=== PATIENT | male | born 1980 | race Caucasian/White ===

== ENCOUNTER 2016-12-28 09:36 | Emergency (ER) | payer MEDICAID ==
[2016-12-28 10:12] VITALS: O2SAT 98
[2016-12-28] MEDS ORDERED: Sodium Chloride 0.9% 1,000 ML IV STA (12:20)
[2016-12-28 12:23] LABS: BASO % 0.3 % (0.0-2.0); EOS % 0.1 % (0.0-4.0); HEMATOCRIT 36.6 % (35.0-51.0); LYMPH # 0.3 K/uL (1.0-4.3); LYMPH % 13.8 % (20.0-40.0); MEAN CELL VOLUME 86.7 fl (80.0-94.0); MEAN CORPUSCULAR HEMOGLOBIN 28.7 pg (27.0-31.0); MEAN CORPUSCULAR HGB CONC 33.1 g/dL (33.0-37.0); MEAN PLATELET VOLUME 8.6 fl (7.2-11.7); MONO # 0.6 K/uL (0.0-0.8); MONO % 27.8 % (0.0-10.0); NEUT # 1.3 K/uL (1.8-7.0); NRBC % 0.1 % (0.0-0.0); PLATELET COUNT 104 K/uL (130-400); RED CELL DISTRIBUTION WIDTH 16.1 % (11.5-14.5); WHITE BLOOD COUNT 2.2 K/uL (4.8-10.8)
[2016-12-28 12:28] LABS: ALB/GLOB RATIO 0.9 (1.0-2.1); ALKALINE PHOSPHATASE 113 U/L (38-126); ALT/SGPT 30 U/L (21-72); AST/SGOT 36 U/L (17-59); BILIRUBIN,TOTAL 0.5 mg/dl (0.2-1.3); BLOOD UREA NITROGEN 11 mg/dl (9-20); CALCIUM 8.7 mg/dL (8.4-10.2); CARBON DIOXIDE 27 mmol/L (22-30); CHLORIDE 104 mmol/L (98-107); GFR AFRICAN-AMERICAN > 60; GLUCOSE,RANDOM 108 mg/dL (75-110); LIPASE 71 U/L (23-300); POTASSIUM 3.7 MMOL/L (3.6-5.0); SODIUM 140 mmol/l (132-148); TOTAL PROTEIN 7.8 G/DL (6.3-8.2)
--- NOTE | 2016-12-28 13:19 | ED PDOC ---
HPI: Abdomen Time Seen by Provider: 12/28/16 10:58 Chief Complaint (Nursing): GI Problem Chief Complaint (Provider): sent form clinic Associated Symptoms: denies: Fever, Chills, Nausea, Vomiting, Diarrhea, Loss Of Appetite, Back Pain, Chest Pain, Constipation, Urinary Symptoms Additional Complaint(s): 36yo M in ER for eval of CRUZ and diarrhea x 2-3days without vomiting body aches and mild abd discomfort. state he had chicken 2d ago and noted continuous diarrhea since. Past Medical History Reviewed: Historical Data, Nursing Documentation, Vital Signs Vital Signs: Last Vital Signs Temp 99.0 F 12/28/16 11:03 Pulse 86 12/28/16 11:03 Resp 18 12/28/16 11:03 BP 113/66 12/28/16 11:03 Pulse Ox 98 12/28/16 13:20 - Medical History PMH: HIV (vl undetectable) - Family History Family History: States: Unknown Family Hx - Home Medications Home Medications: Ambulatory Orders Medication Instructions Recorded Dicyclomine [Bentyl] 20 mg PO Q6H PRN #20 tab 10/16/14 Ondansetron [Zofran Odt] 4 mg PO Q4H PRN #10 odt 10/16/14 Permethrin 5% [Permethrin 5% Cream] 60 gm EXT DAILY #1 tube 01/06/15 Triamcinolone 0.1% [Triamcinolone 0.1 cre TP BID #1 tube 01/22/15 0.1% Cream] Ondansetron ODT [Zofran ODT] 4 mg PO Q8 PRN #12 odt 10/19/15 - Allergies Allergies/Adverse Reactions: Allergies Allergy/AdvReac Type Severity Reaction Status Date / Time No Known Allergies Allergy Verified 12/28/16 11:03 Review of Systems ROS Statement: Except As Marked, All Systems Reviewed And Found Negative Constitutional: Negative for: Fever, Chills Gastrointestinal: Positive for: Nausea, Abdominal Pain, Diarrhea. Negative for : Vomiting Genitourinary Male: Negative for: Dysuria Skin: Negative for: Rash Neurological: Negative for: Weakness Physical Exam - Reviewed Nursing Documentation Reviewed: Yes Vital Signs Reviewed: Yes - Physical Exam Appears: Positive for: Well, Non-toxic, No Acute Distress Head Exam: Positive for: ATRAUMATIC, NORMAL INSPECTION, NORMOCEPHALIC Skin: Positive for: Normal Color, Warm, DRY Eye Exam: Positive for: EOMI, Normal appearance, PERRL Cardiovascular/Chest: Positive for: Regular Rate, Rhythm Respiratory: Positive for: CNT, Normal Breath Sounds Gastrointestinal/Abdominal: Positive for: Normal Exam, Bowel Sounds, Soft. Negative for: Tenderness Extremity: Positive for: Normal ROM Neurologic/Psych: Positive for: Alert, Oriented - Laboratory Results Result Diagrams: 12/28/16 12:08 12/28/16 12:08 - ECG O2 Sat by Pulse Oximetry: 98 - Progress ED Course And Treament: Orders Category Date Time Status COMP METABOLIC PANEL Stat Chem 12/28/16 12:08 Completed LIPASE Stat Chem 12/28/16 12:08 Completed CBC (WITH DIFFERENTIAL) Stat JANINA 12/28/16 12:08 Results Acetaminophen [Tylenol 325mg tab] Med 12/28/16 12:20 Discontinued 650 mg PO STAT STA Famotidine [Pepcid] Med 12/28/16 11:49 Discontinued 20 mg .ROUTE .STK-MED ONE Famotidine [Pepcid] Med 12/28/16 11:15 Discontinued 20 mg PO STAT STA Ondansetron [Zofran Inj] Med 12/28/16 11:49 Discontinued 4 mg .ROUTE .STK-MED ONE Ondansetron [Zofran Inj] Med 12/28/16 11:15 Discontinued 4 mg IVP STAT STA Sodium Chloride 0.9% 1,000 ml Med 12/28/16 12:20 Active IV 1,000 mls/hr IV Insertion (Saline Lock) ONCE NURSING 12/28/16 11:16 Active Medical Decision Making Medical Decision Making: impression: viral GI-pt feels much improved in ER and will be d/c with advised to use supportive care and f.u with pmd. Disposition - Clinical Impression Clinical Impression: Viral gastroenteritis - Patient ED Disposition Is Patient to be Admitted: No Counseled Patient/Family Regarding: Studies Performed, Diagnosis, Need For Followup - Disposition Disposition: Routine/Home Disposition Time: 13:45 Condition: STABLE Instructions: Gastroenteritis (ED)
[2016-12-28 13:54] VITALS: BP 123/69; PULSE 70; RESP 16; TEMP 98
[2016-12-28 13:55] LABS: METAMYELOCYTE 2 % (0-0); NEUTROPHIL 59 % (42-75); TOTAL CELLS COUNTED 100
== END 2016-12-28 13:54 | disposition home or self-care (01) ==
LOC: H.ER 09:36
DX: A08.4 Viral intestinal infection, unspecified (principal); B20 Human immunodeficiency virus [HIV] disease
CPT/HCPCS: 80053; 83690; 85025; 96374; 99284; J2405; J7040

== ENCOUNTER 2017-01-11 21:08 | Emergency (ER) | payer MEDICAID ==
[2017-01-11 21:22] VITALS: BP 122/72; PULSE 113; RESP 16; O2SAT 99
--- NOTE | 2017-01-11 21:47 | ED PDOC ---
HPI: General Adult Time Seen by Provider: 01/11/17 21:32 Chief Complaint (Nursing): Flu-like Symptoms Chief Complaint (Provider): Flu-like Symptoms History Per: Patient History/Exam Limitations: no limitations Onset/Duration Of Symptoms: Days (x1) Additional Complaint(s): 36yo M HIV positive in ER with one day of fever body aches frontal CRUZ x 1d. denies fever sore throat ear pain chest pain rash. Past Medical History Reviewed: Historical Data, Nursing Documentation, Vital Signs Vital Signs: Last Vital Signs Temp 101.3 F H 01/11/17 21:20 Pulse 113 H 01/11/17 21:20 Resp 16 01/11/17 21:20 BP 122/72 01/11/17 21:20 Pulse Ox 99 01/11/17 23:28 - Medical History PMH: HIV (vl undetectable) - Family History Family History: States: Unknown Family Hx - Home Medications Home Medications: Ambulatory Orders Medication Instructions Recorded Dicyclomine [Bentyl] 20 mg PO Q6H PRN #20 tab 10/16/14 Ondansetron [Zofran Odt] 4 mg PO Q4H PRN #10 odt 10/16/14 Permethrin 5% [Permethrin 5% Cream] 60 gm EXT DAILY #1 tube 01/06/15 Triamcinolone 0.1% [Triamcinolone 0.1 cre TP BID #1 tube 01/22/15 0.1% Cream] Ondansetron ODT [Zofran ODT] 4 mg PO Q8 PRN #12 odt 10/19/15 Oseltamivir Phosphate [Tamiflu] 75 mg PO BID #10 capsule 01/11/17 - Allergies Allergies/Adverse Reactions: Allergies Allergy/AdvReac Type Severity Reaction Status Date / Time No Known Allergies Allergy Verified 12/28/16 11:03 Review of Systems ROS Statement: Except As Marked, All Systems Reviewed And Found Negative Constitutional: Positive for: Fever, Chills ENT: Negative for: Ear Pain Respiratory: Positive for: Cough. Negative for: Sputum Gastrointestinal: Positive for: Nausea. Negative for: Diarrhea Musculoskeletal: Positive for: Other (Body Aches) Neurological: Positive for: Headache (frontal) Physical Exam - Reviewed Nursing Documentation Reviewed: Yes Vital Signs Reviewed: Yes - Physical Exam Appears: Positive for: Well, Non-toxic, No Acute Distress Head Exam: Positive for: ATRAUMATIC, NORMAL INSPECTION, NORMOCEPHALIC Skin: Positive for: Normal Color, Warm, DRY Eye Exam: Positive for: EOMI, Normal appearance, PERRL ENT: Positive for: Normal ENT Inspection Neck: Positive for: Normal, Painless ROM, Supple Cardiovascular/Chest: Positive for: Regular Rate, Rhythm. Negative for: Murmur Respiratory: Positive for: Normal Breath Sounds. Negative for: Respiratory Distress Neurologic/Psych: Positive for: Alert, Oriented, Gait (stable, no slurred speeech). Negative for: Motor/Sensory Deficits, Facial Droop - Laboratory Results Result Diagrams: 01/11/17 23:07 01/11/17 23:07 - ECG O2 Sat by Pulse Oximetry: 99 (RA) Pulse Ox Interpretation: Normal - Progress ED Course And Treament: pt was tested for the flu-test is negative pt was given Motrin-however CRUZ still present given Reglan, Tylenol and Benadryl with NS fluids. chest xray and labs re-eval VS. Orders Category Date Time Status CMP [COMP METABOLIC PANEL] Stat Chem 01/11/17 22:42 Uncollected CHEST TWO VIEWS (PA/LAT) [RAD] Stat Exams 01/11/17 21:42 Taken CBC (WITH DIFFERENTIAL) Stat JANINA 01/11/17 22:42 Uncollected Acetaminophen [Tylenol 325mg tab] Med 01/11/17 22:53 Discontinued 650 mg .ROUTE .STK-MED ONE Acetaminophen [Tylenol 325mg tab] Med 01/11/17 22:47 Stat 650 mg PO STAT STA DiphenhydrAMINE [Benadryl] Med 01/11/17 22:47 Stat 25 mg IVP STAT STA DiphenhydrAMINE [Benadryl] Med 01/11/17 22:53 Discontinued 50 mg .ROUTE .STK-MED ONE Ibuprofen [Motrin Tab] Med 01/11/17 22:06 Discontinued 600 mg .ROUTE .STK-MED ONE Ibuprofen [Motrin Tab] Med 01/11/17 21:59 Discontinued 600 mg PO STAT STA Metoclopramide [Reglan] Med 01/11/17 22:53 Discontinued 10 mg .ROUTE .STK-MED ONE Metoclopramide [Reglan] Med 01/11/17 22:47 Once 10 mg IVP ONCE ONE Sodium Chloride 0.9% 1,000 ml Med 01/11/17 21:59 Active IV 1,000 mls/hr INFLUENZA A B Stat Serology 01/11/17 22:07 Completed Medical Decision Making Medical Decision Making: Time: 21:40 Initial Impression: Viral illness- VS improved in ER pt feels much better, CRUZ has completely resolved and now afebrile. pt d/c with f.u with pmd for continued care. Plan: --X-Ray chest 2 views (due to patient's HIV status) --Influenza A B --Reevaluation labs: 01/11/17 01/11/17 01/11/17 23:07 23:07 22:07 WBC 3.9 L D RBC 4.14 L Hgb 12.2 Hct 36.2 MCV 87.4 MCH 29.4 MCHC 33.7 RDW 16.4 H Plt Count 124 L D MPV 8.1 Neut % (Auto) 66.7 Lymph % (Auto) 11.7 L Ida % (Auto) 21.1 H Eos % (Auto) 0.1 Baso % (Auto) 0.4 Neut # 2.6 Lymph # 0.5 L Ida # 0.8 Eos # 0.0 Baso # 0.0 Neutrophils % (Manual) Pending Lymphocytes % (Manual) Pending Monocytes % (Manual) Pending Platelet Estimate Pending Sodium 134 Potassium 3.3 L Chloride 103 Carbon Dioxide 25 Anion Gap 9 L BUN 14 Creatinine 0.8 Est GFR ( Amer) > 60 Est GFR (Non-Af Amer) > 60 Random Glucose 108 Calcium 8.0 L Total Bilirubin 0.7 AST 26 ALT 26 Alkaline Phosphatase 105 Total Protein 7.3 Albumin 3.4 L Globulin 3.8 Albumin/Globulin Ratio 0.9 L Influenza Typ A,B (EIA) Negative for flu a/b Scribe Attestation: Documented by Mynor George, acting as a scribe for Savita Dye PA-C Provider Scribe Attestation: All medical record entries made by the Scribe were at my direction and personally dictated by me. I have reviewed the chart and agree that the record accurately reflects my personal performance of the history, physical exam, medical decision making, and the department course for this patient. I have also personally directed, reviewed, and agree with the discharge instructions and disposition. Disposition - Clinical Impression Clinical Impression: Influenza-like symptoms - Patient ED Disposition Is Patient to be Admitted: No Counseled Patient/Family Regarding: Studies Performed, Diagnosis, Need For Followup, Rx Given - Disposition Disposition: Routine/Home Disposition Time: 23:34 Condition: STABLE Prescriptions: Oseltamivir Phosphate [Tamiflu] 75 mg PO BID #10 capsule Instructions: Influenza (ED) Forms: [facility] (Swedish)
[2017-01-11] MEDS ORDERED: Sodium Chloride 0.9% 1,000 ML IV STA (21:59)
[2017-01-11] MEDS ORDERED: DiphenhydrAMINE 50 mg/ml Inj IVP STA (22:47)
[2017-01-11] MEDS ORDERED: DiphenhydrAMINE 50 mg/ml Inj ONE (22:53)
[2017-01-11 23:17] LABS: BASO % 0.4 % (0.0-2.0); EOS % 0.1 % (0.0-4.0); HEMATOCRIT 36.2 % (35.0-51.0); LYMPH # 0.5 K/uL (1.0-4.3); LYMPH % 11.7 % (20.0-40.0); MEAN CELL VOLUME 87.4 fl (80.0-94.0); MEAN CORPUSCULAR HEMOGLOBIN 29.4 pg (27.0-31.0); MEAN CORPUSCULAR HGB CONC 33.7 g/dL (33.0-37.0); MEAN PLATELET VOLUME 8.1 fl (7.2-11.7); MONO # 0.8 K/uL (0.0-0.8); MONO % 21.1 % (0.0-10.0); NEUT # 2.6 K/uL (1.8-7.0); NEUT % 66.7 % (50.0-75.0); NRBC % 0.3 % (0.0-0.0); PLATELET COUNT 124 K/uL (130-400); RED CELL DISTRIBUTION WIDTH 16.4 % (11.5-14.5); WHITE BLOOD COUNT 3.9 K/uL (4.8-10.8)
[2017-01-11 23:24] LABS: ALB/GLOB RATIO 0.9 (1.0-2.1); ALKALINE PHOSPHATASE 105 U/L (38-126); ALT/SGPT 26 U/L (21-72); AST/SGOT 26 U/L (17-59); BILIRUBIN,TOTAL 0.7 mg/dl (0.2-1.3); BLOOD UREA NITROGEN 14 mg/dl (9-20); CARBON DIOXIDE 25 mmol/L (22-30); CHLORIDE 103 mmol/L (98-107); GFR AFRICAN-AMERICAN > 60; GLUCOSE,RANDOM 108 mg/dL (75-110); SODIUM 134 mmol/l (132-148); TOTAL PROTEIN 7.3 G/DL (6.3-8.2)
[2017-01-11 23:31] LABS: POTASSIUM 3.3 MMOL/L (3.6-5.0)
[2017-01-11] MEDS ORDERED: Potassium Chloride 10 mEq ER Tab PO ONE (23:35)
[2017-01-11 23:36] VITALS: TEMP 99.4
[2017-01-11] MEDS ORDERED: Potassium Chloride 20 mEq ER Tab PO ONE (23:39)
[2017-01-12 04:34] LABS: NEUTROPHIL 75 % (42-75); STOMATOCYTES SLIGHT; TOTAL CELLS COUNTED 100
--- NOTE | 2017-01-12 05:52 | RAD ---
HISTORY: cough COMPARISON: No prior. TECHNIQUE: Chest PA and lateral FINDINGS: LUNGS: No active pulmonary disease. PLEURA: No significant pleural effusion identified. No pneumothorax apparent. CARDIOVASCULAR: Normal. OSSEOUS STRUCTURES: No significant abnormalities. VISUALIZED UPPER ABDOMEN: Normal. OTHER FINDINGS: None. IMPRESSION: No active disease.
== END 2017-01-12 00:08 | disposition home or self-care (01) ==
LOC: H.ER 21:08
DX: R50.9 Fever, unspecified (principal); R05 Cough; R11.0 Nausea; Z21 Asymptomatic human immunodeficiency virus [HIV] infection status
CPT/HCPCS: 71020; 80053; 85025; 87804; 96361; 96374; 96375; 99282; J1200; J2765; J7040

== ENCOUNTER 2017-01-15 09:43 | Emergency (ER) | payer MEDICAID ==
[2017-01-15 09:50] VITALS: BMI 23.6
[2017-01-15 09:51] VITALS: BP 111/64; PULSE 101; RESP 20; TEMP 99.6; O2SAT 97
[2017-01-15] MEDS ORDERED: Sodium Chloride 0.9% 1,000 ML IV STA ×2 (11:13→11:56)
[2017-01-15] MEDS ORDERED: DiphenhydrAMINE 50 mg/ml Inj IVP STA (11:14)
[2017-01-15] MEDS ORDERED: DiphenhydrAMINE 50 mg/ml Inj ONE (11:41)
--- NOTE | 2017-01-15 11:47 | ED PDOC ---
HPI: Abdomen Time Seen by Provider: 01/15/17 10:53 Chief Complaint (Nursing): Abdominal Pain Chief Complaint (Provider): Vomiting and Diarrhea History Per: Patient Onset/Duration Of Symptoms: Days (14 days), Intermittent Episodes Current Symptoms Are (Timing): Still Present Additional Complaint(s): 36 y/o male with a past medical history of HIV, presents to the ED complaining of intermittent episodes of vomiting and diarrhea, with an onset of 14 days ago. Patient reports of eating a full meal yesterday, but then suffering from 10 episodes of vomiting and diarrhea. Of note, the patient stopped taking his antiretrovirals and comes in with a cd4 count of 34. Patient also reports of having a headache, nausea, and diarrhea, but denies any fever, neck stiffness, or vomiting. Against Medical Advice - AMA Patient Left Against Medical Advice: The patient declines admission to the hospital and wishes to leave the Emergency Department. This action is against my medical advice. This decision was made with informed refusal. The patient was told that admission to the hospital is necessary. Explanation of the reasons why were discussed. The risks of leaving were explained to the patient and include, but are not limited to, worsening of known or currently unknown conditions, permanent disability and from undiagnosed or untreated conditions. The patient has the capacity to make this informed decision and understands my explanation of the current medical problem and risks of leaving. The patient voluntarily accepts these risks and signed an AMA form documenting our conversation. The patient was given the opportunity to ask questions and reconsider. The patient was encouraged to return to the Emergency Department at any time for further care. [id number] Patient has elected to leave [facility]. Past Medical History Reviewed: Historical Data, Nursing Documentation, Vital Signs Vital Signs: Last Vital Signs Temp 99.6 F 01/15/17 09:50 Pulse 101 H 01/15/17 09:50 Resp 20 01/15/17 09:50 BP 111/64 01/15/17 09:50 Pulse Ox 97 01/16/17 15:50 - Medical History PMH: HIV (vl undetectable) - Surgical History Surgical History: No Surg Hx - Family History Family History: States: Unknown Family Hx - Social History Current smoker - smoking cessation education provided: No Ex-Smoker (has not smoked in the last 12 months): No Alcohol: None Drugs: Denies - Home Medications Home Medications: Ambulatory Orders Medication Instructions Recorded Dicyclomine [Bentyl] 20 mg PO Q6H PRN #20 tab 10/16/14 Ondansetron [Zofran Odt] 4 mg PO Q4H PRN #10 odt 10/16/14 Permethrin 5% [Permethrin 5% Cream] 60 gm EXT DAILY #1 tube 01/06/15 Triamcinolone 0.1% [Triamcinolone 0.1 cre TP BID #1 tube 01/22/15 0.1% Cream] Ondansetron ODT [Zofran ODT] 4 mg PO Q8 PRN #12 odt 10/19/15 Oseltamivir Phosphate [Tamiflu] 75 mg PO BID #10 capsule 01/11/17 - Allergies Allergies/Adverse Reactions: Allergies Allergy/AdvReac Type Severity Reaction Status Date / Time No Known Allergies Allergy Verified 12/28/16 11:03 Review of Systems ROS Statement: Except As Marked, All Systems Reviewed And Found Negative Constitutional: Negative for: Fever Gastrointestinal: Positive for: Nausea, Diarrhea. Negative for: Vomiting Physical Exam - Reviewed Nursing Documentation Reviewed: Yes Vital Signs Reviewed: Yes - Physical Exam Appears: Positive for: Non-toxic, No Acute Distress Head Exam: Positive for: ATRAUMATIC, NORMOCEPHALIC Skin: Positive for: Normal Color, Warm Eye Exam: Positive for: Normal appearance, EOMI, PERRL ENT: Positive for: Normal ENT Inspection Neck: Positive for: Normal, Painless ROM, Supple Cardiovascular/Chest: Positive for: Regular Rate, Rhythm. Negative for: Murmur Respiratory: Positive for: Normal Breath Sounds. Negative for: Respiratory Distress Gastrointestinal/Abdominal: Positive for: Normal Exam, Soft, Tenderness ( bilateral upper quarant). Negative for: Guarding, Rebound Back: Positive for: Normal Inspection Extremity: Positive for: Normal ROM. Negative for: Pedal Edema, Deformity Neurologic/Psych: Positive for: Alert, Oriented. Negative for: Motor/Sensory Deficits - Laboratory Results Result Diagrams: 01/15/17 11:33 01/15/17 11:33 - ECG O2 Sat by Pulse Oximetry: 97 (RA) Pulse Ox Interpretation: Normal Medical Decision Making Medical Decision Making: Time: --11:10 Impression: --36 y/o male with headache, gastroenteritis Plan: --CT ABD & Pelvis IV Contrast --head w/o contrast --labs --ED Urine Dipstick --Benadryl 25 mg IVP --IV fluids -Promethazine 25 mg IV --Urinalysis Reassess --13:36 FINDINGS: CT Abdomen and Pelvis with contrast LOWER THORAX: Unremarkable. LIVER: Minimal periportal edema with mild portal lymphadenopathy. GALLBLADDER AND BILE DUCTS: Unremarkable. PANCREAS: Unremarkable. No gross lesion or ductal dilatation. SPLEEN: Splenomegaly. ADRENALS: Unremarkable. No mass. KIDNEYS AND URETERS: Unremarkable. No hydronephrosis. No solid mass. VASCULATURE: Unremarkable. No aortic aneurysm. BOWEL: Unremarkable. No obstruction. No gross mural thickening. APPENDIX: Normal appendix. PERITONEUM: Unremarkable. No free fluid. No free air. LYMPH NODES: Unremarkable. No enlarged lymph nodes. BLADDER: Unremarkable. REPRODUCTIVE: Unremarkable. BONES: No acute fracture. OTHER FINDINGS: None. IMPRESSION: Splenomegaly with minimal periportal edema and periportal lymph nodes. Correlate with liver function studies. --Time: 13:32 FINDINGS:CT HEAD WITHOUT CONTRAST HEMORRHAGE: No intracranial hemorrhage. BRAIN: No mass effect or edema. No atrophy or chronic microvascular ischemic changes. VENTRICLES: Unremarkable. No hydrocephalus. CALVARIUM: Unremarkable. PARANASAL SINUSES: Unremarkable as visualized. No significant inflammatory changes. MASTOID AIR CELLS: Unremarkable as visualized. No inflammatory changes. OTHER FINDINGS: None. IMPRESSION: Normal CT of the Head. Scribe Attestation: Documented by Babak Combs acting as a scribe for Marcelle Lamb MD. Provider Attestation: All medical record entries made by the Scribe were at my direction and personally dictated by me. I have reviewed the chart and agree that the record accurately reflects my personal performance of the history, physical exam, medical decision making, and the department course for this patient. I have also personally directed, reviewed, and agree with the discharge instructions and disposition. Disposition - Clinical Impression Clinical Impression: Infectious mononucleosis, Thrombocytopenia associated with AIDS - Disposition Disposition: Against Medical Advice Disposition Time: 15:00 Condition: UNKNOWN Forms: [employer] (Turkish)
[2017-01-15 11:49] LABS: BASO % 0.3 % (0.0-2.0); LYMPH # 0.2 K/uL (1.0-4.3); LYMPH % 10.4 % (20.0-40.0); MEAN CELL VOLUME 86.4 fl (80.0-94.0); MEAN CORPUSCULAR HEMOGLOBIN 28.7 pg (27.0-31.0); MEAN CORPUSCULAR HGB CONC 33.2 g/dL (33.0-37.0); MEAN PLATELET VOLUME 8.7 fl (7.2-11.7); MONO # 0.6 K/uL (0.0-0.8); MONO % 30.2 % (0.0-10.0); NEUT # 1.2 K/uL (1.8-7.0); NEUT % 59.1 % (50.0-75.0); NRBC % 0.1 % (0.0-0.0); PLATELET COUNT 79 K/uL (130-400); RED CELL DISTRIBUTION WIDTH 16.2 % (11.5-14.5); WHITE BLOOD COUNT 2.1 K/uL (4.8-10.8)
[2017-01-15 12:05] LABS: BLOOD UREA NITROGEN 13 mg/dl (9-20); GFR AFRICAN-AMERICAN > 60; GLUCOSE,RANDOM 103 mg/dL (75-110); SODIUM 136 mmol/l (132-148)
[2017-01-15 12:06] LABS: ALB/GLOB RATIO 0.9 (1.0-2.1); ALKALINE PHOSPHATASE 89 U/L (38-126); ALT/SGPT 34 U/L (21-72); AST/SGOT 25 U/L (17-59); BILIRUBIN,TOTAL 0.7 mg/dl (0.2-1.3); CALCIUM 8.7 mg/dL (8.4-10.2); CARBON DIOXIDE 24 mmol/L (22-30); CHLORIDE 101 mmol/L (98-107); LIPASE 60 U/L (23-300); POTASSIUM 3.3 MMOL/L (3.6-5.0); TOTAL PROTEIN 7.6 G/DL (6.3-8.2)
[2017-01-15] MEDS ORDERED: Potassium Chloride 20 mEq ER Tab PO STA (12:09)
[2017-01-15] MEDS ORDERED: Sodium Chloride 0.9% 50 ML IV ONE (12:44)
[2017-01-15] MEDS ORDERED: Iohexol 300 100 ML IJ ONE (12:44)
[2017-01-15 13:09] LABS: BLASTS 1 % (0-0); METAMYELOCYTE 2 % (0-0); NEUTROPHIL 60 % (42-75); REACTIVE LYMPHOCYTES 1 % (0-0); TOTAL CELLS COUNTED 100
[2017-01-15 13:10] LABS: LARGE PLATELETS PRESENT
--- NOTE | 2017-01-15 13:33 | CT ---
PROCEDURE: CT HEAD WITHOUT CONTRAST. HISTORY: Frontal CRUZ COMPARISON: None available. TECHNIQUE: Axial computed tomography images were obtained through the head/brain without intravenous contrast. Radiation dose: Total exam DLP = mGy-cm. This CT exam was performed using one or more of the following dose reduction techniques: Automated exposure control, adjustment of the mA and/or kV according to patient size, and/or use of iterative reconstruction technique. FINDINGS: HEMORRHAGE: No intracranial hemorrhage. BRAIN: No mass effect or edema. No atrophy or chronic microvascular ischemic changes. VENTRICLES: Unremarkable. No hydrocephalus. CALVARIUM: Unremarkable. PARANASAL SINUSES: Unremarkable as visualized. No significant inflammatory changes. MASTOID AIR CELLS: Unremarkable as visualized. No inflammatory changes. OTHER FINDINGS: None. IMPRESSION: Normal CT of the Head.
--- NOTE | 2017-01-15 13:37 | CT ---
PROCEDURE: CT Abdomen and Pelvis with contrast HISTORY: BUQ pain, diarrhea, HIV COMPARISON: None. TECHNIQUE: Contrast dose: 90 cc of Omnipaque 300 Radiation dose: Total exam DLP = 577 mGy-cm. This CT exam was performed using one or more of the following dose reduction techniques: Automated exposure control, adjustment of the mA and/or kV according to patient size, and/or use of iterative reconstruction technique. FINDINGS: LOWER THORAX: Unremarkable. LIVER: Minimal periportal edema with mild portal lymphadenopathy. GALLBLADDER AND BILE DUCTS: Unremarkable. PANCREAS: Unremarkable. No gross lesion or ductal dilatation. SPLEEN: Splenomegaly. ADRENALS: Unremarkable. No mass. KIDNEYS AND URETERS: Unremarkable. No hydronephrosis. No solid mass. VASCULATURE: Unremarkable. No aortic aneurysm. BOWEL: Unremarkable. No obstruction. No gross mural thickening. APPENDIX: Normal appendix. PERITONEUM: Unremarkable. No free fluid. No free air. LYMPH NODES: Unremarkable. No enlarged lymph nodes. BLADDER: Unremarkable. REPRODUCTIVE: Unremarkable. BONES: No acute fracture. OTHER FINDINGS: None. IMPRESSION: Splenomegaly with minimal periportal edema and periportal lymph nodes. Correlate with liver function studies.
[2017-01-15] MEDS ORDERED: Potassium Chloride 20 mEq ER Tab PO ONE (13:55)
[2017-01-15 14:27] LABS: URINE BILIRUBIN NEGATIVE (NEGATIVE); URINE BLOOD SMALL (NEGATIVE); URINE COLOR YELLOW (YELLOW); URINE GLUCOSE (UA) NEG (Normal); URINE KETONE TRACE mg/dL (NEGATIVE); URINE LEUKOCYTE ESTERASE NEG Leu/uL (Negative); URINE PROTEIN NEGATIVE (NEGATIVE); URINE UROBILINOGEN 0.2-1.0 mg/dL (0.2-1.0); WBC URINE 1 /hpf (0-5)
[2017-01-15 14:29] LABS: RBC URINE 2 /hpf (0-3)
== END 2017-01-15 15:00 | disposition left against medical advice (07) ==
LOC: H.ER 09:43
DX: B27.90 Infectious mononucleosis, unspecified without complication (principal); D69.59 Other secondary thrombocytopenia; B20 Human immunodeficiency virus [HIV] disease; Z87.891 Personal history of nicotine dependence
CPT/HCPCS: 70450; 74177; 80053; 81003; 83690; 85025; 86308; 87070; 87430; 96374; 96375; 99283; J2405; J2550; J7040; Q9967

== ENCOUNTER 2017-02-02 11:18 | Emergency (ER) | payer MEDICAID ==
[2017-02-02 11:25] VITALS: BP 137/88; PULSE 122; RESP 18; TEMP 99.8; O2SAT 98
[2017-02-02 11:26] VITALS: BMI 23.8
[2017-02-02] MEDS ORDERED: Sodium Chloride 0.9% 1,000 ML IV STA (11:47)
--- NOTE | 2017-02-02 11:59 | ED PDOC ---
HPI: Headache Time Seen by Provider: 02/02/17 11:31 Chief Complaint (Nursing): Headache Chief Complaint (Provider): Cough and headache History Per: Patient History/Exam Limitations: no limitations Onset/Duration Of Symptoms: Days (x3) Current Symptoms Are (Timing): Still Present Additional Complaint(s): Kerwin Gautam is a 37 year old male with a past medical history of HIV, compliant with medication, presenting to the ED for an evaluation of a recurrent cough associated with a headache occurring for 3 days prior to arrival. The patient reports having multiple episodes of congestion, runny nose , cough, and headache throughout the month with frequent visits to the ED. Today , the patient denies any congestion or runny nose and states he is here only for his cough and headache. The patient reports this is not the worst headache of his life and states feeling his headache in his frontal lobe area. He also states being administered a medication "that starts with an S", exact name unknown, which resolved his headache symptoms during his last ED visit and would like to be given this medication again. He has taken Robitussin for his cough, with mild relief. Additionally, the patient reports testicular pain. He denies being sexually active, nausea, vomiting, diarrhea, leg pain, abdominal pain, neck pain, any vision changes, fever, chills, dysuria, urinary frequency, urinary incontinence, penile discharge, shortness of breath, chest pain, dizziness, numbness, tingling, or weakness. Of note, during the patient's last ED visit he was positive for [place]. PMD: Reina Sanchez MD Past Medical History Reviewed: Historical Data, Nursing Documentation, Vital Signs Vital Signs: Last Vital Signs Temp 99.8 F H 02/02/17 11:24 Pulse 122 H 02/02/17 11:24 Resp 18 02/02/17 11:24 BP 137/88 02/02/17 11:24 Pulse Ox 98 02/02/17 11:24 - Medical History PMH: HIV (vl undetectable) - Surgical History Surgical History: No Surg Hx - Family History Family History: States: No Known Family Hx - Social History Current smoker - smoking cessation education provided: No Ex-Smoker (has not smoked in the last 12 months): No Alcohol: Social Drugs: Denies - Home Medications Home Medications: Ambulatory Orders Medication Instructions Recorded Dicyclomine [Bentyl] 20 mg PO Q6H PRN #20 tab 10/16/14 Ondansetron [Zofran Odt] 4 mg PO Q4H PRN #10 odt 10/16/14 Permethrin 5% [Permethrin 5% Cream] 60 gm EXT DAILY #1 tube 01/06/15 Triamcinolone 0.1% [Triamcinolone 0.1 cre TP BID #1 tube 01/22/15 0.1% Cream] Ondansetron ODT [Zofran ODT] 4 mg PO Q8 PRN #12 odt 10/19/15 Oseltamivir Phosphate [Tamiflu] 75 mg PO BID #10 capsule 01/11/17 - Allergies Allergies/Adverse Reactions: Allergies Allergy/AdvReac Type Severity Reaction Status Date / Time No Known Allergies Allergy Verified 12/28/16 11:03 Review of Systems ROS Statement: Except As Marked, All Systems Reviewed And Found Negative Constitutional: Negative for: Fever, Chills Eyes: Negative for: Vision Change ENT: Negative for: Nose Discharge, Nose Congestion Respiratory: Positive for: Cough. Negative for: Shortness of Breath Gastrointestinal: Negative for: Nausea, Vomiting, Abdominal Pain, Diarrhea Genitourinary Male: Positive for: Scrotal Pain (testicular pain). Negative for : Dysuria, Frequency, Incontinence, Penile Discharge Musculoskeletal: Negative for: Neck Pain, Leg Pain Neurological: Positive for: Headache. Negative for: Weakness, Numbness, Dizziness, Other (no tingling) Physical Exam - Reviewed Nursing Documentation Reviewed: Yes Vital Signs Reviewed: Yes - Physical Exam Appears: Positive for: Non-toxic, No Acute Distress Head Exam: Positive for: ATRAUMATIC, NORMOCEPHALIC Skin: Positive for: Normal Color, Warm, Dry Eye Exam: Positive for: Normal appearance, EOMI, PERRL ENT: Positive for: Normal ENT Inspection, Pharynx Is (normal) Neck: Positive for: Normal, Painless ROM, Supple Cardiovascular/Chest: Positive for: Regular Rate, Rhythm, Chest Non Tender. Negative for: Murmur Respiratory: Positive for: Normal Breath Sounds. Negative for: Respiratory Distress Gastrointestinal/Abdominal: Positive for: Normal Exam, Soft. Negative for: Tenderness Male Genital Exam: Positive for: testicular tenderness (R) (mild), other ( positive cremasteric reflex). Negative for: bleeding, epididymal tenderness, erythema, inguinal tenderness, scrotum tenderness (R), scrotum tenderness (L), testicular tenderness (L), urethral discharge Back: Positive for: Normal Inspection. Negative for: L CVA Tenderness, R CVA Tenderness Extremity: Positive for: Normal ROM. Negative for: Pedal Edema, Deformity Neurologic/Psych: Positive for: Alert, aoc operations intelligence officer II-XII (intact), Oriented (x3). Negative for: Motor/Sensory Deficits - Laboratory Results Result Diagrams: 02/02/17 12:00 02/02/17 12:00 Interpretation Of Abn Labs: no acute - ECG O2 Sat by Pulse Oximetry: 98 (RA) Pulse Ox Interpretation: Normal - CT Scan/US US Other Rad Studies (CT/US): Read By Radiologist Other Rad Interpretation: epidydimal cyst - Progress ED Course And Treament: 1422: Stable. AAOx3. Pain free. Tolerated PO. Fu with pcp. Medical Decision Making Medical Decision Making: Time: 11:31 Impression: Cough, headache, right testicular pain Plan: * CMP * CBC (with differential) * Infectious Mononucleosis * NS 0.9% 1,000 ml IV 1,000 mls/hr * Reglan 10 mg IV * Tylenol 650 mg PO * [US] Testes Duplex Complete * Reevaluation Scribe Attestation: Documented by Tere Whitlock, acting as a scribe for Vic Phelps MD. Provider Scribe Attestation: All medical record entries made by the Scribe were at my direction and personally dictated by me. I have reviewed the chart and agree that the record accurately reflects my personal performance of the history, physical exam, medical decision making, and the department course for this patient. I have also personally directed, reviewed, and agree with the discharge instructions and disposition. Disposition - Clinical Impression Clinical Impression: URI (upper respiratory infection), Headache - Patient ED Disposition Is Patient to be Admitted: No Counseled Patient/Family Regarding: Studies Performed, Diagnosis, Need For Followup - Disposition Referrals: [facility] [place] [facility] [Outside] - 02/03/17 Disposition: Routine/Home Disposition Time: 14:23 Condition: STABLE Additional Instructions: Return if not better in 3 days. Instructions: General Headache (ED), Upper Respiratory Infection (ED) Forms: [employer] ([place]), [facility] ED School/Work Excuse
[2017-02-02 12:13] LABS: BASO % 0.7 % (0.0-2.0); EOS % 0.1 % (0.0-4.0); HEMATOCRIT 39.8 % (35.0-51.0); LYMPH # 0.4 K/uL (1.0-4.3); MEAN CELL VOLUME 87.4 fl (80.0-94.0); MEAN CORPUSCULAR HEMOGLOBIN 28.9 pg (27.0-31.0); MEAN PLATELET VOLUME 8.4 fl (7.2-11.7); MONO # 0.9 K/uL (0.0-0.8); MONO % 19.7 % (0.0-10.0); NEUT # 3.1 K/uL (1.8-7.0); NEUT % 71.5 % (50.0-75.0); NRBC % 0.3 % (0.0-0.0); PLATELET COUNT 109 K/uL (130-400); RED CELL DISTRIBUTION WIDTH 16.6 % (11.5-14.5); WHITE BLOOD COUNT 4.4 K/uL (4.8-10.8)
[2017-02-02 12:34] LABS: ALKALINE PHOSPHATASE 96 U/L (38-126); ALT/SGPT 29 U/L (21-72); AST/SGOT 25 U/L (17-59); BILIRUBIN,TOTAL 1.2 mg/dl (0.2-1.3); BLOOD UREA NITROGEN 14 mg/dl (9-20); CARBON DIOXIDE 26 mmol/L (22-30); CHLORIDE 100 mmol/L (98-107); GFR AFRICAN-AMERICAN > 60; GLUCOSE,RANDOM 133 mg/dL (75-110); POTASSIUM 3.9 MMOL/L (3.6-5.0); SODIUM 129 mmol/l (132-148); TOTAL PROTEIN 8.5 G/DL (6.3-8.2)
--- NOTE | 2017-02-02 13:13 | US ---
HISTORY: testicular pain TECHNIQUE: Realtime sonography through the scrotum with color and doppler flow. COMPARISON: None Available. FINDINGS: RIGHT TESTICLE: Measures 0.0 x 1.9 x 3.3 cm. Normal echotexture and flow. RIGHT EPIDIDYMIS: Epididymal head measures 0.9 x 0.6 x 0.9 cm. Grossly unremarkable appearance with normal flow. LEFT TESTICLE: Measures 4.2 x 1.6 x 2.6 cm. Normal echotexture and flow. LEFT EPIDIDYMIS: Epididymal head measures 1.2 x 0.9 x 1.0 cm. . Normal flow. Simple cyst left epididymal head 0.9 x 0.5 x 0.9 cm HYDROCELE: Minimal bilateral hydroceles VARICOCELE: None. OTHER FINDINGS: None. IMPRESSION: Normal bilateral intratesticular flow. No intratesticular masses Left epididymal head simple cyst measuring up to 0.9 cm. Minimal bilateral hydroceles
[2017-02-02 14:27] LABS: METAMYELOCYTE 1 % (0-0); NEUTROPHIL 69 % (42-75); TOTAL CELLS COUNTED 100
[2017-02-02 14:28] LABS: LARGE PLATELETS PRESENT
== END 2017-02-02 14:43 | disposition home or self-care (01) ==
LOC: H.ER 11:18
DX: R51 Headache (principal); J06.9 Acute upper respiratory infection, unspecified; Z21 Asymptomatic human immunodeficiency virus [HIV] infection status; N43.3 Hydrocele, unspecified; Z87.891 Personal history of nicotine dependence
CPT/HCPCS: 80053; 85025; 86308; 93975; 96360; 99282; J2405; J2765; J7040

== ENCOUNTER 2017-04-20 10:51 | Inpatient (IN) | payer MEDICAID ==
[2017-04-20 11:15] VITALS: BMI 22.2
[2017-04-20] MEDS ORDERED: Iohexol 240 (50 ml) PO ONE (12:12)
[2017-04-20] MEDS ORDERED: Sodium Chloride 0.9% 1,000 ML IV SCH (12:15)
[2017-04-20 12:30] LABS: BASO % 0.2 % (0.0-2.0); HEMOGLOBIN 10.5 g/dL (12.0-18.0); LYMPH # 0.1 K/uL (1.0-4.3); LYMPH % 5.5 % (20.0-40.0); MEAN CELL VOLUME 81.5 fl (80.0-94.0); MEAN CORPUSCULAR HEMOGLOBIN 27.5 pg (27.0-31.0); MEAN CORPUSCULAR HGB CONC 33.7 g/dL (33.0-37.0); MEAN PLATELET VOLUME 8.2 fl (7.2-11.7); MONO # 0.4 K/uL (0.0-0.8); MONO % 17.6 % (0.0-10.0); NEUT # 1.6 K/uL (1.8-7.0); NEUT % 76.7 % (50.0-75.0); NRBC % 0.1 % (0.0-0.0); PLATELET COUNT 124 K/uL (130-400); RBC 3.82 Mil/uL (4.40-5.90); RED CELL DISTRIBUTION WIDTH 17.3 % (11.5-14.5)
[2017-04-20 12:39] LABS: ALB/GLOB RATIO 0.8 (1.0-2.1); ALBUMIN 3.2 g/dL (3.5-5.0); ALT/SGPT 36 U/L (21-72); AST/SGOT 39 U/L (17-59); BILIRUBIN,DIRECT 0.3 mg/ml (0.0-0.4); BLOOD UREA NITROGEN 9 mg/dl (9-20); CALCIUM 8.7 mg/dL (8.4-10.2); GFR AFRICAN-AMERICAN > 60; GFR NON-AFRICAN AMERICAN > 60
--- NOTE | 2017-04-20 12:39 | ED PDOC ---
HPI: Abdomen Time Seen by Provider: 04/20/17 11:38 Chief Complaint (Nursing): Abdominal Pain Chief Complaint (Provider): Diarrhea and Loss of Weight History Per: Patient History/Exam Limitations: no limitations Onset/Duration Of Symptoms: Days (14), Intermittent Episodes Current Symptoms Are (Timing): Still Present Context: Food Severity: Moderate Location Of Pain/Discomfort: Diffuse Quality Of Discomfort: Unable To Describe Associated Symptoms: Diarrhea, Other (loss of weight). denies: Vomiting Exacerbating Factors: Other (pt is HIV+) Alleviating Factors: None Past Medical History Vital Signs: Last Vital Signs Temp 102.4 F H 04/28/17 09:33 Pulse 90 04/28/17 08:05 Resp 20 04/28/17 08:05 BP 125/84 04/28/17 08:05 Pulse Ox 97 04/28/17 08:05 - Medical History PMH: HIV (vl undetectable) - Family History Family History: States: No Known Family Hx - Home Medications Home Medications: Ambulatory Orders Medication Instructions Recorded Elviteg/Tayler/Emtric/Tenofo Dis 1 tab PO DAILY 04/20/17 [Stribild Tablet] Sulfamethoxazole/Trimethoprim 1 tab PO DAILY 04/20/17 [Bactrim DS Tab] - Allergies Allergies/Adverse Reactions: Allergies Allergy/AdvReac Type Severity Reaction Status Date / Time No Known Allergies Allergy Verified 12/28/16 11:03 Review of Systems Gastrointestinal: Positive for: Diarrhea. Negative for: Nausea, Vomiting, Melena, Hematochezia, Hematemesis Genitourinary Male: Negative for: Dysuria Skin: Negative for: Rash, Lesions, Jaundice Physical Exam - Reviewed Nursing Documentation Reviewed: Yes Vital Signs Reviewed: Yes - Physical Exam Appears: Positive for: Well, No Acute Distress Skin: Positive for: Normal Color Neck: Positive for: Normal, Painless ROM, Supple Cardiovascular/Chest: Positive for: Regular Rate, Rhythm, Chest Non Tender. Negative for: Edema, Gallop, JVD, Murmur Respiratory: Positive for: Normal Breath Sounds. Negative for: Crackles, Rales , Rhonchi, Stridor, Wheezing, Respiratory Distress, Plerual Rub Pulses-Carotid (R): 2+ Gastrointestinal/Abdominal: Positive for: Bowel Sounds, Tenderness (left upper quadrant tenderness to palpation), Guarding. Negative for: Organomegaly, Rebound, Asicites - Laboratory Results Result Diagrams: 04/28/17 06:15 04/28/17 06:15 - ECG O2 Sat by Pulse Oximetry: 97 Medical Decision Making Medical Decision Making: R/O infectious cause of diarrhea>malignancy>HIV cause CT ABD and PELVIS with CONTTRAST PROCEDURE: CT scan abdomen and pelvis dated 04/20/2017. HISTORY: Diarrhea with significant loss of weight COMPARISON: Comparison made with prior CT scan of the abdomen pelvis dated 01/15/2017 TECHNIQUE: Contiguous axial images of the abdomen and pelvis performed following oral and intravenous contrast. Additional 2 dimensional sagittal and coronal reformats provided. Was administered. No IV contrast given. Coronal and Sagittal reformats generated. This CT exam was performed using one or more of the following dose reduction techniques: Automated exposure control, adjustment of the mA and/or kV according to patient size, and/or use of iterative reconstruction technique. Contrast dose: 95 cc of Omnipaque 300 contrast Radiation dose: Total exam DLP = 387.94 mGy-cm. FINDINGS: LOWER THORAX: Lung bases clear. No infiltrate effusion or basilar pneumothorax. Tiny hiatal hernia. Heart size within range of normal. No significant pericardial effusion. LIVER: The liver is enlarged measuring over 20 cm in CC dimension. . There are multiple ill-defined on varying sized rounded low-attenuation lesions scattered throughout the hepatic parenchyma of uncertain etiology. . Rule out neoplastic process such as lymphoma -leukemia or metastasis. Infectious/ inflammatory process not excluded. Additionally, there is mild periportal edema nonspecific. . Small of calcification anterior aspect left lobe liver unchanged. GALLBLADDER AND BILE DUCTS: The gallbladder is physiologically distended. No evidence of intraluminal gallbladder calculi. PANCREAS: The visualized portions of the pancreas appear grossly unremarkable. No obvious pancreatic mass collection or calcification. No significant pancreatic ductal dilatation. . SPLEEN: The spleen is markedly enlarged measuring approximately 17.5 cm in the CC dimension. . Multiple very vague low-attenuation foci are also seen scattered throughout the splenic parenchyma of uncertain etiology. Changes may be related to similar findings in the hepatic parenchyma. . ADRENALS: No definitive adrenal lesions. KIDNEYS AND URETERS: Unremarkable. No stone or hydronephrosis. BLADDER: The urinary bladder is incompletely distended which in part accounts for thick- walled appearance. Muscular hypertrophy may contribute. Possibility of a cystitis not excluded. REPRODUCTIVE: Prostate gland measures approximately 3.4 cm in transverse dimension. APPENDIX: Unremarkable. BOWEL: Evaluation of the bowel is limited due to incomplete opacification. The stomach is incompletely distended which in part accounts for thick-walled appearance. Gastritis or other intrinsic/invasive wall lesion not excluded. The visualized loops of small bowel exhibit relatively normal contour and caliber. No evidence acute mechanical small bowel obstruction with oral contrast material seen extending into large bowel to the level of the rectum. There appears to be wall thickening of the cecum and at ascending colon consistent with a nonspecific colitis appear clinical correlation recommended. PERITONEUM: No gross free intraperitoneal air. No gross free oral loculated fluid collections. LYMPH NODES: Multiple enlarged retroperitoneal and peripancreatic lymph nodes. There also appears to be periportal adenopathy as well. VASCULATURE: No evidence of abdominal aortic aneurysm. BONES: No fracture or destructive lesion. OTHER FINDINGS: None. IMPRESSION: Hepatosplenomegaly. There are multiple low-attenuation foci scattered throughout the hepatic parenchyma with smaller low-attenuation foci scattered throughout the splenic parenchyma of uncertain etiology. , tapering pancreatic and retroperitoneal adenopathy. Periportal Rule out post neoplastic lesion such as a lymphoma -leukemia or metastasis. . Infectious/ inflammatory process arm less likely though not excluded. Periportal, peripancreatic and retroperitoneal adenopathy. Wall thickening of the cecum and at ascending colon consistent with a nonspecific colitis. These findings discussed with Dr. Benitez at approximately 4:15with written down and read back verification LAB FINDINGS: WBC 2.1 K 3.4 Lymp 7.0 The patient will be admitted to a MED/SURG bed for further evaluation and treatment under the sevice of Dr Gurrola; this plan of admission was discussed with the patient as well as the Family Practice Resident, Dr Gupta. Disposition - Clinical Impression Clinical Impression: Abdominal pain - Patient ED Disposition Is Patient to be Admitted: Yes Discussed With DrSusan: Kristin Marley (will admit; request lactic acid and blood cultures drawn while on ED floor) Doctor Will See Patient In The: Hospital Counseled Patient/Family Regarding: Studies Performed, Diagnosis, Need For Followup - Disposition Disposition Time: 21:00 Condition: FAIR - Pt Status Changed To: Hospital Disposition Of: Inpatient - Admit Certification Admit to Inpatient:: After my assessment, the patient will require hospitalization for at least two midnights. This is because of the severity of symptoms shown, intensity of services needed, and/or the medical risk in this patient being treated as an outpatient.
[2017-04-20 12:45] LABS: WHITE BLOOD COUNT 2.1 K/uL (4.8-10.8)
[2017-04-20 13:32] LABS: URINE BILIRUBIN NEGATIVE (NEGATIVE); URINE BLOOD NEGATIVE (NEGATIVE); URINE CLARITY SLIGHTY-CLOUDY (Clear); URINE COLOR AMBER (YELLOW); URINE GLUCOSE (UA) NEG (Normal); URINE LEUKOCYTE ESTERASE NEG Leu/uL (Negative); URINE PROTEIN 30 mg/dL (NEGATIVE); URINE UROBILINOGEN 0.2-1.0 mg/dL (0.2-1.0)
[2017-04-20] MEDS ORDERED: Iohexol 300 100 ML IJ ONE (13:53)
[2017-04-20 14:32] LABS: BANDS 2 % (0-2); LYMPHOCYTE 7 % (20-50); METAMYELOCYTE 1 % (0-0); MONOCYTE 13 % (0-10); MYELOCYTE 2 % (0-0); NEUTROPHIL 75 % (42-75); TOTAL CELLS COUNTED 100
[2017-04-20 14:33] LABS: ANISOCYTOSIS SLIGHT; LARGE PLATELETS PRESENT; PLATELET ESTIMATE SLIGHTLY DECREASED (NORMAL); POIKILOCYTOSIS SLIGHT; TEARDROP CELLS SLIGHT
--- NOTE | 2017-04-20 16:21 | CT ---
PROCEDURE: CT scan abdomen and pelvis dated 04/20/2017. HISTORY: Diarrhea with significant loss of weight COMPARISON: Comparison made with prior CT scan of the abdomen pelvis dated 01/15/2017 TECHNIQUE: Contiguous axial images of the abdomen and pelvis performed following oral and intravenous contrast. Additional 2 dimensional sagittal and coronal reformats provided. Was administered. No IV contrast given. Coronal and Sagittal reformats generated. This CT exam was performed using one or more of the following dose reduction techniques: Automated exposure control, adjustment of the mA and/or kV according to patient size, and/or use of iterative reconstruction technique. Contrast dose: 95 cc of Omnipaque 300 contrast Radiation dose: Total exam DLP = 387.94 mGy-cm. FINDINGS: LOWER THORAX: Lung bases clear. No infiltrate effusion or basilar pneumothorax. Tiny hiatal hernia. Heart size within range of normal. No significant pericardial effusion. LIVER: The liver is enlarged measuring over 20 cm in CC dimension. . There are multiple ill-defined on varying sized rounded low-attenuation lesions scattered throughout the hepatic parenchyma of uncertain etiology. . Rule out neoplastic process such as lymphoma -leukemia or metastasis. Infectious/ inflammatory process not excluded. Additionally, there is mild periportal edema nonspecific. . Small of calcification anterior aspect left lobe liver unchanged. GALLBLADDER AND BILE DUCTS: The gallbladder is physiologically distended. No evidence of intraluminal gallbladder calculi. PANCREAS: The visualized portions of the pancreas appear grossly unremarkable. No obvious pancreatic mass collection or calcification. No significant pancreatic ductal dilatation. . SPLEEN: The spleen is markedly enlarged measuring approximately 17.5 cm in the CC dimension. . Multiple very vague low-attenuation foci are also seen scattered throughout the splenic parenchyma of uncertain etiology. Changes may be related to similar findings in the hepatic parenchyma. . ADRENALS: No definitive adrenal lesions. KIDNEYS AND URETERS: Unremarkable. No stone or hydronephrosis. BLADDER: The urinary bladder is incompletely distended which in part accounts for thick-walled appearance. Muscular hypertrophy may contribute. Possibility of a cystitis not excluded. REPRODUCTIVE: Prostate gland measures approximately 3.4 cm in transverse dimension. APPENDIX: Unremarkable. BOWEL: Evaluation of the bowel is limited due to incomplete opacification. The stomach is incompletely distended which in part accounts for thick-walled appearance. Gastritis or other intrinsic/invasive wall lesion not excluded. The visualized loops of small bowel exhibit relatively normal contour and caliber. No evidence acute mechanical small bowel obstruction with oral contrast material seen extending into large bowel to the level of the rectum. There appears to be wall thickening of the cecum and at ascending colon consistent with a nonspecific colitis appear clinical correlation recommended. PERITONEUM: No gross free intraperitoneal air. No gross free oral loculated fluid collections. LYMPH NODES: Multiple enlarged retroperitoneal and peripancreatic lymph nodes. There also appears to be periportal adenopathy as well. VASCULATURE: No evidence of abdominal aortic aneurysm. BONES: No fracture or destructive lesion. OTHER FINDINGS: None. IMPRESSION: Hepatosplenomegaly. There are multiple low-attenuation foci scattered throughout the hepatic parenchyma with smaller low-attenuation foci scattered throughout the splenic parenchyma of uncertain etiology. , tapering pancreatic and retroperitoneal adenopathy. Periportal Rule out post neoplastic lesion such as a lymphoma -leukemia or metastasis. . Infectious/ inflammatory process arm less likely though not excluded. Periportal, peripancreatic and retroperitoneal adenopathy. Wall thickening of the cecum and at ascending colon consistent with a nonspecific colitis. These findings discussed with Dr. Benitez at approximately 4:15with written down and read back verification
[2017-04-20] MEDS ORDERED: Potassium Chloride 20 MEQ in Dextrose 5%/0.45% NS 1,000 ML IV SCH (19:45)
--- NOTE | 2017-04-20 19:49 | CP.PCM.HP ---
History of Present Illness - History of Present Illness History of Present Illness: "isela been having diarrhea for two weeks, but now its so bad" 37 y/o male with PMHx of HIV, low CD4, and vitilgo presents for evaluation of worsening diarrhea. He states the diarrhea started about 2 weeks ago, without any inciting or triggering event. It started off as looser than normal and no change in color or smell. He was seen on Tuesday by his PMD, Dr. Sanchez, whom was to continue to monitoring condition and recommeneded increasing PO intake of solid foods. The day after, he reports the diarrhea worsened, had turned totally watery, and was associated with cramping abdominal pain and discomfort. Last BM was this morning, was purely liquid. Stool was normal light brown color , nonfoul smelling, no mucoous or blood noticed. No change in appetite. He reports to having lost over 12 pounds since February which was unintentional. He reports being adherent with HAART therapy. Denies any sick contacts, travel, fever/chills, headaches, changes in vision, CP/SOB/Palpitations, N/V, urinary symptoms, rashes. PMD: Laura PMHx: HIV, low CD4, Vitiligo Meds: Stribild [phone], Azithromycin 1200mg Qweekly, Bactrim DS 800-160 mg QD ALL: NKDA PsurgHx: buttock implants FamilyHx: father heart disease, mother healthy Socialhx: social ETOH, denies Tobacco/drug abuse Next of Kin: MotherElvia Code Status: full code Present on Admission - Present on Admission Any Indicators Present on Admission: No History of DVT/PE: No History of Uncontrolled Diabetes: No Urinary Catheter: No Review of Systems - Constitutional Constitutional: Weight Loss, Weakness. absent: As Per HPI, Anorexia, Chills, Daytime Sleepiness, Excessive Sweating, Fatigue, Fever, Frequent Falls, Headache , Increased Appetite, Lethargy, Malaise, Night Sweats, Snoring, Sleep Apnea, Weight Gain, Other - EENT Eyes: absent: As Per HPI, Blind Spots, Blurred Vision, Change in Vision, Decreased Night Vision, Diplopia, Discharge, Dry Eye, Exophthalmos, Floaters, Irritation, Itchy Eyes, Loss of Peripheral Vision, Pain, Photophobia, Requires Corrective Lenses, Sees Flashes, Spots in Vision, Tunnel Vision, Other Visual Disturbances, Loss of Vision, Other Ears: absent: As Per HPI, Decreased Hearing, Ear Discharge, Ear Pain, Tinnitus, Abnormal Hearing, Disequilibrium, Dizziness, Other Nose/Mouth/Throat: absent: As Per HPI, Epistaxis, Nasal Congestion, Nasal Discharge, Nasal Obstruction, Nasal Trauma, Nose Pain, Post Nasal Drip, Sinus Pain, Sinus Pressure, Bleeding Gums, Change in Voice, Dental Pain, Dry Mouth, Dysphagia, Halitosis, Hoarsness, Lip Swelling, Mouth Lesions, Mouth Pain, Odynophagia, Sore Throat, Throat Swelling, Tongue Swelling, Facial Pain, Neck Pain, Neck Mass, Other - Cardiovascular Cardiovascular: absent: As Per HPI, Acrocyanosis, Chest Pain, Chest Pain at Rest , Chest Pain with Activity, Claudication, Diaphoresis, Dyspnea, Dyspnea on Exertion, Edema, Irregular Heart Rhythm, Pain Radiating to Arm/Neck/Jaw, Leg Edema, Leg Ulcers, Lightheadedness, Orthopnea, Palpitations, Paroxysmal Nocturnal Dyspnea, Pedal Edema, Radiating Pain, Rapid Heart Rate, Slow Heart Rate, Syncope, Other - Respiratory Respiratory: absent: As Per HPI, Cough, Dyspnea, Hemoptysis, Dyspnea on Exertion , Wheezing, Snoring, Stridor, Pain on Inspiration, Chest Congestion, Excessive Mucous Production, Change in Mucous Color, Pain with Coughing, Other - Gastrointestinal Gastrointestinal: Abdominal Pain, Bloating, Diarrhea, Nausea. absent: As Per HPI, Belching, Change in Bowel Habits, Change in Stool Character, Coffee Ground Emesis, Constipation, Cramping, Dyspepsia, Dysphagia, Early Satiety, Excessive Flatus, Fecal Incontinence, Heartburn, Hematemesis, Hematochezia, Loose Stools, Melena, Odynophagia, Temesmus, Vomiting, Other - Genitourinary Genitourinary: absent: As Per HPI, Change in Urinary Stream, Difficulty Urinating, Dysuria, Flank Pain, Hematuria, Pyuria, Nocturia, Urinary Incontinence, Urinary Frequency, Urinary Hesitance, Urinary Urgency, Voiding Freq/Small Amts, Freq UTI, Hx Renal/Bladder Calculi, Hx /Renal Surgery, Bladder Distension, Other - Musculoskeletal Musculoskeletal: absent: As Per HPI, Abnormal Gait, Arthralgias, Atrophy, Back Pain, Deformity, Joint Swelling, Limited Range of Motion, Loss of Height, Muscle Cramps, Muscle Weakness, Myalgias, Neck Pain, Numbness, Radiating Pain into Limb, Stiffness, Tingling, Other - Integumentary Integumentary: absent: As Per HPI, Acne, Alopecia, Bleeding Lesions, Change in Hair, Change in Nails, Change in Pigmentation, Changing Lesions, Dry Skin, Erythema, Furuncle, Hirsutism, Lesions, New Lesions, Non-Healing Lesions, Photosensitivity, Pruritus, Rash, Skin Pain, Skin Ulcer, Sores, Striae, Swelling , Unusual Bruising, Wounds, Jaundice, Other - Neurological Neurological: absent: As Per HPI, Abnormal Gait, Abnormal Hearing, Abnormal Movements, Abnormal Speech, Behavioral Changes, Burning Sensations, Confusion, Convulsions, Disequilibrium, Dizziness, Numbness, Focal Weakness, Frequent Falls , Headaches, Lack of Coordination, Loss of Vision, Memory Loss, Paresthesias, Radicular Pain, Restless Legs, Sensory Deficit, Syncope, Tingling, Tremor, Vertigo, Weakness, Other Visual Disturbances, Other Past Patient History - Infectious Disease Hx of Infectious Diseases: None - Past Social History Smoking Status: Never Smoked Alcohol: Social Drugs: Denies Home Situation {Lives}: With Family - HEMATOLOGICAL/ONCOLOGICAL Hx Human Immunodeficiency Virus (HIV): Yes (vl undetectable) - PSYCHIATRIC Hx Substance Use: No - SURGICAL HISTORY Hx Surgeries: No - ANESTHESIA Hx Anesthesia: No Meds Allergies/Adverse Reactions: Allergies Allergy/AdvReac Type Severity Reaction Status Date / Time No Known Allergies Allergy Verified 12/28/16 11:03 Physical Exam - Constitutional Appears: Non-toxic, No Acute Distress - Head Exam Head Exam: ATRAUMATIC, NORMOCEPHALIC - Eye Exam Eye Exam: EOMI, Normal appearance, PERRL. absent: Scleral icterus Pupil Exam: NORMAL ACCOMODATION, PERRL - ENT Exam ENT Exam: Mucous Membranes Moist, Normal Exam - Neck Exam Neck exam: Positive for: Full Rom. Negative for: Lymphadenopathy, Tenderness - Respiratory Exam Respiratory Exam: Clear to Auscultation Bilateral, NORMAL BREATHING PATTERN. absent: Rales, Rhonchi, Wheezes - Cardiovascular Exam Cardiovascular Exam: REGULAR RHYTHM, RRR, +S1, +S2. absent: Gallop, JVD, Rubs, Systolic Murmur - GI/Abdominal Exam GI & Abdominal Exam: Guarding (voluntary), Normal Bowel Sounds, Soft, Tenderness. absent: Distended, Firm, Hernia, Mass, Rebound, Rigid - Extremities Exam Extremities exam: Positive for: full ROM, normal capillary refill, normal inspection, pedal pulses present. Negative for: calf tenderness, pedal edema, tenderness - Back Exam Back exam: NORMAL INSPECTION. absent: CVA tenderness (L), CVA tenderness (R) - Neurological Exam Neurological exam: Alert, CN II-XII Intact, Normal Gait, Oriented x3, Reflexes Normal - Psychiatric Exam Psychiatric exam: Normal Affect, Normal Mood - Skin Skin Exam: Dry, Intact, Rash (vitiligo rash on hands), Warm Results - Vital Signs Recent Vital Signs: Last Vital Signs Temp 100.6 F H 04/20/17 11:16 Pulse 134 H 04/20/17 11:16 Resp 20 04/20/17 11:16 BP 132/83 04/20/17 11:16 Pulse Ox 97 04/20/17 19:23 - Labs Result Diagrams: 04/20/17 12:22 04/20/17 12:22 Labs: Laboratory Results - last 24 hr 04/20/17 04/20/17 04/20/17 12:22 12:22 13:17 WBC 2.1 L D RBC 3.82 L Hgb 10.5 L D Hct 31.1 L MCV 81.5 D MCH 27.5 MCHC 33.7 RDW 17.3 H Plt Count 124 L MPV 8.2 Neut % (Auto) 76.7 H Lymph % (Auto) 5.5 L [place] % (Auto) 17.6 H Eos % (Auto) 0.0 Baso % (Auto) 0.2 Neut # (Auto) 1.6 L Lymph # (Auto) 0.1 L [place] # (Auto) 0.4 Eos # (Auto) 0.0 Baso # (Auto) 0.0 Neutrophils % (Manual) 75 Band Neutrophils % 2 Lymphocytes % (Manual) 7 L Monocytes % (Manual) 13 H Metamyelocytes % 1 H Myelocytes % 2 H Platelet Estimate Slightly decreased L Large Platelets Present Poikilocytosis (manual Slight Anisocytosis (manual) Slight Tear Drop Cells Slight Sodium 137 Potassium 3.4 L Chloride 98 Carbon Dioxide 25 Anion Gap 17 BUN 9 Creatinine 0.6 L Est GFR ( Amer) > 60 Est GFR (Non-Af Amer) > 60 Random Glucose 136 H Calcium 8.7 Total Bilirubin 0.6 Direct Bilirubin 0.3 AST 39 ALT 36 Alkaline Phosphatase 160 H D Total Protein 7.2 Albumin 3.2 L D Globulin 4.0 H Albumin/Globulin Ratio 0.8 L Urine Color [place] Urine Clarity Slighty-cloudy Urine pH 6.0 Ur Specific [place] 1.024 Urine Protein 30 Urine Glucose (UA) Neg Urine Ketones Trace Urine Blood Negative Urine Nitrate Negative Urine Bilirubin Negative Urine Urobilinogen 0.2-1.0 Ur Leukocyte Esterase Neg Urine RBC (Auto) 2 Urine Microscopic WBC 3 Assessment & Plan - Assessment and Plan (Free Text) Assessment: 37 y/o male with PMHx AIDs (CD4 29) admitted for evaluation of diarrhea, unintentional weight loss, and abnormal CT scan findings. Plan: 1) Acute Diarrhea in AIDS patient -fluid hydration as ordered -regular diet -fever control -monitor vitals -lacate: 0.7 -CBC: leukopenia, anemia (10.5, was 13.1 in Jan) -CMP: hypokalemia -Stool O/P: pending -Fecal Leuks: pending -Stool Lipids: pending -Stool CMV: pending -occult blood: pending -MAC blood cultures: pending 2) Abnormal CT Scan Findings -hepatosplenogemaly, multiple low attenuation foci scattered throughout hepatic parenchyma with small foci scattered throughout splenic parenchyma -tapering pancreatic and retroperitoneal adenopathy -periportal rule out post neoplastic lesion such as lymphoma/leukemia/ metastatiis. Infect/inflamm process less likely -periportal/peripancreatic and retroperitoneal adenopathy -wall thickening of cecum and at ascending colon consist with nonspecific colitis -Triple Phase CT scan ordered for AM 3) AIDS -CD4: 29/7% as of 02/22/2017 -VL: 20 -c/w bactrim as ordered for PCP ppx -c/w azithromycin as ordered for MAC ppx -c/w HAART as ordered 4) Anemia of Unknown Etiology -Hb 10.5, was 13.1 -occult blood pending -iron studies/vitamin levels pending -f/u AM labs 5) Hypokalemia: -3.4 -D5 0.45 NS with 20meq K+ -recheck BMP in AM 6) Prophylaxis -Lovenox 40mg SC QD 7) Diet -regular 8) Code Status -full code
[2017-04-20] MEDS ORDERED: Sodium Chloride 0.9% 500 ML IV ONE (19:54)
[2017-04-20] MEDS: Potassium Ch 20mEq in D5-1/2NS 1,000 ML IV SCH (20:50)
[2017-04-21] MEDS: Potassium Ch 20mEq in D5-1/2NS 1,000 ML IV SCH (07:45)
[2017-04-21 08:33] LABS: BASO % 0.2 % (0.0-2.0); EOS % 0.1 % (0.0-4.0); HEMOGLOBIN 11.7 g/dL (12.0-18.0); LYMPH # 0.4 K/uL (1.0-4.3); LYMPH % 14.3 % (20.0-40.0); MEAN CELL VOLUME 82.7 fl (80.0-94.0); MEAN CORPUSCULAR HGB CONC 32.7 g/dL (33.0-37.0); MEAN PLATELET VOLUME 8.7 fl (7.2-11.7); MONO # 0.4 K/uL (0.0-0.8); MONO % 12.7 % (0.0-10.0); NEUT # 2.1 K/uL (1.8-7.0); NEUT % 72.7 % (50.0-75.0); NRBC % 0.1 % (0.0-0.0); RBC 4.34 Mil/uL (4.40-5.90); RED CELL DISTRIBUTION WIDTH 17.6 % (11.5-14.5); WHITE BLOOD COUNT 2.9 K/uL (4.8-10.8)
[2017-04-21 08:43] LABS: ALB/GLOB RATIO 0.8 (1.0-2.1); ALBUMIN 3.4 g/dL (3.5-5.0); ALT/SGPT 32 U/L (21-72); AST/SGOT 36 U/L (17-59); BLOOD UREA NITROGEN 9 mg/dl (9-20); CALCIUM 9.2 mg/dL (8.4-10.2); GFR AFRICAN-AMERICAN > 60; GFR NON-AFRICAN AMERICAN > 60
[2017-04-21] MEDS: Enoxaparin 40 mg Syringe SC SCH (09:30)
[2017-04-21] MEDS: Tmp-Smz 800 mg-160 mg DS Tab PO SCH (09:30)
--- NOTE | 2017-04-21 09:51 | CP.PCM.PN ---
Subjective - Date & Time of Evaluation Date of Evaluation: 04/21/17 Time of Evaluation: 09:00 - Subjective Subjective: (Pt's family unaware of HIV diagnosis.) Seen and examined at the bedside this morning. Pt reports that he is still having profuse, watery diarrhea. Abdominal pain is controlled. Denies n/v. + night sweats last night. Denies cp, sob. Objective - Vital Signs/Intake and Output Vital Signs (last 24 hours): Temp Pulse Resp BP Pulse Ox 99.0 F 115 H 19 121/70 96 04/21/17 07:37 04/21/17 07:37 04/21/17 07:37 04/21/17 07:37 04/21/17 07:37 - Medications Medications: Current Medications Acetaminophen (Tylenol 325mg Tab) 650 mg PO Q6 PRN PRN Reason: Fever >100.4 F Acetaminophen (Tylenol 325mg Tab) 650 mg PO Q6 PRN PRN Reason: Pain, Mild (1-3) Enoxaparin Sodium (Lovenox) 40 mg SC DAILY DARRION PRN Reason: Protocol Last Admin: 04/21/17 09:30 Dose: 40 mg Home Med (Elviteg/Tayler/Emtric/Tenofo Dis [Stribild Tablet]) 1 tab PO DAILY DARRION Potassium Chloride/Dextrose/Sod Cl (Potassium Chl 20 Meq In D5-1/2ns) 1,000 mls @ 100 mls/hr IV .Q10H DARRION Stop: 04/21/17 15:44 Last Admin: 04/21/17 07:45 Dose: 100 mls/hr Trimethoprim/Sulfamethoxazole (Bactrim Ds Tab) 1 tab PO DAILY DARRION PRN Reason: Protocol Last Admin: 04/21/17 09:30 Dose: 1 tab - Labs Labs: 04/21/17 08:24 04/21/17 08:24 - Constitutional Appears: Well, Non-toxic, No Acute Distress - Eye Exam Eye Exam: Normal appearance - ENT Exam ENT Exam: Mucous Membranes Moist - Respiratory Exam Respiratory Exam: Clear to Ausculation Bilateral, NORMAL BREATHING PATTERN. absent: Rales, Wheezes - Cardiovascular Exam Cardiovascular Exam: REGULAR RHYTHM, +S1, +S2. absent: Murmur - GI/Abdominal Exam GI & Abdominal Exam: Soft, Tenderness (Tenderness to palpation in epigastric region), Normal Bowel Sounds - Extremities Exam Extremities Exam: Normal Inspection, Pedal Edema - Neurological Exam Neurological Exam: Alert, Oriented x3 - Psychiatric Exam Psychiatric exam: Anxious Assessment and Plan - Assessment and Plan (Free Text) Assessment: 37 y/o male with PMHx AIDs (CD4 29) admitted for evaluation of diarrhea, unintentional weight loss, and abnormal CT scan findings. Plan for Triple Phase CT scan today. 1) Acute Diarrhea in AIDS patient -fluid hydration as ordered, pt still tachycardic -regular diet -fever control, no -monitor vitals -lacate: 0.7 -CBC: WBC 2.9, Hg 11.7 -electrolytes normal -Stool O/P: pending -Fecal Leuks: pending -Stool Lipids: pending -Stool CMV: pending (serum CMV IgG and IgM ordered) -occult blood: pending -MAC blood cultures: pending 2) Abnormal CT Scan Findings -Abdominal CT: Hepatosplenogemaly, multiple low attenuation foci scattered throughout hepatic parenchyma with small foci scattered throughout splenic parenchyma, pancreatic and retroperitoneal adenopathy. periportal LAD rule out post neoplastic lesion such as lymphoma/leukemia/metastatic. Infect/inflamm process less likely -periportal/peripancreatic and retroperitoneal adenopathy -wall thickening of cecum and at ascending colon consist with nonspecific colitis -Triple Phase CT scan today 3) AIDS -CD4: 29/7% as of 02/22/2017 -VL: 20 -c/w bactrim as ordered for PCP ppx -c/w azithromycin as ordered for MAC ppx. Last dose on 04/15. Due for next dose on 04/22. -c/w HAART as ordered- [facility]. Pt unable to bring from home. Pharmacy cannot send as pt's rx since next refill is not until 05/05. 4) Anemia of Unknown Etiology -Hb 10.5 today -occult blood - pending -iron studies/vitamin levels pending -f/u AM labs 5) Hypokalemia, resolved -3.6 today -D5 0.45 NS with 20meq K+ -Monitor BMP 6) Prophylaxis -Lovenox 40mg SC QD 7) Diet -regular 8) Code Status -full code
[2017-04-21] MEDS ORDERED: Iohexol 240 (50 ml) PO STA (12:15)
[2017-04-21] MEDS ORDERED: Iohexol 300 100 ML IJ ONE (14:36)
--- NOTE | 2017-04-21 16:44 | CT ---
PROCEDURE: CT Abdomen with and without intravenous contrast HISTORY: multiple liver lesions, rule out mets vs HCC COMPARISON: April 20, 2017. CT abdomen and pelvis TECHNIQUE: Axial images of the abdomen from lung bases to iliac crest with and without intravenous contrast enhancement. Coronal and sagittal reformats generated. Oral contrast also administered. Intravenous contrast Dose: 95 cc Omnipaque 300 Radiation dose: Total exam DLP = 02/07/1941 0.60 mGy-cm. This CT exam was performed using one or more of the following dose reduction techniques: Automated exposure control, adjustment of the mA and/or kV according to patient size, and/or use of iterative reconstruction technique. FINDINGS: LOWER THORAX: Small masses either tumor or lymphadenopathy is interposed between the diaphragm, at anterior thoracic wall and pericardium the largest measures 13 mm. Please refer to series 4, image 25 and coronal series 6048, images 17 LIVER: Unenhanced component of this study: No significant abnormalities. Arterial phase: I so attenuation that of hepatic masses identified on prior CT. Portal venous phase: Hypo attenuating masses scattered throughout both lobes of the liver. The findings therefore more likely represent metastatic disease than hepatocellular carcinoma. Portal venous system: Patent common dilated portal veins, splenic vein without evidence of thrombosis. Small varices in the left upper quadrant identified. GALLBLADDER AND BILE DUCTS: Unremarkable. PANCREAS: Unremarkable. No gross lesion or ductal dilatation. SPLEEN: Splenomegaly. Orthogonal measurements 16 x 7 x 14 cm. Tiny cystic lesions are identified in the spleen none larger than 5 mm. ADRENALS: Unremarkable. No mass. KIDNEYS AND URETERS: Unremarkable. No hydronephrosis. No solid mass. VASCULATURE: Unremarkable. No aortic aneurysm. BOWEL: Dilated small bowel without evidence of mechanical obstruction likely ileus. APPENDIX: Normal appendix. PERITONEUM: Unremarkable. No free fluid. No free air. LYMPH NODES: Pelvic or inguinal lymph nodes identified. BLADDER: Unremarkable. REPRODUCTIVE: Unremarkable. BONES: No acute fracture. OTHER FINDINGS: Dependent anasarca/ edema identified pelvis/gluteal regions. IMPRESSION: 1. Hepatomegaly, multiple hepatic masses. The contrast-enhancing characteristics and overall appearance do not support a diagnosis of hepatocellular carcinoma. 2. Splenomegaly. 3. Extensive upper abdominal or retroperitoneal adenopathy. 4. Lymphoma/leukemic infiltrates can produce the findings identified in the liver, spleen and retroperitoneum. Additional benign and/or incidental findings described above.
--- NOTE | 2017-04-21 17:18 | RAD ---
HISTORY: Sepsis COMPARISON: 04/14/2017 FINDINGS: LUNGS: No active pulmonary disease. PLEURA: No significant pleural effusion identified, no pneumothorax apparent. CARDIOVASCULAR: Normal. OSSEOUS STRUCTURES: No significant abnormalities. VISUALIZED UPPER ABDOMEN: Normal. OTHER FINDINGS: None. IMPRESSION: No active disease. No significant interval change compared to the prior examination(s).
[2017-04-21] MEDS: Sodium Chloride 0.9% 1,000 ML IV SCH ×2 (17:21→22:00)
[2017-04-21 17:32] LABS: BASO % 0.1 % (0.0-2.0); EOS % 0.1 % (0.0-4.0); HEMOGLOBIN 10.6 g/dL (12.0-18.0); LYMPH # 0.1 K/uL (1.0-4.3); LYMPH % 5.3 % (20.0-40.0); MEAN CELL VOLUME 81.4 fl (80.0-94.0); MEAN CORPUSCULAR HEMOGLOBIN 27.4 pg (27.0-31.0); MEAN CORPUSCULAR HGB CONC 33.7 g/dL (33.0-37.0); MEAN PLATELET VOLUME 8.2 fl (7.2-11.7); MONO # 0.4 K/uL (0.0-0.8); NEUT # 1.6 K/uL (1.8-7.0); NEUT % 76.5 % (50.0-75.0); NRBC % 0.1 % (0.0-0.0); RBC 3.88 Mil/uL (4.40-5.90); RED CELL DISTRIBUTION WIDTH 17.3 % (11.5-14.5); WHITE BLOOD COUNT 2.1 K/uL (4.8-10.8)
[2017-04-21 17:52] LABS: ALB/GLOB RATIO 0.8 (1.0-2.1); ALBUMIN 3.1 g/dL (3.5-5.0); ALT/SGPT 35 U/L (21-72); AST/SGOT 44 U/L (17-59); BLOOD UREA NITROGEN 6 mg/dl (9-20); CALCIUM 8.5 mg/dL (8.4-10.2); GFR AFRICAN-AMERICAN > 60; GFR NON-AFRICAN AMERICAN > 60
[2017-04-21] MEDS: metroNIDAZOLE 500mg/100ml NS 100 ML IVPB SCH (18:51)
--- NOTE | 2017-04-21 21:31 | CP.PCM.CON ---
History of Present Illness - History of Present Illness History of Present Illness: 37 year old male with a history of HIV/AIDS, presenting with diarrhea, found to have hepatosplenomegaly with lesions, pancreatic and retroperitonal lymphadenopathy. The patient reports to progressive diarrhea and diminished appetite. He notes to losing about 20 pounds due to this. He does have intermittent fevers and chills. Past medical history: HIV/AIDS Past surgical history: Gluteal implants Family history: Denies hematologic and oncologic problems Social history: Denies tobacco, alcohol, and illicit drug use. Allergies: NKA Review of systems: All remaining review of systems including HEENT, cardiovacular, respiratory, gastrointestinal, genitourinary, musculoskeletal, dermatologic, neurologic, and psychiatric are negative unless mentioned in the HPI. Past Patient History - Infectious Disease Hx of Infectious Diseases: None - Past Medical History & Family History Past Medical History?: Yes - Past Social History Smoking Status: Never Smoked Alcohol: Social Drugs: Denies Home Situation {Lives}: With Family - CARDIAC Hx Cardiac Disorders: No - PULMONARY Hx Respiratory Disorders: No - NEUROLOGICAL Hx Neurological Disorder: No - HEENT Hx Blind: No - RENAL Hx Chronic Kidney Disease: No - ENDOCRINE/METABOLIC Hx Endocrine Disorders: No - HEMATOLOGICAL/ONCOLOGICAL Hx Human Immunodeficiency Virus (HIV): Yes (vl undetectable) - INTEGUMENTARY Hx Dermatological Problems: No - MUSCULOSKELETAL/RHEUMATOLOGICAL Hx Musculoskeletal Disorders: No Hx Falls: No - GASTROINTESTINAL Hx Gastrointestinal Disorders: No - GENITOURINARY/GYNECOLOGICAL Hx Genitourinary Disorders: No - PSYCHIATRIC Hx Substance Use: No - SURGICAL HISTORY Hx Surgeries: No - ANESTHESIA Hx Anesthesia: No Meds Allergies/Adverse Reactions: Allergies Allergy/AdvReac Type Severity Reaction Status Date / Time No Known Allergies Allergy Verified 12/28/16 11:03 - Medications Medications: Current Medications Acetaminophen (Tylenol 325mg Tab) 650 mg PO Q6 PRN PRN Reason: Fever >100.4 F Last Admin: 04/21/17 15:27 Dose: 650 mg Acetaminophen (Tylenol 325mg Tab) 650 mg PO Q6 PRN PRN Reason: Pain, Mild (1-3) Azithromycin (Zithromax) 1,200 mg PO QWK DARRION PRN Reason: Protocol Enoxaparin Sodium (Lovenox) 40 mg SC DAILY DARRION PRN Reason: Protocol Last Admin: 04/21/17 09:30 Dose: 40 mg Home Med (Elviteg/Tayler/Emtric/Tenofo Dis [Stribild Tablet]) 1 tab PO DAILY DARRION Sodium Chloride (Sodium Chloride 0.9%) 1,000 mls @ 200 mls/hr IV .Q5H DARRION Stop: 04/22/17 16:57 Last Admin: 04/21/17 17:21 Dose: 200 mls/hr Vancomycin HCl 1 gm/ Sodium (Chloride) 250 mls @ 166.667 mls/hr IVPB DAILY DARRION PRN Reason: Protocol Last Admin: 04/21/17 20:07 Dose: 166.667 mls/hr Piperacillin Sod/Tazobactam (Sod 3.375 gm/ Sodium Chloride) 100 mls @ 100 mls/ hr IVPB Q6 DARRION PRN Reason: Protocol Metronidazole (Flagyl 500mg/100ml Ns) 100 mls @ 100 mls/hr IVPB Q8 DARRION PRN Reason: Protocol Last Admin: 04/21/17 18:51 Dose: 100 mls/hr Trimethoprim/Sulfamethoxazole (Bactrim Ds Tab) 1 tab PO DAILY DARRION PRN Reason: Protocol Last Admin: 04/21/17 09:30 Dose: 1 tab Physical Exam - Head Exam Head Exam: ATRAUMATIC - Eye Exam Eye Exam: Normal appearance - ENT Exam ENT Exam: Mucous Membranes Dry - Respiratory Exam Respiratory Exam: NORMAL BREATHING PATTERN - Cardiovascular Exam Cardiovascular Exam: +S1, +S2 - GI/Abdominal Exam GI & Abdominal Exam: Normal Bowel Sounds - Neurological Exam Neurological exam: Oriented x3 - Psychiatric Exam Psychiatric exam: Normal Affect, Normal Mood - Skin Skin Exam: Warm Results - Vital Signs Recent Vital Signs: Last Vital Signs Temp 98.2 F 04/21/17 17:01 Pulse 102 H 04/21/17 17:01 Resp 20 04/21/17 15:43 BP 117/72 04/21/17 15:43 Pulse Ox 96 04/21/17 15:43 - Labs Result Diagrams: 04/21/17 17:15 04/21/17 17:15 Labs: Laboratory Results - last 24 hr 04/20/17 04/21/17 04/21/17 22:00 08:24 08:24 WBC 2.9 L RBC 4.34 L Hgb 11.7 L Hct 35.9 MCV 82.7 MCH 27.0 MCHC 32.7 L RDW 17.6 H Plt Count 184 MPV 8.7 Neut % (Auto) 72.7 Lymph % (Auto) 14.3 L [place] % (Auto) 12.7 H Eos % (Auto) 0.1 Baso % (Auto) 0.2 Neut # (Auto) 2.1 Lymph # (Auto) 0.4 L [place] # (Auto) 0.4 Eos # (Auto) 0.0 Baso # (Auto) 0.0 Sodium 141 Potassium 3.6 Chloride 99 Carbon Dioxide 26 Anion Gap 20 BUN 9 Creatinine 0.6 L Est GFR ( Amer) > 60 Est GFR (Non-Af Amer) > 60 Random Glucose 132 H Lactic Acid Calcium 9.2 Magnesium Total Bilirubin 0.4 AST 36 ALT 32 Alkaline Phosphatase 157 H Lactate Dehydrogenase Total Protein 7.5 Albumin 3.4 L Globulin 4.1 H Albumin/Globulin Ratio 0.8 L Stool Occult Blood Negative 04/21/17 04/21/17 04/21/17 17:15 17:15 17:15 WBC 2.1 L RBC 3.88 L Hgb 10.6 L Hct 31.6 L MCV 81.4 MCH 27.4 MCHC 33.7 RDW 17.3 H Plt Count 143 MPV 8.2 Neut % (Auto) 76.5 H Lymph % (Auto) 5.3 L [place] % (Auto) 18.0 H Eos % (Auto) 0.1 Baso % (Auto) 0.1 Neut # (Auto) 1.6 L Lymph # (Auto) 0.1 L [place] # (Auto) 0.4 Eos # (Auto) 0.0 Baso # (Auto) 0.0 Sodium 138 Potassium 3.0 L Chloride 101 Carbon Dioxide 23 Anion Gap 17 BUN 6 L Creatinine 0.6 L Est GFR ( Amer) > 60 Est GFR (Non-Af Amer) > 60 Random Glucose 139 H Lactic Acid 0.9 Calcium 8.5 Magnesium Total Bilirubin 0.5 AST 44 ALT 35 Alkaline Phosphatase 141 H Lactate Dehydrogenase Total Protein 7.0 Albumin 3.1 L Globulin 3.9 Albumin/Globulin Ratio 0.8 L Stool Occult Blood 04/21/17 17:15 WBC RBC Hgb Hct MCV MCH MCHC RDW Plt Count MPV Neut % (Auto) Lymph % (Auto) Jack % (Auto) Eos % (Auto) Baso % (Auto) Neut # (Auto) Lymph # (Auto) Jack # (Auto) Eos # (Auto) Baso # (Auto) Sodium Potassium Chloride Carbon Dioxide Anion Gap BUN Creatinine Est GFR ( Amer) Est GFR (Non-Af Amer) Random Glucose Lactic Acid Calcium Magnesium 1.9 Total Bilirubin AST ALT Alkaline Phosphatase Lactate Dehydrogenase 415 Total Protein Albumin Globulin Albumin/Globulin Ratio Stool Occult Blood Assessment & Plan (1) Hepatosplenomegaly Assessment and Plan: with noted lesions recommend IR biopsy of most accessible lesion ? malignancy Status: Acute (2) Lymphadenopathy Assessment and Plan: ? malignancy recommend IR biopsy of most accessible lesion Status: Acute (3) Anemia Assessment and Plan: will check retic count, b12, folate, ferritin anemia of HIV Status: Acute (4) Leukopenia Assessment and Plan: likely related to HIV/AIDS Thank you for this interesting consult. Status: Acute
[2017-04-21] MEDS: Piperacillin/Tazobact 3.375 GM in Sodium Chloride 0.9% 100 ML IVPB SCH (22:05)
[2017-04-22] MEDS: metroNIDAZOLE 500mg/100ml NS 100 ML IVPB SCH ×3 (00:51→16:59)
[2017-04-22] MEDS: Sodium Chloride 0.9% 1,000 ML IV SCH ×3 (03:00→14:00)
[2017-04-22] MEDS: Piperacillin/Tazobact 3.375 GM in Sodium Chloride 0.9% 100 ML IVPB SCH ×4 (04:30→21:26)
[2017-04-22 06:51] LABS: ALB/GLOB RATIO 0.8 (1.0-2.1); ALT/SGPT 39 U/L (21-72); AST/SGOT 29 U/L (17-59); BLOOD UREA NITROGEN 7 mg/dl (9-20); CALCIUM 8.6 mg/dL (8.4-10.2); GFR AFRICAN-AMERICAN > 60; GFR NON-AFRICAN AMERICAN > 60
[2017-04-22 07:27] LABS: HEMOGLOBIN 10.8 g/dL (12.0-18.0); MEAN CELL VOLUME 82.5 fl (80.0-94.0); MEAN CORPUSCULAR HEMOGLOBIN 27.5 pg (27.0-31.0); MEAN CORPUSCULAR HGB CONC 33.3 g/dL (33.0-37.0); RBC 3.95 Mil/uL (4.40-5.90); RED CELL DISTRIBUTION WIDTH 17.3 % (11.5-14.5)
[2017-04-22 07:55] LABS: WHITE BLOOD COUNT 1.6 K/uL (4.8-10.8)
--- NOTE | 2017-04-22 08:14 | CP.PCM.CON ---
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 For the last two weeks patient has been having voluminous watery diarrhea with episodes occurring 3-4 times daily, not relieved by fasting. Onset was sudden and he does not recall any recent illness, infections or sick contacts. Has noticed intermittent fever/chills as well. Believes that he has had approximately 12-20lb weight loss in the last several months and per our EMR I can confirm at least a 10lb weight loss since January 2017. He denies any bloody stool, nausea, vomiting. Does admit that he is HIV+ with low CD4 count and expresses that nobody in his family is aware of this diagnosis. He takes Stribild as directed. On admission, he underwent CT abdomen which revealed immunerable liver/spleen lesions with abnormal LNs noted in the peripancreatic region and retroperitoneum. PMHx: See HPI PSHx: Discussed with patient and he denies prior surgeries - per H&P from medicine team, pt has buttocks implants FHx: Father - CAD Social: Denies EtOH, tobacco or illicit drug use Endo: Denies prior endoscopic evaluations 12 system ROS performed and negative except where stated Past Patient History - Infectious Disease Hx of Infectious Diseases: None - Past Medical History & Family History Past Medical History?: Yes - Past Social History Smoking Status: Never Smoked Alcohol: Social Drugs: Denies Home Situation {Lives}: With Family - CARDIAC Hx Cardiac Disorders: No - PULMONARY Hx Respiratory Disorders: No - NEUROLOGICAL Hx Neurological Disorder: No - HEENT Hx Blind: No - RENAL Hx Chronic Kidney Disease: No - ENDOCRINE/METABOLIC Hx Endocrine Disorders: No - HEMATOLOGICAL/ONCOLOGICAL Hx Human Immunodeficiency Virus (HIV): Yes (vl undetectable) - INTEGUMENTARY Hx Dermatological Problems: No - MUSCULOSKELETAL/RHEUMATOLOGICAL Hx Musculoskeletal Disorders: No Hx Falls: No - GASTROINTESTINAL Hx Gastrointestinal Disorders: No - GENITOURINARY/GYNECOLOGICAL Hx Genitourinary Disorders: No - PSYCHIATRIC Hx Substance Use: No - SURGICAL HISTORY Hx Surgeries: No - ANESTHESIA Hx Anesthesia: No Meds Allergies/Adverse Reactions: Allergies Allergy/AdvReac Type Severity Reaction Status Date / Time No Known Allergies Allergy Verified 12/28/16 11:03 - Medications Medications: Current Medications Acetaminophen (Tylenol 325mg Tab) 650 mg PO Q6 PRN PRN Reason: Fever >100.4 F Last Admin: 04/22/17 00:49 Dose: 650 mg Acetaminophen (Tylenol 325mg Tab) 650 mg PO Q6 PRN PRN Reason: Pain, Mild (1-3) Azithromycin (Zithromax) 1,200 mg PO QWK [facility] PRN Reason: Protocol Enoxaparin Sodium (Lovenox) 40 mg SC DAILY [facility] PRN Reason: Protocol Last Admin: 04/21/17 09:30 Dose: 40 mg Home Med (Elviteg/Tayler/Emtric/Tenofo Dis [Stribild Tablet]) 1 tab PO DAILY [facility] Sodium Chloride (Sodium Chloride 0.9%) 1,000 mls @ 200 mls/hr IV .Q5H [facility] Stop: 04/22/17 16:57 Last Admin: 04/22/17 03:00 Dose: Not Given Vancomycin HCl 1 gm/ Sodium (Chloride) 250 mls @ 166.667 mls/hr IVPB DAILY [facility] PRN Reason: Protocol Last Admin: 04/21/17 20:07 Dose: 166.667 mls/hr Piperacillin Sod/Tazobactam (Sod 3.375 gm/ Sodium Chloride) 100 mls @ 100 mls/ hr IVPB Q6 [facility] PRN Reason: Protocol Last Admin: 04/22/17 04:30 Dose: 100 mls/hr Metronidazole (Flagyl 500mg/100ml Ns) 100 mls @ 100 mls/hr IVPB Q8 [facility] PRN Reason: Protocol Last Admin: 04/22/17 00:51 Dose: 100 mls/hr Trimethoprim/Sulfamethoxazole (Bactrim Ds Tab) 1 tab PO DAILY [facility] PRN Reason: Protocol Last Admin: 04/21/17 09:30 Dose: 1 tab Physical Exam - Constitutional Appears: No Acute Distress, Chronically Ill - Eye Exam Eye Exam: EOMI, PERRL - ENT Exam ENT Exam: Mucous Membranes Dry - Respiratory Exam Respiratory Exam: Clear to Auscultation Bilateral. absent: Rales, Rhonchi, Wheezes - Cardiovascular Exam Cardiovascular Exam: RRR, +S1, +S2 - GI/Abdominal Exam GI & Abdominal Exam: Distended, Normal Bowel Sounds, Soft. absent: Firm, Guarding, Hernia, Organomegaly, Rigid, Tenderness - Extremities Exam Extremities exam: Positive for: normal inspection. Negative for: pedal edema - Neurological Exam Neurological exam: Alert, Oriented x3 - Psychiatric Exam Psychiatric exam: Normal Affect, Normal Mood - Skin Skin Exam: Dry, Warm Results - Vital Signs Recent Vital Signs: Last Vital Signs Temp 102.2 F H 04/22/17 07:50 Pulse 118 H 04/22/17 07:50 Resp 20 04/22/17 07:50 BP 124/74 04/22/17 07:50 Pulse Ox 96 04/22/17 07:50 - Labs Result Diagrams: 04/22/17 06:00 04/22/17 06:00 Labs: Laboratory Results - last 24 hr 04/20/17 04/21/17 04/21/17 22:00 08:24 08:24 WBC 2.9 L RBC 4.34 L Hgb 11.7 L Hct 35.9 MCV 82.7 MCH 27.0 MCHC 32.7 L RDW 17.6 H Plt Count 184 MPV 8.7 Neut % (Auto) 72.7 Lymph % (Auto) 14.3 L Woodson % (Auto) 12.7 H Eos % (Auto) 0.1 Baso % (Auto) 0.2 Neut # (Auto) 2.1 Lymph # (Auto) 0.4 L Woodson # (Auto) 0.4 Eos # (Auto) 0.0 Baso # (Auto) 0.0 Sodium 141 Potassium 3.6 Chloride 99 Carbon Dioxide 26 Anion Gap 20 BUN 9 Creatinine 0.6 L Est GFR ( Amer) > 60 Est GFR (Non-Af Amer) > 60 Random Glucose 132 H Lactic Acid Calcium 9.2 Magnesium Total Bilirubin 0.4 AST 36 ALT 32 Alkaline Phosphatase 157 H Lactate Dehydrogenase Total Protein 7.5 Albumin 3.4 L Globulin 4.1 H Albumin/Globulin Ratio 0.8 L Stool Occult Blood Negative Blood Type Antibody Screen BBK History Checked 04/21/17 04/21/17 04/21/17 17:15 17:15 17:15 WBC 2.1 L RBC 3.88 L Hgb 10.6 L Hct 31.6 L MCV 81.4 MCH 27.4 MCHC 33.7 RDW 17.3 H Plt Count 143 MPV 8.2 Neut % (Auto) 76.5 H Lymph % (Auto) 5.3 L Woodson % (Auto) 18.0 H Eos % (Auto) 0.1 Baso % (Auto) 0.1 Neut # (Auto) 1.6 L Lymph # (Auto) 0.1 L Woodson # (Auto) 0.4 Eos # (Auto) 0.0 Baso # (Auto) 0.0 Sodium 138 Potassium 3.0 L Chloride 101 Carbon Dioxide 23 Anion Gap 17 BUN 6 L Creatinine 0.6 L Est GFR ( Amer) > 60 Est GFR (Non-Af Amer) > 60 Random Glucose 139 H Lactic Acid 0.9 Calcium 8.5 Magnesium Total Bilirubin 0.5 AST 44 ALT 35 Alkaline Phosphatase 141 H Lactate Dehydrogenase Total Protein 7.0 Albumin 3.1 L Globulin 3.9 Albumin/Globulin Ratio 0.8 L Stool Occult Blood Blood Type Antibody Screen BBK History Checked 04/21/17 04/22/17 04/22/17 17:15 06:00 06:00 WBC 1.6 L* RBC 3.95 L Hgb 10.8 L Hct 32.5 L MCV 82.5 MCH 27.5 MCHC 33.3 RDW 17.3 H Plt Count 135 MPV Neut % (Auto) Lymph % (Auto) Woodson % (Auto) Eos % (Auto) Baso % (Auto) Neut # (Auto) Lymph # (Auto) Woodson # (Auto) Eos # (Auto) Baso # (Auto) Sodium 140 Potassium 3.3 L Chloride 102 Carbon Dioxide 24 Anion Gap 17 BUN 7 L Creatinine 0.7 L Est GFR ( Amer) > 60 Est GFR (Non-Af Amer) > 60 Random Glucose 104 Lactic Acid Calcium 8.6 Magnesium 1.9 Total Bilirubin 0.5 AST 29 ALT 39 Alkaline Phosphatase 146 H Lactate Dehydrogenase 415 Total Protein 6.9 Albumin 3.0 L Globulin 3.9 Albumin/Globulin Ratio 0.8 L Stool Occult Blood Blood Type Antibody Screen BBK History Checked 04/22/17 06:00 WBC RBC Hgb Hct MCV MCH MCHC RDW Plt Count MPV Neut % (Auto) Lymph % (Auto) Woodson % (Auto) Eos % (Auto) Baso % (Auto) Neut # (Auto) Lymph # (Auto) Woodson # (Auto) Eos # (Auto) Baso # (Auto) Sodium Potassium Chloride Carbon Dioxide Anion Gap BUN Creatinine Est GFR ( Amer) Est GFR (Non-Af Amer) Random Glucose Lactic Acid Calcium Magnesium Total Bilirubin AST ALT Alkaline Phosphatase Lactate Dehydrogenase Total Protein Albumin Globulin Albumin/Globulin Ratio Stool Occult Blood Blood Type O POSITIVE Antibody Screen Negative BBK History Checked No verified bt Assessment & Plan - Assessment and Plan (Free Text) Assessment: Patient is a 37yo male with PMHx significant for 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, vitiligo who presented to the hospital with complaint of diarrhea and weight loss -Innumerable liver and splenic lesions with abnormal lymphadenopathy suspicious for malignancy -Unintentional weight loss -Subacute diarrhea -HIV with CD4 < 50 Plan: -Given immunocompromised status with CD4<50 per pt account recommend checking: Isospora/Cyclospora/Microspora/Cryptospora/Giardia/C diff to rule out opportunistic infection -On ppx currently with Bactrim/Azithromycin -Admits to adherence with ART therapy - not currently on therapy as medication is unavailable presently -Patient would benefit from ID consultation -CT reviewed - recommend discussion with IR for biopsy of any lesions which may assist in diagnosis - R/O lymphoma -Appreciate oncology input -If symptoms do not resolve, ultimately may benefit from endoscopic evaluation with biopsies - R/O HSV/CMV or other underlying process - Date & Time Date: 04/22/17 Time: 07:00 <Azam Robison - Last Filed: 04/22/17 14:49> Meds - Medications Medications: Current Medications Acetaminophen (Tylenol 325mg Tab) 650 mg PO Q6 PRN PRN Reason: Fever >100.4 F Last Admin: 04/22/17 08:18 Dose: 650 mg Acetaminophen (Tylenol 325mg Tab) 650 mg PO Q6 PRN PRN Reason: Pain, Mild (1-3) Azithromycin (Zithromax) 1,200 mg PO QWK [facility]ION PRN Reason: Protocol Enoxaparin Sodium (Lovenox) 40 mg SC DAILY [facility] PRN Reason: Protocol Last Admin: 04/22/17 08:19 Dose: 40 mg Home Med (Elviteg/Tayler/Emtric/Tenofo Dis [Stribild Tablet]) 1 tab PO DAILY [facility] Sodium Chloride (Sodium Chloride 0.9%) 1,000 mls @ 200 mls/hr IV .Q5H [facility] Stop: 04/22/17 16:57 Last Admin: 04/22/17 10:36 Dose: Not Given Vancomycin HCl 1 gm/ Sodium (Chloride) 250 mls @ 166.667 mls/hr IVPB DAILY [facility] PRN Reason: Protocol Last Admin: 04/22/17 09:52 Dose: 166.667 mls/hr Piperacillin Sod/Tazobactam (Sod 3.375 gm/ Sodium Chloride) 100 mls @ 100 mls/ hr IVPB Q6 [facility] PRN Reason: Protocol Last Admin: 04/22/17 09:52 Dose: 100 mls/hr Metronidazole (Flagyl 500mg/100ml Ns) 100 mls @ 100 mls/hr IVPB Q8 [facility] PRN Reason: Protocol Last Admin: 04/22/17 08:18 Dose: 100 mls/hr Trimethoprim/Sulfamethoxazole (Bactrim Ds Tab) 1 tab PO DAILY [facility] PRN Reason: Protocol Last Admin: 04/22/17 08:19 Dose: 1 tab Results - Vital Signs Recent Vital Signs: Last Vital Signs Temp 98.0 F 04/22/17 09:18 Pulse 118 H 04/22/17 07:50 Resp 20 04/22/17 07:50 BP 124/74 04/22/17 07:50 Pulse Ox 96 04/22/17 07:50 - Labs Result Diagrams: 04/22/17 06:00 04/22/17 06:00 Labs: Laboratory Results - last 24 hr 04/20/17 04/21/17 04/21/17 22:00 17:15 17:15 WBC 2.1 L RBC 3.88 L Hgb 10.6 L Hct 31.6 L MCV 81.4 MCH 27.4 MCHC 33.7 RDW 17.3 H Plt Count 143 MPV 8.2 Neut % (Auto) 76.5 H Lymph % (Auto) 5.3 L Woodson % (Auto) 18.0 H Eos % (Auto) 0.1 Baso % (Auto) 0.1 Neut # (Auto) 1.6 L Lymph # (Auto) 0.1 L Woodson # (Auto) 0.4 Eos # (Auto) 0.0 Baso # (Auto) 0.0 Sodium Potassium Chloride Carbon Dioxide Anion Gap BUN Creatinine Est GFR ( Amer) Est GFR (Non-Af Amer) Random Glucose Lactic Acid 0.9 Calcium Magnesium Total Bilirubin AST ALT Alkaline Phosphatase Lactate Dehydrogenase Total Protein Albumin Globulin Albumin/Globulin Ratio Stool Occult Blood Negative Blood Type Blood Type Confirm Antibody Screen BBK History Checked 04/21/17 04/21/17 04/22/17 17:15 17:15 06:00 WBC 1.6 L* RBC 3.95 L Hgb 10.8 L Hct 32.5 L MCV 82.5 MCH 27.5 MCHC 33.3 RDW 17.3 H Plt Count 135 MPV Neut % (Auto) Lymph % (Auto) Woodson % (Auto) Eos % (Auto) Baso % (Auto) Neut # (Auto) Lymph # (Auto) Woodson # (Auto) Eos # (Auto) Baso # (Auto) Sodium 138 Potassium 3.0 L Chloride 101 Carbon Dioxide 23 Anion Gap 17 BUN 6 L Creatinine 0.6 L Est GFR ( Amer) > 60 Est GFR (Non-Af Amer) > 60 Random Glucose 139 H Lactic Acid Calcium 8.5 Magnesium 1.9 Total Bilirubin 0.5 AST 44 ALT 35 Alkaline Phosphatase 141 H Lactate Dehydrogenase 415 Total Protein 7.0 Albumin 3.1 L Globulin 3.9 Albumin/Globulin Ratio 0.8 L Stool Occult Blood Blood Type Blood Type Confirm Antibody Screen BBK History Checked 04/22/17 04/22/17 04/22/17 06:00 06:00 07:30 WBC RBC Hgb Hct MCV MCH MCHC RDW Plt Count MPV Neut % (Auto) Lymph % (Auto) Woodson % (Auto) Eos % (Auto) Baso % (Auto) Neut # (Auto) Lymph # (Auto) Woodson # (Auto) Eos # (Auto) Baso # (Auto) Sodium 140 Potassium 3.3 L Chloride 102 Carbon Dioxide 24 Anion Gap 17 BUN 7 L Creatinine 0.7 L Est GFR ( Amer) > 60 Est GFR (Non-Af Amer) > 60 Random Glucose 104 Lactic Acid Calcium 8.6 Magnesium Total Bilirubin 0.5 AST 29 ALT 39 Alkaline Phosphatase 146 H Lactate Dehydrogenase Total Protein 6.9 Albumin 3.0 L Globulin 3.9 Albumin/Globulin Ratio 0.8 L Stool Occult Blood Blood Type O POSITIVE Blood Type Confirm O POSITIVE Antibody Screen Negative BBK History Checked No verified bt Assessment & Plan - Assessment and Plan (Free Text) Plan: Patient seen and examined. Agree with above.
[2017-04-22] MEDS: Enoxaparin 40 mg Syringe SC SCH ×2 (08:19→09:00)
[2017-04-22] MEDS: Tmp-Smz 800 mg-160 mg DS Tab PO SCH (08:19)
--- NOTE | 2017-04-22 13:11 | CP.PCM.CON ---
History of Present Illness - History of Present Illness History of Present Illness: Infectious Disease Consultation Note- asked to see this patient at the request of family practice team for HIV, + fever, diarrhea. HPI- Klaus is a 37 year old male with hIV who follows up with at the [facility] in [place] who states for the past 2 weeks he has been ghaving watery diarrhea that begun after he had portuguese food one night. he denies any blood or any mucus in stool. denies any nausea or vomiting and denies any abd. pain. However he also states for past week 3 days he has started to have intermittent fevers . he denies any cough or sob or any other symptoms. denies any CRUZ. he states he ahs been maintained on stribili which he takes daily for his HIV and states his VL is undetectable but his CD4 has been low <50 as per pt. He also states he has lost more than 10 pounds in the past 2 weeks. On admission, he underwent CT abdomen which revealed immunerable liver/spleen lesions with abnormal LNs noted in the peripancreatic region and retroperitoneum. PSHx: Discussed with patient and he denies prior surgeries - per H&P from medicine team, pt has buttocks implants FHx: Father - CAD Social: Denies EtOH, tobacco or illicit drug use Endo: Denies prior endoscopic evaluations Allergy- denies any allergy to medications Review of Systems - Review of Systems Review of Systems: ROS- + fever on and off for past 3 days denies any CRUZ, denies any cough or sob denies any chest pain, denies any abd. pain , denies any nausea or vomiting. states has good appetite but has been having watery diarrhea for 2 weeks and weight loss 10 pounds denies any dysurea denies any recent travel denies any sick contacts Past Patient History - Infectious Disease Hx of Infectious Diseases: None - Past Medical History & Family History Past Medical History?: Yes - Past Social History Smoking Status: Never Smoked Alcohol: Social Drugs: Denies Home Situation {Lives}: With Family - CARDIAC Hx Cardiac Disorders: No - PULMONARY Hx Respiratory Disorders: No - NEUROLOGICAL Hx Neurological Disorder: No - HEENT Hx Blind: No - RENAL Hx Chronic Kidney Disease: No - ENDOCRINE/METABOLIC Hx Endocrine Disorders: No - HEMATOLOGICAL/ONCOLOGICAL Hx AIDS: Yes Hx Human Immunodeficiency Virus (HIV): Yes (vl undetectable) - INTEGUMENTARY Hx Dermatological Problems: No - MUSCULOSKELETAL/RHEUMATOLOGICAL Hx Musculoskeletal Disorders: No Hx Falls: No - GASTROINTESTINAL Hx Gastrointestinal Disorders: No - GENITOURINARY/GYNECOLOGICAL Hx Genitourinary Disorders: No - PSYCHIATRIC Hx Substance Use: No - SURGICAL HISTORY Hx Surgeries: No - ANESTHESIA Hx Anesthesia: No Meds Allergies/Adverse Reactions: Allergies Allergy/AdvReac Type Severity Reaction Status Date / Time No Known Allergies Allergy Verified 12/28/16 11:03 - Medications Medications: Current Medications Acetaminophen (Tylenol 325mg Tab) 650 mg PO Q6 PRN PRN Reason: Fever >100.4 F Last Admin: 04/22/17 08:18 Dose: 650 mg Acetaminophen (Tylenol 325mg Tab) 650 mg PO Q6 PRN PRN Reason: Pain, Mild (1-3) Azithromycin (Zithromax) 1,200 mg PO QWK DARRION PRN Reason: Protocol Enoxaparin Sodium (Lovenox) 40 mg SC DAILY DARRION PRN Reason: Protocol Last Admin: 04/22/17 08:19 Dose: 40 mg Home Med (Elviteg/Tayler/Emtric/Tenofo Dis [Stribild Tablet]) 1 tab PO DAILY DARRION Sodium Chloride (Sodium Chloride 0.9%) 1,000 mls @ 200 mls/hr IV .Q5H [facility] Stop: 04/22/17 16:57 Last Admin: 04/22/17 10:36 Dose: Not Given Vancomycin HCl 1 gm/ Sodium (Chloride) 250 mls @ 166.667 mls/hr IVPB DAILY DARRION PRN Reason: Protocol Last Admin: 04/22/17 09:52 Dose: 166.667 mls/hr Piperacillin Sod/Tazobactam (Sod 3.375 gm/ Sodium Chloride) 100 mls @ 100 mls/ hr IVPB Q6 DARRION PRN Reason: Protocol Last Admin: 04/22/17 09:52 Dose: 100 mls/hr Metronidazole (Flagyl 500mg/100ml Ns) 100 mls @ 100 mls/hr IVPB Q8 DARRION PRN Reason: Protocol Last Admin: 04/22/17 08:18 Dose: 100 mls/hr Trimethoprim/Sulfamethoxazole (Bactrim Ds Tab) 1 tab PO DAILY DARRION PRN Reason: Protocol Last Admin: 04/22/17 08:19 Dose: 1 tab Physical Exam - Constitutional Appears: No Acute Distress - Head Exam Head Exam: ATRAUMATIC - Eye Exam Eye Exam: EOMI, PERRL - ENT Exam ENT Exam: Normal Oropharynx - Neck Exam Neck exam: Positive for: Full Rom - Respiratory Exam Respiratory Exam: Clear to Auscultation Bilateral, NORMAL BREATHING PATTERN - Cardiovascular Exam Cardiovascular Exam: RRR, +S1, +S2 - GI/Abdominal Exam Additional comments: somewhat distended soft No tenderness to palpation + bowel sounds No guarding No rebound - Extremities Exam Extremities exam: Positive for: normal inspection - Neurological Exam Neurological exam: Alert, Oriented x3 Results - Vital Signs Recent Vital Signs: Last Vital Signs Temp 98.0 F 04/22/17 09:18 Pulse 118 H 04/22/17 07:50 Resp 20 04/22/17 07:50 BP 124/74 04/22/17 07:50 Pulse Ox 96 04/22/17 07:50 - Labs Result Diagrams: 04/22/17 06:00 04/22/17 06:00 Labs: Laboratory Results - last 24 hr 04/20/17 04/21/17 04/21/17 22:00 17:15 17:15 WBC 2.1 L RBC 3.88 L Hgb 10.6 L Hct 31.6 L MCV 81.4 MCH 27.4 MCHC 33.7 RDW 17.3 H Plt Count 143 MPV 8.2 Neut % (Auto) 76.5 H Lymph % (Auto) 5.3 L [place] % (Auto) 18.0 H Eos % (Auto) 0.1 Baso % (Auto) 0.1 Neut # (Auto) 1.6 L Lymph # (Auto) 0.1 L [place] # (Auto) 0.4 Eos # (Auto) 0.0 Baso # (Auto) 0.0 Sodium Potassium Chloride Carbon Dioxide Anion Gap BUN Creatinine Est GFR ( Amer) Est GFR (Non-Af Amer) Random Glucose Lactic Acid 0.9 Calcium Magnesium Total Bilirubin AST ALT Alkaline Phosphatase Lactate Dehydrogenase Total Protein Albumin Globulin Albumin/Globulin Ratio Stool Occult Blood Negative Blood Type Blood Type Confirm Antibody Screen BBK History Checked 04/21/17 04/21/17 04/22/17 17:15 17:15 06:00 WBC 1.6 L* RBC 3.95 L Hgb 10.8 L Hct 32.5 L MCV 82.5 MCH 27.5 MCHC 33.3 RDW 17.3 H Plt Count 135 MPV Neut % (Auto) Lymph % (Auto) [place] % (Auto) Eos % (Auto) Baso % (Auto) Neut # (Auto) Lymph # (Auto) [place] # (Auto) Eos # (Auto) Baso # (Auto) Sodium 138 Potassium 3.0 L Chloride 101 Carbon Dioxide 23 Anion Gap 17 BUN 6 L Creatinine 0.6 L Est GFR ( Amer) > 60 Est GFR (Non-Af Amer) > 60 Random Glucose 139 H Lactic Acid Calcium 8.5 Magnesium 1.9 Total Bilirubin 0.5 AST 44 ALT 35 Alkaline Phosphatase 141 H Lactate Dehydrogenase 415 Total Protein 7.0 Albumin 3.1 L Globulin 3.9 Albumin/Globulin Ratio 0.8 L Stool Occult Blood Blood Type Blood Type Confirm Antibody Screen BBK History Checked 04/22/17 04/22/17 04/22/17 06:00 06:00 07:30 WBC RBC Hgb Hct MCV MCH MCHC RDW Plt Count MPV Neut % (Auto) Lymph % (Auto) [place] % (Auto) Eos % (Auto) Baso % (Auto) Neut # (Auto) Lymph # (Auto) [place] # (Auto) Eos # (Auto) Baso # (Auto) Sodium 140 Potassium 3.3 L Chloride 102 Carbon Dioxide 24 Anion Gap 17 BUN 7 L Creatinine 0.7 L Est GFR ( Amer) > 60 Est GFR (Non-Af Amer) > 60 Random Glucose 104 Lactic Acid Calcium 8.6 Magnesium Total Bilirubin 0.5 AST 29 ALT 39 Alkaline Phosphatase 146 H Lactate Dehydrogenase Total Protein 6.9 Albumin 3.0 L Globulin 3.9 Albumin/Globulin Ratio 0.8 L Stool Occult Blood Blood Type O POSITIVE Blood Type Confirm O POSITIVE Antibody Screen Negative BBK History Checked No verified bt Laboratory Results - last 72 hr 04/20/17 04/20/17 04/20/17 12:22 12:22 13:17 WBC 2.1 L D RBC 3.82 L Hgb 10.5 L D Hct 31.1 L MCV 81.5 D MCH 27.5 MCHC 33.7 RDW 17.3 H Plt Count 124 L MPV 8.2 Neut % (Auto) 76.7 H Lymph % (Auto) 5.5 L [place] % (Auto) 17.6 H Eos % (Auto) 0.0 Baso % (Auto) 0.2 Neut # (Auto) 1.6 L Lymph # (Auto) 0.1 L [place] # (Auto) 0.4 Eos # (Auto) 0.0 Baso # (Auto) 0.0 Neutrophils % (Manual) 75 Band Neutrophils % 2 Lymphocytes % (Manual) 7 L Monocytes % (Manual) 13 H Metamyelocytes % 1 H Myelocytes % 2 H Platelet Estimate Slightly decreased L Large Platelets Present Poikilocytosis (manual Slight Anisocytosis (manual) Slight Tear Drop Cells Slight Sodium 137 Potassium 3.4 L Chloride 98 Carbon Dioxide 25 Anion Gap 17 BUN 9 Creatinine 0.6 L Est GFR ( Amer) > 60 Est GFR (Non-Af Amer) > 60 Random Glucose 136 H Lactic Acid Calcium 8.7 Magnesium Total Bilirubin 0.6 Direct Bilirubin 0.3 AST 39 ALT 36 Alkaline Phosphatase 160 H D Lactate Dehydrogenase Total Protein 7.2 Albumin 3.2 L D Globulin 4.0 H Albumin/Globulin Ratio 0.8 L Urine Color [place] Urine Clarity Slighty-cloudy Urine pH 6.0 Ur Specific [place] 1.024 Urine Protein 30 Urine Glucose (UA) Neg Urine Ketones Trace Urine Blood Negative Urine Nitrate Negative Urine Bilirubin Negative Urine Urobilinogen 0.2-1.0 Ur Leukocyte Esterase Neg Urine RBC (Auto) 2 Urine Microscopic WBC 3 Stool Occult Blood Blood Type Blood Type Confirm Antibody Screen BBK History Checked 04/20/17 04/20/17 04/21/17 19:58 22:00 08:24 WBC 2.9 L RBC 4.34 L Hgb 11.7 L Hct 35.9 MCV 82.7 MCH 27.0 MCHC 32.7 L RDW 17.6 H Plt Count 184 MPV 8.7 Neut % (Auto) 72.7 Lymph % (Auto) 14.3 L [place] % (Auto) 12.7 H Eos % (Auto) 0.1 Baso % (Auto) 0.2 Neut # (Auto) 2.1 Lymph # (Auto) 0.4 L [place] # (Auto) 0.4 Eos # (Auto) 0.0 Baso # (Auto) 0.0 Neutrophils % (Manual) Band Neutrophils % Lymphocytes % (Manual) Monocytes % (Manual) Metamyelocytes % Myelocytes % Platelet Estimate Large Platelets Poikilocytosis (manual Anisocytosis (manual) Tear Drop Cells Sodium Potassium Chloride Carbon Dioxide Anion Gap BUN Creatinine Est GFR ( Amer) Est GFR (Non-Af Amer) Random Glucose Lactic Acid 0.7 Calcium Magnesium Total Bilirubin Direct Bilirubin AST ALT Alkaline Phosphatase Lactate Dehydrogenase Total Protein Albumin Globulin Albumin/Globulin Ratio Urine Color Urine Clarity Urine pH Ur Specific [place] Urine Protein Urine Glucose (UA) Urine Ketones Urine Blood Urine Nitrate Urine Bilirubin Urine Urobilinogen Ur Leukocyte Esterase Urine RBC (Auto) Urine Microscopic WBC Stool Occult Blood Negative Blood Type Blood Type Confirm Antibody Screen BBK History Checked 04/21/17 04/21/17 04/21/17 08:24 17:15 17:15 WBC 2.1 L RBC 3.88 L Hgb 10.6 L Hct 31.6 L MCV 81.4 MCH 27.4 MCHC 33.7 RDW 17.3 H Plt Count 143 MPV 8.2 Neut % (Auto) 76.5 H Lymph % (Auto) 5.3 L [place] % (Auto) 18.0 H Eos % (Auto) 0.1 Baso % (Auto) 0.1 Neut # (Auto) 1.6 L Lymph # (Auto) 0.1 L [place] # (Auto) 0.4 Eos # (Auto) 0.0 Baso # (Auto) 0.0 Neutrophils % (Manual) Band Neutrophils % Lymphocytes % (Manual) Monocytes % (Manual) Metamyelocytes % Myelocytes % Platelet Estimate Large Platelets Poikilocytosis (manual Anisocytosis (manual) Tear Drop Cells Sodium 141 Potassium 3.6 Chloride 99 Carbon Dioxide 26 Anion Gap 20 BUN 9 Creatinine 0.6 L Est GFR ( Amer) > 60 Est GFR (Non-Af Amer) > 60 Random Glucose 132 H Lactic Acid 0.9 Calcium 9.2 Magnesium Total Bilirubin 0.4 Direct Bilirubin AST 36 ALT 32 Alkaline Phosphatase 157 H Lactate Dehydrogenase Total Protein 7.5 Albumin 3.4 L Globulin 4.1 H Albumin/Globulin Ratio 0.8 L Urine Color Urine Clarity Urine pH Ur Specific [place] Urine Protein Urine Glucose (UA) Urine Ketones Urine Blood Urine Nitrate Urine Bilirubin Urine Urobilinogen Ur Leukocyte Esterase Urine RBC (Auto) Urine Microscopic WBC Stool Occult Blood Blood Type Blood Type Confirm Antibody Screen BBK History Checked 04/21/17 04/21/17 04/22/17 17:15 17:15 06:00 WBC 1.6 L* RBC 3.95 L Hgb 10.8 L Hct 32.5 L MCV 82.5 MCH 27.5 MCHC 33.3 RDW 17.3 H Plt Count 135 MPV Neut % (Auto) Lymph % (Auto) [place] % (Auto) Eos % (Auto) Baso % (Auto) Neut # (Auto) Lymph # (Auto) [place] # (Auto) Eos # (Auto) Baso # (Auto) Neutrophils % (Manual) Band Neutrophils % Lymphocytes % (Manual) Monocytes % (Manual) Metamyelocytes % Myelocytes % Platelet Estimate Large Platelets Poikilocytosis (manual Anisocytosis (manual) Tear Drop Cells Sodium 138 Potassium 3.0 L Chloride 101 Carbon Dioxide 23 Anion Gap 17 BUN 6 L Creatinine 0.6 L Est GFR ( Amer) > 60 Est GFR (Non-Af Amer) > 60 Random Glucose 139 H Lactic Acid Calcium 8.5 Magnesium 1.9 Total Bilirubin 0.5 Direct Bilirubin AST 44 ALT 35 Alkaline Phosphatase 141 H Lactate Dehydrogenase 415 Total Protein 7.0 Albumin 3.1 L Globulin 3.9 Albumin/Globulin Ratio 0.8 L Urine Color Urine Clarity Urine pH Ur Specific [place] Urine Protein Urine Glucose (UA) Urine Ketones Urine Blood Urine Nitrate Urine Bilirubin Urine Urobilinogen Ur Leukocyte Esterase Urine RBC (Auto) Urine Microscopic WBC Stool Occult Blood Blood Type Blood Type Confirm Antibody Screen BBK History Checked 04/22/17 04/22/17 04/22/17 06:00 06:00 07:30 WBC RBC Hgb Hct MCV MCH MCHC RDW Plt Count MPV Neut % (Auto) Lymph % (Auto) [place] % (Auto) Eos % (Auto) Baso % (Auto) Neut # (Auto) Lymph # (Auto) [place] # (Auto) Eos # (Auto) Baso # (Auto) Neutrophils % (Manual) Band Neutrophils % Lymphocytes % (Manual) Monocytes % (Manual) Metamyelocytes % Myelocytes % Platelet Estimate Large Platelets Poikilocytosis (manual Anisocytosis (manual) Tear Drop Cells Sodium 140 Potassium 3.3 L Chloride 102 Carbon Dioxide 24 Anion Gap 17 BUN 7 L Creatinine 0.7 L Est GFR ( Amer) > 60 Est GFR (Non-Af Amer) > 60 Random Glucose 104 Lactic Acid Calcium 8.6 Magnesium Total Bilirubin 0.5 Direct Bilirubin AST 29 ALT 39 Alkaline Phosphatase 146 H Lactate Dehydrogenase Total Protein 6.9 Albumin 3.0 L Globulin 3.9 Albumin/Globulin Ratio 0.8 L Urine Color Urine Clarity Urine pH Ur Specific [place] Urine Protein Urine Glucose (UA) Urine Ketones Urine Blood Urine Nitrate Urine Bilirubin Urine Urobilinogen Ur Leukocyte Esterase Urine RBC (Auto) Urine Microscopic WBC Stool Occult Blood Blood Type O POSITIVE Blood Type Confirm O POSITIVE Antibody Screen Negative BBK History Checked No verified bt Microbiology 04/21/17 11:04 Stool Ova and Parasite Concentrate Exam - Final 04/21/17 10:15 Other: Please Indicate Mycobacterial Culture - Preliminary 04/20/17 18:15 Blood Blood Culture - Preliminary NO GROWTH AFTER 24 HOURS Assessment & Plan (1) Hepatosplenomegaly Status: Acute (2) Leukopenia Status: Acute (3) HIV disease Status: Acute (4) Diarrhea Status: Acute (5) Weight loss Status: Acute - Assessment and Plan (Free Text) Assessment: A/P- 37 y/o male with HIV/AIDS admitted with diarrhea and fever. the etiology of the fever unknown at this time. certainly in light of the fact that pt is immunecompromised with CD4 < 50 ( as per pt report) and diarrhea opportunistic GI pathogens such as cyclospora, isospora, micrsporidium,cryptosporidium , giardia would need to be ruled out. also r/o mycobaterial involvement sucha s disseminated MAC in light of the liver lesions and weight loss and fever. also must rule out other opportunistic infections such as CMV in light of low cd4 and immunesuppression. HIV associated lymphomas is also another possibility in light of the ct findings of retroperitoneal lymphadenopathy and weight loss and fevers. Plan: check blood cx x 2. check blood AFB cx. check stool AFB also. check UA and urine cx. check stool culture. check stool ova and parasite. check for Isospora/Cyclospora/Microspora/Cryptospora/Giardia/C diff to rule out opportunistic infection check cmv IGG, toxo IGG, histoplasma serology. check VL and CD4. continue with zithromax 1200 mg once a week for MAC prophylaxis. in light of leukopenia switch patient to [facility] for PCP prophylaxis. continue with his home stribild, [address] reviewed - recommend IR biopsy of any lesions which may assist in diagnosis - R/O lymphoma may need endoscopic evaluation with biopsies to R/O HSV/CMV . advise to d/c vancomycin. advise to continue with empiric IV zosyn that was initiated by the primary team along with the flagyl pending further results. all above d/w patient at length and he verbalizes full understanding of all above. Thank you for allowing me to take part in the care of this patient. will f/u while inpatient.
--- NOTE | 2017-04-22 15:07 | CP.PCM.PN ---
Subjective - Date & Time of Evaluation Date of Evaluation: 04/22/17 Time of Evaluation: 09:00 - Subjective Subjective: Multiple fevers spiked overnight. Pt seen and examined at bedside. Reports diarrhea is still rpesents. Has watery BM after every meal 3-5 x yesterday. Had night sweats last night. Denies cp, sob, cough, abdominal pain, n/v. Later in the afternoon, pt reported that his diarrhea had improved slightly. Objective - Vital Signs/Intake and Output Vital Signs (last 24 hours): Temp Pulse Resp BP Pulse Ox 98.0 F 118 H 20 124/74 96 04/22/17 09:18 04/22/17 07:50 04/22/17 07:50 04/22/17 07:50 04/22/17 07:50 - Medications Medications: Current Medications Acetaminophen (Tylenol 325mg Tab) 650 mg PO Q6 PRN PRN Reason: Fever >100.4 F Last Admin: 04/22/17 08:18 Dose: 650 mg Acetaminophen (Tylenol 325mg Tab) 650 mg PO Q6 PRN PRN Reason: Pain, Mild (1-3) Azithromycin (Zithromax) 1,200 mg PO QWK DARRION PRN Reason: Protocol Enoxaparin Sodium (Lovenox) 40 mg SC DAILY DARRION PRN Reason: Protocol Last Admin: 04/22/17 08:19 Dose: 40 mg Home Med (Elviteg/Tayler/Emtric/Tenofo Dis [Stribild Tablet]) 1 tab PO DAILY DARRION Sodium Chloride (Sodium Chloride 0.9%) 1,000 mls @ 200 mls/hr IV .Q5H COUNTS INCLUDE 234 BEDS AT THE [facility] Stop: 04/22/17 16:57 Last Admin: 04/22/17 10:36 Dose: Not Given Vancomycin HCl 1 gm/ Sodium (Chloride) 250 mls @ 166.667 mls/hr IVPB DAILY DARRION PRN Reason: Protocol Last Admin: 04/22/17 09:52 Dose: 166.667 mls/hr Piperacillin Sod/Tazobactam (Sod 3.375 gm/ Sodium Chloride) 100 mls @ 100 mls/ hr IVPB Q6 DARRION PRN Reason: Protocol Last Admin: 04/22/17 09:52 Dose: 100 mls/hr Metronidazole (Flagyl 500mg/100ml Ns) 100 mls @ 100 mls/hr IVPB Q8 DARRION PRN Reason: Protocol Last Admin: 04/22/17 08:18 Dose: 100 mls/hr Trimethoprim/Sulfamethoxazole (Bactrim Ds Tab) 1 tab PO DAILY DARRION PRN Reason: Protocol Last Admin: 04/22/17 08:19 Dose: 1 tab - Labs Labs: 04/22/17 06:00 04/22/17 06:00 - Constitutional Appears: Well, No Acute Distress - Head Exam Head Exam: NORMAL INSPECTION - Eye Exam Eye Exam: Normal appearance - ENT Exam ENT Exam: Mucous Membranes Moist - Respiratory Exam Respiratory Exam: Clear to Ausculation Bilateral. absent: Rales, Wheezes - Cardiovascular Exam Cardiovascular Exam: REGULAR RHYTHM, +S1, +S2 - GI/Abdominal Exam GI & Abdominal Exam: Soft, Tenderness (Mildly ), Normal Bowel Sounds. absent: Firm, Guarding - Extremities Exam Extremities Exam: absent: Pedal Edema - Neurological Exam Neurological Exam: Alert, Awake, Oriented x3 - Psychiatric Exam Psychiatric exam: Normal Mood - Skin Skin Exam: Normal Color Assessment and Plan - Assessment and Plan (Free Text) Assessment: Assessment: 37 y/o male with PMHx AIDs (CD4 29) admitted for evaluation of diarrhea, unintentional weight loss, and abnormal CT scan findings. 1) Acute Diarrhea in AIDS patient -fluid hydration as ordered, pt still tachycardic. Spiking fivers overnight and in the morning, Tmax 102.6. Repeat PanCx taken today. -regular diet -fever control, no -monitor vitals -lacate: 0.7 -CBC: WBC 2.9, Hg 11.7 -electrolytes normal -Stool O/P: pending -Fecal Leuks: pending -Stool Lipids: pending -Stool CMV: pending (serum CMV IgG and IgM ordered) -occult blood: pending -MAC blood cultures: pending -ID Consulted -GI Consulted 2) Abnormal CT Scan Findings -Abdominal CT: Hepatosplenogemaly, multiple low attenuation foci scattered throughout hepatic parenchyma with small foci scattered throughout splenic parenchyma, pancreatic and retroperitoneal adenopathy. Periportal LAD rule out post neoplastic lesion such as lymphoma/leukemia/metastatic. Infect/inflamm process less likely -periportal/peripancreatic and retroperitoneal adenopathy -wall thickening of cecum and at ascending colon consist with nonspecific colitis -Triple Phase Liver CT scan: Multiple hepatic masses, do not support hepatocellular carcinoma (see report) 3) AIDS -CD4: 29/7% as of 02/22/2017 -VL: 20 -c/w bactrim as ordered for PCP ppx -c/w azithromycin as ordered for MAC ppx. Last dose on 04/15. Due for next dose on 04/22. -c/w HAART as ordered- CHRIS [place]. Pt has asked friend to bring from home. 4) Anemia of Unknown Etiology -Hb 10.5 today -occult blood - pending -iron studies/vitamin levels pending -f/u AM labs 5) Hypokalemia, resolved -3.3 today -D5 0.45 NS with 20meq K+ -Kdur 20mg x1 given today -Monitor BMP 6) Prophylaxis -Lovenox 40mg SC QD 7) Diet -regular 8) Code Status -full code
[2017-04-22] MEDS ORDERED: Potassium Chloride 20 mEq ER Tab PO ONE (15:27)
[2017-04-22 18:26] LABS: SQUAMOUS EPITHIAL < 1 /hpf (0-5); URINE BACTERIA FEW (<OCC); URINE BILIRUBIN NEGATIVE (NEGATIVE); URINE BLOOD NEGATIVE (NEGATIVE); URINE CLARITY SLIGHTY-CLOUDY (Clear); URINE COLOR YELLOW (YELLOW); URINE GLUCOSE (UA) NEG (Normal); URINE LEUKOCYTE ESTERASE TRACE Leu/uL (Negative); URINE PROTEIN 30 mg/dL (NEGATIVE); URINE UROBILINOGEN 0.2-1.0 mg/dL (0.2-1.0)
[2017-04-23] MEDS: metroNIDAZOLE 500mg/100ml NS 100 ML IVPB SCH ×3 (00:53→15:59)
[2017-04-23] MEDS: Piperacillin/Tazobact 3.375 GM in Sodium Chloride 0.9% 100 ML IVPB SCH ×4 (04:20→21:41)
[2017-04-23 06:37] LABS: BASO % 0.2 % (0.0-2.0); EOS % 0.3 % (0.0-4.0); HEMOGLOBIN 9.1 g/dL (12.0-18.0); LYMPH # 0.2 K/uL (1.0-4.3); LYMPH % 9.5 % (20.0-40.0); MEAN CELL VOLUME 81.7 fl (80.0-94.0); MEAN CORPUSCULAR HEMOGLOBIN 27.1 pg (27.0-31.0); MEAN CORPUSCULAR HGB CONC 33.2 g/dL (33.0-37.0); MEAN PLATELET VOLUME 7.7 fl (7.2-11.7); MONO # 0.3 K/uL (0.0-0.8); MONO % 17.4 % (0.0-10.0); NEUT # 1.2 K/uL (1.8-7.0); NEUT % 72.6 % (50.0-75.0); NRBC % 0.1 % (0.0-0.0); RBC 3.37 Mil/uL (4.40-5.90); RED CELL DISTRIBUTION WIDTH 17.4 % (11.5-14.5)
[2017-04-23 06:46] LABS: ALB/GLOB RATIO 0.8 (1.0-2.1); ALBUMIN 2.5 g/dL (3.5-5.0); ALT/SGPT 33 U/L (21-72); AST/SGOT 31 U/L (17-59); BLOOD UREA NITROGEN 6 mg/dl (9-20); CALCIUM 8.3 mg/dL (8.4-10.2); GFR AFRICAN-AMERICAN > 60; GFR NON-AFRICAN AMERICAN > 60
[2017-04-23 07:54] LABS: WHITE BLOOD COUNT 1.6 K/uL (4.8-10.8)
[2017-04-23] MEDS: Tmp-Smz 800 mg-160 mg DS Tab PO SCH (08:42)
[2017-04-23] MEDS: Enoxaparin 40 mg Syringe SC SCH ×2 (09:02→11:11)
[2017-04-23] MEDS ORDERED: Potassium Chloride 20 mEq ER Tab PO ONE (09:38)
--- NOTE | 2017-04-23 11:56 | CP.PCM.PN ---
Subjective - Date & Time of Evaluation Date of Evaluation: 04/23/17 Time of Evaluation: 11:56 - Subjective Subjective: ID Note- Pt. seen and examined today. Pt. is in good spirits and is eating his lunch. He states he has good appetite and denies any nausea. he states he still has diarrhea but is slightly less watery tpday. he still is having fevers but slightly lower. Objective - Vital Signs/Intake and Output Vital Signs (last 24 hours): Temp Pulse Resp BP Pulse Ox 100.1 F H 111 H 20 117/68 97 04/23/17 07:57 04/23/17 07:57 04/23/17 07:57 04/23/17 07:57 04/23/17 07:57 - Medications Medications: Current Medications Acetaminophen (Tylenol 325mg Tab) 650 mg PO Q6 PRN PRN Reason: Fever >100.4 F Last Admin: 04/23/17 08:49 Dose: 650 mg Acetaminophen (Tylenol 325mg Tab) 650 mg PO Q6 PRN PRN Reason: Pain, Mild (1-3) Azithromycin (Zithromax) 1,200 mg PO QWK DARRION PRN Reason: Protocol Enoxaparin Sodium (Lovenox) 40 mg SC DAILY DARRION PRN Reason: Protocol Last Admin: 04/23/17 11:11 Dose: Not Given Home Med (Elviteg/Tayler/Emtric/Tenofo Dis [Stribild Tablet]) 1 tab PO DAILY [facility] Last Admin: 04/23/17 08:43 Dose: 1 tab Piperacillin Sod/Tazobactam (Sod 3.375 gm/ Sodium Chloride) 100 mls @ 100 mls/ hr IVPB Q6 DARRION PRN Reason: Protocol Last Admin: 04/23/17 09:02 Dose: 100 mls/hr Metronidazole (Flagyl 500mg/100ml Ns) 100 mls @ 100 mls/hr IVPB Q8 DARRION PRN Reason: Protocol Last Admin: 04/23/17 08:49 Dose: 100 mls/hr Potassium Chloride 30 meq/ (Sodium Chloride) 1,015 mls @ 150 mls/hr IV .Q6H46M [facility] Stop: 04/24/17 11:44 Trimethoprim/Sulfamethoxazole (Bactrim Ds Tab) 1 tab PO DAILY DARRION PRN Reason: Protocol Last Admin: 04/23/17 08:42 Dose: 1 tab - Labs Labs: - Additional Findings Additional findings: - Constitutional Appears: No Acute Distress - Head Exam Head Exam: ATRAUMATIC - Eye Exam Eye Exam: EOMI, PERRL - ENT Exam ENT Exam: Normal Oropharynx - Neck Exam Neck exam: Positive for: Full Rom - Respiratory Exam Respiratory Exam: Clear to Auscultation Bilateral, NORMAL BREATHING PATTERN - Cardiovascular Exam Cardiovascular Exam: RRR, +S1, +S2 - GI/Abdominal Exam Additional comments: somewhat distended soft No tenderness to palpation + bowel sounds No guarding No rebound - Extremities Exam Extremities exam: Positive for: normal inspection - Neurological Exam Neurological exam: Alert, Oriented x 3 Laboratory Results - last 72 hr 04/20/17 04/20/17 04/20/17 12:22 19:58 22:00 WBC RBC Hgb Hct MCV MCH MCHC RDW Plt Count MPV Neut % (Auto) Lymph % (Auto) [place] % (Auto) Eos % (Auto) Baso % (Auto) Neut # (Auto) Lymph # (Auto) [place] # (Auto) Eos # (Auto) Baso # (Auto) Neutrophils % (Manual) 75 Band Neutrophils % 2 Lymphocytes % (Manual) 7 L Monocytes % (Manual) 13 H Metamyelocytes % 1 H Myelocytes % 2 H Platelet Estimate Slightly decreased L Large Platelets Present Poikilocytosis (manual Slight Anisocytosis (manual) Slight Tear Drop Cells Slight Sodium Potassium Chloride Carbon Dioxide Anion Gap BUN Creatinine Est GFR ( Amer) Est GFR (Non-Af Amer) Random Glucose Lactic Acid 0.7 Calcium Magnesium Total Bilirubin AST ALT Alkaline Phosphatase Lactate Dehydrogenase Total Protein Albumin Globulin Albumin/Globulin Ratio Urine Color Urine Clarity Urine pH Ur Specific [place] Urine Protein Urine Glucose (UA) Urine Ketones Urine Blood Urine Nitrate Urine Bilirubin Urine Urobilinogen Ur Leukocyte Esterase Urine RBC (Auto) Urine Microscopic WBC Ur Squamous Epith Cells Urine Bacteria Stool Occult Blood Negative Stool Leukocytes, Qual C. difficile Ag & Toxin Blood Type Blood Type Confirm Antibody Screen BBK History Checked 04/21/17 04/21/17 04/21/17 08:24 08:24 11:04 WBC 2.9 L RBC 4.34 L Hgb 11.7 L Hct 35.9 MCV 82.7 MCH 27.0 MCHC 32.7 L RDW 17.6 H Plt Count 184 MPV 8.7 Neut % (Auto) 72.7 Lymph % (Auto) 14.3 L [place] % (Auto) 12.7 H Eos % (Auto) 0.1 Baso % (Auto) 0.2 Neut # (Auto) 2.1 Lymph # (Auto) 0.4 L [place] # (Auto) 0.4 Eos # (Auto) 0.0 Baso # (Auto) 0.0 Neutrophils % (Manual) Band Neutrophils % Lymphocytes % (Manual) Monocytes % (Manual) Metamyelocytes % Myelocytes % Platelet Estimate Large Platelets Poikilocytosis (manual Anisocytosis (manual) Tear Drop Cells Sodium 141 Potassium 3.6 Chloride 99 Carbon Dioxide 26 Anion Gap 20 BUN 9 Creatinine 0.6 L Est GFR ( Amer) > 60 Est GFR (Non-Af Amer) > 60 Random Glucose 132 H Lactic Acid Calcium 9.2 Magnesium Total Bilirubin 0.4 AST 36 ALT 32 Alkaline Phosphatase 157 H Lactate Dehydrogenase Total Protein 7.5 Albumin 3.4 L Globulin 4.1 H Albumin/Globulin Ratio 0.8 L Urine Color Urine Clarity Urine pH Ur Specific [place] Urine Protein Urine Glucose (UA) Urine Ketones Urine Blood Urine Nitrate Urine Bilirubin Urine Urobilinogen Ur Leukocyte Esterase Urine RBC (Auto) Urine Microscopic WBC Ur Squamous Epith Cells Urine Bacteria Stool Occult Blood Stool Leukocytes, Qual Negative C. difficile Ag & Toxin Blood Type Blood Type Confirm Antibody Screen BBK History Checked 04/21/17 04/21/17 04/21/17 17:15 17:15 17:15 WBC 2.1 L RBC 3.88 L Hgb 10.6 L Hct 31.6 L MCV 81.4 MCH 27.4 MCHC 33.7 RDW 17.3 H Plt Count 143 MPV 8.2 Neut % (Auto) 76.5 H Lymph % (Auto) 5.3 L [place] % (Auto) 18.0 H Eos % (Auto) 0.1 Baso % (Auto) 0.1 Neut # (Auto) 1.6 L Lymph # (Auto) 0.1 L [place] # (Auto) 0.4 Eos # (Auto) 0.0 Baso # (Auto) 0.0 Neutrophils % (Manual) Band Neutrophils % Lymphocytes % (Manual) Monocytes % (Manual) Metamyelocytes % Myelocytes % Platelet Estimate Large Platelets Poikilocytosis (manual Anisocytosis (manual) Tear Drop Cells Sodium 138 Potassium 3.0 L Chloride 101 Carbon Dioxide 23 Anion Gap 17 BUN 6 L Creatinine 0.6 L Est GFR ( Amer) > 60 Est GFR (Non-Af Amer) > 60 Random Glucose 139 H Lactic Acid 0.9 Calcium 8.5 Magnesium Total Bilirubin 0.5 AST 44 ALT 35 Alkaline Phosphatase 141 H Lactate Dehydrogenase Total Protein 7.0 Albumin 3.1 L Globulin 3.9 Albumin/Globulin Ratio 0.8 L Urine Color Urine Clarity Urine pH Ur Specific [place] Urine Protein Urine Glucose (UA) Urine Ketones Urine Blood Urine Nitrate Urine Bilirubin Urine Urobilinogen Ur Leukocyte Esterase Urine RBC (Auto) Urine Microscopic WBC Ur Squamous Epith Cells Urine Bacteria Stool Occult Blood Stool Leukocytes, Qual C. difficile Ag & Toxin Blood Type Blood Type Confirm Antibody Screen BBK History Checked 04/21/17 04/22/17 04/22/17 17:15 06:00 06:00 WBC 1.6 L* RBC 3.95 L Hgb 10.8 L Hct 32.5 L MCV 82.5 MCH 27.5 MCHC 33.3 RDW 17.3 H Plt Count 135 MPV Neut % (Auto) Lymph % (Auto) [place] % (Auto) Eos % (Auto) Baso % (Auto) Neut # (Auto) Lymph # (Auto) [place] # (Auto) Eos # (Auto) Baso # (Auto) Neutrophils % (Manual) Band Neutrophils % Lymphocytes % (Manual) Monocytes % (Manual) Metamyelocytes % Myelocytes % Platelet Estimate Large Platelets Poikilocytosis (manual Anisocytosis (manual) Tear Drop Cells Sodium 140 Potassium 3.3 L Chloride 102 Carbon Dioxide 24 Anion Gap 17 BUN 7 L Creatinine 0.7 L Est GFR ( Amer) > 60 Est GFR (Non-Af Amer) > 60 Random Glucose 104 Lactic Acid Calcium 8.6 Magnesium 1.9 Total Bilirubin 0.5 AST 29 ALT 39 Alkaline Phosphatase 146 H Lactate Dehydrogenase 415 Total Protein 6.9 Albumin 3.0 L Globulin 3.9 Albumin/Globulin Ratio 0.8 L Urine Color Urine Clarity Urine pH Ur Specific [place] Urine Protein Urine Glucose (UA) Urine Ketones Urine Blood Urine Nitrate Urine Bilirubin Urine Urobilinogen Ur Leukocyte Esterase Urine RBC (Auto) Urine Microscopic WBC Ur Squamous Epith Cells Urine Bacteria Stool Occult Blood Stool Leukocytes, Qual C. difficile Ag & Toxin Blood Type Blood Type Confirm Antibody Screen BBK History Checked 04/22/17 04/22/17 04/22/17 06:00 07:30 09:38 WBC RBC Hgb Hct MCV MCH MCHC RDW Plt Count MPV Neut % (Auto) Lymph % (Auto) [place] % (Auto) Eos % (Auto) Baso % (Auto) Neut # (Auto) Lymph # (Auto) [place] # (Auto) Eos # (Auto) Baso # (Auto) Neutrophils % (Manual) Band Neutrophils % Lymphocytes % (Manual) Monocytes % (Manual) Metamyelocytes % Myelocytes % Platelet Estimate Large Platelets Poikilocytosis (manual Anisocytosis (manual) Tear Drop Cells Sodium Potassium Chloride Carbon Dioxide Anion Gap BUN Creatinine Est GFR ( Amer) Est GFR (Non-Af Amer) Random Glucose Lactic Acid Calcium Magnesium Total Bilirubin AST ALT Alkaline Phosphatase Lactate Dehydrogenase Total Protein Albumin Globulin Albumin/Globulin Ratio Urine Color Urine Clarity Urine pH Ur Specific [place] Urine Protein Urine Glucose (UA) Urine Ketones Urine Blood Urine Nitrate Urine Bilirubin Urine Urobilinogen Ur Leukocyte Esterase Urine RBC (Auto) Urine Microscopic WBC Ur Squamous Epith Cells Urine Bacteria Stool Occult Blood Stool Leukocytes, Qual C. difficile Ag & Toxin Negative Blood Type O POSITIVE Blood Type Confirm O POSITIVE Antibody Screen Negative BBK History Checked No verified bt 04/22/17 04/23/17 04/23/17 18:00 05:30 05:30 WBC 1.6 L* RBC 3.37 L Hgb 9.1 L Hct 27.5 L MCV 81.7 MCH 27.1 MCHC 33.2 RDW 17.4 H Plt Count 110 L D MPV 7.7 Neut % (Auto) 72.6 Lymph % (Auto) 9.5 L [place] % (Auto) 17.4 H Eos % (Auto) 0.3 Baso % (Auto) 0.2 Neut # (Auto) 1.2 L Lymph # (Auto) 0.2 L [place] # (Auto) 0.3 Eos # (Auto) 0.0 Baso # (Auto) 0.0 Neutrophils % (Manual) Band Neutrophils % Lymphocytes % (Manual) Monocytes % (Manual) Metamyelocytes % Myelocytes % Platelet Estimate Large Platelets Poikilocytosis (manual Anisocytosis (manual) Tear Drop Cells Sodium 139 Potassium 3.3 L Chloride 104 Carbon Dioxide 23 Anion Gap 15 BUN 6 L Creatinine 0.6 L Est GFR ( Amer) > 60 Est GFR (Non-Af Amer) > 60 Random Glucose 93 Lactic Acid Calcium 8.3 L Magnesium Total Bilirubin 0.5 AST 31 ALT 33 Alkaline Phosphatase 120 Lactate Dehydrogenase Total Protein 5.8 L Albumin 2.5 L Globulin 3.3 Albumin/Globulin Ratio 0.8 L Urine Color Yellow Urine Clarity Slighty-cloudy Urine pH 5.0 Ur Specific [place] 1.023 Urine Protein 30 Urine Glucose (UA) Neg Urine Ketones Negative Urine Blood Negative Urine Nitrate Negative Urine Bilirubin Negative Urine Urobilinogen 0.2-1.0 Ur Leukocyte Esterase Trace Urine RBC (Auto) 3 Urine Microscopic WBC 5 Ur Squamous Epith Cells < 1 Urine Bacteria Few H Stool Occult Blood Stool Leukocytes, Qual C. difficile Ag & Toxin Blood Type Blood Type Confirm Antibody Screen BBK History Checked Microbiology 04/21/17 07:59 Urine Urine Culture - Final Gram Positive Cocci 04/21/17 11:04 Stool Stool Culture - Final NO SALMONELLA, SHIGELLA OR CAMPYLOBACTER ISOLATED. 04/22/17 08:58 Blood-Venous Blood Culture - Preliminary NO GROWTH AFTER 24 HOURS 04/22/17 08:58 Blood-Venous Blood Culture - Preliminary NO GROWTH AFTER 24 HOURS 04/20/17 18:15 Blood Blood Culture - Preliminary NO GROWTH AFTER 48 HOURS 04/21/17 11:04 Stool Ova and Parasite Concentrate Exam - Final 04/21/17 10:15 Other: Please Indicate Mycobacterial Culture - Preliminary Assessment and Plan (1) Hepatosplenomegaly Status: Acute (2) Leukopenia Status: Acute (3) HIV disease Status: Acute (4) Diarrhea Status: Acute (5) Weight loss Status: Acute - Assessment and Plan (Free Text) Assessment: A/P- 37 y/o male with HIV/AIDS admitted with diarrhea and fever. febrile but t-max trending down diarrhea persists but less watery as per pt. blood cx- neg x 3 stool cx- neg stool ova and parasite- neg UA- trace LE and urine cx- <10,000 GPC stool c.diff- negative Plan: await rest of stool studies. continue with zithromax 1200 mg once a week for MAC prophylaxis. in light of leukopenia switch patient to mepron for PCP prophylaxis. continue with his home stribild, [address] reviewed - recommend IR biopsy of any lesions which may assist in diagnosis - R/O lymphoma may need endoscopic evaluation with biopsies to R/O HSV/CMV . advise to continue with empiric IV zosyn that was initiated by the primary team along with the flagyl pending further results. check quantiferon gold as well. await blood AFB cx. all above d/w patient at length and he verbalizes full understanding of all above.
[2017-04-23] MEDS: KCL 40MEQ/NS 1L 1,000 ML IV SCH ×2 (15:39→18:57)
--- NOTE | 2017-04-23 17:03 | CP.PCM.PN ---
Subjective - Date & Time of Evaluation Date of Evaluation: 04/23/17 Time of Evaluation: 08:00 - Subjective Subjective: Pt seen and examined in the am. States he feels better today. Still having BM but more formed now, less watery. +Night sweats overnight. Denies cough, cp, abdominal pain, n/v. Tolerating diet. Objective - Vital Signs/Intake and Output Vital Signs (last 24 hours): Temp Pulse Resp BP Pulse Ox 103 F H 122 H 20 125/75 98 04/23/17 15:31 04/23/17 15:31 04/23/17 15:31 04/23/17 15:31 04/23/17 15:31 - Medications Medications: Current Medications Acetaminophen (Tylenol 325mg Tab) 650 mg PO Q6 PRN PRN Reason: Fever >100.4 F Last Admin: 04/23/17 15:19 Dose: 650 mg Acetaminophen (Tylenol 325mg Tab) 650 mg PO Q6 PRN PRN Reason: Pain, Mild (1-3) Azithromycin (Zithromax) 1,200 mg PO QWK DARRION PRN Reason: Protocol Last Admin: 04/23/17 16:29 Dose: 1,200 mg Enoxaparin Sodium (Lovenox) 40 mg SC DAILY DARRION PRN Reason: Protocol Last Admin: 04/23/17 11:11 Dose: Not Given Home Med (Elviteg/Tayler/Emtric/Tenofo Dis [Stribild Tablet]) 1 tab PO DAILY [facility] Last Admin: 04/23/17 08:43 Dose: 1 tab Piperacillin Sod/Tazobactam (Sod 3.375 gm/ Sodium Chloride) 100 mls @ 100 mls/ hr IVPB Q6 DARRION PRN Reason: Protocol Last Admin: 04/23/17 15:20 Dose: 100 mls/hr Metronidazole (Flagyl 500mg/100ml Ns) 100 mls @ 100 mls/hr IVPB Q8 DARRION PRN Reason: Protocol Last Admin: 04/23/17 15:59 Dose: 100 mls/hr Oral Electrolytes (Kcl 40meq/ 0.9% 1l) 1,000 mls @ 150 mls/hr IV .Q6H40M [facility] Stop: 04/24/17 11:44 Last Admin: 04/23/17 15:39 Dose: 150 mls/hr Trimethoprim/Sulfamethoxazole (Bactrim Ds Tab) 1 tab PO DAILY DARRION PRN Reason: Protocol Last Admin: 04/23/17 08:42 Dose: 1 tab - Labs Labs: 04/23/17 05:30 04/23/17 05:30 - Constitutional Appears: Well, Non-toxic, No Acute Distress - Head Exam Head Exam: NORMAL INSPECTION - Eye Exam Eye Exam: Normal appearance - ENT Exam ENT Exam: Mucous Membranes Moist - Respiratory Exam Respiratory Exam: Clear to Ausculation Bilateral. absent: Rales, Wheezes - Cardiovascular Exam Cardiovascular Exam: REGULAR RHYTHM, +S1, +S2. absent: Murmur - GI/Abdominal Exam GI & Abdominal Exam: Soft, Normal Bowel Sounds. absent: Distended, Tenderness - Extremities Exam Extremities Exam: absent: Pedal Edema - Neurological Exam Neurological Exam: Alert, Awake, Oriented x3 Assessment and Plan - Assessment and Plan (Free Text) Assessment: 37 y/o male with PMHx AIDs (CD4 29) admitted for evaluation of diarrhea, unintentional weight loss, and abnormal CT scan findings. Still spiking fevers intermittently. Diarrhea improving. Biopsy when stable as per heme/onc. 1) Acute Diarrhea in AIDS patient -Diarrhea improving. Still spiking fevers and having night sweats. Tmax 103 -regular diet, fluids- NaCl w/ KCL -fever control, no -monitor vitals -lacate: 0.7 -CBC: WBC 2.9, Hg 11.7 -electrolytes normal -Stool O/P: pending -Fecal Leuks: pending -Stool Lipids: pending -Stool CMV: pending (serum CMV IgG and IgM ordered) -occult blood: pending -MAC blood cultures: pending -ID Consulted -GI Consulted 2) Abnormal CT Scan Findings -Abdominal CT: Hepatosplenogemaly, multiple low attenuation foci scattered throughout hepatic parenchyma with small foci scattered throughout splenic parenchyma, pancreatic and retroperitoneal adenopathy. Periportal LAD rule out post neoplastic lesion such as lymphoma/leukemia/metastatic. Infect/inflamm process less likely -periportal/peripancreatic and retroperitoneal adenopathy -wall thickening of cecum and at ascending colon consist with nonspecific colitis -Triple Phase Liver CT scan: Multiple hepatic masses, do not support hepatocellular carcinoma (see report) 3) AIDS -CD4: 29/7% as of 02/22/2017 -VL: 20 -c/w bactrim as ordered for PCP ppx -c/w azithromycin as ordered for MAC ppx. Last dose on 04/15. Due for next dose on 04/30. -c/w HAART as ordered- CHRIS [place]. Pt has asked friend to bring from home. 4) Anemia of Unknown Etiology -Hb 9.1 today -occult blood - negative -iron studies/vitamin levels pending -f/u AM labs 5) Hypokalemia, resolved -3.3 today -D5 0.45 NS with 20meq K+ -Kdur 40mg x1 given today -Monitor BMP 6) Prophylaxis -Lovenox 40mg SC QD 7) Diet -regular 8) Code Status -full code
--- NOTE | 2017-04-23 18:27 | CP.PCM.PN ---
Subjective - Date & Time of Evaluation Date of Evaluation: 04/22/17 Time of Evaluation: 20:00 - Subjective Subjective: Feeling better. Objective - Vital Signs/Intake and Output Vital Signs (last 24 hours): Temp Pulse Resp BP Pulse Ox 100.8 F H 122 H 20 125/75 98 04/23/17 16:40 04/23/17 15:31 04/23/17 15:31 04/23/17 15:31 04/23/17 15:31 - Medications Medications: Current Medications Acetaminophen (Tylenol 325mg Tab) 650 mg PO Q6 PRN PRN Reason: Fever >100.4 F Last Admin: 04/23/17 15:19 Dose: 650 mg Acetaminophen (Tylenol 325mg Tab) 650 mg PO Q6 PRN PRN Reason: Pain, Mild (1-3) Azithromycin (Zithromax) 1,200 mg PO QWK DARRION PRN Reason: Protocol Last Admin: 04/23/17 16:29 Dose: 1,200 mg Enoxaparin Sodium (Lovenox) 40 mg SC DAILY DARRION PRN Reason: Protocol Last Admin: 04/23/17 11:11 Dose: Not Given Home Med (Elviteg/Tayler/Emtric/Tenofo Dis [Stribild Tablet]) 1 tab PO DAILY [facility] Last Admin: 04/23/17 08:43 Dose: 1 tab Piperacillin Sod/Tazobactam (Sod 3.375 gm/ Sodium Chloride) 100 mls @ 100 mls/ hr IVPB Q6 DARRION PRN Reason: Protocol Last Admin: 04/23/17 15:20 Dose: 100 mls/hr Metronidazole (Flagyl 500mg/100ml Ns) 100 mls @ 100 mls/hr IVPB Q8 DARRION PRN Reason: Protocol Last Admin: 04/23/17 15:59 Dose: 100 mls/hr Oral Electrolytes (Kcl 40meq/ 0.9% 1l) 1,000 mls @ 150 mls/hr IV .Q6H40M [facility] Stop: 04/24/17 11:44 Last Admin: 04/23/17 15:39 Dose: 150 mls/hr Trimethoprim/Sulfamethoxazole (Bactrim Ds Tab) 1 tab PO DAILY DARRION PRN Reason: Protocol Last Admin: 04/23/17 08:42 Dose: 1 tab - Labs Labs: 04/23/17 05:30 03/17/18 05:30 - Head Exam Head Exam: ATRAUMATIC - Eye Exam Eye Exam: Normal appearance - ENT Exam ENT Exam: Mucous Membranes Dry - Respiratory Exam Respiratory Exam: NORMAL BREATHING PATTERN - Cardiovascular Exam Cardiovascular Exam: +S1, +S2 - GI/Abdominal Exam GI & Abdominal Exam: Normal Bowel Sounds Assessment and Plan (1) Hepatosplenomegaly Assessment & Plan: with liver/splenic lesions recommend IR biopsy of most accessible lesion Status: Acute (2) Lymphadenopathy Assessment & Plan: ? malignancy Status: Acute (3) Anemia Assessment & Plan: anemia w/u Status: Acute (4) Leukopenia Assessment & Plan: likely secondary to HIV/AIDS Status: Acute
--- NOTE | 2017-04-23 18:28 | CP.PCM.PN ---
Subjective - Date & Time of Evaluation Date of Evaluation: 04/23/17 Time of Evaluation: 17:30 - Subjective Subjective: Feeling better Objective - Vital Signs/Intake and Output Vital Signs (last 24 hours): Temp Pulse Resp BP Pulse Ox 100.8 F H 122 H 20 125/75 98 04/23/17 16:40 04/23/17 15:31 04/23/17 15:31 04/23/17 15:31 04/23/17 15:31 - Medications Medications: Current Medications Acetaminophen (Tylenol 325mg Tab) 650 mg PO Q6 PRN PRN Reason: Fever >100.4 F Last Admin: 04/23/17 15:19 Dose: 650 mg Acetaminophen (Tylenol 325mg Tab) 650 mg PO Q6 PRN PRN Reason: Pain, Mild (1-3) Azithromycin (Zithromax) 1,200 mg PO QWK DARRION PRN Reason: Protocol Last Admin: 04/23/17 16:29 Dose: 1,200 mg Enoxaparin Sodium (Lovenox) 40 mg SC DAILY DARRION PRN Reason: Protocol Last Admin: 04/23/17 11:11 Dose: Not Given Home Med (Elviteg/Tayler/Emtric/Tenofo Dis [Stribild Tablet]) 1 tab PO DAILY [facility] Last Admin: 04/23/17 08:43 Dose: 1 tab Piperacillin Sod/Tazobactam (Sod 3.375 gm/ Sodium Chloride) 100 mls @ 100 mls/ hr IVPB Q6 DARRION PRN Reason: Protocol Last Admin: 04/23/17 15:20 Dose: 100 mls/hr Metronidazole (Flagyl 500mg/100ml Ns) 100 mls @ 100 mls/hr IVPB Q8 DARRION PRN Reason: Protocol Last Admin: 04/23/17 15:59 Dose: 100 mls/hr Oral Electrolytes (Kcl 40meq/ 0.9% 1l) 1,000 mls @ 150 mls/hr IV .Q6H40M [facility] Stop: 04/24/17 11:44 Last Admin: 04/23/17 15:39 Dose: 150 mls/hr Trimethoprim/Sulfamethoxazole (Bactrim Ds Tab) 1 tab PO DAILY DARRION PRN Reason: Protocol Last Admin: 04/23/17 08:42 Dose: 1 tab - Labs Labs: 04/23/17 05:30 04/23/17 05:30 - Head Exam Head Exam: ATRAUMATIC - Eye Exam Eye Exam: Normal appearance - ENT Exam ENT Exam: Mucous Membranes Dry - Respiratory Exam Respiratory Exam: NORMAL BREATHING PATTERN - Cardiovascular Exam Cardiovascular Exam: +S1, +S2 - GI/Abdominal Exam GI & Abdominal Exam: Normal Bowel Sounds Assessment and Plan (1) Hepatosplenomegaly Assessment & Plan: with liver/splenic lesions recommend IR biopsy of most accessible lesion Status: Acute (2) Lymphadenopathy Assessment & Plan: ? malignancy Status: Acute (3) Anemia Assessment & Plan: anemia w/u sent likely anemia of HIV Status: Acute (4) Leukopenia Assessment & Plan: suspect HIV/AIDS related Status: Acute
[2017-04-24] MEDS: metroNIDAZOLE 500mg/100ml NS 100 ML IVPB SCH ×3 (00:38→16:04)
[2017-04-24] MEDS: KCL 40MEQ/NS 1L 1,000 ML IV SCH ×2 (01:23→07:56)
[2017-04-24] MEDS: Piperacillin/Tazobact 3.375 GM in Sodium Chloride 0.9% 100 ML IVPB SCH ×4 (03:35→22:10)
[2017-04-24 07:11] LABS: HEMOGLOBIN 8.4 g/dL (12.0-18.0); MEAN CELL VOLUME 82.6 fl (80.0-94.0); MEAN CORPUSCULAR HEMOGLOBIN 27.1 pg (27.0-31.0); MEAN CORPUSCULAR HGB CONC 32.8 g/dL (33.0-37.0); RBC 3.1 Mil/uL (4.40-5.90); RED CELL DISTRIBUTION WIDTH 17.3 % (11.5-14.5)
[2017-04-24 07:17] LABS: WHITE BLOOD COUNT 1.6 K/uL (4.8-10.8)
[2017-04-24 07:26] LABS: BLOOD UREA NITROGEN 6 mg/dl (9-20); CALCIUM 8.2 mg/dL (8.4-10.2); GFR AFRICAN-AMERICAN > 60; GFR NON-AFRICAN AMERICAN > 60
[2017-04-24] MEDS: Enoxaparin 40 mg Syringe SC SCH (09:33)
--- NOTE | 2017-04-24 10:13 | CP.PCM.PN ---
Subjective - Date & Time of Evaluation Date of Evaluation: 04/24/17 Time of Evaluation: 09:50 - Subjective Subjective: 37M seen and examined at bedside with attending. Pt reports he is still having fevers with diaphoresis, but his diarrhea has improved and he is now having much fewer episodes and they are now yellowish in color. Otherwise, he denies complaints. Objective - Vital Signs/Intake and Output Vital Signs (last 24 hours): Temp Pulse Resp BP Pulse Ox 36.9 C 74 20 110/63 98 04/24/17 08:01 04/24/17 08:01 04/24/17 08:01 04/24/17 08:01 04/24/17 08:01 - Medications Medications: Current Medications Acetaminophen (Tylenol 325mg Tab) 650 mg PO Q6 PRN PRN Reason: Fever >100.4 F Last Admin: 04/24/17 03:40 Dose: 650 mg Acetaminophen (Tylenol 325mg Tab) 650 mg PO Q6 PRN PRN Reason: Pain, Mild (1-3) Azithromycin (Zithromax) 1,200 mg PO QWK DARRION PRN Reason: Protocol Last Admin: 04/23/17 16:29 Dose: 1,200 mg Enoxaparin Sodium (Lovenox) 40 mg SC DAILY DARRION PRN Reason: Protocol Last Admin: 04/24/17 09:33 Dose: Not Given Home Med (Elviteg/Tayler/Emtric/Tenofo Dis [Stribild Tablet]) 1 tab PO DAILY [facility] Last Admin: 04/24/17 07:59 Dose: 1 tab Piperacillin Sod/Tazobactam (Sod 3.375 gm/ Sodium Chloride) 100 mls @ 100 mls/ hr IVPB Q6 DARRION PRN Reason: Protocol Last Admin: 04/24/17 09:07 Dose: 100 mls/hr Metronidazole (Flagyl 500mg/100ml Ns) 100 mls @ 100 mls/hr IVPB Q8 DARRION PRN Reason: Protocol Last Admin: 04/24/17 07:59 Dose: 100 mls/hr Oral Electrolytes (Kcl 40meq/ 0.9% 1l) 1,000 mls @ 150 mls/hr IV .Q6H40M [facility] Stop: 04/24/17 11:44 Last Admin: 04/24/17 07:56 Dose: 150 mls/hr - Labs Labs: 04/24/17 05:30 04/24/17 05:30 - Constitutional Appears: Well, Non-toxic - Head Exam Head Exam: ATRAUMATIC, NORMAL INSPECTION - Eye Exam Eye Exam: EOMI, Normal appearance - ENT Exam ENT Exam: Mucous Membranes Moist - Respiratory Exam Respiratory Exam: Clear to Ausculation Bilateral, NORMAL BREATHING PATTERN - Cardiovascular Exam Cardiovascular Exam: REGULAR RHYTHM, +S1, +S2 - GI/Abdominal Exam GI & Abdominal Exam: Soft. absent: Tenderness - Extremities Exam Extremities Exam: Full ROM, Normal Capillary Refill. absent: Pedal Edema - Neurological Exam Neurological Exam: Alert, Awake, Oriented x3 - Psychiatric Exam Psychiatric exam: Normal Affect, Normal Mood - Skin Skin Exam: Dry, Warm Assessment and Plan - Assessment and Plan (Free Text) Assessment: 37M AIDS patient with unexplained diarrhea, liver lesions, adenopathy, and B symptoms. IR declining to perform biopsy if patient remains febrile. Plan: - Regular Diet - Hypokalemia: replete as needed since diarrhea has improved - Hypovolemia: PRN NS boluses - AIDS: ARV, Azithromycin, Mepron (Bactrim stopped as per ID may be contributing to bone marrow suppression) - Pancytopenia: Heme/Onc consult appreciated- AIDS v. hematologic disorder ( lymphoma/leukemia), f/u Heme/Onc recommendations - Diarrhea: ID consult appreciated, f/u stool/blood testing as indicated, f/u ID recommendations
[2017-04-24] MEDS ORDERED: KCL 40MEQ/NS 1L 1,000 ML IV SCH (12:00)
[2017-04-24] MEDS ORDERED: Potassium Chloride 20 mEq ER Tab PO ONE (13:56)
[2017-04-24] MEDS: Atovaquone 750 mg/5 ml Susp UD PO SCH (16:04)
[2017-04-24 17:17] LABS: FOLATE 8.6 ng/mL
[2017-04-25] MEDS: metroNIDAZOLE 500mg/100ml NS 100 ML IVPB SCH ×3 (00:43→17:35)
[2017-04-25] MEDS: Piperacillin/Tazobact 3.375 GM in Sodium Chloride 0.9% 100 ML IVPB SCH ×3 (04:15→17:41)
[2017-04-25 06:49] LABS: HEMOGLOBIN 9.2 g/dL (12.0-18.0); MEAN CORPUSCULAR HEMOGLOBIN 27.1 pg (27.0-31.0); RBC 3.41 Mil/uL (4.40-5.90); RED CELL DISTRIBUTION WIDTH 17.3 % (11.5-14.5)
[2017-04-25 07:08] LABS: BLOOD UREA NITROGEN 6 mg/dl (9-20); CALCIUM 8.5 mg/dL (8.4-10.2); GFR AFRICAN-AMERICAN > 60; GFR NON-AFRICAN AMERICAN > 60
[2017-04-25] MEDS: Atovaquone 750 mg/5 ml Susp UD PO SCH (08:50)
[2017-04-25] MEDS: Enoxaparin 40 mg Syringe SC SCH (08:50)
[2017-04-25] MEDS ORDERED: Potassium Chloride 20 mEq ER Tab PO ONE (09:52)
--- NOTE | 2017-04-25 11:42 | CP.PCM.PN ---
Subjective - Date & Time of Evaluation Date of Evaluation: 04/25/17 Time of Evaluation: 11:42 - Subjective Subjective: ID Note- Pt. seen and examined today. He states he continues to have diarrhea and fevers. He states he eats well and denies any nausea or abd. pain. Objective - Vital Signs/Intake and Output Vital Signs (last 24 hours): Temp Pulse Resp BP Pulse Ox 102.8 F H 62 20 118/75 99 04/25/17 10:48 04/25/17 07:54 04/25/17 07:54 04/25/17 07:54 04/25/17 07:54 - Medications Medications: Current Medications Acetaminophen (Tylenol 325mg Tab) 650 mg PO Q6 PRN PRN Reason: Fever >100.4 F Last Admin: 04/25/17 10:48 Dose: 650 mg Atovaquone (Mepron) 1,500 mg PO DAILY [facility] PRN Reason: Protocol Last Admin: 04/25/17 08:50 Dose: 1,500 mg Azithromycin (Zithromax) 1,200 mg PO QWK [facility] PRN Reason: Protocol Last Admin: 04/25/17 08:49 Dose: 1,200 mg Enoxaparin Sodium (Lovenox) 40 mg SC DAILY [facility] PRN Reason: Protocol Last Admin: 04/25/17 08:50 Dose: Not Given Home Med (Elviteg/Tayler/Emtric/Tenofo Dis [Stribild Tablet]) 1 tab PO DAILY [facility] Last Admin: 04/24/17 07:59 Dose: 1 tab Piperacillin Sod/Tazobactam (Sod 3.375 gm/ Sodium Chloride) 100 mls @ 100 mls/ hr IVPB Q6 [facility] PRN Reason: Protocol Last Admin: 04/25/17 10:49 Dose: 100 mls/hr Metronidazole (Flagyl 500mg/100ml Ns) 100 mls @ 100 mls/hr IVPB Q8 [facility] PRN Reason: Protocol Last Admin: 04/25/17 08:49 Dose: 100 mls/hr - Labs Labs: - Additional Findings Additional findings: - Constitutional Appears: No Acute Distress - Head Exam Head Exam: ATRAUMATIC - Eye Exam Eye Exam: EOMI, PERRL - ENT Exam ENT Exam: Normal Oropharynx - Neck Exam Neck exam: Positive for: Full Rom - Respiratory Exam Respiratory Exam: Clear to Auscultation Bilateral, NORMAL BREATHING PATTERN - Cardiovascular Exam Cardiovascular Exam: RRR, +S1, +S2 - GI/Abdominal Exam Additional comments: somewhat distended soft No tenderness to palpation + bowel sounds No guarding No rebound - Extremities Exam Extremities exam: Positive for: normal inspection - Neurological Exam Neurological exam: Alert, Oriented x 3 Laboratory Results - last 72 hr 04/21/17 04/22/17 04/22/17 11:04 06:00 09:38 WBC RBC Hgb Hct MCV MCH MCHC RDW Plt Count MPV Neut % (Auto) Lymph % (Auto) Hand % (Auto) Eos % (Auto) Baso % (Auto) Neut # (Auto) Lymph # (Auto) Hand # (Auto) Eos # (Auto) Baso # (Auto) Retic Count Sodium Potassium Chloride Carbon Dioxide Anion Gap BUN Creatinine Est GFR ( Amer) Est GFR (Non-Af Amer) Random Glucose Calcium Ferritin Total Bilirubin AST ALT Alkaline Phosphatase Total Protein Albumin Globulin Albumin/Globulin Ratio Vitamin B12 Folate Urine Color Urine Clarity Urine pH Ur Specific Cowgill Urine Protein Urine Glucose (UA) Urine Ketones Urine Blood Urine Nitrate Urine Bilirubin Urine Urobilinogen Ur Leukocyte Esterase Urine RBC (Auto) Urine Microscopic WBC Ur Squamous Epith Cells Urine Bacteria Stool Occult Blood Stool Leukocytes, Qual Negative C. difficile Ag & Toxin Negative CMV IgG Ab >10.00 H CMV IgM Ab <30.00 04/22/17 04/23/17 04/23/17 18:00 03:30 05:30 WBC 1.6 L* RBC 3.37 L Hgb 9.1 L Hct 27.5 L MCV 81.7 MCH 27.1 MCHC 33.2 RDW 17.4 H Plt Count 110 L D MPV 7.7 Neut % (Auto) 72.6 Lymph % (Auto) 9.5 L Hand % (Auto) 17.4 H Eos % (Auto) 0.3 Baso % (Auto) 0.2 Neut # (Auto) 1.2 L Lymph # (Auto) 0.2 L Hand # (Auto) 0.3 Eos # (Auto) 0.0 Baso # (Auto) 0.0 Retic Count Sodium Potassium Chloride Carbon Dioxide Anion Gap BUN Creatinine Est GFR ( Amer) Est GFR (Non-Af Amer) Random Glucose Calcium Ferritin Total Bilirubin AST ALT Alkaline Phosphatase Total Protein Albumin Globulin Albumin/Globulin Ratio Vitamin B12 Folate Urine Color Yellow Urine Clarity Slighty-cloudy Urine pH 5.0 Ur Specific Cowgill 1.023 Urine Protein 30 Urine Glucose (UA) Neg Urine Ketones Negative Urine Blood Negative Urine Nitrate Negative Urine Bilirubin Negative Urine Urobilinogen 0.2-1.0 Ur Leukocyte Esterase Trace Urine RBC (Auto) 3 Urine Microscopic WBC 5 Ur Squamous Epith Cells < 1 Urine Bacteria Few H Stool Occult Blood Negative Stool Leukocytes, Qual C. difficile Ag & Toxin CMV IgG Ab CMV IgM Ab 04/23/17 04/24/17 04/24/17 05:30 05:30 05:30 WBC 1.6 L* RBC 3.10 L Hgb 8.4 L Hct 25.6 L MCV 82.6 MCH 27.1 MCHC 32.8 L RDW 17.3 H Plt Count 101 L MPV Neut % (Auto) Lymph % (Auto) Hand % (Auto) Eos % (Auto) Baso % (Auto) Neut # (Auto) Lymph # (Auto) Hand # (Auto) Eos # (Auto) Baso # (Auto) Retic Count Sodium 139 141 Potassium 3.3 L 3.5 L Chloride 104 104 Carbon Dioxide 23 25 Anion Gap 15 16 BUN 6 L 6 L Creatinine 0.6 L 0.7 L Est GFR ( Amer) > 60 > 60 Est GFR (Non-Af Amer) > 60 > 60 Random Glucose 93 94 Calcium 8.3 L 8.2 L Ferritin 824.0 H Total Bilirubin 0.5 AST 31 ALT 33 Alkaline Phosphatase 120 Total Protein 5.8 L Albumin 2.5 L Globulin 3.3 Albumin/Globulin Ratio 0.8 L Vitamin B12 386 Folate 8.6 Urine Color Urine Clarity Urine pH Ur Specific Cowgill Urine Protein Urine Glucose (UA) Urine Ketones Urine Blood Urine Nitrate Urine Bilirubin Urine Urobilinogen Ur Leukocyte Esterase Urine RBC (Auto) Urine Microscopic WBC Ur Squamous Epith Cells Urine Bacteria Stool Occult Blood Stool Leukocytes, Qual C. difficile Ag & Toxin CMV IgG Ab CMV IgM Ab 04/24/17 04/25/17 04/25/17 05:30 06:10 06:10 WBC 2.0 L* RBC 3.41 L Hgb 9.2 L Hct 28.0 L MCV 82.0 MCH 27.1 MCHC 33.0 RDW 17.3 H Plt Count 131 MPV Neut % (Auto) Lymph % (Auto) Hand % (Auto) Eos % (Auto) Baso % (Auto) Neut # (Auto) Lymph # (Auto) Hand # (Auto) Eos # (Auto) Baso # (Auto) Retic Count 0.6 Sodium 137 Potassium 3.4 L Chloride 100 Carbon Dioxide 25 Anion Gap 15 BUN 6 L Creatinine 0.6 L Est GFR ( Amer) > 60 Est GFR (Non-Af Amer) > 60 Random Glucose 101 Calcium 8.5 Ferritin Total Bilirubin AST ALT Alkaline Phosphatase Total Protein Albumin Globulin Albumin/Globulin Ratio Vitamin B12 Folate Urine Color Urine Clarity Urine pH Ur Specific Cowgill Urine Protein Urine Glucose (UA) Urine Ketones Urine Blood Urine Nitrate Urine Bilirubin Urine Urobilinogen Ur Leukocyte Esterase Urine RBC (Auto) Urine Microscopic WBC Ur Squamous Epith Cells Urine Bacteria Stool Occult Blood Stool Leukocytes, Qual C. difficile Ag & Toxin CMV IgG Ab CMV IgM Ab Microbiology 04/22/17 08:58 Blood-Venous Blood Culture - Preliminary NO GROWTH AFTER 3 DAYS 04/22/17 08:58 Blood-Venous Blood Culture - Preliminary NO GROWTH AFTER 3 DAYS 04/20/17 18:15 Blood Blood Culture - Preliminary NO GROWTH AFTER 4 DAYS 04/22/17 18:00 Urine,Clean Catch Urine Culture - Final No Growth (<1,000 CFU/ML) 04/21/17 07:59 Urine Urine Culture - Final Gram Positive Cocci 04/21/17 11:04 Stool Stool Culture - Final NO SALMONELLA, SHIGELLA OR CAMPYLOBACTER ISOLATED. 04/21/17 11:04 Stool Ova and Parasite Concentrate Exam - Final 04/21/17 10:15 Other: Please Indicate Mycobacterial Culture - Preliminary Assessment and Plan (1) Hepatosplenomegaly Status: Acute (2) Leukopenia Status: Acute (3) HIV disease Status: Acute (4) Diarrhea Status: Acute (5) Weight loss Status: Acute - Assessment and Plan (Free Text) Assessment: A/P- 37 y/o male with HIV/AIDS admitted with diarrhea and fever. continues to be febrile and t-max again 102 diarrhea persists . blood cx- neg x 3 stool cx- neg stool ova and parasite- neg UA- trace LE and urine cx- <10,000 GPC stool c.diff- negative repeat urine cx- negative Plan: await rest of stool studies. continue with zithromax 1200 mg once a week for MAC prophylaxis. continue with o mepron for PCP prophylaxis. continue with his home stribild, 1 tab [address]Pierre Morelos today and highly recommend IR biopsy of any lesions which may assist in diagnosis as soon as possible- R/O lymphoma. send biopsy specimen also for gram stain, cx, afb, fungal . may need endoscopic evaluation with biopsies to R/O HSV/CMV . advise to continue with empiric IV zosyn that was initiated by the primary team along with the flagyl pending further results. await result of quantiferon gold as well. await blood AFB cx. all above d/w patient at length and he verbalizes full understanding of all above.
[2017-04-25] MEDS ORDERED: Potassium Chloride 20 mEq ER Tab PO SCH (13:00)
[2017-04-25 13:24] LABS: % CD4 (T HELPER CELL) 4 Percent (30-61); % CD8 (SUPPRESSOR T CELL) 67 Percent (12-42); ABSOLUTE CD4 CELLS 17 Cells/mcL (490-1740); ABSOLUTE CD8 CELLS 253 Cells/mcL (180-1170); ABSOLUTE LYMPHOCYTES 378 Cells/mcL (850-3900); HELPER/SUPPRESSOR RATIO 0.07 Ratio (0.86-5.00)
--- NOTE | 2017-04-25 14:07 | CP.PCM.PN ---
Subjective - Date & Time of Evaluation Date of Evaluation: 04/25/17 Time of Evaluation: 09:00 - Subjective Subjective: Pt seen and examined at bedside in the am. Seen resting comfortably. States diarrhea has improved but still having loose stools x3 yesterday. Still having fever chills. Tolerating diet, good appetite. Ambulating. Objective - Vital Signs/Intake and Output Vital Signs (last 24 hours): Temp Pulse Resp BP Pulse Ox 98.0 F 62 20 118/75 99 04/25/17 11:48 04/25/17 07:54 04/25/17 07:54 04/25/17 07:54 04/25/17 07:54 - Medications Medications: Current Medications Acetaminophen (Tylenol 325mg Tab) 650 mg PO Q6 PRN PRN Reason: Fever >100.4 F Last Admin: 04/25/17 10:48 Dose: 650 mg Atovaquone (Mepron) 1,500 mg PO DAILY [facility] PRN Reason: Protocol Last Admin: 04/25/17 08:50 Dose: 1,500 mg Enoxaparin Sodium (Lovenox) 40 mg SC DAILY [facility] PRN Reason: Protocol Last Admin: 04/25/17 08:50 Dose: Not Given Home Med (Elviteg/Tayler/Emtric/Tenofo Dis [Stribild Tablet]) 1 tab PO DAILY [facility] Last Admin: 04/25/17 12:37 Dose: 1 tab Piperacillin Sod/Tazobactam (Sod 3.375 gm/ Sodium Chloride) 100 mls @ 100 mls/ hr IVPB Q6 [facility] PRN Reason: Protocol Last Admin: 04/25/17 10:49 Dose: 100 mls/hr Metronidazole (Flagyl 500mg/100ml Ns) 100 mls @ 100 mls/hr IVPB Q8 [facility] PRN Reason: Protocol Last Admin: 04/25/17 08:49 Dose: 100 mls/hr - Labs Labs: 04/25/17 06:10 04/25/17 06:10 - Constitutional Appears: Well, Non-toxic, No Acute Distress - Head Exam Head Exam: NORMAL INSPECTION - Eye Exam Eye Exam: Normal appearance - ENT Exam ENT Exam: Mucous Membranes Moist - Respiratory Exam Respiratory Exam: Clear to Ausculation Bilateral, NORMAL BREATHING PATTERN. absent: Rales, Wheezes, Stridor - Cardiovascular Exam Cardiovascular Exam: REGULAR RHYTHM, +S1, +S2. absent: Murmur - GI/Abdominal Exam GI & Abdominal Exam: Soft, Normal Bowel Sounds. absent: Distended, Guarding, Tenderness - Extremities Exam Extremities Exam: absent: Pedal Edema - Back Exam Back Exam: NORMAL INSPECTION - Neurological Exam Neurological Exam: Alert, Awake, Oriented x3 - Psychiatric Exam Psychiatric exam: Normal Mood - Skin Skin Exam: Normal Color Assessment and Plan - Assessment and Plan (Free Text) Assessment: 37 y/o male with PMHx AIDs (CD4 29) admitted for evaluation of diarrhea, unintentional weight loss, and abnormal CT scan findings. Still spiking fevers intermittently. Diarrhea improving. Biopsy when stable as per heme/onc. Plan: Echo. IR guided Biopsy when possible. 1) Fever and Tachycardia -ID Consulted-c/w Mepron, may need endocsopic biopsy with biopsy (r/u CMV,HSV). Awaiting Quantiferon Gold, and AFB Cx. c/w Zosyn and Flagyl -Still spiking fevers and having night sweats. Tmax 102 -electrolytes normal -BCx, UCx no growth -MAC blood cultures: pending -Heme/Onc-need biopsy to r/o Lymphoma, IR consult placed -Echo for today to rule out Bacterial Endocarditis 2) Acute Diarrhea in AIDS patient -Diarrhea improving -regular diet, fluids- NaCl w/ KCL -CBC: WBC 2.9, Hg 11.7, lacate: 0.7 -Stool O/P: wnl, Fecal Leuks: wnl, Stool Lipids:wnl -Stool CMV: pending -Serum CMV IgG positive, IgM negative -occult blood: negative -C diff negative 3) Abnormal CT Scan Findings -Abdominal CT: Hepatosplenogemaly, multiple low attenuation foci scattered throughout hepatic parenchyma with small foci scattered throughout splenic parenchyma, pancreatic and retroperitoneal adenopathy. Periportal LAD rule out post neoplastic lesion such as lymphoma/leukemia/metastatic. Infect/inflamm process less likely -periportal/peripancreatic and retroperitoneal adenopathy -wall thickening of cecum and at ascending colon consist with nonspecific colitis -Triple Phase Liver CT scan: Multiple hepatic masses, do not support hepatocellular carcinoma (see report) -IR consulted for IR guided Biopsy- Dr. Harris 3) AIDS -CD4: 29/7% as of 02/22/2017 -CD4: 17/4% as of 04/25/2017 -c/w Mepron as ordered for PCP ppx -c/w azithromycin as ordered for MAC ppx. Last dose on 04/22. Due for next dose on 04/30. -c/w HAART as ordered- CHRIS Boone. Pt is brining meds from home 4) Anemia of Unknown Etiology -Hb 9.1 today -occult blood - negative -iron studies/vitamin levels pending -f/u AM labs 5) Hypokalemia, resolved -3.4 today -D5 0.45 NS with 20meq K+ -Kdur 20mg ordered for today -Monitor BMP 6) Prophylaxis -Lovenox 40mg SC QD 7) Diet -regular 8) Code Status -full code
[2017-04-25] MEDS ORDERED: Anusol Suppository PR PRN (17:02)
--- NOTE | 2017-04-25 17:13 | CARD ---
APPROVED REPORT EXAM: Two-dimensional and M-mode echocardiogram with Doppler and color Doppler. Other Information Quality : GoodRhythm : Tachycardia INDICATION Infection:Subacute bacterial endocarditis 2D DIMENSIONS IVSd0.89 (0.7-1.1cm)LVDd4.48 (3.9-5.9cm) LVOT Diameter2.11 (1.8-2.4cm)PWd0.90 (0.7-1.1cm) IVSs1.27 (0.8-1.2cm)LVDs3.32 (2.5-4.0cm) FS (%) 26.0 %PWs1.31 (0.8-1.2cm) M-Mode DIMENSIONS Left Atrium (MM)3.97 (2.5-4.0cm)IVSd0.93 (0.7-1.1cm) Aortic Root3.08 (2.2-3.7cm)LVDd4.64 (4.0-5.6cm) Aortic Cusp Exc.2.13 (1.5-2.0cm)PWd1.10 (0.7-1.1cm) IVSs1.27 cmFS (%) 27 % LVDs3.37 (2.0-3.8cm)PWs1.43 cm Mitral Valve E/A ratio0.0 TDI E/Lateral E'0.0E/Medial E'0.0 LEFT VENTRICLE The left ventricle is normal in size. There is normal left ventricular wall thickness. Left ventricle systolic function is mildly impaired. The Ejection Fraction is - 50%. Generalized mild hypokinesia. Abnormal. No left ventricle thrombus noted on this study. There is no ventricular septal defect visualized. There is no left ventricular aneurysm. There is no mass noted in the left ventricle. RIGHT VENTRICLE The right ventricle is normal size. There is normal right ventricular wall thickness. The right ventricular systolic function is normal. ATRIA The left atrium size is normal. There is no thrombus suspected in the left atrium. The right atrium size is normal. The interatrial septum is intact with no evidence for an atrial septal defect. AORTIC VALVE The aortic valve is normal in structure. No aortic regurgitation is present. There is no aortic valvular stenosis. There is no aortic valvular vegetation. MITRAL VALVE The mitral valve is normal in structure. There is no evidence of mitral valve prolapse. There is no mitral valve stenosis. Mitral regurgitation is trace. TRICUSPID VALVE The tricuspid valve is normal in structure. There is trace to mild tricuspid regurgitation. There is no tricuspid valve prolapse or vegetation. There is no tricuspid valve stenosis. PULMONIC VALVE The pulmonary valve is normal in structure. There is no pulmonic valvular regurgitation. GREAT VESSELS The aortic root is normal in size. The IVC collapses <50% with inspiration. PERICARDIAL EFFUSION The pericardium appears normal. There is no pleural effusion. <Conclusion> The left ventricle is normal in size and wall thickness. Left ventricle systolic function is mildly impaired. The Ejection Fraction is - 50%. The left atrium, right ventricle and right atrium are normal in size. The mitral, aortic and tricuspid valves are normal. No valvular vegetations were seen. There is trace mitral regurgitation and trace to mild tricuspid regurgitation.
[2017-04-25] MEDS: Lactobacillus Acidophilus 500 MU Cap PO SCH (17:41)
[2017-04-25] MEDS: Meropenem 1 GM in Sodium Chloride 0.9% 100 ML IVPB SCH (18:52)
--- NOTE | 2017-04-25 18:57 | RAD ---
HISTORY: r/o pneumonia COMPARISON: 04/26/2007. FINDINGS: LUNGS: No active pulmonary disease. PLEURA: No significant pleural effusion identified, no pneumothorax apparent. CARDIOVASCULAR: Normal. OSSEOUS STRUCTURES: No significant abnormalities. VISUALIZED UPPER ABDOMEN: Normal. OTHER FINDINGS: None. IMPRESSION: No active disease. No significant interval change compared to the prior examination(s).
--- NOTE | 2017-04-25 21:16 | CT ---
EXAM: CT Chest Without Intravenous Contrast EXAM DATE/TIME: 04/25/2017 6:55 PM CLINICAL HISTORY: 37 years old, male; Signs and symptoms; Fever; Additional info: Fever of unknown etiology in aids pt TECHNIQUE: Axial computed tomography images of the chest without intravenous contrast. All CT scans at this facility use one or more dose reduction techniques, viz.: automated exposure control; ma/kV adjustment per patient size (including targeted exams where dose is matched to indication; i.e. head); or iterative reconstruction technique. Coronal and sagittal reformatted images were created and reviewed. COMPARISON: There are no prior studies for comparison. FINDINGS: Lungs and pleural spaces: Trachea and main bronchi are patent.There is no pneumothorax. Lungs are well-inflated. There is no focal consolidation. There are no effusions. Heart and vasculature: Heart size is normal. There is a very small pericardial effusion.Aorta and main pulmonary artery are normal in caliber. Mediastinum: There are multiple mildly enlarged mediastinal nodes.Robyn are not optimally evaluated without contrast material. The esophagus is not optimally evaluated. Thyroid: Thyroid is not optimally demonstrated. Bones/joints: There are no acute osseous abnormalities. Soft tissues: unremarkable Upper abdomen: The spleen is enlarged. There is adenopathy in the upper abdomen. IMPRESSION: No focal pneumonia; adenopathy and splenomegaly, infectious/inflammatory versus neoplastic
--- NOTE | 2017-04-25 22:33 | CP.PCM.PN ---
Subjective - Date & Time of Evaluation Date of Evaluation: 04/25/17 Time of Evaluation: 22:31 - Subjective Subjective: Stools still loose but feels a little better Objective - Vital Signs/Intake and Output Vital Signs (last 24 hours): Temp Pulse Resp BP Pulse Ox 99.7 F H 128 H 20 127/86 100 04/25/17 22:05 04/25/17 16:07 04/25/17 16:07 04/25/17 16:07 04/25/17 16:07 - Medications Medications: Current Medications Acetaminophen (Tylenol 325mg Tab) 650 mg PO Q6 [facility] Last Admin: 04/25/17 22:05 Dose: 650 mg Atovaquone (Mepron) 1,500 mg PO DAILY [facility] PRN Reason: Protocol Last Admin: 04/25/17 08:50 Dose: 1,500 mg Enoxaparin Sodium (Lovenox) 40 mg SC DAILY [facility] PRN Reason: Protocol Last Admin: 04/25/17 08:50 Dose: Not Given Home Med (Elviteg/Tayler/Emtric/Tenofo Dis [Stribild Tablet]) 1 tab PO DAILY [facility] Last Admin: 04/25/17 12:37 Dose: 1 tab Metronidazole (Flagyl 500mg/100ml Ns) 100 mls @ 100 mls/hr IVPB Q8 [facility] PRN Reason: Protocol Last Admin: 04/25/17 17:35 Dose: 100 mls/hr Vancomycin HCl 1 gm/ Sodium (Chloride) 250 mls @ 166.667 mls/hr IVPB Q12 [facility] PRN Reason: Protocol Last Admin: 04/25/17 21:26 Dose: 166.667 mls/hr Meropenem 1 gm/ Sodium (Chloride) 100 mls @ 100 mls/hr IVPB Q8 [facility] PRN Reason: Protocol Last Admin: 04/25/17 18:52 Dose: 100 mls/hr Lactobacillus Acidophilus (Bacid Acidophilus) 1 cap PO BID [facility] Last Admin: 04/25/17 17:41 Dose: 1 cap - Labs Labs: 04/25/17 06:10 04/25/17 06:10 - Head Exam Head Exam: ATRAUMATIC - ENT Exam ENT Exam: Normal Exam - Respiratory Exam Respiratory Exam: Clear to Ausculation Bilateral - Cardiovascular Exam Cardiovascular Exam: +S1, +S2 - GI/Abdominal Exam GI & Abdominal Exam: Soft. absent: Tenderness Assessment and Plan (1) Abdominal pain Assessment & Plan: Diarrhea continues but not excessive. So far imaging has demonstrated abnormal liver findings and would recommend biopsy. Possible endoscopy if diarrhea persists. Status: Acute
[2017-04-25 23:18] LABS: SQUAMOUS EPITHIAL < 1 /hpf (0-5); URINE BILIRUBIN NEGATIVE (NEGATIVE); URINE BLOOD NEGATIVE (NEGATIVE); URINE CLARITY SLIGHTY-CLOUDY (Clear); URINE COLOR AMBER (YELLOW); URINE GLUCOSE (UA) NEG (Normal); URINE LEUKOCYTE ESTERASE SMALL Leu/uL (Negative); URINE PROTEIN 100 mg/dL (NEGATIVE); URINE UROBILINOGEN 0.2-1.0 mg/dL (0.2-1.0)
[2017-04-26] MEDS: Meropenem 1 GM in Sodium Chloride 0.9% 100 ML IVPB SCH ×3 (00:26→17:07)
[2017-04-26] MEDS: metroNIDAZOLE 500mg/100ml NS 100 ML IVPB SCH ×3 (01:56→17:07)
[2017-04-26 06:42] LABS: HEMOGLOBIN 9.3 g/dL (12.0-18.0); MEAN CELL VOLUME 80.8 fl (80.0-94.0); MEAN CORPUSCULAR HEMOGLOBIN 27.2 pg (27.0-31.0); MEAN CORPUSCULAR HGB CONC 33.7 g/dL (33.0-37.0); RBC 3.43 Mil/uL (4.40-5.90); RED CELL DISTRIBUTION WIDTH 17.6 % (11.5-14.5)
[2017-04-26 06:58] LABS: BLOOD UREA NITROGEN 8 mg/dl (9-20); CALCIUM 8.5 mg/dL (8.4-10.2); GFR AFRICAN-AMERICAN > 60; GFR NON-AFRICAN AMERICAN > 60
[2017-04-26 06:59] LABS: INR 1.9 (0.9-1.2); PROTHROMBIN TIME 21.7 Seconds (9.8-13.1)
[2017-04-26 07:11] LABS: WHITE BLOOD COUNT 1.9 K/uL (4.8-10.8)
[2017-04-26] MEDS ORDERED: Gadodiamide 287 MG/ML VIAL (15ML) IV ONE (08:20)
--- NOTE | 2017-04-26 08:21 | CP.PCM.PN ---
Addendum entered and electronically signed by Sylvester Wild MD 04/26/17 12:51: Hepatitis Serology labs ordered Original Note: Subjective - Date & Time of Evaluation Date of Evaluation: 04/26/17 Time of Evaluation: 08:00 - Subjective Subjective: Pt seen and examined at the bedside this am. Still having diarrhea but improved from last week. + night sweats Denies any other symptoms. Objective - Vital Signs/Intake and Output Vital Signs (last 24 hours): Temp Pulse Resp BP Pulse Ox 99.4 F 108 H 20 116/72 100 04/26/17 07:54 04/26/17 07:54 04/26/17 07:54 04/26/17 07:54 04/26/17 07:54 - Medications Medications: Current Medications Acetaminophen (Tylenol 325mg Tab) 650 mg PO Q6 [facility] Last Admin: 04/26/17 04:20 Dose: 650 mg Atovaquone (Mepron) 1,500 mg PO DAILY [facility] PRN Reason: Protocol Last Admin: 04/25/17 08:50 Dose: 1,500 mg Enoxaparin Sodium (Lovenox) 40 mg SC DAILY [facility] PRN Reason: Protocol Last Admin: 04/25/17 08:50 Dose: Not Given Home Med (Elviteg/Tayler/Emtric/Tenofo Dis [Stribild Tablet]) 1 tab PO DAILY [facility] Last Admin: 04/25/17 12:37 Dose: 1 tab Metronidazole (Flagyl 500mg/100ml Ns) 100 mls @ 100 mls/hr IVPB Q8 [facility] PRN Reason: Protocol Last Admin: 04/26/17 01:56 Dose: 100 mls/hr Vancomycin HCl 1 gm/ Sodium (Chloride) 250 mls @ 166.667 mls/hr IVPB Q12 [facility] PRN Reason: Protocol Last Admin: 04/25/17 21:26 Dose: 166.667 mls/hr Meropenem 1 gm/ Sodium (Chloride) 100 mls @ 100 mls/hr IVPB Q8 [facility] PRN Reason: Protocol Last Admin: 04/26/17 00:26 Dose: 100 mls/hr Lactobacillus Acidophilus (Bacid Acidophilus) 1 cap PO BID [facility] Last Admin: 04/25/17 17:41 Dose: 1 cap - Labs Labs: 04/26/17 05:45 04/26/17 05:45 PT 21.7 Seconds (9.8-13.1) H 04/26/17 05:45 INR 1.9 (0.9-1.2) H 04/26/17 05:45 - Constitutional Appears: Well, Non-toxic, No Acute Distress - Head Exam Head Exam: NORMAL INSPECTION - Eye Exam Eye Exam: Normal appearance - ENT Exam ENT Exam: Mucous Membranes Moist - Respiratory Exam Respiratory Exam: Clear to Ausculation Bilateral. absent: Rales, Wheezes - Cardiovascular Exam Cardiovascular Exam: REGULAR RHYTHM, +S1, +S2. absent: Murmur - GI/Abdominal Exam GI & Abdominal Exam: Soft, Normal Bowel Sounds. absent: Distended, Tenderness - Extremities Exam Extremities Exam: absent: Pedal Edema - Neurological Exam Neurological Exam: Alert, Awake, Oriented x3 - Psychiatric Exam Psychiatric exam: Normal Affect - Skin Skin Exam: Normal Color Assessment and Plan - Assessment and Plan (Free Text) Assessment: Assessment: 37 y/o male with PMHx AIDs (CD4 29) admitted for evaluation of diarrhea, unintentional weight loss, and abnormal CT scan findings. Still spiking fevers intermittently. Diarrhea improving. Biopsy when stable as per heme/onc. Plan: IR Biopsy tomorrow as long as INR is <1.5 (currently 02/15). Will be transfused 2 units of FFP and started on 10mg po Vitamin K. F/U am INR 1) Fever and Tachycardia -ID Consulted-c/w Mepron, may need endocsopic biopsy with biopsy (r/u CMV,HSV). Awaiting Quantiferon Gold, and AFB Cx. -Empiric Abx coverage: Vacomycin, Meropenem, Mepron -Still spiking fevers and having night sweats. Tmax 103 last night -electrolytes normal -BCx (04/21) no growth x5 d -BCx (04/22) x 2 no growth 3 days -UCx (04/21) Gram Positive, <10k -UCx (04/22) no growth -F/U Prasad Cx studies from (04/25) -MAC blood cultures: pending -Heme/Onc-need biopsy to r/o Lymphoma, IR consult placed -Echo: No valvular vegetations seen, EF 50%, Mild hypokinesia of LV, otherwise wnl -Chest CT: Mediastinal lymphadenopathy -Brain MRI: No enhancing lesions, nonspecific non enchancing white matter changes in frontal lobe, remained wnl 2) Abnormal CT Scan Findings -Abdominal CT: Hepatosplenogemaly, multiple low attenuation foci scattered throughout hepatic parenchyma with small foci scattered throughout splenic parenchyma, pancreatic and retroperitoneal adenopathy. Periportal LAD rule out post neoplastic lesion such as lymphoma/leukemia/metastatic. Infect/inflamm process less likely -periportal/peripancreatic and retroperitoneal adenopathy -wall thickening of cecum and at ascending colon consist with nonspecific colitis -Triple Phase Liver CT scan: Multiple hepatic masses, do not support hepatocellular carcinoma (see report) -IR biopsy today pending INR reduction 3) Acute Diarrhea in AIDS patient -Diarrhea improving -regular diet, fluids- NaCl w/ KCL -CBC: WBC 2.9, Hg 11.7, lacate: 0.7 -Stool O/P: wnl, Fecal Leuks: wnl, Stool Lipids:wnl -Stool CMV: pending -Serum CMV IgG positive, IgM negative -occult blood: negative -C diff negative 4) Coagulopathy -INR 1.9 -PT 21.7 -not curretly on anticoagulant therapy -FFP x1 today -Repeat INR post transfusion 3) AIDS -CD4: 29/7% as of 02/22/2017 -CD4: 17/4% as of 04/25/2017 -c/w Mepron as ordered for PCP ppx -c/w azithromycin as ordered for MAC ppx. Last dose on 04/22. Due for next dose on 04/30. -c/w HAART as ordered- CHRIS Boone. Pt is brining meds from home 4) Anemia of Unknown Etiology -Hb 9.1 today -occult blood - negative -iron studies/vitamin levels pending -f/u AM labs 5) Hypokalemia, resolved -3.4 today -D5 0.45 NS with 20meq K+ -Kdur 20mg ordered for today -Monitor BMP 6) Prophylaxis -Lovenox 40mg SC QD 7) Diet -NPO 8) Code Status -full code
--- NOTE | 2017-04-26 09:36 | CP.PCM.PN ---
Subjective - Date & Time of Evaluation Date of Evaluation: 04/26/17 Time of Evaluation: 09:00 - Subjective Subjective: IR biopsy on hodl due to coagulopathy; for FFP Objective - Vital Signs/Intake and Output Vital Signs (last 24 hours): Temp Pulse Resp BP Pulse Ox 99.4 F 108 H 20 116/72 100 04/26/17 07:54 04/26/17 07:54 04/26/17 07:54 04/26/17 07:54 04/26/17 07:54 - Medications Medications: Current Medications Acetaminophen (Tylenol 325mg Tab) 650 mg PO Q6 [facility] Last Admin: 04/26/17 04:20 Dose: 650 mg Atovaquone (Mepron) 1,500 mg PO DAILY [facility] PRN Reason: Protocol Last Admin: 04/25/17 08:50 Dose: 1,500 mg Enoxaparin Sodium (Lovenox) 40 mg SC DAILY [facility] PRN Reason: Protocol Last Admin: 04/25/17 08:50 Dose: Not Given Home Med (Elviteg/Tayler/Emtric/Tenofo Dis [Stribild Tablet]) 1 tab PO DAILY [facility] Last Admin: 04/25/17 12:37 Dose: 1 tab Metronidazole (Flagyl 500mg/100ml Ns) 100 mls @ 100 mls/hr IVPB Q8 [facility] PRN Reason: Protocol Last Admin: 04/26/17 01:56 Dose: 100 mls/hr Vancomycin HCl 1 gm/ Sodium (Chloride) 250 mls @ 166.667 mls/hr IVPB Q12 [facility] PRN Reason: Protocol Last Admin: 04/25/17 21:26 Dose: 166.667 mls/hr Meropenem 1 gm/ Sodium (Chloride) 100 mls @ 100 mls/hr IVPB Q8 [facility] PRN Reason: Protocol Last Admin: 04/26/17 00:26 Dose: 100 mls/hr Lactobacillus Acidophilus (Bacid Acidophilus) 1 cap PO BID [facility] Last Admin: 04/25/17 17:41 Dose: 1 cap - Labs Labs: 04/26/17 05:45 04/26/17 05:45 PT 21.7 Seconds (9.8-13.1) H 04/26/17 05:45 INR 1.9 (0.9-1.2) H 04/26/17 05:45 - Head Exam Head Exam: ATRAUMATIC - Eye Exam Eye Exam: Normal appearance - ENT Exam ENT Exam: Mucous Membranes Dry - Respiratory Exam Respiratory Exam: NORMAL BREATHING PATTERN - Cardiovascular Exam Cardiovascular Exam: +S1, +S2 - GI/Abdominal Exam GI & Abdominal Exam: Normal Bowel Sounds Assessment and Plan (1) Coagulopathy Assessment & Plan: ? nutritional improved with FFP for vit K and FFP Status: Acute (2) Hepatosplenomegaly Assessment & Plan: liver and splenic lesions for IR biopsy once coagulopathy corrected Status: Acute (3) Lymphadenopathy Assessment & Plan: biopsy of most accessible lesion Status: Acute (4) Anemia Assessment & Plan: anemia of HIV and chronic disease Status: Acute (5) Leukopenia Assessment & Plan: suspect secondary to AIDS Status: Acute
[2017-04-26] MEDS: Enoxaparin 40 mg Syringe SC SCH (10:06)
--- NOTE | 2017-04-26 10:36 | US ---
HISTORY: Liver masses COMPARISON: Abdomen and pelvis CT with contrast 04/20/2017. TECHNIQUE: Sonographic evaluation of the abdomen. FINDINGS: LIVER: Measures 19.6 cm. The liver is enlarged with heterogeneous echotexture and multiple small hypoechoic lesions scattered diffusely throughout both left hepatic lobes suspicious for metastasis though other etiologies including an infectious process are not completely excluded. No definitive intrahepatic biliary dilatation. GALLBLADDER: The gallbladder is contracted however the wall measures at least 5 mm thickness. No pericholecystic fluid collection or cholelithiasis. No prominent ascites appreciated to suggest hydrops with cholecystitis not completely excluded. Clinically correlate further. COMMON BILE DUCT: Measures 2.1 mm. No stones. No dilatation. PANCREAS: Unremarkable as visualized. No mass. No ductal dilatation. RIGHT KIDNEY: Measures 12.7cm. Normal echogenicity. No calculus, mass, or hydronephrosis. LEFT KIDNEY: Measures 13.0cm. Normal echogenicity. No calculus, mass, or hydronephrosis. SPLEEN: The spleen is enlarged to 17.6 cm greatest dimension with a few small hypoechoic foci measuring up to 9 mm greatest dimension, difficult to characterize. Color Doppler blood flow was unremarkable throughout the liver with no suspicious flow related to these small foci. These may reflect the same process occurring in the liver however. AORTA: Abdominal aorta appears patent as imaged. IVC: Appears patent as imaged. OTHER FINDINGS: None. IMPRESSION: Multiple small lesions are scattered throughout the liver which is enlarged to 19.6 cm with a lesser but similar pattern in an enlarged spleen. Hepatic findings are concurrent with those seen in prior CT examinations 04/20/2017 and 04/21/2017. Splenic foci may be too small to of been imaged in the prior CT exams. Findings remain suspicious for metastatic disease though an infectious process is not completely excluded. No definitive abscess appreciated.
--- NOTE | 2017-04-26 10:55 | MRI ---
PROCEDURE: MRI BRAIN WITH AND WITHOUT CONTRAST HISTORY: Metastatic disease, liver masses COMPARISON: Unenhanced head CT 01/15/2017. TECHNIQUE: Multiplanar, multisequence MR images of the brain were obtained with and without intravenous contrast enhancement. FINDINGS: HEMORRHAGE: None DWI: No evidence of an acute or early subacute infarction. BRAIN PARENCHYMA: Good corticomedullary differentiation is appreciated throughout the parenchyma above and below the tentorium including throughout the brainstem. However, there 1 or 2 tiny subcortical long TR hyperintensities identified at the lateral frontal lobes which do not enhance and of uncertain clinical significance. The corpus callosum and remaining brain remaining white matter structures are unremarkable otherwise. There is no mass effect or suspicious extra-axial fluid collection identified. The sulci and cisterns appear normal throughout. The midline brain anatomy is unremarkable. ENHANCEMENT: No abnormal intracranial enhancement. VENTRICLES: Unremarkable. No hydrocephalus. CRANIUM: Unremarkable. ORBITS: Grossly unremarkable. PARANASAL SINUSES/MASTOIDS: Clear VASCULAR SYSTEM: Skull base flow voids intact. OTHER FINDINGS: None . IMPRESSION: Minimal nonspecific nonenhancing white matter changes are identified at the bilateral frontal subcortical white matter with remainder of the brain normal-appearing overall. No abnormal intracranial enhancement, as discussed above. No definite pattern to suggest metastatic disease to the brain. Further clinical correlation is nevertheless advised given limited white-matter findings. There is a very broad differential diagnosis with this pattern.
[2017-04-26] MEDS: Atovaquone 750 mg/5 ml Susp UD PO SCH (13:12)
[2017-04-26] MEDS: Lactobacillus Acidophilus 500 MU Cap PO SCH ×2 (13:18→17:06)
[2017-04-26] MEDS: Hydrocortisone 2.5% (Rectal) CREAM PR SCH (17:06)
[2017-04-26 20:57] LABS: HEPATITIS B SURFACE AG Negative (NEGATIVE)
[2017-04-26 21:02] LABS: HEPATITIS B CORE AB NEGATIVE (NEGATIVE)
[2017-04-27] MEDS: metroNIDAZOLE 500mg/100ml NS 100 ML IVPB SCH ×3 (00:09→16:55)
[2017-04-27] MEDS: Meropenem 1 GM in Sodium Chloride 0.9% 100 ML IVPB SCH ×3 (00:09→16:54)
[2017-04-27] MEDS ORDERED: Sodium Chloride 0.9% 1,000 ML IV SCH (00:30)
[2017-04-27 06:32] LABS: INR 1.7 (0.9-1.2); PROTHROMBIN TIME 19.1 Seconds (9.8-13.1)
[2017-04-27 06:34] LABS: HEMOGLOBIN 8.8 g/dL (12.0-18.0); MEAN CELL VOLUME 81.7 fl (80.0-94.0); MEAN CORPUSCULAR HEMOGLOBIN 26.8 pg (27.0-31.0); MEAN CORPUSCULAR HGB CONC 32.8 g/dL (33.0-37.0); RBC 3.29 Mil/uL (4.40-5.90); RED CELL DISTRIBUTION WIDTH 17.9 % (11.5-14.5)
[2017-04-27] MEDS ORDERED: Potassium Chl 20 mEq in NS 1,000 ML IV SCH (07:00)
[2017-04-27 07:11] LABS: BLOOD UREA NITROGEN 8 mg/dl (9-20); CALCIUM 8.7 mg/dL (8.4-10.2); GFR AFRICAN-AMERICAN > 60; GFR NON-AFRICAN AMERICAN > 60
--- NOTE | 2017-04-27 08:22 | CP.PCM.PN ---
Subjective - Date & Time of Evaluation Date of Evaluation: 04/27/17 Time of Evaluation: 08:00 - Subjective Subjective: Pt seen in am. Diarrhea persists but improved since admission. Tolerating diet. Objective - Vital Signs/Intake and Output Vital Signs (last 24 hours): Temp Pulse Resp BP Pulse Ox 101.1 F H 119 H 20 120/71 99 04/27/17 08:13 04/27/17 08:13 04/27/17 08:13 04/27/17 08:13 04/27/17 08:13 - Medications Medications: Current Medications Acetaminophen (Tylenol 325mg Tab) 650 mg PO Q6 [facility] Last Admin: 04/27/17 04:04 Dose: 650 mg Atovaquone (Mepron) 1,500 mg PO DAILY [facility] PRN Reason: Protocol Last Admin: 04/26/17 13:12 Dose: 1,500 mg Enoxaparin Sodium (Lovenox) 40 mg SC DAILY [facility] PRN Reason: Protocol Last Admin: 04/26/17 10:06 Dose: Not Given Home Med (Elviteg/Tayler/Emtric/Tenofo Dis [Stribild Tablet]) 1 tab PO DAILY [facility] Last Admin: 04/26/17 13:11 Dose: 1 tab Hydrocortisone (Anusol-Hc) 1 applic CA BID [facility] Last Admin: 04/26/17 17:06 Dose: 1 applic Metronidazole (Flagyl 500mg/100ml Ns) 100 mls @ 100 mls/hr IVPB Q8 [facility] PRN Reason: Protocol Last Admin: 04/27/17 00:09 Dose: 100 mls/hr Vancomycin HCl 1 gm/ Sodium (Chloride) 250 mls @ 166.667 mls/hr IVPB Q12 [facility] PRN Reason: Protocol Last Admin: 04/26/17 21:33 Dose: 166.667 mls/hr Meropenem 1 gm/ Sodium (Chloride) 100 mls @ 100 mls/hr IVPB Q8 [facility] PRN Reason: Protocol Last Admin: 04/27/17 00:09 Dose: 100 mls/hr Potassium Chloride/Sodium Chloride (Potassium Chl 20 Meq In Ns) 1,000 mls @ 100 mls/hr IV .Q10H [facility] Lactobacillus Acidophilus (Bacid Acidophilus) 1 cap PO BID [facility] Last Admin: 04/26/17 17:06 Dose: 1 cap - Labs Labs: 04/27/17 06:05 04/27/17 06:05 PT 19.1 Seconds (9.8-13.1) H 04/27/17 06:05 INR 1.7 (0.9-1.2) H 04/27/17 06:05 - Constitutional Appears: Well, Non-toxic, No Acute Distress - Head Exam Head Exam: NORMAL INSPECTION - Eye Exam Eye Exam: Normal appearance - ENT Exam ENT Exam: Mucous Membranes Moist - Respiratory Exam Respiratory Exam: Clear to Ausculation Bilateral. absent: Rales, Wheezes - Cardiovascular Exam Cardiovascular Exam: REGULAR RHYTHM, +S1, +S2. absent: Murmur - GI/Abdominal Exam GI & Abdominal Exam: Soft, Normal Bowel Sounds. absent: Distended, Tenderness - Extremities Exam Extremities Exam: Normal Inspection - Neurological Exam Neurological Exam: Alert, Awake, Oriented x3 - Psychiatric Exam Psychiatric exam: Normal Affect - Skin Skin Exam: Normal Color Assessment and Plan - Assessment and Plan (Free Text) Assessment: Assessment: 37 y/o male with PMHx AIDs (CD4 29) admitted for evaluation of diarrhea, unintentional weight loss, and abnormal CT scan findings. Still spiking fevers intermittently. Diarrhea improving. Plan: IR guided biopsy cancelled for today as pt INR was 1.7. Plan is to administer 2 FFP and IV Vitamin K, recheck INR in am for possible biopsy tomorrow. 1) Fever and Tachycardia -ID Consulted-c/w Mepron, may need endocsopic biopsy with biopsy (r/u CMV,HSV). Awaiting Quantiferon Gold, and AFB Cx. -Empiric Abx coverage: Vacomycin, Meropenem, Mepron -Still spiking fevers and having night sweats. Tmax 103 last night -electrolytes normal -BCx (04/21) no growth x5 d -BCx (04/22) x 2 no growth 3 days -UCx (04/21) Gram Positive, <10k -UCx (04/22) no growth -F/U Prasad Cx studies from (04/25) -MAC blood cultures: pending -Heme/Onc-need biopsy to r/o Lymphoma, IR consult placed -Echo: No valvular vegetations seen, EF 50%, Mild hypokinesia of LV, otherwise wnl -Chest CT: Mediastinal lymphadenopathy -Brain MRI: No enhancing lesions, nonspecific non enchancing white matter changes in frontal lobe, remained wnl 2) Abnormal CT Scan Findings -Abdominal CT: Hepatosplenogemaly, multiple low attenuation foci scattered throughout hepatic parenchyma with small foci scattered throughout splenic parenchyma, pancreatic and retroperitoneal adenopathy. Periportal LAD rule out post neoplastic lesion such as lymphoma/leukemia/metastatic. Infect/inflamm process less likely -periportal/peripancreatic and retroperitoneal adenopathy -wall thickening of cecum and at ascending colon consist with nonspecific colitis -Triple Phase Liver CT scan: Multiple hepatic masses, do not support hepatocellular carcinoma (see report) -IR biopsy pending INR reduction 3) Acute Diarrhea in AIDS patient -Diarrhea improving -regular diet, fluids- NaCl w/ KCL -CBC: WBC 2.9, Hg 11.7, lacate: 0.7 -Stool O/P: wnl, Fecal Leuks: wnl, Stool Lipids:wnl -Stool CMV: pending -Serum CMV IgG positive, IgM negative -occult blood: negative -C diff negative 4) Coagulopathy -INR 1.9 -PT 21.7 -not curretly on anticoagulant therapy -FFP x1 today -Repeat INR post transfusion 3) AIDS -CD4: 29/7% as of 02/22/2017 -CD4: 17/4% as of 04/25/2017 -c/w Mepron as ordered for PCP ppx -c/w azithromycin as ordered for MAC ppx. Last dose on 04/22. Due for next dose on 04/30. -c/w HAART as ordered- CHRIS Boone. Pt is brining meds from home 4) Anemia of Unknown Etiology -Hb 8.8 today, asymptomatic -occult blood - negative -Vitamin B12 and folate wnl -iron studies pending -f/u AM labs 5) Hypokalemia, resolved -3.6 today -D5 0.45 NS with 20meq K+ -Monitor BMP 6) Prophylaxis -Lovenox 40mg SC QD 7) Diet -Regular -NPO after midnight 8) Code Status -full code
[2017-04-27 08:26] LABS: TB ANTIGEN MINUS NIL 0.05 IU/mL
--- NOTE | 2017-04-27 08:52 | PCM.IRP ---
History of Present Illness - History of Present Illness History of Present Illness: IR consulted for image guided biopsy of liver lesions. Case reviewed and Mr. Gautam was scheduled for liver biopsy on Tuesday and today. INR is elevated and procedure is cancelled. Once the IRN is corrected and is below 1.5, we will proceed with the liver biopsy. Objective - Vital Signs/Intake and Output Vital Signs (last 24 hours): Vital Signs - 24 hr 04/26/17 04/26/17 04/26/17 10:12 11:12 13:00 Temperature 102.0 F H 98.7 F 102.1 F H Pulse Rate 120 H Respiratory 20 Rate Blood Pressure O2 Sat by Pulse 100 Oximetry 04/26/17 04/26/17 04/26/17 14:59 15:36 15:59 Temperature 102.1 F H 102.5 F H 99.1 F Pulse Rate 128 H Respiratory 20 Rate Blood Pressure 114/80 O2 Sat by Pulse 100 Oximetry 04/26/17 04/26/17 04/26/17 18:36 19:36 20:45 Temperature 102.1 F H 99.3 F 99.3 F Pulse Rate 118 H Respiratory 118 H Rate Blood Pressure 105/60 O2 Sat by Pulse 97 Oximetry 04/26/17 04/26/17 04/27/17 23:15 23:32 00:15 Temperature 102.9 F H 102.9 F H 100.2 F H Pulse Rate 120 H Respiratory 20 Rate Blood Pressure 109/59 L O2 Sat by Pulse 97 Oximetry 04/27/17 04/27/17 04/27/17 04:00 04:04 05:04 Temperature 99.6 F 99.6 F 99 F Pulse Rate 108 H Respiratory 20 Rate Blood Pressure 113/73 O2 Sat by Pulse 100 Oximetry 04/27/17 08:13 Temperature 101.1 F H Pulse Rate 119 H Respiratory 20 Rate Blood Pressure 120/71 O2 Sat by Pulse 99 Oximetry - Medications Medications: Current Medications Acetaminophen (Tylenol 325mg Tab) 650 mg PO Q6 [facility] Last Admin: 04/27/17 04:04 Dose: 650 mg Atovaquone (Mepron) 1,500 mg PO DAILY [facility] PRN Reason: Protocol Last Admin: 04/26/17 13:12 Dose: 1,500 mg Enoxaparin Sodium (Lovenox) 40 mg SC DAILY [facility] PRN Reason: Protocol Last Admin: 04/26/17 10:06 Dose: Not Given Home Med (Elviteg/Tayler/Emtric/Tenofo Dis [Stribild Tablet]) 1 tab PO DAILY [facility] Last Admin: 04/26/17 13:11 Dose: 1 tab Hydrocortisone (Anusol-Hc) 1 applic [place] BID [facility] Last Admin: 04/26/17 17:06 Dose: 1 applic Metronidazole (Flagyl 500mg/100ml Ns) 100 mls @ 100 mls/hr IVPB Q8 [facility] PRN Reason: Protocol Last Admin: 04/27/17 00:09 Dose: 100 mls/hr Vancomycin HCl 1 gm/ Sodium (Chloride) 250 mls @ 166.667 mls/hr IVPB Q12 [facility] PRN Reason: Protocol Last Admin: 04/26/17 21:33 Dose: 166.667 mls/hr Meropenem 1 gm/ Sodium (Chloride) 100 mls @ 100 mls/hr IVPB Q8 [facility] PRN Reason: Protocol Last Admin: 04/27/17 00:09 Dose: 100 mls/hr Potassium Chloride/Sodium Chloride (Potassium Chl 20 Meq In Ns) 1,000 mls @ 100 mls/hr IV .Q10H [facility] Lactobacillus Acidophilus (Bacid Acidophilus) 1 cap PO BID [facility] Last Admin: 04/26/17 17:06 Dose: 1 cap - Labs Labs (last 24 hours): Laboratory Results - last 24 hr 04/21/17 04/22/17 04/22/17 11:04 16:40 17:21 WBC RBC Hgb Hct MCV MCH MCHC RDW Plt Count PT INR Sodium Potassium Chloride Carbon Dioxide Anion Gap BUN Creatinine Est GFR ( Amer) Est GFR (Non-Af Amer) Random Glucose Calcium Stool Collect Duration 24 Stool Total Weight 26 Stool Totl Lipids, Qnt See note Stl Cyclospora species TNP Stl Cryptosporidium Ag TNP Stl Giardia Antigen C. difficile Ag & Toxin Cryptosp/Giardia Source TNP Giardia Antigen TNP Hep Bs Antigen Hep Bs Antibody Hep B Core IgM Ab Histoplasma Ab Imm Diff Negative HIV-1 RNA copies/mL HIV-1 RNA logcopies/mL HIV-1 Genotyping Isospora Exam TNP TB Test (QFT) Nil TB Test Mitogen - Nil TB Test TB - Nil TB Test (QFT) Blood Type Antibody Screen BBK History Checked 04/23/17 04/25/17 04/25/17 14:30 10:41 10:55 WBC RBC Hgb Hct MCV MCH MCHC RDW Plt Count PT INR Sodium Potassium Chloride Carbon Dioxide Anion Gap BUN Creatinine Est GFR ( Amer) Est GFR (Non-Af Amer) Random Glucose Calcium Stool Collect Duration Stool Total Weight Stool Totl Lipids, Qnt Stl Cyclospora species Stl Cryptosporidium Ag Stl Giardia Antigen C. difficile Ag & Toxin Negative Cryptosp/Giardia Source Giardia Antigen Hep Bs Antigen Hep Bs Antibody Hep B Core IgM Ab Histoplasma Ab Imm Diff HIV-1 RNA copies/mL <20 not detected HIV-1 RNA logcopies/mL <1.30 not detected HIV-1 Genotyping Isospora Exam TB Test (QFT) Nil 0.18 TB Test Mitogen - Nil 0.45 TB Test TB - Nil 0.05 TB Test (QFT) Indeterminate H Blood Type Antibody Screen BBK History Checked 04/26/17 04/26/17 04/26/17 10:36 13:02 13:02 WBC RBC Hgb Hct MCV MCH MCHC RDW Plt Count PT INR Sodium Potassium Chloride Carbon Dioxide Anion Gap BUN Creatinine Est GFR ( Amer) Est GFR (Non-Af Amer) Random Glucose Calcium Stool Collect Duration Stool Total Weight Stool Totl Lipids, Qnt Stl Cyclospora species Stl Cryptosporidium Ag Stl Giardia Antigen C. difficile Ag & Toxin Cryptosp/Giardia Source Giardia Antigen Hep Bs Antigen Negative Hep Bs Antibody Negative Hep B Core IgM Ab Negative Histoplasma Ab Imm Diff HIV-1 RNA copies/mL HIV-1 RNA logcopies/mL HIV-1 Genotyping Isospora Exam TB Test (QFT) Nil TB Test Mitogen - Nil TB Test TB - Nil TB Test (QFT) Blood Type O POSITIVE Antibody Screen Negative BBK History Checked Patient has bt 04/27/17 04/27/17 04/27/17 06:05 06:05 06:05 WBC 2.0 L* RBC 3.29 L Hgb 8.8 L Hct 26.9 L MCV 81.7 MCH 26.8 L MCHC 32.8 L RDW 17.9 H Plt Count 133 PT 19.1 H INR 1.7 H Sodium 138 Potassium 3.6 Chloride 102 Carbon Dioxide 26 Anion Gap 14 BUN 8 L Creatinine 0.5 L Est GFR ( Amer) > 60 Est GFR (Non-Af Amer) > 60 Random Glucose 120 H Calcium 8.7 Stool Collect Duration Stool Total Weight Stool Totl Lipids, Qnt Stl Cyclospora species Stl Cryptosporidium Ag Stl Giardia Antigen C. difficile Ag & Toxin Cryptosp/Giardia Source Giardia Antigen Hep Bs Antigen Hep Bs Antibody Hep B Core IgM Ab Histoplasma Ab Imm Diff HIV-1 RNA copies/mL HIV-1 RNA logcopies/mL HIV-1 Genotyping Isospora Exam TB Test (QFT) Nil TB Test Mitogen - Nil TB Test TB - Nil TB Test (QFT) Blood Type Antibody Screen BBK History Checked
[2017-04-27] MEDS: Hydrocortisone 2.5% (Rectal) CREAM PR SCH ×2 (08:53→16:27)
[2017-04-27] MEDS: Lactobacillus Acidophilus 500 MU Cap PO SCH ×3 (09:02→16:26)
[2017-04-27] MEDS: Atovaquone 750 mg/5 ml Susp UD PO SCH ×2 (09:03→10:30)
[2017-04-27] MEDS ORDERED: Phytonadione 10 mg/ml Inj (Adult) IV ONE (09:51)
[2017-04-27] MEDS ORDERED: Phytonadione 10 MG in Sodium Chloride 0.9% 50 ML IV ONE (10:30)
--- NOTE | 2017-04-27 10:59 | CP.PCM.PN ---
Subjective - Date & Time of Evaluation Date of Evaluation: 04/27/17 Time of Evaluation: 12:00 - Subjective Subjective: ID Note- Pt. seen and examined today. pt. states today so far no diarrhea. denies any abd. pain, has temp spikes but less yesterday and today so far. awaiting liver lesions bx by IR. Objective - Vital Signs/Intake and Output Vital Signs (last 24 hours): Temp Pulse Resp BP Pulse Ox 101.1 F H 119 H 20 120/71 99 04/27/17 09:02 04/27/17 08:13 04/27/17 08:13 04/27/17 08:13 04/27/17 08:13 - Medications Medications: Current Medications Acetaminophen (Tylenol 325mg Tab) 650 mg PO Q6 REPLACED BY [facility] Last Admin: 04/27/17 09:02 Dose: 650 mg Atovaquone (Mepron) 1,500 mg PO DAILY [facility]PL[facility] BY [facility] PRN Reason: Protocol Last Admin: 04/27/17 09:03 Dose: Not Given Enoxaparin Sodium (Lovenox) 40 mg SC DAILY [facility] PRN Reason: Protocol Last Admin: 04/26/17 10:06 Dose: Not Given Home Med (Elviteg/Tayler/Emtric/Tenofo Dis [Stribild Tablet]) 1 tab PO DAILY REPLACED BY [facility] Last Admin: 04/27/17 09:03 Dose: Not Given Hydrocortisone (Anusol-Hc) 1 applic LA BID REPLACED BY [facility] Last Admin: 04/27/17 08:53 Dose: 1 applic Metronidazole (Flagyl 500mg/100ml Ns) 100 mls @ 100 mls/hr IVPB Q8 [facility] PRN Reason: Protocol Last Admin: 04/27/17 08:54 Dose: 100 mls/hr Vancomycin HCl 1 gm/ Sodium (Chloride) 250 mls @ 166.667 mls/hr IVPB Q12 [facility] PRN Reason: Protocol Last Admin: 04/26/17 21:33 Dose: 166.667 mls/hr Meropenem 1 gm/ Sodium (Chloride) 100 mls @ 100 mls/hr IVPB Q8 [facility] PRN Reason: Protocol Last Admin: 04/27/17 08:57 Dose: 100 mls/hr Potassium Chloride/Sodium Chloride (Potassium Chl 20 Meq In Ns) 1,000 mls @ 100 mls/hr IV .Q10H REPLACED BY [facility] Lactobacillus Acidophilus (Bacid Acidophilus) 1 cap PO BID [facility] Last Admin: 04/27/17 09:02 Dose: Not Given - Labs Labs: - Additional Findings Additional findings: - Constitutional Appears: No Acute Distress - Head Exam Head Exam: ATRAUMATIC - Eye Exam Eye Exam: EOMI, PERRL - ENT Exam ENT Exam: Normal Oropharynx - Neck Exam Neck exam: Positive for: Full Rom - Respiratory Exam Respiratory Exam: Clear to Auscultation Bilateral, NORMAL BREATHING PATTERN - Cardiovascular Exam Cardiovascular Exam: RRR, +S1, +S2 - GI/Abdominal Exam Additional comments: somewhat distended soft No tenderness to palpation + bowel sounds No guarding No rebound - Extremities Exam Extremities exam: Positive for: normal inspection - Neurological Exam Neurological exam: Alert, Oriented x 3 Laboratory Results - last 72 hr 04/21/17 04/22/17 04/22/17 11:04 06:00 16:40 WBC RBC Hgb Hct MCV MCH MCHC RDW Plt Count PT INR Sodium Potassium Chloride Carbon Dioxide Anion Gap BUN Creatinine Est GFR ( Amer) Est GFR (Non-Af Amer) Random Glucose Calcium Folate Procalcitonin Urine Color Urine Clarity Urine pH Ur Specific Ridge Urine Protein Urine Glucose (UA) Urine Ketones Urine Blood Urine Nitrate Urine Bilirubin Urine Urobilinogen Ur Leukocyte Esterase Urine RBC (Auto) Urine Microscopic WBC Ur Squamous Epith Cells Stool Collect Duration 24 Stool Total Weight 26 Stool Totl Lipids, Qnt See note Stool Occult Blood Stl Cyclospora species TNP Stl Cryptosporidium Ag TNP Stl Giardia Antigen Absolute Lymphs (Flow) % CD4 Cells Absolute CD4 Count T-Help/Suppress Ratio % CD8 Cells Absolute CD8 Count C. difficile Ag & Toxin Cryptosp/Giardia Source TNP CMV IgG Ab >10.00 H CMV IgM Ab <30.00 Giardia Antigen TNP Hep Bs Antigen Hep Bs Antibody Hep B Core IgM Ab Hepatitis C Antibody Hep C Ab Signal/Cutoff Histoplasma Ab Imm Diff HIV-1 RNA copies/mL HIV-1 RNA logcopies/mL HIV-1 Genotyping Isospora Exam TNP TB Test (QFT) Nil TB Test Mitogen - Nil TB Test TB - Nil TB Test (QFT) Blood Type Antibody Screen BBK History Checked 04/22/17 04/23/17 04/23/17 17:21 03:30 14:30 WBC RBC Hgb Hct MCV MCH MCHC RDW Plt Count PT INR Sodium Potassium Chloride Carbon Dioxide Anion Gap BUN Creatinine Est GFR ( Amer) Est GFR (Non-Af Amer) Random Glucose Calcium Folate Procalcitonin Urine Color Urine Clarity Urine pH Ur Specific Ridge Urine Protein Urine Glucose (UA) Urine Ketones Urine Blood Urine Nitrate Urine Bilirubin Urine Urobilinogen Ur Leukocyte Esterase Urine RBC (Auto) Urine Microscopic WBC Ur Squamous Epith Cells Stool Collect Duration Stool Total Weight Stool Totl Lipids, Qnt Stool Occult Blood Negative Stl Cyclospora species Stl Cryptosporidium Ag Stl Giardia Antigen Absolute Lymphs (Flow) 378 L % CD4 Cells 4 L Absolute CD4 Count 17 L T-Help/Suppress Ratio 0.07 L % CD8 Cells 67 H Absolute CD8 Count 253 C. difficile Ag & Toxin Cryptosp/Giardia Source CMV IgG Ab CMV IgM Ab Giardia Antigen Hep Bs Antigen Hep Bs Antibody Hep B Core IgM Ab Hepatitis C Antibody Hep C Ab Signal/Cutoff Histoplasma Ab Imm Diff Negative HIV-1 RNA copies/mL HIV-1 RNA logcopies/mL HIV-1 Genotyping Isospora Exam TB Test (QFT) Nil TB Test Mitogen - Nil TB Test TB - Nil TB Test (QFT) Blood Type Antibody Screen BBK History Checked 04/23/17 04/24/17 04/25/17 14:30 05:30 06:10 WBC 2.0 L* RBC 3.41 L Hgb 9.2 L Hct 28.0 L MCV 82.0 MCH 27.1 MCHC 33.0 RDW 17.3 H Plt Count 131 PT INR Sodium Potassium Chloride Carbon Dioxide Anion Gap BUN Creatinine Est GFR ( Amer) Est GFR (Non-Af Amer) Random Glucose Calcium Folate 8.6 Procalcitonin Urine Color Urine Clarity Urine pH Ur Specific Ridge Urine Protein Urine Glucose (UA) Urine Ketones Urine Blood Urine Nitrate Urine Bilirubin Urine Urobilinogen Ur Leukocyte Esterase Urine RBC (Auto) Urine Microscopic WBC Ur Squamous Epith Cells Stool Collect Duration Stool Total Weight Stool Totl Lipids, Qnt Stool Occult Blood Stl Cyclospora species Stl Cryptosporidium Ag Stl Giardia Antigen Absolute Lymphs (Flow) % CD4 Cells Absolute CD4 Count T-Help/Suppress Ratio % CD8 Cells Absolute CD8 Count C. difficile Ag & Toxin Cryptosp/Giardia Source CMV IgG Ab CMV IgM Ab Giardia Antigen Hep Bs Antigen Hep Bs Antibody Hep B Core IgM Ab Hepatitis C Antibody Hep C Ab Signal/Cutoff Histoplasma Ab Imm Diff HIV-1 RNA copies/mL <20 not detected HIV-1 RNA logcopies/mL <1.30 not detected HIV-1 Genotyping Isospora Exam TB Test (QFT) Nil TB Test Mitogen - Nil TB Test TB - Nil TB Test (QFT) Blood Type Antibody Screen BBK History Checked 04/25/17 04/25/17 04/25/17 06:10 10:41 10:55 WBC RBC Hgb Hct MCV MCH MCHC RDW Plt Count PT INR Sodium 137 Potassium 3.4 L Chloride 100 Carbon Dioxide 25 Anion Gap 15 BUN 6 L Creatinine 0.6 L Est GFR ( Amer) > 60 Est GFR (Non-Af Amer) > 60 Random Glucose 101 Calcium 8.5 Folate Procalcitonin Urine Color Urine Clarity Urine pH Ur Specific Ridge Urine Protein Urine Glucose (UA) Urine Ketones Urine Blood Urine Nitrate Urine Bilirubin Urine Urobilinogen Ur Leukocyte Esterase Urine RBC (Auto) Urine Microscopic WBC Ur Squamous Epith Cells Stool Collect Duration Stool Total Weight Stool Totl Lipids, Qnt Stool Occult Blood Stl Cyclospora species Stl Cryptosporidium Ag Stl Giardia Antigen Absolute Lymphs (Flow) % CD4 Cells Absolute CD4 Count T-Help/Suppress Ratio % CD8 Cells Absolute CD8 Count C. difficile Ag & Toxin Negative Cryptosp/Giardia Source CMV IgG Ab CMV IgM Ab Giardia Antigen Hep Bs Antigen Hep Bs Antibody Hep B Core IgM Ab Hepatitis C Antibody Hep C Ab Signal/Cutoff Histoplasma Ab Imm Diff HIV-1 RNA copies/mL HIV-1 RNA logcopies/mL HIV-1 Genotyping Isospora Exam TB Test (QFT) Nil 0.18 TB Test Mitogen - Nil 0.45 TB Test TB - Nil 0.05 TB Test (QFT) Indeterminate H Blood Type Antibody Screen BBK History Checked 04/25/17 04/26/17 04/26/17 22:59 05:45 05:45 WBC 1.9 L* RBC 3.43 L Hgb 9.3 L Hct 27.7 L MCV 80.8 MCH 27.2 MCHC 33.7 RDW 17.6 H Plt Count 132 PT INR Sodium 136 Potassium 3.5 L Chloride 100 Carbon Dioxide 26 Anion Gap 14 BUN 8 L Creatinine 0.6 L Est GFR ( Amer) > 60 Est GFR (Non-Af Amer) > 60 Random Glucose 110 Calcium 8.5 Folate Procalcitonin Urine Color [place] Urine Clarity Slighty-cloudy Urine pH 5.0 Ur Specific Ridge 1.039 H Urine Protein 100 Urine Glucose (UA) Neg Urine Ketones Negative Urine Blood Negative Urine Nitrate Negative Urine Bilirubin Negative Urine Urobilinogen 0.2-1.0 Ur Leukocyte Esterase Small Urine RBC (Auto) 37 H Urine Microscopic WBC 1 Ur Squamous Epith Cells < 1 Stool Collect Duration Stool Total Weight Stool Totl Lipids, Qnt Stool Occult Blood Stl Cyclospora species Stl Cryptosporidium Ag Stl Giardia Antigen Absolute Lymphs (Flow) % CD4 Cells Absolute CD4 Count T-Help/Suppress Ratio % CD8 Cells Absolute CD8 Count C. difficile Ag & Toxin Cryptosp/Giardia Source CMV IgG Ab CMV IgM Ab Giardia Antigen Hep Bs Antigen Hep Bs Antibody Hep B Core IgM Ab Hepatitis C Antibody Hep C Ab Signal/Cutoff Histoplasma Ab Imm Diff HIV-1 RNA copies/mL HIV-1 RNA logcopies/mL HIV-1 Genotyping Isospora Exam TB Test (QFT) Nil TB Test Mitogen - Nil TB Test TB - Nil TB Test (QFT) Blood Type Antibody Screen BBK History Checked 04/26/17 04/26/17 04/26/17 05:45 10:36 13:02 WBC RBC Hgb Hct MCV MCH MCHC RDW Plt Count PT 21.7 H INR 1.9 H Sodium Potassium Chloride Carbon Dioxide Anion Gap BUN Creatinine Est GFR ( Amer) Est GFR (Non-Af Amer) Random Glucose Calcium Folate Procalcitonin Urine Color Urine Clarity Urine pH Ur Specific Ridge Urine Protein Urine Glucose (UA) Urine Ketones Urine Blood Urine Nitrate Urine Bilirubin Urine Urobilinogen Ur Leukocyte Esterase Urine RBC (Auto) Urine Microscopic WBC Ur Squamous Epith Cells Stool Collect Duration Stool Total Weight Stool Totl Lipids, Qnt Stool Occult Blood Stl Cyclospora species Stl Cryptosporidium Ag Stl Giardia Antigen Absolute Lymphs (Flow) % CD4 Cells Absolute CD4 Count T-Help/Suppress Ratio % CD8 Cells Absolute CD8 Count C. difficile Ag & Toxin Cryptosp/Giardia Source CMV IgG Ab CMV IgM Ab Giardia Antigen Hep Bs Antigen Negative Hep Bs Antibody Hep B Core IgM Ab Negative Hepatitis C Antibody Hep C Ab Signal/Cutoff Histoplasma Ab Imm Diff HIV-1 RNA copies/mL HIV-1 RNA logcopies/mL HIV-1 Genotyping Isospora Exam TB Test (QFT) Nil TB Test Mitogen - Nil TB Test TB - Nil TB Test (QFT) Blood Type O POSITIVE Antibody Screen Negative BBK History Checked Patient has bt 04/26/17 04/26/17 04/27/17 13:02 13:02 06:05 WBC 2.0 L* RBC 3.29 L Hgb 8.8 L Hct 26.9 L MCV 81.7 MCH 26.8 L MCHC 32.8 L RDW 17.9 H Plt Count 133 PT INR Sodium Potassium Chloride Carbon Dioxide Anion Gap BUN Creatinine Est GFR ( Amer) Est GFR (Non-Af Amer) Random Glucose Calcium Folate Procalcitonin Urine Color Urine Clarity Urine pH Ur Specific Ridge Urine Protein Urine Glucose (UA) Urine Ketones Urine Blood Urine Nitrate Urine Bilirubin Urine Urobilinogen Ur Leukocyte Esterase Urine RBC (Auto) Urine Microscopic WBC Ur Squamous Epith Cells Stool Collect Duration Stool Total Weight Stool Totl Lipids, Qnt Stool Occult Blood Stl Cyclospora species Stl Cryptosporidium Ag Stl Giardia Antigen Absolute Lymphs (Flow) % CD4 Cells Absolute CD4 Count T-Help/Suppress Ratio % CD8 Cells Absolute CD8 Count C. difficile Ag & Toxin Cryptosp/Giardia Source CMV IgG Ab CMV IgM Ab Giardia Antigen Hep Bs Antigen Hep Bs Antibody Negative Hep B Core IgM Ab Hepatitis C Antibody Non reactive Hep C Ab Signal/Cutoff 0.05 Histoplasma Ab Imm Diff HIV-1 RNA copies/mL HIV-1 RNA logcopies/mL HIV-1 Genotyping Isospora Exam TB Test (QFT) Nil TB Test Mitogen - Nil TB Test TB - Nil TB Test (QFT) Blood Type Antibody Screen BBK History Checked 04/27/17 04/27/17 04/27/17 06:05 06:05 06:05 WBC RBC Hgb Hct MCV MCH MCHC RDW Plt Count PT 19.1 H INR 1.7 H Sodium 138 Potassium 3.6 Chloride 102 Carbon Dioxide 26 Anion Gap 14 BUN 8 L Creatinine 0.5 L Est GFR ( Amer) > 60 Est GFR (Non-Af Amer) > 60 Random Glucose 120 H Calcium 8.7 Folate Procalcitonin 0.58 H Urine Color Urine Clarity Urine pH Ur Specific Ridge Urine Protein Urine Glucose (UA) Urine Ketones Urine Blood Urine Nitrate Urine Bilirubin Urine Urobilinogen Ur Leukocyte Esterase Urine RBC (Auto) Urine Microscopic WBC Ur Squamous Epith Cells Stool Collect Duration Stool Total Weight Stool Totl Lipids, Qnt Stool Occult Blood Stl Cyclospora species Stl Cryptosporidium Ag Stl Giardia Antigen Absolute Lymphs (Flow) % CD4 Cells Absolute CD4 Count T-Help/Suppress Ratio % CD8 Cells Absolute CD8 Count C. difficile Ag & Toxin Cryptosp/Giardia Source CMV IgG Ab CMV IgM Ab Giardia Antigen Hep Bs Antigen Hep Bs Antibody Hep B Core IgM Ab Hepatitis C Antibody Hep C Ab Signal/Cutoff Histoplasma Ab Imm Diff HIV-1 RNA copies/mL HIV-1 RNA logcopies/mL HIV-1 Genotyping Isospora Exam TB Test (QFT) Nil TB Test Mitogen - Nil TB Test TB - Nil TB Test (QFT) Blood Type Antibody Screen BBK History Checked Microbiology 04/25/17 13:24 Blood-Venous Blood Culture - Preliminary NO GROWTH AFTER 48 HOURS 04/25/17 13:14 Blood-Venous Blood Culture - Preliminary NO GROWTH AFTER 48 HOURS 04/25/17 08:49 Urine,Clean Catch Urine Culture - Final No Growth (<1,000 CFU/ML) 04/22/17 08:58 Blood-Venous Blood Culture - Final NO GROWTH AFTER 5 DAYS 04/22/17 08:58 Blood-Venous Gram Stain - Final TEST NOT PERFORMED 04/22/17 08:58 Blood-Venous Blood Culture - Final NO GROWTH AFTER 5 DAYS 04/22/17 08:58 Blood-Venous Gram Stain - Final TEST NOT PERFORMED 04/20/17 18:15 Blood Blood Culture - Final NO GROWTH AFTER 5 DAYS 04/20/17 18:15 Blood Gram Stain - Final TEST NOT PERFORMED 04/22/17 18:00 Urine,Clean Catch Urine Culture - Final No Growth (<1,000 CFU/ML) 04/21/17 07:59 Urine Urine Culture - Final Gram Positive Cocci 04/21/17 11:04 Stool Stool Culture - Final NO SALMONELLA, SHIGELLA OR CAMPYLOBACTER ISOLATED. 04/21/17 11:04 Stool Ova and Parasite Concentrate Exam - Final 04/21/17 10:15 Other: Please Indicate Mycobacterial Culture - Preliminary Assessment and Plan (1) Hepatosplenomegaly Status: Acute (2) Leukopenia Status: Acute (3) HIV disease Status: Acute (4) Diarrhea Status: Acute (5) Weight loss Status: Acute - Assessment and Plan (Free Text) Assessment: A/P- 37 y/o male with HIV/AIDS admitted with diarrhea and fever. still spiking tems but t-max lower diarrhea none today so far. blood cx- neg x 5 stool cx- neg stool ova and parasite- neg UA- trace LE and urine cx- <10,000 GPC stool c.diff- negative repeat urine cx- negative TTE- no vegetations as per report. chest Ct- no pulmonary findings as per report by radiologits. brain MRI- some nonspecific white matter changes as per report. Vl- undetectable Cd4- 17 Plan: continue with zithromax 1200 mg once a week for MAC prophylaxis. continue with mepron for PCP prophylaxis. continue with his home stribild, 1 tab daily. Await IR guided biopsy of any lesions which may assist in diagnosis as soon as possible- R/O lymphoma. send biopsy specimen also for gram stain, cx, AFB ,fungal . may need endoscopic evaluation with biopsies to R/O HSV/CMV . continues to spike fever of 102.9 despite being on very broad specrum antibiotics. all blood, stool and urine cx are negative. CT- negative for any abscess , liver lesion and splenomegaly present. fevers are most likely secondary to malignancy vs perhaps drug fever vs opportinisitc pathogen that can only be identified by tissue specimen such as CMV, AFb vs entameba . at this time advise to hold iV abx and monitor the temp off IV abx. await liver lesion biopsy r/o AFB vs malignancy . change metrfonidazole to 500 mg po q8 hours . await blood AFB cx. check bartonella serology as well. cryptosporiduium and micrsporidium and E.Histolytica results still pending. all above d/w patient at length and he verbalizes full understanding of all above.
[2017-04-27] MEDS: Enoxaparin 40 mg Syringe SC SCH (11:15)
--- NOTE | 2017-04-27 18:52 | CP.PCM.PN ---
Subjective - Date & Time of Evaluation Date of Evaluation: 04/25/17 Time of Evaluation: 20:00 - Subjective Subjective: Having some chills. Objective - Vital Signs/Intake and Output Vital Signs (last 24 hours): Temp Pulse Resp BP Pulse Ox 97.8 F 107 H 18 110/71 99 04/27/17 17:00 04/27/17 17:00 04/27/17 17:00 04/27/17 17:00 04/27/17 17:00 - Medications Medications: Current Medications Acetaminophen (Tylenol 325mg Tab) 650 mg PO Q6 [facility] Last Admin: 04/27/17 15:45 Dose: 650 mg Atovaquone (Mepron) 1,500 mg PO DAILY [facility] PRN Reason: Protocol Last Admin: 04/27/17 10:30 Dose: 1,500 mg Enoxaparin Sodium (Lovenox) 40 mg SC DAILY [facility] PRN Reason: Protocol Last Admin: 04/27/17 11:15 Dose: Not Given Home Med (Elviteg/Tayler/Emtric/Tenofo Dis [Stribild Tablet]) 1 tab PO DAILY [facility] Last Admin: 04/27/17 10:30 Dose: 1 tab Hydrocortisone (Anusol-Hc) 1 applic [place] BID [facility] Last Admin: 04/27/17 16:27 Dose: 1 applic Potassium Chloride/Sodium Chloride (Potassium Chl 20 Meq In Ns) 1,000 mls @ 100 mls/hr IV .Q10H [facility] Last Admin: 04/27/17 11:13 Dose: 100 mls/hr Ibuprofen (Motrin Tab) 600 mg PO Q4 PRN PRN Reason: Fever >100.4 F Last Admin: 04/27/17 14:38 Dose: 600 mg Lactobacillus Acidophilus (Bacid Acidophilus) 1 cap PO BID [facility] Last Admin: 04/27/17 16:26 Dose: 1 cap Metronidazole (Flagyl) 500 mg PO Q8 [facility] PRN Reason: Protocol - Labs Labs: 04/27/17 06:05 04/27/17 06:05 PT 19.1 Seconds (9.8-13.1) H 04/27/17 06:05 INR 1.7 (0.9-1.2) H 04/27/17 06:05 - Head Exam Head Exam: ATRAUMATIC - Eye Exam Eye Exam: Normal appearance - ENT Exam ENT Exam: Mucous Membranes Dry - Respiratory Exam Respiratory Exam: NORMAL BREATHING PATTERN - Cardiovascular Exam Cardiovascular Exam: +S1, +S2 - GI/Abdominal Exam GI & Abdominal Exam: Normal Bowel Sounds Assessment and Plan (1) Hepatosplenomegaly Assessment & Plan: ? 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
[2017-04-27 21:18] LABS: INR 1.6 (0.9-1.2); PROTHROMBIN TIME 18.2 Seconds (9.8-13.1)
[2017-04-28] MEDS ORDERED: Lactated Ringer's 1,000 ML IV SCH (01:00)
[2017-04-28] MEDS ORDERED: Phytonadione 10 mg/ml Inj (Adult) IV ONE (06:38)
[2017-04-28] MEDS ORDERED: Phytonadione 10 MG in Sodium Chloride 0.9% 50 ML IV ONE (06:45)
[2017-04-28] MEDS ORDERED: Phytonadione 10 mg/ml Inj (Adult) IV STA (06:50)
[2017-04-28 07:06] LABS: HEMOGLOBIN 9.3 g/dL (12.0-18.0); MEAN CELL VOLUME 81.4 fl (80.0-94.0); MEAN CORPUSCULAR HEMOGLOBIN 27.1 pg (27.0-31.0); MEAN CORPUSCULAR HGB CONC 33.2 g/dL (33.0-37.0); RBC 3.44 Mil/uL (4.40-5.90); RED CELL DISTRIBUTION WIDTH 17.7 % (11.5-14.5); WHITE BLOOD COUNT 2.1 K/uL (4.8-10.8)
[2017-04-28 07:15] LABS: BLOOD UREA NITROGEN 10 mg/dl (9-20); CALCIUM 9.3 mg/dL (8.4-10.2); GFR AFRICAN-AMERICAN > 60; GFR NON-AFRICAN AMERICAN > 60
[2017-04-28] MEDS: Hydrocortisone 2.5% (Rectal) CREAM PR SCH ×2 (09:13→16:50)
[2017-04-28] MEDS: Atovaquone 750 mg/5 ml Susp UD PO SCH ×2 (10:27→15:19)
[2017-04-28] MEDS: Lactobacillus Acidophilus 500 MU Cap PO SCH ×2 (10:27→16:53)
--- NOTE | 2017-04-28 10:33 | CP.PCM.PN ---
Subjective - Date & Time of Evaluation Date of Evaluation: 04/28/17 Time of Evaluation: 08:00 - Subjective Subjective: Still spiking fevers overnight. Pt seen and evaluated in the am. Reports that diarrhea has improved. Tolerates diet. Objective - Vital Signs/Intake and Output Vital Signs (last 24 hours): Temp Pulse Resp BP Pulse Ox 102.4 F H 90 20 125/84 97 04/28/17 09:33 04/28/17 08:05 04/28/17 08:05 04/28/17 08:05 04/28/17 08:05 - Medications Medications: Current Medications Acetaminophen (Tylenol 325mg Tab) 650 mg PO Q6 [facility] Last Admin: 04/28/17 09:33 Dose: 650 mg Atovaquone (Mepron) 1,500 mg PO DAILY [facility] PRN Reason: Protocol Last Admin: 04/28/17 10:27 Dose: Not Given Enoxaparin Sodium (Lovenox) 40 mg SC DAILY [facility] PRN Reason: Protocol Last Admin: 04/27/17 11:15 Dose: Not Given Home Med (Elviteg/Tayler/Emtric/Tenofo Dis [Stribild Tablet]) 1 tab PO DAILY [facility] Last Admin: 04/28/17 10:27 Dose: Not Given Hydrocortisone (Anusol-Hc) 1 applic [place] BID [facility] Last Admin: 04/28/17 09:13 Dose: Not Given Potassium Chloride/Sodium Chloride (Potassium Chl 20 Meq In Ns) 1,000 mls @ 100 mls/hr IV .Q10H [facility] Last Admin: 04/27/17 11:13 Dose: 100 mls/hr Ibuprofen (Motrin Tab) 600 mg PO Q4 PRN PRN Reason: Fever >100.4 F Last Admin: 04/27/17 14:38 Dose: 600 mg Lactobacillus Acidophilus (Bacid Acidophilus) 1 cap PO BID [facility] Last Admin: 04/28/17 10:27 Dose: Not Given Metronidazole (Flagyl) 500 mg PO Q8 [facility] PRN Reason: Protocol Last Admin: 04/28/17 00:22 Dose: 500 mg - Labs Labs: 04/28/17 06:15 04/28/17 06:15 PT 18.2 Seconds (9.8-13.1) H 04/27/17 20:45 INR 1.6 (0.9-1.2) H 04/27/17 20:45 - Constitutional Appears: Well, Non-toxic, No Acute Distress - Head Exam Head Exam: NORMAL INSPECTION - Eye Exam Eye Exam: Normal appearance - ENT Exam ENT Exam: Mucous Membranes Moist - Respiratory Exam Respiratory Exam: Clear to Ausculation Bilateral. absent: Rales, Wheezes - Cardiovascular Exam Cardiovascular Exam: REGULAR RHYTHM, +S1, +S2. absent: Murmur - GI/Abdominal Exam GI & Abdominal Exam: Soft, Normal Bowel Sounds, Organomegaly (Hepatomegaly). absent: Distended, Tenderness - Neurological Exam Neurological Exam: Alert, Awake, Oriented x3 - Psychiatric Exam Psychiatric exam: Normal Mood - Skin Skin Exam: Normal Color Assessment and Plan - Assessment and Plan (Free Text) Assessment: Assessment: 37 y/o male with PMHx AIDs (CD4 29) admitted for evaluation of diarrhea, unintentional weight loss, and abnormal CT scan findings. Still spiking fevers intermittently. Diarrhea improving. Plan: IR guided biopy completed (INR 1/6 this morning, 1 unit FFP and IV Vitamin K given). Diarrhea improving. I spoke with lab department today with regards to send out labs that have been reported as TNP (test not performed). The lab softlines supervisor stated she would call the outside lab to find out what the issue with the specimen was. Labs have been resent. Will follow up closely. 1) Fever and Tachycardia -ID Consulted-c/w Mepron, may need endocsopic biopsy with biopsy (r/u CMV,HSV). Awaiting Quantiferon Gold, and AFB Cx. -Empiric Abx coverage: Vacomycin, Meropenem, Mepron -Still spiking fevers and having night sweats. Tmax 103 last night -electrolytes normal -BCx (04/21) no growth x5 d -BCx (04/22) x 2 no growth 3 days -UCx (04/21) Gram Positive, <10k -UCx (04/22) no growth -F/U Prasad Cx studies from (04/25) -MAC blood cultures: pending -Heme/Onc-need biopsy to r/o Lymphoma, IR consult placed -Echo: No valvular vegetations seen, EF 50%, Mild hypokinesia of LV, otherwise wnl -Chest CT: Mediastinal lymphadenopathy -Brain MRI: No enhancing lesions, nonspecific non enhancing white matter changes in frontal lobe, remained wnl 2) Abnormal CT Scan Findings -Abdominal CT: Hepatosplenogemaly, multiple low attenuation foci scattered throughout hepatic parenchyma with small foci scattered throughout splenic parenchyma, pancreatic and retroperitoneal adenopathy. Periportal LAD rule out post neoplastic lesion such as lymphoma/leukemia/metastatic. Infect/inflamm process less likely -periportal/peripancreatic and retroperitoneal adenopathy -wall thickening of cecum and at ascending colon consist with nonspecific colitis -Triple Phase Liver CT scan: Multiple hepatic masses, do not support hepatocellular carcinoma (see report) -IR biopsy pending INR reduction 3) Acute Diarrhea in AIDS patient -Diarrhea improving -regular diet, fluids- NaCl w/ KCL -CBC: WBC 2.9, Hg 11.7, lacate: 0.7 -Stool O/P: wnl, Fecal Leuks: wnl, Stool Lipids:wnl -Stool CMV: pending -Serum CMV IgG positive, IgM negative -occult blood: negative -C diff negative 4) Coagulopathy -INR 1.9 -PT 21.7 -not curretly on anticoagulant therapy -FFP x1 today -Repeat INR post transfusion 3) AIDS -CD4: 29/7% as of 02/22/2017 -CD4: 17/4% as of 04/25/2017 -c/w Mepron as ordered for PCP ppx -c/w azithromycin as ordered for MAC ppx. Last dose on 04/22. Due for next dose on 04/30. -c/w HAART as ordered- [facility]. Pt is brining meds from home 4) Anemia of Unknown Etiology -Hb 8.8 today, asymptomatic -occult blood - negative -Vitamin B12 and folate wnl -iron studies pending -f/u AM labs 5) Hypokalemia, resolved -3.6 today -D5 0.45 NS with 20meq K+ -Monitor BMP 6) Prophylaxis -Lovenox 40mg SC QD 7) Diet -Regular -NPO after midnight 8) Code Status -full code
--- NOTE | 2017-04-28 12:32 | CP.PCM.PN ---
Subjective - Date & Time of Evaluation Date of Evaluation: 04/28/17 Time of Evaluation: 12:31 - Subjective Subjective: ID note- Patient seen and examined today. Pt. states he still has the fever spikes but he denies any diarrhea today and states seems like it's more formed stool today. pt. awaiting liver lesion biopsy today by IR. Objective - Vital Signs/Intake and Output Vital Signs (last 24 hours): Temp Pulse Resp BP Pulse Ox 100.7 F H 90 20 125/84 97 04/28/17 10:33 04/28/17 08:05 04/28/17 08:05 04/28/17 08:05 04/28/17 10:37 - Medications Medications: Current Medications Acetaminophen (Tylenol 325mg Tab) 650 mg PO Q6 [facility] Last Admin: 04/28/17 09:33 Dose: 650 mg Atovaquone (Mepron) 1,500 mg PO DAILY [facility] PRN Reason: Protocol Last Admin: 04/28/17 10:27 Dose: Not Given Enoxaparin Sodium (Lovenox) 40 mg SC DAILY [facility] PRN Reason: Protocol Last Admin: 04/27/17 11:15 Dose: Not Given Home Med (Elviteg/Tayler/Emtric/Tenofo Dis [Stribild Tablet]) 1 tab PO DAILY [facility] Last Admin: 04/28/17 10:27 Dose: Not Given Hydrocortisone (Anusol-Hc) 1 applic [place] BID [facility] Last Admin: 04/28/17 09:13 Dose: Not Given Potassium Chloride/Sodium Chloride (Potassium Chl 20 Meq In Ns) 1,000 mls @ 100 mls/hr IV .Q10H [facility] Last Admin: 04/27/17 11:13 Dose: 100 mls/hr Ibuprofen (Motrin Tab) 600 mg PO Q4 [facility] PRN Reason: Fever >100.4 F Last Admin: 04/27/17 14:38 Dose: 600 mg Lactobacillus Acidophilus (Bacid Acidophilus) 1 cap PO BID [facility] Last Admin: 04/28/17 10:27 Dose: Not Given Metronidazole (Flagyl) 500 mg PO Q8 [facility] PRN Reason: Protocol Last Admin: 04/28/17 11:19 Dose: Not Given - Labs Labs: - Additional Findings Additional findings: - Constitutional Appears: No Acute Distress - Head Exam Head Exam: ATRAUMATIC - Eye Exam Eye Exam: EOMI, PERRL - ENT Exam ENT Exam: Normal Oropharynx - Neck Exam Neck exam: Positive for: Full Rom - Respiratory Exam Respiratory Exam: Clear to Auscultation Bilateral, NORMAL BREATHING PATTERN - Cardiovascular Exam Cardiovascular Exam: RRR, +S1, +S2 - GI/Abdominal Exam Additional comments: somewhat distended soft No tenderness to palpation + bowel sounds No guarding No rebound - Extremities Exam Extremities exam: Positive for: normal inspection - Neurological Exam Neurological exam: Alert, Oriented x 3 Laboratory Results - last 72 hr 04/21/17 04/22/17 04/22/17 11:04 16:40 17:21 WBC RBC Hgb Hct MCV MCH MCHC RDW Plt Count PT INR Sodium Potassium Chloride Carbon Dioxide Anion Gap BUN Creatinine Est GFR ( Amer) Est GFR (Non-Af Amer) Random Glucose Calcium Procalcitonin Urine Color Urine Clarity Urine pH Ur Specific [place] Urine Protein Urine Glucose (UA) Urine Ketones Urine Blood Urine Nitrate Urine Bilirubin Urine Urobilinogen Ur Leukocyte Esterase Urine RBC (Auto) Urine Microscopic WBC Ur Squamous Epith Cells Stool Collect Duration 24 Stool Total Weight 26 Stool Totl Lipids, Qnt See note Stl Cyclospora species TNP Stl Cryptosporidium Ag TNP Stl Giardia Antigen Absolute Lymphs (Flow) % CD4 Cells Absolute CD4 Count T-Help/Suppress Ratio % CD8 Cells Absolute CD8 Count C. difficile Ag & Toxin Cryptosp/Giardia Source TNP Giardia Antigen TNP Hep Bs Antigen Hep Bs Antibody Hep B Core IgM Ab Hepatitis C Antibody Hep C Ab Signal/Cutoff Histoplasma Ab Imm Diff Negative HIV-1 RNA copies/mL HIV-1 RNA logcopies/mL HIV-1 Genotyping Isospora Exam TNP TB Test (QFT) Nil TB Test Mitogen - Nil TB Test TB - Nil TB Test (QFT) Blood Type Antibody Screen BBK History Checked 04/23/17 04/23/17 04/25/17 14:30 14:30 10:41 WBC RBC Hgb Hct MCV MCH MCHC RDW Plt Count PT INR Sodium Potassium Chloride Carbon Dioxide Anion Gap BUN Creatinine Est GFR ( Amer) Est GFR (Non-Af Amer) Random Glucose Calcium Procalcitonin Urine Color Urine Clarity Urine pH Ur Specific [place] Urine Protein Urine Glucose (UA) Urine Ketones Urine Blood Urine Nitrate Urine Bilirubin Urine Urobilinogen Ur Leukocyte Esterase Urine RBC (Auto) Urine Microscopic WBC Ur Squamous Epith Cells Stool Collect Duration Stool Total Weight Stool Totl Lipids, Qnt Stl Cyclospora species Stl Cryptosporidium Ag Stl Giardia Antigen Absolute Lymphs (Flow) 378 L % CD4 Cells 4 L Absolute CD4 Count 17 L T-Help/Suppress Ratio 0.07 L % CD8 Cells 67 H Absolute CD8 Count 253 C. difficile Ag & Toxin Negative Cryptosp/Giardia Source Giardia Antigen Hep Bs Antigen Hep Bs Antibody Hep B Core IgM Ab Hepatitis C Antibody Hep C Ab Signal/Cutoff Histoplasma Ab Imm Diff HIV-1 RNA copies/mL <20 not detected HIV-1 RNA logcopies/mL <1.30 not detected HIV-1 Genotyping Isospora Exam TB Test (QFT) Nil TB Test Mitogen - Nil TB Test TB - Nil TB Test (QFT) Blood Type Antibody Screen BBK History Checked 04/25/17 04/25/17 04/26/17 10:55 22:59 05:45 WBC 1.9 L* RBC 3.43 L Hgb 9.3 L Hct 27.7 L MCV 80.8 MCH 27.2 MCHC 33.7 RDW 17.6 H Plt Count 132 PT INR Sodium Potassium Chloride Carbon Dioxide Anion Gap BUN Creatinine Est GFR ( Amer) Est GFR (Non-Af Amer) Random Glucose Calcium Procalcitonin Urine Color [place] Urine Clarity Slighty-cloudy Urine pH 5.0 Ur Specific [place] 1.039 H Urine Protein 100 Urine Glucose (UA) Neg Urine Ketones Negative Urine Blood Negative Urine Nitrate Negative Urine Bilirubin Negative Urine Urobilinogen 0.2-1.0 Ur Leukocyte Esterase Small Urine RBC (Auto) 37 H Urine Microscopic WBC 1 Ur Squamous Epith Cells < 1 Stool Collect Duration Stool Total Weight Stool Totl Lipids, Qnt Stl Cyclospora species Stl Cryptosporidium Ag Stl Giardia Antigen Absolute Lymphs (Flow) % CD4 Cells Absolute CD4 Count T-Help/Suppress Ratio % CD8 Cells Absolute CD8 Count C. difficile Ag & Toxin Cryptosp/Giardia Source Giardia Antigen Hep Bs Antigen Hep Bs Antibody Hep B Core IgM Ab Hepatitis C Antibody Hep C Ab Signal/Cutoff Histoplasma Ab Imm Diff HIV-1 RNA copies/mL HIV-1 RNA logcopies/mL HIV-1 Genotyping Isospora Exam TB Test (QFT) Nil 0.18 TB Test Mitogen - Nil 0.45 TB Test TB - Nil 0.05 TB Test (QFT) Indeterminate H Blood Type Antibody Screen BBK History Checked 04/26/17 04/26/17 04/26/17 05:45 05:45 10:36 WBC RBC Hgb Hct MCV MCH MCHC RDW Plt Count PT 21.7 H INR 1.9 H Sodium 136 Potassium 3.5 L Chloride 100 Carbon Dioxide 26 Anion Gap 14 BUN 8 L Creatinine 0.6 L Est GFR ( Amer) > 60 Est GFR (Non-Af Amer) > 60 Random Glucose 110 Calcium 8.5 Procalcitonin Urine Color Urine Clarity Urine pH Ur Specific [place] Urine Protein Urine Glucose (UA) Urine Ketones Urine Blood Urine Nitrate Urine Bilirubin Urine Urobilinogen Ur Leukocyte Esterase Urine RBC (Auto) Urine Microscopic WBC Ur Squamous Epith Cells Stool Collect Duration Stool Total Weight Stool Totl Lipids, Qnt Stl Cyclospora species Stl Cryptosporidium Ag Stl Giardia Antigen Absolute Lymphs (Flow) % CD4 Cells Absolute CD4 Count T-Help/Suppress Ratio % CD8 Cells Absolute CD8 Count C. difficile Ag & Toxin Cryptosp/Giardia Source Giardia Antigen Hep Bs Antigen Hep Bs Antibody Hep B Core IgM Ab Hepatitis C Antibody Hep C Ab Signal/Cutoff Histoplasma Ab Imm Diff HIV-1 RNA copies/mL HIV-1 RNA logcopies/mL HIV-1 Genotyping Isospora Exam TB Test (QFT) Nil TB Test Mitogen - Nil TB Test TB - Nil TB Test (QFT) Blood Type O POSITIVE Antibody Screen Negative BBK History Checked Patient has bt 04/26/17 04/26/17 04/26/17 13:02 13:02 13:02 WBC RBC Hgb Hct MCV MCH MCHC RDW Plt Count PT INR Sodium Potassium Chloride Carbon Dioxide Anion Gap BUN Creatinine Est GFR ( Amer) Est GFR (Non-Af Amer) Random Glucose Calcium Procalcitonin Urine Color Urine Clarity Urine pH Ur Specific [place] Urine Protein Urine Glucose (UA) Urine Ketones Urine Blood Urine Nitrate Urine Bilirubin Urine Urobilinogen Ur Leukocyte Esterase Urine RBC (Auto) Urine Microscopic WBC Ur Squamous Epith Cells Stool Collect Duration Stool Total Weight Stool Totl Lipids, Qnt Stl Cyclospora species Stl Cryptosporidium Ag Stl Giardia Antigen Absolute Lymphs (Flow) % CD4 Cells Absolute CD4 Count T-Help/Suppress Ratio % CD8 Cells Absolute CD8 Count C. difficile Ag & Toxin Cryptosp/Giardia Source Giardia Antigen Hep Bs Antigen Negative Hep Bs Antibody Negative Hep B Core IgM Ab Negative Hepatitis C Antibody Non reactive Hep C Ab Signal/Cutoff 0.05 Histoplasma Ab Imm Diff HIV-1 RNA copies/mL HIV-1 RNA logcopies/mL HIV-1 Genotyping Isospora Exam TB Test (QFT) Nil TB Test Mitogen - Nil TB Test TB - Nil TB Test (QFT) Blood Type Antibody Screen BBK History Checked 04/27/17 04/27/17 04/27/17 06:05 06:05 06:05 WBC 2.0 L* RBC 3.29 L Hgb 8.8 L Hct 26.9 L MCV 81.7 MCH 26.8 L MCHC 32.8 L RDW 17.9 H Plt Count 133 PT 19.1 H INR 1.7 H Sodium 138 Potassium 3.6 Chloride 102 Carbon Dioxide 26 Anion Gap 14 BUN 8 L Creatinine 0.5 L Est GFR ( Amer) > 60 Est GFR (Non-Af Amer) > 60 Random Glucose 120 H Calcium 8.7 Procalcitonin Urine Color Urine Clarity Urine pH Ur Specific [place] Urine Protein Urine Glucose (UA) Urine Ketones Urine Blood Urine Nitrate Urine Bilirubin Urine Urobilinogen Ur Leukocyte Esterase Urine RBC (Auto) Urine Microscopic WBC Ur Squamous Epith Cells Stool Collect Duration Stool Total Weight Stool Totl Lipids, Qnt Stl Cyclospora species Stl Cryptosporidium Ag Stl Giardia Antigen Absolute Lymphs (Flow) % CD4 Cells Absolute CD4 Count T-Help/Suppress Ratio % CD8 Cells Absolute CD8 Count C. difficile Ag & Toxin Cryptosp/Giardia Source Giardia Antigen Hep Bs Antigen Hep Bs Antibody Hep B Core IgM Ab Hepatitis C Antibody Hep C Ab Signal/Cutoff Histoplasma Ab Imm Diff HIV-1 RNA copies/mL HIV-1 RNA logcopies/mL HIV-1 Genotyping Isospora Exam TB Test (QFT) Nil TB Test Mitogen - Nil TB Test TB - Nil TB Test (QFT) Blood Type Antibody Screen BBK History Checked 04/27/17 04/27/17 04/28/17 06:05 20:45 06:15 WBC 2.1 L RBC 3.44 L Hgb 9.3 L Hct 28.0 L MCV 81.4 MCH 27.1 MCHC 33.2 RDW 17.7 H Plt Count 152 PT 18.2 H INR 1.6 H Sodium Potassium Chloride Carbon Dioxide Anion Gap BUN Creatinine Est GFR ( Amer) Est GFR (Non-Af Amer) Random Glucose Calcium Procalcitonin 0.58 H Urine Color Urine Clarity Urine pH Ur Specific [place] Urine Protein Urine Glucose (UA) Urine Ketones Urine Blood Urine Nitrate Urine Bilirubin Urine Urobilinogen Ur Leukocyte Esterase Urine RBC (Auto) Urine Microscopic WBC Ur Squamous Epith Cells Stool Collect Duration Stool Total Weight Stool Totl Lipids, Qnt Stl Cyclospora species Stl Cryptosporidium Ag Stl Giardia Antigen Absolute Lymphs (Flow) % CD4 Cells Absolute CD4 Count T-Help/Suppress Ratio % CD8 Cells Absolute CD8 Count C. difficile Ag & Toxin Cryptosp/Giardia Source Giardia Antigen Hep Bs Antigen Hep Bs Antibody Hep B Core IgM Ab Hepatitis C Antibody Hep C Ab Signal/Cutoff Histoplasma Ab Imm Diff HIV-1 RNA copies/mL HIV-1 RNA logcopies/mL HIV-1 Genotyping Isospora Exam TB Test (QFT) Nil TB Test Mitogen - Nil TB Test TB - Nil TB Test (QFT) Blood Type Antibody Screen BBK History Checked 04/28/17 06:15 WBC RBC Hgb Hct MCV MCH MCHC RDW Plt Count PT INR Sodium 142 Potassium 3.8 Chloride 103 Carbon Dioxide 28 Anion Gap 15 BUN 10 Creatinine 0.5 L Est GFR ( Amer) > 60 Est GFR (Non-Af Amer) > 60 Random Glucose 124 H Calcium 9.3 Procalcitonin Urine Color Urine Clarity Urine pH Ur Specific [place] Urine Protein Urine Glucose (UA) Urine Ketones Urine Blood Urine Nitrate Urine Bilirubin Urine Urobilinogen Ur Leukocyte Esterase Urine RBC (Auto) Urine Microscopic WBC Ur Squamous Epith Cells Stool Collect Duration Stool Total Weight Stool Totl Lipids, Qnt Stl Cyclospora species Stl Cryptosporidium Ag Stl Giardia Antigen Absolute Lymphs (Flow) % CD4 Cells Absolute CD4 Count T-Help/Suppress Ratio % CD8 Cells Absolute CD8 Count C. difficile Ag & Toxin Cryptosp/Giardia Source Giardia Antigen Hep Bs Antigen Hep Bs Antibody Hep B Core IgM Ab Hepatitis C Antibody Hep C Ab Signal/Cutoff Histoplasma Ab Imm Diff HIV-1 RNA copies/mL HIV-1 RNA logcopies/mL HIV-1 Genotyping Isospora Exam TB Test (QFT) Nil TB Test Mitogen - Nil TB Test TB - Nil TB Test (QFT) Blood Type Antibody Screen BBK History Checked Microbiology 04/25/17 13:24 Blood-Venous Blood Culture - Preliminary NO GROWTH AFTER 48 HOURS 04/25/17 13:14 Blood-Venous Blood Culture - Preliminary NO GROWTH AFTER 48 HOURS 04/25/17 08:49 Urine,Clean Catch Urine Culture - Final No Growth (<1,000 CFU/ML) 04/22/17 08:58 Blood-Venous Blood Culture - Final NO GROWTH AFTER 5 DAYS 04/22/17 08:58 Blood-Venous Gram Stain - Final TEST NOT PERFORMED 04/22/17 08:58 Blood-Venous Blood Culture - Final NO GROWTH AFTER 5 DAYS 04/22/17 08:58 Blood-Venous Gram Stain - Final TEST NOT PERFORMED 04/20/17 18:15 Blood Blood Culture - Final NO GROWTH AFTER 5 DAYS 04/20/17 18:15 Blood Gram Stain - Final TEST NOT PERFORMED 04/22/17 18:00 Urine,Clean Catch Urine Culture - Final No Growth (<1,000 CFU/ML) 04/21/17 07:59 Urine Urine Culture - Final Gram Positive Cocci 04/21/17 11:04 Stool Stool Culture - Final NO SALMONELLA, SHIGELLA OR CAMPYLOBACTER ISOLATED. 04/21/17 11:04 Stool Ova and Parasite Concentrate Exam - Final 04/21/17 10:15 Other: Please Indicate Mycobacterial Culture - Preliminary Assessment and Plan (1) Hepatosplenomegaly Status: Acute (2) Leukopenia Status: Acute (3) HIV disease Status: Acute (4) Diarrhea Status: Acute (5) Weight loss Status: Acute - Assessment and Plan (Free Text) Assessment: A/P- 37 y/o male with HIV/AIDS admitted with diarrhea and fever. still spiking temps diarrhea none today so far. blood cx- neg x 5 stool cx- neg stool ova and parasite- neg UA- trace LE and urine cx- <10,000 GPC stool c.diff- negative repeat urine cx- negative TTE- no vegetations as per report. chest Ct- no pulmonary findings as per report by radiologits. brain MRI- some nonspecific white matter changes as per report. Vl- undetectable Cd4- 17 Plan: continue with zithromax 1200 mg once a week for MAC prophylaxis. continue with mepron for PCP prophylaxis. continue with his home stribild, 1 tab daily. Await IR guided biopsy of liver lesions by IR today- R/O lymphoma. send tissue biopsy specimen also for gram stain, cx, AFB ,fungal , cmv, hsv, entameba . may need endoscopic evaluation with biopsies to R/O HSV/CMV . continues to spike fever of 102.9 despite being on very broad specrum antibiotics. all blood, stool and urine cx are negative. CT- negative for any abscess , liver lesion and splenomegaly present. fevers are most likely secondary to malignancy vs perhaps drug fever vs opportinisitc pathogen that can only be identified by tissue specimen such as CMV, AFb vs entameba . IV empiric antibiotics held since yesterday afternoon. await blood AFB cx. check bartonella serology as well. cryptosporiduium and micrsporidium and E.Histolytica results still pending. all above d/w patient at length and he verbalizes full understanding of all above.
[2017-04-28] MEDS ORDERED: Midazolam 2 MG/2 ML VIAL ONE (12:33)
[2017-04-28] MEDS ORDERED: Lidocaine 1% Inj (20ml) ONE (12:36)
[2017-04-28 12:37] LABS: IRON 10 ug/dL (49-181)
[2017-04-28] MEDS ORDERED: Absorbable Gelatin Sponge Size 12-7 ONE (12:38)
--- NOTE | 2017-04-28 12:48 | PCM.SURG1 ---
Surgeon's Initial Post Op Note - Surgeon's Notes Surgeon: Haja Garza MD Investment Specialist: NONE Type of Anesthesia: IV Sedation Pre-Operative Diagnosis: Liver masses Operative Findings: US showed multiple hypoechoic lesion in the right hepatic lobe Post-Operative Diagnosis: Liver masses Operation Performed: US guided liver mass biopsy Specimen/Specimens Removed: 18 g core x 6 Estimated Blood Loss: EBL {In ML}: 4 Blood Products Given: N/A Drains Used: No Drains Post-Op Condition: Fair Date of Surgery/Procedure: 04/28/17 Time of Surgery/Procedure: 12:45
[2017-04-28 13:03] LABS: TOTAL IRON BINDING CAPACITY 209 ug/dL (250-450)
[2017-04-28] MEDS: Sodium Chloride 0.9% 1,000 ML IV SCH ×2 (13:35→18:24)
[2017-04-28 15:04] LABS: % IRON SATURATION 5 % (20-55)
--- NOTE | 2017-04-28 20:46 | CP.PCM.PN ---
Subjective - Date & Time of Evaluation Date of Evaluation: 04/28/17 Time of Evaluation: 19:15 - Subjective Subjective: Still having episodes of fever, s/p IR guided percutaneous liver lesion biopsy Objective - Vital Signs/Intake and Output Vital Signs (last 24 hours): Temp Pulse Resp BP Pulse Ox 98.3 F 111 H 18 112/79 98 04/28/17 17:00 04/28/17 17:00 04/28/17 17:00 04/28/17 17:00 04/28/17 17:00 Intake and Output: 04/28/17 04/29/17 18:59 06:59 Intake Total 100 Balance 100 - Medications Medications: Current Medications Acetaminophen (Tylenol 325mg Tab) 650 mg PO Q6 [facility] Last Admin: 04/28/17 15:19 Dose: 650 mg Atovaquone (Mepron) 1,500 mg PO DAILY [facility] PRN Reason: Protocol Last Admin: 04/28/17 15:19 Dose: 1,500 mg Azithromycin (Zithromax) 1,200 mg PO QWK [facility] PRN Reason: Protocol Enoxaparin Sodium (Lovenox) 40 mg SC DAILY [facility] PRN Reason: Protocol Last Admin: 04/27/17 11:15 Dose: Not Given Home Med (Elviteg/Tayler/Emtric/Tenofo Dis [Stribild Tablet]) 1 tab PO DAILY [facility] Last Admin: 04/28/17 15:19 Dose: 1 tab Hydrocortisone (Anusol-Hc) 1 applic NM BID [facility] Last Admin: 04/28/17 16:50 Dose: Not Given Potassium Chloride/Sodium Chloride (Potassium Chl 20 Meq In Ns) 1,000 mls @ 100 mls/hr IV .Q10H [facility] Last Admin: 04/27/17 11:13 Dose: 100 mls/hr Sodium Chloride (Sodium Chloride 0.9%) 1,000 mls @ 100 mls/hr IV .Q10H [facility] Last Admin: 04/28/17 18:24 Dose: 100 mls/hr Ibuprofen (Motrin Tab) 600 mg PO Q4 [facility] PRN Reason: Fever >100.4 F Last Admin: 04/27/17 14:38 Dose: 600 mg Lactobacillus Acidophilus (Bacid Acidophilus) 1 cap PO BID [facility] Last Admin: 04/28/17 16:53 Dose: 1 cap Metronidazole (Flagyl) 500 mg PO Q8 [facility] PRN Reason: Protocol Last Admin: 04/28/17 16:53 Dose: 500 mg - Labs Labs: 04/28/17 06:15 04/28/17 06:15 PT 18.2 Seconds (9.8-13.1) H 04/27/17 20:45 INR 1.6 (0.9-1.2) H 04/27/17 20:45 - Head Exam Head Exam: ATRAUMATIC - Eye Exam Eye Exam: Normal appearance - ENT Exam ENT Exam: Mucous Membranes Dry - Respiratory Exam Respiratory Exam: NORMAL BREATHING PATTERN - Cardiovascular Exam Cardiovascular Exam: +S1, +S2 - GI/Abdominal Exam GI & Abdominal Exam: Normal Bowel Sounds Assessment and Plan (1) Hepatosplenomegaly Assessment & Plan: s/p liver lesion biopsy ? malignancy Status: Acute (2) Lymphadenopathy Assessment & Plan: ? malignancy Status: Acute (3) Anemia Assessment & Plan: chronic disease, anemia of HIV Status: Acute (4) Leukopenia Assessment & Plan: check differential with CBC to evaluate for neutropenia Status: Acute (5) Coagulopathy Assessment & Plan: improved with FFP and vit k Status: Acute
[2017-04-29] MEDS: Sodium Chloride 0.9% 1,000 ML IV SCH (03:52)
[2017-04-29] MEDS: Hydrocortisone 2.5% (Rectal) CREAM PR SCH ×2 (08:11→17:12)
[2017-04-29] MEDS: Lactobacillus Acidophilus 500 MU Cap PO SCH ×2 (08:11→17:12)
--- NOTE | 2017-04-29 12:13 | CP.PCM.PN ---
Subjective - Date & Time of Evaluation Date of Evaluation: 04/29/17 Time of Evaluation: 08:00 - Subjective Subjective: Pt seen and examined. Complains of mild abdominal pain over biopsy site. Also states that he noticed a small painless lesion on the his penis yesterday evening. Denies penile discharge, itchiness. No new diarrheal episodes. Tolerating diet. Ambulating. Objective - Vital Signs/Intake and Output Vital Signs (last 24 hours): Temp Pulse Resp BP Pulse Ox 99.4 F 101 H 18 108/71 97 04/29/17 10:47 04/29/17 09:00 04/29/17 09:00 04/29/17 09:00 04/29/17 09:00 - Medications Medications: Current Medications Acetaminophen (Tylenol 325mg Tab) 650 mg PO Q6 [facility] Last Admin: 04/29/17 09:47 Dose: 650 mg Azithromycin (Zithromax) 1,200 mg PO QWK [facility] PRN Reason: Protocol Enoxaparin Sodium (Lovenox) 40 mg SC DAILY [facility] PRN Reason: Protocol Last Admin: 04/27/17 11:15 Dose: Not Given Home Med (Elviteg/Tayler/Emtric/Tenofo Dis [Stribild Tablet]) 1 tab PO DAILY [facility] Last Admin: 04/29/17 08:11 Dose: 1 tab Hydrocortisone (Anusol-Hc) 1 applic [place] BID [facility] Last Admin: 04/29/17 08:11 Dose: Not Given Potassium Chloride/Sodium Chloride (Potassium Chl 20 Meq In Ns) 1,000 mls @ 100 mls/hr IV .Q10H [facility] Last Admin: 04/27/17 11:13 Dose: 100 mls/hr Lactobacillus Acidophilus (Bacid Acidophilus) 1 cap PO BID [facility] Last Admin: 04/29/17 08:11 Dose: 1 cap Metronidazole (Flagyl) 500 mg PO Q8 [facility] PRN Reason: Protocol Last Admin: 04/29/17 08:12 Dose: 500 mg - Labs Labs: 04/28/17 06:15 04/28/17 06:15 PT 18.2 Seconds (9.8-13.1) H 04/27/17 20:45 INR 1.6 (0.9-1.2) H 04/27/17 20:45 - Constitutional Appears: Well, Non-toxic, No Acute Distress - Head Exam Head Exam: NORMAL INSPECTION - Eye Exam Eye Exam: Normal appearance - ENT Exam ENT Exam: Mucous Membranes Moist - Respiratory Exam Respiratory Exam: Clear to Ausculation Bilateral. absent: Rales, Wheezes - Cardiovascular Exam Cardiovascular Exam: REGULAR RHYTHM, +S1, +S2. absent: Murmur - GI/Abdominal Exam GI & Abdominal Exam: Soft, Tenderness (Appropriate tenderness over biopsy site. No redness, swelling, fluctance. ), Normal Bowel Sounds. absent: Distended - Exam Exam: absent: Circumcision, Scrotal Swelling, Testicular Tenderness, Uretheral Discharge Additional comments: Solitary lesion on base of glans--- Flat, well circumscribed, no vesicular lesions, non tender - Extremities Exam Extremities Exam: absent: Pedal Edema - Neurological Exam Neurological Exam: Alert, Awake, Oriented x3 - Psychiatric Exam Psychiatric exam: Normal Affect - Skin Skin Exam: Normal Color Assessment and Plan - Assessment and Plan (Free Text) Assessment: Assessment: 37 y/o male with PMHx AIDs (CD4 29) admitted for evaluation of diarrhea, unintentional weight loss, and abnormal CT scan findings. Still spiking fevers and tachy intermittently. Diarrhea improved. Plan: F/U Liver Biopsy and other lab results. Started Oral flucanazole. RPR sent. Continue with ABX. ID, Heme Onc on board. 1) Fever and Tachycardia -ID Consulted-c/w Mepron, may need endocsopic biopsy with biopsy (r/u CMV,HSV). Awaiting Quantiferon Gold, and AFB Cx. -Empiric Abx coverage: Flagyl, other ABX d/c as per ID -Still spiking fevers and having night sweats. Tmax 101 last night -electrolytes normal -All Bcx and Ucx no growth -MAC blood cultures: pending -Heme/Onc-F/u Biopsy results. Suspicious for Lymphoma -Echo: No valvular vegetations seen, EF 50%, Mild hypokinesia of LV, otherwise wnl -Chest CT: Mediastinal lymphadenopathy -Brain MRI: No enhancing lesions, nonspecific non enhancing white matter changes in frontal lobe, remained wnl 2) Abnormal CT Scan Findings -Abdominal CT: Hepatosplenogemaly, multiple low attenuation foci scattered throughout hepatic parenchyma with small foci scattered throughout splenic parenchyma, pancreatic and retroperitoneal adenopathy. Periportal LAD rule out post neoplastic lesion such as lymphoma/leukemia/metastatic. Infect/inflamm process less likely -periportal/peripancreatic and retroperitoneal adenopathy -wall thickening of cecum and at ascending colon consist with nonspecific colitis -Triple Phase Liver CT scan: Multiple hepatic masses, do not support hepatocellular carcinoma (see report) -IR biopsy completed 3) Acute Diarrhea in AIDS patient -Diarrhea improved. Pt now havign well formed stool -CT shows small colitits -regular diet, fluids -Stool O/P: wnl, Fecal Leuks: wnl, Stool Lipids:wnl -Stool CMV: pending -Serum CMV IgG positive, IgM negative -occult blood: negative -C diff negative 4) Oral Candidiasis -Pt noted to have oral thrush -Started on po Diflucan 4) Coagulopathy -INR 1.7 post transfusion for 4 FFP and IV Vitamin K -not curretly on anticoagulant therapyy 5) AIDS -CD4: 29/7% as of 02/22/2017 -CD4: 17/4% as of 04/25/2017 -c/w Mepron as ordered for PCP ppx -c/w azithromycin as ordered for MAC ppx. Last dose on 04/22. Due for next dose on 04/30. -c/w HAART as ordered- CHRIS Boone. Pt is brining meds from home 6) Anemia of Unknown Etiology -Hb 9.3 today, asymptomatic -occult blood - negative -Vitamin B12 and folate wnl -iron studies consistent with Anemia of Chronic Disease -f/u AM labs 7) Hypokalemia, resolved -3.8 today -D5 0.45 NS with 20meq K+ -Monitor BMP 8) Prophylaxis -Lovenox 40mg SC QD 9) Diet -Regular -NPO after midnight 10) Code Status -full code
[2017-04-29] MEDS ORDERED: Atovaquone 750 mg/5 ml Susp UD PO SCH (14:30)
--- NOTE | 2017-04-29 15:41 | CP.PCM.DIS ---
Provider - Provider Date of Admission: 04/20/17 18:54 Attending physician: Jazzy Gurrola MD Time Spent in preparation of Discharge (in minutes): 55 Diagnosis - Discharge Diagnosis (1) Fever and chills Status: Acute (2) AIDS (acquired immunodeficiency syndrome), CD4 <=200 Status: Acute (3) Diarrhea Status: Acute Hospital Course - Lab Results Lab Results: Micro Results 04/28/17 12:30 Other: Please Indicate Gram Stain - Final 04/28/17 12:30 Other: Please Indicate Wound Culture - Preliminary NO GROWTH AFTER 24 HOURS 04/28/17 12:30 Other: Please Indicate Virus Culture - Preliminary 04/25/17 13:24 Blood-Venous Blood Culture - Preliminary NO GROWTH AFTER 4 DAYS 04/25/17 13:14 Blood-Venous Blood Culture - Preliminary NO GROWTH AFTER 4 DAYS 04/25/17 08:49 Urine,Clean Catch Urine Culture - Final No Growth (<1,000 CFU/ML) 04/22/17 08:58 Blood-Venous Blood Culture - Final NO GROWTH AFTER 5 DAYS 04/22/17 08:58 Blood-Venous Gram Stain - Final TEST NOT PERFORMED 04/22/17 08:58 Blood-Venous Blood Culture - Final NO GROWTH AFTER 5 DAYS 04/22/17 08:58 Blood-Venous Gram Stain - Final TEST NOT PERFORMED 04/20/17 18:15 Blood Blood Culture - Final NO GROWTH AFTER 5 DAYS 04/20/17 18:15 Blood Gram Stain - Final TEST NOT PERFORMED 04/22/17 18:00 Urine,Clean Catch Urine Culture - Final No Growth (<1,000 CFU/ML) 04/21/17 07:59 Urine Urine Culture - Final Gram Positive Cocci 04/21/17 11:04 Stool Stool Culture - Final NO SALMONELLA, SHIGELLA OR CAMPYLOBACTER ISOLATED. 04/21/17 11:04 Stool Ova and Parasite Concentrate Exam - Final 04/21/17 10:15 Other: Please Indicate Mycobacterial Culture - Preliminary Most Recent Lab Values WBC 2.1 K/uL (4.8-10.8) L 04/28/17 06:15 RBC 3.44 Mil/uL (4.40-5.90) L 04/28/17 06:15 Hgb 9.3 g/dL (12.0-18.0) L 04/28/17 06:15 Hct 28.0 % (35.0-51.0) L 04/28/17 06:15 MCV 81.4 fl (80.0-94.0) 04/28/17 06:15 MCH 27.1 pg (27.0-31.0) 04/28/17 06:15 MCHC 33.2 g/dL (33.0-37.0) 04/28/17 06:15 RDW 17.7 % (11.5-14.5) H 04/28/17 06:15 Plt Count 152 K/uL (130-400) 04/28/17 06:15 MPV 7.7 fl (7.2-11.7) 04/23/17 05:30 Neut % (Auto) 72.6 % (50.0-75.0) 04/23/17 05:30 Lymph % (Auto) 9.5 % (20.0-40.0) L 04/23/17 05:30 [place] % (Auto) 17.4 % (0.0-10.0) H 04/23/17 05:30 Eos % (Auto) 0.3 % (0.0-4.0) 04/23/17 05:30 Baso % (Auto) 0.2 % (0.0-2.0) 04/23/17 05:30 Neut # (Auto) 1.2 K/uL (1.8-7.0) L 04/23/17 05:30 Lymph # (Auto) 0.2 K/uL (1.0-4.3) L 04/23/17 05:30 [place] # (Auto) 0.3 K/uL (0.0-0.8) 04/23/17 05:30 Eos # (Auto) 0.0 K/uL (0.0-0.7) 04/23/17 05:30 Baso # (Auto) 0.0 K/uL (0.0-0.2) 04/23/17 05:30 Neutrophils % (Manual) 75 % (42-75) 04/20/17 12:22 Band Neutrophils % 2 % (0-2) 04/20/17 12:22 Lymphocytes % (Manual) 7 % (20-50) L 04/20/17 12:22 Monocytes % (Manual) 13 % (0-10) H 04/20/17 12:22 Metamyelocytes % 1 % (0-0) H 04/20/17 12:22 Myelocytes % 2 % (0-0) H 04/20/17 12:22 Platelet Estimate Slightly decreased (NORMAL) L 04/20/17 12:22 Large Platelets Present 04/20/17 12:22 Poikilocytosis (manual Slight 04/20/17 12:22 Anisocytosis (manual) Slight 04/20/17 12:22 Tear Drop Cells Slight 04/20/17 12:22 Retic Count 0.6 % (0.5-1.5) 04/24/17 05:30 PT 18.2 Seconds (9.8-13.1) H 04/27/17 20:45 INR 1.6 (0.9-1.2) H 04/27/17 20:45 Sodium 142 mmol/l (132-148) 04/28/17 06:15 Potassium 3.8 MMOL/L (3.6-5.0) 04/28/17 06:15 Chloride 103 mmol/L (98-107) 04/28/17 06:15 Carbon Dioxide 28 mmol/L (22-30) 04/28/17 06:15 Anion Gap 15 (10-20) 04/28/17 06:15 BUN 10 mg/dl (9-20) 04/28/17 06:15 Creatinine 0.5 mg/dl (0.8-1.5) L 04/28/17 06:15 Est GFR ( Amer) > 60 04/28/17 06:15 Est GFR (Non-Af Amer) > 60 04/28/17 06:15 Random Glucose 124 mg/dL (75-110) H 04/28/17 06:15 Lactic Acid 0.9 MMOL/L (0.7-2.1) 04/21/17 17:15 Calcium 9.3 mg/dL (8.4-10.2) 04/28/17 06:15 Magnesium 1.9 MG/DL (1.6-2.3) 04/21/17 17:15 Iron 10 ug/dL (49-181) L 04/28/17 06:15 TIBC 209 ug/dL (250-450) L 04/28/17 06:15 % Saturation 5 % (20-55) L 04/28/17 06:15 Transferrin 133.08 mg/dL (206-381) L 04/28/17 06:15 Ferritin 824.0 ng/Ml (17.9-464) H 04/24/17 05:30 Total Bilirubin 0.5 mg/dl (0.2-1.3) 04/23/17 05:30 Direct Bilirubin 0.3 mg/ml (0.0-0.4) 04/20/17 12:22 AST 31 U/L (17-59) 04/23/17 05:30 ALT 33 U/L (21-72) 04/23/17 05:30 Alkaline Phosphatase 120 U/L (38-126) 04/23/17 05:30 Lactate Dehydrogenase 415 U/L (313-618) 04/21/17 17:15 Total Protein 5.8 G/DL (6.3-8.2) L 04/23/17 05:30 Albumin 2.5 g/dL (3.5-5.0) L 04/23/17 05:30 Globulin 3.3 gm/dL (2.2-3.9) 04/23/17 05:30 Albumin/Globulin Ratio 0.8 (1.0-2.1) L 04/23/17 05:30 Vitamin B12 386 pg/mL (239-931) 04/24/17 05:30 Folate 8.6 ng/mL 04/24/17 05:30 Procalcitonin 0.58 NG/ML (0.19-0.49) H 04/27/17 06:05 Urine Color [place] (YELLOW) 04/25/17 22:59 Urine Clarity Slighty-cloudy (Clear) 04/25/17 22:59 Urine pH 5.0 (5.0-8.0) 04/25/17 22:59 Ur Specific [place] 1.039 (1.003-1.030) H 04/25/17 22:59 Urine Protein 100 mg/dL (NEGATIVE) 04/25/17 22:59 Urine Glucose (UA) Neg mg/dL (Normal) 04/25/17 22:59 Urine Ketones Negative mg/dL (NEGATIVE) 04/25/17 22:59 Urine Blood Negative (NEGATIVE) 04/25/17 22:59 Urine Nitrate Negative (NEGATIVE) 04/25/17 22:59 Urine Bilirubin Negative (NEGATIVE) 04/25/17 22:59 Urine Urobilinogen 0.2-1.0 mg/dL (0.2-1.0) 04/25/17 22:59 Ur Leukocyte Esterase Small Jovani/uL (Negative) 04/25/17 22:59 Urine RBC (Auto) 37 /hpf (0-3) H 04/25/17 22:59 Urine Microscopic WBC 1 /hpf (0-5) 04/25/17 22:59 Ur Squamous Epith Cells < 1 /hpf (0-5) 04/25/17 22:59 Urine Bacteria Few (<OCC) H 04/22/17 18:00 Stool Collect Duration 24 h 04/21/17 11:04 Stool Total Weight 26 g 04/21/17 11:04 Stool Totl Lipids, Qnt See note g/24 h (<7) 04/21/17 11:04 Stool Occult Blood Negative (NEGATIVE) 04/23/17 03:30 Stool Leukocytes, Qual Negative (NEGATIVE) 04/21/17 11:04 Stl Cyclospora species TNP 04/22/17 16:40 Stl Cryptosporidium Ag TNP 04/22/17 16:40 Stl Giardia Antigen (()) 04/22/17 16:40 Absolute Lymphs (Flow) 378 Cells/mcL (850-3900) L 04/23/17 14:30 % CD4 Cells 4 Percent (30-61) L 04/23/17 14:30 Absolute CD4 Count 17 Cells/mcL (490-1740) L 04/23/17 14:30 T-Help/Suppress Ratio 0.07 Ratio (0.86-5.00) L 04/23/17 14:30 % CD8 Cells 67 Percent (12-42) H 04/23/17 14:30 Absolute CD8 Count 253 Cells/mcL (180-1170) 04/23/17 14:30 C. difficile Ag & Toxin Negative (NEGATIVE) 04/25/17 10:41 Cryptosp/Giardia Source TNP 04/22/17 16:40 CMV IgG Ab >10.00 U/mL H 04/22/17 06:00 CMV IgM Ab <30.00 AU/mL 04/22/17 06:00 E. histolytica IgG Ab Negative 04/22/17 17:21 Giardia Antigen TNP 04/22/17 16:40 Hep Bs Antigen Negative (NEGATIVE) 04/26/17 13:02 Hep Bs Antibody Negative (NEGATIVE) 04/26/17 13:02 Hep B Core IgM Ab Negative (NEGATIVE) 04/26/17 13:02 Hepatitis C Antibody Non reactive (Non Reactive) 04/26/17 13:02 Hep C Ab Signal/Cutoff 0.05 Ratio (<1.0) 04/26/17 13:02 Histoplasma Ab Imm Diff Negative (Negative) 04/22/17 17:21 HIV-1 RNA copies/mL <20 not detected copies/mL (<20) 04/23/17 14:30 HIV-1 RNA logcopies/mL <1.30 not detected (<1.30) 04/23/17 14:30 HIV-1 Genotyping (()) 04/23/17 14:30 Isospora Exam TNP 04/22/17 16:40 TB Test (QFT) Nil 0.18 IU/mL 04/25/17 10:55 TB Test Mitogen - Nil 0.45 IU/mL 04/25/17 10:55 TB Test TB - Nil 0.05 IU/mL 04/25/17 10:55 TB Test (QFT) Indeterminate (Negative) H 04/25/17 10:55 Blood Type O POSITIVE 04/26/17 10:36 Blood Type Confirm O POSITIVE 04/22/17 07:30 Antibody Screen Negative 04/26/17 10:36 BBK History Checked Patient has bt 04/26/17 10:36 - Hospital Course Hospital Course: Hospital Course: Pt is a 37 y/o male with aids (CD4 17) presenting with 2 week hx of diarrhea, fever, chills, and night sweats and was found to be pancytopenic. Pt was treated with broad spectrum antibiotics and multiple lab tests and cultures were sent. Pt continued to have episodic fever and tachy despite being on antibiotics, all cultures were negative. Abdominal CT showed multiple liver and splenic lesions as well as generalized lymphadenopathy. He was evaluated by ID, Heme/Onc and GI. A liver biopsy was conducted and sent to the pathology. Pt's diarrhea resolved and he was stable for discharge. Discharge medications: No changes to current home medications. Added Diflucan for treatment of oral thrush. Instructed to take daily for 14 days. Discharge Exam - Head Exam Head Exam: NORMAL INSPECTION - Eye Exam Eye Exam: Normal appearance - ENT Exam ENT Exam: Mucous Membranes Moist - Respiratory Exam Respiratory Exam: Clear to PA & Lateral. absent: Rales, Wheezes - Cardiovascular Exam Cardiovascular Exam: REGULAR RHYTHM, +S1, +S2. absent: Systolic Murmur - GI/Abdominal Exam GI & Abdominal Exam: Soft. absent: Distended, Tenderness - Neurological Exam Neurological exam: Alert, Oriented x3 - Psychiatric Exam Psychiatric exam: Normal Affect - Skin Skin Exam: Normal Color Discharge Plan - Discharge Medications Prescriptions: Fluconazole [Diflucan] 100 mg PO DAILY 14 Days #14 tab - Follow Up Plan Condition: FAIR Disposition: HOME/ ROUTINE Instructions: Liver Biopsy, Fever, Adult (DC) Additional Instructions: follow up with ON 05/02/16 AY 11:30AM follow up with pmd Dr. Sanchez ([facility]) on May 11. PMD will reviews results of send out labs. Referrals: Seth Palmer MD [Staff Provider] - Reina Sanchez MD [Family Provider] -
[2017-04-29 16:13] VITALS: BP 110/65; PULSE 123; RESP 20; TEMP 99.8; O2SAT 96
[2017-04-29 17:31] LABS: SOURCE STOOL
--- NOTE | 2017-05-04 11:12 | VASCULAR ---
PROCEDURE: Date of procedure: 04/28/2017 Procedure: Ultrasound-guided percutaneous core biopsy of liver mass, CPT 80867 Ultrasound guidance for biopsy, CPT 34674 Medications: The patient was sedated by the anesthesiologist with IV sedation and monitoring. HISTORY: Liver Mass TECHNIQUE: Following informed consent and procedure time-out, the patient was placed supine on bed and limited ultrasound showed multiple small liver masses within the right hepatic lobe. After the patient abdomen was prepped and draped in the usual sterile fashion and the skin anesthetized with lidocaine, an 18 gauge core needle was advanced percutaneously under direct ultrasound guidance into the mass. Upon confirmation of needle position, six core specimens were obtained and sent for routine pathology. The biopsy track was then embolized with Gelfoam. A post biopsy ultrasound performed showed no hematoma. A dressing was applied. IMPRESSION: Ultrasound-guided core biopsy of liver mass.
--- NOTE | 2017-05-09 15:37 | PQF GENQUE ---
Dr. Gurrola pt had a liver biopsy on 04/28 and progress note dated 04/29 documented "suspicious Lymphoma." After study was Lymphoma confirmed or ruled out? This form is a permanent part of the medical record Clarification of your documentation is requested to better reflect the severity of illness and intensity of treatment of your patient. Indicators present [] Specify: [] [] Specify: [] [] Specify: [] [] Specify: [] Location in the medical record that reflects the above clinical findings: [] Treatment Provided: [] PHYSICIAN'S RESPONSE Pt has lymphoma as per bx Based on your medical judgment of the clinical indicators outlined above please clarify the following: [] Practitioner response [] If unable to determine, please check the box, sign and date. Present On Admission (POA) Indicator: [] Present at the time of admission [] Not present at the time of admission [] Clinically Undetermined In responding to this query, please exercise your independent professional judgment. The fact that a question is asked does not imply that any particular answer is desired or expected. Thank you for your clarification on this documentation. If you have any questions please call:[ ] * Thank you, [ ]Judith Humphreys food writer MARBELLA
== END 2017-04-29 17:35 | disposition home or self-care (01) | DRG 578 ==
LOC: H.ER 10:51 → H.ERHOLD 18:54 → H.MEDSURG1 21:50
PROVIDERS: ADMIT Family Medicine Geriatric Medicine; ATTEND Family Medicine Geriatric Medicine
PROC: 30233K1 Transfusion of Nonautologous Frozen Plasma into Peripheral Vein, Percutaneous Approach (ICD-10-PCS; 2017-04-26)
PROC: 0FB13ZX Excision of Right Lobe Liver, Percutaneous Approach, Diagnostic (ICD-10-PCS; principal; 2017-04-28 12:30)
DX: C81.93 Hodgkin lymphoma, unspecified, intra-abdominal lymph nodes (principal); B20 Human immunodeficiency virus [HIV] disease; E87.6 Hypokalemia; B37.0 Candidal stomatitis; D68.4 Acquired coagulation factor deficiency; E86.1 Hypovolemia; L80 Vitiligo; R63.4 Abnormal weight loss; Z68.22 Body mass index [BMI] 22.0-22.9, adult; K52.9 Noninfective gastroenteritis and colitis, unspecified; R59.0 Localized enlarged lymph nodes; D72.819 Decreased white blood cell count, unspecified; N48.9 Disorder of penis, unspecified

== ENCOUNTER 2017-05-16 08:36 | Day surgery (SDC) | payer MEDICAID ==
[2017-05-16 08:40] VITALS: BMI 23.1
[2017-05-16] MEDS ORDERED: Propofol 10 mg/ml Inj (20 ML) ONE (09:29)
[2017-05-16] MEDS ORDERED: Midazolam 2 MG/2 ML VIAL ONE (09:29)
[2017-05-16] MEDS ORDERED: Succinylcholine 200 mg/10 ml Inj IV ONE (09:30)
[2017-05-16] MEDS ORDERED: ePHEDrine 50 mg/ml Inj ONE (09:30)
[2017-05-16 09:34] LABS: INR 1.8 (0.9-1.2); PARTIAL THROMBOPLASTIN TIME 45.7 Seconds (25.6-37.1); PROTHROMBIN TIME 20.3 Seconds (9.8-13.1)
[2017-05-16 09:41] LABS: BASO % 0.3 % (0.0-2.0); EOS % 0.1 % (0.0-4.0); HEMOGLOBIN 8.5 g/dL (12.0-18.0); LYMPH # 0.2 K/uL (1.0-4.3); LYMPH % 6.2 % (20.0-40.0); MEAN CELL VOLUME 78.1 fl (80.0-94.0); MEAN CORPUSCULAR HEMOGLOBIN 25.2 pg (27.0-31.0); MEAN CORPUSCULAR HGB CONC 32.3 g/dL (33.0-37.0); MEAN PLATELET VOLUME 9.1 fl (7.2-11.7); MONO # 0.6 K/uL (0.0-0.8); MONO % 15.8 % (0.0-10.0); NEUT % 77.6 % (50.0-75.0); RBC 3.39 Mil/uL (4.40-5.90); RED CELL DISTRIBUTION WIDTH 19.8 % (11.5-14.5); WHITE BLOOD COUNT 3.8 K/uL (4.8-10.8)
[2017-05-16 09:42] LABS: PLATELET COUNT 99 K/uL (130-400)
[2017-05-16 09:49] VITALS: RESP 20
[2017-05-16] MEDS ORDERED: Lidocaine Hydrochloride 1% 10 ML ONE (09:58)
[2017-05-16] MEDS ORDERED: Bupivacaine 0.5% Inj(30mL) ONE (09:58)
[2017-05-16] MEDS ORDERED: Lactated Ringer's 1,000 ML IV ONE (10:00)
[2017-05-16] MEDS ORDERED: Lidocaine 1% Inj (20ml) IJ ONE (10:36)
[2017-05-16] MEDS ORDERED: Dexamethasone 4 mg/1 ml ONE (10:38)
[2017-05-16 11:11] LABS: BANDS 1 % (0-2); LYMPHOCYTE 9 % (20-50); METAMYELOCYTE 2 % (0-0); MONOCYTE 12 % (0-10); MYELOCYTE 2 % (0-0); NEUTROPHIL 74 % (42-75); PLATELET ESTIMATE DECREASED (NORMAL); TOTAL CELLS COUNTED 100
[2017-05-16 11:12] LABS: ANISOCYTOSIS SLIGHT; POIKILOCYTOSIS SLIGHT
[2017-05-16 11:13] LABS: HYPOCHROMIC SLIGHT; LARGE PLATELETS PRESENT; MICROCYTOSIS SLIGHT; OVALOCYTES SLIGHT; SCHISTOCYTES SLIGHT
[2017-05-16] MEDS ORDERED: Morphine 4 MG/ML VIAL IVP PRN (11:30)
[2017-05-16] MEDS ORDERED: Lactated Ringer's 1,000 ML IV SCH (11:30)
--- NOTE | 2017-05-16 11:39 | CP.SDSHP ---
Same Day Surgery H & P - History Proposed Procedure: Portacath insertion Pre-Op Diagnosis: Hodgkin's Lymphoma - Previous Medical/Surgical History Pain: 4.Moderate Pain - Allergies Allergies: Allergies Mortin Allergy (Mild, Uncoded 04/28/17 20:45) RASH - Physical Exam Vital Signs: Vital Signs 05/16/17 05/16/17 09:44 11:25 Temperature 98.6 F 101.3 F H Pulse Rate 113 H 123 H Respiratory 20 20 Rate Blood Pressure 107/66 114/66 O2 Sat by Pulse 100 100 Oximetry Mental Status: Alert & Oriented x3 Neuro: WNL Heart: WNL Lungs: WNL GI: WNL - {Optional Preform as Required} Abdomen: WNL ENT: WNL - Impression Impression: 37M with Hodgkin's lymphoma s/p poracath insertion Pt. Evaluated Today:Candidate for Anesthesia & Procedure: Yes - Date & Time Date: 05/16/17 Time: 10:30 Short Stay Discharge - Short Stay Discharge Admitting Diagnosis/Reason for Visit: C81.90 Disposition: HOME/ ROUTINE Referrals: Jg Tyler MD [Primary Care Provider] -
--- NOTE | 2017-05-16 12:01 | RAD ---
HISTORY: s/p portacath insertion r/o pneumothorax COMPARISON: 04/25/2017 FINDINGS: LUNGS: No active pulmonary disease. PLEURA: No significant pleural effusion identified, no pneumothorax apparent. CARDIOVASCULAR: No radiographic findings to suggest acute or significant cardiovascular disease. Venous access catheter in satisfactory position. OSSEOUS STRUCTURES: No significant abnormalities. VISUALIZED UPPER ABDOMEN: Normal. OTHER FINDINGS: None. IMPRESSION: Satisfactory position of recently placed venous access catheter. No pneumothorax.
[2017-05-16 14:24] VITALS: BP 107/72; PULSE 114; TEMP 98.6; O2SAT 96
--- NOTE | 2017-05-16 17:07 | RAD ---
PROCEDURE: Fluoroscopy up to 1 hr. HISTORY: PORT A CATH INSERTION COMPARISON: None TECHNIQUE: Standard protocol for this study/examination. FINDINGS: Total fluoroscopic time (continuous mode) utilized during the procedure 20.3 (seconds). Submitted images from the current procedure: 3.0. IMPRESSION: Less than 1 hr fluoroscopic time utilized during performance of the procedure.
== END 2017-05-16 15:14 | disposition home or self-care (01) ==
LOC: H.OPSURG 08:36
PROVIDERS: ATTEND Specialist
DX: C81.90 Hodgkin lymphoma, unspecified, unspecified site (principal); Z21 Asymptomatic human immunodeficiency virus [HIV] infection status
CPT/HCPCS: 36415; 36558; 71045; 85025; 85610; 85730; J0330; J0690; J1100; J1644; J2250; J3010; J7120

== ENCOUNTER 2017-05-16 18:28 | Inpatient (IN) | payer MEDICAID ==
[2017-05-16 18:28] VITALS: BMI 23.1
[2017-05-16] MEDS ORDERED: Sodium Chloride 0.9% 1,000 ML IV STA (19:44)
[2017-05-16 20:17] LABS: BASO % 0.2 % (0.0-2.0); HEMOGLOBIN 7.2 g/dL (12.0-18.0); LYMPH # 0.2 K/uL (1.0-4.3); LYMPH % 5.8 % (20.0-40.0); MEAN CELL VOLUME 78.2 fl (80.0-94.0); MEAN CORPUSCULAR HEMOGLOBIN 25.2 pg (27.0-31.0); MEAN CORPUSCULAR HGB CONC 32.2 g/dL (33.0-37.0); MEAN PLATELET VOLUME 10.7 fl (7.2-11.7); MONO # 0.4 K/uL (0.0-0.8); MONO % 11.3 % (0.0-10.0); NEUT # 2.9 K/uL (1.8-7.0); NEUT % 82.7 % (50.0-75.0); NRBC % 0.1 % (0.0-0.0); RBC 2.86 Mil/uL (4.40-5.90); RED CELL DISTRIBUTION WIDTH 19.3 % (11.5-14.5); WHITE BLOOD COUNT 3.5 K/uL (4.8-10.8)
[2017-05-16 20:28] LABS: PARTIAL THROMBOPLASTIN TIME 42.3 Seconds (25.6-37.1); PROTHROMBIN TIME 22.5 Seconds (9.8-13.1)
--- NOTE | 2017-05-16 20:36 | ED PDOC ---
HPI: SOB/CHF/COPD Time Seen by Provider: 05/16/17 19:27 Chief Complaint (Nursing): Shortness Of Breath Chief Complaint (Provider): Shortness Of Breath History Per: Patient History/Exam Limitations: no limitations Additional Complaint(s): 37 y/o male with history of recently diagnosed lymphoma presents to the ED complaining of shortness of breath. Reports that he has been having recurrent fever and swelling to lower extremity. Patient also reports loss of appetite and generalized weakness. Denies nausea, vomiting or any further medical complaints. PMD: Reina Sanchez MD Past Medical History Reviewed: Historical Data, Nursing Documentation, Vital Signs Vital Signs: Last Vital Signs Temp 98 F 05/17/17 01:37 Pulse 94 H 05/17/17 01:37 Resp 18 05/17/17 01:37 BP 94/60 L 05/17/17 01:37 Pulse Ox 96 05/17/17 01:37 - Medical History PMH: HIV (vl undetectable) Denies: Chronic Kidney Disease - Surgical History Surgical History: No Surg Hx - Family History Family History: States: Unknown Family Hx - Social History Current smoker - smoking cessation education provided: No Alcohol: None Drugs: Denies - Home Medications Home Medications: Ambulatory Orders Medication Instructions Recorded Elviteg/Tayler/Emtric/Tenofo Dis 1 tab PO DAILY 04/20/17 [Stribild Tablet] Sulfamethoxazole/Trimethoprim 1 tab PO DAILY 04/20/17 [Bactrim DS Tab] - Allergies Allergies/Adverse Reactions: Allergies Allergy/AdvReac Type Severity Reaction Status Date / Time Mortin Allergy Mild RASH Uncoded 05/16/17 18:37 Review of Systems ROS Statement: Except As Marked, All Systems Reviewed And Found Negative (As per HPI, otherwise negative) Constitutional: Positive for: Fever, Weakness, Other (loss of appetite) Respiratory: Positive for: Shortness of Breath Gastrointestinal: Negative for: Nausea, Vomiting Musculoskeletal: Positive for: Other (lower extremity swelling) Physical Exam - Reviewed Nursing Documentation Reviewed: Yes Vital Signs Reviewed: Yes - Physical Exam Appears: Positive for: Non-toxic, No Acute Distress Head Exam: Positive for: ATRAUMATIC, NORMAL INSPECTION, NORMOCEPHALIC Skin: Positive for: Normal Color, Warm (Patient is febrile), Dry Eye Exam: Positive for: EOMI, PERRL, Other (Pale conjunctiva) ENT: Positive for: Normal ENT Inspection Neck: Positive for: Normal, Painless ROM, Supple Cardiovascular/Chest: Positive for: Tachycardia. Negative for: Murmur Respiratory: Positive for: Normal Breath Sounds Gastrointestinal/Abdominal: Positive for: Normal Exam, Soft. Negative for: Tenderness Back: Positive for: Normal Inspection Extremity: Positive for: Normal ROM, Other (non pitting edema; 2+) Neurologic/Psych: Positive for: Alert, Oriented (x3) - Laboratory Results Result Diagrams: 05/16/17 20:00 05/16/17 20:00 - ECG O2 Sat by Pulse Oximetry: 94 (RA) Pulse Ox Interpretation: Normal - Critical Care Total Time (In Min): 30 Medical Decision Making Medical Decision Making: Time: 20:00 Initial Impression: shortness of breath and pallor with recently diagnosed lymphoma Plan: Packed cell leukoreduced Crossmatch Type and screen EKG BNP CMP Lactic acid Troponin I CBC w/ differential PTT Prothrombin time Chest x-ray Ibuprofen 400mg PO Sodium chloride 1L IV Reevaluation --Labs show anemia --Chest x-ray shows cardiomegaly --Patient admitted by [facility] resident Clinical Impression: Dehydration, anemia Scribe Attestation: Documented by Michael Wills acting as a scribe for Joseph Grady MD. Scribe Attestation: All medical record entries made by the Scribe were at my direction and personally dictated by me. I have reviewed the chart and agree that the record accurately reflects my personal performance of the history, physical exam, medical decision making, and the department course for this patient. I have also personally directed, reviewed, and agree with the discharge instructions and disposition. Disposition - Clinical Impression Clinical Impression: Anemia, Lymphoma, Anasarca, Tachycardia - Disposition Disposition Time: 20:00 Condition: STABLE - Pt Status Changed To: Hospital Disposition Of: Inpatient - Admit Certification Admit to Inpatient:: After my assessment, the patient will require hospitalization for at least two midnights. This is because of the severity of symptoms shown, intensity of services needed, and/or the medical risk in this patient being treated as an outpatient.
[2017-05-16 20:39] LABS: ALB/GLOB RATIO 0.8 (1.0-2.1); ALBUMIN 2.5 g/dL (3.5-5.0); ALT/SGPT 53 U/L (21-72); AST/SGOT 37 U/L (17-59); BLOOD UREA NITROGEN 16 mg/dl (9-20); CALCIUM 8.4 mg/dL (8.4-10.2); GFR AFRICAN-AMERICAN > 60; GFR NON-AFRICAN AMERICAN > 60
--- NOTE | 2017-05-16 23:52 | CP.PCM.HP ---
History of Present Illness - History of Present Illness History of Present Illness: 37 y/o male with PMHx of HIV infection, Low CD4 (17/ tested on 04/25/17) on HIV opportunistic infection prophylaxis, and recent diagnosed Hodgkins Lymphoma stage 4 ( on Tuesday05/09/17 per Hemo/Onc Dr. Palmer) presents to [facility] complaining of swollen legs and increase in abdominal girth for 2 days . Patient reports he has had unchanged SOB, night sweats, chills, every day fevers at home, as high as 104-105 F for the last 3-4 weeks. Patient got a Chemotherapy port today Tuesday by Dr. Sanchez ( general surgery) to start next Tuesday chemotherapy for his Lymphoma. Also patient reports a dry cough since today after the chemo port placement. Denies sputum production, chest pain, pleuritic chest pain, N/V. Denies urinary symptoms, abdominal pain, recent episodes of diarrheas. PMD: Laura at [facility] Hemo/Onc Dr. Palmer PMHx: HIV, low CD4(17/ tested on 04/25/17), Vitiligo, recent diagnosed Hodgkins Lymphoma stage 4 ( on Tuesday05/09/17 per Hemo/Onc Dr. Palmer) Meds: Stribild [phone], Azithromycin 1200mg Qweekly( next dose scheduled for Tuesday of next week) , Bactrim DS 800-160 mg QD ALL: NKDA PsurgHx: buttock implants FamilyHx: father heart disease, mother healthy Socialhx: social ETOH, denies Tobacco/drug abuse Next of Kin: Mother, Elvia Garcia Code Status: full code ER course: VS: febrile, tachy PE: chronic Ill, pale skin resp: CTA to auscultation B/L CV: normal S1, S2 abd: distended, mild tender to palpation of right abd, no rebound tenderness, no rigidity or guarding. Subtle evidence of fluid wave. ext: pitting 2 + edema in LE Lbs: CBC: pancytopenia, elevated coag panel, normal pro BNP, normal lactic acid CXR : by me no gross evidence of acute disease when compared with prior test. pending official report Tx:IV fluids, 2 units of PRBC to transfuse, pending transfusion Present on Admission - Present on Admission Any Indicators Present on Admission: No History of DVT/PE: No History of Uncontrolled Diabetes: No Urinary Catheter: No Decubitus Ulcer Present: No Review of Systems - Review of Systems All systems: reviewed and no additional remarkable complaints except (as per HPI ) Past Patient History - Infectious Disease Hx of Infectious Diseases: None - Past Medical History & Family History Past Medical History?: Yes - Past Social History Alcohol: None Drugs: Denies - CARDIAC Hx Cardiac Disorders: No - PULMONARY Hx Respiratory Disorders: No - NEUROLOGICAL Hx Neurological Disorder: No - HEENT Hx Blind: No - RENAL Hx Chronic Kidney Disease: No - ENDOCRINE/METABOLIC Hx Endocrine Disorders: No - HEMATOLOGICAL/ONCOLOGICAL Hx Human Immunodeficiency Virus (HIV): Yes (vl undetectable) - INTEGUMENTARY Hx Dermatological Problems: No - MUSCULOSKELETAL/RHEUMATOLOGICAL Hx Musculoskeletal Disorders: No Hx Falls: No - GASTROINTESTINAL Hx Gastrointestinal Disorders: No - GENITOURINARY/GYNECOLOGICAL Hx Genitourinary Disorders: No - PSYCHIATRIC Hx Emotional Abuse: No Hx Physical Abuse: No - SURGICAL HISTORY Hx Surgeries: No Other/Comment: STOMACH BIOPSY - ANESTHESIA Hx Anesthesia: Yes Hx Anesthesia Reactions: No Hx Malignant Hyperthermia: No Meds Allergies/Adverse Reactions: Allergies Allergy/AdvReac Type Severity Reaction Status Date / Time Mortin Allergy Mild RASH Uncoded 05/16/17 18:37 Physical Exam - Constitutional Appears: Non-toxic, No Acute Distress, Chronically Ill - ENT Exam ENT Exam: Mucous Membranes Moist - Respiratory Exam Respiratory Exam: Clear to Auscultation Bilateral, NORMAL BREATHING PATTERN. absent: Rales, Rhonchi, Wheezes, Respiratory Distress, Stridor - Cardiovascular Exam Cardiovascular Exam: Tachycardia, REGULAR RHYTHM, +S1, +S2 - GI/Abdominal Exam GI & Abdominal Exam: Soft, Tenderness (diffuse mild tenderness to palpation, fluid wave noted) - Extremities Exam Extremities exam: Negative for: calf tenderness Additional comments: pitting 2+ edema in lower extremities - Back Exam Back exam: CVA tenderness (L), CVA tenderness (R), NORMAL INSPECTION - Neurological Exam Neurological exam: Alert, Oriented x3 - Skin Skin Exam: Dry, Intact, Pallor Results - Vital Signs Recent Vital Signs: Last Vital Signs Temp 103.1 F H 05/16/17 21:59 Pulse 136 H 05/16/17 21:59 Resp 98 H 05/16/17 21:59 BP 135/54 L 05/16/17 21:59 Pulse Ox 94 L 05/16/17 23:04 - Labs Result Diagrams: 05/16/17 20:00 05/16/17 20:00 Labs: Laboratory Results - last 24 hr 05/16/17 05/16/17 05/16/17 20:00 20:00 20:00 WBC 3.5 L RBC 2.86 L Hgb 7.2 L Hct 22.3 L MCV 78.2 L MCH 25.2 L MCHC 32.2 L RDW 19.3 H Plt Count 96 L MPV 10.7 Neut % (Auto) 82.7 H Lymph % (Auto) 5.8 L Waldo % (Auto) 11.3 H Eos % (Auto) 0.0 Baso % (Auto) 0.2 Neut # (Auto) 2.9 Lymph # (Auto) 0.2 L Waldo # (Auto) 0.4 Eos # (Auto) 0.0 Baso # (Auto) 0.0 PT 22.5 H INR 2.0 H APTT 42.3 H Sodium 134 Potassium 4.8 Chloride 98 Carbon Dioxide 23 Anion Gap 18 BUN 16 Creatinine 0.6 L Est GFR ( Amer) > 60 Est GFR (Non-Af Amer) > 60 Random Glucose 169 H Lactic Acid Calcium 8.4 Total Bilirubin 2.1 H AST 37 ALT 53 Alkaline Phosphatase 574 H D Troponin I < 0.0120 Total Protein 5.8 L Albumin 2.5 L Globulin 3.3 Albumin/Globulin Ratio 0.8 L Blood Type Antibody Screen Crossmatch BBK History Checked 05/16/17 05/16/17 20:00 20:00 WBC RBC Hgb Hct MCV MCH MCHC RDW Plt Count MPV Neut % (Auto) Lymph % (Auto) Waldo % (Auto) Eos % (Auto) Baso % (Auto) Neut # (Auto) Lymph # (Auto) Waldo # (Auto) Eos # (Auto) Baso # (Auto) PT INR APTT Sodium Potassium Chloride Carbon Dioxide Anion Gap BUN Creatinine Est GFR ( Amer) Est GFR (Non-Af Amer) Random Glucose Lactic Acid 1.9 Calcium Total Bilirubin AST ALT Alkaline Phosphatase Troponin I Total Protein Albumin Globulin Albumin/Globulin Ratio Blood Type O POSITIVE Antibody Screen Negative Crossmatch See Detail BBK History Checked No verified bt Assessment & Plan - Assessment and Plan (Free Text) Assessment: 37 y/o male with PMHx of HIV infection, Low CD4 count, and recent diagnosed Hodgkins Lymphoma stage 4 admitted with pancytopenia, acute on chronic anemia, and persistent fevers. Plan: Microcytic Anemia -Acute on chronic -Telemetry unit -tachycardic on admission -likely 2/2 malignancy, no evidence of acute bleeding -Type and screen in ER -Transfuse 2 units of PRBC as per ER provider -check CBC after transfusion -H/H on admission 7.2/22.3 -Consider to call Hematology/Onc on consult for recommendations Fevers -persistent for 2-3 weeks -could be 2/2 recent diagnosed Hodcking Lymphoma, but patient is immuno- compromised. -f/u blood culture -f/u UA, if positive send for urine culture -f/u procalcitonin -ANC wnl in CBC on admission -Tylenol for fever control -Consider to call Hematology/Onc on consult for recommendations Lower extremities edema -most likely to be 2/2 hepatosplenomegaly -noted in abd/pelvis CT w/ PO and IV contrast done on 04/20/17. Multiple hepatic masses reported. With dilated portal veins. -pro BNP on admission was normal -Echo done on 04/25/17 reported as EF: 50 %, with left systolic function mildly impaired Increased In abdominal Girth -physical exam showed evidence of possible ascitis -abdominal US to check for ascitis -total Bili elevated -will start empiric treatment with antibiotics for SBP -patient presents with fevers, and abdominal tenderness to palpation -consider ascitis fluid analysis if ascitis fluid is found in abdominal US and can be tap Coagulopathy with elevated INR -FFP once unit -INR:2.0 Thrombocytopenia -most likely 2/2 splenomegaly vs malignancy vs both -no active bleeding noted -f/u plt count HIV infection -lymphocyte panel on 04/25/17 -CD4 count 17, % CD4 4 % -resume home med, patient will bring own med -c/w Bactrim DS for prophylaxis -c/w azithromycin for prophylaxis, as per patient next dose is scheduled for Tuesday next week DVT prophylaxis -thrombocytopenia on admission 96, and acute on chronic anemia -SCDs for now - Date & Time Date: 05/16/17 Time: 19:55
[2017-05-17] MEDS ORDERED: Sodium Chloride 0.9% 1,000 ML IV SCH ×3 (00:30→05:20)
[2017-05-17 02:43] LABS: B-TYPE NATRIURETIC PEPTIDE 245 pg/ml (0-450)
--- NOTE | 2017-05-17 08:17 | CP.PCM.PN ---
Subjective - Date & Time of Evaluation Date of Evaluation: 05/17/17 Time of Evaluation: 08:16 - Subjective Subjective: Patient seen and examined this morning at bedside, febrile and tachycardic, reports mild abdominal discomfort in RUQ. Receiving second PRBC bag. Denies nausea, vomiting, chest pain or sob. No urinary symptoms. Objective - Vital Signs/Intake and Output Vital Signs (last 24 hours): Temp Pulse Resp BP Pulse Ox 102.3 F H 130 H 18 105/58 L 96 05/17/17 07:42 05/17/17 07:42 05/17/17 07:42 05/17/17 07:42 05/17/17 07:42 - Medications Medications: Current Medications Acetaminophen (Tylenol 325mg Tab) 650 mg PO Q4 PRN PRN Reason: Fever >100.4 F Last Admin: 05/17/17 06:12 Dose: 650 mg Home Med (Patient's Own Medication) 1 unit PO DAILY DARRION Trimethoprim/Sulfamethoxazole (Bactrim Ds Tab) 1 tab PO DAILY DARRION PRN Reason: Protocol - Labs Labs: 05/16/17 20:00 05/16/17 20:00 PT 22.5 Seconds (9.8-13.1) H 05/16/17 20:00 INR 2.0 (0.9-1.2) H 05/16/17 20:00 APTT 42.3 Seconds (25.6-37.1) H 05/16/17 20:00 - Constitutional Appears: No Acute Distress, Chronically Ill - Head Exam Head Exam: NORMAL INSPECTION - Eye Exam Eye Exam: EOMI, PERRL - Respiratory Exam Respiratory Exam: Clear to Ausculation Bilateral, NORMAL BREATHING PATTERN. absent: Rales, Rhonchi, Wheezes - Cardiovascular Exam Cardiovascular Exam: Tachycardia, REGULAR RHYTHM, +S1, +S2 - GI/Abdominal Exam GI & Abdominal Exam: Distended, Tenderness (mild tender in RUQ on palpation), Normal Bowel Sounds. absent: Guarding - Extremities Exam Extremities Exam: absent: Calf Tenderness Additional comments: Swelling noted b/l on LE up to ankle level - Neurological Exam Neurological Exam: Alert, Awake, Oriented x3 - Psychiatric Exam Psychiatric exam: Normal Affect - Skin Skin Exam: Warm Assessment and Plan - Assessment and Plan (Free Text) Assessment: 37 y/o male with PMHx of HIV/AIDS, Low CD4 count, and recent diagnosed Hodgkins Lymphoma stage 4 admitted with pancytopenia, acute on chronic anemia, and persistent fevers. Plan: 1-Microcytic Anemia, Acute on chronic - H/H 7.2/.3 - likely 2/2 malignancy, no evidence of acute bleeding - Transfuse 2 units of PRBC - Hematology/Onc Dr Palmer consulted, recs appreciated 2-Fevers -persistent for 2-3 weeks -could be 2/2 recent diagnosed Hodgkin Lymphoma -f/u blood culture -f/u UA, if positive send for urine culture -f/u procalcitonin -ANC wnl -Tylenol PRN - Hematology/Onc Dr Palmer consulted - ID Dr Rich consult placed. 3-Lower extremities edema -most likely to be 2/2 hepatosplenomegaly - abd/pelvis CT 04/20/17: Multiple hepatic masses reported. dilated portal veins. -pro BNP on admission was normal -Echo done on 04/25/17: EF 50 %, with left systolic function mildly impaired 4-Increased In abdominal Girth -physical exam showed evidence of possible ascitis -abdominal US to check for ascitis - empiric treatment with antibiotics for SBP 5-Coagulopathy with elevated INR -FFP once unit -INR:2.0 6-Thrombocytopenia -most likely 2/2 splenomegaly vs malignancy vs both -no active bleeding noted -f/u plt count 7-HIV infection -lymphocyte panel on 04/25/17 -CD4 count 17, % CD4 4 % -resume home med, patient will bring own med -c/w Bactrim DS for prophylaxis -c/w azithromycin for prophylaxis, as per patient next dose is scheduled for Tuesday next week 8-DVT prophylaxis -thrombocytopenia -SCDs for now
--- NOTE | 2017-05-17 08:36 | RAD ---
HISTORY: chest pain COMPARISON: Frontal chest 05/16/2017. FINDINGS: Port-A-Cath in good apparent position once again LUNGS: No active pulmonary disease. PLEURA: No significant pleural effusion identified, no pneumothorax apparent. CARDIOVASCULAR: Cardiac silhouette is stable in appearance with prominent peritracheal soft tissue again appreciated reflective of lymphadenopathy seen in prior chest CT 04/25/2017 with greater detail. OSSEOUS STRUCTURES: No significant abnormalities. VISUALIZED UPPER ABDOMEN: Normal. OTHER FINDINGS: None. IMPRESSION: No interval acute cardiopulmonary disease. Prior paratracheal soft tissue reiterated.
[2017-05-17] MEDS ORDERED: CEFTRIAXONE IVPB SCH (09:00)
[2017-05-17] MEDS ORDERED: Tmp-Smz 800 mg-160 mg DS Tab PO SCH (09:00)
[2017-05-17] MEDS ORDERED: PED IVPB SCH (09:00)
--- NOTE | 2017-05-17 09:49 | CP.PCM.CON ---
History of Present Illness - History of Present Illness History of Present Illness: Infectious Disease Consultation Note- asked to see this patient at the request of the family practice team for fever in HIV patietn recenly diagnosed with Hodgkin's Lymphoma. HPI- Patient known to me from his last admission here 2 weeks ago. patient is a 37 year old male with PMH of HIV ( VL undetectable, CD4-17 , follows up at [facility] with and is compliant with his HAART meds). last admission patient was admitted with c/o abd. discomfort and diarrhea and fevers. he had extensive work up done to rule out infections including opportunistic infections and all blood and urine cx were negative. bartonella serology -neg stool cx and o and p -neg giardia Ag- neg pt. was on IV empiric antibiotics ( zosyn and flagyl) last admission until all his cx were reported negative and he was spiking temps still on those antibiotics. abd ct report on that admission was reported as liver lesions and splenomegaly as well as lymphadenopathy. patient was found to have Hodgkin's lymphoma as per pathologist report of liver lesion biopsy. Pt. was d/c home as per family practice team and was to f/u with heme/onc Estela Enriquez. Pt. explains that in the past 2 days he has noticed edema in the feet and more abdominal distention adn hence he got concerned. he also mentions that he has been having 1-2 times daily fever at home as well. He explains he had his port placed yesterday and wishes to start his chemo. He denies any cough , denies any chest pain, denies any sob, denies any dysurea , denies any further diarrhea. denies any nausea or vomiting. states he has good appetite and is eating well. PMD: Laura at [facility] Hemo/Onc Dr. Palmer PMHx: HIV, low CD4(17/ tested on 04/25/17), Vitiligo, recent diagnosed Hodgkins Lymphoma stage 4 ( on Tuesday05/09/17 per Hemo/Onc Dr. Palmer) Meds: Stribild [phone], Azithromycin 1200mg Qweekly( next dose scheduled for Tuesday of next week) , Bactrim DS 800-160 mg QD ALL: NKDA PsurgHx: buttock implants FamilyHx: father heart disease, mother healthy Socialhx: social ETOH, denies Tobacco/drug abuse Review of Systems - Review of Systems Review of Systems: ROS_ LE edema , + fever for past 3-4 week persistent daily, no cough, denies any sob , denies gulshan ehst pain, + abdominal distention, no diarrhea, no nausea or vomiting no dysurea Past Patient History - Infectious Disease Hx of Infectious Diseases: None - Past Medical History & Family History Past Medical History?: Yes - Past Social History Alcohol: None Drugs: Denies - CARDIAC Hx Cardiac Disorders: No - PULMONARY Hx Respiratory Disorders: No - NEUROLOGICAL Hx Neurological Disorder: No - HEENT Hx Blind: No - RENAL Hx Chronic Kidney Disease: No - ENDOCRINE/METABOLIC Hx Endocrine Disorders: No - HEMATOLOGICAL/ONCOLOGICAL Hx Human Immunodeficiency Virus (HIV): Yes (vl undetectable) Hx Lymphoma: Yes (Hodgkin's Lymphoma) - INTEGUMENTARY Hx Dermatological Problems: No - MUSCULOSKELETAL/RHEUMATOLOGICAL Hx Musculoskeletal Disorders: No Hx Falls: No - GASTROINTESTINAL Hx Gastrointestinal Disorders: No - GENITOURINARY/GYNECOLOGICAL Hx Genitourinary Disorders: No - PSYCHIATRIC Hx Emotional Abuse: No Hx Physical Abuse: No - SURGICAL HISTORY Hx Surgeries: No Other/Comment: STOMACH BIOPSY - ANESTHESIA Hx Anesthesia: Yes Hx Anesthesia Reactions: No Hx Malignant Hyperthermia: No Meds Allergies/Adverse Reactions: Allergies Allergy/AdvReac Type Severity Reaction Status Date / Time Mortin Allergy Mild RASH Uncoded 05/16/17 18:37 - Medications Medications: Current Medications Acetaminophen (Tylenol 325mg Tab) 650 mg PO Q4 PRN PRN Reason: Fever >100.4 F Last Admin: 05/17/17 06:12 Dose: 650 mg Home Med (Patient's Own Medication) 1 unit PO DAILY DARRION Trimethoprim/Sulfamethoxazole (Bactrim Ds Tab) 1 tab PO DAILY DARRION PRN Reason: Protocol Last Admin: 05/17/17 08:31 Dose: 1 tab Physical Exam - Constitutional Appears: No Acute Distress - Head Exam Head Exam: ATRAUMATIC - Eye Exam Eye Exam: EOMI, PERRL - ENT Exam ENT Exam: Normal Oropharynx - Neck Exam Neck exam: Positive for: Full Rom - Respiratory Exam Respiratory Exam: Clear to Auscultation Bilateral, NORMAL BREATHING PATTERN - Cardiovascular Exam Cardiovascular Exam: RRR, +S1, +S2 - GI/Abdominal Exam Additional comments: Abdominal distention present + Bowel sounds No tenderness to palpation soft No guarding no rebound - Extremities Exam Additional comments: trace LE edema b/l feet no tenderness. - Neurological Exam Neurological exam: Alert, Oriented x3 Results - Vital Signs Recent Vital Signs: Last Vital Signs Temp 102.3 F H 05/17/17 07:42 Pulse 130 H 05/17/17 07:42 Resp 18 05/17/17 07:42 BP 105/58 L 05/17/17 07:42 Pulse Ox 96 05/17/17 07:42 - Labs Result Diagrams: 05/17/17 13:04 05/16/17 20:00 Labs: Laboratory Results - last 24 hr 05/16/17 05/16/17 05/16/17 20:00 20:00 20:00 WBC 3.5 L RBC 2.86 L Hgb 7.2 L Hct 22.3 L MCV 78.2 L MCH 25.2 L MCHC 32.2 L RDW 19.3 H Plt Count 96 L MPV 10.7 Neut % (Auto) 82.7 H Lymph % (Auto) 5.8 L [place] % (Auto) 11.3 H Eos % (Auto) 0.0 Baso % (Auto) 0.2 Neut # (Auto) 2.9 Lymph # (Auto) 0.2 L [place] # (Auto) 0.4 Eos # (Auto) 0.0 Baso # (Auto) 0.0 PT 22.5 H INR 2.0 H APTT 42.3 H Sodium 134 Potassium 4.8 Chloride 98 Carbon Dioxide 23 Anion Gap 18 BUN 16 Creatinine 0.6 L Est GFR ( Amer) > 60 Est GFR (Non-Af Amer) > 60 Random Glucose 169 H Lactic Acid Calcium 8.4 Total Bilirubin 2.1 H AST 37 ALT 53 Alkaline Phosphatase 574 H D Troponin I < 0.0120 NT-Pro-B Natriuret Pep 245 Total Protein 5.8 L Albumin 2.5 L Globulin 3.3 Albumin/Globulin Ratio 0.8 L Blood Type Antibody Screen Crossmatch BBK History Checked 05/16/17 05/16/17 20:00 20:00 WBC RBC Hgb Hct MCV MCH MCHC RDW Plt Count MPV Neut % (Auto) Lymph % (Auto) [place] % (Auto) Eos % (Auto) Baso % (Auto) Neut # (Auto) Lymph # (Auto) [place] # (Auto) Eos # (Auto) Baso # (Auto) PT INR APTT Sodium Potassium Chloride Carbon Dioxide Anion Gap BUN Creatinine Est GFR ( Amer) Est GFR (Non-Af Amer) Random Glucose Lactic Acid 1.9 Calcium Total Bilirubin AST ALT Alkaline Phosphatase Troponin I NT-Pro-B Natriuret Pep Total Protein Albumin Globulin Albumin/Globulin Ratio Blood Type O POSITIVE Antibody Screen Negative Crossmatch See Detail BBK History Checked No verified bt Laboratory Results - last 72 hr 05/16/17 05/16/17 05/16/17 20:00 20:00 20:00 WBC 3.5 L RBC 2.86 L Hgb 7.2 L Hct 22.3 L MCV 78.2 L MCH 25.2 L MCHC 32.2 L RDW 19.3 H Plt Count 96 L MPV 10.7 Neut % (Auto) 82.7 H Lymph % (Auto) 5.8 L [place] % (Auto) 11.3 H Eos % (Auto) 0.0 Baso % (Auto) 0.2 Neut # (Auto) 2.9 Lymph # (Auto) 0.2 L [place] # (Auto) 0.4 Eos # (Auto) 0.0 Baso # (Auto) 0.0 PT 22.5 H INR 2.0 H APTT 42.3 H Sodium 134 Potassium 4.8 Chloride 98 Carbon Dioxide 23 Anion Gap 18 BUN 16 Creatinine 0.6 L Est GFR ( Amer) > 60 Est GFR (Non-Af Amer) > 60 Random Glucose 169 H Lactic Acid Calcium 8.4 Total Bilirubin 2.1 H AST 37 ALT 53 Alkaline Phosphatase 574 H D Lactate Dehydrogenase Total Creatine Kinase Troponin I < 0.0120 NT-Pro-B Natriuret Pep 245 Total Protein 5.8 L Albumin 2.5 L Globulin 3.3 Albumin/Globulin Ratio 0.8 L Procalcitonin Urine Color Urine Clarity Urine pH Ur Specific [place] Urine Protein Urine Glucose (UA) Urine Ketones Urine Blood Urine Nitrate Urine Bilirubin Urine Urobilinogen Ur Leukocyte Esterase Urine RBC (Auto) Urine Microscopic WBC Ur Squamous Epith Cells Urine Bacteria Blood Type Antibody Screen Crossmatch BBK History Checked 05/16/17 05/16/17 05/16/17 20:00 20:00 23:48 WBC RBC Hgb Hct MCV MCH MCHC RDW Plt Count MPV Neut % (Auto) Lymph % (Auto) [place] % (Auto) Eos % (Auto) Baso % (Auto) Neut # (Auto) Lymph # (Auto) [place] # (Auto) Eos # (Auto) Baso # (Auto) PT INR APTT Sodium Potassium Chloride Carbon Dioxide Anion Gap BUN Creatinine Est GFR ( Amer) Est GFR (Non-Af Amer) Random Glucose Lactic Acid 1.9 Calcium Total Bilirubin AST ALT Alkaline Phosphatase Lactate Dehydrogenase Total Creatine Kinase Troponin I NT-Pro-B Natriuret Pep Total Protein Albumin Globulin Albumin/Globulin Ratio Procalcitonin Urine Color Yellow Urine Clarity Slighty-cloudy Urine pH 5.0 Ur Specific [place] 1.017 Urine Protein Negative Urine Glucose (UA) Neg Urine Ketones Negative Urine Blood Negative Urine Nitrate Negative Urine Bilirubin Negative Urine Urobilinogen 0.2-1.0 Ur Leukocyte Esterase Neg Urine RBC (Auto) 3 Urine Microscopic WBC 1 Ur Squamous Epith Cells < 1 Urine Bacteria Rare Blood Type O POSITIVE Antibody Screen Negative Crossmatch See Detail BBK History Checked No verified bt 05/17/17 05/17/17 05/17/17 13:04 13:04 13:04 WBC 2.8 L RBC 3.30 L Hgb 8.6 L Hct 26.3 L MCV 79.8 L MCH 26.0 L MCHC 32.6 L RDW 18.2 H Plt Count 71 L D MPV Neut % (Auto) Lymph % (Auto) [place] % (Auto) Eos % (Auto) Baso % (Auto) Neut # (Auto) Lymph # (Auto) [place] # (Auto) Eos # (Auto) Baso # (Auto) PT INR APTT Sodium Potassium Chloride Carbon Dioxide Anion Gap BUN Creatinine Est GFR ( Amer) Est GFR (Non-Af Amer) Random Glucose Lactic Acid Calcium Total Bilirubin AST ALT Alkaline Phosphatase Lactate Dehydrogenase 375 Total Creatine Kinase Troponin I NT-Pro-B Natriuret Pep Total Protein Albumin Globulin Albumin/Globulin Ratio Procalcitonin 8.19 H Urine Color Urine Clarity Urine pH Ur Specific [place] Urine Protein Urine Glucose (UA) Urine Ketones Urine Blood Urine Nitrate Urine Bilirubin Urine Urobilinogen Ur Leukocyte Esterase Urine RBC (Auto) Urine Microscopic WBC Ur Squamous Epith Cells Urine Bacteria Blood Type Antibody Screen Crossmatch BBK History Checked 05/17/17 13:04 WBC RBC Hgb Hct MCV MCH MCHC RDW Plt Count MPV Neut % (Auto) Lymph % (Auto) [place] % (Auto) Eos % (Auto) Baso % (Auto) Neut # (Auto) Lymph # (Auto) [place] # (Auto) Eos # (Auto) Baso # (Auto) PT INR APTT Sodium Potassium Chloride Carbon Dioxide Anion Gap BUN Creatinine Est GFR ( Amer) Est GFR (Non-Af Amer) Random Glucose Lactic Acid Calcium Total Bilirubin AST ALT Alkaline Phosphatase Lactate Dehydrogenase Total Creatine Kinase < 20 L Troponin I NT-Pro-B Natriuret Pep Total Protein Albumin Globulin Albumin/Globulin Ratio Procalcitonin Urine Color Urine Clarity Urine pH Ur Specific [place] Urine Protein Urine Glucose (UA) Urine Ketones Urine Blood Urine Nitrate Urine Bilirubin Urine Urobilinogen Ur Leukocyte Esterase Urine RBC (Auto) Urine Microscopic WBC Ur Squamous Epith Cells Urine Bacteria Blood Type Antibody Screen Crossmatch BBK History Checked Microbiology 04/28/17 12:30 Other: Please Indicate Gram Stain - Final 04/28/17 12:30 Other: Please Indicate Wound Culture - Final Streptococcus Viridans 04/25/17 13:24 Blood-Venous Blood Culture - Final 04/25/17 13:24 Blood-Venous Gram Stain - Final NO GROWTH AFTER 5 DAYS TEST NOT PERFORMED 04/25/17 13:14 Blood-Venous Blood Culture - Final 04/25/17 13:14 Blood-Venous Gram Stain - Final NO GROWTH AFTER 5 DAYS TEST NOT PERFORMED 04/25/17 08:49 Urine,Clean Catch Urine Culture - Final No Growth (<1,000 CFU/ML) 04/22/17 18:00 Urine,Clean Catch Urine Culture - Final No Growth (<1,000 CFU/ML) 04/22/17 08:58 Blood-Venous Blood Culture - Final 04/22/17 08:58 Blood-Venous Gram Stain - Final NO GROWTH AFTER 5 DAYS TEST NOT PERFORMED 04/22/17 08:58 Blood-Venous Blood Culture - Final 04/22/17 08:58 Blood-Venous Gram Stain - Final NO GROWTH AFTER 5 DAYS TEST NOT PERFORMED 04/21/17 11:04 Stool Stool Culture - Final NO SALMONELLA, SHIGELLA OR CAMPYLOBACTER ISOLATED. 04/21/17 11:04 Stool Ova and Parasite Concentrate Exam - Final 04/28/17 12:30 Other: Please Indicate Virus Culture - Preliminary 04/28/17 12:30 Liver Fungal Culture - Preliminary NO FUNGUS GROWTH IN 2 WEEKS. 03/15/18 10:15 Other: Please Indicate Mycobacterial Culture - Preliminary Accession No. : [id number] Patient Name / ID : CHENTE ESCOBAR / [id number] Exam Date : 05/16/2017 20:11:49 ( Approved ) Study Comment : Sex / Age : M / [id number] Creator : simin lizamany Dictator : Mohan Harper MD Looping Inspector : Liver Trimmer : Mohan Harper MD Approver2 : Report Date : 05/16/2017 20:24:23 My Comment : HISTORY: chest pain COMPARISON: Frontal chest 05/16/2017. FINDINGS: Port-A-Cath in good apparent position once again LUNGS: No active pulmonary disease. PLEURA: No significant pleural effusion identified, no pneumothorax apparent. CARDIOVASCULAR: Cardiac silhouette is stable in appearance with prominent peritracheal soft tissue again appreciated reflective of lymphadenopathy seen in prior chest CT with greater detail. OSSEOUS STRUCTURES: No significant abnormalities. VISUALIZED UPPER ABDOMEN: Normal. OTHER FINDINGS: None. IMPRESSION: No interval acute cardiopulmonary disease. Prior paratracheal soft tissue reiterated. Assessment & Plan (1) AIDS (acquired immunodeficiency syndrome), CD4 <=200 Status: Acute (2) Hodgkin's lymphoma Status: Acute (3) Fever Status: Acute - Assessment and Plan (Free Text) Assessment: A/P- 37 year old amle with HIV on stribild Undetectable Viral oad but persistently low cd4 ( last CD4-17), newly diagnosed Hodgkin's lymphoma with persistent fevers. pt. s/p port placement yesterday for initiating chemo for HL. continues to have fevers daily . his fevers are most likely secondary to his Hodgkin's lymphomas as ll his cultures and ID work up from last admission was negative and he continued to be febrile despite IV antibiotics. He was maintained on oral abx to prevent opportunistic infections ( mepron and zithromax) liver biopsy AFB cx and fungus cx negative. Apparently liver bx cx grew only on broth strep viridans , lab did not notify anyone) was reported as per micro report 05/13/2017. plan- check blood cx. check UA and urine cx. start empiric IV vancomyicn pending further results. strep viridans in liver biopsy cx not very conclusive since it only grew in broth and the gram stain was negative. TTE done last admission - no vegetations as per report. continue with zithromax 1200 mg once a week for MAC prophylaxis. mepron for PCP prophylaxis. d/c bactrim as pt. already has leukopenia. pt. to start chemo as soon as possible by heme/onc. All above d/w patient at length and his questions were all answered and he verbalzies full understanding of all above and agrees with above plan of care. All above also d/w DR.Pierre Morelos at length. Thank you for allowing me to take part in the care of this patient.
--- NOTE | 2017-05-17 12:20 | CARD ---
APPROVED REPORT EKG Measurement Heart [id number] <Conclusion> Sinus tachycardia Otherwise normal ECG
--- NOTE | 2017-05-17 12:38 | CP.PCM.CON ---
History of Present Illness - History of Present Illness History of Present Illness: 37 year old male with a history of HIV/AIDS, stage IVb classical hodgkins diagnosed 04/2017, admitted with fevers and LE swelling. The patient is to start ABVD chemotherapy this week but is still awaiting hig PFT. He continues to have night sweats, fatigue, fevers/chills. Past medical history: HIV/AIDS, classical hodgkins lymphoma Past surgical history: Gluteal implants Family history: Denies hematologic and oncologic problems Social history: Denies tobacco, alcohol, and illicit drug use. Allergies: NKA Review of systems: All remaining review of systems including HEENT, cardiovacular, respiratory, gastrointestinal, genitourinary, musculoskeletal, dermatologic, neurologic, and psychiatric are negative unless mentioned in the HPI. Past Patient History - Infectious Disease Hx of Infectious Diseases: None - Past Medical History & Family History Past Medical History?: Yes - Past Social History Alcohol: None Drugs: Denies - CARDIAC Hx Cardiac Disorders: No - PULMONARY Hx Respiratory Disorders: No - NEUROLOGICAL Hx Neurological Disorder: No - HEENT Hx Blind: No - RENAL Hx Chronic Kidney Disease: No - ENDOCRINE/METABOLIC Hx Endocrine Disorders: No - HEMATOLOGICAL/ONCOLOGICAL Hx Human Immunodeficiency Virus (HIV): Yes (vl undetectable) - INTEGUMENTARY Hx Dermatological Problems: No - MUSCULOSKELETAL/RHEUMATOLOGICAL Hx Musculoskeletal Disorders: No Hx Falls: No - GASTROINTESTINAL Hx Gastrointestinal Disorders: No - GENITOURINARY/GYNECOLOGICAL Hx Genitourinary Disorders: No - PSYCHIATRIC Hx Emotional Abuse: No Hx Physical Abuse: No - SURGICAL HISTORY Hx Surgeries: No Other/Comment: STOMACH BIOPSY - ANESTHESIA Hx Anesthesia: Yes Hx Anesthesia Reactions: No Hx Malignant Hyperthermia: No Meds Allergies/Adverse Reactions: Allergies Allergy/AdvReac Type Severity Reaction Status Date / Time Mortin Allergy Mild RASH Uncoded 05/16/17 18:37 - Medications Medications: Current Medications Acetaminophen (Tylenol 325mg Tab) 650 mg PO Q4 PRN PRN Reason: Fever >100.4 F Last Admin: 05/17/17 10:39 Dose: 650 mg Home Med (Patient's Own Medication) 1 unit PO DAILY DARRION Trimethoprim/Sulfamethoxazole (Bactrim Ds Tab) 1 tab PO DAILY DARRION PRN Reason: Protocol Last Admin: 05/17/17 08:31 Dose: 1 tab Physical Exam - Head Exam Head Exam: ATRAUMATIC - Eye Exam Eye Exam: Normal appearance - ENT Exam ENT Exam: Mucous Membranes Dry - Respiratory Exam Respiratory Exam: NORMAL BREATHING PATTERN - Cardiovascular Exam Cardiovascular Exam: +S1, +S2 - GI/Abdominal Exam GI & Abdominal Exam: Normal Bowel Sounds - Extremities Exam Extremities exam: Positive for: pedal edema - Neurological Exam Neurological exam: Oriented x3 - Psychiatric Exam Psychiatric exam: Normal Affect, Normal Mood - Skin Skin Exam: Warm Results - Vital Signs Recent Vital Signs: Last Vital Signs Temp 101.5 F H 05/17/17 12:08 Pulse 134 H 05/17/17 12:08 Resp 18 05/17/17 12:08 BP 107/59 L 05/17/17 12:08 Pulse Ox 95 05/17/17 12:08 - Labs Result Diagrams: 05/18/17 05:10 05/18/17 04:25 Labs: Laboratory Results - last 24 hr 05/16/17 05/16/17 05/16/17 20:00 20:00 20:00 WBC 3.5 L RBC 2.86 L Hgb 7.2 L Hct 22.3 L MCV 78.2 L MCH 25.2 L MCHC 32.2 L RDW 19.3 H Plt Count 96 L MPV 10.7 Neut % (Auto) 82.7 H Lymph % (Auto) 5.8 L [place] % (Auto) 11.3 H Eos % (Auto) 0.0 Baso % (Auto) 0.2 Neut # (Auto) 2.9 Lymph # (Auto) 0.2 L [place] # (Auto) 0.4 Eos # (Auto) 0.0 Baso # (Auto) 0.0 PT 22.5 H INR 2.0 H APTT 42.3 H Sodium 134 Potassium 4.8 Chloride 98 Carbon Dioxide 23 Anion Gap 18 BUN 16 Creatinine 0.6 L Est GFR ( Amer) > 60 Est GFR (Non-Af Amer) > 60 Random Glucose 169 H Lactic Acid Calcium 8.4 Total Bilirubin 2.1 H AST 37 ALT 53 Alkaline Phosphatase 574 H D Troponin I < 0.0120 NT-Pro-B Natriuret Pep 245 Total Protein 5.8 L Albumin 2.5 L Globulin 3.3 Albumin/Globulin Ratio 0.8 L Blood Type Antibody Screen Crossmatch BBK History Checked 05/16/17 05/16/17 20:00 20:00 WBC RBC Hgb Hct MCV MCH MCHC RDW Plt Count MPV Neut % (Auto) Lymph % (Auto) [place] % (Auto) Eos % (Auto) Baso % (Auto) Neut # (Auto) Lymph # (Auto) [place] # (Auto) Eos # (Auto) Baso # (Auto) PT INR APTT Sodium Potassium Chloride Carbon Dioxide Anion Gap BUN Creatinine Est GFR ( Amer) Est GFR (Non-Af Amer) Random Glucose Lactic Acid 1.9 Calcium Total Bilirubin AST ALT Alkaline Phosphatase Troponin I NT-Pro-B Natriuret Pep Total Protein Albumin Globulin Albumin/Globulin Ratio Blood Type O POSITIVE Antibody Screen Negative Crossmatch See Detail BBK History Checked No verified bt Assessment & Plan (1) Hodgkin's lymphoma Assessment and Plan: stage IVb for outpatient ABVD chemotherapy x 6 months Status: Acute (2) Pancytopenia Assessment and Plan: HIV/AIDS and hodgkins lymphoma transfusion support PRN Thank you for this interesting consult. Status: Acute
[2017-05-17 13:12] LABS: HEMOGLOBIN 8.6 g/dL (12.0-18.0); MEAN CELL VOLUME 79.8 fl (80.0-94.0); MEAN CORPUSCULAR HGB CONC 32.6 g/dL (33.0-37.0); RBC 3.3 Mil/uL (4.40-5.90); RED CELL DISTRIBUTION WIDTH 18.2 % (11.5-14.5); WHITE BLOOD COUNT 2.8 K/uL (4.8-10.8)
[2017-05-17 14:56] LABS: SQUAMOUS EPITHIAL < 1 /hpf (0-5); URINE BACTERIA RARE (<OCC); URINE BILIRUBIN NEGATIVE (NEGATIVE); URINE BLOOD NEGATIVE (NEGATIVE); URINE CLARITY SLIGHTY-CLOUDY (Clear); URINE GLUCOSE (UA) NEG (Normal); URINE LEUKOCYTE ESTERASE NEG Leu/uL (Negative); URINE PROTEIN NEGATIVE (NEGATIVE); URINE UROBILINOGEN 0.2-1.0 mg/dL (0.2-1.0)
[2017-05-17 14:58] LABS: URINE COLOR YELLOW (YELLOW)
[2017-05-18 01:36] LABS: SQUAMOUS EPITHIAL < 1 /hpf (0-5); URINE BACTERIA RARE (<OCC); URINE BILIRUBIN SMALL (NEGATIVE); URINE BLOOD NEGATIVE (NEGATIVE); URINE CLARITY SLIGHTY-CLOUDY (Clear); URINE COLOR AMBER (YELLOW); URINE GLUCOSE (UA) NEG (Normal); URINE HYALINE CAST 0-2 /hpf (0-2); URINE LEUKOCYTE ESTERASE NEG Leu/uL (Negative); URINE PROTEIN 30 mg/dL (NEGATIVE)
[2017-05-18 06:07] LABS: BASO % 0.2 % (0.0-2.0); HEMOGLOBIN 8.9 g/dL (12.0-18.0); LYMPH # 0.3 K/uL (1.0-4.3); LYMPH % 9.7 % (20.0-40.0); MEAN CELL VOLUME 79.2 fl (80.0-94.0); MEAN CORPUSCULAR HEMOGLOBIN 26.1 pg (27.0-31.0); MEAN PLATELET VOLUME 9.3 fl (7.2-11.7); MONO # 0.5 K/uL (0.0-0.8); MONO % 20.3 % (0.0-10.0); NEUT # 1.9 K/uL (1.8-7.0); NEUT % 69.8 % (50.0-75.0); NRBC % 0.1 % (0.0-0.0); PLATELET COUNT 62 K/uL (130-400); RED CELL DISTRIBUTION WIDTH 18.4 % (11.5-14.5); WHITE BLOOD COUNT 2.7 K/uL (4.8-10.8)
[2017-05-18 06:17] LABS: ALB/GLOB RATIO 0.7 (1.0-2.1); ALBUMIN 2.3 g/dL (3.5-5.0); ALT/SGPT 46 U/L (21-72); AST/SGOT 35 U/L (17-59); BLOOD UREA NITROGEN 18 mg/dl (9-20); CALCIUM 8.1 mg/dL (8.4-10.2); GFR AFRICAN-AMERICAN > 60; GFR NON-AFRICAN AMERICAN > 60
[2017-05-18] MEDS ORDERED: Metoprolol 1 mg/ml Inj IVP ONE ×2 (08:14→09:08)
[2017-05-18] MEDS ORDERED: Albuterol 0.083% Inhal Sol (2.5 mg/3 mL) UD ONE (08:28)
[2017-05-18] MEDS: Atovaquone 750 mg/5 ml Susp UD PO SCH (08:37)
--- NOTE | 2017-05-18 08:42 | CARD ---
APPROVED REPORT EKG Measurement Heart [id number] [place] [id number] <Conclusion> Sinus tachycardia Otherwise normal ECG
[2017-05-18] MEDS ORDERED: Metoprolol Succinate 50 mg XL Tab PO SCH (09:00)
[2017-05-18] MEDS ORDERED: Metoprolol Succinate 25 mg XL Tab PO SCH (09:01)
[2017-05-18 10:20] LABS: BANDS 2 % (0-2); LYMPHOCYTE 14 % (20-50); MONOCYTE 18 % (0-10); NEUTROPHIL 66 % (42-75); TOTAL CELLS COUNTED 100
[2017-05-18 10:21] LABS: ANISOCYTOSIS SLIGHT; HYPOCHROMIC SLIGHT; LARGE PLATELETS PRESENT; PLATELET ESTIMATE DECREASED (NORMAL); POIKILOCYTOSIS SLIGHT
[2017-05-18 10:22] LABS: SCHISTOCYTES SLIGHT; TEARDROP CELLS SLIGHT
--- NOTE | 2017-05-18 10:48 | CP.PCM.PN ---
Subjective - Date & Time of Evaluation Date of Evaluation: 05/18/17 Time of Evaluation: 13:00 - Subjective Subjective: ID note- Pt. seen and examined today with his mother at his bedside. pt. continues to have temp spikes although lower than before. He states his breathing at times gets sob bc of the distended abdomen. he is eating w/o any nausea. denies any diarrhea. denies any dysurea. Objective - Vital Signs/Intake and Output Vital Signs (last 24 hours): Temp Pulse Resp BP Pulse Ox 102.6 F H 145 H 18 111/65 95 05/18/17 09:35 05/18/17 09:28 05/18/17 07:54 05/18/17 09:28 05/18/17 07:54 - Medications Medications: Current Medications Acetaminophen (Tylenol 325mg Tab) 650 mg PO Q4 PRN PRN Reason: Fever >100.4 F Last Admin: 05/18/17 09:35 Dose: 650 mg Atovaquone (Mepron) 1,500 mg PO DAILY DARRION PRN Reason: Protocol Last Admin: 05/18/17 08:37 Dose: 1,500 mg Azithromycin (Zithromax) 1,200 mg PO QWK DARRION PRN Reason: Protocol Home Med (Patient's Own Medication) 1 unit PO DAILY DARRION Vancomycin HCl 1 gm/ Sodium (Chloride) 250 mls @ 166.667 mls/hr IVPB DAILY DARRION PRN Reason: Protocol Last Admin: 05/18/17 08:37 Dose: 166.667 mls/hr Sodium Chloride (Sodium Chloride 0.9%) 1,000 mls @ 100 mls/hr IV .Q10H DARRION Stop: 05/19/17 09:23 - Labs Labs: - Additional Findings Additional findings: - Constitutional Appears: No Acute Distress - Head Exam Head Exam: ATRAUMATIC - Eye Exam Eye Exam: EOMI, PERRL - ENT Exam ENT Exam: Normal Oropharynx - Neck Exam Neck exam: Positive for: Full Rom - Respiratory Exam Respiratory Exam: no wheezing decreased breath sounds at bases - Cardiovascular Exam Cardiovascular Exam: RRR, +S1, +S2 - GI/Abdominal Exam Additional comments: Abdominal distention present + Bowel sounds No tenderness to palpation soft No guarding no rebound - Extremities Exam Additional comments: trace LE edema b/l feet no tenderness. - Neurological Exam Neurological exam: Alert, Oriented x 3 Laboratory Results - last 72 hr 05/16/17 05/16/17 05/16/17 20:00 20:00 20:00 WBC 3.5 L RBC 2.86 L Hgb 7.2 L Hct 22.3 L MCV 78.2 L MCH 25.2 L MCHC 32.2 L RDW 19.3 H Plt Count 96 L MPV 10.7 Neut % (Auto) 82.7 H Lymph % (Auto) 5.8 L [place] % (Auto) 11.3 H Eos % (Auto) 0.0 Baso % (Auto) 0.2 Neut # (Auto) 2.9 Lymph # (Auto) 0.2 L [place] # (Auto) 0.4 Eos # (Auto) 0.0 Baso # (Auto) 0.0 Neutrophils % (Manual) Band Neutrophils % Lymphocytes % (Manual) Monocytes % (Manual) Platelet Estimate Large Platelets Hypochromasia (manual) Poikilocytosis (manual Anisocytosis (manual) Tear Drop Cells Schistocytes PT 22.5 H INR 2.0 H APTT 42.3 H Sodium 134 Potassium 4.8 Chloride 98 Carbon Dioxide 23 Anion Gap 18 BUN 16 Creatinine 0.6 L Est GFR ( Amer) > 60 Est GFR (Non-Af Amer) > 60 Random Glucose 169 H Lactic Acid Calcium 8.4 Total Bilirubin 2.1 H AST 37 ALT 53 Alkaline Phosphatase 574 H D Lactate Dehydrogenase Total Creatine Kinase Troponin I < 0.0120 NT-Pro-B Natriuret Pep 245 Total Protein 5.8 L Albumin 2.5 L Globulin 3.3 Albumin/Globulin Ratio 0.8 L Procalcitonin Urine Color Urine Clarity Urine pH Ur Specific [place] Urine Protein Urine Glucose (UA) Urine Ketones Urine Blood Urine Nitrate Urine Bilirubin Urine Urobilinogen Ur Leukocyte Esterase Urine RBC (Auto) Urine Microscopic WBC Ur Squamous Epith Cells Urine Bacteria Hyaline Casts Blood Type Antibody Screen Crossmatch BBK History Checked 05/16/17 05/16/17 05/16/17 20:00 20:00 23:48 WBC RBC Hgb Hct MCV MCH MCHC RDW Plt Count MPV Neut % (Auto) Lymph % (Auto) [place] % (Auto) Eos % (Auto) Baso % (Auto) Neut # (Auto) Lymph # (Auto) [place] # (Auto) Eos # (Auto) Baso # (Auto) Neutrophils % (Manual) Band Neutrophils % Lymphocytes % (Manual) Monocytes % (Manual) Platelet Estimate Large Platelets Hypochromasia (manual) Poikilocytosis (manual Anisocytosis (manual) Tear Drop Cells Schistocytes PT INR APTT Sodium Potassium Chloride Carbon Dioxide Anion Gap BUN Creatinine Est GFR ( Amer) Est GFR (Non-Af Amer) Random Glucose Lactic Acid 1.9 Calcium Total Bilirubin AST ALT Alkaline Phosphatase Lactate Dehydrogenase Total Creatine Kinase Troponin I NT-Pro-B Natriuret Pep Total Protein Albumin Globulin Albumin/Globulin Ratio Procalcitonin Urine Color Yellow Urine Clarity Slighty-cloudy Urine pH 5.0 Ur Specific [place] 1.017 Urine Protein Negative Urine Glucose (UA) Neg Urine Ketones Negative Urine Blood Negative Urine Nitrate Negative Urine Bilirubin Negative Urine Urobilinogen 0.2-1.0 Ur Leukocyte Esterase Neg Urine RBC (Auto) 3 Urine Microscopic WBC 1 Ur Squamous Epith Cells < 1 Urine Bacteria Rare Hyaline Casts Blood Type O POSITIVE Antibody Screen Negative Crossmatch See Detail BBK History Checked No verified bt 05/17/17 05/17/17 05/17/17 13:04 13:04 13:04 WBC 2.8 L RBC 3.30 L Hgb 8.6 L Hct 26.3 L MCV 79.8 L MCH 26.0 L MCHC 32.6 L RDW 18.2 H Plt Count 71 L D MPV Neut % (Auto) Lymph % (Auto) [place] % (Auto) Eos % (Auto) Baso % (Auto) Neut # (Auto) Lymph # (Auto) [place] # (Auto) Eos # (Auto) Baso # (Auto) Neutrophils % (Manual) Band Neutrophils % Lymphocytes % (Manual) Monocytes % (Manual) Platelet Estimate Large Platelets Hypochromasia (manual) Poikilocytosis (manual Anisocytosis (manual) Tear Drop Cells Schistocytes PT INR APTT Sodium Potassium Chloride Carbon Dioxide Anion Gap BUN Creatinine Est GFR ( Amer) Est GFR (Non-Af Amer) Random Glucose Lactic Acid Calcium Total Bilirubin AST ALT Alkaline Phosphatase Lactate Dehydrogenase 375 Total Creatine Kinase Troponin I NT-Pro-B Natriuret Pep Total Protein Albumin Globulin Albumin/Globulin Ratio Procalcitonin 8.19 H Urine Color Urine Clarity Urine pH Ur Specific [place] Urine Protein Urine Glucose (UA) Urine Ketones Urine Blood Urine Nitrate Urine Bilirubin Urine Urobilinogen Ur Leukocyte Esterase Urine RBC (Auto) Urine Microscopic WBC Ur Squamous Epith Cells Urine Bacteria Hyaline Casts Blood Type Antibody Screen Crossmatch BBK History Checked 05/17/17 05/17/17 05/18/17 13:04 23:46 04:25 WBC RBC Hgb Hct MCV MCH MCHC RDW Plt Count MPV Neut % (Auto) Lymph % (Auto) [place] % (Auto) Eos % (Auto) Baso % (Auto) Neut # (Auto) Lymph # (Auto) [place] # (Auto) Eos # (Auto) Baso # (Auto) Neutrophils % (Manual) Band Neutrophils % Lymphocytes % (Manual) Monocytes % (Manual) Platelet Estimate Large Platelets Hypochromasia (manual) Poikilocytosis (manual Anisocytosis (manual) Tear Drop Cells Schistocytes PT INR APTT Sodium 133 Potassium 4.6 Chloride 99 Carbon Dioxide 21 L Anion Gap 18 BUN 18 Creatinine 0.8 Est GFR ( Amer) > 60 Est GFR (Non-Af Amer) > 60 Random Glucose 97 Lactic Acid Calcium 8.1 L Total Bilirubin 3.7 H AST 35 ALT 46 Alkaline Phosphatase 566 H Lactate Dehydrogenase Total Creatine Kinase < 20 L Troponin I NT-Pro-B Natriuret Pep Total Protein 5.6 L Albumin 2.3 L Globulin 3.3 Albumin/Globulin Ratio 0.7 L Procalcitonin Urine Color [place] Urine Clarity Slighty-cloudy Urine pH 5.0 Ur Specific [place] 1.025 Urine Protein 30 Urine Glucose (UA) Neg Urine Ketones Negative Urine Blood Negative Urine Nitrate Negative Urine Bilirubin Small Urine Urobilinogen 4.0 Ur Leukocyte Esterase Neg Urine RBC (Auto) 7 H Urine Microscopic WBC 1 Ur Squamous Epith Cells < 1 Urine Bacteria Rare Hyaline Casts 0-2 Blood Type Antibody Screen Crossmatch BBK History Checked 05/18/17 05/18/17 05:10 11:28 WBC 2.7 L RBC 3.40 L Hgb 8.9 L Hct 26.9 L MCV 79.2 L MCH 26.1 L MCHC 33.0 RDW 18.4 H Plt Count 62 L MPV 9.3 Neut % (Auto) 69.8 Lymph % (Auto) 9.7 L [place] % (Auto) 20.3 H Eos % (Auto) 0.0 Baso % (Auto) 0.2 Neut # (Auto) 1.9 Lymph # (Auto) 0.3 L [place] # (Auto) 0.5 Eos # (Auto) 0.0 Baso # (Auto) 0.0 Neutrophils % (Manual) 66 Band Neutrophils % 2 Lymphocytes % (Manual) 14 L Monocytes % (Manual) 18 H Platelet Estimate Decreased L Large Platelets Present Hypochromasia (manual) Slight Poikilocytosis (manual Slight Anisocytosis (manual) Slight Tear Drop Cells Slight Schistocytes Slight PT 28.3 H D INR 2.5 H D APTT Sodium Potassium Chloride Carbon Dioxide Anion Gap BUN Creatinine Est GFR ( Amer) Est GFR (Non-Af Amer) Random Glucose Lactic Acid Calcium Total Bilirubin AST ALT Alkaline Phosphatase Lactate Dehydrogenase Total Creatine Kinase Troponin I NT-Pro-B Natriuret Pep Total Protein Albumin Globulin Albumin/Globulin Ratio Procalcitonin Urine Color Urine Clarity Urine pH Ur Specific [place] Urine Protein Urine Glucose (UA) Urine Ketones Urine Blood Urine Nitrate Urine Bilirubin Urine Urobilinogen Ur Leukocyte Esterase Urine RBC (Auto) Urine Microscopic WBC Ur Squamous Epith Cells Urine Bacteria Hyaline Casts Blood Type Antibody Screen Crossmatch BBK History Checked Microbiology 05/16/17 20:15 Blood Blood Culture - Preliminary NO GROWTH AFTER 24 HOURS 05/16/17 19:45 Blood Blood Culture - Preliminary NO GROWTH AFTER 24 HOURS Microbiology 04/28/17 12:30 Other: Please Indicate Gram Stain - Final 04/28/17 12:30 Other: Please Indicate Wound Culture - Final Streptococcus Viridans 04/25/17 13:24 Blood-Venous Blood Culture - Final 04/25/17 13:24 Blood-Venous Gram Stain - Final NO GROWTH AFTER 5 DAYS TEST NOT PERFORMED 04/25/17 13:14 Blood-Venous Blood Culture - Final 04/25/17 13:14 Blood-Venous Gram Stain - Final NO GROWTH AFTER 5 DAYS TEST NOT PERFORMED 04/25/17 08:49 Urine,Clean Catch Urine Culture - Final No Growth (<1,000 CFU/ML) 04/22/17 18:00 Urine,Clean Catch Urine Culture - Final No Growth (<1,000 CFU/ML) 04/22/17 08:58 Blood-Venous Blood Culture - Final 04/22/17 08:58 Blood-Venous Gram Stain - Final NO GROWTH AFTER 5 DAYS TEST NOT PERFORMED 04/22/17 08:58 Blood-Venous Blood Culture - Final 04/22/17 08:58 Blood-Venous Gram Stain - Final NO GROWTH AFTER 5 DAYS TEST NOT PERFORMED 04/28/17 12:30 Other: Please Indicate Virus Culture - Preliminary 04/28/17 12:30 Liver Fungal Culture - Preliminary NO FUNGUS GROWTH IN 2 WEEKS. Assessment and Plan (1) AIDS (acquired immunodeficiency syndrome), CD4 <=200 Status: Acute (2) Hodgkin's lymphoma Status: Acute (3) Fever Status: Acute - Assessment and Plan (Free Text) Assessment: A/P- 37 year old amle with HIV on stribild Undetectable Viral oad but persistently low cd4 ( last CD4-17), newly diagnosed Hodgkin's lymphoma with persistent fevers. pt. s/p port placement yesterday for initiating chemo for HL. continues to have fevers daily . his fevers are most likely secondary to his Hodgkin's lymphomas as ll his cultures and ID work up from last admission was negative and he continued to be febrile despite IV antibiotics. He was maintained on oral abx to prevent opportunistic infections ( mepron and zithromax) liver biopsy AFB cx and fungus cx negative. Apparently liver bx cx grew only on broth strep viridans , lab did not notify anyone. was reported as per micro report 05/13/2017. blood cx 05/16/2017- neg x 2 plan- continue with empiric IV vancomycin pending further results. day #2 keep vanco trough <15. also advise to start empiric meropnem to cover for nosocomial pathogens since pt. was recently hospitalized and is immune suppressed pending further results. strep viridans in liver biopsy cx not very conclusive since it only grew in broth and the gram stain was negative. TTE done last admission - no vegetations as per report. continue with zithromax 1200 mg once a week for MAC prophylaxis. mepron for PCP prophylaxis. check another cxr or chest CT. check another echo rule out any veg. pt. to start chemo as soon as possible by heme/onc. All above d/w patient at length and his questions were all answered and he verbalizes full understanding of all above and agrees with above plan of care. All above also d/w DR.Pierre Morelos at length.
--- NOTE | 2017-05-18 10:57 | CP.PCM.PN ---
Subjective - Date & Time of Evaluation Date of Evaluation: 05/18/17 Time of Evaluation: 07:30 - Subjective Subjective: Patient seen this morning at bedside, reports feeling better, still tachycardic and febrile during night. Denies chest or abdominal pain, no sob, cough, no N/V/ chills. Normal BM and no urinary symptoms. Afebrile now. Pending PFT due to tachycardia. Objective - Vital Signs/Intake and Output Vital Signs (last 24 hours): Temp Pulse Resp BP Pulse Ox 102.6 F H 145 H 18 111/65 95 05/18/17 09:35 05/18/17 09:28 05/18/17 07:54 05/18/17 09:28 05/18/17 07:54 - Medications Medications: Current Medications Acetaminophen (Tylenol 325mg Tab) 650 mg PO Q4 PRN PRN Reason: Fever >100.4 F Last Admin: 05/18/17 09:35 Dose: 650 mg Atovaquone (Mepron) 1,500 mg PO DAILY DARRION PRN Reason: Protocol Last Admin: 05/18/17 08:37 Dose: 1,500 mg Azithromycin (Zithromax) 1,200 mg PO QWK DARRION PRN Reason: Protocol Home Med (Patient's Own Medication) 1 unit PO DAILY DARRION Vancomycin HCl 1 gm/ Sodium (Chloride) 250 mls @ 166.667 mls/hr IVPB DAILY DARRION PRN Reason: Protocol Last Admin: 05/18/17 08:37 Dose: 166.667 mls/hr Sodium Chloride (Sodium Chloride 0.9%) 1,000 mls @ 100 mls/hr IV .Q10H DARRION Stop: 05/19/17 09:23 - Labs Labs: 05/18/17 05:10 05/18/17 04:25 PT 22.5 Seconds (9.8-13.1) H 05/16/17 20:00 INR 2.0 (0.9-1.2) H 05/16/17 20:00 APTT 42.3 Seconds (25.6-37.1) H 05/16/17 20:00 - Constitutional Appears: No Acute Distress - Head Exam Head Exam: NORMAL INSPECTION - Eye Exam Eye Exam: EOMI, PERRL - Respiratory Exam Respiratory Exam: Clear to Ausculation Bilateral, NORMAL BREATHING PATTERN. absent: Wheezes - Cardiovascular Exam Cardiovascular Exam: Tachycardia, REGULAR RHYTHM, +S1, +S2 - GI/Abdominal Exam GI & Abdominal Exam: Soft, Normal Bowel Sounds. absent: Distended, Tenderness - Extremities Exam Extremities Exam: absent: Calf Tenderness - Neurological Exam Neurological Exam: Awake, CN II-XII Intact, Oriented x3 - Psychiatric Exam Psychiatric exam: Normal Mood Assessment and Plan - Assessment and Plan (Free Text) Assessment: 37 y/o male with PMHx of HIV/AIDS, Low CD4 count, and recent diagnosed Hodgkins Lymphoma stage 4 admitted with pancytopenia, acute on chronic anemia, and persistent fevers. ID and Heme/onc on board. For outpatient chemotherapy once D/ C. TCU recommended. Plan: 1-Microcytic Anemia, Acute on chronic - H/H 8.9/26.9 - likely 2/2 malignancy, no evidence of acute bleeding - s/p 2 units of PRBC - Heme/Onc Dr Palmer consulted, recs appreciated 2-Fevers - persistent for 2-3 weeks - could be 2/2 malignancy - blood culture neg 24 hrs - UA negative - procalcitonin 8.19 (elevated); f/u repeat - Tylenol PRN - Hematology/Onc Dr Palmer consulted - ID Dr Rich consult placed. - f/u fungus cx 3 -Increased In abdominal Girth -physical exam showed evidence of possible ascitis -abdominal US to check for ascitis - empiric treatment with antibiotics for SBP 4 -Coagulopathy with elevated INR -INR:2.0 -f/u repeat PT/INR 5 -Thrombocytopenia -most likely 2/2 splenomegaly vs malignancy vs both -no active bleeding noted -f/u plt count 6 -HIV infection -lymphocyte panel on 04/25/17 -CD4 count 17, % CD4 4 % -c/w home med - ID Dr Rich on board, recs appreciated. - d/c Bactrim - Start Meprom -c/w azithromycin for prophylaxis, 1200 mg every Tuesday (next dose next week) 7 -Lower extremities edema - most likely to be 2/2 hepatosplenomegaly - normal Echo 8 -DVT prophylaxis -thrombocytopenia -SCDs for now
[2017-05-18] MEDS: Sodium Chloride 0.9% 1,000 ML IV SCH ×2 (11:36→21:16)
[2017-05-18 11:45] LABS: INR 2.5 (0.9-1.2); PROTHROMBIN TIME 28.3 Seconds (9.8-13.1)
--- NOTE | 2017-05-18 12:16 | CP.PCM.PN ---
Subjective - Date & Time of Evaluation Date of Evaluation: 05/18/17 Time of Evaluation: 12:00 - Subjective Subjective: Feels feverish PFT held due to tachycardia Objective - Vital Signs/Intake and Output Vital Signs (last 24 hours): Temp Pulse Resp BP Pulse Ox 99.2 F 116 H 18 106/68 96 05/18/17 12:11 05/18/17 12:11 05/18/17 12:11 05/18/17 12:11 05/18/17 12:11 - Medications Medications: Current Medications Acetaminophen (Tylenol 325mg Tab) 650 mg PO Q4 PRN PRN Reason: Fever >100.4 F Last Admin: 05/18/17 09:35 Dose: 650 mg Atovaquone (Mepron) 1,500 mg PO DAILY DARRION PRN Reason: Protocol Last Admin: 05/18/17 08:37 Dose: 1,500 mg Azithromycin (Zithromax) 1,200 mg PO QWK DARRION PRN Reason: Protocol Home Med (Patient's Own Medication) 1 unit PO DAILY DARRION Vancomycin HCl 1 gm/ Sodium (Chloride) 250 mls @ 166.667 mls/hr IVPB DAILY DARRION PRN Reason: Protocol Last Admin: 05/18/17 08:37 Dose: 166.667 mls/hr Sodium Chloride (Sodium Chloride 0.9%) 1,000 mls @ 100 mls/hr IV .Q10H DARRION Stop: 05/19/17 09:23 Last Admin: 05/18/17 11:36 Dose: 100 mls/hr - Labs Labs: 05/18/17 05:10 05/18/17 04:25 PT 28.3 Seconds (9.8-13.1) H D 05/18/17 11:28 INR 2.5 (0.9-1.2) H D 05/18/17 11:28 APTT 42.3 Seconds (25.6-37.1) H 05/16/17 20:00 - Head Exam Head Exam: ATRAUMATIC - Eye Exam Eye Exam: Normal appearance - ENT Exam ENT Exam: Mucous Membranes Dry - Respiratory Exam Respiratory Exam: NORMAL BREATHING PATTERN - Cardiovascular Exam Cardiovascular Exam: +S1, +S2 - GI/Abdominal Exam GI & Abdominal Exam: Normal Bowel Sounds - Extremities Exam Extremities Exam: Pedal Edema Assessment and Plan (1) Hodgkin's lymphoma Assessment & Plan: PFT held due to tachycardia if PFT cannot be done, will attempt as outpatient at a later date for outpatient chemotherapy once D/C'd Status: Acute (2) Pancytopenia Assessment & Plan: HIV/AIDS and hodgkins lymphoma Status: Acute
[2017-05-18] MEDS: STRIBILD PO SCH (12:17)
[2017-05-18] MEDS: Metoprolol Succinate 25 mg XL Tab PO SCH (16:17)
[2017-05-18] MEDS ORDERED: Meropenem 1 GM in Sodium Chloride 0.9% 100 ML IVPB SCH (18:45)
[2017-05-19] MEDS: Meropenem 1 GM in Sodium Chloride 0.9% 100 ML IVPB SCH ×3 (05:05→21:37)
[2017-05-19] MEDS: Sodium Chloride 0.9% 1,000 ML IV SCH ×2 (05:30→15:37)
[2017-05-19 07:01] LABS: BASO % 0.1 % (0.0-2.0); HEMOGLOBIN 9.2 g/dL (12.0-18.0); LYMPH # 0.2 K/uL (1.0-4.3); LYMPH % 7.4 % (20.0-40.0); MEAN CELL VOLUME 80.7 fl (80.0-94.0); MEAN CORPUSCULAR HEMOGLOBIN 26.6 pg (27.0-31.0); MEAN PLATELET VOLUME 10.1 fl (7.2-11.7); MONO # 0.5 K/uL (0.0-0.8); MONO % 19.3 % (0.0-10.0); NEUT # 1.8 K/uL (1.8-7.0); NEUT % 73.2 % (50.0-75.0); NRBC % 0.3 % (0.0-0.0); RBC 3.44 Mil/uL (4.40-5.90); RED CELL DISTRIBUTION WIDTH 18.1 % (11.5-14.5); WHITE BLOOD COUNT 2.5 K/uL (4.8-10.8)
[2017-05-19 07:18] LABS: BLOOD UREA NITROGEN 18 mg/dl (9-20); GFR AFRICAN-AMERICAN > 60; GFR NON-AFRICAN AMERICAN > 60
[2017-05-19 07:31] LABS: % CD4 (T HELPER CELL) 6 Percent (30-61); % CD8 (SUPPRESSOR T CELL) 72 Percent (12-42); ABSOLUTE CD4 CELLS <20 Cells/mcL (490-1740); ABSOLUTE CD8 CELLS 205 Cells/mcL (180-1170); ABSOLUTE LYMPHOCYTES 285 Cells/mcL (850-3900); HELPER/SUPPRESSOR RATIO 0.08 Ratio (0.86-5.00)
[2017-05-19] MEDS: Atovaquone 750 mg/5 ml Susp UD PO SCH (08:27)
[2017-05-19] MEDS: Metoprolol Succinate 25 mg XL Tab PO SCH (08:28)
[2017-05-19] MEDS: STRIBILD PO SCH (08:32)
--- NOTE | 2017-05-19 09:58 | CP.PCM.PN ---
Subjective - Date & Time of Evaluation Date of Evaluation: 05/19/17 Time of Evaluation: 07:13 - Subjective Subjective: Patient seen this morning at bedside, reports feeling much better, still tachycardic and spiking fever. Denies chest or abdominal pain, no sob, cough, no N/V/chills. Normal BM and no urinary symptoms. Going for chemo as outpatient. Objective - Vital Signs/Intake and Output Vital Signs (last 24 hours): Temp Pulse Resp BP Pulse Ox 102.9 F H 142 H 22 109/64 96 05/19/17 08:26 05/19/17 08:28 05/19/17 07:55 05/19/17 08:28 05/19/17 07:55 - Medications Medications: Current Medications Acetaminophen (Tylenol 325mg Tab) 650 mg PO Q4 PRN PRN Reason: Fever >100.4 F Last Admin: 05/19/17 08:26 Dose: 650 mg Home Med (Patient's Own Medication) 1 unit PO DAILY [facility] Last Admin: 05/19/17 08:32 Dose: 1 unit Vancomycin HCl 1 gm/ Sodium (Chloride) 250 mls @ 166.667 mls/hr IVPB DAILY DARRION PRN Reason: Protocol Last Admin: 05/19/17 08:35 Dose: 166.667 mls/hr Meropenem 1 gm/ Sodium (Chloride) 100 mls @ 100 mls/hr IVPB Q8@0500,1300,2100 DARRION PRN Reason: Protocol Last Admin: 05/19/17 05:05 Dose: 100 mls/hr Metoprolol Succinate (Toprol Xl) 25 mg PO DAILY [facility] Last Admin: 05/19/17 08:28 Dose: 25 mg Phytonadione (Vitamin K Tab) 5 mg PO ONCE ONE Stop: 05/19/17 09:37 - Labs Labs: 05/19/17 05:30 05/19/17 05:30 PT 28.3 Seconds (9.8-13.1) H D 05/18/17 11:28 INR 2.5 (0.9-1.2) H D 05/18/17 11:28 APTT 42.3 Seconds (25.6-37.1) H 05/16/17 20:00 - Constitutional Appears: No Acute Distress - Head Exam Head Exam: NORMAL INSPECTION - Eye Exam Eye Exam: EOMI, PERRL - Respiratory Exam Respiratory Exam: Clear to Ausculation Bilateral, NORMAL BREATHING PATTERN. absent: Respiratory Distress - Cardiovascular Exam Cardiovascular Exam: Tachycardia, REGULAR RHYTHM, +S1, +S2 - GI/Abdominal Exam GI & Abdominal Exam: Distended, Normal Bowel Sounds. absent: Tenderness - Extremities Exam Extremities Exam: absent: Calf Tenderness, Pedal Edema - Neurological Exam Neurological Exam: Alert, CN II-XII Intact, Oriented x3 - Skin Skin Exam: Warm Assessment and Plan - Assessment and Plan (Free Text) Assessment: 37 y/o male with PMHx of HIV/AIDS, Low CD4 count, and recent diagnosed Hodgkins Lymphoma stage 4 admitted with pancytopenia, acute on chronic anemia, and persistent fevers. ID and Heme/onc on board. For outpatient chemotherapy once D/ C. TCU recommended. Plan: 1-Microcytic Anemia, Acute on chronic - H/H 9.2/27.7 - likely 2/2 malignancy, no evidence of acute bleeding - s/p 3 units of PRBC - Heme/Onc Dr Palmer consulted, recs appreciated 2-Fevers - persistent, spiking - could be 2/2 malignancy - blood culture neg 24 hrs - urine cx negative - repeat procalcitonin 50.5 increased from 8.6 - lactid acid 1.6 (wnl) - Tylenol PRN - Hematology/Onc Dr Palmer consulted - ID Dr Rich consult placed. - Start meropenen 1g IV Q8 (day 1) - CXR 05/19: borderline infiltrate/atelectasis medial right base. Mediport stable position. No effusions. No CV pathology appreciated - f/u fungus cx - f/u chest CT 3 -Increased In abdominal Girth - f/u abd/pelvis CT 4 -Coagulopathy with elevated INR - repeat PT/INR 28/2.5 increased from 22.5/2.0 - PTT 50.2; Fibrinogen 787 5 -Thrombocytopenia - most likely 2/2 splenomegaly vs malignancy vs both - no active bleeding noted - plt count 57 6 -HIV infection -lymphocyte panel on 04/25/17 -CD4 count 17, % CD4 4 % -c/w home med - ID Dr Rich on board, recs appreciated: -c/w azithromycin for prophylaxis, 1200 mg every Tuesday (next dose next week) 7 -Lower extremities edema - most likely to be 2/2 hepatosplenomegaly 8 -DVT prophylaxis -thrombocytopenia -SCDs for now
--- NOTE | 2017-05-19 10:34 | CP.PCM.PN ---
Subjective - Date & Time of Evaluation Date of Evaluation: 05/19/17 Time of Evaluation: 12:30 - Subjective Subjective: ID Note- Patient seen and examined today with his mother and family at his bedside. pt. still spikes temp . states he feels slightly betetr today compared to yesterday . states he is eating well and denies any nausea. states had 1 episode of diarrhea today(new). had lengthy discussion with the heme /oncologist and as per him hemo for Hodgkin's lymphomas is done as outpatient and as per him also the fevers are from the cancer and he advises pt. to have chemo done tomm am at his office and he can return to hospital after for closer observation of any complications post chemo. Objective - Vital Signs/Intake and Output Vital Signs (last 24 hours): Temp Pulse Resp BP Pulse Ox 102.9 F H 142 H 22 109/64 96 05/19/17 08:26 05/19/17 08:28 05/19/17 07:55 05/19/17 08:28 05/19/17 07:55 - Medications Medications: Current Medications Acetaminophen (Tylenol 325mg Tab) 650 mg PO Q4 PRN PRN Reason: Fever >100.4 F Last Admin: 05/19/17 08:26 Dose: 650 mg Home Med (Patient's Own Medication) 1 unit PO DAILY [facility] Last Admin: 05/19/17 08:32 Dose: 1 unit Vancomycin HCl 1 gm/ Sodium (Chloride) 250 mls @ 166.667 mls/hr IVPB DAILY [facility] PRN Reason: Protocol Last Admin: 05/19/17 08:35 Dose: 166.667 mls/hr Meropenem 1 gm/ Sodium (Chloride) 100 mls @ 100 mls/hr IVPB Q8@0500,1300,2100 [facility] PRN Reason: Protocol Last Admin: 05/19/17 05:05 Dose: 100 mls/hr Metoprolol Succinate (Toprol Xl) 25 mg PO DAILY [facility] Last Admin: 05/19/17 08:28 Dose: 25 mg - Labs Labs: - Additional Findings Additional findings: - Constitutional Appears: No Acute Distress - Head Exam Head Exam: ATRAUMATIC - Eye Exam Eye Exam: EOMI, PERRL - ENT Exam ENT Exam: Normal Oropharynx - Neck Exam Neck exam: Positive for: Full Rom - Respiratory Exam Respiratory Exam: no wheezing decreased breath sounds at bases - Cardiovascular Exam Cardiovascular Exam: RRR, +S1, +S2 - GI/Abdominal Exam Additional comments: Abdominal distention present + Bowel sounds No tenderness to palpation soft No guarding no rebound - Extremities Exam Additional comments: trace LE edema b/l feet no tenderness. - Neurological Exam Neurological exam: Alert, Oriented x 3 Laboratory Results - last 72 hr 05/16/17 05/16/17 05/16/17 20:00 20:00 20:00 WBC 3.5 L RBC 2.86 L Hgb 7.2 L Hct 22.3 L MCV 78.2 L MCH 25.2 L MCHC 32.2 L RDW 19.3 H Plt Count 96 L MPV 10.7 Neut % (Auto) 82.7 H Lymph % (Auto) 5.8 L [place] % (Auto) 11.3 H Eos % (Auto) 0.0 Baso % (Auto) 0.2 Neut # (Auto) 2.9 Lymph # (Auto) 0.2 L [place] # (Auto) 0.4 Eos # (Auto) 0.0 Baso # (Auto) 0.0 Neutrophils % (Manual) Band Neutrophils % Lymphocytes % (Manual) Monocytes % (Manual) Platelet Estimate Large Platelets Hypochromasia (manual) Poikilocytosis (manual Anisocytosis (manual) Tear Drop Cells Schistocytes PT 22.5 H INR 2.0 H APTT 42.3 H Fibrinogen Sodium 134 Potassium 4.8 Chloride 98 Carbon Dioxide 23 Anion Gap 18 BUN 16 Creatinine 0.6 L Est GFR ( Amer) > 60 Est GFR (Non-Af Amer) > 60 Random Glucose 169 H Lactic Acid Calcium 8.4 Total Bilirubin 2.1 H AST 37 ALT 53 Alkaline Phosphatase 574 H D Lactate Dehydrogenase Total Creatine Kinase Troponin I < 0.0120 NT-Pro-B Natriuret Pep 245 Total Protein 5.8 L Albumin 2.5 L Globulin 3.3 Albumin/Globulin Ratio 0.8 L Procalcitonin Urine Color Urine Clarity Urine pH Ur Specific [place] Urine Protein Urine Glucose (UA) Urine Ketones Urine Blood Urine Nitrate Urine Bilirubin Urine Urobilinogen Ur Leukocyte Esterase Urine RBC (Auto) Urine Microscopic WBC Ur Squamous Epith Cells Urine Bacteria Hyaline Casts Absolute Lymphs (Flow) % CD4 Cells Absolute CD4 Count T-Help/Suppress Ratio % CD8 Cells Absolute CD8 Count T-Lymph Analys Comment HIV-1 RNA Qnt (RT-PCR) Blood Type Antibody Screen Crossmatch BBK History Checked 05/16/17 05/16/17 05/16/17 20:00 20:00 23:48 WBC RBC Hgb Hct MCV MCH MCHC RDW Plt Count MPV Neut % (Auto) Lymph % (Auto) [place] % (Auto) Eos % (Auto) Baso % (Auto) Neut # (Auto) Lymph # (Auto) [place] # (Auto) Eos # (Auto) Baso # (Auto) Neutrophils % (Manual) Band Neutrophils % Lymphocytes % (Manual) Monocytes % (Manual) Platelet Estimate Large Platelets Hypochromasia (manual) Poikilocytosis (manual Anisocytosis (manual) Tear Drop Cells Schistocytes PT INR APTT Fibrinogen Sodium Potassium Chloride Carbon Dioxide Anion Gap BUN Creatinine Est GFR ( Amer) Est GFR (Non-Af Amer) Random Glucose Lactic Acid 1.9 Calcium Total Bilirubin AST ALT Alkaline Phosphatase Lactate Dehydrogenase Total Creatine Kinase Troponin I NT-Pro-B Natriuret Pep Total Protein Albumin Globulin Albumin/Globulin Ratio Procalcitonin Urine Color Yellow Urine Clarity Slighty-cloudy Urine pH 5.0 Ur Specific [place] 1.017 Urine Protein Negative Urine Glucose (UA) Neg Urine Ketones Negative Urine Blood Negative Urine Nitrate Negative Urine Bilirubin Negative Urine Urobilinogen 0.2-1.0 Ur Leukocyte Esterase Neg Urine RBC (Auto) 3 Urine Microscopic WBC 1 Ur Squamous Epith Cells < 1 Urine Bacteria Rare Hyaline Casts Absolute Lymphs (Flow) % CD4 Cells Absolute CD4 Count T-Help/Suppress Ratio % CD8 Cells Absolute CD8 Count T-Lymph Analys Comment HIV-1 RNA Qnt (RT-PCR) Blood Type O POSITIVE Antibody Screen Negative Crossmatch See Detail BBK History Checked No verified bt 05/17/17 05/17/17 05/17/17 13:04 13:04 13:04 WBC RBC Hgb Hct MCV MCH MCHC RDW Plt Count MPV Neut % (Auto) Lymph % (Auto) [place] % (Auto) Eos % (Auto) Baso % (Auto) Neut # (Auto) Lymph # (Auto) [place] # (Auto) Eos # (Auto) Baso # (Auto) Neutrophils % (Manual) Band Neutrophils % Lymphocytes % (Manual) Monocytes % (Manual) Platelet Estimate Large Platelets Hypochromasia (manual) Poikilocytosis (manual Anisocytosis (manual) Tear Drop Cells Schistocytes PT INR APTT Fibrinogen Sodium Potassium Chloride Carbon Dioxide Anion Gap BUN Creatinine Est GFR ( Amer) Est GFR (Non-Af Amer) Random Glucose Lactic Acid Calcium Total Bilirubin AST ALT Alkaline Phosphatase Lactate Dehydrogenase Total Creatine Kinase Troponin I NT-Pro-B Natriuret Pep Total Protein Albumin Globulin Albumin/Globulin Ratio Procalcitonin 8.19 H Urine Color Urine Clarity Urine pH Ur Specific [place] Urine Protein Urine Glucose (UA) Urine Ketones Urine Blood Urine Nitrate Urine Bilirubin Urine Urobilinogen Ur Leukocyte Esterase Urine RBC (Auto) Urine Microscopic WBC Ur Squamous Epith Cells Urine Bacteria Hyaline Casts Absolute Lymphs (Flow) 285 L % CD4 Cells 6 L Absolute CD4 Count <20 L T-Help/Suppress Ratio 0.08 L % CD8 Cells 72 H Absolute CD8 Count 205 T-Lymph Analys Comment See note HIV-1 RNA Qnt (RT-PCR) <1.30 not detected Blood Type Antibody Screen Crossmatch BBK History Checked 05/17/17 05/17/17 05/17/17 13:04 13:04 13:04 WBC 2.8 L RBC 3.30 L Hgb 8.6 L Hct 26.3 L MCV 79.8 L MCH 26.0 L MCHC 32.6 L RDW 18.2 H Plt Count 71 L D MPV Neut % (Auto) Lymph % (Auto) [place] % (Auto) Eos % (Auto) Baso % (Auto) Neut # (Auto) Lymph # (Auto) [place] # (Auto) Eos # (Auto) Baso # (Auto) Neutrophils % (Manual) Band Neutrophils % Lymphocytes % (Manual) Monocytes % (Manual) Platelet Estimate Large Platelets Hypochromasia (manual) Poikilocytosis (manual Anisocytosis (manual) Tear Drop Cells Schistocytes PT INR APTT Fibrinogen Sodium Potassium Chloride Carbon Dioxide Anion Gap BUN Creatinine Est GFR ( Amer) Est GFR (Non-Af Amer) Random Glucose Lactic Acid Calcium Total Bilirubin AST ALT Alkaline Phosphatase Lactate Dehydrogenase 375 Total Creatine Kinase < 20 L Troponin I NT-Pro-B Natriuret Pep Total Protein Albumin Globulin Albumin/Globulin Ratio Procalcitonin Urine Color Urine Clarity Urine pH Ur Specific [place] Urine Protein Urine Glucose (UA) Urine Ketones Urine Blood Urine Nitrate Urine Bilirubin Urine Urobilinogen Ur Leukocyte Esterase Urine RBC (Auto) Urine Microscopic WBC Ur Squamous Epith Cells Urine Bacteria Hyaline Casts Absolute Lymphs (Flow) % CD4 Cells Absolute CD4 Count T-Help/Suppress Ratio % CD8 Cells Absolute CD8 Count T-Lymph Analys Comment HIV-1 RNA Qnt (RT-PCR) Blood Type Antibody Screen Crossmatch BBK History Checked 05/17/17 05/18/17 05/18/17 23:46 04:25 05:10 WBC 2.7 L RBC 3.40 L Hgb 8.9 L Hct 26.9 L MCV 79.2 L MCH 26.1 L MCHC 33.0 RDW 18.4 H Plt Count 62 L MPV 9.3 Neut % (Auto) 69.8 Lymph % (Auto) 9.7 L [place] % (Auto) 20.3 H Eos % (Auto) 0.0 Baso % (Auto) 0.2 Neut # (Auto) 1.9 Lymph # (Auto) 0.3 L [place] # (Auto) 0.5 Eos # (Auto) 0.0 Baso # (Auto) 0.0 Neutrophils % (Manual) 66 Band Neutrophils % 2 Lymphocytes % (Manual) 14 L Monocytes % (Manual) 18 H Platelet Estimate Decreased L Large Platelets Present Hypochromasia (manual) Slight Poikilocytosis (manual Slight Anisocytosis (manual) Slight Tear Drop Cells Slight Schistocytes Slight PT INR APTT Fibrinogen Sodium 133 Potassium 4.6 Chloride 99 Carbon Dioxide 21 L Anion Gap 18 BUN 18 Creatinine 0.8 Est GFR ( Amer) > 60 Est GFR (Non-Af Amer) > 60 Random Glucose 97 Lactic Acid Calcium 8.1 L Total Bilirubin 3.7 H AST 35 ALT 46 Alkaline Phosphatase 566 H Lactate Dehydrogenase Total Creatine Kinase Troponin I NT-Pro-B Natriuret Pep Total Protein 5.6 L Albumin 2.3 L Globulin 3.3 Albumin/Globulin Ratio 0.7 L Procalcitonin Urine Color [place] Urine Clarity Slighty-cloudy Urine pH 5.0 Ur Specific [place] 1.025 Urine Protein 30 Urine Glucose (UA) Neg Urine Ketones Negative Urine Blood Negative Urine Nitrate Negative Urine Bilirubin Small Urine Urobilinogen 4.0 Ur Leukocyte Esterase Neg Urine RBC (Auto) 7 H Urine Microscopic WBC 1 Ur Squamous Epith Cells < 1 Urine Bacteria Rare Hyaline Casts 0-2 Absolute Lymphs (Flow) % CD4 Cells Absolute CD4 Count T-Help/Suppress Ratio % CD8 Cells Absolute CD8 Count T-Lymph Analys Comment HIV-1 RNA Qnt (RT-PCR) Blood Type Antibody Screen Crossmatch BBK History Checked 05/18/17 05/18/17 05/19/17 11:28 11:28 05:30 WBC 2.5 L RBC 3.44 L Hgb 9.2 L Hct 27.7 L MCV 80.7 MCH 26.6 L MCHC 33.0 RDW 18.1 H Plt Count 57 L MPV 10.1 Neut % (Auto) 73.2 Lymph % (Auto) 7.4 L [place] % (Auto) 19.3 H Eos % (Auto) 0.0 Baso % (Auto) 0.1 Neut # (Auto) 1.8 Lymph # (Auto) 0.2 L [place] # (Auto) 0.5 Eos # (Auto) 0.0 Baso # (Auto) 0.0 Neutrophils % (Manual) Band Neutrophils % Lymphocytes % (Manual) Monocytes % (Manual) Platelet Estimate Large Platelets Hypochromasia (manual) Poikilocytosis (manual Anisocytosis (manual) Tear Drop Cells Schistocytes PT 28.3 H D INR 2.5 H D APTT Fibrinogen Sodium Potassium Chloride Carbon Dioxide Anion Gap BUN Creatinine Est GFR ( Amer) Est GFR (Non-Af Amer) Random Glucose Lactic Acid Calcium Total Bilirubin AST ALT Alkaline Phosphatase Lactate Dehydrogenase Total Creatine Kinase Troponin I NT-Pro-B Natriuret Pep Total Protein Albumin Globulin Albumin/Globulin Ratio Procalcitonin 50.52 H Urine Color Urine Clarity Urine pH Ur Specific [place] Urine Protein Urine Glucose (UA) Urine Ketones Urine Blood Urine Nitrate Urine Bilirubin Urine Urobilinogen Ur Leukocyte Esterase Urine RBC (Auto) Urine Microscopic WBC Ur Squamous Epith Cells Urine Bacteria Hyaline Casts Absolute Lymphs (Flow) % CD4 Cells Absolute CD4 Count T-Help/Suppress Ratio % CD8 Cells Absolute CD8 Count T-Lymph Analys Comment HIV-1 RNA Qnt (RT-PCR) Blood Type Antibody Screen Crossmatch BBK History Checked 05/19/17 05/19/17 05/19/17 05:30 11:00 11:30 WBC RBC Hgb Hct MCV MCH MCHC RDW Plt Count MPV Neut % (Auto) Lymph % (Auto) [place] % (Auto) Eos % (Auto) Baso % (Auto) Neut # (Auto) Lymph # (Auto) [place] # (Auto) Eos # (Auto) Baso # (Auto) Neutrophils % (Manual) Band Neutrophils % Lymphocytes % (Manual) Monocytes % (Manual) Platelet Estimate Large Platelets Hypochromasia (manual) Poikilocytosis (manual Anisocytosis (manual) Tear Drop Cells Schistocytes PT INR APTT 50.2 H D Fibrinogen 787 H* Sodium 132 Potassium 3.9 Chloride 98 Carbon Dioxide 22 Anion Gap 16 BUN 18 Creatinine 0.8 Est GFR ( Amer) > 60 Est GFR (Non-Af Amer) > 60 Random Glucose 101 Lactic Acid 1.6 Calcium 8.0 L Total Bilirubin AST ALT Alkaline Phosphatase Lactate Dehydrogenase Total Creatine Kinase Troponin I NT-Pro-B Natriuret Pep Total Protein Albumin Globulin Albumin/Globulin Ratio Procalcitonin Urine Color Urine Clarity Urine pH Ur Specific [place] Urine Protein Urine Glucose (UA) Urine Ketones Urine Blood Urine Nitrate Urine Bilirubin Urine Urobilinogen Ur Leukocyte Esterase Urine RBC (Auto) Urine Microscopic WBC Ur Squamous Epith Cells Urine Bacteria Hyaline Casts Absolute Lymphs (Flow) % CD4 Cells Absolute CD4 Count T-Help/Suppress Ratio % CD8 Cells Absolute CD8 Count T-Lymph Analys Comment HIV-1 RNA Qnt (RT-PCR) Blood Type Antibody Screen Crossmatch BBK History Checked Microbiology 05/17/17 23:46 Urine,Clean Catch Urine Culture - Final No Growth (<1,000 CFU/ML) 05/16/17 20:15 Blood Blood Culture - Preliminary NO GROWTH AFTER 48 HOURS 05/17/17 21:00 Blood-Venous Blood Culture - Preliminary NO GROWTH AFTER 24 HOURS 05/17/17 20:30 Blood-Venous Blood Culture - Preliminary NO GROWTH AFTER 24 HOURS 05/16/17 19:45 Blood Blood Culture - Preliminary NO GROWTH AFTER 48 HOURS Accession No. : [id number] Patient Name / ID : CHENTE ESCOBAR / [id number] Exam Date : 05/19/2017 11:37:58 ( Approved ) Study Comment : Sex / Age : M / [id number] Creator : Mohan Harper MD Dictator : Mohan Harper MD Supply Chain Consultant : Tier Lift Operator : Mohan Harper MD Approver2 : Report Date : 05/19/2017 13:24:57 My Comment : HISTORY: fever COMPARISON: Frontal chest radiograph 05/16/2017. TECHNIQUE: Chest PA and lateral FINDINGS: LUNGS: Right-sided MediPort unchanged in position. Linear atelectasis is appreciate the bilateral midlung zones medially. Similar change appears at the left base medially as well. Borderline patchy atelectasis or infiltrate medial right base. No pleural effusion or pneumothorax bilaterally. Cardiomediastinal silhouette appears stable. PLEURA: As above. CARDIOVASCULAR: As above. OSSEOUS STRUCTURES: No significant abnormalities. VISUALIZED UPPER ABDOMEN: Normal. OTHER FINDINGS: None. IMPRESSION: Borderline infiltrate/atelectasis medial right base. Linear atelectasis identified in the bilateral mid to inferior lung zones, left greater than right with MediPort stable in position grossly. No interval cardiovascular pathology appreciable grossly. Assessment and Plan (1) AIDS (acquired immunodeficiency syndrome), CD4 <=200 Status: Acute (2) Hodgkin's lymphoma Status: Acute (3) Fever Status: Acute - Assessment and Plan (Free Text) Assessment: A/P- 37 year old male with HIV on stribild Undetectable Viral load but persistently low cd4 ( last CD4-17), newly diagnosed Hodgkin's lymphoma with persistent fevers. continues to have fevers daily . his fevers are most likely secondary to his Hodgkin's lymphomas as all his cultures and ID work up from last admission was negative and he continued to be febrile despite empiric IV antibiotics. He was maintained on oral abx to prevent opportunistic infections ( mepron and zithromax) liver biopsy AFB cx and fungus cx negative. Apparently liver bx cx grew only on broth strep viridans , lab did not notify anyone. was reported as per micro report 05/13/2017. blood cx 05/16/2017- neg x 2 cxr today report- b/l ? atelectais - most likley secondary to patient being in bed and not walking for a few weeks. repeat TTE- no vegetations as per report. new onset diarrhea today most likley from the Iv abx . plan- continue with empiric IV vancomycin day #3 since pt. is immunocompromised keep vanco trough <15. continue with empiric meropnem to cover for nosocomial pathogens since pt. was recently hospitalized and is immune suppressed pending further results. strep viridans in liver biopsy cx not very conclusive since it only grew in broth and the gram stain was negative. TTE done last admission - no vegetations as per report. continue with zithromax 1200 mg once a week for MAC prophylaxis. continue with mepron for PCP prophylaxis. pt. to start chemo as soon as possible as per heme/onc. certainly with chemo initiation and further depletion of bone marrow post chemo pt. will be at risk for infections, however, he also needs chemo to help save his life and cure the Hodgkin's and hence agree with heme/onc for pt. to have chemo tomm as outpatient ( since as per heme is not given inpatient) and if patient still febrile to return to hospital for closer observation . advise to give 1 dose of the vanco and meropenem tomm am prior to chemo. patient can be maintained on oral augmentin 875 mg BID after meal as outpatient after that for 2 weeks. also pt's stribild to be discontinued as this may interact with chemotherapy. pt's HIV doctor /brittany to place pt. on new regimen that would not have DDI with the chemo. All above d/w patient and his mother at length and his questions were all answered and he verbalizes full understanding of all above and agrees with above plan of care. All above also d/w DR.Pierre Morelos and at length.
--- NOTE | 2017-05-19 10:44 | CARD ---
APPROVED REPORT EKG Measurement Heart [id number] <Conclusion> Sinus tachycardia Otherwise normal ECG
--- NOTE | 2017-05-19 11:01 | CARD ---
APPROVED REPORT EXAM: Two-dimensional and M-mode echocardiogram with Doppler and color Doppler. Other Information Quality : GoodRhythm : Tachycardia INDICATION FEVER 2D DIMENSIONS IVSd0.89 (0.7-1.1cm)LVDd4.96 (3.9-5.9cm) LVOT Diameter2.40 (1.8-2.4cm)PWd0.92 (0.7-1.1cm) IVSs0.98 (0.8-1.2cm)LVDs3.53 (2.5-4.0cm) FS (%) 28.8 %PWs1.31 (0.8-1.2cm) M-Mode DIMENSIONS Left Atrium (MM)3.76 (2.5-4.0cm)IVSd1.06 (0.7-1.1cm) Aortic Root3.00 (2.2-3.7cm)LVDd4.94 (4.0-5.6cm) Aortic Cusp Exc.2.06 (1.5-2.0cm)PWd1.09 (0.7-1.1cm) IVSs1.47 cmFS (%) 32 % LVDs3.38 (2.0-3.8cm)PWs1.44 cm Mitral Valve E/A ratio0.0 TDI E/Lateral E'0.0E/Medial E'0.0 Pulmonary Valve PV Peak Usgzznkm146.4cm/s LEFT VENTRICLE The left ventricle is normal size. There is normal left ventricular wall thickness. Left ventricle systolic function is normal. The Ejection Fraction is 65-70%. There is normal LV segmental wall motion. Transmitral Doppler flow pattern is Grade I-abnormal relaxation pattern. RIGHT VENTRICLE The right ventricle is normal size. There is normal right ventricular wall thickness. The right ventricular systolic function is normal. ATRIA The left atrium size is normal. The right atrium size is normal. AORTIC VALVE The aortic valve is normal in structure. No aortic regurgitation is present. There is no aortic valvular stenosis. MITRAL VALVE The mitral valve is normal in structure. There is no evidence of mitral valve prolapse. There is no mitral valve stenosis. There is no mitral valve regurgitation noted. TRICUSPID VALVE The tricuspid valve is normal in structure. There is no tricuspid valve regurgitation noted. PULMONIC VALVE The pulmonary valve is normal in structure. There is no pulmonic valvular regurgitation. GREAT VESSELS The aortic root is normal in size. Due to poor image quality, the IVC could not be assessed. PERICARDIAL EFFUSION The pericardium appears normal. <Conclusion> The left ventricle is normal size. There is normal left ventricular wall thickness. There is normal LV segmental wall motion. Left ventricle systolic function is normal. The Ejection Fraction is 65-70%. Transmitral Doppler flow pattern is Grade I-abnormal relaxation pattern. No vegetations seen on this TTE.
--- NOTE | 2017-05-19 11:29 | CP.PCM.PN ---
Subjective - Date & Time of Evaluation Date of Evaluation: 05/19/17 Time of Evaluation: 11:15 - Subjective Subjective: Still spiking fevers Objective - Vital Signs/Intake and Output Vital Signs (last 24 hours): Temp Pulse Resp BP Pulse Ox 102.9 F H 142 H 22 109/64 96 05/19/17 08:26 05/19/17 08:28 05/19/17 07:55 05/19/17 08:28 05/19/17 07:55 - Medications Medications: Current Medications Acetaminophen (Tylenol 325mg Tab) 650 mg PO Q4 PRN PRN Reason: Fever >100.4 F Last Admin: 05/19/17 08:26 Dose: 650 mg Home Med (Patient's Own Medication) 1 unit PO DAILY [facility] Last Admin: 05/19/17 08:32 Dose: 1 unit Vancomycin HCl 1 gm/ Sodium (Chloride) 250 mls @ 166.667 mls/hr IVPB DAILY [facility] PRN Reason: Protocol Last Admin: 05/19/17 08:35 Dose: 166.667 mls/hr Meropenem 1 gm/ Sodium (Chloride) 100 mls @ 100 mls/hr IVPB Q8@0500,1300,2100 [facility] PRN Reason: Protocol Last Admin: 05/19/17 05:05 Dose: 100 mls/hr Metoprolol Succinate (Toprol Xl) 25 mg PO DAILY [facility] Last Admin: 05/19/17 08:28 Dose: 25 mg - Labs Labs: 05/19/17 05:30 05/19/17 05:30 PT 28.3 Seconds (9.8-13.1) H D 05/18/17 11:28 INR 2.5 (0.9-1.2) H D 05/18/17 11:28 APTT 42.3 Seconds (25.6-37.1) H 05/16/17 20:00 - Head Exam Head Exam: ATRAUMATIC - Eye Exam Eye Exam: Normal appearance - ENT Exam ENT Exam: Mucous Membranes Dry - Respiratory Exam Respiratory Exam: NORMAL BREATHING PATTERN - Cardiovascular Exam Cardiovascular Exam: +S1, +S2 - GI/Abdominal Exam GI & Abdominal Exam: Normal Bowel Sounds - Extremities Exam Extremities Exam: Pedal Edema Assessment and Plan (1) Hodgkin's lymphoma Assessment & Plan: stage IV outpatient chemotherapy Status: Acute (2) Pancytopenia Assessment & Plan: HIV/AIDS hodgkins lymphoma Status: Acute
[2017-05-19 12:01] LABS: PARTIAL THROMBOPLASTIN TIME 50.2 Seconds (25.6-37.1)
[2017-05-19 12:38] VITALS: RESP 18
--- NOTE | 2017-05-19 13:31 | RAD ---
HISTORY: fever COMPARISON: Frontal chest radiograph 05/16/2017. TECHNIQUE: Chest PA and lateral FINDINGS: LUNGS: Right-sided MediPort unchanged in position. Linear atelectasis is appreciate the bilateral midlung zones medially. Similar change appears at the left base medially as well. Borderline patchy atelectasis or infiltrate medial right base. No pleural effusion or pneumothorax bilaterally. Cardiomediastinal silhouette appears stable. PLEURA: As above. CARDIOVASCULAR: As above. OSSEOUS STRUCTURES: No significant abnormalities. VISUALIZED UPPER ABDOMEN: Normal. OTHER FINDINGS: None. IMPRESSION: Borderline infiltrate/atelectasis medial right base. Linear atelectasis identified in the bilateral mid to inferior lung zones, left greater than right with MediPort stable in position grossly. No interval cardiovascular pathology appreciable grossly.
[2017-05-19] MEDS ORDERED: Iohexol 300 100 ML IJ ONE (16:50)
[2017-05-19] MEDS ORDERED: BIKTARVY PO SCH (17:11)
--- NOTE | 2017-05-19 17:48 | CT ---
PROCEDURE: CT Chest, Abdomen and Pelvis with intravenous contrast HISTORY: abdominal distention, HIV/AIDS, fevers COMPARISON: 04/25/2017 CT thorax. 04/26/2017 abdominal ultrasound 04/21/2017 CT abdomen TECHNIQUE: IV dose administered: 95 cc Omnipaque 300 Radiation dose: Total exam DLP = 635.30 mGy-cm. This CT exam was performed using one or more of the following dose reduction techniques: Automated exposure control, adjustment of the mA and/or kV according to patient size, and/or use of iterative reconstruction technique. FINDINGS: CT CHEST WITH CONTRAST: LUNGS: Dependent atelectasis, minimal new finding compared to prior study. MEDIASTINUM: Unremarkable. Normal caliber aorta and pulmonary arterial trunk. No aortic dissection. Normal size heart. LYMPH NODES: Lymphadenopathy. Mediastinal, hilar adenopathy similar to that seen previously. PLEURA: Trace pleural effusions are new findings compared to the prior study. BONES: Unremarkable. OTHER FINDINGS: None. CT ABDOMEN AND PELVIS: LIVER: Hepatomegaly, hepatic steatosis. Ill-defined hepatic masses better seen on the recent 3 phase examination of the liver. GALLBLADDER AND BILE DUCTS: Unremarkable. PANCREAS: Unremarkable. No gross lesion or ductal dilatation. SPLEEN: Splenomegaly. Orthogonal measurements 8.3 x 20 x 15.7 cm. Note again made of tiny cystic masses in the spleen. She ADRENALS: Unremarkable. No mass. KIDNEYS AND URETERS: Unremarkable. No hydronephrosis. No solid mass. VASCULATURE: Unremarkable. No aortic aneurysm. Unremarkable IVC. Patent portal venous system. BOWEL: Unremarkable. No obstruction. No gross mural thickening. APPENDIX: A normal appendix is not identified PERITONEUM: New moderate volume abdominal and pelvic ascites. LYMPH NODES: Upper abdominal and retroperitoneal lymphadenopathy again identified approximately stable compared to the prior study. BLADDER: Unremarkable. REPRODUCTIVE: Unremarkable. BONES: No acute fracture. OTHER FINDINGS: New cutaneous and subcutaneous edema-anasarca. IMPRESSION: 1. New abdominal and pelvic ascites. 2. Trace bilateral pleural effusions and compressive atelectasis. No suspicious pulmonary nodules, masses or infiltrates. 3. Stable findings in the liver and spleen. 4. Stable adenopathy above and below the diaphragms.
[2017-05-20] MEDS: Sodium Chloride 0.9% 1,000 ML IV SCH ×2 (01:00→09:59)
[2017-05-20] MEDS: Meropenem 1 GM in Sodium Chloride 0.9% 100 ML IVPB SCH (04:47)
[2017-05-20 06:18] LABS: BASO % 0.1 % (0.0-2.0); EOS % 0.1 % (0.0-4.0); HEMOGLOBIN 9.1 g/dL (12.0-18.0); LYMPH # 0.3 K/uL (1.0-4.3); LYMPH % 12.4 % (20.0-40.0); MEAN CELL VOLUME 80.2 fl (80.0-94.0); MEAN CORPUSCULAR HEMOGLOBIN 26.1 pg (27.0-31.0); MEAN CORPUSCULAR HGB CONC 32.5 g/dL (33.0-37.0); MEAN PLATELET VOLUME 9.6 fl (7.2-11.7); MONO # 0.3 K/uL (0.0-0.8); MONO % 16.3 % (0.0-10.0); NEUT # 1.4 K/uL (1.8-7.0); NEUT % 71.1 % (50.0-75.0); NRBC % 0.4 % (0.0-0.0); RBC 3.47 Mil/uL (4.40-5.90)
[2017-05-20 06:43] LABS: ALB/GLOB RATIO 0.7 (1.0-2.1); ALBUMIN 2.1 g/dL (3.5-5.0); ALT/SGPT 49 U/L (21-72); AST/SGOT 57 U/L (17-59); BLOOD UREA NITROGEN 18 mg/dl (9-20); CALCIUM 7.8 mg/dL (8.4-10.2); GFR AFRICAN-AMERICAN > 60; GFR NON-AFRICAN AMERICAN > 60
[2017-05-20 08:45] VITALS: BP 105/66; PULSE 118; TEMP 99; O2SAT 98
[2017-05-20] MEDS ORDERED: Atovaquone 750 mg/5 ml Susp UD PO SCH (09:00)
[2017-05-20] MEDS: Metoprolol Succinate 25 mg XL Tab PO SCH (10:00)
--- NOTE | 2017-05-20 12:06 | CP.PCM.DIS ---
Provider - Provider Date of Admission: 05/16/17 20:32 Attending physician: Jazzy Gurrola MD Consults: Dr Seth Dorsey/Onc. Dr Sharon Rich ID. Time Spent in preparation of Discharge (in minutes): 30 Hospital Course - Lab Results Lab Results: Micro Results 05/16/17 20:15 Blood Blood Culture - Preliminary NO GROWTH AFTER 3 DAYS 05/18/17 21:30 Blood-Venous Blood Culture - Preliminary NO GROWTH AFTER 24 HOURS 05/18/17 20:45 Blood-Venous Blood Culture - Preliminary NO GROWTH AFTER 24 HOURS 05/17/17 21:00 Blood-Venous Blood Culture - Preliminary NO GROWTH AFTER 48 HOURS 05/17/17 20:30 Blood-Venous Blood Culture - Preliminary NO GROWTH AFTER 48 HOURS 05/16/17 19:45 Blood Blood Culture - Preliminary NO GROWTH AFTER 3 DAYS 05/17/17 23:46 Urine,Clean Catch Urine Culture - Final No Growth (<1,000 CFU/ML) Most Recent Lab Values WBC 2.0 K/uL (4.8-10.8) L* 05/20/17 05:56 RBC 3.47 Mil/uL (4.40-5.90) L 05/20/17 05:56 Hgb 9.1 g/dL (12.0-18.0) L 05/20/17 05:56 Hct 27.8 % (35.0-51.0) L 05/20/17 05:56 MCV 80.2 fl (80.0-94.0) 05/20/17 05:56 MCH 26.1 pg (27.0-31.0) L 05/20/17 05:56 MCHC 32.5 g/dL (33.0-37.0) L 05/20/17 05:56 RDW 18.0 % (11.5-14.5) H 05/20/17 05:56 Plt Count 51 K/uL (130-400) L 05/20/17 05:56 MPV 9.6 fl (7.2-11.7) 05/20/17 05:56 Neut % (Auto) 71.1 % (50.0-75.0) 05/20/17 05:56 Lymph % (Auto) 12.4 % (20.0-40.0) L 05/20/17 05:56 Wise % (Auto) 16.3 % (0.0-10.0) H 05/20/17 05:56 Eos % (Auto) 0.1 % (0.0-4.0) 05/20/17 05:56 Baso % (Auto) 0.1 % (0.0-2.0) 05/20/17 05:56 Neut # (Auto) 1.4 K/uL (1.8-7.0) L 05/20/17 05:56 Lymph # (Auto) 0.3 K/uL (1.0-4.3) L 05/20/17 05:56 Wise # (Auto) 0.3 K/uL (0.0-0.8) 05/20/17 05:56 Eos # (Auto) 0.0 K/uL (0.0-0.7) 05/20/17 05:56 Baso # (Auto) 0.0 K/uL (0.0-0.2) 05/20/17 05:56 Neutrophils % (Manual) 66 % (42-75) 05/18/17 05:10 Band Neutrophils % 2 % (0-2) 05/18/17 05:10 Lymphocytes % (Manual) 14 % (20-50) L 05/18/17 05:10 Monocytes % (Manual) 18 % (0-10) H 05/18/17 05:10 Platelet Estimate Decreased (NORMAL) L 05/18/17 05:10 Large Platelets Present 05/18/17 05:10 Hypochromasia (manual) Slight 05/18/17 05:10 Poikilocytosis (manual Slight 05/18/17 05:10 Anisocytosis (manual) Slight 05/18/17 05:10 Tear Drop Cells Slight 05/18/17 05:10 Schistocytes Slight 05/18/17 05:10 PT 28.3 Seconds (9.8-13.1) H D 05/18/17 11:28 INR 2.5 (0.9-1.2) H D 05/18/17 11:28 APTT 50.2 Seconds (25.6-37.1) H D 05/19/17 11:00 Fibrinogen 787 mg/dl (200-400) H* 05/19/17 11:00 Sodium 133 mmol/l (132-148) 05/20/17 05:56 Potassium 4.2 MMOL/L (3.6-5.0) 05/20/17 05:56 Chloride 101 mmol/L (98-107) 05/20/17 05:56 Carbon Dioxide 21 mmol/L (22-30) L 05/20/17 05:56 Anion Gap 15 (10-20) 05/20/17 05:56 BUN 18 mg/dl (9-20) 05/20/17 05:56 Creatinine 0.6 mg/dl (0.8-1.5) L 05/20/17 05:56 Est GFR ( Amer) > 60 05/20/17 05:56 Est GFR (Non-Af Amer) > 60 05/20/17 05:56 Random Glucose 90 mg/dL (75-110) 05/20/17 05:56 Lactic Acid 1.6 MMOL/L (0.7-2.1) 05/19/17 11:30 Calcium 7.8 mg/dL (8.4-10.2) L 05/20/17 05:56 Total Bilirubin 5.2 mg/dl (0.2-1.3) H 05/20/17 05:56 AST 57 U/L (17-59) 05/20/17 05:56 ALT 49 U/L (21-72) 05/20/17 05:56 Alkaline Phosphatase 473 U/L (38-126) H 05/20/17 05:56 Lactate Dehydrogenase 375 U/L (313-618) 05/17/17 13:04 Total Creatine Kinase < 20 U/L (55-170) L 05/17/17 13:04 Troponin I < 0.0120 ng/mL (0.00-0.120) 05/16/17 20:00 NT-Pro-B Natriuret Pep 245 pg/ml (0-450) 05/16/17 20:00 Total Protein 5.2 G/DL (6.3-8.2) L 05/20/17 05:56 Albumin 2.1 g/dL (3.5-5.0) L 05/20/17 05:56 Globulin 3.0 gm/dL (2.2-3.9) 05/20/17 05:56 Albumin/Globulin Ratio 0.7 (1.0-2.1) L 05/20/17 05:56 Procalcitonin 50.52 NG/ML (0.19-0.49) H 05/18/17 11:28 Urine Color [place] (YELLOW) 05/17/17 23:46 Urine Clarity Slighty-cloudy (Clear) 05/17/17 23:46 Urine pH 5.0 (5.0-8.0) 05/17/17 23:46 Ur Specific [place] 1.025 (1.003-1.030) 05/17/17 23:46 Urine Protein 30 mg/dL (NEGATIVE) 05/17/17 23:46 Urine Glucose (UA) Neg mg/dL (Normal) 05/17/17 23:46 Urine Ketones Negative mg/dL (NEGATIVE) 05/17/17 23:46 Urine Blood Negative (NEGATIVE) 05/17/17 23:46 Urine Nitrate Negative (NEGATIVE) 05/17/17 23:46 Urine Bilirubin Small (NEGATIVE) 05/17/17 23:46 Urine Urobilinogen 4.0 mg/dL (0.2-1.0) 05/17/17 23:46 Ur Leukocyte Esterase Neg Jovani/uL (Negative) 05/17/17 23:46 Urine RBC (Auto) 7 /hpf (0-3) H 05/17/17 23:46 Urine Microscopic WBC 1 /hpf (0-5) 05/17/17 23:46 Ur Squamous Epith Cells < 1 /hpf (0-5) 05/17/17 23:46 Urine Bacteria Rare (<OCC) 05/17/17 23:46 Hyaline Casts 0-2 /hpf (0-2) 05/17/17 23:46 Absolute Lymphs (Flow) 285 Cells/mcL (850-3900) L 05/17/17 13:04 % CD4 Cells 6 Percent (30-61) L 05/17/17 13:04 Absolute CD4 Count <20 Cells/mcL (490-1740) L 05/17/17 13:04 T-Help/Suppress Ratio 0.08 Ratio (0.86-5.00) L 05/17/17 13:04 % CD8 Cells 72 Percent (12-42) H 05/17/17 13:04 Absolute CD8 Count 205 Cells/mcL (180-1170) 05/17/17 13:04 T-Lymph Analys Comment See note 05/17/17 13:04 Cryptococcus Ag Negative (NEGATIVE) 05/18/17 22:00 HIV-1 RNA Qnt (RT-PCR) <1.30 not detected (Not Detected) 05/17/17 13:04 Blood Type O POSITIVE 05/16/17 20:00 Antibody Screen Negative 05/16/17 20:00 Crossmatch See Detail 05/16/17 20:00 BBK History Checked No verified bt 05/16/17 20:00 - Hospital Course Hospital Course: 37 y/o male with PMHx of HIV infection, Low CD4 (17/ tested on 04/25/17) and recent diagnosed Hodgkins Lymphoma stage 4 ( on Tuesday05/09/17 per Hemo/Onc Dr. Palmer) was admitted due to persistent fevers, swollen legs and increase in abdominal girth. Patient is neutropenic and anemic, received 3 units of PRBC. Patient was evaluated by Heme/onc and ID. Received treatment with IV antibiotics. Ascitis + on abd CT, amount of fluid indeterminate to tap. Normal CXR and Echo. Patient was discharged in stable condition to receive his first dose of chemo at Dr Palmer's office. Patient encouraged to come back to the hospital if fever or persistent abdominal pain. Discharge Exam - Head Exam Head Exam: NORMAL INSPECTION - Eye Exam Eye Exam: EOMI, PERRL - Respiratory Exam Respiratory Exam: Clear to PA & Lateral, NORMAL BREATHING PATTERN. absent: Chest Wall Tenderness, Rales, Wheezes - Cardiovascular Exam Cardiovascular Exam: Tachycardia, REGULAR RHYTHM, +S1, +S2 - GI/Abdominal Exam GI & Abdominal Exam: Distended, Normal Bowel Sounds, Tenderness (diffuse) - Neurological Exam Neurological exam: Alert, CN II-XII Intact, Oriented x3 - Psychiatric Exam Psychiatric exam: Anxious - Skin Skin Exam: Dry, Warm Discharge Plan - Discharge Medications Prescriptions: Amoxicillin/Clavulanate [Augmentin 875 MG-125 MG] 1 tab PO Q12 14 Days #28 tab - Follow Up Plan Condition: FAIR Disposition: HOME/ ROUTINE Instructions: Anemia of Chronic Disease, Dehydration, Adult (DC), Lymphoma (DC) Additional Instructions: Discontinue Stribild Discontinue Zythromac Referrals: Seth Palmer MD [Staff Provider] - Jg Tyler MD [Family Provider] -
[2017-05-21 09:08] LABS: ALB/GLOB RATIO 0.7 (1.0-2.1); ALBUMIN 2.1 g/dL (3.5-5.0); ALT/SGPT 41 U/L (21-72); AST/SGOT 51 U/L (17-59); BLOOD UREA NITROGEN 24 mg/dl (9-20); CALCIUM 7.4 mg/dL (8.4-10.2); GFR AFRICAN-AMERICAN > 60; GFR NON-AFRICAN AMERICAN > 60
[2017-05-21 09:11] LABS: BASO % 0.5 % (0.0-2.0); HEMOGLOBIN 8.8 g/dL (12.0-18.0); LYMPH # 0.1 K/uL (1.0-4.3); LYMPH % 2.5 % (20.0-40.0); MEAN CORPUSCULAR HEMOGLOBIN 26.3 pg (27.0-31.0); MEAN CORPUSCULAR HGB CONC 32.8 g/dL (33.0-37.0); MEAN PLATELET VOLUME 9.1 fl (7.2-11.7); MONO # 0.1 K/uL (0.0-0.8); MONO % 4.5 % (0.0-10.0); NEUT # 2.6 K/uL (1.8-7.0); NEUT % 92.5 % (50.0-75.0); NRBC % 0.1 % (0.0-0.0); RBC 3.36 Mil/uL (4.40-5.90); RED CELL DISTRIBUTION WIDTH 18.6 % (11.5-14.5); WHITE BLOOD COUNT 2.9 K/uL (4.8-10.8)
[2017-05-21 09:13] LABS: PLATELET COUNT 28 K/uL (130-400)
[2017-05-21 11:59] LABS: ANISOCYTOSIS SLIGHT; BANDS 2 % (0-2); HYPOCHROMIC SLIGHT; LYMPHOCYTE 5 % (20-50); MICROCYTOSIS SLIGHT; MONOCYTE 6 % (0-10); NEUTROPHIL 86 % (42-75); PLATELET ESTIMATE DECREASED (NORMAL); POIKILOCYTOSIS SLIGHT; POLYCHROMIC SLIGHT; REACTIVE LYMPHOCYTES 1 % (0-0); TOTAL CELLS COUNTED 100
[2017-05-21 12:00] LABS: ACANTHOCYTES SLIGHT
== END 2017-05-20 12:04 | disposition home or self-care (01) | DRG 578 ==
LOC: H.ER 18:28 → H.ERHOLD 20:32 → H.TEL 23:25
PROVIDERS: ADMIT Family Medicine Geriatric Medicine; ATTEND Family Medicine Geriatric Medicine
PROC: 30233N1 Transfusion of Nonautologous Red Blood Cells into Peripheral Vein, Percutaneous Approach (ICD-10-PCS; principal; 2017-05-17)
DX: C81.93 Hodgkin lymphoma, unspecified, intra-abdominal lymph nodes (principal); B20 Human immunodeficiency virus [HIV] disease; D61.818 Other pancytopenia; E86.0 Dehydration; D69.59 Other secondary thrombocytopenia; D50.8 Other iron deficiency anemias; D68.8 Other specified coagulation defects; D63.0 Anemia in neoplastic disease; R16.2 Hepatomegaly with splenomegaly, not elsewhere classified; L80 Vitiligo; Z88.6 Allergy status to analgesic agent

== ENCOUNTER 2017-05-20 16:34 | Inpatient (IN) | payer MEDICAID ==
[2017-05-20 16:34] VITALS: BMI 23.1
[2017-05-20] MEDS ORDERED: Sodium Chloride 0.9% 1,000 ML IV STA (17:27)
--- NOTE | 2017-05-20 17:33 | ED PDOC ---
HPI: Fever Additional Comments: Ongoing fever with source determined to be related to malignancy rather than infectious cause. Had chemo as outpt today and returns for ongoing management of lymphoma and fever. Past Medical History Vital Signs: Last Vital Signs Temp 102.9 F H 05/20/17 17:05 Pulse 149 H 05/20/17 17:05 Resp 20 05/20/17 17:05 BP 109/65 05/20/17 17:05 Pulse Ox 93 L 05/20/17 17:05 - Medical History PMH: HIV (vl undetectable), Malignancy (Hodgkins lymphoma) Denies: Chronic Kidney Disease - Family History Family History: States: Unknown Family Hx - Home Medications Home Medications: Ambulatory Orders Medication Instructions Recorded Amoxicillin/Clavulanate [Augmentin 1 tab PO Q12 14 Days #28 tab 05/20/17 875 MG-125 MG] - Allergies Allergies/Adverse Reactions: Allergies Allergy/AdvReac Type Severity Reaction Status Date / Time ibuprofen [From Motrin] Allergy RASH Verified 05/20/17 17:08 Review of Systems ROS Statement: Except As Marked, All Systems Reviewed And Found Negative Constitutional: Positive for: Fever Gastrointestinal: Positive for: Abdominal Pain Physical Exam - Reviewed Nursing Documentation Reviewed: Yes Vital Signs Reviewed: Yes - Physical Exam Appears: Positive for: Non-toxic, No Acute Distress Head Exam: Positive for: ATRAUMATIC, NORMAL INSPECTION, NORMOCEPHALIC Skin: Positive for: Normal Color, Warm, DRY Eye Exam: Positive for: EOMI, Normal appearance, PERRL ENT: Positive for: Normal ENT Inspection Neck: Positive for: Normal, Painless ROM Cardiovascular/Chest: Positive for: Regular Rate, Rhythm Respiratory: Positive for: CNT, Normal Breath Sounds Gastrointestinal/Abdominal: Positive for: Soft, Distended Back: Positive for: Normal Inspection Extremity: Positive for: Pedal Edema Neurologic/Psych: Positive for: Alert, Oriented - ECG O2 Sat by Pulse Oximetry: 93 Disposition - Clinical Impression Clinical Impression: Lymphoma, Hodgkin's lymphoma, HIV disease - Patient ED Disposition Is Patient to be Admitted: Yes - Disposition Disposition Time: 17:34 Condition: GUARDED - Pt Status Changed To: Hospital Disposition Of: Inpatient - Admit Certification Admit to Inpatient:: After my assessment, the patient will require hospitalization for at least two midnights. This is because of the severity of symptoms shown, intensity of services needed, and/or the medical risk in this patient being treated as an outpatient. - POA Present On Arrival: None
[2017-05-20 17:50] LABS: VENOUS BLOOD GAS BASE EXCESS -3.9 mmol/L (0.0-2.0); VENOUS BLOOD GAS PCO2 24 mmHg (40-60); VENOUS BLOOD GAS PO2 61 mm/Hg (30-55); VENOUS BLOOD PH 7.49 (7.32-7.43)
[2017-05-20 18:02] LABS: BASO % 0.2 % (0.0-2.0); HEMOGLOBIN 10.1 g/dL (12.0-18.0); LYMPH # 0.1 K/uL (1.0-4.3); LYMPH % 3.4 % (20.0-40.0); MEAN CELL VOLUME 80.5 fl (80.0-94.0); MEAN CORPUSCULAR HEMOGLOBIN 25.9 pg (27.0-31.0); MEAN CORPUSCULAR HGB CONC 32.2 g/dL (33.0-37.0); MEAN PLATELET VOLUME 11.6 fl (7.2-11.7); MONO # 0.2 K/uL (0.0-0.8); NEUT # 2.6 K/uL (1.8-7.0); NEUT % 90.4 % (50.0-75.0); NRBC % 0.2 % (0.0-0.0); PLATELET COUNT 64 K/uL (130-400); RBC 3.88 Mil/uL (4.40-5.90); RED CELL DISTRIBUTION WIDTH 18.5 % (11.5-14.5); WHITE BLOOD COUNT 2.8 K/uL (4.8-10.8)
--- NOTE | 2017-05-20 18:19 | CP.PCM.HP ---
Addendum entered and electronically signed by Taniya Ozuna MD 05/20/17 20:20: Correction of H&P I was informed by day time resident, Dr. Pizano, that Azithromycin was discontinued by Dr. Kenny during chemotherapy. Original Note: History of Present Illness - History of Present Illness History of Present Illness: 37 y/o male with PMHx of HIV infection, Low CD4 ( <20/ tested on 05/17/17) on HIV opportunistic infection prophylaxis, and recent diagnosed Hodgkins Lymphoma stage 4 ( on Tuesday05/09/17 per Hemo/Onc Dr. Palmer), s/p first chemotherapy today presents to ED complaining of weakness and persistent fevers after he underwent chemo today. Denies chest pain, SOB, N/V, abdominal pain or other associated symptoms. Patient was discharged today from [facility].lb PMD: Laura at [facility] Hemo/Onc Dr. Palmer PMHx: HIV, low CD4(17/ tested on 04/25/17), Vitiligo, recent diagnosed Hodgkins Lymphoma stage 4 ( on Tuesday05/09/17 per Hemo/Onc Dr. Palmer) Meds: Stribild [phone], Azithromycin 1200mg Qweekly( next dose scheduled for Tuesday of next week) , Bactrim DS 800-160 mg QD ALL: NKDA PsurgHx: buttock implants FamilyHx: father heart disease, mother healthy Socialhx: social ETOH, denies Tobacco/drug abuse Next of Kin: MotherElvia Code Status: full code ER course: VS: febrile: 102.9, tachy: 130, RR: 20, oxyg sat: 94 % in room air PE: chronically ill, unchanged from prior admission labs:reviewed CXR: read by me, no gross evidence of acute disease when compared with prior test. Pending official report Present on Admission - Present on Admission Any Indicators Present on Admission: No History of DVT/PE: No History of Uncontrolled Diabetes: No Urinary Catheter: No Decubitus Ulcer Present: No Review of Systems - Review of Systems All systems: reviewed and no additional remarkable complaints except (as per HPI ) Past Patient History - Infectious Disease Hx of Infectious Diseases: None - Past Medical History & Family History Past Medical History?: Yes - Past Social History Smoking Status: Never Smoked - CARDIAC Hx Cardiac Disorders: No - PULMONARY Hx Respiratory Disorders: No - NEUROLOGICAL Hx Neurological Disorder: No - HEENT Hx HEENT Problems: No Hx Blind: No - RENAL Hx Chronic Kidney Disease: No - ENDOCRINE/METABOLIC Hx Endocrine Disorders: No - HEMATOLOGICAL/ONCOLOGICAL Hx Blood Disorders: Yes Hx Cancer: Yes (hodgkin's lymphoma) Hx Human Immunodeficiency Virus (HIV): Yes (vl undetectable) - INTEGUMENTARY Hx Dermatological Problems: No - MUSCULOSKELETAL/RHEUMATOLOGICAL Hx Musculoskeletal Disorders: No Hx Falls: No - GASTROINTESTINAL Hx Gastrointestinal Disorders: No - GENITOURINARY/GYNECOLOGICAL Hx Genitourinary Disorders: No - PSYCHIATRIC Hx Psychophysiologic Disorder: No Hx Emotional Abuse: No Hx Physical Abuse: No Hx Substance Use: No - SURGICAL HISTORY Hx Surgeries: No Other/Comment: STOMACH BIOPSY - ANESTHESIA Hx Anesthesia: Yes Hx Anesthesia Reactions: No Hx Malignant Hyperthermia: No Meds Allergies/Adverse Reactions: Allergies Allergy/AdvReac Type Severity Reaction Status Date / Time ibuprofen [From Motrin] Allergy RASH Verified 05/20/17 17:08 Physical Exam - Constitutional Appears: Non-toxic, No Acute Distress, Chronically Ill - ENT Exam ENT Exam: Mucous Membranes Dry - Respiratory Exam Respiratory Exam: Clear to Auscultation Bilateral, NORMAL BREATHING PATTERN. absent: Rales, Rhonchi, Wheezes, Respiratory Distress, Stridor - Cardiovascular Exam Cardiovascular Exam: Tachycardia, REGULAR RHYTHM, +S1, +S2 - GI/Abdominal Exam GI & Abdominal Exam: Distended, Normal Bowel Sounds, Soft. absent: Rebound, Rigid, Tenderness - Extremities Exam Extremities exam: Positive for: pedal edema. Negative for: calf tenderness - Back Exam Back exam: NORMAL INSPECTION. absent: CVA tenderness (L), CVA tenderness (R) - Neurological Exam Neurological exam: Alert, Oriented x3 - Skin Skin Exam: Dry, Intact, Pallor Results - Vital Signs Recent Vital Signs: Last Vital Signs Temp 102.9 F H 05/20/17 17:37 Pulse 149 H 05/20/17 17:05 Resp 20 05/20/17 17:05 BP 109/65 05/20/17 17:05 Pulse Ox 93 L 05/20/17 17:34 - Labs Result Diagrams: 05/20/17 17:40 05/20/17 17:40 Labs: Laboratory Results - last 24 hr 04/13/18 04/13/18 17:26 17:40 WBC 2.8 L RBC 3.88 L Hgb 10.1 L Hct 31.2 L MCV 80.5 MCH 25.9 L MCHC 32.2 L RDW 18.5 H Plt Count 64 L MPV 11.6 Neut % (Auto) 90.4 H Lymph % (Auto) 3.4 L [place] % (Auto) 6.0 Eos % (Auto) 0.0 Baso % (Auto) 0.2 Neut # (Auto) 2.6 Lymph # (Auto) 0.1 L [place] # (Auto) 0.2 Eos # (Auto) 0.0 Baso # (Auto) 0.0 pO2 61 H VBG pH 7.49 H VBG pCO2 24 L VBG HCO3 21.9 VBG Total CO2 19.0 L VBG O2 Sat (Calc) 98.9 H VBG Base Excess -3.9 L VBG Potassium 4.6 Sodium 126.0 L Chloride 102.0 Glucose 171 H Lactate 3.2 H FiO2 21.0 Venous Blood Potassium 4.6 Assessment & Plan - Assessment and Plan (Free Text) Assessment: 37 y/o male with PMHx of HIV infection, Low CD4 count, and recent diagnosed Hodgkins Lymphoma stage 4 s/p first chemotherapy today admitted with weakness, and persistent fevers. Plan: Weakness -telemetry unit -S/P chemotherapy for treatment of recent diagnosed Hodgkins Lymphoma stage 4. -IV Fluids -zofran for N/V -Hematology/Onc consult. Recommendations are appreciated Fevers -persistent for months now -most likely 2/2 Hodgkins Lymphoma stage 4 -f/u blood culture -f/u urine culture -ANC in CBC on admission 2.6, wnl -Tylenol for fever control -empiric antibiotics -c/w Vancomycin and Meropenem IV for gram positive and gram negative microorganisms. F/U ID recommendations for abx coverage. -Hematology/Onc consult. Recommendations are appreciated -ID on consult. Recommendations are appreciated Tachycardia -c/w IV fluids -continues field trainer -Oxygen supplementation via NC started at 2 LPM and titrate as needed to maintain oxygen saturation >94 % -c/w metoprolol succ 25 mg PO daily Pancytopenia -most likely 2/2 malignancy -s/p transfusion of 3 units of PRBC in prior admission -H/H stable after transfusion -no evidence of active bleeding at this time -PLt count 64 on this admission -WBC stable 2.8 -F/U CBC in AM -Hematology/Onc consult. Recommendations are appreciated Hyponatremia -mild on admission -NA+: 130 -IV NS -f/u electrolytes in AM HIV infection -lymphocyte panel on 05/17/17 -CD4 count <20, % CD4 6 % -HIV treatment was changed in prior admission. C/W current HIV treatment -c/w Mepron ( atovaquone) 1500 mg PO daily, for PCP prophylaxis -c/w azithromycin 1200 mg PO weekly, for MAC prophylaxis -bactrim DS for PCP prophylaxis was discontinued in prior admission as per ID recommendations DVT prophylaxis -thrombocytopenia on admission 62 -SCDs - Date & Time Date: 05/20/17 Time: 18:00
[2017-05-20 18:28] LABS: ALB/GLOB RATIO 0.7 (1.0-2.1); ALBUMIN 2.4 g/dL (3.5-5.0); ALT/SGPT 53 U/L (21-72); AST/SGOT 74 U/L (17-59); BLOOD UREA NITROGEN 19 mg/dl (9-20); CALCIUM 7.7 mg/dL (8.4-10.2); GFR AFRICAN-AMERICAN > 60; GFR NON-AFRICAN AMERICAN > 60
[2017-05-20 20:29] LABS: BANDS 3 % (0-2); LYMPHOCYTE 6 % (20-50); MONOCYTE 7 % (0-10); NEUTROPHIL 84 % (42-75); TOTAL CELLS COUNTED 100
[2017-05-20 20:30] LABS: PLATELET ESTIMATE DECREASED (NORMAL)
[2017-05-20 20:32] LABS: ANISOCYTOSIS SLIGHT; POIKILOCYTOSIS SLIGHT
[2017-05-20 20:33] LABS: ACANTHOCYTES SLIGHT; GIANT PLATELETS PRESENT; HYPOCHROMIC MODERATE; MICROCYTOSIS MODERATE; OVALOCYTES SLIGHT; POLYCHROMIC SLIGHT
[2017-05-20] MEDS: Sodium Chloride 0.9% 1,000 ML IV SCH (22:16)
[2017-05-21] MEDS: Meropenem 1 GM in Sodium Chloride 0.9% 100 ML IVPB SCH ×3 (01:28→17:21)
[2017-05-21] MEDS: Sodium Chloride 0.9% 1,000 ML IV SCH ×2 (08:27→10:56)
[2017-05-21] MEDS: BIKTARVY PO SCH (08:28)
[2017-05-21] MEDS: Atovaquone 750 mg/5 ml Susp UD PO SCH (08:28)
[2017-05-21] MEDS: Metoprolol Succinate 25 mg XL Tab PO SCH (08:28)
--- NOTE | 2017-05-21 08:28 | RAD ---
HISTORY: cough COMPARISON: 05/19/2017 FINDINGS: LUNGS: No active pulmonary disease. PLEURA: No significant pleural effusion identified, no pneumothorax apparent. CARDIOVASCULAR: Normal. OSSEOUS STRUCTURES: No significant abnormalities. VISUALIZED UPPER ABDOMEN: Normal. OTHER FINDINGS: None. IMPRESSION: No active disease.
--- NOTE | 2017-05-21 08:40 | CARD ---
APPROVED REPORT EKG Measurement Heart [id number] <Conclusion> Sinus tachycardia Otherwise normal ECG
--- NOTE | 2017-05-21 08:57 | CP.PCM.PN ---
Subjective - Date & Time of Evaluation Date of Evaluation: 05/21/17 Time of Evaluation: 08:11 - Subjective Subjective: Patient seen and examined this morning at bedside, reports feeling better, patient received first dose of chemo yesterday. Continue spike fever and decreased appetite. Denies vomiting, chest pain, sob, palpitations, no headaches , chills. No urinary symptoms. Objective - Vital Signs/Intake and Output Vital Signs (last 24 hours): Temp Pulse Resp BP Pulse Ox 98.1 F 113 H 18 106/72 95 05/21/17 08:00 05/21/17 08:28 05/21/17 08:00 05/21/17 08:28 05/21/17 08:00 - Medications Medications: Current Medications Acetaminophen (Tylenol 325mg Tab) 650 mg PO Q4 PRN PRN Reason: Pain, Mild (1-3) Last Admin: 05/21/17 05:11 Dose: 650 mg Atovaquone (Mepron) 1,500 mg PO DAILY DARRION PRN Reason: Protocol Last Admin: 05/21/17 08:28 Dose: 1,500 mg Heparin Sodium (Porcine) (Heparin) 5,000 units SC Q12 DARRION PRN Reason: Protocol Home Med (Patient's Own Medication) 1 unit PO DAILY [facility] Last Admin: 05/21/17 08:28 Dose: 1 unit Meropenem 1 gm/ Sodium (Chloride) 100 mls @ 100 mls/hr IVPB Q8 DARRION PRN Reason: Protocol Last Admin: 05/21/17 08:25 Dose: 100 mls/hr Vancomycin HCl 1 gm/ Sodium (Chloride) 250 mls @ 125 mls/hr IVPB DAILY [facility] Sodium Chloride (Sodium Chloride 0.9%) 1,000 mls @ 100 mls/hr IV .Q10H [facility] Stop: 05/21/17 21:53 Last Admin: 05/21/17 08:27 Dose: 100 mls/hr Metoprolol Succinate (Toprol Xl) 25 mg PO DAILY [facility] Last Admin: 05/21/17 08:28 Dose: 25 mg Ondansetron HCl (Zofran Inj) 4 mg IVP Q6 PRN PRN Reason: Nausea/Vomiting - Labs Labs: 05/20/17 17:40 05/20/17 17:40 - Constitutional Appears: Other (Ill) - Head Exam Head Exam: NORMAL INSPECTION - Eye Exam Eye Exam: EOMI, PERRL, Scleral icterus. absent: Nystagmus - ENT Exam ENT Exam: Mucous Membranes Moist - Respiratory Exam Respiratory Exam: Rales (occasional on R lung base), NORMAL BREATHING PATTERN. absent: Chest Wall Tenderness, Decreased Breath Sounds Additional comments: Port noted R subclavicular, apparently functioning well. - Cardiovascular Exam Cardiovascular Exam: Tachycardia, REGULAR RHYTHM, +S1, +S2. absent: Murmur - GI/Abdominal Exam GI & Abdominal Exam: Distended, Tenderness, Normal Bowel Sounds - Extremities Exam Extremities Exam: Pedal Edema. absent: Calf Tenderness - Neurological Exam Neurological Exam: Alert, Awake, Oriented x3 - Psychiatric Exam Psychiatric exam: Anxious - Skin Skin Exam: Dry, Warm Additional comments: jaundice Assessment and Plan - Assessment and Plan (Free Text) Assessment: 37 y/o male with PMHx of HIV/AIDS and recently diagnosed Hodgkins Lymphoma stage 4 s/p first chemotherapy yesterday admitted with weakness, and persistent fevers. Chemo meds: Adriamycin/Bleomacyn/Vinblastine/Decarbazine. Plan: 1- Fevers, persistent -most likely 2/2 to malignancy -ANC 2.6, wnl -Tylenol for fever control -c/w Vancomycin and Meropenem IV (prophylaxis gram positive and gram negative microorganisms) -Hematology/Onc consulted. Recommendations are appreciated -ID on consulted. Recommendations are appreciated -f/u blood culture -f/u urine culture 2- Weakness -S/P first dose chemotherapy (1 day) -IV Fluids -zofran for N/V -Hematology/Onc consulted 3- Tachycardia - continues cardiac rehabilitation specialist - Oxygen via NC started 2 LPM and titrate as needed to maintain oxygen saturation >94 % - c/w metoprolol succ 25 mg PO daily 4- Pancytopenia -most likely 2/2 malignancy -s/p transfusion of 3 units of PRBC in prior admission -H/H stable after transfusion -no evidence of active bleeding at this time -PLt count 64 on this admission -WBC stable 2.8 -Hematology/Onc consulted 5- Hyponatremia - Na 130 - Restrict oral fluids - IV fluids 1 mtx 6- Elevated LFT - r/o portal trombosis - liver US 7- HIV/AIDS - lymphocyte panel on 05/17/17 - CD4 count <20, CD4 6% - C/W current HIV treatment (pt owns medications) - c/w Mepron ( atovaquone) 1500 mg PO daily (PCP prophylaxis) 8- DVT prophylaxis -thrombocytopenia -SCDs
[2017-05-21] MEDS ORDERED: VANCOMYCIN IVPB SCH (09:00)
[2017-05-21] MEDS ORDERED: PED IVPB SCH (09:00)
[2017-05-21 09:54] LABS: BLOOD UREA NITROGEN 24 mg/dl (9-20); CALCIUM 7.5 mg/dL (8.4-10.2); GFR AFRICAN-AMERICAN > 60; GFR NON-AFRICAN AMERICAN > 60
[2017-05-21 10:00] LABS: BASO % 0.1 % (0.0-2.0); EOS % 0.1 % (0.0-4.0); HEMOGLOBIN 8.8 g/dL (12.0-18.0); LYMPH # 0.1 K/uL (1.0-4.3); LYMPH % 2.6 % (20.0-40.0); MEAN CELL VOLUME 80.1 fl (80.0-94.0); MEAN CORPUSCULAR HEMOGLOBIN 26.3 pg (27.0-31.0); MEAN CORPUSCULAR HGB CONC 32.8 g/dL (33.0-37.0); MEAN PLATELET VOLUME 8.6 fl (7.2-11.7); MONO # 0.1 K/uL (0.0-0.8); NEUT # 2.6 K/uL (1.8-7.0); NEUT % 92.2 % (50.0-75.0); NRBC % 0.4 % (0.0-0.0); RBC 3.34 Mil/uL (4.40-5.90); RED CELL DISTRIBUTION WIDTH 18.5 % (11.5-14.5); WHITE BLOOD COUNT 2.9 K/uL (4.8-10.8)
[2017-05-21 11:02] LABS: SQUAMOUS EPITHIAL < 1 /hpf (0-5); URINE BACTERIA RARE (<OCC); URINE BILIRUBIN SMALL (NEGATIVE); URINE BLOOD NEGATIVE (NEGATIVE); URINE CLARITY CLOUDY (Clear); URINE COLOR AMBER (YELLOW); URINE GLUCOSE (UA) NEG (Normal); URINE LEUKOCYTE ESTERASE NEG Leu/uL (Negative); URINE PROTEIN 30 mg/dL (NEGATIVE); URINE UROBILINOGEN 0.2-1.0 mg/dL (0.2-1.0)
--- NOTE | 2017-05-21 14:37 | CP.PCM.CON ---
History of Present Illness - History of Present Illness History of Present Illness: Infcetious Disease Consultation Note- asked to see this patient ( known to me from last admission ) for immune supprresion and fever. HPI- Patietn well known to me from his last admission . pt. s/o p his first chemotherpay session yesterday for the newly diagnosed Hodgkin;s lymphoma at 's office and back to the hospital for c/o weakness and fever. patient is a 37 year old male with HIV who was initially admitted 4 weeks ago with c/o fever and abd distention and diarrhea was found to have liver lesions and splenomegaly and lymphadenopthayand liver bx revealed Hodgkin's lymphoma and all blood and urine cx were negative and his diarrhea resolved and despite being on empiric IV antibiotics his fevers continued daily. pt. was supposed to f/u with heme/onc to start chemo but he ended up coming back to hospital last week because of increased abdominal girth and weakness and continue fevers and again all ID work up as done and cultures were negative adn as per to start chemo as pt's condition would not improve without chemo . risk and benefits of the chemo were all explained to patietn adn his mother and he decided to go ahead and start the chomo and he had his first session yesterday. pt. has had fevers for past 3 weeks which is assumed to be from his undelying malignancy as all blood and urine cx have remained negative . pt. has been on empiric abx as well since his immune status is compromised with CD4 of 17 eventhough his VL has been undetectable. pt. f/u at the [facility] with and his stribild was changed to abcarvi yesteray since he is now undergoing chemotherpay( to prevent DDi as per ). Pt. explains he feels slightly better post chemo and his wekaness is slightly less and he has attempted to walk alittle in the hallway but gets sob after few steps . he also c/o his legs getting swollen. denies any diarrhea and denies any abd. pain. denies any nausea or vomiting PMD: Laura at [facility] Hemo/Onc Dr. Palmer PMHx: HIV, low CD4(17/ tested on 04/25/17), Vitiligo, recent diagnosed Hodgkins Lymphoma stage 4 ( on Tuesday05/09/17 per Hemo/Onc Dr. Palmer) Meds-reviewed ALL: NKDA PsurgHx: buttock implants FamilyHx: father heart disease, mother healthy Socialhx: social ETOH, denies Tobacco/drug abuse Next of Kin: Mother, Elvia Garcia Code Status: full code Review of Systems - Review of Systems Review of Systems: ROS- + weakness, + fevers, + abdominal distention , denies any abd. pain, denies any nausea or vomiting. denies any cough, + sob with walking few steps, denies any chest pain, denies any diarrhea denies any dysurea LE swelling Past Patient History - Infectious Disease Hx of Infectious Diseases: None - Past Medical History & Family History Past Medical History?: Yes - Past Social History Smoking Status: Never Smoked - CARDIAC Hx Cardiac Disorders: No - PULMONARY Hx Respiratory Disorders: No - NEUROLOGICAL Hx Neurological Disorder: No - HEENT Hx HEENT Problems: No Hx Blind: No - RENAL Hx Chronic Kidney Disease: No - ENDOCRINE/METABOLIC Hx Endocrine Disorders: No - HEMATOLOGICAL/ONCOLOGICAL Hx Blood Disorders: Yes Hx Blood Transfusions: Yes Hx Blood Transfusion Reaction: No Hx Cancer: Yes (hodgkin's lymphoma) Hx Human Immunodeficiency Virus (HIV): Yes (vl undetectable) - INTEGUMENTARY Hx Dermatological Problems: No - MUSCULOSKELETAL/RHEUMATOLOGICAL Hx Musculoskeletal Disorders: No Hx Falls: No - GASTROINTESTINAL Hx Gastrointestinal Disorders: No - GENITOURINARY/GYNECOLOGICAL Hx Genitourinary Disorders: No - PSYCHIATRIC Hx Psychophysiologic Disorder: No Hx Emotional Abuse: No Hx Physical Abuse: No Hx Substance Use: No - SURGICAL HISTORY Hx Surgeries: No Other/Comment: STOMACH BIOPSY - ANESTHESIA Hx Anesthesia: Yes Hx Anesthesia Reactions: No Hx Malignant Hyperthermia: No Meds Allergies/Adverse Reactions: Allergies Allergy/AdvReac Type Severity Reaction Status Date / Time ibuprofen [From Motrin] Allergy RASH Verified 05/20/17 17:08 - Medications Medications: Current Medications Acetaminophen (Tylenol 325mg Tab) 650 mg PO Q4 PRN PRN Reason: Pain, Mild (1-3) Last Admin: 05/21/17 05:11 Dose: 650 mg Atovaquone (Mepron) 1,500 mg PO DAILY [facility] PRN Reason: Protocol Last Admin: 05/21/17 08:28 Dose: 1,500 mg Heparin Sodium (Porcine) (Heparin) 5,000 units SC Q12 [facility] PRN Reason: Protocol Home Med (Patient's Own Medication) 1 unit PO DAILY [facility] Last Admin: 05/21/17 08:28 Dose: 1 unit Meropenem 1 gm/ Sodium (Chloride) 100 mls @ 100 mls/hr IVPB Q8 [facility] PRN Reason: Protocol Last Admin: 05/21/17 08:25 Dose: 100 mls/hr Vancomycin HCl 1 gm/ Sodium (Chloride) 250 mls @ 125 mls/hr IVPB DAILY [facility] Last Admin: 05/21/17 10:00 Dose: 125 mls/hr Sodium Chloride (Sodium Chloride 0.9%) 1,000 mls @ 50 mls/hr IV .Q20H [facility] Stop: 05/22/17 10:44 Last Admin: 05/21/17 10:56 Dose: 50 mls/hr Metoprolol Succinate (Toprol Xl) 25 mg PO DAILY [facility] Last Admin: 05/21/17 08:28 Dose: 25 mg Ondansetron HCl (Zofran Inj) 4 mg IVP Q6 PRN PRN Reason: Nausea/Vomiting Physical Exam - Constitutional Appears: No Acute Distress, Chronically Ill - Head Exam Head Exam: ATRAUMATIC - Eye Exam Eye Exam: EOMI, PERRL - Respiratory Exam Respiratory Exam: NORMAL BREATHING PATTERN Additional comments: slightly decreased breath sounds at the bases no wheezing - Cardiovascular Exam Cardiovascular Exam: RRR, +S1, +S2 - GI/Abdominal Exam Additional comments: distended soft NT, + bowel sounds no guarding No rebound - Extremities Exam Additional comments: trace LE edema B/L - Neurological Exam Neurological exam: Alert, Oriented x3 Results - Vital Signs Recent Vital Signs: Last Vital Signs Temp 98.0 F 05/21/17 12:00 Pulse 100 H 05/21/17 12:00 Resp 18 05/21/17 12:00 BP 110/75 05/21/17 12:00 Pulse Ox 98 05/21/17 12:00 - Labs Result Diagrams: 05/21/17 08:46 05/21/17 08:46 Labs: Laboratory Results - last 24 hr 05/20/17 05/20/17 05/20/17 17:26 17:40 17:40 WBC 2.8 L RBC 3.88 L Hgb 10.1 L Hct 31.2 L MCV 80.5 MCH 25.9 L MCHC 32.2 L RDW 18.5 H Plt Count 64 L MPV 11.6 Neut % (Auto) 90.4 H Lymph % (Auto) 3.4 L [place] % (Auto) 6.0 Eos % (Auto) 0.0 Baso % (Auto) 0.2 Neut # (Auto) 2.6 Lymph # (Auto) 0.1 L [place] # (Auto) 0.2 Eos # (Auto) 0.0 Baso # (Auto) 0.0 Neutrophils % (Manual) 84 H Band Neutrophils % 3 H Lymphocytes % (Manual) 6 L Monocytes % (Manual) 7 Platelet Estimate Decreased L Giant Platelets Present Polychromasia Slight Hypochromasia (manual) Moderate Poikilocytosis (manual Slight Anisocytosis (manual) Slight Microcytosis (manual) Moderate Ovalocytes Slight Acanthocytes (Spur) Slight pO2 61 H VBG pH 7.49 H VBG pCO2 24 L VBG HCO3 21.9 VBG Total CO2 19.0 L VBG O2 Sat (Calc) 98.9 H VBG Base Excess -3.9 L VBG Potassium 4.6 Sodium 126.0 L 130 L Chloride 102.0 100 Glucose 171 H Lactate 3.2 H FiO2 21.0 Potassium 4.4 Carbon Dioxide 14 L Anion Gap 20 BUN 19 Creatinine 0.7 L Est GFR ( Amer) > 60 Est GFR (Non-Af Amer) > 60 Random Glucose 157 H Calcium 7.7 L Total Bilirubin 6.3 H AST 74 H D ALT 53 Alkaline Phosphatase 534 H Total Protein 5.7 L Albumin 2.4 L Globulin 3.3 Albumin/Globulin Ratio 0.7 L Venous Blood Potassium 4.6 Urine Color Urine Clarity Urine pH Ur Specific [place] Urine Protein Urine Glucose (UA) Urine Ketones Urine Blood Urine Nitrate Urine Bilirubin Urine Urobilinogen Ur Leukocyte Esterase Urine RBC (Auto) Urine Microscopic WBC Ur Squamous Epith Cells Urine Bacteria 05/21/17 05/21/17 05/21/17 08:46 08:46 10:30 WBC 2.9 L RBC 3.34 L Hgb 8.8 L Hct 26.8 L MCV 80.1 MCH 26.3 L MCHC 32.8 L RDW 18.5 H Plt Count 27 L* MPV 8.6 Neut % (Auto) 92.2 H Lymph % (Auto) 2.6 L [place] % (Auto) 5.0 Eos % (Auto) 0.1 Baso % (Auto) 0.1 Neut # (Auto) 2.6 Lymph # (Auto) 0.1 L [place] # (Auto) 0.1 Eos # (Auto) 0.0 Baso # (Auto) 0.0 Neutrophils % (Manual) Band Neutrophils % Lymphocytes % (Manual) Monocytes % (Manual) Platelet Estimate Giant Platelets Polychromasia Hypochromasia (manual) Poikilocytosis (manual Anisocytosis (manual) Microcytosis (manual) Ovalocytes Acanthocytes (Spur) pO2 VBG pH VBG pCO2 VBG HCO3 VBG Total CO2 VBG O2 Sat (Calc) VBG Base Excess VBG Potassium Sodium 132 Chloride 102 Glucose Lactate FiO2 Potassium 4.4 Carbon Dioxide 18 L Anion Gap 16 BUN 24 H Creatinine 0.7 L Est GFR ( Amer) > 60 Est GFR (Non-Af Amer) > 60 Random Glucose 109 Calcium 7.5 L Total Bilirubin AST ALT Alkaline Phosphatase Total Protein Albumin Globulin Albumin/Globulin Ratio Venous Blood Potassium Urine Color [place] Urine Clarity Cloudy Urine pH 6.0 Ur Specific [place] 1.024 Urine Protein 30 Urine Glucose (UA) Neg Urine Ketones Negative Urine Blood Negative Urine Nitrate Negative Urine Bilirubin Small Urine Urobilinogen 0.2-1.0 Ur Leukocyte Esterase Neg Urine RBC (Auto) 2 Urine Microscopic WBC 4 Ur Squamous Epith Cells < 1 Urine Bacteria Rare Laboratory Results - last 72 hr 05/20/17 05/20/17 05/20/17 17:26 17:40 17:40 WBC 2.8 L RBC 3.88 L Hgb 10.1 L Hct 31.2 L MCV 80.5 MCH 25.9 L MCHC 32.2 L RDW 18.5 H Plt Count 64 L MPV 11.6 Neut % (Auto) 90.4 H Lymph % (Auto) 3.4 L [place] % (Auto) 6.0 Eos % (Auto) 0.0 Baso % (Auto) 0.2 Neut # (Auto) 2.6 Lymph # (Auto) 0.1 L [place] # (Auto) 0.2 Eos # (Auto) 0.0 Baso # (Auto) 0.0 Neutrophils % (Manual) 84 H Band Neutrophils % 3 H Lymphocytes % (Manual) 6 L Monocytes % (Manual) 7 Platelet Estimate Decreased L Giant Platelets Present Polychromasia Slight Hypochromasia (manual) Moderate Poikilocytosis (manual Slight Anisocytosis (manual) Slight Microcytosis (manual) Moderate Ovalocytes Slight Acanthocytes (Spur) Slight pO2 61 H VBG pH 7.49 H VBG pCO2 24 L VBG HCO3 21.9 VBG Total CO2 19.0 L VBG O2 Sat (Calc) 98.9 H VBG Base Excess -3.9 L VBG Potassium 4.6 Sodium 126.0 L 130 L Chloride 102.0 100 Glucose 171 H Lactate 3.2 H FiO2 21.0 Potassium 4.4 Carbon Dioxide 14 L Anion Gap 20 BUN 19 Creatinine 0.7 L Est GFR ( Amer) > 60 Est GFR (Non-Af Amer) > 60 Random Glucose 157 H Calcium 7.7 L Total Bilirubin 6.3 H AST 74 H D ALT 53 Alkaline Phosphatase 534 H Total Protein 5.7 L Albumin 2.4 L Globulin 3.3 Albumin/Globulin Ratio 0.7 L Venous Blood Potassium 4.6 Urine Color Urine Clarity Urine pH Ur Specific [place] Urine Protein Urine Glucose (UA) Urine Ketones Urine Blood Urine Nitrate Urine Bilirubin Urine Urobilinogen Ur Leukocyte Esterase Urine RBC (Auto) Urine Microscopic WBC Ur Squamous Epith Cells Urine Bacteria 05/21/17 05/21/17 05/21/17 08:46 08:46 10:30 WBC 2.9 L RBC 3.34 L Hgb 8.8 L Hct 26.8 L MCV 80.1 MCH 26.3 L MCHC 32.8 L RDW 18.5 H Plt Count 27 L* MPV 8.6 Neut % (Auto) 92.2 H Lymph % (Auto) 2.6 L [place] % (Auto) 5.0 Eos % (Auto) 0.1 Baso % (Auto) 0.1 Neut # (Auto) 2.6 Lymph # (Auto) 0.1 L [place] # (Auto) 0.1 Eos # (Auto) 0.0 Baso # (Auto) 0.0 Neutrophils % (Manual) Band Neutrophils % Lymphocytes % (Manual) Monocytes % (Manual) Platelet Estimate Giant Platelets Polychromasia Hypochromasia (manual) Poikilocytosis (manual Anisocytosis (manual) Microcytosis (manual) Ovalocytes Acanthocytes (Spur) pO2 VBG pH VBG pCO2 VBG HCO3 VBG Total CO2 VBG O2 Sat (Calc) VBG Base Excess VBG Potassium Sodium 132 Chloride 102 Glucose Lactate FiO2 Potassium 4.4 Carbon Dioxide 18 L Anion Gap 16 BUN 24 H Creatinine 0.7 L Est GFR ( Amer) > 60 Est GFR (Non-Af Amer) > 60 Random Glucose 109 Calcium 7.5 L Total Bilirubin AST ALT Alkaline Phosphatase Total Protein Albumin Globulin Albumin/Globulin Ratio Venous Blood Potassium Urine Color [place] Urine Clarity Cloudy Urine pH 6.0 Ur Specific [place] 1.024 Urine Protein 30 Urine Glucose (UA) Neg Urine Ketones Negative Urine Blood Negative Urine Nitrate Negative Urine Bilirubin Small Urine Urobilinogen 0.2-1.0 Ur Leukocyte Esterase Neg Urine RBC (Auto) 2 Urine Microscopic WBC 4 Ur Squamous Epith Cells < 1 Urine Bacteria Rare Microbiology 05/17/17 23:46 Urine,Clean Catch Urine Culture - Final No Growth (<1,000 CFU/ML) 05/18/17 21:30 Blood-Venous Blood Culture - Preliminary 05/18/17 21:30 Blood-Venous NO GROWTH AFTER 48 HOURS 05/18/17 20:45 Blood-Venous Blood Culture - Preliminary 05/18/17 20:45 Blood-Venous NO GROWTH AFTER 48 HOURS 05/18/17 10:34 Blood Fungal Culture - Preliminary 05/17/17 21:00 Blood-Venous Blood Culture - Preliminary 05/17/17 21:00 Blood-Venous NO GROWTH AFTER 3 DAYS 05/17/17 20:30 Blood-Venous Blood Culture - Preliminary 05/17/17 20:30 Blood-Venous NO GROWTH AFTER 3 DAYS 05/16/17 20:15 Blood Blood Culture - Preliminary 05/16/17 20:15 Blood NO GROWTH AFTER 4 DAYS 05/16/17 19:45 Blood Blood Culture - Preliminary 05/16/17 19:45 Blood NO GROWTH AFTER 4 DAYS Accession No. : [id number] Patient Name / ID : CHENTE ESCOBAR / [id number] Exam Date : 05/20/2017 17:49:30 ( Approved ) Study Comment : Sex / Age : M / 37Y Creator : Mark Rangel MD Dictator : Mark Rangel MD Interactive Graphic Designer : Head Refrigerating Engineer : Mark Rangel MD Approver2 : Report Date : 05/21/2017 08:26:50 My Comment : HISTORY: cough COMPARISON: 05/19/2017 FINDINGS: LUNGS: No active pulmonary disease. PLEURA: No significant pleural effusion identified, no pneumothorax apparent. CARDIOVASCULAR: Normal. OSSEOUS STRUCTURES: No significant abnormalities. VISUALIZED UPPER ABDOMEN: Normal. OTHER FINDINGS: None. IMPRESSION: No active disease. Assessment & Plan (1) HIV disease Status: Acute (2) Hodgkin's lymphoma Status: Acute (3) Anasarca Status: Acute (4) Fever Status: Acute - Assessment and Plan (Free Text) Assessment: A/P- 37 year old male with HIV f/u at [facility] on [address] with UD VL but CD4-17 , newly diagnosed stage $ Hodgkin;s lymphoma s/p first chemo yesterday admitted with weakness. fevers have been persistent for more than a month now. all blood and urine cx negative pt. kept on empiric broad spectrum IV abx for now since his immunesuppressed and likely will become neutropenic post chemo. febrile once a day cxr- negative anasarca secondary to the Hodgkin;s lymphoma. TTE negative for vegetations as per report. plan- continue with empiric IV vancomycin day #5 since pt. is immunocompromised keep vanco trough <15. continue with empiric meropnem day #3 to cover for nosocomial pathogens since pt. was recently hospitalized and is immune suppressed pending further results. may need to be on antifunglal prophylaxis as well. advise nystatin mouth wash PRN. HIV meds and meds to prevent opportunistic infection as per his HIV doctor at [facility]. advised pt. at length since post chemo his wbc will go even lower to limit the number of visitors to 1-2 at most and make sure nobody sick visits him and for visitors to wear masks and wash hands with soap and water carefully and /or use handsanitizers. also advised to use incentive spirometer use to prevent atelectasis. check LE dopplers r/o DVT. All above d/w patient at length and he verbalizes full understanding of all above and agrees with above plan of care. Thank you for allowing me to take part in the care of this patient.
--- NOTE | 2017-05-21 16:40 | CP.PCM.CON ---
History of Present Illness - History of Present Illness History of Present Illness: 37 year old male with a history of HIV/AIDS, stage IVb classical hodgkins diagnosed 04/2017, s/p 1st cycle chemotherapy (05/20/17 ABVD) admitted with fevers tachycardia. The patient was treated with chemotherapy in my office yesterday and tolerated his treatment well. He notes to feeling fatigued, feverish, and weak on his way home and came to the ER. He notes to feeling better since coming to the hospital. Past medical history: HIV/AIDS, classical hodgkins lymphoma Past surgical history: Gluteal implants Family history: Denies hematologic and oncologic problems Social history: Denies tobacco, alcohol, and illicit drug use. Allergies: NKA Review of systems: All remaining review of systems including HEENT, cardiovacular, respiratory, gastrointestinal, genitourinary, musculoskeletal, dermatologic, neurologic, and psychiatric are negative unless mentioned in the HPI. Past Patient History - Infectious Disease Hx of Infectious Diseases: None - Past Medical History & Family History Past Medical History?: Yes - Past Social History Smoking Status: Never Smoked - CARDIAC Hx Cardiac Disorders: No - PULMONARY Hx Respiratory Disorders: No - NEUROLOGICAL Hx Neurological Disorder: No - HEENT Hx HEENT Problems: No Hx Blind: No - RENAL Hx Chronic Kidney Disease: No - ENDOCRINE/METABOLIC Hx Endocrine Disorders: No - HEMATOLOGICAL/ONCOLOGICAL Hx Blood Disorders: Yes Hx Blood Transfusions: Yes Hx Blood Transfusion Reaction: No Hx Cancer: Yes (hodgkin's lymphoma) Hx Human Immunodeficiency Virus (HIV): Yes (vl undetectable) - INTEGUMENTARY Hx Dermatological Problems: No - MUSCULOSKELETAL/RHEUMATOLOGICAL Hx Musculoskeletal Disorders: No Hx Falls: No - GASTROINTESTINAL Hx Gastrointestinal Disorders: No - GENITOURINARY/GYNECOLOGICAL Hx Genitourinary Disorders: No - PSYCHIATRIC Hx Psychophysiologic Disorder: No Hx Emotional Abuse: No Hx Physical Abuse: No Hx Substance Use: No - SURGICAL HISTORY Hx Surgeries: No Other/Comment: STOMACH BIOPSY - ANESTHESIA Hx Anesthesia: Yes Hx Anesthesia Reactions: No Hx Malignant Hyperthermia: No Meds Allergies/Adverse Reactions: Allergies Allergy/AdvReac Type Severity Reaction Status Date / Time ibuprofen [From Motrin] Allergy RASH Verified 05/20/17 17:08 - Medications Medications: Current Medications Acetaminophen (Tylenol 325mg Tab) 650 mg PO Q4 PRN PRN Reason: Pain, Mild (1-3) Last Admin: 05/21/17 05:11 Dose: 650 mg Atovaquone (Mepron) 1,500 mg PO DAILY [facility] PRN Reason: Protocol Last Admin: 05/21/17 08:28 Dose: 1,500 mg Heparin Sodium (Porcine) (Heparin) 5,000 units SC Q12 [facility] PRN Reason: Protocol Home Med (Patient's Own Medication) 1 unit PO DAILY [facility] Last Admin: 05/21/17 08:28 Dose: 1 unit Meropenem 1 gm/ Sodium (Chloride) 100 mls @ 100 mls/hr IVPB Q8 [facility] PRN Reason: Protocol Last Admin: 05/21/17 08:25 Dose: 100 mls/hr Vancomycin HCl 1 gm/ Sodium (Chloride) 250 mls @ 125 mls/hr IVPB DAILY [facility] Last Admin: 05/21/17 10:00 Dose: 125 mls/hr Sodium Chloride (Sodium Chloride 0.9%) 1,000 mls @ 50 mls/hr IV .Q20H [facility] Stop: 05/22/17 10:44 Last Admin: 05/21/17 10:56 Dose: 50 mls/hr Metoprolol Succinate (Toprol Xl) 25 mg PO DAILY [facility] Last Admin: 05/21/17 08:28 Dose: 25 mg Ondansetron HCl (Zofran Inj) 4 mg IVP Q6 PRN PRN Reason: Nausea/Vomiting Saliva Substitute (First Magic Mouthwash) 5 ml PO Q4 PRN PRN Reason: Sore Throat Physical Exam - Head Exam Head Exam: ATRAUMATIC - Eye Exam Eye Exam: Normal appearance - ENT Exam ENT Exam: Mucous Membranes Dry - Respiratory Exam Respiratory Exam: NORMAL BREATHING PATTERN - Cardiovascular Exam Cardiovascular Exam: +S1, +S2 - GI/Abdominal Exam GI & Abdominal Exam: Normal Bowel Sounds - Extremities Exam Extremities exam: Positive for: pedal edema - Neurological Exam Neurological exam: Oriented x3 - Psychiatric Exam Psychiatric exam: Normal Affect, Normal Mood - Skin Skin Exam: Warm Results - Vital Signs Recent Vital Signs: Last Vital Signs Temp 98.0 F 05/21/17 12:00 Pulse 100 H 05/21/17 12:00 Resp 18 05/21/17 12:00 BP 110/75 05/21/17 12:00 Pulse Ox 98 05/21/17 12:00 - Labs Result Diagrams: 05/21/17 08:46 05/21/17 08:46 Labs: Laboratory Results - last 24 hr 05/20/17 05/20/17 05/20/17 17:26 17:40 17:40 WBC 2.8 L RBC 3.88 L Hgb 10.1 L Hct 31.2 L MCV 80.5 MCH 25.9 L MCHC 32.2 L RDW 18.5 H Plt Count 64 L MPV 11.6 Neut % (Auto) 90.4 H Lymph % (Auto) 3.4 L [place] % (Auto) 6.0 Eos % (Auto) 0.0 Baso % (Auto) 0.2 Neut # (Auto) 2.6 Lymph # (Auto) 0.1 L [place] # (Auto) 0.2 Eos # (Auto) 0.0 Baso # (Auto) 0.0 Neutrophils % (Manual) 84 H Band Neutrophils % 3 H Lymphocytes % (Manual) 6 L Monocytes % (Manual) 7 Platelet Estimate Decreased L Giant Platelets Present Polychromasia Slight Hypochromasia (manual) Moderate Poikilocytosis (manual Slight Anisocytosis (manual) Slight Microcytosis (manual) Moderate Ovalocytes Slight Acanthocytes (Spur) Slight pO2 61 H VBG pH 7.49 H VBG pCO2 24 L VBG HCO3 21.9 VBG Total CO2 19.0 L VBG O2 Sat (Calc) 98.9 H VBG Base Excess -3.9 L VBG Potassium 4.6 Sodium 126.0 L 130 L Chloride 102.0 100 Glucose 171 H Lactate 3.2 H FiO2 21.0 Potassium 4.4 Carbon Dioxide 14 L Anion Gap 20 BUN 19 Creatinine 0.7 L Est GFR ( Amer) > 60 Est GFR (Non-Af Amer) > 60 Random Glucose 157 H Calcium 7.7 L Total Bilirubin 6.3 H AST 74 H D ALT 53 Alkaline Phosphatase 534 H Total Protein 5.7 L Albumin 2.4 L Globulin 3.3 Albumin/Globulin Ratio 0.7 L Venous Blood Potassium 4.6 Urine Color Urine Clarity Urine pH Ur Specific [place] Urine Protein Urine Glucose (UA) Urine Ketones Urine Blood Urine Nitrate Urine Bilirubin Urine Urobilinogen Ur Leukocyte Esterase Urine RBC (Auto) Urine Microscopic WBC Ur Squamous Epith Cells Urine Bacteria 05/21/17 05/21/17 05/21/17 08:46 08:46 10:30 WBC 2.9 L RBC 3.34 L Hgb 8.8 L Hct 26.8 L MCV 80.1 MCH 26.3 L MCHC 32.8 L RDW 18.5 H Plt Count 27 L* MPV 8.6 Neut % (Auto) 92.2 H Lymph % (Auto) 2.6 L [place] % (Auto) 5.0 Eos % (Auto) 0.1 Baso % (Auto) 0.1 Neut # (Auto) 2.6 Lymph # (Auto) 0.1 L [place] # (Auto) 0.1 Eos # (Auto) 0.0 Baso # (Auto) 0.0 Neutrophils % (Manual) Band Neutrophils % Lymphocytes % (Manual) Monocytes % (Manual) Platelet Estimate Giant Platelets Polychromasia Hypochromasia (manual) Poikilocytosis (manual Anisocytosis (manual) Microcytosis (manual) Ovalocytes Acanthocytes (Spur) pO2 VBG pH VBG pCO2 VBG HCO3 VBG Total CO2 VBG O2 Sat (Calc) VBG Base Excess VBG Potassium Sodium 132 Chloride 102 Glucose Lactate FiO2 Potassium 4.4 Carbon Dioxide 18 L Anion Gap 16 BUN 24 H Creatinine 0.7 L Est GFR ( Amer) > 60 Est GFR (Non-Af Amer) > 60 Random Glucose 109 Calcium 7.5 L Total Bilirubin AST ALT Alkaline Phosphatase Total Protein Albumin Globulin Albumin/Globulin Ratio Venous Blood Potassium Urine Color [place] Urine Clarity Cloudy Urine pH 6.0 Ur Specific [place] 1.024 Urine Protein 30 Urine Glucose (UA) Neg Urine Ketones Negative Urine Blood Negative Urine Nitrate Negative Urine Bilirubin Small Urine Urobilinogen 0.2-1.0 Ur Leukocyte Esterase Neg Urine RBC (Auto) 2 Urine Microscopic WBC 4 Ur Squamous Epith Cells < 1 Urine Bacteria Rare Assessment & Plan (1) Pancytopenia Assessment and Plan: multifactorial HIV/AIDS, hodgkins lymphoma, recent chemotherapy anemia of HIV and chronic disease will start Granix given recent high myelosuppressive chemotherapy transfusion support PRN Status: Acute (2) Hodgkin's lymphoma Assessment and Plan: stage IVb s/p cycle 1 ABVD chemotherapy 05/20/17 outpatient treatment Thank you for this interesting consult. Status: Acute
[2017-05-22] MEDS: Meropenem 1 GM in Sodium Chloride 0.9% 100 ML IVPB SCH ×3 (00:09→17:40)
[2017-05-22 07:40] LABS: ALB/GLOB RATIO 0.7 (1.0-2.1); ALBUMIN 1.9 g/dL (3.5-5.0); ALT/SGPT 61 U/L (21-72); AST/SGOT 89 U/L (17-59); BLOOD UREA NITROGEN 38 mg/dl (9-20); CALCIUM 7.9 mg/dL (8.4-10.2); GFR AFRICAN-AMERICAN > 60; GFR NON-AFRICAN AMERICAN > 60
[2017-05-22 07:44] LABS: BASO % 0.1 % (0.0-2.0); HEMOGLOBIN 8.4 g/dL (12.0-18.0); LYMPH # 0.1 K/uL (1.0-4.3); LYMPH % 1.8 % (20.0-40.0); MEAN CELL VOLUME 79.5 fl (80.0-94.0); MEAN CORPUSCULAR HEMOGLOBIN 26.8 pg (27.0-31.0); MEAN CORPUSCULAR HGB CONC 33.7 g/dL (33.0-37.0); MEAN PLATELET VOLUME 7.2 fl (7.2-11.7); MONO % 1.3 % (0.0-10.0); NEUT # 3.4 K/uL (1.8-7.0); NEUT % 96.8 % (50.0-75.0); NRBC % 0.1 % (0.0-0.0); RBC 3.13 Mil/uL (4.40-5.90); RED CELL DISTRIBUTION WIDTH 18.8 % (11.5-14.5); WHITE BLOOD COUNT 3.5 K/uL (4.8-10.8)
[2017-05-22] MEDS: Atovaquone 750 mg/5 ml Susp UD PO SCH (09:30)
--- NOTE | 2017-05-22 10:08 | CP.PCM.PN ---
Subjective - Date & Time of Evaluation Date of Evaluation: 05/22/17 Time of Evaluation: 10:05 - Subjective Subjective: overnight, pt had throat irritation, no jud identified at the time, magic mouth wash ordered. Toleration PO. abd distended. legs edemetous. c/o penis foreskin increased in amount. Ambulating. on neutropenic precautions. Objective - Vital Signs/Intake and Output Vital Signs (last 24 hours): Temp Pulse Resp BP Pulse Ox 98.6 F 112 H 20 104/65 97 05/22/17 08:31 05/22/17 08:31 05/22/17 08:31 05/22/17 08:31 05/22/17 08:31 - Medications Medications: Current Medications Acetaminophen (Tylenol 325mg Tab) 650 mg PO Q4 PRN PRN Reason: Pain, Mild (1-3) Last Admin: 05/21/17 05:11 Dose: 650 mg Acetaminophen (Tylenol 325mg Tab) 650 mg PO Q4 PRN PRN Reason: Fever >100.4 F Last Admin: 05/22/17 02:48 Dose: 650 mg Atovaquone (Mepron) 1,500 mg PO DAILY [facility] PRN Reason: Protocol Last Admin: 05/21/17 08:28 Dose: 1,500 mg Heparin Sodium (Porcine) (Heparin) 5,000 units SC Q12 [facility] PRN Reason: Protocol Home Med (Patient's Own Medication) 1 unit PO DAILY [facility] Last Admin: 05/21/17 08:28 Dose: 1 unit Meropenem 1 gm/ Sodium (Chloride) 100 mls @ 100 mls/hr IVPB Q8 [facility] PRN Reason: Protocol Last Admin: 05/22/17 00:09 Dose: 100 mls/hr Vancomycin HCl 1 gm/ Sodium (Chloride) 250 mls @ 125 mls/hr IVPB DAILY [facility] Last Admin: 05/21/17 10:00 Dose: 125 mls/hr Sodium Chloride (Sodium Chloride 0.9%) 1,000 mls @ 50 mls/hr IV .Q20H [facility] Stop: 05/22/17 10:44 Last Admin: 05/21/17 10:56 Dose: 50 mls/hr Metoprolol Succinate (Toprol Xl) 25 mg PO DAILY [facility] Last Admin: 05/21/17 08:28 Dose: 25 mg Ondansetron HCl (Zofran Inj) 4 mg IVP Q6 PRN PRN Reason: Nausea/Vomiting Saliva Substitute (First Magic Mouthwash) 5 ml PO Q4 PRN PRN Reason: Sore Throat - Labs Labs: 05/22/17 06:45 05/22/17 06:45 - Constitutional Appears: Chronically Ill - Head Exam Head Exam: ATRAUMATIC, NORMAL INSPECTION - Eye Exam Eye Exam: Scleral icterus - ENT Exam ENT Exam: Mucous Membranes Moist Additional comments: OP with white spots, cobblestoning, some small ulcers, blood tinged areas with break in mucosa - Neck Exam Neck Exam: Full ROM, Normal Inspection - Respiratory Exam Respiratory Exam: Clear to Ausculation Bilateral - Cardiovascular Exam Cardiovascular Exam: REGULAR RHYTHM - GI/Abdominal Exam GI & Abdominal Exam: Distended, Tenderness - Extremities Exam Extremities Exam: Pedal Edema. absent: Tenderness - Back Exam Back Exam: NORMAL INSPECTION - Neurological Exam Neurological Exam: Alert, Oriented x3 - Skin Skin Exam: Dry, Warm Assessment and Plan - Assessment and Plan (Free Text) Assessment: Assessment: 37yo M with PMHx of HIV/AIDS and recently diagnosed Hodgkins Lymphoma stage 4 s/ p chemo cycle #1 05/20/17 admitted for persistent fevers. Plan: US liver and b/l ext, ECHO, c/w empiric IV abx, started PO nystatin Fevers, persistent -most likely 2/2 to malignancy -Tylenol prn -ID on consulted. Recommendations are appreciated -blood culture NGTD -f/u urine culture -c/w Vancomycin and Meropenem IV (prophylaxis gram positive and gram negative microorganisms) -ECHO S4 lymphoma -s/p chemo cycle #1 05/20/17: Adriamycin/Bleomacyn/Vinblastine/Decarbazine -Hematology/Onc consulted. Recommendations are appreciated oral thrush -started PO nystatin -magic mouth wash Tachycardia - continues monitoring manager - Oxygen via NC started 2 LPM and titrate as needed to maintain oxygen saturation >94 % - c/w metoprolol succ 25 mg PO daily -NS 50cc/hr Edema -may be 2/2 NS MIVF, but rate is 50cc/hr Pancytopenia -most likely 2/2 malignancy -transfuse pRBC if Hgb <8, FFPE if plt<10 -Granix Hyponatremia - Restrict oral fluids -NS 50cc/hr Elevated LFTs/bilirubin with liver mets - liver US r/o portal trombosis HIV/AIDS - lymphocyte panel on 05/17/17 - CD4 count <20, CD4 6% - C/W current HIV treatment (pt owns medications, stopped Striblid, started Biktarvy once chemo started) - per ID stopped azithro 1x weekly (last dose 05/18/17) - c/w Mepron (atovaquone) 1500 mg PO daily (PCP prophylaxis) DVT prophylaxis -no pharmacological agents 2/2 thrombocytopenia -SCDs Code -Full, confirmed with pt 05/22/17
[2017-05-22] MEDS: Mag&Al/Simet/Diphen/Lido 237 ML KIT PO PRN (11:15)
[2017-05-22] MEDS: Metoprolol Succinate 25 mg XL Tab PO SCH (11:16)
[2017-05-22] MEDS: BIKTARVY PO SCH (11:16)
[2017-05-22] MEDS: Sodium Chloride 0.9% 1,000 ML IV SCH (11:31)
--- NOTE | 2017-05-22 12:25 | US ---
PROCEDURE: HISTORY: elevated LFTs COMPARISON: TECHNIQUE: FINDINGS: Enlarged liver measuring 2.2 centimeters with multiple hypoechoic lesions measuring up to 2 centimeters. Perihepatic ascites present with associated gallbladder wall thickening. Common bile duct measures 2 millimeters. Pancreas is unremarkable. The right kidney demonstrates no mass or hydronephrosis. No calculi observed. IMPRESSION: Echogenic liver with hepatomegaly and perihepatic ascites. Scattered hepatic lesions which are nonspecific in appearance measuring 2 centimeters. Associated gallbladder wall thickening.
--- NOTE | 2017-05-22 13:05 | US ---
EXAM: Venous Doppler complete bilateral INDICATIONS: Evaluate for deep venous thrombosis. TECHNIQUE: Duplex venous evaluation of the both lower extremities was performed utilizing graded compression, color Doppler and spectral Doppler interrogation. COMPARISON: None available FINDINGS: There is normal morphology, compressibility, Doppler flow, and augmentation of both common femoral, femoral, and popliteal veins. Visualized portions of the posterior tibial veins are unremarkable. IMPRESSION: No evidence of deep venous thrombosis in the bilateral femoropopliteal systems.
[2017-05-22] MEDS: Nystatin 100,000 Units/ml Oral Susp 5 ml UD PO SCH ×3 (14:21→21:32)
--- NOTE | 2017-05-22 17:28 | CP.PCM.PN ---
Subjective - Date & Time of Evaluation Date of Evaluation: 05/22/17 Time of Evaluation: 16:35 - Subjective Subjective: Doing well overall, still spiking fevers. Objective - Vital Signs/Intake and Output Vital Signs (last 24 hours): Temp Pulse Resp BP Pulse Ox 99 F 137 H 20 114/71 95 05/22/17 16:08 05/22/17 16:08 05/22/17 16:08 05/22/17 16:08 05/22/17 16:08 - Medications Medications: Current Medications Acetaminophen (Tylenol 325mg Tab) 650 mg PO Q4 PRN PRN Reason: Pain, Mild (1-3) Last Admin: 05/21/17 05:11 Dose: 650 mg Acetaminophen (Tylenol 325mg Tab) 650 mg PO Q4 PRN PRN Reason: Fever >100.4 F Last Admin: 05/22/17 14:22 Dose: 650 mg Atovaquone (Mepron) 1,500 mg PO DAILY [facility] PRN Reason: Protocol Last Admin: 05/22/17 09:30 Dose: 1,500 mg Heparin Sodium (Porcine) (Heparin) 5,000 units SC Q12 [facility] PRN Reason: Protocol Home Med (Patient's Own Medication) 1 unit PO DAILY [facility] Last Admin: 05/22/17 11:16 Dose: 1 unit Meropenem 1 gm/ Sodium (Chloride) 100 mls @ 100 mls/hr IVPB Q8 [facility] PRN Reason: Protocol Last Admin: 05/22/17 10:14 Dose: 100 mls/hr Vancomycin HCl 1 gm/ Sodium (Chloride) 250 mls @ 125 mls/hr IVPB DAILY [facility] Last Admin: 05/22/17 11:18 Dose: 125 mls/hr Metoprolol Succinate (Toprol Xl) 25 mg PO DAILY [facility] Last Admin: 05/22/17 11:16 Dose: 25 mg Nystatin (Nystatin Oral Susp) 5 ml PO QID [facility] Last Admin: 05/22/17 14:21 Dose: 5 ml Ondansetron HCl (Zofran Inj) 4 mg IVP Q6 PRN PRN Reason: Nausea/Vomiting Saliva Substitute (First Magic Mouthwash) 5 ml PO Q4 PRN PRN Reason: Sore Throat Last Admin: 05/22/17 11:15 Dose: 5 ml - Labs Labs: 05/22/17 06:45 05/22/17 06:45 - Head Exam Head Exam: ATRAUMATIC - Eye Exam Eye Exam: Normal appearance - ENT Exam ENT Exam: Mucous Membranes Dry - Respiratory Exam Respiratory Exam: NORMAL BREATHING PATTERN - Cardiovascular Exam Cardiovascular Exam: +S1, +S2 - GI/Abdominal Exam GI & Abdominal Exam: Normal Bowel Sounds - Extremities Exam Extremities Exam: Pedal Edema Assessment and Plan (1) Pancytopenia Assessment & Plan: HIV/AIDS, lymphoma, recent chemotherapy on Granix for leukopenia; will redose today transfuse if hgb < 8 and plt < 10,000 Status: Acute (2) Hodgkin's lymphoma Assessment & Plan: stage IVb will check uric acid for tumor lysis s/p chemotherapy Status: Acute
[2017-05-23] MEDS: Meropenem 1 GM in Sodium Chloride 0.9% 100 ML IVPB SCH ×3 (00:15→16:08)
[2017-05-23] MEDS ORDERED: Sodium Chloride 0.9% 1,000 ML IV SCH (00:30)
[2017-05-23 05:39] LABS: BASO % 0.4 % (0.0-2.0); EOS % 0.9 % (0.0-4.0); LYMPH # 0.1 K/uL (1.0-4.3); LYMPH % 1.9 % (20.0-40.0); MEAN CELL VOLUME 79.5 fl (80.0-94.0); MEAN CORPUSCULAR HEMOGLOBIN 26.7 pg (27.0-31.0); MEAN CORPUSCULAR HGB CONC 33.6 g/dL (33.0-37.0); NEUT # 3.4 K/uL (1.8-7.0); NEUT % 95.8 % (50.0-75.0); RBC 3.35 Mil/uL (4.40-5.90); RED CELL DISTRIBUTION WIDTH 19.1 % (11.5-14.5); WHITE BLOOD COUNT 3.6 K/uL (4.8-10.8)
[2017-05-23 05:44] LABS: PLATELET COUNT 21 K/uL (130-400)
[2017-05-23 06:07] LABS: ALB/GLOB RATIO 0.6 (1.0-2.1); ALBUMIN 1.9 g/dL (3.5-5.0); ALT/SGPT 83 U/L (21-72); AST/SGOT 78 U/L (17-59); BLOOD UREA NITROGEN 44 mg/dl (9-20); CALCIUM 7.8 mg/dL (8.4-10.2); GFR AFRICAN-AMERICAN > 60; GFR NON-AFRICAN AMERICAN > 60; URIC ACID 3.9 mg/Dl (3.5-8.5)
[2017-05-23 07:36] LABS: BANDS 4 % (0-2); LYMPHOCYTE 2 % (20-50); MONOCYTE 1 % (0-10); NEUTROPHIL 93 % (42-75); TOTAL CELLS COUNTED 100
[2017-05-23 07:38] LABS: ANISOCYTOSIS SLIGHT
[2017-05-23 07:39] LABS: ACANTHOCYTES SLIGHT; LARGE PLATELETS PRESENT; OVALOCYTES SLIGHT; SCHISTOCYTES SLIGHT
[2017-05-23 07:40] LABS: PLATELET ESTIMATE MARKEDLY DECREASED (NORMAL)
--- NOTE | 2017-05-23 08:00 | CP.PCM.PN ---
Subjective - Date & Time of Evaluation Date of Evaluation: 05/23/17 Time of Evaluation: 08:00 - Subjective Subjective: Patient seen and examined this morning at bedside, no acute overnight event. C/ o sob, noted tachypneic, on NC at 2L. abd distended. legs edemetous. c/o penis foreskin increased in amount. Ambulating. on neutropenic precautions. Objective - Vital Signs/Intake and Output Vital Signs (last 24 hours): Temp Pulse Resp BP Pulse Ox 100.6 F H 136 H 16 110/62 97 05/23/17 05:41 05/23/17 05:41 05/23/17 05:41 05/23/17 05:41 05/23/17 05:41 - Medications Medications: Current Medications Acetaminophen (Tylenol 325mg Tab) 650 mg PO Q4 PRN PRN Reason: Pain, Mild (1-3) Last Admin: 05/21/17 05:11 Dose: 650 mg Acetaminophen (Tylenol 325mg Tab) 650 mg PO Q4 PRN PRN Reason: Fever >100.4 F Last Admin: 05/23/17 03:55 Dose: 650 mg Atovaquone (Mepron) 1,500 mg PO DAILY [facility] PRN Reason: Protocol Last Admin: 05/22/17 09:30 Dose: 1,500 mg Heparin Sodium (Porcine) (Heparin) 5,000 units SC Q12 [facility] PRN Reason: Protocol Home Med (Patient's Own Medication) 1 unit PO DAILY [facility] Last Admin: 05/22/17 11:16 Dose: 1 unit Meropenem 1 gm/ Sodium (Chloride) 100 mls @ 100 mls/hr IVPB Q8 [facility] PRN Reason: Protocol Last Admin: 05/23/17 00:15 Dose: 100 mls/hr Vancomycin HCl 1 gm/ Sodium (Chloride) 250 mls @ 125 mls/hr IVPB DAILY [facility] Last Admin: 05/22/17 11:18 Dose: 125 mls/hr Sodium Chloride (Sodium Chloride 0.9%) 1,000 mls @ 50 mls/hr IV .Q20H [facility] Stop: 05/24/17 00:24 Last Admin: 05/23/17 00:45 Dose: 50 mls/hr Metoprolol Succinate (Toprol Xl) 25 mg PO DAILY [facility] Last Admin: 05/22/17 11:16 Dose: 25 mg Nystatin (Nystatin Oral Susp) 5 ml PO QID [facility] Last Admin: 05/22/17 21:32 Dose: 5 ml Ondansetron HCl (Zofran Inj) 4 mg IVP Q6 PRN PRN Reason: Nausea/Vomiting Saliva Substitute (First Magic Mouthwash) 5 ml PO Q4 PRN PRN Reason: Sore Throat Last Admin: 05/22/17 11:15 Dose: 5 ml - Labs Labs: 05/23/17 04:20 05/23/17 04:20 - Constitutional Appears: In Acute Distress (tachypneic) - Head Exam Head Exam: NORMAL INSPECTION - Eye Exam Eye Exam: EOMI, PERRL, Scleral icterus - ENT Exam ENT Exam: Mucous Membranes Dry (white spots, cobblestoning, some small ulcers, blood tinged areas with break in mucosa.) - Respiratory Exam Respiratory Exam: Rales (L lung base), NORMAL BREATHING PATTERN. absent: Chest Wall Tenderness, Wheezes - Cardiovascular Exam Cardiovascular Exam: Tachycardia, REGULAR RHYTHM, +S1, +S2 - GI/Abdominal Exam GI & Abdominal Exam: Distended, Tenderness, Normal Bowel Sounds - Extremities Exam Additional comments: Edematous legs b/l - Neurological Exam Neurological Exam: Alert, Awake, Oriented x3 - Skin Additional comments: Jaundiced Assessment and Plan - Assessment and Plan (Free Text) Assessment: 37yo M with PMHx of HIV/AIDS and recently diagnosed Hodgkins Lymphoma stage 4 s/ p chemo cycle #1 05/20/17 admitted for persistent fevers. Plan: c/w empiric IV abx, started PO nystatin. 1- Fevers, persistent -most likely 2/2 to malignancy -Tylenol prn -ID on board, Recs appreciated -c/w Vancomycin and Meropenem IV (prophylaxis gram positive and gram negative microorganisms) -blood culture NGTD -urine culture negative -ECHO: pending 2- S4 lymphoma - s/p chemo cycle #1 05/20/17: Adriamycin/Bleomacyn/Vinblastine/Decarbazine - Hematology/Onc on board, Recs appreciated - Uric acid 3.9(wnl) 3- oral thrush -c/w PO nystatin -magic mouth wash 4- Tachycardia - continues cardiac rehabilitation program director - Oxygen via NC started 2 LPM and titrate as needed to maintain oxygen saturation >94 % - c/w metoprolol succ 25 mg PO daily - NS 50cc/hr 5- Edema -may be 2/2 NS MIVF, but rate is 50cc/hr -start lasix 40mg IV daily 6- Pancytopenia -most likely 2/2 malignancy -transfuse pRBC if Hgb <8, FFPE if plt<10 - s/p Granix 05/22 7- Hyponatremia, improving - Restrict oral fluids - NS 50cc/hr 8- Elevated LFTs/bilirubin with liver mets - liver US wnl 9- HIV/AIDS - lymphocyte panel on 05/17/17 - CD4 count <20, CD4 6% - C/W current HIV treatment (pt owns medications, started Biktarvy once chemo started) - per ID stopped azithro 1x weekly (last dose 05/18/17) - c/w Mepron (atovaquone) 1500 mg PO daily (PCP prophylaxis) 10- DVT prophylaxis -no pharmacological agents 2/2 thrombocytopenia -SCDs 11- Code -Full, confirmed with pt 05/22/17
[2017-05-23] MEDS: Metoprolol Succinate 25 mg XL Tab PO SCH (08:51)
[2017-05-23] MEDS: Nystatin 100,000 Units/ml Oral Susp 5 ml UD PO SCH ×4 (08:51→22:36)
[2017-05-23] MEDS: Atovaquone 750 mg/5 ml Susp UD PO SCH (08:53)
[2017-05-23] MEDS: BIKTARVY PO SCH (09:10)
[2017-05-23] MEDS: Lidocaine 5% Patch TD SCH (12:46)
--- NOTE | 2017-05-23 14:33 | CP.PCM.PN ---
Subjective - Date & Time of Evaluation Date of Evaluation: 05/23/17 Time of Evaluation: 14:32 - Subjective Subjective: ID Note- pt. seen and examined today. pt. jaundiced today, lethargic. c/o abdominal distention and pain and more dyspneic today. fevers are lower but tachycardic. weaker. denies any diarrhea . no nausea . eats well. Objective - Vital Signs/Intake and Output Vital Signs (last 24 hours): Temp Pulse Resp BP Pulse Ox 99.6 F 144 H 20 125/63 95 05/23/17 13:00 05/23/17 13:00 05/23/17 13:00 05/23/17 13:00 05/23/17 13:00 - Medications Medications: Current Medications Acetaminophen (Tylenol 325mg Tab) 650 mg PO Q4 PRN PRN Reason: Pain, Mild (1-3) Last Admin: 05/21/17 05:11 Dose: 650 mg Acetaminophen (Tylenol 325mg Tab) 650 mg PO Q4 PRN PRN Reason: Fever >100.4 F Last Admin: 05/23/17 03:55 Dose: 650 mg Atovaquone (Mepron) 1,500 mg PO DAILY [facility] PRN Reason: Protocol Last Admin: 05/23/17 08:53 Dose: 1,500 mg Furosemide (Lasix) 40 mg IVP DAILY [facility] Furosemide (Lasix) 40 mg IVP ONCE ONE Stop: 05/23/17 15:01 Heparin Sodium (Porcine) (Heparin) 5,000 units SC Q12 [facility] PRN Reason: Protocol Home Med (Patient's Own Medication) 1 unit PO DAILY [facility] Last Admin: 05/22/17 11:16 Dose: 1 unit Meropenem 1 gm/ Sodium (Chloride) 100 mls @ 100 mls/hr IVPB Q8 [facility] PRN Reason: Protocol Last Admin: 05/23/17 08:50 Dose: 100 mls/hr Vancomycin HCl 1 gm/ Sodium (Chloride) 250 mls @ 125 mls/hr IVPB DAILY [facility] Last Admin: 05/23/17 08:49 Dose: 125 mls/hr Lidocaine (Lidoderm) 1 ea TD DAILY [facility] Metoprolol Succinate (Toprol Xl) 25 mg PO DAILY [facility] Last Admin: 05/23/17 08:51 Dose: 25 mg Morphine Sulfate (Morphine) 2 mg IVP Q4 PRN PRN Reason: Pain, moderate (4-7) Nystatin (Nystatin Oral Susp) 5 ml PO QID [facility] Last Admin: 05/23/17 08:51 Dose: 5 ml Ondansetron HCl (Zofran Inj) 4 mg IVP Q6 PRN PRN Reason: Nausea/Vomiting Saliva Substitute (First Magic Mouthwash) 5 ml PO Q4 PRN PRN Reason: Sore Throat Last Admin: 05/22/17 11:15 Dose: 5 ml - Labs Labs: - Additional Findings Additional findings: - Constitutional Appears: Chronically Ill but is now jaundiced and more weak - Head Exam Head Exam: ATRAUMATIC - Eye Exam Eye Exam: EOMI, PERRL - Respiratory Exam Respiratory Exam: slight tachypnea Additional comments: slightly decreased breath sounds at the bases no wheezing - Cardiovascular Exam Cardiovascular Exam: tachycardic , +S1, +S2 - GI/Abdominal Exam Additional comments: more distended not soft generalized tenderness , + bowel sounds no guarding No rebound - Extremities Exam Additional comments: 1+ LE edema B/L - Neurological Exam Neurological exam: Alert, Oriented x 3 Laboratory Results - last 72 hr 05/20/17 05/20/17 05/20/17 17:26 17:40 17:40 WBC 2.8 L RBC 3.88 L Hgb 10.1 L Hct 31.2 L MCV 80.5 MCH 25.9 L MCHC 32.2 L RDW 18.5 H Plt Count 64 L MPV 11.6 Neut % (Auto) 90.4 H Lymph % (Auto) 3.4 L [place] % (Auto) 6.0 Eos % (Auto) 0.0 Baso % (Auto) 0.2 Neut # (Auto) 2.6 Lymph # (Auto) 0.1 L [place] # (Auto) 0.2 Eos # (Auto) 0.0 Baso # (Auto) 0.0 Total Counted Neutrophils % (Manual) 84 H Band Neutrophils % 3 H Lymphocytes % (Manual) 6 L Reactive Lymphs % Monocytes % (Manual) 7 Eosinophils % (Manual) Basophils % (Manual) Metamyelocytes % Myelocytes % Promyelocytes % Blast Cells % Plasma Cell % (Manual) Nucleated RBC % Hypersegmented Polys Smudge Cells Toxic Granulation Dohle Bodies Jessica Rods Platelet Estimate Decreased L Plt Clumps, EDTA Large Platelets Giant Platelets Present RBC Morphology Polychromasia Slight Hypochromasia (manual) Moderate Poikilocytosis (manual Slight Basophilic Stippling Anisocytosis (manual) Slight Microcytosis (manual) Moderate Macrocytosis (manual) Spherocytes Sickle Cells Target Cells Tear Drop Cells Ovalocytes Slight Stomatocytes Helmet Cells [place] Bodies [place] Cells Acanthocytes (Spur) Slight Rouleaux Schistocytes pO2 61 H VBG pH 7.49 H VBG pCO2 24 L VBG HCO3 21.9 VBG Total CO2 19.0 L VBG O2 Sat (Calc) 98.9 H VBG Base Excess -3.9 L VBG Potassium 4.6 Sodium 126.0 L 130 L Chloride 102.0 100 Glucose 171 H Lactate 3.2 H FiO2 21.0 Potassium 4.4 Carbon Dioxide 14 L Anion Gap 20 BUN 19 Creatinine 0.7 L Est GFR ( Amer) > 60 Est GFR (Non-Af Amer) > 60 Random Glucose 157 H Uric Acid Calcium 7.7 L Total Bilirubin 6.3 H AST 74 H D ALT 53 Alkaline Phosphatase 534 H Lactate Dehydrogenase Total Protein 5.7 L Albumin 2.4 L Globulin 3.3 Albumin/Globulin Ratio 0.7 L Venous Blood Potassium 4.6 Urine Color Urine Clarity Urine pH Ur Specific [place] Urine Protein Urine Glucose (UA) Urine Ketones Urine Blood Urine Nitrate Urine Bilirubin Urine Urobilinogen Ur Leukocyte Esterase Urine RBC (Auto) Urine Microscopic WBC Ur Squamous Epith Cells Urine Bacteria Vancomycin Trough 05/21/17 05/21/17 05/21/17 08:46 08:46 10:30 WBC 2.9 L RBC 3.34 L Hgb 8.8 L Hct 26.8 L MCV 80.1 MCH 26.3 L MCHC 32.8 L RDW 18.5 H Plt Count 27 L* MPV 8.6 Neut % (Auto) 92.2 H Lymph % (Auto) 2.6 L [place] % (Auto) 5.0 Eos % (Auto) 0.1 Baso % (Auto) 0.1 Neut # (Auto) 2.6 Lymph # (Auto) 0.1 L [place] # (Auto) 0.1 Eos # (Auto) 0.0 Baso # (Auto) 0.0 Total Counted Neutrophils % (Manual) Band Neutrophils % Lymphocytes % (Manual) Reactive Lymphs % Monocytes % (Manual) Eosinophils % (Manual) Basophils % (Manual) Metamyelocytes % Myelocytes % Promyelocytes % Blast Cells % Plasma Cell % (Manual) Nucleated RBC % Hypersegmented Polys Smudge Cells Toxic Granulation [place]ohle Bodies Jessica Rods Platelet Estimate Plt Clumps, EDTA Large Platelets Giant Platelets RBC Morphology Polychromasia Hypochromasia (manual) Poikilocytosis (manual Basophilic Stippling Anisocytosis (manual) Microcytosis (manual) Macrocytosis (manual) Spherocytes Sickle Cells Target Cells Tear Drop Cells Ovalocytes Stomatocytes Helmet Cells [place] Bodies [place] Cells Acanthocytes (Spur) Rouleaux Schistocytes pO2 VBG pH VBG pCO2 VBG HCO3 VBG Total CO2 VBG O2 Sat (Calc) VBG Base Excess VBG Potassium Sodium 132 Chloride 102 Glucose Lactate FiO2 Potassium 4.4 Carbon Dioxide 18 L Anion Gap 16 BUN 24 H Creatinine 0.7 L Est GFR ( Amer) > 60 Est GFR (Non-Af Amer) > 60 Random Glucose 109 Uric Acid Calcium 7.5 L Total Bilirubin AST ALT Alkaline Phosphatase Lactate Dehydrogenase Total Protein Albumin Globulin Albumin/Globulin Ratio Venous Blood Potassium Urine Color [place] Urine Clarity Cloudy Urine pH 6.0 Ur Specific [place] 1.024 Urine Protein 30 Urine Glucose (UA) Neg Urine Ketones Negative Urine Blood Negative Urine Nitrate Negative Urine Bilirubin Small Urine Urobilinogen 0.2-1.0 Ur Leukocyte Esterase Neg Urine RBC (Auto) 2 Urine Microscopic WBC 4 Ur Squamous Epith Cells < 1 Urine Bacteria Rare Vancomycin Trough 05/22/17 05/22/17 05/22/17 06:45 06:45 06:45 WBC 3.5 L RBC 3.13 L Hgb 8.4 L Hct 24.9 L MCV 79.5 L MCH 26.8 L MCHC 33.7 RDW 18.8 H Plt Count 17 L* D MPV 7.2 Neut % (Auto) 96.8 H Lymph % (Auto) 1.8 L [place] % (Auto) 1.3 Eos % (Auto) 0.0 Baso % (Auto) 0.1 Neut # (Auto) 3.4 Lymph # (Auto) 0.1 L [place] # (Auto) 0.0 Eos # (Auto) 0.0 Baso # (Auto) 0.0 Total Counted Cancelled Neutrophils % (Manual) Cancelled Band Neutrophils % Cancelled Lymphocytes % (Manual) Cancelled Reactive Lymphs % Cancelled Monocytes % (Manual) Cancelled Eosinophils % (Manual) Cancelled Basophils % (Manual) Cancelled Metamyelocytes % Cancelled Myelocytes % Cancelled Promyelocytes % Cancelled Blast Cells % Cancelled Plasma Cell % (Manual) Cancelled Nucleated RBC % Cancelled Hypersegmented Polys Cancelled Smudge Cells Cancelled Toxic Granulation Cancelled Dohle Bodies Cancelled Jessica Rods Cancelled Platelet Estimate Cancelled Plt Clumps, EDTA Cancelled Large Platelets Cancelled Giant Platelets Cancelled RBC Morphology Cancelled Polychromasia Cancelled Hypochromasia (manual) Cancelled Poikilocytosis (manual Cancelled Basophilic Stippling Cancelled Anisocytosis (manual) Cancelled Microcytosis (manual) Cancelled Macrocytosis (manual) Cancelled Spherocytes Cancelled Sickle Cells Cancelled Target Cells Cancelled Tear Drop Cells Cancelled Ovalocytes Cancelled Stomatocytes Cancelled Helmet Cells Cancelled [place] Bodies Cancelled [place] Cells Cancelled Acanthocytes (Spur) Cancelled Rouleaux Cancelled Schistocytes Cancelled pO2 VBG pH VBG pCO2 VBG HCO3 VBG Total CO2 VBG O2 Sat (Calc) VBG Base Excess VBG Potassium Sodium 131 L Chloride 100 Glucose Lactate FiO2 Potassium 4.5 Carbon Dioxide 19 L Anion Gap 17 BUN 38 H Creatinine 0.8 Est GFR ( Amer) > 60 Est GFR (Non-Af Amer) > 60 Random Glucose 111 H Uric Acid Calcium 7.9 L Total Bilirubin 9.3 H AST 89 H D ALT 61 Alkaline Phosphatase 470 H Lactate Dehydrogenase Total Protein 4.8 L Albumin 1.9 L Globulin 2.9 Albumin/Globulin Ratio 0.7 L Venous Blood Potassium Urine Color Urine Clarity Urine pH Ur Specific [place] Urine Protein Urine Glucose (UA) Urine Ketones Urine Blood Urine Nitrate Urine Bilirubin Urine Urobilinogen Ur Leukocyte Esterase Urine RBC (Auto) Urine Microscopic WBC Ur Squamous Epith Cells Urine Bacteria Vancomycin Trough < 5.0 L 05/23/17 05/23/17 05/23/17 04:20 04:20 14:12 WBC 3.6 L RBC 3.35 L Hgb 9.0 L Hct 26.6 L MCV 79.5 L MCH 26.7 L MCHC 33.6 RDW 19.1 H Plt Count 21 L* MPV 10.0 Neut % (Auto) 95.8 H Lymph % (Auto) 1.9 L [place] % (Auto) 1.0 Eos % (Auto) 0.9 Baso % (Auto) 0.4 Neut # (Auto) 3.4 Lymph # (Auto) 0.1 L [place] # (Auto) 0.0 Eos # (Auto) 0.0 Baso # (Auto) 0.0 Total Counted Neutrophils % (Manual) 93 H Band Neutrophils % 4 H Lymphocytes % (Manual) 2 L Reactive Lymphs % Monocytes % (Manual) 1 Eosinophils % (Manual) Basophils % (Manual) Metamyelocytes % Myelocytes % Promyelocytes % Blast Cells % Plasma Cell % (Manual) Nucleated RBC % Hypersegmented Polys Smudge Cells Toxic Granulation [place]ohle Bodies Jessica Rods Platelet Estimate Markedly decreased L Plt Clumps, EDTA Large Platelets Present Giant Platelets RBC Morphology Polychromasia Hypochromasia (manual) Poikilocytosis (manual Basophilic Stippling Anisocytosis (manual) Slight Microcytosis (manual) Macrocytosis (manual) Spherocytes Sickle Cells Target Cells Tear Drop Cells Ovalocytes Slight Stomatocytes Helmet Cells [place] Bodies [place] Cells Acanthocytes (Spur) Slight Rouleaux Schistocytes Slight pO2 VBG pH VBG pCO2 VBG HCO3 VBG Total CO2 VBG O2 Sat (Calc) VBG Base Excess VBG Potassium Sodium 133 Chloride 103 Glucose Lactate FiO2 Potassium 4.7 Carbon Dioxide 18 L Anion Gap 17 BUN 44 H Creatinine 0.9 Est GFR ( Amer) > 60 Est GFR (Non-Af Amer) > 60 Random Glucose 105 Uric Acid 3.9 Calcium 7.8 L Total Bilirubin 12.0 H AST 78 H ALT 83 H D Alkaline Phosphatase 747 H D Lactate Dehydrogenase 429 Total Protein 4.9 L Albumin 1.9 L Globulin 3.0 Albumin/Globulin Ratio 0.6 L Venous Blood Potassium Urine Color Urine Clarity Urine pH Ur Specific [place] Urine Protein Urine Glucose (UA) Urine Ketones Urine Blood Urine Nitrate Urine Bilirubin Urine Urobilinogen Ur Leukocyte Esterase Urine RBC (Auto) Urine Microscopic WBC Ur Squamous Epith Cells Urine Bacteria Vancomycin Trough Microbiology 05/20/17 17:32 Blood-Venous Blood Culture - Preliminary NO GROWTH AFTER 48 HOURS 05/21/17 10:30 Urine,Random Urine Culture - Final No Growth (<1,000 CFU/ML) Accession No. : [id number] Patient Name / ID : CHENTE ESCOBAR / [id number] Exam Date : 05/23/2017 14:45:30 ( Approved ) Study Comment : Sex / Age : M / 37Y Creator : Randy Ambriz MD Dictator : Randy Ambriz MD Deadener : Business Development Officer : Randy Ambriz MD Approver2 : Report Date : 05/23/2017 14:58:34 My Comment : HISTORY: Shortness of breath, tachypnea and fever. COMPARISON: 05/20/2017 FINDINGS: LUNGS: Lower lobe infiltrates/atelectasis. Similar findings identified on the most recent portable chest x-ray. These are accentuated by poor inspiratory effort and portable technique PLEURA: No significant pleural effusion identified, no pneumothorax apparent. CARDIOVASCULAR: No radiographic findings to suggest acute or significant cardiovascular disease. Venous access catheter in stable, satisfactory position. OSSEOUS STRUCTURES: No significant abnormalities. VISUALIZED UPPER ABDOMEN: Normal. OTHER FINDINGS: None. IMPRESSION: Lower lobe infiltrates/atelectasis. No significant interval change compared to the prior examination(s). i Accession No. : [id number] Patient Name / ID : CHENTE ESCOBAR / [id number] Exam Date : 05/22/2017 10:11:33 ( Approved ) Study Comment : Sex / Age : M / 37Y Creator : Reid Wills MD Dictator : Reid Wills MD Deadener : Business Development Officer : Reid Wills MD Approver2 : Report Date : 05/22/2017 12:58:56 My Comment : EXAM: Venous Doppler complete bilateral INDICATIONS: Evaluate for deep venous thrombosis. TECHNIQUE: Duplex venous evaluation of the both lower extremities was performed utilizing graded compression, color Doppler and spectral Doppler interrogation. COMPARISON: None available FINDINGS: There is normal morphology, compressibility, Doppler flow, and augmentation of both common femoral, femoral, and popliteal veins. Visualized portions of the posterior tibial veins are unremarkable. IMPRESSION: No evidence of deep venous thrombosis in the bilateral femoropopliteal systems. Assessment and Plan (1) HIV disease Status: Acute (2) Hodgkin's lymphoma Status: Acute (3) Anasarca Status: Acute (4) Fever Status: Acute - Assessment and Plan (Free Text) Assessment: A/P- 37 year old male with HIV f/u at [facility] on [address] with UD VL but CD4-17 , newly diagnosed stage $ Hodgkin;s lymphoma s/p first chemo yesterday admitted with weakness. fevers trending down pt, however tachycardic, jaundiced and weaker anasarca all blood and urine cx negative pt. kept on empiric broad spectrum IV abx for now since his immunesuppressed and likely will become neutropenic post chemo. TTE negative for vegetations as per report. plan- continue with empiric IV vancomycin day #7 since pt. is immunocompromised keep vanco trough <15. continue with empiric meropnem day #5 to cover for nosocomial pathogens since pt. was recently hospitalized and is immune suppressed pending further results. advise nystatin mouth wash PRN. HIV meds and meds to prevent opportunistic infection as per his HIV doctor at [facility], [place]. advise to check abd US /xray continue with empiric Neutropenic precautions. spoke with DR. Ramírez Morelos and advise pt. may need to be transferred to ICU for closer monitoring since his condition is tenuous All above d/w patient at length and he verbalizes full understanding of all above and agrees with above plan of care.
--- NOTE | 2017-05-23 15:00 | RAD ---
HISTORY: Shortness of breath, tachypnea and fever. COMPARISON: 05/20/2017 FINDINGS: LUNGS: Lower lobe infiltrates/atelectasis. Similar findings identified on the most recent portable chest x-ray. These are accentuated by poor inspiratory effort and portable technique PLEURA: No significant pleural effusion identified, no pneumothorax apparent. CARDIOVASCULAR: No radiographic findings to suggest acute or significant cardiovascular disease. Venous access catheter in stable, satisfactory position. OSSEOUS STRUCTURES: No significant abnormalities. VISUALIZED UPPER ABDOMEN: Normal. OTHER FINDINGS: None. IMPRESSION: Lower lobe infiltrates/atelectasis. No significant interval change compared to the prior examination(s).
[2017-05-23 19:26] LABS: URINE BACTERIA RARE (<OCC); URINE BILIRUBIN MODERATE (NEGATIVE); URINE BLOOD SMALL (NEGATIVE); URINE CLARITY CLOUDY (Clear); URINE COLOR AMBER (YELLOW); URINE GLUCOSE (UA) NEG (Normal); URINE LEUKOCYTE ESTERASE NEG Leu/uL (Negative); URINE PROTEIN NEGATIVE (NEGATIVE)
--- NOTE | 2017-05-23 23:33 | CP.PCM.PN ---
Subjective - Date & Time of Evaluation Date of Evaluation: 05/23/17 Time of Evaluation: 20:35 - Subjective Subjective: Abdominal and testicular swelling. Objective - Vital Signs/Intake and Output Vital Signs (last 24 hours): Temp Pulse Resp BP Pulse Ox 102.7 F H 117 H 20 96/62 L 97 05/23/17 23:22 05/23/17 19:40 05/23/17 19:40 05/23/17 19:40 05/23/17 19:40 - Medications Medications: Current Medications Acetaminophen (Tylenol 325mg Tab) 650 mg PO Q4 PRN PRN Reason: Pain, Mild (1-3) Last Admin: 05/23/17 23:22 Dose: 650 mg Acetaminophen (Tylenol 325mg Tab) 650 mg PO Q4 PRN PRN Reason: Fever >100.4 F Last Admin: 05/23/17 16:09 Dose: 650 mg Atovaquone (Mepron) 1,500 mg PO DAILY [facility] PRN Reason: Protocol Last Admin: 05/23/17 08:53 Dose: 1,500 mg Furosemide (Lasix) 40 mg IVP DAILY [facility] Heparin Sodium (Porcine) (Heparin) 5,000 units SC Q12 [facility] PRN Reason: Protocol Home Med (Patient's Own Medication) 1 unit PO DAILY [facility] Last Admin: 05/23/17 09:10 Dose: 1 unit Meropenem 1 gm/ Sodium (Chloride) 100 mls @ 100 mls/hr IVPB Q8 [facility] PRN Reason: Protocol Last Admin: 05/23/17 16:08 Dose: 100 mls/hr Vancomycin HCl 1 gm/ Sodium (Chloride) 250 mls @ 125 mls/hr IVPB DAILY [facility] Last Admin: 05/23/17 08:49 Dose: 125 mls/hr Lidocaine (Lidoderm) 1 ea TD DAILY [facility] Last Admin: 05/23/17 12:46 Dose: 1 ea Metoprolol Succinate (Toprol Xl) 25 mg PO DAILY [facility] Last Admin: 05/23/17 08:51 Dose: 25 mg Metoprolol Succinate (Toprol Xl) 12.5 mg PO DAILY [facility] Stop: 05/24/17 17:38 Morphine Sulfate (Morphine) 2 mg IVP Q4 PRN PRN Reason: Pain, moderate (4-7) Last Admin: 05/23/17 14:45 Dose: 2 mg Nystatin (Nystatin Oral Susp) 5 ml PO QID [facility] Last Admin: 05/23/17 22:36 Dose: 5 ml Ondansetron HCl (Zofran Inj) 4 mg IVP Q6 PRN PRN Reason: Nausea/Vomiting Saliva Substitute (First Magic Mouthwash) 5 ml PO Q4 PRN PRN Reason: Sore Throat Last Admin: 05/22/17 11:15 Dose: 5 ml - Labs Labs: 05/23/17 04:20 05/23/17 04:20 - Head Exam Head Exam: ATRAUMATIC - Eye Exam Eye Exam: Normal appearance, Scleral icterus - ENT Exam ENT Exam: Mucous Membranes Dry - Respiratory Exam Respiratory Exam: NORMAL BREATHING PATTERN - Cardiovascular Exam Cardiovascular Exam: +S1, +S2 - GI/Abdominal Exam GI & Abdominal Exam: Normal Bowel Sounds - Extremities Exam Extremities Exam: Pedal Edema Assessment and Plan (1) Pancytopenia Assessment & Plan: HIV/AIDS, lymphoma recent chemotherapy s/p Granix goal plt > 10,000 Status: Acute (2) Hodgkin's lymphoma Assessment & Plan: stage IVb s/p ABVD chemotherapy Status: Acute
[2017-05-24] MEDS: Meropenem 1 GM in Sodium Chloride 0.9% 100 ML IVPB SCH ×3 (01:56→16:10)
[2017-05-24 05:51] LABS: BASO % 0.1 % (0.0-2.0); EOS % 0.9 % (0.0-4.0); HEMOGLOBIN 9.1 g/dL (12.0-18.0); LYMPH # 0.1 K/uL (1.0-4.3); LYMPH % 4.9 % (20.0-40.0); MEAN CELL VOLUME 80.6 fl (80.0-94.0); MEAN CORPUSCULAR HEMOGLOBIN 26.1 pg (27.0-31.0); MEAN CORPUSCULAR HGB CONC 32.4 g/dL (33.0-37.0); MEAN PLATELET VOLUME 8.5 fl (7.2-11.7); NEUT # 2.2 K/uL (1.8-7.0); NEUT % 93.1 % (50.0-75.0); RBC 3.47 Mil/uL (4.40-5.90); RED CELL DISTRIBUTION WIDTH 19.3 % (11.5-14.5); WHITE BLOOD COUNT 2.3 K/uL (4.8-10.8)
[2017-05-24 05:57] LABS: ALB/GLOB RATIO 0.6 (1.0-2.1); ALBUMIN 1.9 g/dL (3.5-5.0); ALT/SGPT 74 U/L (21-72); AST/SGOT 44 U/L (17-59); BILIRUBIN,DIRECT 12.8 mg/ml (0.0-0.4); BLOOD UREA NITROGEN 49 mg/dl (9-20); CALCIUM 7.7 mg/dL (8.4-10.2); GFR AFRICAN-AMERICAN > 60; GFR NON-AFRICAN AMERICAN > 60
[2017-05-24 06:02] LABS: PLATELET COUNT 20 K/uL (130-400)
--- NOTE | 2017-05-24 07:33 | CARD ---
APPROVED REPORT EKG Measurement Heart [id number] <Conclusion> Sinus tachycardia Possible Left atrial enlargement Borderline ECG
--- NOTE | 2017-05-24 08:38 | CP.PCM.PN ---
Subjective - Date & Time of Evaluation Date of Evaluation: 05/24/17 Time of Evaluation: 08:35 - Subjective Subjective: Patient seen and examined at bedside, no acute overnight event. Patient reports feeling better today denies sob, breathing on RA. b/l edemetous legs less than yesterday. Afebrile now. Ambulating. c/ on neutropenic precautions. Objective - Vital Signs/Intake and Output Vital Signs (last 24 hours): Temp Pulse Resp BP Pulse Ox 98.6 F 117 H 18 100/61 97 05/24/17 05:07 05/24/17 05:07 05/24/17 05:07 05/24/17 05:07 05/24/17 05:07 - Medications Medications: Current Medications Acetaminophen (Tylenol 325mg Tab) 650 mg PO Q4 PRN PRN Reason: Pain, Mild (1-3) Last Admin: 05/21/17 05:11 Dose: 650 mg Acetaminophen (Tylenol 325mg Tab) 650 mg PO Q4 PRN PRN Reason: Fever >100.4 F Last Admin: 05/23/17 23:22 Dose: 650 mg Atovaquone (Mepron) 1,500 mg PO DAILY [facility] PRN Reason: Protocol Last Admin: 05/23/17 08:53 Dose: 1,500 mg Furosemide (Lasix) 40 mg IVP DAILY [facility] Heparin Sodium (Porcine) (Heparin) 5,000 units SC Q12 [facility] PRN Reason: Protocol Home Med (Patient's Own Medication) 1 unit PO DAILY [facility] Last Admin: 05/23/17 09:10 Dose: 1 unit Meropenem 1 gm/ Sodium (Chloride) 100 mls @ 100 mls/hr IVPB Q8 [facility] PRN Reason: Protocol Last Admin: 05/24/17 01:56 Dose: 100 mls/hr Vancomycin HCl 1 gm/ Sodium (Chloride) 250 mls @ 125 mls/hr IVPB DAILY [facility] Last Admin: 05/23/17 08:49 Dose: 125 mls/hr Lidocaine (Lidoderm) 1 ea TD DAILY [facility] Last Admin: 05/23/17 12:46 Dose: 1 ea Metoprolol Succinate (Toprol Xl) 25 mg PO DAILY [facility] Last Admin: 05/23/17 08:51 Dose: 25 mg Metoprolol Succinate (Toprol Xl) 12.5 mg PO DAILY [facility] Stop: 05/24/17 17:38 Morphine Sulfate (Morphine) 2 mg IVP Q4 PRN PRN Reason: Pain, moderate (4-7) Last Admin: 05/23/17 14:45 Dose: 2 mg Nystatin (Nystatin Oral Susp) 5 ml PO QID [facility] Last Admin: 05/23/17 22:36 Dose: 5 ml Ondansetron HCl (Zofran Inj) 4 mg IVP Q6 PRN PRN Reason: Nausea/Vomiting Saliva Substitute (First Magic Mouthwash) 5 ml PO Q4 PRN PRN Reason: Sore Throat Last Admin: 05/22/17 11:15 Dose: 5 ml - Labs Labs: 05/24/17 04:25 05/24/17 04:25 - Constitutional Appears: No Acute Distress - Head Exam Head Exam: NORMAL INSPECTION - Eye Exam Eye Exam: EOMI, PERRL, Scleral icterus - ENT Exam ENT Exam: Mucous Membranes Dry - Respiratory Exam Respiratory Exam: Clear to Ausculation Bilateral, NORMAL BREATHING PATTERN. absent: Accessory Muscle Use - Cardiovascular Exam Cardiovascular Exam: Tachycardia, REGULAR RHYTHM, +S1, +S2. absent: Murmur - GI/Abdominal Exam GI & Abdominal Exam: Distended, Tenderness, Normal Bowel Sounds - Extremities Exam Extremities Exam: absent: Calf Tenderness Additional comments: b/l leg swelling from foot up to upper 1/3 of leg. - Neurological Exam Neurological Exam: Alert, Awake, Oriented x3 - Skin Skin Exam: Warm Additional comments: Jaundiced. Assessment and Plan - Assessment and Plan (Free Text) Assessment: 37yo M with PMHx of HIV/AIDS and recently diagnosed Hodgkins Lymphoma stage 4 s/ p chemo cycle #1 05/20/17 admitted for persistent fevers. Plan: c/w empiric IV abx, started PO nystatin. 1- Fevers, persistent -most likely 2/2 to malignancy -Tylenol prn -ID on board, Recs appreciated -c/w Vancomycin and Meropenem IV day 8 (prophylaxis gram positive and gram negative microorganisms) -blood culture NGTD -urine culture negative - CXR 05/23: no active lung disease, no pleural effusions noted. 2- S4 lymphoma - s/p chemo cycle #1 05/20/17: Adriamycin/Bleomacyn/Vinblastine/Decarbazine - Hematology/Onc on board, Recs appreciated - Uric acid 3.9(wnl) 3- oral thrush -c/w PO nystatin -magic mouth wash 4- Tachycardia - continues case monitor - Oxygen via NC started 2 LPM and titrate as needed to maintain oxygen saturation >94 % - c/w metoprolol succ 25 mg PO daily - EKG: sinus tachycardia, RA enlargement. 5- Edema - d/c IV fluids -c/w lasix 40mg IV daily 6- Pancytopenia -most likely 2/2 malignancy -transfuse pRBC if Hgb <8, FFPE if plt<10 - s/p Granix 05/22 7- Hyponatremia, resolved - Na 133 8- Elevated LFTs/bilirubin with liver mets - liver US wnl - TB 14.0 - GI Dr Austin consult placed, recs appreciated. 9- HIV/AIDS - lymphocyte panel on 05/17/17 - CD4 count <20, CD4 6% - C/W current HIV treatment (pt owns medications, started Biktarvy once chemo started) - per ID stopped azithro 1x weekly (last dose 05/18/17) - c/w Mepron (atovaquone) 1500 mg PO daily (PCP prophylaxis) 10- DVT prophylaxis -no pharmacological agents 2/2 thrombocytopenia -SCDs 11- Code -Full, confirmed with pt 05/22/17
[2017-05-24] MEDS: Lidocaine 5% Patch TD SCH (08:46)
[2017-05-24] MEDS: Nystatin 100,000 Units/ml Oral Susp 5 ml UD PO SCH ×4 (08:48→21:57)
[2017-05-24] MEDS: BIKTARVY PO SCH (08:48)
[2017-05-24] MEDS: Metoprolol Succinate 25 mg XL Tab PO SCH (08:49)
[2017-05-24] MEDS: Atovaquone 750 mg/5 ml Susp UD PO SCH (08:49)
[2017-05-24 11:22] LABS: BANDS 2 % (0-2); LYMPHOCYTE 3 % (20-50); MONOCYTE 4 % (0-10); NEUTROPHIL 91 % (42-75); PLATELET ESTIMATE DECREASED (NORMAL); TOTAL CELLS COUNTED 100
[2017-05-24 11:23] LABS: ANISOCYTOSIS SLIGHT; HYPOCHROMIC SLIGHT
[2017-05-24 11:24] LABS: LARGE PLATELETS PRESENT; OVALOCYTES SLIGHT; TEARDROP CELLS SLIGHT; TOXIC GRANULATION PRESENT
--- NOTE | 2017-05-24 11:55 | CP.PCM.CON ---
History of Present Illness - History of Present Illness History of Present Illness: Patient is a 37 years of age male was called to see him for abnormal kidney function. Patient has very complicated medical history related to diagnosis of HIV and also was diagnosed with lymphoma Hodgkin disease and he was receiving chemotherapy. Patient appeared to be debilitated and complaining golf clubs and swollen and leg swollen and scrotum swollen. Past medical history and the need that diagnosis of Hodgkin disease and HIV AIDS Review of Systems - Constitutional Constitutional: As Per HPI, Anorexia, Malaise, Weakness - EENT Eyes: absent: Exophthalmos - Cardiovascular Cardiovascular: Dyspnea, Edema. absent: Acrocyanosis - Respiratory Respiratory: Dyspnea. absent: Hemoptysis - Gastrointestinal Gastrointestinal: Abdominal Pain. absent: Coffee Ground Emesis, Vomiting - Genitourinary Genitourinary: Nocturia - Musculoskeletal Musculoskeletal: Muscle Weakness. absent: Back Pain - Integumentary Integumentary: As Per HPI - Neurological Neurological: Abnormal Gait, Weakness. absent: Confusion - Endocrine Endocrine: Fatigue - Hematologic/Lymphatic Hematologic: Easy Bleeding Past Patient History - Infectious Disease Hx of Infectious Diseases: None - Past Medical History & Family History Past Medical History?: Yes - Past Social History Smoking Status: Never Smoked - CARDIAC Hx Cardiac Disorders: No - PULMONARY Hx Respiratory Disorders: No - NEUROLOGICAL Hx Neurological Disorder: No - HEENT Hx HEENT Problems: No Hx Blind: No - RENAL Hx Chronic Kidney Disease: No - ENDOCRINE/METABOLIC Hx Endocrine Disorders: No - HEMATOLOGICAL/ONCOLOGICAL Hx Blood Disorders: Yes Hx Blood Transfusions: Yes Hx Blood Transfusion Reaction: No Hx Cancer: Yes (hodgkin's lymphoma) Hx Human Immunodeficiency Virus (HIV): Yes (vl undetectable) - INTEGUMENTARY Hx Dermatological Problems: No - MUSCULOSKELETAL/RHEUMATOLOGICAL Hx Musculoskeletal Disorders: No Hx Falls: No - GASTROINTESTINAL Hx Gastrointestinal Disorders: No - GENITOURINARY/GYNECOLOGICAL Hx Genitourinary Disorders: No - PSYCHIATRIC Hx Psychophysiologic Disorder: No Hx Emotional Abuse: No Hx Physical Abuse: No Hx Substance Use: No - SURGICAL HISTORY Hx Surgeries: No Other/Comment: STOMACH BIOPSY - ANESTHESIA Hx Anesthesia: Yes Hx Anesthesia Reactions: No Hx Malignant Hyperthermia: No Meds Allergies/Adverse Reactions: Allergies Allergy/AdvReac Type Severity Reaction Status Date / Time ibuprofen [From Motrin] Allergy RASH Verified 05/20/17 17:08 - Medications Medications: Current Medications Acetaminophen (Tylenol 325mg Tab) 650 mg PO Q4 PRN PRN Reason: Pain, Mild (1-3) Last Admin: 05/24/17 10:49 Dose: 650 mg Acetaminophen (Tylenol 325mg Tab) 650 mg PO Q4 PRN PRN Reason: Fever >100.4 F Last Admin: 05/23/17 23:22 Dose: 650 mg Atovaquone (Mepron) 1,500 mg PO DAILY [facility] PRN Reason: Protocol Last Admin: 05/24/17 08:49 Dose: 1,500 mg Furosemide (Lasix) 40 mg IVP DAILY [facility] Last Admin: 05/24/17 08:47 Dose: 40 mg Home Med (Patient's Own Medication) 1 unit PO DAILY [facility] Last Admin: 05/24/17 08:48 Dose: 1 unit Meropenem 1 gm/ Sodium (Chloride) 100 mls @ 100 mls/hr IVPB Q8 [facility] PRN Reason: Protocol Last Admin: 05/24/17 09:09 Dose: 100 mls/hr Vancomycin HCl 1 gm/ Sodium (Chloride) 250 mls @ 125 mls/hr IVPB DAILY [facility] Last Admin: 05/24/17 08:50 Dose: 125 mls/hr Lidocaine (Lidoderm) 1 ea TD DAILY [facility] Last Admin: 05/24/17 08:46 Dose: 1 ea Metoprolol Succinate (Toprol Xl) 25 mg PO DAILY [facility] Last Admin: 05/24/17 08:49 Dose: 25 mg Metoprolol Succinate (Toprol Xl) 12.5 mg PO DAILY ONE Stop: 05/24/17 17:38 Morphine Sulfate (Morphine) 2 mg IVP Q4 PRN PRN Reason: Pain, moderate (4-7) Last Admin: 05/23/17 14:45 Dose: 2 mg Nystatin (Nystatin Oral Susp) 5 ml PO QID [facility] Last Admin: 05/24/17 08:48 Dose: 5 ml Ondansetron HCl (Zofran Inj) 4 mg IVP Q6 PRN PRN Reason: Nausea/Vomiting Saliva Substitute (First Magic Mouthwash) 5 ml PO Q4 PRN PRN Reason: Sore Throat Last Admin: 05/22/17 11:15 Dose: 5 ml Physical Exam - Constitutional Appears: No Acute Distress - ENT Exam ENT Exam: Mucous Membranes Moist - Neck Exam Neck exam: Positive for: Lymphadenopathy - Respiratory Exam Respiratory Exam: Rhonchi. absent: Chest Wall Tenderness - Cardiovascular Exam Cardiovascular Exam: absent: Gallop, JVD, Rubs - GI/Abdominal Exam GI & Abdominal Exam: Distended, Guarding, Normal Bowel Sounds Additional comments: Massive ascites - Back Exam Back exam: absent: CVA tenderness (L), CVA tenderness (R) - Neurological Exam Neurological exam: Alert - Skin Skin Exam: Pallor Additional comments: Jaundice all over Results - Vital Signs Recent Vital Signs: Last Vital Signs Temp 102.7 F H 05/24/17 10:49 Pulse 140 H 05/24/17 09:00 Resp 18 05/24/17 09:00 BP 106/55 L 05/24/17 09:00 Pulse Ox 96 05/24/17 09:00 - Labs Result Diagrams: 05/25/17 04:45 05/25/17 04:45 Labs: Laboratory Results - last 24 hr 05/23/17 05/23/17 05/24/17 14:12 19:00 04:25 WBC 2.3 L RBC 3.47 L Hgb 9.1 L Hct 28.0 L MCV 80.6 MCH 26.1 L MCHC 32.4 L RDW 19.3 H Plt Count 20 L* MPV 8.5 Neut % (Auto) 93.1 H Lymph % (Auto) 4.9 L [place] % (Auto) 1.0 Eos % (Auto) 0.9 Baso % (Auto) 0.1 Neut # (Auto) 2.2 Lymph # (Auto) 0.1 L [place] # (Auto) 0.0 Eos # (Auto) 0.0 Baso # (Auto) 0.0 Neutrophils % (Manual) 91 H Band Neutrophils % 2 Lymphocytes % (Manual) 3 L Monocytes % (Manual) 4 Toxic Granulation Present Platelet Estimate Decreased L Large Platelets Present Hypochromasia (manual) Slight Anisocytosis (manual) Slight Tear Drop Cells Slight Ovalocytes Slight Sodium Potassium Chloride Carbon Dioxide Anion Gap BUN Creatinine Est GFR ( Amer) Est GFR (Non-Af Amer) Random Glucose Calcium Total Bilirubin Direct Bilirubin AST ALT Alkaline Phosphatase Lactate Dehydrogenase 429 Total Protein Albumin Globulin Albumin/Globulin Ratio Urine Color [place] Urine Clarity Cloudy Urine pH 5.0 Ur Specific [place] 1.021 Urine Protein Negative Urine Glucose (UA) Neg Urine Ketones Negative Urine Blood Small Urine Nitrate Negative Urine Bilirubin Moderate Urine Urobilinogen 4.0 Ur Leukocyte Esterase Neg Urine RBC (Auto) 6 H Urine Microscopic WBC 4 Urine Bacteria Rare 05/24/17 04:25 WBC RBC Hgb Hct MCV MCH MCHC RDW Plt Count MPV Neut % (Auto) Lymph % (Auto) [place] % (Auto) Eos % (Auto) Baso % (Auto) Neut # (Auto) Lymph # (Auto) [place] # (Auto) Eos # (Auto) Baso # (Auto) Neutrophils % (Manual) Band Neutrophils % Lymphocytes % (Manual) Monocytes % (Manual) Toxic Granulation Platelet Estimate Large Platelets Hypochromasia (manual) Anisocytosis (manual) Tear Drop Cells Ovalocytes Sodium 132 Potassium 4.4 Chloride 101 Carbon Dioxide 18 L Anion Gap 17 BUN 49 H Creatinine 1.1 Est GFR ( Amer) > 60 Est GFR (Non-Af Amer) > 60 Random Glucose 104 Calcium 7.7 L Total Bilirubin 14.0 H Direct Bilirubin 12.8 H AST 44 ALT 74 H Alkaline Phosphatase 833 H Lactate Dehydrogenase Total Protein 5.0 L Albumin 1.9 L Globulin 3.1 Albumin/Globulin Ratio 0.6 L Urine Color Urine Clarity Urine pH Ur Specific [place] Urine Protein Urine Glucose (UA) Urine Ketones Urine Blood Urine Nitrate Urine Bilirubin Urine Urobilinogen Ur Leukocyte Esterase Urine RBC (Auto) Urine Microscopic WBC Urine Bacteria Assessment & Plan (1) HIV disease Status: Acute (2) Hodgkin's lymphoma Status: Acute (3) AIDS (acquired immunodeficiency syndrome), CD4 <=200 Status: Acute (4) Anasarca Assessment and Plan: Patient has anasarca was massive edema of the legs and abdomen. Patient has hyponatremia related to the massive ascites ,dilutional My recommendation patient needed a strict fluid restriction and discontinue IV. Continue Lasix intravenously Suggested [place] perhaps 25 mg twice a day Prognosis guarded Patient has significant debility Anemia high bilirubin Status: Acute
--- NOTE | 2017-05-24 12:26 | CP.PCM.CON ---
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 Patient was initially admitted in April for weightloss, fatigue, fevers and he underwent CT abdomen which revealed innumerable liver/spleen lesions with abnormal LNs noted in the peripancreatic region and retroperitoneum. Pt had a liver biopsy and diagnosed with Hodgkins lymphoma. GI was consulted for for elevated LFTs. At the time of evaluation pt was SOB, cachectic complaining of abdominal distention, lower extremity and scrotal edema. 12 system ROS performed and negative except where stated PMHx: See HPI PSHx: denies FHx: Father - CAD Social: Denies EtOH, tobacco or illicit drug use Endo: Denies prior endoscopic evaluations Past Patient History - Infectious Disease Hx of Infectious Diseases: None - Past Medical History & Family History Past Medical History?: Yes - Past Social History Smoking Status: Never Smoked - CARDIAC Hx Cardiac Disorders: No - PULMONARY Hx Respiratory Disorders: No - NEUROLOGICAL Hx Neurological Disorder: No - HEENT Hx HEENT Problems: No Hx Blind: No - RENAL Hx Chronic Kidney Disease: No - ENDOCRINE/METABOLIC Hx Endocrine Disorders: No - HEMATOLOGICAL/ONCOLOGICAL Hx Blood Disorders: Yes Hx Blood Transfusions: Yes Hx Blood Transfusion Reaction: No Hx Cancer: Yes (hodgkin's lymphoma) Hx Human Immunodeficiency Virus (HIV): Yes (vl undetectable) - INTEGUMENTARY Hx Dermatological Problems: No - MUSCULOSKELETAL/RHEUMATOLOGICAL Hx Musculoskeletal Disorders: No Hx Falls: No - GASTROINTESTINAL Hx Gastrointestinal Disorders: No - GENITOURINARY/GYNECOLOGICAL Hx Genitourinary Disorders: No - PSYCHIATRIC Hx Psychophysiologic Disorder: No Hx Emotional Abuse: No Hx Physical Abuse: No Hx Substance Use: No - SURGICAL HISTORY Hx Surgeries: No Other/Comment: STOMACH BIOPSY - ANESTHESIA Hx Anesthesia: Yes Hx Anesthesia Reactions: No Hx Malignant Hyperthermia: No Meds Allergies/Adverse Reactions: Allergies Allergy/AdvReac Type Severity Reaction Status Date / Time ibuprofen [From Motrin] Allergy RASH Verified 05/20/17 17:08 - Medications Medications: Current Medications Acetaminophen (Tylenol 325mg Tab) 650 mg PO Q4 PRN PRN Reason: Pain, Mild (1-3) Last Admin: 05/24/17 10:49 Dose: 650 mg Acetaminophen (Tylenol 325mg Tab) 650 mg PO Q4 PRN PRN Reason: Fever >100.4 F Last Admin: 05/23/17 23:22 Dose: 650 mg Atovaquone (Mepron) 1,500 mg PO DAILY [facility] PRN Reason: Protocol Last Admin: 05/24/17 08:49 Dose: 1,500 mg Furosemide (Lasix) 40 mg IVP DAILY [facility] Last Admin: 05/24/17 08:47 Dose: 40 mg Home Med (Patient's Own Medication) 1 unit PO DAILY [facility] Last Admin: 05/24/17 08:48 Dose: 1 unit Meropenem 1 gm/ Sodium (Chloride) 100 mls @ 100 mls/hr IVPB Q8 [facility] PRN Reason: Protocol Last Admin: 05/24/17 09:09 Dose: 100 mls/hr Vancomycin HCl 1 gm/ Sodium (Chloride) 250 mls @ 125 mls/hr IVPB [facility] Last Admin: 05/24/17 08:50 Dose: 125 mls/hr Lidocaine (Lidoderm) 1 ea TD [facility]ILY [facility] Last Admin: 05/24/17 08:46 Dose: 1 ea Metoprolol Succinate (Toprol Xl) 25 mg PO DAILY [facility] Last Admin: 05/24/17 08:49 Dose: 25 mg Metoprolol Succinate (Toprol Xl) 12.5 mg PO DAILY ONE Stop: 05/24/17 17:38 Morphine Sulfate (Morphine) 2 mg IVP Q4 PRN PRN Reason: Pain, moderate (4-7) Last Admin: 05/23/17 14:45 Dose: 2 mg Nystatin (Nystatin Oral Susp) 5 ml PO QID [facility] Last Admin: 05/24/17 08:48 Dose: 5 ml Ondansetron HCl (Zofran Inj) 4 mg IVP Q6 PRN PRN Reason: Nausea/Vomiting Saliva Substitute (First Magic Mouthwash) 5 ml PO Q4 PRN PRN Reason: Sore Throat Last Admin: 05/22/17 11:15 Dose: 5 ml Physical Exam - Constitutional Appears: In Acute Distress, Cachectic, Chronically Ill - Head Exam Head Exam: ATRAUMATIC, NORMAL INSPECTION, NORMOCEPHALIC - Eye Exam Eye Exam: EOMI, PERRL, Scleral icterus - ENT Exam ENT Exam: Mucous Membranes Moist - Neck Exam Neck exam: Positive for: Full Rom, Normal Inspection - Respiratory Exam Respiratory Exam: Rales, Respiratory Distress - Cardiovascular Exam Cardiovascular Exam: Tachycardia, +S1, +S2 - GI/Abdominal Exam GI & Abdominal Exam: Distended, Normal Bowel Sounds, Tenderness. absent: Guarding, Rebound, Rigid - Rectal Exam Rectal Exam: Deferred - Extremities Exam Extremities exam: Positive for: full ROM, pedal edema - Neurological Exam Neurological exam: Alert, Oriented x3 - Psychiatric Exam Psychiatric exam: Normal Affect, Normal Mood - Skin Skin Exam: Dry, Intact, Warm Additional comments: Jaundice Results - Vital Signs Recent Vital Signs: Last Vital Signs Temp 102.7 F H 05/24/17 10:49 Pulse 140 H 05/24/17 09:00 Resp 18 05/24/17 09:00 BP 106/55 L 05/24/17 09:00 Pulse Ox 96 05/24/17 09:00 - Labs Result Diagrams: 05/24/17 04:25 05/24/17 04:25 Labs: Laboratory Results - last 24 hr 05/23/17 05/23/17 05/24/17 14:12 19:00 04:25 WBC 2.3 L RBC 3.47 L Hgb 9.1 L Hct 28.0 L MCV 80.6 MCH 26.1 L MCHC 32.4 L RDW 19.3 H Plt Count 20 L* MPV 8.5 Neut % (Auto) 93.1 H Lymph % (Auto) 4.9 L [place] % (Auto) 1.0 Eos % (Auto) 0.9 Baso % (Auto) 0.1 Neut # (Auto) 2.2 Lymph # (Auto) 0.1 L [place] # (Auto) 0.0 Eos # (Auto) 0.0 Baso # (Auto) 0.0 Neutrophils % (Manual) 91 H Band Neutrophils % 2 Lymphocytes % (Manual) 3 L Monocytes % (Manual) 4 Toxic Granulation Present Platelet Estimate Decreased L Large Platelets Present Hypochromasia (manual) Slight Anisocytosis (manual) Slight Tear Drop Cells Slight Ovalocytes Slight Sodium Potassium Chloride Carbon Dioxide Anion Gap BUN Creatinine Est GFR ( Amer) Est GFR (Non-Af Amer) Random Glucose Calcium Total Bilirubin Direct Bilirubin AST ALT Alkaline Phosphatase Lactate Dehydrogenase 429 Total Protein Albumin Globulin Albumin/Globulin Ratio Urine Color [place] Urine Clarity Cloudy Urine pH 5.0 Ur Specific [place] 1.021 Urine Protein Negative Urine Glucose (UA) Neg Urine Ketones Negative Urine Blood Small Urine Nitrate Negative Urine Bilirubin Moderate Urine Urobilinogen 4.0 Ur Leukocyte Esterase Neg Urine RBC (Auto) 6 H Urine Microscopic WBC 4 Urine Bacteria Rare 05/24/17 04:25 WBC RBC Hgb Hct MCV MCH MCHC RDW Plt Count MPV Neut % (Auto) Lymph % (Auto) [place] % (Auto) Eos % (Auto) Baso % (Auto) Neut # (Auto) Lymph # (Auto) [place] # (Auto) Eos # (Auto) Baso # (Auto) Neutrophils % (Manual) Band Neutrophils % Lymphocytes % (Manual) Monocytes % (Manual) Toxic Granulation Platelet Estimate Large Platelets Hypochromasia (manual) Anisocytosis (manual) Tear Drop Cells Ovalocytes Sodium 132 Potassium 4.4 Chloride 101 Carbon Dioxide 18 L Anion Gap 17 BUN 49 H Creatinine 1.1 Est GFR ( Amer) > 60 Est GFR (Non-Af Amer) > 60 Random Glucose 104 Calcium 7.7 L Total Bilirubin 14.0 H Direct Bilirubin 12.8 H AST 44 ALT 74 H Alkaline Phosphatase 833 H Lactate Dehydrogenase Total Protein 5.0 L Albumin 1.9 L Globulin 3.1 Albumin/Globulin Ratio 0.6 L Urine Color Urine Clarity Urine pH Ur Specific [place] Urine Protein Urine Glucose (UA) Urine Ketones Urine Blood Urine Nitrate Urine Bilirubin Urine Urobilinogen Ur Leukocyte Esterase Urine RBC (Auto) Urine Microscopic WBC Urine Bacteria Assessment & Plan - Assessment and Plan (Free Text) Assessment: This is a 37yM presenting with fevers and tachycardia after chemotherapy. 1. AIDs 2. Hodgkins Lymphoma 3. Elevated LFTs, hyperbilirubinemia 4. Anasarca 5. Thrombocytopenia 6. 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
--- NOTE | 2017-05-24 12:42 | CP.CCUPN ---
CCU Subjective - Physician Review Events Since Last Encounter (Free Text): 05/24/17 18:12 The patient was Seen/interviewed and examined by me at the bedside during ICU round, Medical records reviewed and Management issues were discussed and formulated with the house staff. Events reviewed 35 Years old Male with HIV on HARRT (CD4 count<20 on 04/25/2017) Vitiligo and recently diagnosed stage 4 Hodgkins Lymphoma (on Tuesday05/09/17 per Hemo/Onc) Patient admitted on 05/20/17 for persistent fevers. Patient received chemo last week, first dose of chemo on 05/20 ICU consult called for recurrent fever (Blood and urine culture NGTD, CXR no infilterate), tachycardia Pt AAO x3. Alert, follows commands Denies any chest pain or Palpitations, but SOB on minimal exertion 05/24/17 18:50 CCU Objective - Vital Signs / Intake & Output Vital Signs (Last 4 hours): Vital Signs Temp Pulse Resp BP Pulse Ox 05/24/17 10:49 102.7 F H 05/24/17 09:00 140 H 18 106/55 L 96 05/24/17 08:49 140 H 106/55 L 05/24/17 08:47 106/55 L - Physical Exam Physical Exam Limitations: Positive for: Clinical Condition Head: Positive for: Atraumatic, Normocephalic Pupils: Positive for: PERRL. Negative for: Sluggish Extroacular Muscles: Positive for: EOMI Conjunctiva: Positive for: Normal, Icteric. Negative for: Injected Ears: Positive for: Normal Mouth: Positive for: Moist Mucous Membranes Pharnyx: Positive for: Normal Nose (External): Positive for: Atraumatic Neck: Positive for: Normal Range of Motion, Trachea Midline. Negative for: Meningeal Signs, MIDLINE TENDERNESS, Paraspinal Tenderness, JVD, Lymphadenopathy , Bruit, Other Respiratory/Chest: Positive for: Clear to Auscultation, Good Air Exchange, Decreased Breath Sounds, Tachypneic. Negative for: Respiratory Distress, Accessory Muscle Use, Wheezes, Rales, Retracting, Rhonchi Cardiovascular: Positive for: Regular Rate and Rhythm, Normal S1, S2, Peripheal Pulses Present, Tachycardic. Negative for: Murmurs Abdomen: Positive for: Normal Bowel Sounds. Negative for: Tenderness, Distention Back: Negative for: CVA Tenderness Upper Extremity: Positive for: Normal Inspection. Negative for: Cyanosis, Edema , Normal ROM Lower Extremity: Positive for: Normal Inspection, NORMAL PULSES. Negative for: Edema, CALF TENDERNESS Neurological: Positive for: GCS=15, CN II-XII Intact, Speech Normal, Motor Func Grossly Intact, Normal Sensory Function Psychiatric: Positive for: Alert, Oriented x 3 - Medications Active Medications: Active Medications Generic Name Dose Route Start Last Admin Trade Name Freq PRN Reason Stop Dose Admin Acetaminophen 650 mg 05/20/17 17:49 05/24/17 10:49 Tylenol 325mg Tab PO 650 mg Q4 PRN Administration Pain, Mild (1-3) Acetaminophen 650 mg 05/21/17 18:35 05/23/17 23:22 Tylenol 325mg Tab PO 650 mg Q4 PRN Administration Fever >100.4 F Atovaquone 1,500 mg 05/21/17 09:00 05/24/17 08:49 Mepron PO 1,500 mg DAILY DARRION Administration Protocol Furosemide 40 mg 05/24/17 09:00 05/24/17 08:47 Lasix IVP 40 mg DAILY DARRION Administration Home Med 1 unit 05/21/17 09:00 05/24/17 08:48 Patient's Own Medication PO 1 unit DAILY DARRION Administration Meropenem 1 gm/ Sodium 100 mls @ 100 mls/hr 05/21/17 01:00 05/24/17 09:09 Chloride IVPB 100 mls/hr Q8 DARRION Administration Protocol Vancomycin HCl 1 gm/ Sodium 250 mls @ 125 mls/hr 05/21/17 09:00 05/24/17 08: 50 Chloride IVPB 125 mls/hr DAILY DARRION Administration Lidocaine 1 ea 05/23/17 11:30 05/24/17 08:46 Lidoderm TD 1 ea DAILY DARRION Administration Metoprolol Succinate 25 mg 05/21/17 09:00 05/24/17 08:49 Toprol Xl PO 25 mg DAILY DARRION Administration Metoprolol Succinate 12.5 mg 05/24/17 17:37 Toprol Xl PO 05/24/17 17:38 DAILY ONE Morphine Sulfate 2 mg 05/23/17 13:17 05/23/17 14:45 Morphine IVP 2 mg Q4 PRN Administration Pain, moderate (4-7) Nystatin 5 ml 05/22/17 13:00 05/24/17 08:48 Nystatin Oral Susp PO 5 ml QID DARRION Administration Ondansetron HCl 4 mg 05/20/17 19:35 Zofran Inj IVP Q6 PRN Nausea/Vomiting Saliva Substitute 5 ml 05/21/17 15:34 05/22/17 11:15 First Magic Mouthwash PO 5 ml Q4 PRN Administration Sore Throat - Patient Studies Lab Studies: Microbiology Studies 05/20/17 17:32 Blood Culture - Preliminary Blood-Venous NO GROWTH AFTER 3 DAYS Lab Studies 05/24/17 05/24/17 05/23/17 Range/Units 04:25 04:25 19:00 WBC 2.3 L (4.8-10.8) K/uL RBC 3.47 L (4.40-5.90) Mil/uL Hgb 9.1 L (12.0-18.0) g/dL Hct 28.0 L (35.0-51.0) % MCV 80.6 (80.0-94.0) fl MCH 26.1 L (27.0-31.0) pg MCHC 32.4 L (33.0-37.0) g/dL RDW 19.3 H (11.5-14.5) % Plt Count 20 L* (130-400) K/uL MPV 8.5 (7.2-11.7) fl Neut % (Auto) 93.1 H (50.0-75.0) % Lymph % (Auto) 4.9 L (20.0-40.0) % [place] % (Auto) 1.0 (0.0-10.0) % Eos % (Auto) 0.9 (0.0-4.0) % Baso % (Auto) 0.1 (0.0-2.0) % Neut # (Auto) 2.2 (1.8-7.0) K/uL Lymph # (Auto) 0.1 L (1.0-4.3) K/uL Glad[place] # (Auto) 0.0 (0.0-0.8) K/uL Eos # (Auto) 0.0 (0.0-0.7) K/uL Baso # (Auto) 0.0 (0.0-0.2) K/uL Neutrophils % (Manual) 91 H (42-75) % Band Neutrophils % 2 (0-2) % Lymphocytes % (Manual) 3 L (20-50) % Monocytes % (Manual) 4 (0-10) % Toxic Granulation Present Platelet Estimate Decreased L (NORMAL) Large Platelets Present Hypochromasia (manual) Slight Anisocytosis (manual) Slight Tear Drop Cells Slight Ovalocytes Slight Sodium 132 (132-148) mmol/l Potassium 4.4 (3.6-5.0) MMOL/L Chloride 101 (98-107) mmol/L Carbon Dioxide 18 L (22-30) mmol/L Anion Gap 17 (10-20) BUN 49 H (9-20) mg/dl Creatinine 1.1 (0.8-1.5) mg/dl Est GFR ( Amer) > 60 Est GFR (Non-Af Amer) > 60 Random Glucose 104 (75-110) mg/dL Calcium 7.7 L (8.4-10.2) mg/dL Total Bilirubin 14.0 H (0.2-1.3) mg/dl Direct Bilirubin 12.8 H (0.0-0.4) mg/ml AST 44 (17-59) U/L ALT 74 H (21-72) U/L Alkaline Phosphatase 833 H (38-126) U/L Lactate Dehydrogenase (313-618) U/L Total Protein 5.0 L (6.3-8.2) G/DL Albumin 1.9 L (3.5-5.0) g/dL Globulin 3.1 (2.2-3.9) gm/dL Albumin/Globulin Ratio 0.6 L (1.0-2.1) Urine Color [place] (YELLOW) Urine Clarity Cloudy (Clear) Urine pH 5.0 (5.0-8.0) Ur Specific [place] 1.021 (1.003-1.030) Urine Protein Negative (NEGATIVE) mg/dL Urine Glucose (UA) Neg (Normal) mg/dL Urine Ketones Negative (NEGATIVE) mg/dL Urine Blood Small (NEGATIVE) Urine Nitrate Negative (NEGATIVE) Urine Bilirubin Moderate (NEGATIVE) Urine Urobilinogen 4.0 (0.2-1.0) mg/dL Ur Leukocyte Esterase Neg (Negative) Jovani/uL Urine RBC (Auto) 6 H (0-3) /hpf Urine Microscopic WBC 4 (0-5) /hpf Urine Bacteria Rare (<OCC) // Range/Units 14:12 WBC (4.8-10.8) K/uL RBC (4.40-5.90) Mil/uL Hgb (12.0-18.0) g/dL Hct (35.0-51.0) % MCV (80.0-94.0) fl MCH (27.0-31.0) pg MCHC (33.0-37.0) g/dL RDW (11.5-14.5) % Plt Count (130-400) K/uL MPV (7.2-11.7) fl Neut % (Auto) (50.0-75.0) % Lymph % (Auto) (20.0-40.0) % Gladwin % (Auto) (0.0-10.0) % Eos % (Auto) (0.0-4.0) % Baso % (Auto) (0.0-2.0) % Neut # (Auto) (1.8-7.0) K/uL Lymph # (Auto) (1.0-4.3) K/uL Gladwin # (Auto) (0.0-0.8) K/uL Eos # (Auto) (0.0-0.7) K/uL Baso # (Auto) (0.0-0.2) K/uL Neutrophils % (Manual) (42-75) % Band Neutrophils % (0-2) % Lymphocytes % (Manual) (20-50) % Monocytes % (Manual) (0-10) % Toxic Granulation Platelet Estimate (NORMAL) Large Platelets Hypochromasia (manual) Anisocytosis (manual) Tear Drop Cells Ovalocytes Sodium (132-148) mmol/l Potassium (3.6-5.0) MMOL/L Chloride (98-107) mmol/L Carbon Dioxide (22-30) mmol/L Anion Gap (10-20) BUN (9-20) mg/dl Creatinine (0.8-1.5) mg/dl Est GFR ( Amer) Est GFR (Non-Af Amer) Random Glucose (75-110) mg/dL Calcium (8.4-10.2) mg/dL Total Bilirubin (0.2-1.3) mg/dl Direct Bilirubin (0.0-0.4) mg/ml AST (17-59) U/L ALT (21-72) U/L Alkaline Phosphatase (38-126) U/L Lactate Dehydrogenase 429 (313-618) U/L Total Protein (6.3-8.2) G/DL Albumin (3.5-5.0) g/dL Globulin (2.2-3.9) gm/dL Albumin/Globulin Ratio (1.0-2.1) Urine Color (YELLOW) Urine Clarity (Clear) Urine pH (5.0-8.0) Ur Specific [place] (1.003-1.030) Urine Protein (NEGATIVE) mg/dL Urine Glucose (UA) (Normal) mg/dL Urine Ketones (NEGATIVE) mg/dL Urine Blood (NEGATIVE) Urine Nitrate (NEGATIVE) Urine Bilirubin (NEGATIVE) Urine Urobilinogen (0.2-1.0) mg/dL Ur Leukocyte Esterase (Negative) Jovani/uL Urine RBC (Auto) (0-3) /hpf Urine Microscopic WBC (0-5) /hpf Urine Bacteria (<OCC) Laboratory Results - last 24 hr 05/23/17 05/23/17 05/24/17 14:12 19:00 04:25 WBC 2.3 L RBC 3.47 L Hgb 9.1 L Hct 28.0 L MCV 80.6 MCH 26.1 L MCHC 32.4 L RDW 19.3 H Plt Count 20 L* MPV 8.5 Neut % (Auto) 93.1 H Lymph % (Auto) 4.9 L Glad[place] % (Auto) 1.0 Eos % (Auto) 0.9 Baso % (Auto) 0.1 Neut # (Auto) 2.2 Lymph # (Auto) 0.1 L [place] # (Auto) 0.0 Eos # (Auto) 0.0 Baso # (Auto) 0.0 Neutrophils % (Manual) 91 H Band Neutrophils % 2 Lymphocytes % (Manual) 3 L Monocytes % (Manual) 4 Toxic Granulation Present Platelet Estimate Decreased L Large Platelets Present Hypochromasia (manual) Slight Anisocytosis (manual) Slight Tear Drop Cells Slight Ovalocytes Slight Sodium Potassium Chloride Carbon Dioxide Anion Gap BUN Creatinine Est GFR ( Amer) Est GFR (Non-Af Amer) Random Glucose Calcium Total Bilirubin Direct Bilirubin AST ALT Alkaline Phosphatase Lactate Dehydrogenase 429 Total Protein Albumin Globulin Albumin/Globulin Ratio Urine Color Mad[place] Urine Clarity Cloudy Urine pH 5.0 Ur Specific [place] 1.021 Urine Protein Negative Urine Glucose (UA) Neg Urine Ketones Negative Urine Blood Small Urine Nitrate Negative Urine Bilirubin Moderate Urine Urobilinogen 4.0 Ur Leukocyte Esterase Neg Urine RBC (Auto) 6 H Urine Microscopic WBC 4 Urine Bacteria Rare 05/24/17 04:25 WBC RBC Hgb Hct MCV MCH MCHC RDW Plt Count MPV Neut % (Auto) Lymph % (Auto) Gladwin % (Auto) Eos % (Auto) Baso % (Auto) Neut # (Auto) Lymph # (Auto) Glad[place] # (Auto) Eos # (Auto) Baso # (Auto) Neutrophils % (Manual) Band Neutrophils % Lymphocytes % (Manual) Monocytes % (Manual) Toxic Granulation Platelet Estimate Large Platelets Hypochromasia (manual) Anisocytosis (manual) Tear Drop Cells Ovalocytes Sodium 132 Potassium 4.4 Chloride 101 Carbon Dioxide 18 L Anion Gap 17 BUN 49 H Creatinine 1.1 Est GFR ( Amer) > 60 Est GFR (Non-Af Amer) > 60 Random Glucose 104 Calcium 7.7 L Total Bilirubin 14.0 H Direct Bilirubin 12.8 H AST 44 ALT 74 H Alkaline Phosphatase 833 H Lactate Dehydrogenase Total Protein 5.0 L Albumin 1.9 L Globulin 3.1 Albumin/Globulin Ratio 0.6 L Urine Color Urine Clarity Urine pH Ur Specific [place] Urine Protein Urine Glucose (UA) Urine Ketones Urine Blood Urine Nitrate Urine Bilirubin Urine Urobilinogen Ur Leukocyte Esterase Urine RBC (Auto) Urine Microscopic WBC Urine Bacteria Review of Systems - Cardiovascular Cardiovascular: absent: Chest Pain, Chest Pain at Rest, Chest Pain with Activity , Claudication, Diaphoresis - Respiratory Respiratory: Dyspnea, Dyspnea on Exertion. absent: Cough, Hemoptysis, Wheezing , Snoring, Stridor - Gastrointestinal Gastrointestinal: absent: Abdominal Pain, Hematemesis, Melena, Nausea, Vomiting Critical Care Progress Note - Nutrition Nutrition: Nutrition Category Date Time Status Regular Diet [DIET] Diets 05/20/17 Dinner Active Assessment/Plan (1) Fever and chills Current Visit: No Status: Acute Comment: Persistant fever, Likely 2/2 to malignancy Continue with empiric coverage with Vancomycin and Meropenem Blood and urine culture NGTD CXR no infilterate (2) Hodgkin's lymphoma Current Visit: Yes Status: Acute Comment: Stage IV Received the first chemo cycle on 05/20/17 with Adriamycin/Bleomacyn/Vinblastine/ Decarbazine (3) AIDS (acquired immunodeficiency syndrome), CD4 <=200 Current Visit: No Status: Acute Comment: Continue current HIV treatment as per ID (4) Anasarca Current Visit: No Status: Acute (5) Tachycardia Current Visit: No Status: Acute (6) Elevated LFTs Current Visit: Yes Status: Acute Comment: GI consult Consider MRCP (7) Thrombocytopenia associated with AIDS Current Visit: No Status: Acute
[2017-05-24 13:17] LABS: ABG ALLEN TEST YES; ARTERIAL BLOOD GAS O2 SAT 99.1 % (95-98); ARTERIAL BLOOD GAS PCO2 27 mm/Hg (35-45); ARTERIAL BLOOD GAS PH 7.45 (7.35-7.45); ARTERIAL BLOOD GAS PO2 108 mm/Hg (80-100); ARTERIAL BLOOD GAS TCO2 19.6 mmol/L (22-28)
--- NOTE | 2017-05-24 15:20 | CP.PCM.PN ---
Subjective - Date & Time of Evaluation Date of Evaluation: 05/24/17 Time of Evaluation: 13:00 Objective - Vital Signs/Intake and Output Vital Signs (last 24 hours): Temp Pulse Resp BP Pulse Ox 100.4 F H 138 H 20 106/66 93 L 05/24/17 12:54 05/24/17 12:54 05/24/17 12:54 05/24/17 12:54 05/24/17 12:54 - Medications Medications: Current Medications Acetaminophen (Tylenol 325mg Tab) 650 mg PO Q4 PRN PRN Reason: Pain, Mild (1-3) Last Admin: 05/24/17 10:49 Dose: 650 mg Acetaminophen (Tylenol 325mg Tab) 650 mg PO Q4 PRN PRN Reason: Fever >100.4 F Last Admin: 05/23/17 23:22 Dose: 650 mg Atovaquone (Mepron) 1,500 mg PO DAILY DARRION PRN Reason: Protocol Last Admin: 05/24/17 08:49 Dose: 1,500 mg Furosemide (Lasix) 40 mg IVP DAILY [facility] Last Admin: 05/24/17 08:47 Dose: 40 mg Home Med (Patient's Own Medication) 1 unit PO DAILY [facility] Last Admin: 05/24/17 08:48 Dose: 1 unit Meropenem 1 gm/ Sodium (Chloride) 100 mls @ 100 mls/hr IVPB Q8 DARRION PRN Reason: Protocol Last Admin: 05/24/17 09:09 Dose: 100 mls/hr Vancomycin HCl 1 gm/ Sodium (Chloride) 250 mls @ 125 mls/hr IVPB DAILY [facility] Last Admin: 05/24/17 08:50 Dose: 125 mls/hr Lidocaine (Lidoderm) 1 ea TD DAILY [facility] Last Admin: 05/24/17 08:46 Dose: 1 ea Metoprolol Succinate (Toprol Xl) 12.5 mg PO DAILY ONE Stop: 05/24/17 17:38 Metoprolol Tartrate (Lopressor) 25 mg PO Q12 [facility] Morphine Sulfate (Morphine) 2 mg IVP Q4 PRN PRN Reason: Pain, moderate (4-7) Last Admin: 05/23/17 14:45 Dose: 2 mg Nystatin (Nystatin Oral Susp) 5 ml PO QID [facility] Last Admin: 05/24/17 13:34 Dose: 5 ml Ondansetron HCl (Zofran Inj) 4 mg IVP Q6 PRN PRN Reason: Nausea/Vomiting Saliva Substitute (First Magic Mouthwash) 5 ml PO Q4 PRN PRN Reason: Sore Throat Last Admin: 05/22/17 11:15 Dose: 5 ml - Labs Labs: 05/24/17 04:25 05/24/17 04:25 Assessment and Plan (1) HIV disease Status: Acute (2) Hodgkin's lymphoma Status: Acute (3) Anasarca Status: Acute (4) Fever Status: Acute
--- NOTE | 2017-05-24 15:22 | CP.PCM.PN ---
Subjective - Date & Time of Evaluation Date of Evaluation: 05/24/17 Time of Evaluation: 13:00 - Subjective Subjective: ID Note- pt. seen and examined today . weaker , more sob and abd distention. advise to be transferred to ICU for closer monitoring. Objective - Vital Signs/Intake and Output Vital Signs (last 24 hours): Temp Pulse Resp BP Pulse Ox 100.4 F H 138 H 20 106/66 93 L 05/24/17 12:54 05/24/17 12:54 05/24/17 12:54 05/24/17 12:54 05/24/17 12:54 - Medications Medications: Current Medications Acetaminophen (Tylenol 325mg Tab) 650 mg PO Q4 PRN PRN Reason: Pain, Mild (1-3) Last Admin: 05/24/17 10:49 Dose: 650 mg Acetaminophen (Tylenol 325mg Tab) 650 mg PO Q4 PRN PRN Reason: Fever >100.4 F Last Admin: 05/23/17 23:22 Dose: 650 mg Atovaquone (Mepron) 1,500 mg PO DAILY [facility] PRN Reason: Protocol Last Admin: 05/24/17 08:49 Dose: 1,500 mg Furosemide (Lasix) 40 mg IVP DAILY [facility] Last Admin: 05/24/17 08:47 Dose: 40 mg Home Med (Patient's Own Medication) 1 unit PO DAILY [facility] Last Admin: 05/24/17 08:48 Dose: 1 unit Meropenem 1 gm/ Sodium (Chloride) 100 mls @ 100 mls/hr IVPB Q8 [facility] PRN Reason: Protocol Last Admin: 05/24/17 09:09 Dose: 100 mls/hr Vancomycin HCl 1 gm/ Sodium (Chloride) 250 mls @ 125 mls/hr IVPB DAILY [facility] Last Admin: 05/24/17 08:50 Dose: 125 mls/hr Lidocaine (Lidoderm) 1 ea TD DAILY [facility] Last Admin: 05/24/17 08:46 Dose: 1 ea Metoprolol Succinate (Toprol Xl) 12.5 mg PO DAILY ONE Stop: 05/24/17 17:38 Metoprolol Tartrate (Lopressor) [address] [facility] Morphine Sulfate (Morphine) 2 mg IVP Q4 PRN PRN Reason: Pain, moderate (4-7) Last Admin: 05/23/17 14:45 Dose: 2 mg Nystatin (Nystatin Oral Susp) 5 ml PO QID [facility] Last Admin: 05/24/17 13:34 Dose: 5 ml Ondansetron HCl (Zofran Inj) 4 mg IVP Q6 PRN PRN Reason: Nausea/Vomiting Saliva Substitute (First Magic Mouthwash) 5 ml PO Q4 PRN PRN Reason: Sore Throat Last Admin: 05/22/17 11:15 Dose: 5 ml - Labs Labs: - Additional Findings Additional findings: - Constitutional Appears: Chronically Ill but is now jaundiced and more weak - Head Exam Head Exam: ATRAUMATIC - Eye Exam Eye Exam: EOMI, PERRL - Respiratory Exam Respiratory Exam: slight tachypnea Additional comments: slightly decreased breath sounds at the bases no wheezing - Cardiovascular Exam Cardiovascular Exam: tachycardic , +S1, +S2 - GI/Abdominal Exam Additional comments: more distended not soft generalized tenderness , + bowel sounds no guarding No rebound - Extremities Exam Additional comments: 1+ LE edema B/L - Neurological Exam Neurological exam: Alert, Oriented x 3 Laboratory Results - last 72 hr 05/22/17 05/22/17 05/22/17 06:45 06:45 06:45 WBC 3.5 L RBC 3.13 L Hgb 8.4 L Hct 24.9 L MCV 79.5 L MCH 26.8 L MCHC 33.7 RDW 18.8 H Plt Count 17 L* D MPV 7.2 Neut % (Auto) 96.8 H Lymph % (Auto) 1.8 L Nicholas % (Auto) 1.3 Eos % (Auto) 0.0 Baso % (Auto) 0.1 Neut # (Auto) 3.4 Lymph # (Auto) 0.1 L Nicholas # (Auto) 0.0 Eos # (Auto) 0.0 Baso # (Auto) 0.0 Total Counted Cancelled Neutrophils % (Manual) Cancelled Band Neutrophils % Cancelled Lymphocytes % (Manual) Cancelled Reactive Lymphs % Cancelled Monocytes % (Manual) Cancelled Eosinophils % (Manual) Cancelled Basophils % (Manual) Cancelled Metamyelocytes % Cancelled Myelocytes % Cancelled Promyelocytes % Cancelled Blast Cells % Cancelled Plasma Cell % (Manual) Cancelled Nucleated RBC % Cancelled Hypersegmented Polys Cancelled Smudge Cells Cancelled Toxic Granulation Cancelled Dohle Bodies Cancelled Jessica Rods Cancelled Platelet Estimate Cancelled Plt Clumps, EDTA Cancelled Large Platelets Cancelled Giant Platelets Cancelled RBC Morphology Cancelled Polychromasia Cancelled Hypochromasia (manual) Cancelled Poikilocytosis (manual Cancelled Basophilic Stippling Cancelled Anisocytosis (manual) Cancelled Microcytosis (manual) Cancelled Macrocytosis (manual) Cancelled Spherocytes Cancelled Sickle Cells Cancelled Target Cells Cancelled Tear Drop Cells Cancelled Ovalocytes Cancelled Stomatocytes Cancelled Helmet Cells Cancelled Mckinney-Collyer Bodies Cancelled [place] Cells Cancelled Acanthocytes (Spur) Cancelled Rouleaux Cancelled Schistocytes Cancelled pCO2 pO2 HCO3 ABG pH ABG Total CO2 ABG O2 Saturation ABG Base Excess Terry Test ABG Potassium A-a O2 Difference Glucose Lactate Vent Mode FiO2 Crit Value Called To Crit Value Called By Crit Value Read Back Blood Gas Notified Time Sodium 131 L Potassium 4.5 Chloride 100 Carbon Dioxide 19 L Anion Gap 17 BUN 38 H Creatinine 0.8 Est GFR ( Amer) > 60 Est GFR (Non-Af Amer) > 60 Random Glucose 111 H Uric Acid Calcium 7.9 L Magnesium Total Bilirubin 9.3 H Direct Bilirubin AST 89 H D ALT 61 Alkaline Phosphatase 470 H Lactate Dehydrogenase Total Protein 4.8 L Albumin 1.9 L Globulin 2.9 Albumin/Globulin Ratio 0.7 L Alpha Fetoprotein Arterial Blood Potassium Urine Color Urine Clarity Urine pH Ur Specific [place] Urine Protein Urine Glucose (UA) Urine Ketones Urine Blood Urine Nitrate Urine Bilirubin Urine Urobilinogen Ur Leukocyte Esterase Urine RBC (Auto) Urine Microscopic WBC Urine Bacteria Vancomycin Trough < 5.0 L Hep Bs Antigen 05/23/17 05/23/17 05/23/17 04:20 04:20 14:12 WBC 3.6 L RBC 3.35 L Hgb 9.0 L Hct 26.6 L MCV 79.5 L MCH 26.7 L MCHC 33.6 RDW 19.1 H Plt Count 21 L* MPV 10.0 Neut % (Auto) 95.8 H Lymph % (Auto) 1.9 L Nicholas % (Auto) 1.0 Eos % (Auto) 0.9 Baso % (Auto) 0.4 Neut # (Auto) 3.4 Lymph # (Auto) 0.1 L Nicholas # (Auto) 0.0 Eos # (Auto) 0.0 Baso # (Auto) 0.0 Total Counted Neutrophils % (Manual) 93 H Band Neutrophils % 4 H Lymphocytes % (Manual) 2 L Reactive Lymphs % Monocytes % (Manual) 1 Eosinophils % (Manual) Basophils % (Manual) Metamyelocytes % Myelocytes % Promyelocytes % Blast Cells % Plasma Cell % (Manual) Nucleated RBC % Hypersegmented Polys Smudge Cells Toxic Granulation Dohle Bodies Jessica Rods Platelet Estimate Markedly decreased L Plt Clumps, EDTA Large Platelets Present Giant Platelets RBC Morphology Polychromasia Hypochromasia (manual) Poikilocytosis (manual Basophilic Stippling Anisocytosis (manual) Slight Microcytosis (manual) Macrocytosis (manual) Spherocytes Sickle Cells Target Cells Tear Drop Cells Ovalocytes Slight Stomatocytes Helmet Cells Mckinney-Collyer Bodies [place] Cells Acanthocytes (Spur) Slight Rouleaux Schistocytes Slight pCO2 pO2 HCO3 ABG pH ABG Total CO2 ABG O2 Saturation ABG Base Excess Terry Test ABG Potassium A-a O2 Difference Glucose Lactate Vent Mode FiO2 Crit Value Called To Crit Value Called By Crit Value Read Back Blood Gas Notified Time Sodium 133 Potassium 4.7 Chloride 103 Carbon Dioxide 18 L Anion Gap 17 BUN 44 H Creatinine 0.9 Est GFR ( Amer) > 60 Est GFR (Non-Af Amer) > 60 Random Glucose 105 Uric Acid 3.9 Calcium 7.8 L Magnesium Total Bilirubin 12.0 H Direct Bilirubin AST 78 H ALT 83 H D Alkaline Phosphatase 747 H D Lactate Dehydrogenase 429 Total Protein 4.9 L Albumin 1.9 L Globulin 3.0 Albumin/Globulin Ratio 0.6 L Alpha Fetoprotein Arterial Blood Potassium Urine Color Urine Clarity Urine pH Ur Specific [place] Urine Protein Urine Glucose (UA) Urine Ketones Urine Blood Urine Nitrate Urine Bilirubin Urine Urobilinogen Ur Leukocyte Esterase Urine RBC (Auto) Urine Microscopic WBC Urine Bacteria Vancomycin Trough Hep Bs Antigen 05/23/17 05/24/17 05/24/17 19:00 04:25 04:25 WBC 2.3 L RBC 3.47 L Hgb 9.1 L Hct 28.0 L MCV 80.6 MCH 26.1 L MCHC 32.4 L RDW 19.3 H Plt Count 20 L* MPV 8.5 Neut % (Auto) 93.1 H Lymph % (Auto) 4.9 L Nicholas % (Auto) 1.0 Eos % (Auto) 0.9 Baso % (Auto) 0.1 Neut # (Auto) 2.2 Lymph # (Auto) 0.1 L Nicholas # (Auto) 0.0 Eos # (Auto) 0.0 Baso # (Auto) 0.0 Total Counted Neutrophils % (Manual) 91 H Band Neutrophils % 2 Lymphocytes % (Manual) 3 L Reactive Lymphs % Monocytes % (Manual) 4 Eosinophils % (Manual) Basophils % (Manual) Metamyelocytes % Myelocytes % Promyelocytes % Blast Cells % Plasma Cell % (Manual) Nucleated RBC % Hypersegmented Polys Smudge Cells Toxic Granulation Present Dohle Bodies Jessica Rods Platelet Estimate Decreased L Plt Clumps, EDTA Large Platelets Present Giant Platelets RBC Morphology Polychromasia Hypochromasia (manual) Slight Poikilocytosis (manual Basophilic Stippling Anisocytosis (manual) Slight Microcytosis (manual) Macrocytosis (manual) Spherocytes Sickle Cells Target Cells Tear Drop Cells Slight Ovalocytes Slight Stomatocytes Helmet Cells Mckinney-Collyer Bodies [place] Cells Acanthocytes (Spur) Rouleaux Schistocytes pCO2 pO2 HCO3 ABG pH ABG Total CO2 ABG O2 Saturation ABG Base Excess Terry Test ABG Potassium A-a O2 Difference Glucose Lactate Vent Mode FiO2 Crit Value Called To Crit Value Called By Crit Value Read Back Blood Gas Notified Time Sodium 132 Potassium 4.4 Chloride 101 Carbon Dioxide 18 L Anion Gap 17 BUN 49 H Creatinine 1.1 Est GFR ( Amer) > 60 Est GFR (Non-Af Amer) > 60 Random Glucose 104 Uric Acid Calcium 7.7 L Magnesium Total Bilirubin 14.0 H Direct Bilirubin 12.8 H AST 44 ALT 74 H Alkaline Phosphatase 833 H Lactate Dehydrogenase Total Protein 5.0 L Albumin 1.9 L Globulin 3.1 Albumin/Globulin Ratio 0.6 L Alpha Fetoprotein Arterial Blood Potassium Urine Color [place] Urine Clarity Cloudy Urine pH 5.0 Ur Specific [place] 1.021 Urine Protein Negative Urine Glucose (UA) Neg Urine Ketones Negative Urine Blood Small Urine Nitrate Negative Urine Bilirubin Moderate Urine Urobilinogen 4.0 Ur Leukocyte Esterase Neg Urine RBC (Auto) 6 H Urine Microscopic WBC 4 Urine Bacteria Rare Vancomycin Trough Hep Bs Antigen 05/24/17 05/24/17 05/24/17 12:11 13:08 14:27 WBC RBC Hgb Hct MCV MCH MCHC RDW Plt Count MPV Neut % (Auto) Lymph % (Auto) Nicholas % (Auto) Eos % (Auto) Baso % (Auto) Neut # (Auto) Lymph # (Auto) Nicholas # (Auto) Eos # (Auto) Baso # (Auto) Total Counted Neutrophils % (Manual) Band Neutrophils % Lymphocytes % (Manual) Reactive Lymphs % Monocytes % (Manual) Eosinophils % (Manual) Basophils % (Manual) Metamyelocytes % Myelocytes % Promyelocytes % Blast Cells % Plasma Cell % (Manual) Nucleated RBC % Hypersegmented Polys Smudge Cells Toxic Granulation Dohle Bodies Jessica Rods Platelet Estimate Plt Clumps, EDTA Large Platelets Giant Platelets RBC Morphology Polychromasia Hypochromasia (manual) Poikilocytosis (manual Basophilic Stippling Anisocytosis (manual) Microcytosis (manual) Macrocytosis (manual) Spherocytes Sickle Cells Target Cells Tear Drop Cells Ovalocytes Stomatocytes Helmet Cells Mckinney-Collyer Bodies [place] Cells Acanthocytes (Spur) Rouleaux Schistocytes pCO2 27 L pO2 108 H HCO3 22.0 ABG pH 7.45 ABG Total CO2 19.6 L ABG O2 Saturation 99.1 H ABG Base Excess -3.8 L Terry Test Yes ABG Potassium 3.7 A-a O2 Difference 58.0 Glucose 152 H Lactate 2.2 H Vent Mode 2lnc FiO2 28.0 Crit Value Called To Gaurav thompson Crit Value Called By Pako jeong Crit Value Read Back Y Blood Gas Notified Time 1317 Sodium 124.0 L Potassium Chloride 101.0 Carbon Dioxide Anion Gap BUN Creatinine Est GFR ( Amer) Est GFR (Non-Af Amer) Random Glucose Uric Acid Calcium Magnesium 2.4 H Total Bilirubin Direct Bilirubin AST ALT Alkaline Phosphatase Lactate Dehydrogenase Total Protein Albumin Globulin Albumin/Globulin Ratio Alpha Fetoprotein 0.9 Arterial Blood Potassium 3.7 Urine Color Urine Clarity Urine pH Ur Specific [place] Urine Protein Urine Glucose (UA) Urine Ketones Urine Blood Urine Nitrate Urine Bilirubin Urine Urobilinogen Ur Leukocyte Esterase Urine RBC (Auto) Urine Microscopic WBC Urine Bacteria Vancomycin Trough Hep Bs Antigen 05/24/17 14:27 WBC RBC Hgb Hct MCV MCH MCHC RDW Plt Count MPV Neut % (Auto) Lymph % (Auto) Nicholas % (Auto) Eos % (Auto) Baso % (Auto) Neut # (Auto) Lymph # (Auto) Nicholas # (Auto) Eos # (Auto) Baso # (Auto) Total Counted Neutrophils % (Manual) Band Neutrophils % Lymphocytes % (Manual) Reactive Lymphs % Monocytes % (Manual) Eosinophils % (Manual) Basophils % (Manual) Metamyelocytes % Myelocytes % Promyelocytes % Blast Cells % Plasma Cell % (Manual) Nucleated RBC % Hypersegmented Polys Smudge Cells Toxic Granulation Dohle Bodies Jessica Rods Platelet Estimate Plt Clumps, EDTA Large Platelets Giant Platelets RBC Morphology Polychromasia Hypochromasia (manual) Poikilocytosis (manual Basophilic Stippling Anisocytosis (manual) Microcytosis (manual) Macrocytosis (manual) Spherocytes Sickle Cells Target Cells Tear Drop Cells Ovalocytes Stomatocytes Helmet Cells Mckinney-Collyer Bodies [place] Cells Acanthocytes (Spur) Rouleaux Schistocytes pCO2 pO2 HCO3 ABG pH ABG Total CO2 ABG O2 Saturation ABG Base Excess Terry Test ABG Potassium A-a O2 Difference Glucose Lactate Vent Mode FiO2 Crit Value Called To Crit Value Called By Crit Value Read Back Blood Gas Notified Time Sodium Potassium Chloride Carbon Dioxide Anion Gap BUN Creatinine Est GFR ( Amer) Est GFR (Non-Af Amer) Random Glucose Uric Acid Calcium Magnesium Total Bilirubin Direct Bilirubin AST ALT Alkaline Phosphatase Lactate Dehydrogenase Total Protein Albumin Globulin Albumin/Globulin Ratio Alpha Fetoprotein Arterial Blood Potassium Urine Color Urine Clarity Urine pH Ur Specific [place] Urine Protein Urine Glucose (UA) Urine Ketones Urine Blood Urine Nitrate Urine Bilirubin Urine Urobilinogen Ur Leukocyte Esterase Urine RBC (Auto) Urine Microscopic WBC Urine Bacteria Vancomycin Trough Hep Bs Antigen Negative Microbiology 05/23/17 17:41 Blood-Venous Blood Culture - Preliminary NO GROWTH AFTER 24 HOURS 05/23/17 17:41 Blood-Venous Blood Culture - Preliminary NO GROWTH AFTER 24 HOURS 05/20/17 17:32 Blood-Venous Blood Culture - Preliminary NO GROWTH AFTER 4 DAYS 05/21/17 10:30 Urine,Random Urine Culture - Final No Growth (<1,000 CFU/ML) Assessment and Plan (1) HIV disease Status: Acute (2) Hodgkin's lymphoma Status: Acute (3) Anasarca Status: Acute (4) Fever Status: Acute - Assessment and Plan (Free Text) Assessment: A/P- 37 year old male with HIV f/u at [facility] on [address] with UD VL but CD4-17 , newly diagnosed stage $ Hodgkin;s lymphoma s/p first chemo yesterday admitted with weakness. fevers persist tachycardic, jaundiced and weaker anasarca all blood and urine cx negative to date pt. kept on empiric broad spectrum IV abx for now since his immunesuppressed and likely will become neutropenic post chemo. TTE negative for vegetations as per report. pancytopneic plan- continue with empiric IV vancomycin day #8 since pt. is immunocompromised keep vanco trough <15. continue with empiric meropnem day #6 to cover for nosocomial pathogens since pt. was recently hospitalized and is immune suppressed pending further results. advise nystatin mouth wash PRN. HIV meds and meds to prevent opportunistic infection as per his HIV doctor at [facility]. advise to check abd US /xray advise GI evaluation continue with empiric Neutropenic precautions. spoke with DR. Ramírez Morelos and advise pt. to be transferred to ICU for closer monitoring since his condition is tenuous All above d/w patient and his mother at length and they verbalizes full understanding of all above and agrees with above plan of care.
[2017-05-24] MEDS ORDERED: Metoprolol Succinate 25 mg XL Tab PO ONE (17:37)
--- NOTE | 2017-05-24 19:35 | CP.PCM.PN ---
Subjective - Date & Time of Evaluation Date of Evaluation: 05/24/17 Time of Evaluation: 17:00 - Subjective Subjective: Transferred to ICU More abdominal distension and testicular swelling Feels more weak For GI evaluation given rising tbili Objective - Vital Signs/Intake and Output Vital Signs (last 24 hours): Temp Pulse Resp BP Pulse Ox 101 F H 125 H 40 H 98/56 L 96 05/24/17 18:00 05/24/17 18:00 05/24/17 18:00 05/24/17 18:00 05/24/17 18:00 - Medications Medications: Current Medications Acetaminophen (Tylenol 325mg Tab) 650 mg PO Q4 PRN PRN Reason: Pain, Mild (1-3) Last Admin: 05/24/17 10:49 Dose: 650 mg Acetaminophen (Tylenol 325mg Tab) 650 mg PO Q4 PRN PRN Reason: Fever >100.4 F Last Admin: 05/24/17 17:09 Dose: 650 mg Atovaquone (Mepron) 1,500 mg PO DAILY DARRION PRN Reason: Protocol Last Admin: 05/24/17 08:49 Dose: 1,500 mg Furosemide (Lasix) 40 mg IVP DAILY [facility] Last Admin: 05/24/17 08:47 Dose: 40 mg Home Med (Patient's Own Medication) 1 unit PO DAILY [facility] Last Admin: 05/24/17 08:48 Dose: 1 unit Meropenem 1 gm/ Sodium (Chloride) 100 mls @ 100 mls/hr IVPB Q8 DARRION PRN Reason: Protocol Last Admin: 05/24/17 16:10 Dose: 100 mls/hr Vancomycin HCl 1 gm/ Sodium (Chloride) 250 mls @ 125 mls/hr IVPB DAILY [facility] Last Admin: 05/24/17 08:50 Dose: 125 mls/hr Lidocaine (Lidoderm) 1 ea TD DAILY [facility] Last Admin: 05/24/17 08:46 Dose: 1 ea Metoprolol Tartrate (Lopressor) 25 mg PO Q12 [facility] Morphine Sulfate (Morphine) 2 mg IVP Q4 PRN PRN Reason: Pain, moderate (4-7) Last Admin: 05/23/17 14:45 Dose: 2 mg Nystatin (Nystatin Oral Susp) 5 ml PO QID [facility] Last Admin: 05/24/17 16:11 Dose: 5 ml Ondansetron HCl (Zofran Inj) 4 mg IVP Q6 PRN PRN Reason: Nausea/Vomiting Saliva Substitute (First Magic Mouthwash) 5 ml PO Q4 PRN PRN Reason: Sore Throat Last Admin: 05/22/17 11:15 Dose: 5 ml - Labs Labs: 05/24/17 04:25 05/24/17 04:25 - Head Exam Head Exam: ATRAUMATIC - Eye Exam Eye Exam: Scleral icterus - ENT Exam ENT Exam: Mucous Membranes Dry - Respiratory Exam Respiratory Exam: Respiratory Distress - Cardiovascular Exam Cardiovascular Exam: +S1, +S2 - GI/Abdominal Exam GI & Abdominal Exam: Normal Bowel Sounds - Extremities Exam Extremities Exam: Pedal Edema Assessment and Plan (1) Pancytopenia Assessment & Plan: multifactorial HIV/AIDS, lymphoma, recent chemotherapy intermittent growth factor support goal plt > 10,000 Status: Acute (2) Hodgkin's lymphoma Assessment & Plan: stage IVb s/p chemotherapy Status: Acute
[2017-05-24 21:08] LABS: HEPATITIS B SURFACE AG Negative (NEGATIVE)
[2017-05-24 21:12] LABS: HEPATITIS A IGM NEGATIVE (NEGATIVE); HEPATITIS B CORE AB NEGATIVE (NEGATIVE)
[2017-05-24 21:24] LABS: HEPATITIS C ANTIBODY NEGATIVE (NEGATIVE)
[2017-05-25] MEDS: Meropenem 1 GM in Sodium Chloride 0.9% 100 ML IVPB SCH ×3 (00:22→17:18)
[2017-05-25 05:57] LABS: HEMOGLOBIN 8.9 g/dL (12.0-18.0); MEAN CELL VOLUME 78.9 fl (80.0-94.0); MEAN CORPUSCULAR HEMOGLOBIN 26.3 pg (27.0-31.0); MEAN CORPUSCULAR HGB CONC 33.3 g/dL (33.0-37.0); RBC 3.38 Mil/uL (4.40-5.90); RED CELL DISTRIBUTION WIDTH 19.2 % (11.5-14.5)
[2017-05-25 06:35] LABS: WHITE BLOOD COUNT 0.6 K/uL (4.8-10.8)
[2017-05-25 06:59] LABS: ALB/GLOB RATIO 0.6 (1.0-2.1); ALT/SGPT 53 U/L (21-72); AST/SGOT 44 U/L (17-59); BILIRUBIN,DIRECT 12.7 mg/ml (0.0-0.4); BLOOD UREA NITROGEN 53 mg/dl (9-20); CALCIUM 7.6 mg/dL (8.4-10.2); GFR AFRICAN-AMERICAN > 60; GFR NON-AFRICAN AMERICAN > 60
--- NOTE | 2017-05-25 08:39 | CP.PCM.PN ---
Subjective - Date & Time of Evaluation Date of Evaluation: 05/25/17 Time of Evaluation: 07:33 - Subjective Subjective: ICU day 2. Patient seen and examined in ICU this morning, no acute overnight event. Patient reports feeling weaker today, denies sob, but breathing on NC at 3L. Anasarca, jaundice, spike fever last evening and early childhood associate. Afebrile now. c / on neutropenic precautions. Fluids restriction. Objective - Vital Signs/Intake and Output Vital Signs (last 24 hours): Temp Pulse Resp BP Pulse Ox 100.9 F H 111 H 33 H 105/54 L 95 05/25/17 04:21 05/25/17 06:00 05/25/17 06:00 05/25/17 06:00 05/25/17 06:00 Intake and Output: 05/25/17 05/25/17 06:59 18:59 Intake Total 200 Output Total 200 Balance 0 - Medications Medications: Current Medications Acetaminophen (Tylenol 325mg Tab) 650 mg PO Q4 PRN PRN Reason: Pain, Mild (1-3) Last Admin: 05/24/17 10:49 Dose: 650 mg Acetaminophen (Tylenol 325mg Tab) 650 mg PO Q4 PRN PRN Reason: Fever >100.4 F Last Admin: 05/25/17 04:21 Dose: 650 mg Atovaquone (Mepron) 1,500 mg PO DAILY [facility]ION PRN Reason: Protocol Last Admin: 05/24/17 08:49 Dose: 1,500 mg Furosemide (Lasix) 40 mg IVP DAILY [facility] Last Admin: 05/24/17 08:47 Dose: 40 mg Home Med (Patient's Own Medication) 1 unit PO DAILY [facility] Last Admin: 05/24/17 08:48 Dose: 1 unit Meropenem 1 gm/ Sodium (Chloride) 100 mls @ 100 mls/hr IVPB Q8 [facility] PRN Reason: Protocol Last Admin: 05/25/17 00:22 Dose: 100 mls/hr Vancomycin HCl 1 gm/ Sodium (Chloride) 250 mls @ 125 mls/hr IVPB DAILY [facility] Last Admin: 05/24/17 08:50 Dose: 125 mls/hr Lidocaine (Lidoderm) 1 ea TD DAILY [facility] Last Admin: 05/24/17 08:46 Dose: 1 ea Metoprolol Tartrate (Lopressor) 25 mg PO Q12 [facility] Last Admin: 05/24/17 21:57 Dose: 25 mg Morphine Sulfate (Morphine) 2 mg IVP Q4 PRN PRN Reason: Pain, moderate (4-7) Last Admin: 05/23/17 14:45 Dose: 2 mg Nystatin (Nystatin Oral Susp) 5 ml PO QID [facility] Last Admin: 05/24/17 21:57 Dose: 5 ml Ondansetron HCl (Zofran Inj) 4 mg IVP Q6 PRN PRN Reason: Nausea/Vomiting Saliva Substitute (First Magic Mouthwash) 5 ml PO Q4 PRN PRN Reason: Sore Throat Last Admin: 05/22/17 11:15 Dose: 5 ml - Labs Labs: 05/25/17 04:45 05/25/17 04:45 - Constitutional Appears: Cachectic, Chronically Ill - Head Exam Head Exam: NORMAL INSPECTION - Eye Exam Eye Exam: EOMI, PERRL, Scleral icterus - ENT Exam ENT Exam: Mucous Membranes Dry - Respiratory Exam Respiratory Exam: Rales (L lung base, dyspnea), NORMAL BREATHING PATTERN. absent: Respiratory Distress - Cardiovascular Exam Cardiovascular Exam: Tachycardia, REGULAR RHYTHM, +S1, +S2 - GI/Abdominal Exam GI & Abdominal Exam: Distended, Tenderness, Normal Bowel Sounds - Exam Exam: Scrotal Swelling - Extremities Exam Extremities Exam: absent: Calf Tenderness Additional comments: Generalized swelling b/l - Neurological Exam Neurological Exam: Alert, Awake, Oriented x3 - Skin Additional comments: Jaundiced Assessment and Plan - Assessment and Plan (Free Text) Assessment: 37yo M with PMHx of HIV/AIDS and recently diagnosed Hodgkins Lymphoma stage 4 s/ p chemo cycle #1 05/20/17 admitted for persistent fevers. Anasarca, Hyperbilirubinemia. Transferred to ICU. Plan: c/w empiric IV abx and opportunistic infections prophylaxis . Fluids restriction, c/w IV Lasix. F/U MRCP. 1- Fevers, persistent -most likely 2/2 to malignancy -Tylenol prn -ID on board, Recs appreciated -c/w Vancomycin and Meropenem IV day 8 (prophylaxis gram positive and gram negative microorganisms) -blood culture NGTD -urine culture negative - CXR 05/23: no active lung disease, no pleural effusions noted. 2- S4 lymphoma - s/p chemo cycle #1 05/20/17: Adriamycin/Bleomacyn/Vinblastine/Decarbazine - Hematology/Onc on board, Recs appreciated - Uric acid 3.9(wnl) 3- oral thrush - c/w PO nystatin - magic mouth wash 4- Tachycardia - continues gambling monitor - Oxygen via NC started 2 LPM and titrate as needed to maintain oxygen saturation >94 % - c/w metoprolol succ 25 mg PO daily - EKG: sinus tachycardia, RA enlargement. 5- Anarsarca - Nephro Dr Graves recs appreciated: -strict oral fluids restriction -d/c IV fluids -c/w lasix 40mg IV daily - start Aldactone 25mg BID 6- Pancytopenia -most likely 2/2 malignancy -transfuse pRBC if Hgb <8, FFPE if plt<10 - s/p Granix 05/22 7- Hyponatremia, resolved - likely related to the massive ascites dilutional - Na 131 8- Elevated LFTs/bilirubin with liver mets - liver US wnl - TB 14.0 - GI Dr Austin on board - likely secondary to chemo - f/u MRCP 9- HIV/AIDS - lymphocyte panel on 05/17/17 - CD4 count <20, CD4 6% - C/W current HIV treatment (pt owns medications, started Biktarvy once chemo started) - per ID stopped azithro 1x weekly (last dose 05/18/17) - c/w Mepron (atovaquone) 1500 mg PO daily (PCP prophylaxis) 10- DVT prophylaxis -no pharmacological agents 2/2 thrombocytopenia -SCDs 11- Code -Full, confirmed with pt 05/22/17
[2017-05-25 08:52] LABS: BILIRUBIN,DIRECT 10.5 mg/ml (0.0-0.4)
[2017-05-25] MEDS: Nystatin 100,000 Units/ml Oral Susp 5 ml UD PO SCH ×4 (10:00→21:06)
[2017-05-25] MEDS: BIKTARVY PO SCH (10:00)
[2017-05-25] MEDS: Atovaquone 750 mg/5 ml Susp UD PO SCH (10:00)
[2017-05-25] MEDS: Lidocaine 5% Patch TD SCH (10:00)
--- NOTE | 2017-05-25 13:43 | CP.CCUPN ---
CCU Subjective - Physician Review Subjective (Free Text): Appears lethargic, but opens eyes and able to concentrate on answering simple questions, his mother is at the bedside. Tachypneic at 32/min, 98% SPo2 on 2 LPM nasal cannula, but does not appear distressed. Returned from MRCP study this AM. Other VS and I/Os reviewed. ROS: No other pertinent negs or positives on 10+ system review. PMSFH: All other Nursing and physician documentation reviewed to date; no new pertinent info noted relevant to current medical problems. EXAM- HEENT: no icterus, no gaze preference, pupils 3 mm equal, ++ icterus NECK: No JVD, supple, carotids equal upstroke bilat/no bruits CHEST: decreased BS bases, no wheezes audible HEART: regular distant, S1S2, no rubs. ABD: soft, + distention, + tenderness across periumbilical area, BS hypoactive EXT: ++edema bilat with anasarca and scrotal edema. No peripheral/ digital cyanosis, no calf tenderness or palpable cords, distal pulses intact and symmetrical. NEURO: no gross focal motor deficits SKIN: no rashes, warm and dry. LABS: WBC= 0.6 HGB= 8.9 PLTs= 26 K Na= 131 K= 4.3 CL= 101 HCO3= 18 BUN/Cr= 53/1.1 BS= 112 Alk Phos 936 AST / ALT are normal TBili 14.1 with mostly Direct fraction elevated. INR/ Coags: none ordered. CXR 05/23: mediastinal nodes prominent, no new consolidation. MRCP results pending. IMPRESSION / MAJOR PROBLEMS NOW: 1. Neutropenic Sepsis, without Shock state, r/o bacteremia 2. Jaundice, with Alk Phos elevation: r/o cholestatic versus infiltrative / mets disease. 3. Hodgkins Lymphoma 4. HIV disease with h/o AIDS PLAN: 1. GCSF started. 2. No active bleeding, check Coags, platelets trending lower, HemOnc may be giving supplemental platelets. 3. Await MRCP results, ruling out for any obstructive phenomena. 4. Fluids placed on hold, Lasix continued and Metoprolol being given for tachycardic responses. Assess repeat Lactate level, last level 2.2 yesterday. 5. Empiric abx coverage 6. See orders. CCU Objective - Vital Signs / Intake & Output Vital Signs (Last 4 hours): Vital Signs Temp Pulse Resp BP Pulse Ox 05/25/17 12:54 100.4 F H 05/25/17 12:00 99.5 F 127 H 38 H 115/70 99 05/25/17 10:49 112/73 05/25/17 10:00 117 H 32 H 112/73 98 Intake and Output (Last 8hrs): Intake & Output 05/24/17 05/25/17 05/25/17 22:59 06:59 14:59 Intake Total 200 Output Total 200 Balance 0 Intake: Oral 200 Output: Urine 200 Urine, Voided 200 Other: # Voids Urine, Voided 1 # Bowel Movements 2
--- NOTE | 2017-05-25 14:37 | CP.PCM.PN ---
Subjective - Date & Time of Evaluation Date of Evaluation: 05/25/17 Time of Evaluation: 14:37 - Subjective Subjective: ID Note- Pt. seen and examine today in ICU. tachypneic, jaundiced, lethargic. abdominal distention. had diarrhea today. Objective - Vital Signs/Intake and Output Vital Signs (last 24 hours): Temp Pulse Resp BP Pulse Ox 100.4 F H 137 H 31 H 107/53 L 97 05/25/17 12:54 05/25/17 14:00 05/25/17 14:00 05/25/17 14:00 05/25/17 14:00 Intake and Output: 05/25/17 05/25/17 06:59 18:59 Intake Total 200 Output Total 200 Balance 0 - Medications Medications: Current Medications Acetaminophen (Tylenol 325mg Tab) 650 mg PO Q4 PRN PRN Reason: Pain, Mild (1-3) Last Admin: 05/24/17 10:49 Dose: 650 mg Acetaminophen (Tylenol 325mg Tab) 650 mg PO Q4 PRN PRN Reason: Fever >100.4 F Last Admin: 05/25/17 12:54 Dose: 650 mg Atovaquone (Mepron) 1,500 mg PO DAILY [facility] PRN Reason: Protocol Last Admin: 05/25/17 10:00 Dose: 1,500 mg Furosemide (Lasix) 40 mg IVP DAILY [facility] Last Admin: 05/25/17 10:49 Dose: 40 mg Home Med (Patient's Own Medication) 1 unit PO DAILY [facility] Last Admin: 05/25/17 10:00 Dose: 1 unit Meropenem 1 gm/ Sodium (Chloride) 100 mls @ 100 mls/hr IVPB Q8 [facility] PRN Reason: Protocol Last Admin: 05/25/17 10:00 Dose: 100 mls/hr Vancomycin HCl 1 gm/ Sodium (Chloride) 250 mls @ 125 mls/hr IVPB DAILY [facility] Last Admin: 05/25/17 11:00 Dose: 125 mls/hr Lidocaine (Lidoderm) 1 ea TD DAILY [facility] Last Admin: 05/25/17 10:00 Dose: 1 ea Metoprolol Tartrate (Lopressor) 25 mg PO Q12 [facility] Last Admin: 05/25/17 10:00 Dose: 25 mg Morphine Sulfate (Morphine) 2 mg IVP Q4 PRN PRN Reason: Pain, moderate (4-7) Last Admin: 05/23/17 14:45 Dose: 2 mg Nystatin (Nystatin Oral Susp) 5 ml PO QID [facility] Last Admin: 05/25/17 12:25 Dose: 5 ml Ondansetron HCl (Zofran Inj) 4 mg IVP Q6 PRN PRN Reason: Nausea/Vomiting Saliva Substitute (First Magic Mouthwash) 5 ml PO Q4 PRN PRN Reason: Sore Throat Last Admin: 05/22/17 11:15 Dose: 5 ml - Labs Labs: 05/25/17 04:45 05/25/17 04:45 - Additional Findings Additional findings: - Constitutional Appears: Chronically Ill but is now jaundiced and more weak - Head Exam Head Exam: ATRAUMATIC - Eye Exam Eye Exam: EOMI, PERRL - Respiratory Exam Respiratory Exam: tachypnea Additional comments: slightly decreased breath sounds at the bases no wheezing - Cardiovascular Exam Cardiovascular Exam: tachycardic , +S1, +S2 - GI/Abdominal Exam Additional comments: more distended generalized tenderness , + bowel sounds no guarding No rebound - Extremities Exam Additional comments: 1+ LE edema B/L - Neurological Exam Neurological exam: Alert, Oriented x 3 Microbiology 05/23/17 17:41 Blood-Venous Blood Culture - Preliminary NO GROWTH AFTER 48 HOURS 05/23/17 17:41 Blood-Venous Blood Culture - Preliminary NO GROWTH AFTER 48 HOURS 05/20/17 17:32 Blood-Venous Blood Culture - Final NO GROWTH AFTER 5 DAYS 05/20/17 17:32 Blood-Venous Gram Stain - Final TEST NOT PERFORMED 05/21/17 10:30 Urine,Random Urine Culture - Final No Growth (<1,000 CFU/ML) Accession No. : [id number] Patient Name / ID : CHENTE ESCOBAR / [id number] Exam Date : 05/25/2017 08:55:24 ( Approved ) Study Comment : Sex / Age : M / 37Y Creator : Hipolito Lucia MD Dictator : Hipolito Lucia MD Linux System Admin : Quarry Worker : Hipolito Lucia MD Approver2 : Report Date : 05/25/2017 16:42:41 My Comment : PROCEDURE: Magnetic Resonance Cholangiopancreatography HISTORY: COMPARISON: None available. TECHNIQUE: Multiplanar, multisequence MR images of the abdomen were obtained, including heavily T2 weighted MRCP images of the biliary system. Rotating maximum intensity projection images of the biliary system were generated. FINDINGS: MRCP: MRCP examination limited due to respiratory motion artifact. Normal thin common bile duct. No intrahepatic biliary dilatation. LIVER: Hepatomegaly. Multifocal ill-defined mass is mildly increased signal on T2 weighted images and decreased T1 weighted signal. Suspicious for metastatic disease. This correlates with recent abdominal/ pelvic CT of 04/21/2017. GALLBLADDER: Unremarkable. SPLEEN: Splenomegaly. The spleen measures 17.7 cm in greatest dimension. PANCREAS: Unremarkable. ADRENALS: Unremarkable. KIDNEYS: Unremarkable. AORTA: No aneurysm. ASCITES: Mild ascites OTHER FINDINGS: None. IMPRESSION: No evidence of biliary obstruction. Numerous ill-defined hepatic masses suspicious for metastatic disease. Hepatic splenomegaly. Ascites. Assessment and Plan (1) HIV disease Status: Acute (2) Hodgkin's lymphoma Status: Acute (3) Anasarca Status: Acute (4) Fever Status: Acute - Assessment and Plan (Free Text) Assessment: A/P- 37 year old male with HIV f/u at [facility] on [address] with UD VL but CD4-17 , newly diagnosed stage $ Hodgkin;s lymphoma s/p first chemo yesterday admitted with weakness. fevers persist tachycardic, jaundiced and weaker anasarca all blood and urine cx negative to date pt. kept on empiric broad spectrum IV abx for now since his immunesuppressed and likely will become neutropenic post chemo. TTE negative for vegetations as per report. pancytopneic NRCP report noted. plan- continue with empiric IV vancomycin day #9 since pt. is immunocompromised keep vanco trough <15. continue with empiric meropnem day #7 to cover for nosocomial pathogens since pt. was recently hospitalized and is immune suppressed pending further results. advise GI evaluation check stool c.diff and stool culture. continue with empiric Neutropenic precautions. all above d/w patient and his mother who is at bedside and with battery recharger. condition guarded. ICU time 50 minutes.
--- NOTE | 2017-05-25 16:15 | CP.PCM.PN ---
Subjective - Date & Time of Evaluation Date of Evaluation: 05/25/17 Time of Evaluation: 16:12 - Subjective Subjective: no overnight events Objective - Vital Signs/Intake and Output Vital Signs (last 24 hours): Temp Pulse Resp BP Pulse Ox 102.0 F H 137 H 31 H 107/53 L 97 05/25/17 15:44 05/25/17 14:00 05/25/17 14:00 05/25/17 14:00 05/25/17 14:00 Intake and Output: 05/25/17 05/25/17 06:59 18:59 Intake Total 200 Output Total 200 Balance 0 - Medications Medications: Current Medications Acetaminophen (Tylenol 325mg Tab) 650 mg PO Q4 PRN PRN Reason: Pain, Mild (1-3) Last Admin: 05/24/17 10:49 Dose: 650 mg Acetaminophen (Tylenol 325mg Tab) 650 mg PO Q4 PRN PRN Reason: Fever >100.4 F Last Admin: 05/25/17 15:44 Dose: 650 mg Atovaquone (Mepron) 1,500 mg PO DAILY [facility] PRN Reason: Protocol Last Admin: 05/25/17 10:00 Dose: 1,500 mg Furosemide (Lasix) 40 mg IVP DAILY [facility] Last Admin: 05/25/17 10:49 Dose: 40 mg Home Med (Patient's Own Medication) 1 unit PO DAILY [facility] Last Admin: 05/25/17 10:00 Dose: 1 unit Meropenem 1 gm/ Sodium (Chloride) 100 mls @ 100 mls/hr IVPB Q8 [facility] PRN Reason: Protocol Last Admin: 05/25/17 10:00 Dose: 100 mls/hr Vancomycin HCl 1 gm/ Sodium (Chloride) 250 mls @ 125 mls/hr IVPB DAILY [facility] Last Admin: 05/25/17 11:00 Dose: 125 mls/hr Lidocaine (Lidoderm) 1 ea TD DAILY [facility] Last Admin: 05/25/17 10:00 Dose: 1 ea Metoprolol Tartrate (Lopressor) 25 mg PO Q12 [facility] Last Admin: 05/25/17 10:00 Dose: 25 mg Morphine Sulfate (Morphine) 2 mg IVP Q4 PRN PRN Reason: Pain, moderate (4-7) Last Admin: 05/23/17 14:45 Dose: 2 mg Nystatin (Nystatin Oral Susp) 5 ml PO QID [facility] Last Admin: 05/25/17 12:25 Dose: 5 ml Ondansetron HCl (Zofran Inj) 4 mg IVP Q6 PRN PRN Reason: Nausea/Vomiting Saliva Substitute (First Magic Mouthwash) 5 ml PO Q4 PRN PRN Reason: Sore Throat Last Admin: 05/22/17 11:15 Dose: 5 ml Spironolactone (Aldactone) 25 mg PO BID [facility] - Labs Labs: 05/25/17 04:45 05/25/17 04:45 - Neck Exam Neck Exam: Normal Inspection - Respiratory Exam Respiratory Exam: Respiratory Distress - Cardiovascular Exam Cardiovascular Exam: Tachycardia - GI/Abdominal Exam GI & Abdominal Exam: Distended, Tenderness Assessment and Plan - Assessment and Plan (Free Text) Assessment: 37 yo male with AIDS and lymphoma onc input appreciated mrcp pending diarrhea w/u in progress prognosis poor
--- NOTE | 2017-05-25 16:49 | MRI ---
PROCEDURE: Magnetic Resonance Cholangiopancreatography HISTORY: COMPARISON: None available. TECHNIQUE: Multiplanar, multisequence MR images of the abdomen were obtained, including heavily T2 weighted MRCP images of the biliary system. Rotating maximum intensity projection images of the biliary system were generated. FINDINGS: MRCP: MRCP examination limited due to respiratory motion artifact. Normal thin common bile duct. No intrahepatic biliary dilatation. LIVER: Hepatomegaly. Multifocal ill-defined mass is mildly increased signal on T2 weighted images and decreased T1 weighted signal. Suspicious for metastatic disease. This correlates with recent abdominal/ pelvic CT of 04/21/2017. GALLBLADDER: Unremarkable. SPLEEN: Splenomegaly. The spleen measures 17.7 cm in greatest dimension. PANCREAS: Unremarkable. ADRENALS: Unremarkable. KIDNEYS: Unremarkable. AORTA: No aneurysm. ASCITES: Mild ascites OTHER FINDINGS: None. IMPRESSION: No evidence of biliary obstruction. Numerous ill-defined hepatic masses suspicious for metastatic disease. Hepatic splenomegaly. Ascites.
[2017-05-25] MEDS: Mag&Al/Simet/Diphen/Lido 237 ML KIT PO PRN ×2 (17:17→21:06)
--- NOTE | 2017-05-25 22:26 | CP.PCM.PN ---
Subjective - Date & Time of Evaluation Date of Evaluation: 05/25/17 Time of Evaluation: 11:45 - Subjective Subjective: Feels uncomfortable with abdominal/scrotal swelling Objective - Vital Signs/Intake and Output Vital Signs (last 24 hours): Temp Pulse Resp BP Pulse Ox 97.4 F L 90 29 H 100/58 L 97 05/25/17 20:00 05/25/17 21:16 05/25/17 20:00 05/25/17 21:16 05/25/17 20:00 - Medications Medications: Current Medications Acetaminophen (Tylenol 325mg Tab) 650 mg PO Q4 PRN PRN Reason: Pain, Mild (1-3) Last Admin: 05/24/17 10:49 Dose: 650 mg Acetaminophen (Tylenol 325mg Tab) 650 mg PO Q4 PRN PRN Reason: Fever >100.4 F Last Admin: 05/25/17 15:44 Dose: 650 mg Atovaquone (Mepron) 1,500 mg PO DAILY [facility] PRN Reason: Protocol Last Admin: 05/25/17 10:00 Dose: 1,500 mg Furosemide (Lasix) 40 mg IVP DAILY [facility] Last Admin: 05/25/17 10:49 Dose: 40 mg Home Med (Patient's Own Medication) 1 unit PO DAILY [facility] Last Admin: 05/25/17 10:00 Dose: 1 unit Meropenem 1 gm/ Sodium (Chloride) 100 mls @ 100 mls/hr IVPB Q8 [facility] PRN Reason: Protocol Last Admin: 05/25/17 17:18 Dose: 100 mls/hr Vancomycin HCl 1 gm/ Sodium (Chloride) 250 mls @ 125 mls/hr IVPB DAILY [facility] Last Admin: 05/25/17 11:00 Dose: 125 mls/hr Lidocaine (Lidoderm) 1 ea TD DAILY [facility] Last Admin: 05/25/17 10:00 Dose: 1 ea Metoprolol Tartrate (Lopressor) 25 mg PO Q12 [facility] Last Admin: 05/25/17 21:16 Dose: Not Given Morphine Sulfate (Morphine) 2 mg IVP Q4 PRN PRN Reason: Pain, moderate (4-7) Last Admin: 05/23/17 14:45 Dose: 2 mg Nystatin (Nystatin Oral Susp) 5 ml PO QID [facility] Last Admin: 05/25/17 21:06 Dose: 5 ml Ondansetron HCl (Zofran Inj) 4 mg IVP Q6 PRN PRN Reason: Nausea/Vomiting Saliva Substitute (First Magic Mouthwash) 5 ml PO Q4 PRN PRN Reason: Sore Throat Last Admin: 05/25/17 21:06 Dose: 5 ml Spironolactone (Aldactone) 25 mg PO BID [facility] Last Admin: 05/25/17 17:18 Dose: 25 mg - Labs Labs: 05/25/17 04:45 05/25/17 04:45 - Head Exam Head Exam: ATRAUMATIC - Eye Exam Eye Exam: Scleral icterus - ENT Exam ENT Exam: Mucous Membranes Dry - Respiratory Exam Respiratory Exam: NORMAL BREATHING PATTERN - Cardiovascular Exam Cardiovascular Exam: +S1, +S2 - GI/Abdominal Exam GI & Abdominal Exam: Normal Bowel Sounds - Extremities Exam Extremities Exam: Pedal Edema - Neurological Exam Neurological Exam: Oriented x3 - Psychiatric Exam Psychiatric exam: Normal Affect, Normal Mood - Skin Skin Exam: Warm Assessment and Plan (1) Pancytopenia Assessment & Plan: secondary to chemotherapy, HIV/AIDS severe neutropenia; GCSF redosed today and on empiric antibiotic coverage for platelet transfusion today Status: Acute (2) Hodgkin's lymphoma Assessment & Plan: stage IVb s/p ABVD chemotherapy repeat uric acid in AM Status: Acute
[2017-05-26] MEDS: Meropenem 1 GM in Sodium Chloride 0.9% 100 ML IVPB SCH ×3 (00:20→17:02)
[2017-05-26] MEDS ORDERED: Lactated Ringer's 250 ML IV SCH (03:00)
[2017-05-26] MEDS ORDERED: Lactated Ringer's 1,000 ML IV SCH (03:30)
[2017-05-26 05:26] LABS: HEMOGLOBIN 10.4 g/dL (12.0-18.0); MEAN CORPUSCULAR HEMOGLOBIN 25.9 pg (27.0-31.0); MEAN CORPUSCULAR HGB CONC 32.4 g/dL (33.0-37.0); RBC 4.03 Mil/uL (4.40-5.90); RED CELL DISTRIBUTION WIDTH 19.2 % (11.5-14.5)
[2017-05-26 05:30] LABS: CALCIUM 8.4 mg/dL (8.4-10.2)
[2017-05-26 05:32] LABS: ABG ALLEN TEST YES; ARTERIAL BLOOD GAS HCO3 22.3 mmol/L (21-28); ARTERIAL BLOOD GAS HEMOGLOBIN 8.5 g/dL (11.7-17.4); ARTERIAL BLOOD GAS O2 CAPACITY 11.7 mL/dL (16-24); ARTERIAL BLOOD GAS O2 CONTENT 11.8 ML/dL (15-23); ARTERIAL BLOOD GAS O2 SAT 100.8 % (95-98); ARTERIAL BLOOD GAS PCO2 26 mm/Hg (35-45); ARTERIAL BLOOD GAS PH 7.48 (7.35-7.45); ARTERIAL BLOOD GAS PO2 90 mm/Hg (80-100); ARTERIAL BLOOD GAS TCO2 20.2 mmol/L (22-28)
[2017-05-26 05:33] LABS: WHITE BLOOD COUNT 0.2 K/uL (4.8-10.8)
[2017-05-26] MEDS: BIKTARVY PO SCH (08:16)
[2017-05-26] MEDS: Mag&Al/Simet/Diphen/Lido 237 ML KIT PO PRN (08:16)
[2017-05-26] MEDS: Nystatin 100,000 Units/ml Oral Susp 5 ml UD PO SCH ×4 (08:17→21:21)
[2017-05-26] MEDS: Lidocaine 5% Patch TD SCH (08:17)
[2017-05-26] MEDS: Atovaquone 750 mg/5 ml Susp UD PO SCH (08:18)
--- NOTE | 2017-05-26 08:27 | RAD ---
HISTORY: Tachypnea COMPARISON: Portable chest 05/23/2017. FINDINGS: MediPort unchanged in position. LUNGS: Diminished bilateral infrahilar/ basilar infiltrates. Inspiratory volume remains somewhat limited. PLEURA: No significant pleural effusion identified, no pneumothorax apparent. CARDIOVASCULAR: Normal. OSSEOUS STRUCTURES: No significant abnormalities. VISUALIZED UPPER ABDOMEN: Normal. OTHER FINDINGS: None. IMPRESSION: Improving bilateral infiltrates at the infrahilar/medial basilar spaces with inspiratory volume remaining limited.
--- NOTE | 2017-05-26 09:41 | CP.PCM.PN ---
<Rosa Pizano - Last Filed: 05/26/17 09:41> Subjective - Date & Time of Evaluation Date of Evaluation: 05/26/17 Objective - Vital Signs/Intake and Output Vital Signs (last 24 hours): Temp Pulse Resp BP Pulse Ox 100.6 F H 129 H 28 H 120/70 98 05/26/17 08:00 05/26/17 09:00 05/26/17 09:00 05/26/17 09:00 05/26/17 09:00 Intake and Output: 05/26/17 05/26/17 06:59 18:59 Intake Total 0 275 Output Total 500 Balance 0 -225 - Medications Medications: Current Medications Acetaminophen (Tylenol 325mg Tab) 650 mg PO Q4 PRN PRN Reason: Pain, Mild (1-3) Last Admin: 05/24/17 10:49 Dose: 650 mg Acetaminophen (Tylenol 325mg Tab) 650 mg PO Q4 PRN PRN Reason: Fever >100.4 F Last Admin: 05/25/17 15:44 Dose: 650 mg Atovaquone (Mepron) 1,500 mg PO DAILY [facility] PRN Reason: Protocol Last Admin: 05/26/17 08:18 Dose: 1,500 mg Furosemide (Lasix) 40 mg IVP DAILY [facility] Last Admin: 05/26/17 08:18 Dose: 40 mg Home Med (Patient's Own Medication) 1 unit PO DAILY [facility] Last Admin: 05/26/17 08:16 Dose: 1 unit Meropenem 1 gm/ Sodium (Chloride) 100 mls @ 100 mls/hr IVPB Q8 [facility] PRN Reason: Protocol Last Admin: 05/26/17 08:14 Dose: 100 mls/hr Vancomycin HCl 1 gm/ Sodium (Chloride) 250 mls @ 125 mls/hr IVPB DAILY [facility] Last Admin: 05/26/17 08:45 Dose: 125 mls/hr Lactated Ringer's (Lactated Ringer's 500ml) 250 mls @ 100 mls/hr IV .Q2H30M [facility] Lidocaine (Lidoderm) 1 ea TD DAILY [facility] Last Admin: 05/26/17 08:17 Dose: 1 ea Metoprolol Tartrate (Lopressor) 25 mg PO Q12 [facility] Last Admin: 05/26/17 08:15 Dose: 25 mg Morphine Sulfate (Morphine) 2 mg IVP Q4 PRN PRN Reason: Pain, moderate (4-7) Last Admin: 05/23/17 14:45 Dose: 2 mg Nystatin (Nystatin Oral Susp) 5 ml PO QID [facility] Last Admin: 05/26/17 08:17 Dose: 5 ml Ondansetron HCl (Zofran Inj) 4 mg IVP Q6 PRN PRN Reason: Nausea/Vomiting Saliva Substitute (First Magic Mouthwash) 5 ml PO Q4 PRN PRN Reason: Sore Throat Last Admin: 05/26/17 08:16 Dose: 5 ml Spironolactone (Aldactone) 25 mg PO BID [facility] Last Admin: 05/26/17 08:16 Dose: 25 mg - Labs Labs: 05/26/17 04:20 05/26/17 04:20 <Amador Méndez - Last Filed: 05/26/17 12:56> Subjective - Date & Time of Evaluation Time of Evaluation: 07:05 - Subjective Subjective: ICU day 3. Patient seen and examined in ICU this morning. no acute events during night. Patient reports feeling more weak today, more tachypneic today. Anasarca, jaundice. Afebrile now. c/ on neutropenic precautions. Objective - Vital Signs/Intake and Output Vital Signs (last 24 hours): Temp Pulse Resp BP Pulse Ox 100.6 F H 106 H 42 H 113/56 L 98 05/26/17 12:00 05/26/17 12:00 05/26/17 12:00 05/26/17 12:00 05/26/17 12:00 Intake and Output: 05/26/17 05/26/17 06:59 18:59 Intake Total 0 865 Output Total 700 Balance 0 165 - Medications Medications: Current Medications Acetaminophen (Tylenol 650mg/20.3ml Solution Ud) 650 mg PO Q4 PRN PRN Reason: Temperature Atovaquone (Mepron) 1,500 mg PO DAILY [facility] PRN Reason: Protocol Last Admin: 05/26/17 08:18 Dose: 1,500 mg Furosemide (Lasix) 40 mg IVP DAILY [facility] Last Admin: 05/26/17 08:18 Dose: 40 mg Home Med (Patient's Own Medication) 1 unit PO DAILY [facility] Last Admin: 05/26/17 08:16 Dose: 1 unit Meropenem 1 gm/ Sodium (Chloride) 100 mls @ 100 mls/hr IVPB Q8 [facility] PRN Reason: Protocol Last Admin: 05/26/17 08:14 Dose: 100 mls/hr Vancomycin HCl 1 gm/ Sodium (Chloride) 250 mls @ 125 mls/hr IVPB DAILY [facility] Last Admin: 05/26/17 08:45 Dose: 125 mls/hr Lactated Ringer's (Lactated Ringer's 500ml) 250 mls @ 100 mls/hr IV .Q2H30M [facility] Lidocaine (Lidoderm) 1 ea TD DAILY [facility] Last Admin: 05/26/17 08:17 Dose: 1 ea Metoprolol Tartrate (Lopressor) 25 mg PO Q12 [facility] Last Admin: 05/26/17 08:15 Dose: 25 mg Morphine Sulfate (Morphine) 2 mg IVP Q4 PRN PRN Reason: Pain, moderate (4-7) Last Admin: 05/23/17 14:45 Dose: 2 mg Nystatin (Nystatin Oral Susp) 5 ml PO QID [facility] Last Admin: 05/26/17 12:30 Dose: 5 ml Ondansetron HCl (Zofran Inj) 4 mg IVP Q6 PRN PRN Reason: Nausea/Vomiting Saliva Substitute (First Magic Mouthwash) 5 ml PO Q4 PRN PRN Reason: Sore Throat Last Admin: 05/26/17 08:16 Dose: 5 ml Spironolactone (Aldactone) 25 mg PO BID [facility] Last Admin: 05/26/17 08:16 Dose: 25 mg - Labs Labs: 05/26/17 04:20 05/26/17 04:20
--- NOTE | 2017-05-26 10:39 | CP.PCM.PN ---
Subjective - Date & Time of Evaluation Date of Evaluation: 05/26/17 Time of Evaluation: 10:37 - Subjective Subjective: Patient and bed appear to be very jaundice. Patient appears to be in pain Patient appeared to be edematous. Complaining of shortness of breath and diffuse swelling. Objective - Vital Signs/Intake and Output Vital Signs (last 24 hours): Temp Pulse Resp BP Pulse Ox 102.9 F H 120 H 45 H 113/60 99 05/26/17 10:12 05/26/17 10:00 05/26/17 10:25 05/26/17 10:00 05/26/17 10:00 Intake and Output: 05/26/17 05/26/17 06:59 18:59 Intake Total 0 275 Output Total 500 Balance 0 -225 - Medications Medications: Current Medications Acetaminophen (Tylenol 650mg/20.3ml Solution Ud) 650 mg PO Q4 PRN PRN Reason: Temperature Atovaquone (Mepron) 1,500 mg PO DAILY [facility] PRN Reason: Protocol Last Admin: 05/26/17 08:18 Dose: 1,500 mg Furosemide (Lasix) 40 mg IVP DAILY [facility] Last Admin: 05/26/17 08:18 Dose: 40 mg Home Med (Patient's Own Medication) 1 unit PO DAILY [facility] Last Admin: 05/26/17 08:16 Dose: 1 unit Meropenem 1 gm/ Sodium (Chloride) 100 mls @ 100 mls/hr IVPB Q8 [facility] PRN Reason: Protocol Last Admin: 05/26/17 08:14 Dose: 100 mls/hr Vancomycin HCl 1 gm/ Sodium (Chloride) 250 mls @ 125 mls/hr IVPB DAILY [facility] Last Admin: 05/26/17 08:45 Dose: 125 mls/hr Lactated Ringer's (Lactated Ringer's 500ml) 250 mls @ 100 mls/hr IV .Q2H30M [facility] Lidocaine (Lidoderm) 1 ea TD DAILY [facility] Last Admin: 05/26/17 08:17 Dose: 1 ea Metoprolol Tartrate (Lopressor) 25 mg PO Q12 [facility] Last Admin: 05/26/17 08:15 Dose: 25 mg Morphine Sulfate (Morphine) 2 mg IVP Q4 PRN PRN Reason: Pain, moderate (4-7) Last Admin: 05/23/17 14:45 Dose: 2 mg Nystatin (Nystatin Oral Susp) 5 ml PO QID [facility] Last Admin: 05/26/17 08:17 Dose: 5 ml Ondansetron HCl (Zofran Inj) 4 mg IVP Q6 PRN PRN Reason: Nausea/Vomiting Saliva Substitute (First Magic Mouthwash) 5 ml PO Q4 PRN PRN Reason: Sore Throat Last Admin: 05/26/17 08:16 Dose: 5 ml Spironolactone (Aldactone) 25 mg PO BID [facility] Last Admin: 05/26/17 08:16 Dose: 25 mg - Labs Labs: 05/26/17 04:20 05/26/17 04:20 - Constitutional Appears: No Acute Distress - ENT Exam ENT Exam: Mucous Membranes Moist - Neck Exam Neck Exam: Lymphadenopathy - Respiratory Exam Respiratory Exam: Rhonchi. absent: Chest Wall Tenderness - Cardiovascular Exam Cardiovascular Exam: absent: Gallop, JVD, Rubs - GI/Abdominal Exam GI & Abdominal Exam: Distended, Tenderness - Extremities Exam Extremities Exam: absent: Calf Tenderness - Back Exam Back Exam: absent: CVA tenderness (L), CVA tenderness (R) - Neurological Exam Neurological Exam: Altered - Psychiatric Exam Psychiatric exam: Depressed - Skin Skin Exam: absent: Cyanosis Assessment and Plan (1) HIV disease Status: Acute (2) Hodgkin's lymphoma Status: Acute (3) AIDS (acquired immunodeficiency syndrome), CD4 <=200 Status: Acute (4) Anasarca Status: Acute (5) Hepatorenal syndrome Assessment & Plan: Patient appeared to have hepatorenal syndrome versus acute kidney injury. #2 patient extremely jaundice with elevation of bilirubin and abnormal liver enzyme. #3 masses ascites including very large hydrocele/anasarca. #4 lymphomaHodgkin disease. #5 metastatic disease. #6 anemia. The plan stat spot urine for sodium osmolality and creatinine. Cut down immediately intravenous IV fluid to 10 mL/h. Continue on Lasix perhaps twice a day and increase Aldactone 50 mg twice a day. Fluid restriction. 25% albumin to be given every 8 hours for the next 24 hours. I spoke to the family in great detail with very poor prognosis. Discussed with the church musician. Status: Acute
--- NOTE | 2017-05-26 11:48 | CP.CCUPN ---
CCU Subjective - Physician Review Subjective (Free Text): Very tachypneic this AM with RR approaching 50, up to 70! SPo2 at 94% on nasal cannula. Subsequently placed on HFNC and tolerating 20 LPM at 40% oxygen. Still intermittently febrile at 102.6F max so far today. Other VS and I/Os reviewed. HR 120s in sinus, SBP 110s. On RL now at 100ml /hr. ROS: No other pertinent negs or positives on 10+ system review. PMSFH: All other Nursing and physician documentation reviewed to date; no new pertinent info noted relevant to current medical problems. EXAM- HEENT: no icterus, no gaze preference, pupils 3 mm equal, ++ icterus NECK: No JVD, supple, carotids equal upstroke bilat/no bruits CHEST: decreased BS bases, no wheezes audible HEART: regular distant, S1S2, no rubs. ABD: soft, + distention, + tenderness across periumbilical area, BS hypoactive EXT: ++edema bilat with anasarca and scrotal edema. No peripheral/ digital cyanosis, no calf tenderness or palpable cords, distal pulses intact and symmetrical. NEURO: no gross focal motor deficits SKIN: no rashes, warm and dry. LABS: WBC= 0.2 HGB= 10.4 PLTs= 31 K Na= 133 K= 4.3 CL= 99 HCO3= 18 BUN/Cr= 61/1.6 BS= 121 INR/ Coags: none ordered this admission. CXR: no new consolidation. MRCP results reviewed, no biliary tree obstruction, multiple masses seen in the liver. IMPRESSION / MAJOR PROBLEMS NOW: 1. Neutropenia with fevers, without Shock state, r/o bacteremia 2. Jaundice, with Alk Phos elevation: 2 infiltrative / mets disease. 3. Hodgkins Lymphoma, s/p Chemo tx 4. HIV disease with h/o AIDS PLAN: 1. HFNC support. 2. Bloodwork today reflects hemoconcentration. Discussed with Nephro: will try intravascular volume repletion with albumin. Lasix /Aldactone prn. 3. Check Coags, correct any coagulopathy and may need platelets above 50K and WBC near normal before any invasive procedure such as abdominal paracentesis. 4. Repeat PCT level: is it trending downward? 5. Consider NGT for enteral nutritional support. 6. Need discussion with patient, family and medical team regarding Advance Directives. CCU Objective - Vital Signs / Intake & Output Vital Signs (Last 4 hours): Vital Signs Temp Pulse Resp BP Pulse Ox 05/26/17 10:25 45 H 05/26/17 10:12 102.9 F H 05/26/17 10:00 102.9 F H 120 H 46 H 113/60 99 05/26/17 09:00 129 H 28 H 120/70 98 05/26/17 08:18 118/66 05/26/17 08:15 139 H 118/66 05/26/17 08:00 100.6 F H 136 H 43 H 118/66 97 Intake and Output (Last 8hrs): Intake & Output 05/25/17 05/26/17 05/26/17 22:59 06:59 14:59 Intake Total 0 275 Output Total 500 Balance 0 -225 Weight 184 lb Intake: IV 0 250 Oral 25 Output: Urine 500 Urine, Voided 500
--- NOTE | 2017-05-26 12:40 | CP.PCM.PN ---
Subjective - Date & Time of Evaluation Date of Evaluation: 05/26/17 Time of Evaluation: 08:00 - Subjective Subjective: GI Fellow PGY4 Progress Note Pt seen and evaluated at bedside, pt critically ill, tachypneic with anasarca and diffuse edema. No BM, decreased appetite. Febrile ROS: A 12pt ROS was negative except as above. Objective - Vital Signs/Intake and Output Vital Signs (last 24 hours): Temp Pulse Resp BP Pulse Ox 100.6 F H 106 H 42 H 113/56 L 98 05/26/17 12:00 05/26/17 12:00 05/26/17 12:00 05/26/17 12:00 05/26/17 12:00 Intake and Output: 05/26/17 05/26/17 06:59 18:59 Intake Total 0 865 Output Total 700 Balance 0 165 - Medications Medications: Current Medications Acetaminophen (Tylenol 650mg/20.3ml Solution Ud) 650 mg PO Q4 PRN PRN Reason: Temperature Atovaquone (Mepron) 1,500 mg PO DAILY [facility] PRN Reason: Protocol Last Admin: 05/26/17 08:18 Dose: 1,500 mg Furosemide (Lasix) 40 mg IVP DAILY [facility] Last Admin: 05/26/17 08:18 Dose: 40 mg Home Med (Patient's Own Medication) 1 unit PO DAILY [facility] Last Admin: 05/26/17 08:16 Dose: 1 unit Meropenem 1 gm/ Sodium (Chloride) 100 mls @ 100 mls/hr IVPB Q8 [facility] PRN Reason: Protocol Last Admin: 05/26/17 08:14 Dose: 100 mls/hr Vancomycin HCl 1 gm/ Sodium (Chloride) 250 mls @ 125 mls/hr IVPB DAILY [facility] Last Admin: 05/26/17 08:45 Dose: 125 mls/hr Lactated Ringer's (Lactated Ringer's 500ml) 250 mls @ 100 mls/hr IV .Q2H30M [facility] Lidocaine (Lidoderm) 1 ea TD DAILY [facility] Last Admin: 05/26/17 08:17 Dose: 1 ea Metoprolol Tartrate (Lopressor) 25 mg PO Q12 [facility] Last Admin: 05/26/17 08:15 Dose: 25 mg Morphine Sulfate (Morphine) 2 mg IVP Q4 PRN PRN Reason: Pain, moderate (4-7) Last Admin: 05/23/17 14:45 Dose: 2 mg Nystatin (Nystatin Oral Susp) 5 ml PO QID [facility] Last Admin: 05/26/17 12:30 Dose: 5 ml Ondansetron HCl (Zofran Inj) 4 mg IVP Q6 PRN PRN Reason: Nausea/Vomiting Saliva Substitute (First Magic Mouthwash) 5 ml PO Q4 PRN PRN Reason: Sore Throat Last Admin: 05/26/17 08:16 Dose: 5 ml Spironolactone (Aldactone) 25 mg PO BID [facility] Last Admin: 05/26/17 08:16 Dose: 25 mg - Labs Labs: 05/26/17 04:20 05/26/17 04:20 - Constitutional Appears: In Acute Distress, Cachectic, Chronically Ill - Head Exam Head Exam: ATRAUMATIC, NORMAL INSPECTION, NORMOCEPHALIC - Eye Exam Eye Exam: EOMI, PERRL, Scleral icterus - ENT Exam ENT Exam: Mucous Membranes Dry - Neck Exam Neck Exam: Full ROM, Normal Inspection - Respiratory Exam Respiratory Exam: Decreased Breath Sounds, Rales, Wheezes, Respiratory Distress - Cardiovascular Exam Cardiovascular Exam: Tachycardia, +S1, +S2 - GI/Abdominal Exam GI & Abdominal Exam: Distended, Firm, Tenderness, Hypoactive Bowel Sounds - Extremities Exam Extremities Exam: Pedal Edema - Neurological Exam Neurological Exam: Alert, Awake, Oriented x3 - Psychiatric Exam Psychiatric exam: Anxious - Skin Skin Exam: Dry, Intact, Warm Additional comments: jaundice Assessment and Plan - Assessment and Plan (Free Text) Assessment: This is a 37yM presenting with fevers and tachycardia after chemotherapy. 1. AIDs 2. Hodgkins Lymphoma 3. Elevated LFTs, hyperbilirubinemia 4. Anasarca 5. Thrombocytopenia 6. ADONAY Plan: -Continue supportive care, pt ill appearing, jaundice, cachectic, anasarca -Pt with elevated Alkaline phos/TBili likely from chemotherapy and tumor burden/ infiltrative liver -MRCP w/o contrast with ADONAY, negative for any obstruction -Monitor CMP, CBC -Hepatitis panel negative, AFP wnl -Will order Abd Xray to r/o any obstruction -Diet as tolerated -Further medical care per primary team and oncology -Will continue to follow closely
--- NOTE | 2017-05-26 13:20 | CP.PCM.PN ---
Subjective - Date & Time of Evaluation Date of Evaluation: 05/26/17 Time of Evaluation: 12:20 - Subjective Subjective: Feels more short of breath and distended today End of life discussion occurred with the family medicine team, myself, the patient, his sister and mother. The pt wants to think about code status and remains full code. Objective - Vital Signs/Intake and Output Vital Signs (last 24 hours): Temp Pulse Resp BP Pulse Ox 100.6 F H 106 H 42 H 113/56 L 98 05/26/17 12:00 05/26/17 12:00 05/26/17 12:00 05/26/17 12:00 05/26/17 12:00 Intake and Output: 05/26/17 05/26/17 06:59 18:59 Intake Total 0 865 Output Total 700 Balance 0 165 - Medications Medications: Current Medications Acetaminophen (Tylenol 650mg/20.3ml Solution Ud) 650 mg PO Q4 PRN PRN Reason: Temperature Atovaquone (Mepron) 1,500 mg PO DAILY [facility] PRN Reason: Protocol Last Admin: 05/26/17 08:18 Dose: 1,500 mg Furosemide (Lasix) 40 mg IVP DAILY [facility] Last Admin: 05/26/17 08:18 Dose: 40 mg Home Med (Patient's Own Medication) 1 unit PO DAILY [facility] Last Admin: 05/26/17 08:16 Dose: 1 unit Meropenem 1 gm/ Sodium (Chloride) 100 mls @ 100 mls/hr IVPB Q8 [facility] PRN Reason: Protocol Last Admin: 05/26/17 08:14 Dose: 100 mls/hr Vancomycin HCl 1 gm/ Sodium (Chloride) 250 mls @ 125 mls/hr IVPB DAILY [facility] Last Admin: 05/26/17 08:45 Dose: 125 mls/hr Lactated Ringer's (Lactated Ringer's 500ml) 250 mls @ 100 mls/hr IV .Q2H30M [facility] Lidocaine (Lidoderm) 1 ea TD DAILY [facility] Last Admin: 05/26/17 08:17 Dose: 1 ea Metoprolol Tartrate (Lopressor) 25 mg PO Q12 [facility] Last Admin: 05/26/17 08:15 Dose: 25 mg Morphine Sulfate (Morphine) 2 mg IVP Q4 PRN PRN Reason: Pain, moderate (4-7) Last Admin: 05/23/17 14:45 Dose: 2 mg Nystatin (Nystatin Oral Susp) 5 ml PO QID [facility] Last Admin: 05/26/17 12:30 Dose: 5 ml Ondansetron HCl (Zofran Inj) 4 mg IVP Q6 PRN PRN Reason: Nausea/Vomiting Saliva Substitute (First Magic Mouthwash) 5 ml PO Q4 PRN PRN Reason: Sore Throat Last Admin: 05/26/17 08:16 Dose: 5 ml Spironolactone (Aldactone) 25 mg PO BID [facility] Last Admin: 05/26/17 08:16 Dose: 25 mg - Labs Labs: 05/26/17 04:20 05/26/17 04:20 - Head Exam Head Exam: ATRAUMATIC - Eye Exam Eye Exam: Scleral icterus - ENT Exam ENT Exam: Mucous Membranes Dry - Respiratory Exam Respiratory Exam: NORMAL BREATHING PATTERN - Cardiovascular Exam Cardiovascular Exam: +S1, +S2 - GI/Abdominal Exam GI & Abdominal Exam: Normal Bowel Sounds - Extremities Exam Extremities Exam: Pedal Edema - Psychiatric Exam Psychiatric exam: Anxious - Skin Skin Exam: Warm Assessment and Plan (1) Pancytopenia Assessment & Plan: secondary to chemotherapy and HIV/AIDS on GCSF, neutropenic precautions, empiric antibiotics s/p 1 bag platelet transfusion yesterday transfusion support prn Status: Acute (2) Hodgkin's lymphoma Assessment & Plan: stage IVb s/p 1 dose ABVD chemotherapy Status: Acute
--- NOTE | 2017-05-26 14:12 | CP.PCM.PN ---
Subjective - Date & Time of Evaluation Date of Evaluation: 05/26/17 Time of Evaluation: 07:36 - Subjective Subjective: ICU day 3. Patient seen and examined in ICU this morning. no acute events during night. Patient reports feeling more weak today, more tachypneic today and sob. Anasarca , jaundice. Afebrile now. c/ on neutropenic precautions. We meet with his sister and mother today, hotel desk clerk used: [employer] #[id number], discussed in detail about very poor prognosis, palliative care and end of life. Late discussion about end of life with patient, family and Dr Palmer, patient remains full code. Patient assign his mother as next of kin. Information was provided, questions answered family and pt verbalizes understanding. Objective - Vital Signs/Intake and Output Vital Signs (last 24 hours): Temp Pulse Resp BP Pulse Ox 100.6 F H 96 H 37 H 112/69 98 05/26/17 12:00 05/26/17 13:00 05/26/17 13:00 05/26/17 13:00 05/26/17 13:00 Intake and Output: 05/26/17 05/26/17 06:59 18:59 Intake Total 0 865 Output Total 700 Balance 0 165 - Medications Medications: Current Medications Acetaminophen (Tylenol 650mg/20.3ml Solution Ud) 650 mg PO Q4 PRN PRN Reason: Temperature Atovaquone (Mepron) 1,500 mg PO DAILY [facility] PRN Reason: Protocol Last Admin: 05/26/17 08:18 Dose: 1,500 mg Furosemide (Lasix) 40 mg IVP DAILY [facility] Last Admin: 05/26/17 08:18 Dose: 40 mg Home Med (Patient's Own Medication) 1 unit PO DAILY [facility] Last Admin: 05/26/17 08:16 Dose: 1 unit Meropenem 1 gm/ Sodium (Chloride) 100 mls @ 100 mls/hr IVPB Q8 [facility] PRN Reason: Protocol Last Admin: 05/26/17 08:14 Dose: 100 mls/hr Vancomycin HCl 1 gm/ Sodium (Chloride) 250 mls @ 125 mls/hr IVPB DAILY [facility] Last Admin: 05/26/17 08:45 Dose: 125 mls/hr Lactated Ringer's (Lactated Ringer's 500ml) 250 mls @ 100 mls/hr IV .Q2H30M [facility] Lidocaine (Lidoderm) 1 ea TD DAILY [facility] Last Admin: 05/26/17 08:17 Dose: 1 ea Metoprolol Tartrate (Lopressor) 25 mg PO Q12 [facility] Last Admin: 05/26/17 08:15 Dose: 25 mg Morphine Sulfate (Morphine) 2 mg IVP Q4 PRN PRN Reason: Pain, moderate (4-7) Last Admin: 05/23/17 14:45 Dose: 2 mg Nystatin (Nystatin Oral Susp) 5 ml PO QID [facility] Last Admin: 05/26/17 12:30 Dose: 5 ml Ondansetron HCl (Zofran Inj) 4 mg IVP Q6 PRN PRN Reason: Nausea/Vomiting Saliva Substitute (First Magic Mouthwash) 5 ml PO Q4 PRN PRN Reason: Sore Throat Last Admin: 05/26/17 08:16 Dose: 5 ml Spironolactone (Aldactone) 25 mg PO BID [facility] Last Admin: 05/26/17 08:16 Dose: 25 mg - Labs Labs: 05/26/17 04:20 05/26/17 04:20 - Constitutional Appears: In Acute Distress, Cachectic, Chronically Ill - Eye Exam Eye Exam: EOMI, PERRL, Scleral icterus - ENT Exam ENT Exam: Mucous Membranes Dry - Respiratory Exam Respiratory Exam: Accessory Muscle Use, Clear to Ausculation Bilateral, Respiratory Distress - Cardiovascular Exam Cardiovascular Exam: Tachycardia, REGULAR RHYTHM, +S1, +S2 - GI/Abdominal Exam GI & Abdominal Exam: Distended, Tenderness - Exam Exam: Scrotal Swelling - Extremities Exam Extremities Exam: Tenderness Additional comments: swelling b/l - Neurological Exam Neurological Exam: Alert, Awake, Oriented x3 - Psychiatric Exam Psychiatric exam: Anxious - Skin Additional comments: Jaundiced Assessment and Plan - Assessment and Plan (Free Text) Assessment: 37yo M with PMHx of HIV/AIDS and Hodgkins Lymphoma stage 4 s/p chemo cycle #1 admitted for persistent fevers. Continue spike fevers. Anasarca, Hyperbilirubinemia. Tachypnea. ICU day 3 Plan: c/w empiric IV abx and opportunistic infections prophylaxis . Fluids restriction, c/w IV Lasix. 1- Fevers, persistent - most likely 2/2 to malignancy - Tylenol prn - ID on board, Recs appreciated -c/w Vancomycin and Meropenem IV day 9 (prophylaxis gram positive and gram negative microorganisms) - blood and urine culture negative - CXR 05/26: improving in b/l lower infiltrates, no pleural effusions noted. 2- S4 lymphoma - s/p chemo cycle #1 05/20/17: Adriamycin/Bleomacyn/Vinblastine/Decarbazine - Hematology/Onc on board, Recs appreciated - Uric acid 5 (wnl) 05/26 3- oral thrush - c/w PO nystatin - magic mouth wash 4- Tachycardia/Tachypnea - RR 42 - started HFNC 20 LPM at 40% oxygen - c/w metoprolol succ 25 mg PO daily 5- Anarsarca - Nephro Dr Graves recs appreciated: -strict oral fluids restriction -d/c IV fluids -c/w lasix 40mg IV daily -start Aldactone 50mg BID -albumin repletion 6- Pancytopenia - most likely 2/2 malignancy - transfuse pRBC if Hgb <8, FFPE if plt<10 - Granix daily for 3 days 7- Hyponatremia, resolved - likely related to the massive ascites dilutional - Na 133 8- Elevated LFTs/bilirubin with liver mets - liver US wnl - TB 14.0 - GI Dr Austin on board - secondary to chemo/malignancy - MRCP 05/25: negative for biliary obstruction. 9- HIV/AIDS - lymphocyte panel on 05/17/17 - CD4 count <20, CD4 6% - C/W current HIV treatment (pt owns medications, started Biktarvy once chemo started) - per ID stopped azithro 1x weekly (last dose 05/18/17) - c/w Mepron (atovaquone) 1500 mg PO daily (PCP prophylaxis) 10- DVT prophylaxis -no pharmacological agents 2/2 thrombocytopenia -SCDs 11- Code -Full, confirmed with patient 05/26/17
--- NOTE | 2017-05-26 14:21 | RAD ---
HISTORY: r/o obstruction COMPARISON: No prior. FINDINGS: BOWEL: Gas within multiple small bowel loops, some mildly dilated. . Gas within particularly distended bowel loop right lower quadrant, indeterminate whether large or small bowel. Cannot rule out early mechanical bowel obstruction. Followup advised. BONES: Normal. OTHER FINDINGS: None. IMPRESSION: Dilated bowel loops, possibly reflecting early mechanical small bowel obstruction. Followup advised.
--- NOTE | 2017-05-26 15:03 | CP.PCM.PN ---
Subjective - Date & Time of Evaluation Date of Evaluation: 05/26/17 Time of Evaluation: 15:01 - Subjective Subjective: ID note- Pt. seen and examined today in ICU with his mother at his bedside. pt. slightly more awake today . He states he was very sob earlier and now he is on high flow oxygen and feels better on this. abdomen remains distended but less than yesterday. He denies any diarrhea today. Objective - Vital Signs/Intake and Output Vital Signs (last 24 hours): Temp Pulse Resp BP Pulse Ox 100.6 F H 98 H 38 H 106/66 98 05/26/17 12:00 05/26/17 14:00 05/26/17 14:00 05/26/17 14:00 05/26/17 14:00 Intake and Output: 05/26/17 05/26/17 06:59 18:59 Intake Total 0 985 Output Total 700 Balance 0 285 - Medications Medications: Current Medications Acetaminophen (Tylenol 650mg/20.3ml Solution Ud) 650 mg PO Q4 PRN PRN Reason: Temperature Atovaquone (Mepron) 1,500 mg PO DAILY DARRION PRN Reason: Protocol Last Admin: 05/26/17 08:18 Dose: 1,500 mg Furosemide (Lasix) 40 mg IVP DAILY DARRION Last Admin: 05/26/17 08:18 Dose: 40 mg Home Med (Patient's Own Medication) 1 unit PO DAILY DARRION Last Admin: 05/26/17 08:16 Dose: 1 unit Meropenem 1 gm/ Sodium (Chloride) 100 mls @ 100 mls/hr IVPB Q8 DARRION PRN Reason: Protocol Last Admin: 05/26/17 08:14 Dose: 100 mls/hr Vancomycin HCl 1 gm/ Sodium (Chloride) 250 mls @ 125 mls/hr IVPB DAILY DARRION Last Admin: 05/26/17 08:45 Dose: 125 mls/hr Lactated Ringer's (Lactated Ringer's 500ml) 250 mls @ 100 mls/hr IV .Q2H30M PENDING SALE TO [facility] Lidocaine (Lidoderm) 1 ea TD DAILY [facility] Last Admin: 05/26/17 08:17 Dose: 1 ea Metoprolol Tartrate (Lopressor) 25 mg PO Q12 DARRION Last Admin: 05/26/17 08:15 Dose: 25 mg Morphine Sulfate (Morphine) 2 mg IVP Q4 PRN PRN Reason: Pain, moderate (4-7) Last Admin: 05/23/17 14:45 Dose: 2 mg Nystatin (Nystatin Oral Susp) 5 ml PO QID [facility] Last Admin: 05/26/17 12:30 Dose: 5 ml Ondansetron HCl (Zofran Inj) 4 mg IVP Q6 PRN PRN Reason: Nausea/Vomiting Saliva Substitute (First Magic Mouthwash) 5 ml PO Q4 PRN PRN Reason: Sore Throat Last Admin: 05/26/17 08:16 Dose: 5 ml Silver Sulfadiazine (Silvadene 1% 20 Gm) 0 ea TOP Q12 [facility] Spironolactone (Aldactone) 25 mg PO BID [facility] Last Admin: 05/26/17 08:16 Dose: 25 mg - Labs Labs: - Additional Findings Additional findings: - Constitutional Appears: Chronically Ill but is now jaundiced and more weak - Head Exam Head Exam: ATRAUMATIC - Eye Exam Eye Exam: EOMI, PERRL - Respiratory Exam Respiratory Exam: tachypnea Additional comments: slightly decreased breath sounds at the bases no wheezing - Cardiovascular Exam Cardiovascular Exam: tachycardic , +S1, +S2 - GI/Abdominal Exam Additional comments: distended generalized tenderness , + bowel sounds no guarding No rebound - Extremities Exam Additional comments: 2+ LE edema B/L - Neurological Exam Neurological exam: Alert, Oriented x 3 Laboratory Results - last 72 hr 05/23/17 05/23/17 05/24/17 05:22 19:00 04:25 WBC 2.3 L RBC 3.47 L Hgb 9.1 L Hct 28.0 L MCV 80.6 MCH 26.1 L MCHC 32.4 L RDW 19.3 H Plt Count 20 L* MPV 8.5 Neut % (Auto) 93.1 H Lymph % (Auto) 4.9 L Kerr % (Auto) 1.0 Eos % (Auto) 0.9 Baso % (Auto) 0.1 Neut # (Auto) 2.2 Lymph # (Auto) 0.1 L Kerr # (Auto) 0.0 Eos # (Auto) 0.0 Baso # (Auto) 0.0 Neutrophils % (Manual) 91 H Band Neutrophils % 2 Lymphocytes % (Manual) 3 L Monocytes % (Manual) 4 Toxic Granulation Present Platelet Estimate Decreased L Large Platelets Present Hypochromasia (manual) Slight Anisocytosis (manual) Slight Tear Drop Cells Slight Ovalocytes Slight pCO2 26 L pO2 90 HCO3 22.3 ABG pH 7.48 H ABG Total CO2 20.2 L ABG O2 Saturation 100.8 H ABG O2 Content 11.8 L ABG Base Excess -3.4 L ABG Hemoglobin 8.5 L ABG Carboxyhemoglobin 2.4 H POC ABG HHb (Measured) -0.8 L ABG Methemoglobin 0.8 ABG O2 Capacity 11.7 L Terry Test Yes ABG Potassium A-a O2 Difference 134.0 Hgb O2 Saturation 97.7 Glucose Lactate Vent Mode FiO2 36.0 Crit Value Called To Crit Value Called By Crit Value Read Back Blood Gas Notified Time Sodium Potassium Chloride Carbon Dioxide Anion Gap BUN Creatinine Est GFR ( Amer) Est GFR (Non-Af Amer) Random Glucose Lactic Acid Uric Acid Calcium Magnesium Total Bilirubin Direct Bilirubin AST ALT Alkaline Phosphatase Total Protein Albumin Globulin Albumin/Globulin Ratio Alpha Fetoprotein Procalcitonin TSH 3rd Generation Arterial Blood Potassium Urine Color Maday Urine Clarity Cloudy Urine pH 5.0 Ur Specific Orting 1.021 Urine Protein Negative Urine Glucose (UA) Neg Urine Ketones Negative Urine Blood Small Urine Nitrate Negative Urine Bilirubin Moderate Urine Urobilinogen 4.0 Ur Leukocyte Esterase Neg Urine RBC (Auto) 6 H Urine Microscopic WBC 4 Urine Bacteria Rare Vancomycin Trough C. difficile Ag & Toxin Hepatitis A IgM Ab Hep Bs Antigen Hep B Core IgM Ab Hepatitis C Antibody 05/24/17 05/24/17 05/24/17 04:25 12:11 13:08 WBC RBC Hgb Hct MCV MCH MCHC RDW Plt Count MPV Neut % (Auto) Lymph % (Auto) Kerr % (Auto) Eos % (Auto) Baso % (Auto) Neut # (Auto) Lymph # (Auto) Kerr # (Auto) Eos # (Auto) Baso # (Auto) Neutrophils % (Manual) Band Neutrophils % Lymphocytes % (Manual) Monocytes % (Manual) Toxic Granulation Platelet Estimate Large Platelets Hypochromasia (manual) Anisocytosis (manual) Tear Drop Cells Ovalocytes pCO2 27 L pO2 108 H HCO3 22.0 ABG pH 7.45 ABG Total CO2 19.6 L ABG O2 Saturation 99.1 H ABG O2 Content ABG Base Excess -3.8 L ABG Hemoglobin ABG Carboxyhemoglobin POC ABG HHb (Measured) ABG Methemoglobin ABG O2 Capacity Terry Test Yes ABG Potassium 3.7 A-a O2 Difference 58.0 Hgb O2 Saturation Glucose 152 H Lactate 2.2 H Vent Mode 2lnc FiO2 28.0 Crit Value Called To Gaurav thompson Crit Value Called By Pako jeong Crit Value Read Back Y Blood Gas Notified Time 1317 Sodium 132 124.0 L Potassium 4.4 Chloride 101 101.0 Carbon Dioxide 18 L Anion Gap 17 BUN 49 H Creatinine 1.1 Est GFR ( Amer) > 60 Est GFR (Non-Af Amer) > 60 Random Glucose 104 Lactic Acid Uric Acid Calcium 7.7 L Magnesium 2.4 H Total Bilirubin 14.0 H Direct Bilirubin 12.8 H AST 44 ALT 74 H Alkaline Phosphatase 833 H Total Protein 5.0 L Albumin 1.9 L Globulin 3.1 Albumin/Globulin Ratio 0.6 L Alpha Fetoprotein Procalcitonin TSH 3rd Generation Arterial Blood Potassium 3.7 Urine Color Urine Clarity Urine pH Ur Specific Orting Urine Protein Urine Glucose (UA) Urine Ketones Urine Blood Urine Nitrate Urine Bilirubin Urine Urobilinogen Ur Leukocyte Esterase Urine RBC (Auto) Urine Microscopic WBC Urine Bacteria Vancomycin Trough C. difficile Ag & Toxin Hepatitis A IgM Ab Hep Bs Antigen Hep B Core IgM Ab Hepatitis C Antibody 05/24/17 05/24/17 05/24/17 14:27 14:27 17:00 WBC RBC Hgb Hct MCV MCH MCHC RDW Plt Count MPV Neut % (Auto) Lymph % (Auto) Kerr % (Auto) Eos % (Auto) Baso % (Auto) Neut # (Auto) Lymph # (Auto) Kerr # (Auto) Eos # (Auto) Baso # (Auto) Neutrophils % (Manual) Band Neutrophils % Lymphocytes % (Manual) Monocytes % (Manual) Toxic Granulation Platelet Estimate Large Platelets Hypochromasia (manual) Anisocytosis (manual) Tear Drop Cells Ovalocytes pCO2 pO2 HCO3 ABG pH ABG Total CO2 ABG O2 Saturation ABG O2 Content ABG Base Excess ABG Hemoglobin ABG Carboxyhemoglobin POC ABG HHb (Measured) ABG Methemoglobin ABG O2 Capacity Terry Test ABG Potassium A-a O2 Difference Hgb O2 Saturation Glucose Lactate Vent Mode FiO2 Crit Value Called To Crit Value Called By Crit Value Read Back Blood Gas Notified Time Sodium Potassium Chloride Carbon Dioxide Anion Gap BUN Creatinine Est GFR ( Amer) Est GFR (Non-Af Amer) Random Glucose Lactic Acid Uric Acid Calcium Magnesium Total Bilirubin 13.5 H Direct Bilirubin 10.5 H AST ALT Alkaline Phosphatase Total Protein Albumin Globulin Albumin/Globulin Ratio Alpha Fetoprotein 0.9 Procalcitonin TSH 3rd Generation Arterial Blood Potassium Urine Color Urine Clarity Urine pH Ur Specific Orting Urine Protein Urine Glucose (UA) Urine Ketones Urine Blood Urine Nitrate Urine Bilirubin Urine Urobilinogen Ur Leukocyte Esterase Urine RBC (Auto) Urine Microscopic WBC Urine Bacteria Vancomycin Trough C. difficile Ag & Toxin Hepatitis A IgM Ab Negative Hep Bs Antigen Negative Hep B Core IgM Ab Negative Hepatitis C Antibody Negative 05/25/17 05/25/17 05/25/17 04:45 04:45 04:45 WBC 0.6 L* D RBC 3.38 L Hgb 8.9 L Hct 26.7 L MCV 78.9 L MCH 26.3 L MCHC 33.3 RDW 19.2 H Plt Count 26 L* MPV Neut % (Auto) Lymph % (Auto) Kerr % (Auto) Eos % (Auto) Baso % (Auto) Neut # (Auto) Lymph # (Auto) Kerr # (Auto) Eos # (Auto) Baso # (Auto) Neutrophils % (Manual) Band Neutrophils % Lymphocytes % (Manual) Monocytes % (Manual) Toxic Granulation Platelet Estimate Large Platelets Hypochromasia (manual) Anisocytosis (manual) Tear Drop Cells Ovalocytes pCO2 pO2 HCO3 ABG pH ABG Total CO2 ABG O2 Saturation ABG O2 Content ABG Base Excess ABG Hemoglobin ABG Carboxyhemoglobin POC ABG HHb (Measured) ABG Methemoglobin ABG O2 Capacity Terry Test ABG Potassium A-a O2 Difference Hgb O2 Saturation Glucose Lactate Vent Mode FiO2 Crit Value Called To Crit Value Called By Crit Value Read Back Blood Gas Notified Time Sodium 131 L Potassium 4.3 Chloride 101 Carbon Dioxide 18 L Anion Gap 16 BUN 53 H Creatinine 1.1 Est GFR ( Amer) > 60 Est GFR (Non-Af Amer) > 60 Random Glucose 112 H Lactic Acid Uric Acid Calcium 7.6 L Magnesium Total Bilirubin 14.1 H Direct Bilirubin 12.7 H AST 44 ALT 53 Alkaline Phosphatase 936 H Total Protein 5.1 L Albumin 2.0 L Globulin 3.1 Albumin/Globulin Ratio 0.6 L Alpha Fetoprotein Procalcitonin 29.57 H TSH 3rd Generation 1.27 Arterial Blood Potassium Urine Color Urine Clarity Urine pH Ur Specific Orting Urine Protein Urine Glucose (UA) Urine Ketones Urine Blood Urine Nitrate Urine Bilirubin Urine Urobilinogen Ur Leukocyte Esterase Urine RBC (Auto) Urine Microscopic WBC Urine Bacteria Vancomycin Trough C. difficile Ag & Toxin Hepatitis A IgM Ab Hep Bs Antigen Hep B Core IgM Ab Hepatitis C Antibody 05/25/17 05/25/17 05/25/17 04:45 04:45 08:28 WBC RBC Hgb Hct MCV MCH MCHC RDW Plt Count MPV Neut % (Auto) Lymph % (Auto) Kerr % (Auto) Eos % (Auto) Baso % (Auto) Neut # (Auto) Lymph # (Auto) Kerr # (Auto) Eos # (Auto) Baso # (Auto) Neutrophils % (Manual) Band Neutrophils % Lymphocytes % (Manual) Monocytes % (Manual) Toxic Granulation Platelet Estimate Large Platelets Hypochromasia (manual) Anisocytosis (manual) Tear Drop Cells Ovalocytes pCO2 pO2 HCO3 ABG pH ABG Total CO2 ABG O2 Saturation ABG O2 Content ABG Base Excess ABG Hemoglobin ABG Carboxyhemoglobin POC ABG HHb (Measured) ABG Methemoglobin ABG O2 Capacity Terry Test ABG Potassium A-a O2 Difference Hgb O2 Saturation Glucose Lactate Vent Mode FiO2 Crit Value Called To Crit Value Called By Crit Value Read Back Blood Gas Notified Time Sodium Potassium Chloride Carbon Dioxide Anion Gap BUN Creatinine Est GFR ( Amer) Est GFR (Non-Af Amer) Random Glucose Lactic Acid 1.5 Uric Acid Calcium Magnesium Total Bilirubin Direct Bilirubin AST ALT Alkaline Phosphatase Total Protein Albumin Globulin Albumin/Globulin Ratio Alpha Fetoprotein Procalcitonin TSH 3rd Generation Arterial Blood Potassium Urine Color Urine Clarity Urine pH Ur Specific Orting Urine Protein Urine Glucose (UA) Urine Ketones Urine Blood Urine Nitrate Urine Bilirubin Urine Urobilinogen Ur Leukocyte Esterase Urine RBC (Auto) Urine Microscopic WBC Urine Bacteria Vancomycin Trough 6.4 C. difficile Ag & Toxin Negative Hepatitis A IgM Ab Hep Bs Antigen Hep B Core IgM Ab Hepatitis C Antibody 05/26/17 05/26/17 04:20 04:20 WBC 0.2 L* D RBC 4.03 L Hgb 10.4 L Hct 32.3 L MCV 80.0 MCH 25.9 L MCHC 32.4 L RDW 19.2 H Plt Count 31 L MPV Neut % (Auto) Lymph % (Auto) Kerr % (Auto) Eos % (Auto) Baso % (Auto) Neut # (Auto) Lymph # (Auto) Kerr # (Auto) Eos # (Auto) Baso # (Auto) Neutrophils % (Manual) Band Neutrophils % Lymphocytes % (Manual) Monocytes % (Manual) Toxic Granulation Platelet Estimate Large Platelets Hypochromasia (manual) Anisocytosis (manual) Tear Drop Cells Ovalocytes pCO2 pO2 HCO3 ABG pH ABG Total CO2 ABG O2 Saturation ABG O2 Content ABG Base Excess ABG Hemoglobin ABG Carboxyhemoglobin POC ABG HHb (Measured) ABG Methemoglobin ABG O2 Capacity Terry Test ABG Potassium A-a O2 Difference Hgb O2 Saturation Glucose Lactate Vent Mode FiO2 Crit Value Called To Crit Value Called By Crit Value Read Back Blood Gas Notified Time Sodium 133 Potassium 4.3 Chloride 99 Carbon Dioxide 18 L Anion Gap 20 BUN 61 H Creatinine 1.6 H Est GFR ( Amer) 59 Est GFR (Non-Af Amer) 48 Random Glucose 121 H Lactic Acid Uric Acid 5.0 Calcium 8.4 Magnesium Total Bilirubin Direct Bilirubin AST ALT Alkaline Phosphatase Total Protein Albumin Globulin Albumin/Globulin Ratio Alpha Fetoprotein Procalcitonin TSH 3rd Generation Arterial Blood Potassium Urine Color Urine Clarity Urine pH Ur Specific Orting Urine Protein Urine Glucose (UA) Urine Ketones Urine Blood Urine Nitrate Urine Bilirubin Urine Urobilinogen Ur Leukocyte Esterase Urine RBC (Auto) Urine Microscopic WBC Urine Bacteria Vancomycin Trough C. difficile Ag & Toxin Hepatitis A IgM Ab Hep Bs Antigen Hep B Core IgM Ab Hepatitis C Antibody Microbiology 05/24/17 22:03 Nose MRSA Culture (Admit) - Final MRSA NOT DETECTED 05/23/17 17:41 Blood-Venous Blood Culture - Preliminary NO GROWTH AFTER 48 HOURS 05/23/17 17:41 Blood-Venous Blood Culture - Preliminary NO GROWTH AFTER 48 HOURS 05/20/17 17:32 Blood-Venous Blood Culture - Final NO GROWTH AFTER 5 DAYS 05/20/17 17:32 Blood-Venous Gram Stain - Final TEST NOT PERFORMED 05/21/17 10:30 Urine,Random Urine Culture - Final No Growth (<1,000 CFU/ML) Accession No. : [id number] Patient Name / ID : CHENTE ESCOBAR / [id number] Exam Date : 05/26/2017 06:25:55 ( Approved ) Study Comment : Sex / Age : M / 37Y Creator : Mohan Harper MD Dictator : Mohan Harper MD Dispatcher Ship Pilot : Retort Furnace Operator : Mohan Harper MD Approver2 : Report Date : 05/26/2017 08:20:41 My Comment : HISTORY: Tachypnea COMPARISON: Portable chest 05/23/2017. FINDINGS: MediPort unchanged in position. LUNGS: Diminished bilateral infrahilar/ basilar infiltrates. Inspiratory volume remains somewhat limited. PLEURA: No significant pleural effusion identified, no pneumothorax apparent. CARDIOVASCULAR: Normal. OSSEOUS STRUCTURES: No significant abnormalities. VISUALIZED UPPER ABDOMEN: Normal. OTHER FINDINGS: None. IMPRESSION: Improving bilateral infiltrates at the infrahilar/medial basilar spaces with inspiratory volume remaining limited. Accession No. : [id number] Patient Name / ID : CHENTE ESCOBAR / [id number] Exam Date : 05/26/2017 12:51:37 ( Approved ) Study Comment : Sex / Age : M / 37Y Creator : Hipolito Lucia MD Dictator : Hipolito Lucia MD Dispatcher Ship Pilot : Retort Furnace Operator : Hipolito Lucia MD Approver2 : Report Date : 05/26/2017 14:19:52 My Comment : HISTORY: r/o obstruction COMPARISON: No prior. FINDINGS: BOWEL: Gas within multiple small bowel loops, some mildly dilated. . Gas within particularly distended bowel loop right lower quadrant, indeterminate whether large or small bowel. Cannot rule out early mechanical bowel obstruction. Followup advised. BONES: Normal. OTHER FINDINGS: None. IMPRESSION: Dilated bowel loops, possibly reflecting early mechanical small bowel obstruction. Followup advised. Assessment and Plan (1) HIV disease Status: Acute (2) Hodgkin's lymphoma Status: Acute (3) Anasarca Status: Acute (4) Fever Status: Acute - Assessment and Plan (Free Text) Assessment: A/P- 37 year old male with HIV f/u at [facility] on [address] with UD VL but CD4-17 , newly diagnosed stage $ Hodgkin;s lymphoma s/p first chemo yesterday admitted with weakness. fevers persist tachycardic, jaundiced and tachypneic anasarca all blood and urine cx negative to date pt. kept on empiric broad spectrum IV abx for now since his immunesuppressed and likely will become neutropenic post chemo. TTE negative for vegetations as per report. pancytopneic abd xray- dilated small bowel as per report. stool c.diff- negative plan- continue with empiric IV vancomycin day #10 since pt. is immunocompromised / neutroprnic and febrile. keep vanco trough <15. continue with empiric meropnem day #8 to cover for nosocomial pathogens since pt. was recently hospitalized and is immune suppressed pending further results. advise GI evaluation check stool c.diff and stool culture. continue with empiric Neutropenic precautions. all above d/w patient and his mother who is at bedside and with paleologist and Dr.Pierre Morelos. condition guarded. ICU time 50 minutes.
[2017-05-26] MEDS: Acetaminophen 650mg/20.3ml solution UD PO PRN (19:40)
[2017-05-26] MEDS ORDERED: Silver Sulfadiazine 1% Cream (20 gm) TOP SCH (21:00)
[2017-05-27] MEDS: Meropenem 1 GM in Sodium Chloride 0.9% 100 ML IVPB SCH ×3 (00:30→18:27)
[2017-05-27 05:34] LABS: HEMOGLOBIN 8.1 g/dL (12.0-18.0); MEAN CELL VOLUME 78.7 fl (80.0-94.0); MEAN CORPUSCULAR HEMOGLOBIN 26.3 pg (27.0-31.0); MEAN CORPUSCULAR HGB CONC 33.4 g/dL (33.0-37.0); RBC 3.08 Mil/uL (4.40-5.90); RED CELL DISTRIBUTION WIDTH 18.9 % (11.5-14.5)
[2017-05-27 05:41] LABS: CALCIUM 7.9 mg/dL (8.4-10.2)
[2017-05-27 05:48] LABS: INR 1.9 (0.9-1.2); PARTIAL THROMBOPLASTIN TIME 47.9 Seconds (25.6-37.1); PROTHROMBIN TIME 21.8 Seconds (9.8-13.1)
--- NOTE | 2017-05-27 07:26 | CP.PCM.PN ---
Subjective - Date & Time of Evaluation Date of Evaluation: 05/27/17 Time of Evaluation: 07:05 - Subjective Subjective: ICU day 4 Patient seen and examined in this morning. no acute events during night. looks very ill today, barely speak due to sob, resp effort. Patient noted more weak. Anasarca, jaundice. Continue spike fever. Patient express desire to be transferred to another hospital Objective - Vital Signs/Intake and Output Vital Signs (last 24 hours): Temp Pulse Resp BP Pulse Ox 98.5 F 130 H 27 H 108/61 100 05/27/17 04:00 05/27/17 06:00 05/27/17 06:00 05/27/17 06:00 05/27/17 06:00 Intake and Output: 05/27/17 05/27/17 06:59 18:59 Intake Total 350 Output Total 250 Balance 100 - Medications Medications: Current Medications Acetaminophen (Tylenol 650mg/20.3ml Solution Ud) 650 mg PO Q4 PRN PRN Reason: Temperature Last Admin: 05/26/17 19:40 Dose: 650 mg Atovaquone (Mepron) 1,500 mg PO DAILY DARRION PRN Reason: Protocol Last Admin: 05/26/17 08:18 Dose: 1,500 mg Furosemide (Lasix) 40 mg IVP DAILY DARRION Last Admin: 05/26/17 08:18 Dose: 40 mg Home Med (Patient's Own Medication) 1 unit PO DAILY DARRION Last Admin: 05/26/17 08:16 Dose: 1 unit Meropenem 1 gm/ Sodium (Chloride) 100 mls @ 100 mls/hr IVPB Q8 DARRION PRN Reason: Protocol Last Admin: 05/27/17 00:30 Dose: 100 mls/hr Vancomycin HCl 1 gm/ Sodium (Chloride) 250 mls @ 125 mls/hr IVPB DAILY DARRION Last Admin: 05/26/17 08:45 Dose: 125 mls/hr Lidocaine (Lidoderm) 1 ea TD DAILY DARRION Last Admin: 05/26/17 08:17 Dose: 1 ea Metoprolol Tartrate (Lopressor) 25 mg PO Q12 DARRION Last Admin: 05/26/17 21:00 Dose: Not Given Morphine Sulfate (Morphine) 2 mg IVP Q4 PRN PRN Reason: Pain, moderate (4-7) Last Admin: 05/23/17 14:45 Dose: 2 mg Nystatin (Nystatin Oral Susp) 5 ml PO QID [facility] Last Admin: 05/26/17 21:21 Dose: Not Given Ondansetron HCl (Zofran Inj) 4 mg IVP Q6 PRN PRN Reason: Nausea/Vomiting Saliva Substitute (First Magic Mouthwash) 5 ml PO Q4 PRN PRN Reason: Sore Throat Last Admin: 05/26/17 08:16 Dose: 5 ml Silver Sulfadiazine (Silvadene 1% 20 Gm) 0 ea TOP Q12 [facility] Spironolactone (Aldactone) 25 mg PO BID [facility] Last Admin: 05/26/17 17:02 Dose: 25 mg - Labs Labs: 05/27/17 04:20 05/27/17 04:20 PT 21.8 Seconds (9.8-13.1) H 05/27/17 04:20 INR 1.9 (0.9-1.2) H 05/27/17 04:20 APTT 47.9 Seconds (25.6-37.1) H 05/27/17 04:20 - Constitutional Appears: Toxic, Cachectic, Chronically Ill - Head Exam Head Exam: NORMAL INSPECTION - Eye Exam Eye Exam: EOMI, PERRL, Scleral icterus - ENT Exam ENT Exam: Mucous Membranes Dry - Respiratory Exam Respiratory Exam: Accessory Muscle Use, Clear to Ausculation Bilateral - Cardiovascular Exam Cardiovascular Exam: Tachycardia, REGULAR RHYTHM, +S1, +S2. absent: Murmur - GI/Abdominal Exam GI & Abdominal Exam: Distended, Tenderness - Exam Exam: Scrotal Swelling - Extremities Exam Extremities Exam: absent: Calf Tenderness Additional comments: bilateral generalized LE edema - Neurological Exam Neurological Exam: Alert, Oriented x3 Assessment and Plan - Assessment and Plan (Free Text) Assessment: 37yo M with PMHx of HIV/AIDS and Hodgkins Lymphoma stage 4 s/p chemo cycle #1 admitted for persistent fevers. Continue spike fevers. Anasarca, Hyperbilirubinemia. Tachypnea. ICU day 4 Plan: c/w empiric IV abx and opportunistic infections prophylaxis . Fluids restriction, d/c lasix, c/w aldactone, PRBC, platelets transfusion. HFNC 20 LMP. 1- Fevers, persistent - most likely 2/2 to malignancy - Tylenol prn - ID on board, Recs appreciated -c/w Vancomycin and Meropenem IV as prophylaxis (day 10) - blood and urine culture negative - CXR 05/26: improving in b/l lower infiltrates, no pleural effusions noted. 2- S4 lymphoma - s/p chemo cycle #1 05/20/17: Adriamycin/Bleomacyn/Vinblastine/Decarbazine - Hematology/Onc on board, Recs appreciated - Uric acid 5 (wnl) 05/26 3- oral thrush - c/w PO nystatin - magic mouth wash 4- Tachycardia/Tachypnea - RR 30-55 - On HFNC 20 LPM at 40% oxygen - c/w metoprolol succ 25 mg PO daily 5- Anarsarca - Nephro Dr Graves recs appreciated: -strict oral fluids restriction -d/c IV fluids -d/c lasix -c/w Aldactone 50mg BID -albumin repletion Q8 6- Pancytopenia - most likely 2/2 malignancy - transfuse pRBC if Hgb <8, FFPE if plt<10 - will transfuse today - Granix daily for 3 days 7- Hyponatremia, resolved - likely related to the massive ascites dilutional - Na 130 8- Elevated LFTs/bilirubin with liver mets - liver US wnl - GI Dr Austin on board - secondary to chemo/malignancy - MRCP 05/25: negative for biliary obstruction. - ABD xrays: bowel loops distention, possible early bowel obstruction. 9- HIV/AIDS - lymphocyte panel on 05/17/17 - CD4 count <20, CD4 6% - C/W current HIV treatment (pt owns medications, started Biktarvy once chemo started) - per ID stopped azithro 1x weekly (last dose 05/18/17) - c/w Mepron (atovaquone) 1500 mg PO daily (PCP prophylaxis) 10- DVT prophylaxis -no pharmacological agents 2/2 thrombocytopenia -SCDs 11- Code -Full, confirmed with patient 05/26/17
[2017-05-27] MEDS ORDERED: Albumin Human 25% (12.5 gm/50 ml) IV SCH (09:00)
[2017-05-27] MEDS: Lidocaine 5% Patch TD SCH (09:30)
--- NOTE | 2017-05-27 09:39 | CP.PCM.PN ---
Subjective - Date & Time of Evaluation Date of Evaluation: 05/27/17 Time of Evaluation: 08:50 - Subjective Subjective: GI Fellow PGY4 Progress Note Pt seen and evaluated at bedside, pt critically ill, tachypneic with anasarca and diffuse edema. Pt looks worse this am with increasing jaundice and SOB. Pt reports he is requesting transfer to a hospital in [facility], discussion with primary team ongoing. ROS: A 12pt ROS was negative except as above. Objective - Vital Signs/Intake and Output Vital Signs (last 24 hours): Temp Pulse Resp BP Pulse Ox 98.5 F 130 H 27 H 108/61 100 05/27/17 04:00 05/27/17 06:00 05/27/17 06:00 05/27/17 06:00 05/27/17 06:00 Intake and Output: 05/27/17 05/27/17 06:59 18:59 Intake Total 350 Output Total 250 Balance 100 - Medications Medications: Current Medications Acetaminophen (Tylenol 650mg/20.3ml Solution Ud) 650 mg PO Q4 PRN PRN Reason: Temperature Last Admin: 05/26/17 19:40 Dose: 650 mg Albumin Human (Albumin Human 25% (12.5 Gm/50 Ml)) 12.5 gm IV Q8 [facility] Stop: 05/28/17 09:00 Atovaquone (Mepron) 1,500 mg PO DAILY [facility] PRN Reason: Protocol Last Admin: 05/26/17 08:18 Dose: 1,500 mg Furosemide (Lasix) 40 mg IVP DAILY [facility] Last Admin: 05/26/17 08:18 Dose: 40 mg Home Med (Patient's Own Medication) 1 unit PO DAILY [facility] Last Admin: 05/26/17 08:16 Dose: 1 unit Meropenem 1 gm/ Sodium (Chloride) 100 mls @ 100 mls/hr IVPB Q8 [facility] PRN Reason: Protocol Last Admin: 05/27/17 00:30 Dose: 100 mls/hr Vancomycin HCl 1 gm/ Sodium (Chloride) 250 mls @ 125 mls/hr IVPB DAILY [facility] Last Admin: 05/26/17 08:45 Dose: 125 mls/hr Lidocaine (Lidoderm) 1 ea TD DAILY [facility] Last Admin: 05/26/17 08:17 Dose: 1 ea Metoprolol Tartrate (Lopressor) 25 mg PO Q12 [facility] Last Admin: 05/26/17 21:00 Dose: Not Given Morphine Sulfate (Morphine) 2 mg IVP Q4 PRN PRN Reason: Pain, moderate (4-7) Last Admin: 05/23/17 14:45 Dose: 2 mg Nystatin (Nystatin Oral Susp) 5 ml PO QID [facility] Last Admin: 05/26/17 21:21 Dose: Not Given Ondansetron HCl (Zofran Inj) 4 mg IVP Q6 PRN PRN Reason: Nausea/Vomiting Saliva Substitute (First Magic Mouthwash) 5 ml PO Q4 PRN PRN Reason: Sore Throat Last Admin: 05/26/17 08:16 Dose: 5 ml Silver Sulfadiazine (Silvadene 1% 20 Gm) 0 ea TOP Q12 [facility] Spironolactone (Aldactone) 50 mg PO BID [facility] - Labs Labs: 05/27/17 04:20 05/27/17 04:20 PT 21.8 Seconds (9.8-13.1) H 05/27/17 04:20 INR 1.9 (0.9-1.2) H 05/27/17 04:20 APTT 47.9 Seconds (25.6-37.1) H 05/27/17 04:20 - Constitutional Appears: Toxic, In Acute Distress, Cachectic, Chronically Ill - Head Exam Head Exam: ATRAUMATIC, NORMAL INSPECTION, NORMOCEPHALIC - Eye Exam Eye Exam: EOMI, PERRL, Scleral icterus - ENT Exam ENT Exam: Mucous Membranes Dry - Neck Exam Neck Exam: Full ROM, Normal Inspection - Respiratory Exam Respiratory Exam: Accessory Muscle Use, Rales, Respiratory Distress - Cardiovascular Exam Cardiovascular Exam: Tachycardia - GI/Abdominal Exam GI & Abdominal Exam: Distended, Tenderness, Hypoactive Bowel Sounds - Extremities Exam Extremities Exam: Pedal Edema - Neurological Exam Neurological Exam: Alert, Awake, Oriented x3 - Psychiatric Exam Psychiatric exam: Normal Affect, Normal Mood - Skin Skin Exam: Dry, Intact, Warm Additional comments: jaundice Assessment and Plan - Assessment and Plan (Free Text) Assessment: This is a 37yM presenting with fevers and tachycardia after chemotherapy. 1. AIDs 2. Hodgkins Lymphoma 3. Elevated LFTs, hyperbilirubinemia 4. Anasarca 5. Thrombocytopenia 6. ADONAY 7. Abdominal pain and distention Plan: -Continue supportive care, pt ill appearing, jaundice, cachectic, anasarca -Pt with elevated Alkaline phos/TBili likely from chemotherapy and tumor burden/ infiltrative liver -MRCP negative for any obstruction -Monitor CMP, CBC -Abd Xray with gas, dilated small bowel and concern for early mechanical obstruction, pt will need close follow up and serial abdominal exams, may need NGT if develops N/V -Bowel regimen with miralax daily -Worsening renal function -Diet as tolerated -Further medical care per primary team and oncology -Will continue to follow closely
[2017-05-27] MEDS: Acetaminophen 650mg/20.3ml solution UD PO PRN ×2 (09:55→17:58)
--- NOTE | 2017-05-27 09:55 | CP.PCM.PN ---
Subjective - Date & Time of Evaluation Date of Evaluation: 05/27/17 Time of Evaluation: 09:55 - Subjective Subjective: Patient somewhat confuse appears to be chronically and is debilitated. Vision is very jaundice, distended abdomen Urine output 250 mL over night Objective - Vital Signs/Intake and Output Vital Signs (last 24 hours): Temp Pulse Resp BP Pulse Ox 98.5 F 130 H 27 H 108/61 100 05/27/17 04:00 05/27/17 06:00 05/27/17 06:00 05/27/17 06:00 05/27/17 06:00 Intake and Output: 05/27/17 05/27/17 06:59 18:59 Intake Total 350 Output Total 250 Balance 100 - Medications Medications: Current Medications Acetaminophen (Tylenol 650mg/20.3ml Solution Ud) 650 mg PO Q4 PRN PRN Reason: Temperature Last Admin: 05/26/17 19:40 Dose: 650 mg Albumin Human (Albumin Human 25% (12.5 Gm/50 Ml)) 12.[address] [facility] Stop: 05/28/17 09:00 Atovaquone (Mepron) 1,500 mg PO DAILY [facility] PRN Reason: Protocol Last Admin: 05/26/17 08:18 Dose: 1,500 mg Furosemide (Lasix) 40 mg IVP DAILY [facility] Last Admin: 05/26/17 08:18 Dose: 40 mg Home Med (Patient's Own Medication) 1 unit PO DAILY [facility] Last Admin: 05/26/17 08:16 Dose: 1 unit Meropenem 1 gm/ Sodium (Chloride) 100 mls @ 100 mls/hr IVPB Q8 [facility] PRN Reason: Protocol Last Admin: 05/27/17 00:30 Dose: 100 mls/hr Vancomycin HCl 1 gm/ Sodium (Chloride) 250 mls @ 125 mls/hr IVPB DAILY [facility] Last Admin: 05/26/17 08:45 Dose: 125 mls/hr Lidocaine (Lidoderm) 1 ea TD DAILY [facility] Last Admin: 05/26/17 08:17 Dose: 1 ea Metoprolol Tartrate (Lopressor) 25 mg PO Q12 [facility] Last Admin: 05/26/17 21:00 Dose: Not Given Morphine Sulfate (Morphine) 2 mg IVP Q4 PRN PRN Reason: Pain, moderate (4-7) Last Admin: 05/23/17 14:45 Dose: 2 mg Nystatin (Nystatin Oral Susp) 5 ml PO QID [facility] Last Admin: 05/26/17 21:21 Dose: Not Given Ondansetron HCl (Zofran Inj) 4 mg IVP Q6 PRN PRN Reason: Nausea/Vomiting Polyethylene Glycol (Miralax) 17 gm PO DAILY [facility] Saliva Substitute (First Magic Mouthwash) 5 ml PO Q4 PRN PRN Reason: Sore Throat Last Admin: 05/26/17 08:16 Dose: 5 ml Silver Sulfadiazine (Silvadene 1% 20 Gm) 0 ea TOP Q12 [facility] Spironolactone (Aldactone) 50 mg PO BID [facility] - Labs Labs: 05/27/17 04:20 05/27/17 04:20 PT 21.8 Seconds (9.8-13.1) H 05/27/17 04:20 INR 1.9 (0.9-1.2) H 05/27/17 04:20 APTT 47.9 Seconds (25.6-37.1) H 05/27/17 04:20 Assessment and Plan (1) HIV disease Status: Acute (2) Hodgkin's lymphoma Status: Acute (3) AIDS (acquired immunodeficiency syndrome), CD4 <=200 Status: Acute (4) Anasarca Status: Acute (5) Hepatorenal syndrome Assessment & Plan: 1- HRS 2 patient extremely jaundice with elevation of bilirubin and abnormal liver enzyme. #3 massive ascites including very large hydrocele/anasarca. #4 lymphomaHodgkin disease. #5 metastatic disease. #6 anemia. #7 hyponatremia dilutional the plan Continue fluid restriction. Aldactone hold lasix albumine as discussed with resident every 8hr prognosis very poor Status: Acute
[2017-05-27 09:57] LABS: ALB/GLOB RATIO 0.6 (1.0-2.1); BILIRUBIN,DIRECT 11.7 mg/ml (0.0-0.4)
[2017-05-27] MEDS: Nystatin 100,000 Units/ml Oral Susp 5 ml UD PO SCH ×4 (10:33→22:51)
[2017-05-27] MEDS: BIKTARVY PO SCH (12:04)
[2017-05-27] MEDS: Atovaquone 750 mg/5 ml Susp UD PO SCH (12:05)
[2017-05-27] MEDS ORDERED: Phytonadione 10 mg/ml Inj (Adult) IV ONE (12:19)
--- NOTE | 2017-05-27 12:24 | CP.PCM.PN ---
Subjective - Date & Time of Evaluation Date of Evaluation: 05/27/17 Time of Evaluation: 11:00 - Subjective Subjective: Pt continues to have abdominal distension/testicular swelling Family at bedside, patient and family requesting transfer to [place] Objective - Vital Signs/Intake and Output Vital Signs (last 24 hours): Temp Pulse Resp BP Pulse Ox 98.7 F 123 H 24 103/56 L 98 05/27/17 11:56 05/27/17 11:56 05/27/17 11:56 05/27/17 11:56 05/27/17 11:56 Intake and Output: 05/27/17 05/27/17 06:59 18:59 Intake Total 350 Output Total 250 Balance 100 - Medications Medications: Current Medications Acetaminophen (Tylenol 650mg/20.3ml Solution Ud) 650 mg PO Q4 PRN PRN Reason: Temperature Last Admin: 05/27/17 09:55 Dose: 650 mg Albumin Human (Albumin Human 25% (12.5 Gm/50 Ml)) 12.5 gm IV Q8 [facility] Stop: 05/28/17 09:00 Last Admin: 05/27/17 10:19 Dose: 12.5 gm Atovaquone (Mepron) 1,500 mg PO DAILY [facility] PRN Reason: Protocol Last Admin: 05/27/17 12:05 Dose: 1,500 mg Furosemide (Lasix) 40 mg IVP DAILY [facility] Last Admin: 05/27/17 09:53 Dose: 40 mg Home Med (Patient's Own Medication) 1 unit PO DAILY [facility] Last Admin: 05/27/17 12:04 Dose: 1 unit Meropenem 1 gm/ Sodium (Chloride) 100 mls @ 100 mls/hr IVPB Q8 [facility] PRN Reason: Protocol Last Admin: 05/27/17 10:16 Dose: 100 mls/hr Vancomycin HCl 1 gm/ Sodium (Chloride) 250 mls @ 125 mls/hr IVPB DAILY [facility] Last Admin: 05/27/17 10:32 Dose: 125 mls/hr Lidocaine (Lidoderm) 1 ea TD DAILY [facility] Last Admin: 05/27/17 09:30 Dose: 1 ea Metoprolol Tartrate (Lopressor) 25 mg PO Q12 [facility] Last Admin: 05/27/17 09:48 Dose: 25 mg Morphine Sulfate (Morphine) 2 mg IVP Q4 PRN PRN Reason: Pain, moderate (4-7) Last Admin: 05/23/17 14:45 Dose: 2 mg Nystatin (Nystatin Oral Susp) 5 ml PO QID [facility] Last Admin: 05/27/17 12:05 Dose: 5 ml Ondansetron HCl (Zofran Inj) 4 mg IVP Q6 PRN PRN Reason: Nausea/Vomiting Phytonadione (Vitamin K Inj) 10 mg IV ONCE ONE Stop: 05/27/17 12:20 Polyethylene Glycol (Miralax) 17 gm PO DAILY [facility] Saliva Substitute (First Magic Mouthwash) 5 ml PO Q4 PRN PRN Reason: Sore Throat Last Admin: 05/26/17 08:16 Dose: 5 ml Silver Sulfadiazine (Silvadene 1% 20 Gm) 0 ea TOP Q12 [facility] Spironolactone (Aldactone) 50 mg PO BID [facility] Last Admin: 05/27/17 09:53 Dose: 50 mg - Labs Labs: 05/27/17 04:20 05/27/17 04:20 PT 21.8 Seconds (9.8-13.1) H 05/27/17 04:20 INR 1.9 (0.9-1.2) H 05/27/17 04:20 APTT 47.9 Seconds (25.6-37.1) H 05/27/17 04:20 - Constitutional Appears: Chronically Ill - Head Exam Head Exam: ATRAUMATIC - Eye Exam Eye Exam: Scleral icterus - ENT Exam ENT Exam: Mucous Membranes Dry - Respiratory Exam Respiratory Exam: NORMAL BREATHING PATTERN - Cardiovascular Exam Cardiovascular Exam: +S1, +S2 - GI/Abdominal Exam GI & Abdominal Exam: Normal Bowel Sounds - Extremities Exam Extremities Exam: Pedal Edema - Skin Skin Exam: Warm Additional comments: Jaundiced Assessment and Plan (1) Pancytopenia Assessment & Plan: Secondary to chemotherapy and AIDS on GCSF to receive 1 bag platelets and 1U PRBC with lasix Status: Acute (2) Hodgkin's lymphoma Assessment & Plan: stage IVb large tumor burden in liver with elevated Dbili s/p ABVD chemotherapy 05/20 uric acid not elevated; repeat in AM Status: Acute
[2017-05-27] MEDS ORDERED: Phytonadione 10 MG in Sodium Chloride 0.9% 50 ML IV ONE (13:30)
--- NOTE | 2017-05-27 14:30 | CP.CCUPN ---
CCU Subjective - Physician Review Subjective (Free Text): Breathing less labored on HFNC, able to converse without extreme dyspnea, appears reluctant to move OOB. RR in 20s, SPo2 98% on 40% oxygen at 20 LPM. Other VS and I/Os reviewed. Tmax has been 102.9F over last 24H. HR 120s in sinus, SBP 110s. On RL now at 100ml/hr. Positive 0.7L fluid balance. ROS: No other pertinent negs or positives on 10+ system review. PMSFH: All other Nursing and physician documentation reviewed to date; no new pertinent info noted relevant to current medical problems. EXAM- HEENT: no icterus, no gaze preference, pupils 3 mm equal, ++ icterus NECK: No JVD, supple, carotids equal upstroke bilat/no bruits CHEST: decreased BS bases, no wheezes audible HEART: regular distant, S1S2, no rubs. ABD: soft, + distention, + tenderness across periumbilical area, BS hypoactive EXT: ++edema bilat with anasarca and scrotal edema. No peripheral/ digital cyanosis, no calf tenderness or palpable cords, distal pulses intact and symmetrical. NEURO: no gross focal motor deficits SKIN: no rashes, warm and dry. LABS: WBC= ZERO HGB= 8.1 PLTs= 13 K INR= 1.9 Na= 130 K= 4.0 CL= 98 HCO3= 18 BUN/Cr= 67/1.9 BS= 115 AXR yesterday: small and large bowel distention, no air fluid levels, no free air. MRCP results reviewed, no biliary tree obstruction, multiple masses seen in the liver. IMPRESSION / MAJOR PROBLEMS NOW: 1. Neutropenia with fevers, without Shock state, r/o bacteremia 2. Jaundice, with Alk Phos elevation: 2 infiltrative / mets disease. 3. Hodgkins Lymphoma, s/p Chemo tx 4. HIV disease with h/o AIDS PLAN: 1. Follow LFTs, check GGT, and consider repeat ultrasound of GB. 2. HemOnc to transfuse blood products today; Lasix afterwards. Would then hold Albumin today. 3. VitK; give FFP to correct coags for any anticipated invasive procedures ( abdominal paracentesis eval upcoming??). 4. Empiric abx coverage, ?? antifungal coverage. 5. Patient, Mother, Sister, Stepfather: requesting transfer to a cancer center. Otherwise transfer to Telemetry unit for now, unless he is critically ill requiring life support measures today. CCU Objective - Vital Signs / Intake & Output Vital Signs (Last 4 hours): Vital Signs Temp Pulse Resp BP Pulse Ox 05/27/17 11:56 98.7 F 123 H 24 103/56 L 98 05/27/17 11:10 18 05/27/17 10:55 98.7 F Intake and Output (Last 8hrs): Intake & Output 05/26/17 05/27/17 05/27/17 22:59 06:59 14:59 Intake Total 440 250 Output Total 250 Balance 440 0 Weight 178 lb Intake: Intake, Piggyback 100 100 Oral 340 150 Output: Urine 250 Urine, Voided 250
--- NOTE | 2017-05-27 14:37 | CP.PCM.PN ---
Subjective - Date & Time of Evaluation Date of Evaluation: 05/27/17 Time of Evaluation: 14:37 - Subjective Subjective: ID Note- Pt. seen and examined today in ICU with his mother and brother at [facility]. pt. remains lethargic and jaundiced and abdominal distention. He state he gets abd pain after eating. denies any diarrhea. patient's mother and brother states they wish to transfer him to a cancer specialized hospital. Objective - Vital Signs/Intake and Output Vital Signs (last 24 hours): Temp Pulse Resp BP Pulse Ox 98.7 F 123 H 24 103/56 L 98 05/27/17 11:56 05/27/17 11:56 05/27/17 11:56 05/27/17 11:56 05/27/17 11:56 Intake and Output: 05/27/17 05/27/17 06:59 18:59 Intake Total 350 Output Total 250 Balance 100 - Medications Medications: Current Medications Acetaminophen (Tylenol 650mg/20.3ml Solution Ud) 650 mg PO Q4 PRN PRN Reason: Temperature Last Admin: 05/27/17 09:55 Dose: 650 mg Albumin Human (Albumin Human 25% (12.5 Gm/50 Ml)) 12.5 gm IV Q8 [facility] Stop: 05/28/17 09:00 Last Admin: 05/27/17 10:19 Dose: 12.5 gm Atovaquone (Mepron) 1,500 mg PO DAILY [facility] PRN Reason: Protocol Last Admin: 05/27/17 12:05 Dose: 1,500 mg Furosemide (Lasix) 40 mg IVP DAILY [facility] Last Admin: 05/27/17 09:53 Dose: 40 mg Home Med (Patient's Own Medication) 1 unit PO DAILY [facility] Last Admin: 05/27/17 12:04 Dose: 1 unit Meropenem 1 gm/ Sodium (Chloride) 100 mls @ 100 mls/hr IVPB Q8 [facility] PRN Reason: Protocol Last Admin: 05/27/17 10:16 Dose: 100 mls/hr Vancomycin HCl 1 gm/ Sodium (Chloride) 250 mls @ 125 mls/hr IVPB DAILY [facility] Last Admin: 05/27/17 10:32 Dose: 125 mls/hr Lidocaine (Lidoderm) 1 ea TD DAILY [facility] Last Admin: 05/27/17 09:30 Dose: 1 ea Metoprolol Tartrate (Lopressor) 25 mg PO Q12 [facility] Last Admin: 05/27/17 09:48 Dose: 25 mg Morphine Sulfate (Morphine) 2 mg IVP Q4 PRN PRN Reason: Pain, moderate (4-7) Last Admin: 05/23/17 14:45 Dose: 2 mg Nystatin (Nystatin Oral Susp) 5 ml PO QID [facility] Last Admin: 05/27/17 12:05 Dose: 5 ml Ondansetron HCl (Zofran Inj) 4 mg IVP Q6 PRN PRN Reason: Nausea/Vomiting Polyethylene Glycol (Miralax) 17 gm PO DAILY [facility] Saliva Substitute (First Magic Mouthwash) 5 ml PO Q4 PRN PRN Reason: Sore Throat Last Admin: 05/26/17 08:16 Dose: 5 ml Silver Sulfadiazine (Silvadene 1% 20 Gm) 0 ea TOP Q12 [facility] Spironolactone (Aldactone) 50 mg PO BID [facility] Last Admin: 05/27/17 09:53 Dose: 50 mg - Labs Labs: - Additional Findings Additional findings: - Constitutional Appears: Chronically Ill but is now jaundiced and more weak - Head Exam Head Exam: ATRAUMATIC - Eye Exam Eye Exam: EOMI, PERRL - Respiratory Exam Respiratory Exam: tachypnea Additional comments: slightly decreased breath sounds at the bases no wheezing - Cardiovascular Exam Cardiovascular Exam: tachycardic , +S1, +S2 - GI/Abdominal Exam Additional comments: distended generalized tenderness , + bowel sounds no guarding No rebound - Extremities Exam Additional comments: 2+ LE edema B/L - Neurological Exam Neurological exam: Alert, Oriented x 3 Laboratory Results - last 72 hr 05/23/17 05/24/17 05/24/17 05:22 14:27 17:00 WBC RBC Hgb Hct MCV MCH MCHC RDW Plt Count PT INR APTT Fibrinogen pCO2 26 L pO2 90 HCO3 22.3 ABG pH 7.48 H ABG Total CO2 20.2 L ABG O2 Saturation 100.8 H ABG O2 Content 11.8 L ABG Base Excess -3.4 L ABG Hemoglobin 8.5 L ABG Carboxyhemoglobin 2.4 H POC ABG HHb (Measured) -0.8 L ABG Methemoglobin 0.8 ABG O2 Capacity 11.7 L Terry Test Yes A-a O2 Difference 134.0 Hgb O2 Saturation 97.7 FiO2 36.0 Sodium Potassium Chloride Carbon Dioxide Anion Gap BUN Creatinine Est GFR ( Amer) Est GFR (Non-Af Amer) Random Glucose Lactic Acid Uric Acid Calcium Total Bilirubin 13.5 H Direct Bilirubin 10.5 H AST ALT Alkaline Phosphatase Total Protein Albumin Globulin Albumin/Globulin Ratio Procalcitonin TSH 3rd Generation Urine Osmolality Ur Random Creatinine Ur Random Sodium Vancomycin Trough C. difficile Ag & Toxin Hepatitis A IgM Ab Negative Hep Bs Antigen Negative Hep B Core IgM Ab Negative Hepatitis C Antibody Negative 05/25/17 05/25/17 05/25/17 04:45 04:45 04:45 WBC 0.6 L* D RBC 3.38 L Hgb 8.9 L Hct 26.7 L MCV 78.9 L MCH 26.3 L MCHC 33.3 RDW 19.2 H Plt Count 26 L* PT INR APTT Fibrinogen pCO2 pO2 HCO3 ABG pH ABG Total CO2 ABG O2 Saturation ABG O2 Content ABG Base Excess ABG Hemoglobin ABG Carboxyhemoglobin POC ABG HHb (Measured) ABG Methemoglobin ABG O2 Capacity Terry Test A-a O2 Difference Hgb O2 Saturation FiO2 Sodium 131 L Potassium 4.3 Chloride 101 Carbon Dioxide 18 L Anion Gap 16 BUN 53 H Creatinine 1.1 Est GFR ( Amer) > 60 Est GFR (Non-Af Amer) > 60 Random Glucose 112 H Lactic Acid Uric Acid Calcium 7.6 L Total Bilirubin 14.1 H Direct Bilirubin 12.7 H AST 44 ALT 53 Alkaline Phosphatase 936 H Total Protein 5.1 L Albumin 2.0 L Globulin 3.1 Albumin/Globulin Ratio 0.6 L Procalcitonin 29.57 H TSH 3rd Generation 1.27 Urine Osmolality Ur Random Creatinine Ur Random Sodium Vancomycin Trough C. difficile Ag & Toxin Hepatitis A IgM Ab Hep Bs Antigen Hep B Core IgM Ab Hepatitis C Antibody 05/25/17 05/25/17 05/25/17 04:45 04:45 08:28 WBC RBC Hgb Hct MCV MCH MCHC RDW Plt Count PT INR APTT Fibrinogen pCO2 pO2 HCO3 ABG pH ABG Total CO2 ABG O2 Saturation ABG O2 Content ABG Base Excess ABG Hemoglobin ABG Carboxyhemoglobin POC ABG HHb (Measured) ABG Methemoglobin ABG O2 Capacity Terry Test A-a O2 Difference Hgb O2 Saturation FiO2 Sodium Potassium Chloride Carbon Dioxide Anion Gap BUN Creatinine Est GFR ( Amer) Est GFR (Non-Af Amer) Random Glucose Lactic Acid 1.5 Uric Acid Calcium Total Bilirubin Direct Bilirubin AST ALT Alkaline Phosphatase Total Protein Albumin Globulin Albumin/Globulin Ratio Procalcitonin TSH 3rd Generation Urine Osmolality Ur Random Creatinine Ur Random Sodium Vancomycin Trough 6.4 C. difficile Ag & Toxin Negative Hepatitis A IgM Ab Hep Bs Antigen Hep B Core IgM Ab Hepatitis C Antibody 05/26/17 05/26/17 05/26/17 04:20 04:20 12:51 WBC 0.2 L* D RBC 4.03 L Hgb 10.4 L Hct 32.3 L MCV 80.0 MCH 25.9 L MCHC 32.4 L RDW 19.2 H Plt Count 31 L PT INR APTT Fibrinogen pCO2 pO2 HCO3 ABG pH ABG Total CO2 ABG O2 Saturation ABG O2 Content ABG Base Excess ABG Hemoglobin ABG Carboxyhemoglobin POC ABG HHb (Measured) ABG Methemoglobin ABG O2 Capacity Terry Test A-a O2 Difference Hgb O2 Saturation FiO2 Sodium 133 Potassium 4.3 Chloride 99 Carbon Dioxide 18 L Anion Gap 20 BUN 61 H Creatinine 1.6 H Est GFR ( Amer) 59 Est GFR (Non-Af Amer) 48 Random Glucose 121 H Lactic Acid Uric Acid 5.0 Calcium 8.4 Total Bilirubin Direct Bilirubin AST ALT Alkaline Phosphatase Total Protein Albumin Globulin Albumin/Globulin Ratio Procalcitonin TSH 3rd Generation Urine Osmolality 426 Ur Random Creatinine 54.0 Ur Random Sodium 36 Vancomycin Trough C. difficile Ag & Toxin Hepatitis A IgM Ab Hep Bs Antigen Hep B Core IgM Ab Hepatitis C Antibody 05/26/17 05/27/17 05/27/17 15:32 04:20 04:20 WBC 0.0 L* D RBC 3.08 L Hgb 8.1 L D Hct 24.2 L MCV 78.7 L MCH 26.3 L MCHC 33.4 RDW 18.9 H Plt Count 13 L* D PT 21.8 H INR 1.9 H APTT 47.9 H Fibrinogen 694 H* pCO2 pO2 HCO3 ABG pH ABG Total CO2 ABG O2 Saturation ABG O2 Content ABG Base Excess ABG Hemoglobin ABG Carboxyhemoglobin POC ABG HHb (Measured) ABG Methemoglobin ABG O2 Capacity Terry Test A-a O2 Difference Hgb O2 Saturation FiO2 Sodium Potassium Chloride Carbon Dioxide Anion Gap BUN Creatinine Est GFR ( Amer) Est GFR (Non-Af Amer) Random Glucose Lactic Acid Uric Acid Calcium Total Bilirubin Direct Bilirubin AST ALT Alkaline Phosphatase Total Protein Albumin Globulin Albumin/Globulin Ratio Procalcitonin 33.30 H TSH 3rd Generation Urine Osmolality Ur Random Creatinine Ur Random Sodium Vancomycin Trough C. difficile Ag & Toxin Hepatitis A IgM Ab Hep Bs Antigen Hep B Core IgM Ab Hepatitis C Antibody 05/27/17 05/27/17 04:20 09:41 WBC RBC Hgb Hct MCV MCH MCHC RDW Plt Count PT INR APTT Fibrinogen pCO2 pO2 HCO3 ABG pH ABG Total CO2 ABG O2 Saturation ABG O2 Content ABG Base Excess ABG Hemoglobin ABG Carboxyhemoglobin POC ABG HHb (Measured) ABG Methemoglobin ABG O2 Capacity Terry Test A-a O2 Difference Hgb O2 Saturation FiO2 Sodium 130 L Potassium 4.0 Chloride 98 Carbon Dioxide 18 L Anion Gap 18 BUN 67 H Creatinine 1.9 H Est GFR ( Amer) 48 Est GFR (Non-Af Amer) 40 Random Glucose 115 H Lactic Acid Uric Acid Calcium 7.9 L Total Bilirubin 13.3 H Direct Bilirubin 11.7 H AST 28 ALT 48 Alkaline Phosphatase 877 H Total Protein 5.1 L Albumin 2.0 L Globulin 3.1 Albumin/Globulin Ratio 0.6 L Procalcitonin TSH 3rd Generation Urine Osmolality Ur Random Creatinine Ur Random Sodium Vancomycin Trough C. difficile Ag & Toxin Hepatitis A IgM Ab Hep Bs Antigen Hep B Core IgM Ab Hepatitis C Antibody Microbiology 05/23/17 17:41 Blood-Venous Blood Culture - Preliminary NO GROWTH AFTER 3 DAYS 05/23/17 17:41 Blood-Venous Blood Culture - Preliminary NO GROWTH AFTER 3 DAYS 05/24/17 22:03 Nose MRSA Culture (Admit) - Final MRSA NOT DETECTED 05/20/17 17:32 Blood-Venous Blood Culture - Final NO GROWTH AFTER 5 DAYS 05/20/17 17:32 Blood-Venous Gram Stain - Final TEST NOT PERFORMED 05/21/17 10:30 Urine,Random Urine Culture - Final No Growth (<1,000 CFU/ML) Assessment and Plan (1) HIV disease Status: Acute (2) Hodgkin's lymphoma Status: Acute (3) Anasarca Status: Acute (4) Fever Status: Acute - Assessment and Plan (Free Text) Assessment: A/P- 37 year old male with HIV f/u at [facility] on [address] with UD VL but CD4-17 , newly diagnosed stage $ Hodgkin;s lymphoma s/p first chemo yesterday admitted with weakness. fevers persist tachycardic, jaundiced and tachypneic anasarca all blood and urine cx negative to date pt. kept on empiric broad spectrum IV abx for now since his immunesuppressed and likely will become neutropenic post chemo. TTE negative for vegetations as per report. pancytopneic abd xray- dilated small bowel as per report. stool c.diff- negative wbc- 0 today plan- continue with empiric IV vancomycin day #11 since pt. is immunocompromised / neutroprnic and febrile. keep vanco trough <15. continue with empiric meropnem day #9 to cover for nosocomial pathogens since pt. was recently hospitalized and is severely neutropenic post chemo. advise GI evaluation advise to hold off on eating solids pending clearance by GI. continue with empiric Neutropenic precautions and since wbc is 0 today advise to add empiric antifungal as well. will start micafungin today. all above d/w patient and his mother who is at bedside and with industrial analyst and Dr.Pierre Morelos at length. condition guarded. ICU time 50 minutes.
[2017-05-27] MEDS ORDERED: Micafungin 100 MG in Sodium Chloride 0.9% 100 ML IVPB SCH ×2 (16:00→21:00)
[2017-05-27] MEDS ORDERED: Hydrocortisone- 50 MG in Sodium Chloride 0.9% 100 ML IV ONE (17:09)
--- NOTE | 2017-05-27 17:12 | CP.CCUPN ---
CCU Subjective - Physician Review Subjective (Free Text): Probable Transfusion reaction noted during platelets infusing into patient. Patient noted to be shivering with teeth chattering, body temp 99.9F and Platelet unit [facility] near completion. No other systemic manifestation noted, vitals stable. Shivering dissipated 10 minutes after transfusion halted. Transfusion stopped at this point and transfusion reaction protocol initiated. Discussed with HemOnc, will give Hydrocortisone now and resume platelet transfusion.
[2017-05-27] MEDS ORDERED: Acetaminophen 650mg/20.3ml solution UD PO ONE (17:17)
[2017-05-27] MEDS ORDERED: DiphenhydrAMINE 50 mg/ml Inj IVP ONE (17:20)
[2017-05-27] MEDS: Albumin Human 25% (12.5 gm/50 ml) IV SCH (22:50)
[2017-05-28] MEDS: Meropenem 1 GM in Sodium Chloride 0.9% 100 ML IVPB SCH ×3 (01:28→16:13)
[2017-05-28] MEDS: Albumin Human 25% (12.5 gm/50 ml) IV SCH ×3 (06:07→22:44)
[2017-05-28 07:25] LABS: URIC ACID 5.2 mg/Dl (3.5-8.5)
[2017-05-28 07:35] LABS: EOS % 0.8 % (0.0-4.0); HEMOGLOBIN 7.2 g/dL (12.0-18.0); LYMPH % 73.4 % (20.0-40.0); MEAN CELL VOLUME 80.1 fl (80.0-94.0); MEAN CORPUSCULAR HEMOGLOBIN 26.9 pg (27.0-31.0); MEAN CORPUSCULAR HGB CONC 33.6 g/dL (33.0-37.0); MEAN PLATELET VOLUME 10.1 fl (7.2-11.7); MONO % 19.5 % (0.0-10.0); NEUT % 6.3 % (50.0-75.0); NRBC % 1.4 % (0.0-0.0); RBC 2.66 Mil/uL (4.40-5.90); RED CELL DISTRIBUTION WIDTH 18.6 % (11.5-14.5)
[2017-05-28 07:40] LABS: PLATELET COUNT 17 K/uL (130-400); WHITE BLOOD COUNT 0.1 K/uL (4.8-10.8)
--- NOTE | 2017-05-28 07:46 | CP.CCUPN ---
CCU Subjective - Physician Review Events Since Last Encounter (Free Text): 05/28/17 07:41 Patient awake, no distress, on high flow O2 supplement, no vomiting, no chest pain, events reviewed CCU Objective - Vital Signs / Intake & Output Vital Signs (Last 4 hours): Vital Signs Temp Pulse Resp BP Pulse Ox 05/28/17 06:00 80 20 108/61 95 05/28/17 05:04 21 05/28/17 04:00 97.9 F 78 18 104/59 L 98 Intake and Output (Last 8hrs): Intake & Output 05/27/17 05/28/17 05/28/17 22:59 06:59 14:59 Intake Total 100 475 Output Total 200 Balance 100 275 Intake: Intake, Piggyback 100 150 Blood Product 325 Output: Urine 200 Urine, Voided 200 - Physical Exam Head: Positive for: Atraumatic, Normocephalic Pupils: Positive for: PERRL. Negative for: Sluggish Extroacular Muscles: Positive for: EOMI Conjunctiva: Positive for: Normal, Icteric. Negative for: Injected Ears: Positive for: Normal Mouth: Positive for: Moist Mucous Membranes Pharnyx: Positive for: Normal Nose (External): Positive for: Atraumatic Neck: Positive for: Normal Range of Motion, Trachea Midline. Negative for: Meningeal Signs, MIDLINE TENDERNESS, Paraspinal Tenderness, JVD, Lymphadenopathy , Bruit, Other Respiratory/Chest: Positive for: Clear to Auscultation, Good Air Exchange, Decreased Breath Sounds, Tachypneic. Negative for: Respiratory Distress, Accessory Muscle Use, Wheezes, Rales, Retracting, Rhonchi Cardiovascular: Positive for: Regular Rate and Rhythm, Normal S1, S2, Peripheal Pulses Present, Tachycardic. Negative for: Murmurs Abdomen: Positive for: Normal Bowel Sounds. Negative for: Tenderness, Distention Back: Negative for: CVA Tenderness Upper Extremity: Positive for: Normal Inspection. Negative for: Cyanosis, Edema , Normal ROM Lower Extremity: Positive for: Normal Inspection, NORMAL PULSES. Negative for: Edema, CALF TENDERNESS Neurological: Positive for: GCS=15, CN II-XII Intact, Speech Normal, Motor Func Grossly Intact, Normal Sensory Function Psychiatric: Positive for: Alert, Oriented x 3 - Medications Active Medications: Active Medications Generic Name Dose Route Start Last Admin Trade Name Freq PRN Reason Stop Dose Admin Acetaminophen 650 mg 05/26/17 10:09 05/27/17 17:58 Tylenol 650mg/20.3ml Solution Ud PO 650 mg Q4 PRN Administration Temperature Albumin Human 12.5 gm 05/27/17 22:45 05/28/17 06:07 Albumin Human 25% (12.5 Gm/50 Ml) IV 12.5 gm Q8@0630,1430,2230 DARRION Administration Atovaquone 1,500 mg 05/21/17 09:00 05/27/17 12:05 Mepron PO 1,500 mg DAILY DARRION Administration Protocol Furosemide 40 mg 05/24/17 09:00 05/27/17 09:53 Lasix IVP 40 mg DAILY D[facility]ION Administration Home Med 1 unit 05/21/17 09:00 05/27/17 12:04 Patient's Own Medication PO 1 unit DAILY D[facility]ION Administration Meropenem 1 gm/ Sodium 100 mls @ 100 mls/hr 05/21/17 01:00 05/28/17 01:28 Chloride IVPB 100 mls/hr Q8 DARRION Administration Protocol Vancomycin HCl 1 gm/ Sodium 250 mls @ 125 mls/hr 05/21/17 09:00 05/27/17 10: 32 Chloride IVPB 125 mls/hr DAILY [facility] Administration Micafungin Sodium 100 mg/ 100 mls @ 100 mls/hr 05/27/17 21:00 05/27/17 22:20 Sodium Chloride IVPB Not Given DAILY@2100 DARRION Protocol Lidocaine 1 ea 05/23/17 11:30 05/27/17 09:30 Lidoderm TD 1 ea DAILY D[facility] Administration Metoprolol Tartrate 25 mg 05/24/17 21:00 05/27/17 22:45 Lopressor PO 25 mg Q12 D[facility] Administration Morphine Sulfate 2 mg 05/23/17 13:17 05/23/17 14:45 Morphine IVP 2 mg Q4 PRN Administration Pain, moderate (4-7) Nystatin 5 ml 05/22/17 13:00 05/27/17 22:51 Nystatin Oral Susp PO 5 ml QID [facility] Administration Ondansetron HCl 4 mg 05/20/17 19:35 Zofran Inj IVP Q6 PRN Nausea/Vomiting Polyethylene Glycol 17 gm 05/28/17 09:00 Miralax PO DAILY [facility] Saliva Substitute 5 ml 05/21/17 15:34 05/26/17 08:16 First Magic Mouthwash PO 5 ml Q4 PRN Administration Sore Throat Silver Sulfadiazine 0 ea 05/26/17 21:00 Silvadene 1% 20 Gm TOP Q12 D[facility]ION Spironolactone 50 mg 05/27/17 08:30 05/27/17 19:47 Aldactone PO 50 mg BID D[facility]ION Administration - Patient Studies Lab Studies: Microbiology Studies 05/23/17 17:41 Blood Culture - Preliminary Blood-Venous NO GROWTH AFTER 4 DAYS 05/23/17 17:41 Blood Culture - Preliminary Blood-Venous NO GROWTH AFTER 4 DAYS Lab Studies 05/28/17 05/28/17 05/27/17 Range/Units 06:15 06:15 22:59 WBC 0.1 L* D (4.8-10.8) K/uL RBC 2.66 L (4.40-5.90) Mil/uL Hgb 7.2 L (12.0-18.0) g/dL Hct 21.3 L (35.0-51.0) % MCV 80.1 (80.0-94.0) fl MCH 26.9 L (27.0-31.0) pg MCHC 33.6 (33.0-37.0) g/dL RDW 18.6 H (11.5-14.5) % Plt Count 17 L* (130-400) K/uL MPV 10.1 (7.2-11.7) fl Neut % (Auto) 6.3 L (50.0-75.0) % Lymph % (Auto) 73.4 H (20.0-40.0) % [place] % (Auto) 19.5 H (0.0-10.0) % Eos % (Auto) 0.8 (0.0-4.0) % Baso % (Auto) 0.0 (0.0-2.0) % Neut # (Auto) 0.0 L (1.8-7.0) K/uL Lymph # (Auto) 0.0 L (1.0-4.3) K/uL [place] # (Auto) 0.0 (0.0-0.8) K/uL Eos # (Auto) 0.0 (0.0-0.7) K/uL Baso # (Auto) 0.0 (0.0-0.2) K/uL Sodium 133 (132-148) mmol/l Potassium 4.5 (3.6-5.0) MMOL/L Chloride 99 (98-107) mmol/L Carbon Dioxide 19 L (22-30) mmol/L Anion Gap 20 (10-20) BUN 74 H (9-20) mg/dl Creatinine 2.2 H (0.8-1.5) mg/dl Est GFR ( Amer) 41 Est GFR (Non-Af Amer) 33 Random Glucose 116 H (75-110) mg/dL Uric Acid 5.2 (3.5-8.5) mg/Dl Calcium 8.0 L (8.4-10.2) mg/dL Total Bilirubin (0.2-1.3) mg/dl Direct Bilirubin (0.0-0.4) mg/ml AST (17-59) U/L ALT (21-72) U/L Alkaline Phosphatase (38-126) U/L Total Protein (6.3-8.2) G/DL Albumin (3.5-5.0) g/dL Globulin (2.2-3.9) gm/dL Albumin/Globulin Ratio (1.0-2.1) Blood Type O POSITIVE Antibody Screen Negative Crossmatch See Detail BBK History Checked Patient has bt 05/27/17 Range/Units 09:41 WBC (4.8-10.8) K/uL RBC (4.40-5.90) Mil/uL Hgb (12.0-18.0) g/dL Hct (35.0-51.0) % MCV (80.0-94.0) fl MCH (27.0-31.0) pg MCHC (33.0-37.0) g/dL RDW (11.5-14.5) % Plt Count (130-400) K/uL MPV (7.2-11.7) fl Neut % (Auto) (50.0-75.0) % Lymph % (Auto) (20.0-40.0) % [place] % (Auto) (0.0-10.0) % Eos % (Auto) (0.0-4.0) % Baso % (Auto) (0.0-2.0) % Neut # (Auto) (1.8-7.0) K/uL Lymph # (Auto) (1.0-4.3) K/uL [place] # (Auto) (0.0-0.8) K/uL Eos # (Auto) (0.0-0.7) K/uL Baso # (Auto) (0.0-0.2) K/uL Sodium (132-148) mmol/l Potassium (3.6-5.0) MMOL/L Chloride (98-107) mmol/L Carbon Dioxide (22-30) mmol/L Anion Gap (10-20) BUN (9-20) mg/dl Creatinine (0.8-1.5) mg/dl Est GFR ( Amer) Est GFR (Non-Af Amer) Random Glucose (75-110) mg/dL Uric Acid (3.5-8.5) mg/Dl Calcium (8.4-10.2) mg/dL Total Bilirubin 13.3 H (0.2-1.3) mg/dl Direct Bilirubin 11.7 H (0.0-0.4) mg/ml AST 28 (17-59) U/L ALT 48 (21-72) U/L Alkaline Phosphatase 877 H (38-126) U/L Total Protein 5.1 L (6.3-8.2) G/DL Albumin 2.0 L (3.5-5.0) g/dL Globulin 3.1 (2.2-3.9) gm/dL Albumin/Globulin Ratio 0.6 L (1.0-2.1) Blood Type Antibody Screen Crossmatch BBK History Checked Laboratory Results - last 24 hr 05/27/17 05/27/17 05/28/17 09:41 22:59 06:15 WBC RBC Hgb Hct MCV MCH MCHC RDW Plt Count MPV Neut % (Auto) Lymph % (Auto) [place] % (Auto) Eos % (Auto) Baso % (Auto) Neut # (Auto) Lymph # (Auto) [place] # (Auto) Eos # (Auto) Baso # (Auto) Sodium 133 Potassium 4.5 Chloride 99 Carbon Dioxide 19 L Anion Gap 20 BUN 74 H Creatinine 2.2 H Est GFR ( Amer) 41 Est GFR (Non-Af Amer) 33 Random Glucose 116 H Uric Acid 5.2 Calcium 8.0 L Total Bilirubin 13.3 H Direct Bilirubin 11.7 H AST 28 ALT 48 Alkaline Phosphatase 877 H Total Protein 5.1 L Albumin 2.0 L Globulin 3.1 Albumin/Globulin Ratio 0.6 L Blood Type O POSITIVE Antibody Screen Negative Crossmatch See Detail BBK History Checked Patient has bt 05/28/17 06:15 WBC 0.1 L* D RBC 2.66 L Hgb 7.2 L Hct 21.3 L MCV 80.1 MCH 26.9 L MCHC 33.6 RDW 18.6 H Plt Count 17 L* MPV 10.1 Neut % (Auto) 6.3 L Lymph % (Auto) 73.4 H [place] % (Auto) 19.5 H Eos % (Auto) 0.8 Baso % (Auto) 0.0 Neut # (Auto) 0.0 L Lymph # (Auto) 0.0 L [place] # (Auto) 0.0 Eos # (Auto) 0.0 Baso # (Auto) 0.0 Sodium Potassium Chloride Carbon Dioxide Anion Gap BUN Creatinine Est GFR ( Amer) Est GFR (Non-Af Amer) Random Glucose Uric Acid Calcium Total Bilirubin Direct Bilirubin AST ALT Alkaline Phosphatase Total Protein Albumin Globulin Albumin/Globulin Ratio Blood Type Antibody Screen Crossmatch BBK History Checked Critical Care Progress Note - Nutrition Nutrition: Nutrition Category Date Time Status NPO Diet [DIET] Diets 05/27/17 Dinner Active Assessment/Plan - Assessment and Plan (Free Text) Assessment: A/P Pancytopenia, fever, jaundice, Hodgkin lymphoma s/p chemotherapy, ?metastatic disease, HIV, ascities - Antibiotics - O2 supplement - Oncology follow up - GI follow up - ID follow up - Continue meds - Pulmonary toilets - Poor prognosis
--- NOTE | 2017-05-28 08:07 | CP.PCM.PN ---
Subjective - Date & Time of Evaluation Date of Evaluation: 05/28/17 Time of Evaluation: 08:07 - Subjective Subjective: ICU day 5 Patient seen and examined in this morning. no acute events during night. Reports feeling weak, less tachypneic but reports mild sob, resp effort noted. Increasing anasarca, jaundice. Afebrile last night. Objective - Vital Signs/Intake and Output Vital Signs (last 24 hours): Temp Pulse Resp BP Pulse Ox 97.9 F 80 20 108/61 95 05/28/17 04:00 05/28/17 06:00 05/28/17 06:00 05/28/17 06:00 05/28/17 06:00 Intake and Output: 05/28/17 05/28/17 06:59 18:59 Intake Total 575 Output Total 200 Balance 375 - Medications Medications: Current Medications Acetaminophen (Tylenol 650mg/20.3ml Solution Ud) 650 mg PO Q4 PRN PRN Reason: Temperature Last Admin: 05/27/17 17:58 Dose: 650 mg Albumin Human (Albumin Human 25% (12.5 Gm/50 Ml)) 12.5 gm IV Q8@0630,1430,2230 [facility] Last Admin: 05/28/17 06:07 Dose: 12.5 gm Atovaquone (Mepron) 1,500 mg PO DAILY D[facility]ION PRN Reason: Protocol Last Admin: 05/27/17 12:05 Dose: 1,500 mg Furosemide (Lasix) 40 mg IVP DAILY [facility] Last Admin: 05/27/17 09:53 Dose: 40 mg Home Med (Patient's Own Medication) 1 unit PO DAILY D[facility]ION Last Admin: 05/27/17 12:04 Dose: 1 unit Meropenem 1 gm/ Sodium (Chloride) 100 mls @ 100 mls/hr IVPB Q8 [facility]ION PRN Reason: Protocol Last Admin: 05/28/17 01:28 Dose: 100 mls/hr Vancomycin HCl 1 gm/ Sodium (Chloride) 250 mls @ 125 mls/hr IVPB DAILY [facility] Last Admin: 05/27/17 10:32 Dose: 125 mls/hr Micafungin Sodium 100 mg/ (Sodium Chloride) 100 mls @ 100 mls/hr IVPB DAILY@ 2100 [facility] PRN Reason: Protocol Last Admin: 05/27/17 22:20 Dose: Not Given Lidocaine (Lidoderm) 1 ea TD DAILY [facility] Last Admin: 05/27/17 09:30 Dose: 1 ea Metoprolol Tartrate (Lopressor) 25 mg PO Q12 [facility] Last Admin: 05/27/17 22:45 Dose: 25 mg Morphine Sulfate (Morphine) 2 mg IVP Q4 PRN PRN Reason: Pain, moderate (4-7) Last Admin: 05/23/17 14:45 Dose: 2 mg Nystatin (Nystatin Oral Susp) 5 ml PO QID [facility] Last Admin: 05/27/17 22:51 Dose: 5 ml Ondansetron HCl (Zofran Inj) 4 mg IVP Q6 PRN PRN Reason: Nausea/Vomiting Polyethylene Glycol (Miralax) 17 gm PO DAILY [facility] Saliva Substitute (First Magic Mouthwash) 5 ml PO Q4 PRN PRN Reason: Sore Throat Last Admin: 05/26/17 08:16 Dose: 5 ml Silver Sulfadiazine (Silvadene 1% 20 Gm) 0 ea TOP Q12 [facility] Spironolactone (Aldactone) 50 mg PO BID [facility] Last Admin: 05/27/17 19:47 Dose: 50 mg - Labs Labs: 05/28/17 06:15 05/28/17 06:15 PT 21.8 Seconds (9.8-13.1) H 05/27/17 04:20 INR 1.9 (0.9-1.2) H 05/27/17 04:20 APTT 47.9 Seconds (25.6-37.1) H 05/27/17 04:20 - Constitutional Appears: In Acute Distress, Cachectic - Eye Exam Eye Exam: Scleral icterus. absent: Nystagmus - ENT Exam ENT Exam: Mucous Membranes Dry - Respiratory Exam Respiratory Exam: Rales (scatery noted on L lung base) - Cardiovascular Exam Cardiovascular Exam: Tachycardia, REGULAR RHYTHM, +S1, +S2. absent: Murmur - GI/Abdominal Exam GI & Abdominal Exam: Distended, Tenderness - Exam Exam: Scrotal Swelling - Extremities Exam Additional comments: Generalized b/l LE edema. - Neurological Exam Neurological Exam: Alert, Awake, Oriented x3 - Psychiatric Exam Psychiatric exam: Anxious - Skin Additional comments: Jaundiced. Assessment and Plan - Assessment and Plan (Free Text) Assessment: 37yo M with PMHx of HIV/AIDS and Hodgkins Lymphoma stage 4 s/p chemo cycle #1 admitted for persistent fevers and abdominal distention. Continue spike fevers. Anasarca, Hyperbilirubinemia. Tachypnea. ICU day 5 Plan: c/w empiric IV abx and opportunistic infections prophylaxis . Fluids restriction, c/w aldactone, s/p platelets transfusion. HFNC 20 LMP. 1- Fevers, persistent - most likely 2/2 to malignancy - Tylenol prn - ID on board, Recs appreciated -c/w Vancomycin and Meropenem IV as prophylaxis (day 11) - blood and urine culture negative - CXR 05/26: improving in b/l lower infiltrates, no pleural effusions noted. 2- S4 lymphoma - s/p chemo cycle #1 05/20/17: ABVD - Hematology/Onc on board, Recs appreciated - Uric acid 5 (wnl) 05/26 3- Tachycardia/Tachypnea - RR 30-55 - On HFNC 20 LPM at 40% oxygen - c/w metoprolol succ 25 mg PO daily 4- Anarsarca - Nephro Dr Graves recs appreciated: -strict oral fluids restriction -c/w Aldactone 50mg BID -albumin repletion Q8 x 3 days 5- Pancytopenia - most likely 2/2 malignancy - transfuse pRBC if Hgb <8, FFPE if plt<10 - Granix daily for 3 days - s/p 1 unit PRBC, pending 2 more - f/u cbc after transfusion - s/p platelet transfusion 1 unit 6- Acute kidney injury, new - BUN/Cr: 74/2.2 - Na 133 - K 4.5 - fluids restriction as per Nephro 7- Elevated LFTs/bilirubin with liver mets - liver US wnl - GI Dr Austin on board - secondary to chemo/malignancy - MRCP 05/25: negative for biliary obstruction. - ABD xrays: bowel loops distention, possible early bowel obstruction. 8- oral thrush - c/w PO nystatin - magic mouth wash 9- HIV/AIDS - CD4 count <20, CD4 6% (05/17/17) - C/W current HIV treatment (pt owns medications) - per ID stopped azithro due to interactions w/ chemo (last dose 05/18/17) - c/w Mepron (atovaquone) 1500 mg PO daily (PCP prophylaxis) 10- DVT prophylaxis -no pharmacological agents 2/2 thrombocytopenia -SCDs 11- Code -Full, confirmed with patient 05/26/17
[2017-05-28] MEDS: BIKTARVY PO SCH (09:10)
[2017-05-28] MEDS: Lidocaine 5% Patch TD SCH (09:11)
[2017-05-28] MEDS: Atovaquone 750 mg/5 ml Susp UD PO SCH (09:12)
[2017-05-28] MEDS: POLYETHYLENE GLYCOL 3350 17 GM/Dose PACKET PO SCH (09:12)
[2017-05-28] MEDS: Nystatin 100,000 Units/ml Oral Susp 5 ml UD PO SCH ×4 (09:13→21:59)
[2017-05-28 11:31] LABS: NEUTROPHIL 1 % (42-75)
[2017-05-28 11:32] LABS: ANISOCYTOSIS MODERATE; LYMPHOCYTE 8 % (20-50); MONOCYTE 1 % (0-10); PLATELET ESTIMATE MARKEDLY DECREASED (NORMAL); POIKILOCYTOSIS SLIGHT
[2017-05-28 11:33] LABS: HYPOCHROMIC MODERATE; OVALOCYTES SLIGHT; SCHISTOCYTES SLIGHT; TEARDROP CELLS SLIGHT
--- NOTE | 2017-05-28 11:51 | CP.PCM.PN ---
Subjective - Date & Time of Evaluation Date of Evaluation: 05/28/17 Time of Evaluation: 11:30 - Subjective Subjective: ID Note- pt. seen and examined today in ICU. remains lethargic and jaundiced. slightly less distention of the abdomen today. less tachypneic. pt's mother at his bedside. denies any diarrhea. afebrile so far today. Objective - Vital Signs/Intake and Output Vital Signs (last 24 hours): Temp Pulse Resp BP Pulse Ox 97.4 F L 84 31 H 126/79 98 05/28/17 08:00 05/28/17 10:00 05/28/17 10:00 05/28/17 10:00 05/28/17 10:00 Intake and Output: 05/28/17 05/28/17 06:59 18:59 Intake Total 575 350 Output Total 200 550 Balance 375 -200 - Medications Medications: Current Medications Acetaminophen (Tylenol 650mg/20.3ml Solution Ud) 650 mg PO Q4 PRN PRN Reason: Temperature Last Admin: 05/27/17 17:58 Dose: 650 mg Albumin Human (Albumin Human 25% (12.5 Gm/50 Ml)) 12.5 gm IV Q8@0630,1430,2230 [facility] Last Admin: 05/28/17 06:07 Dose: 12.5 gm Atovaquone (Mepron) 1,500 mg PO DAILY [facility] PRN Reason: Protocol Last Admin: 05/28/17 09:12 Dose: Not Given Furosemide (Lasix) 40 mg IVP DAILY [facility] Last Admin: 05/28/17 09:10 Dose: 40 mg Home Med (Patient's Own Medication) 1 unit PO DAILY [facility] Last Admin: 05/28/17 09:10 Dose: 1 unit Meropenem 1 gm/ Sodium (Chloride) 100 mls @ 100 mls/hr IVPB Q8 [facility] PRN Reason: Protocol Last Admin: 05/28/17 01:28 Dose: 100 mls/hr Vancomycin HCl 1 gm/ Sodium (Chloride) 250 mls @ 125 mls/hr IVPB DAILY [facility] Last Admin: 05/28/17 09:13 Dose: 125 mls/hr Micafungin Sodium 100 mg/ (Sodium Chloride) 100 mls @ 100 mls/hr IVPB DAILY@ 2100 [facility] PRN Reason: Protocol Last Admin: 05/27/17 22:20 Dose: Not Given Lidocaine (Lidoderm) 1 ea TD DAILY [facility] Last Admin: 05/28/17 09:11 Dose: 1 ea Metoprolol Tartrate (Lopressor) 25 mg PO Q12 [facility] Last Admin: 05/28/17 09:09 Dose: 25 mg Morphine Sulfate (Morphine) 2 mg IVP Q4 PRN PRN Reason: Pain, moderate (4-7) Last Admin: 05/23/17 14:45 Dose: 2 mg Nystatin (Nystatin Oral Susp) 5 ml PO QID [facility] Last Admin: 05/28/17 09:13 Dose: 5 ml Ondansetron HCl (Zofran Inj) 4 mg IVP Q6 PRN PRN Reason: Nausea/Vomiting Polyethylene Glycol (Miralax) 17 gm PO DAILY [facility] Last Admin: 05/28/17 09:12 Dose: 17 gm Saliva Substitute (First Magic Mouthwash) 5 ml PO Q4 PRN PRN Reason: Sore Throat Last Admin: 05/26/17 08:16 Dose: 5 ml Silver Sulfadiazine (Silvadene 1% 50 Gm) 1 applic TOP Q12 [facility] Spironolactone (Aldactone) 50 mg PO BID [facility] Last Admin: 05/28/17 09:09 Dose: 50 mg - Labs Labs: - Additional Findings Additional findings: - Constitutional Appears: Chronically Ill jaundiced and weak - Head Exam Head Exam: ATRAUMATIC - Eye Exam Eye Exam: EOMI, PERRL, icteric - Respiratory Exam Respiratory Exam: tachypnea Additional comments: slightly decreased breath sounds at the bases no wheezing - Cardiovascular Exam Cardiovascular Exam: tachycardic , +S1, +S2 - GI/Abdominal Exam Additional comments: minimally less distended than yesterday generalized tenderness , + bowel sounds no guarding No rebound - Extremities Exam Additional comments: 2+ LE edema B/L - Neurological Exam Neurological exam: Alert, Oriented x 3 Laboratory Results - last 72 hr 05/23/17 05/25/17 05/26/17 05:22 08:28 04:20 WBC RBC Hgb Hct MCV MCH MCHC RDW Plt Count MPV Neut % (Auto) Lymph % (Auto) Crenshaw % (Auto) Eos % (Auto) Baso % (Auto) Neut # (Auto) Lymph # (Auto) Crenshaw # (Auto) Eos # (Auto) Baso # (Auto) Neutrophils % (Manual) Lymphocytes % (Manual) Monocytes % (Manual) Platelet Estimate Hypochromasia (manual) Poikilocytosis (manual Anisocytosis (manual) Tear Drop Cells Ovalocytes Schistocytes PT INR APTT Fibrinogen pCO2 26 L pO2 90 HCO3 22.3 ABG pH 7.48 H ABG Total CO2 20.2 L ABG O2 Saturation 100.8 H ABG O2 Content 11.8 L ABG Base Excess -3.4 L ABG Hemoglobin 8.5 L ABG Carboxyhemoglobin 2.4 H POC ABG HHb (Measured) -0.8 L ABG Methemoglobin 0.8 ABG O2 Capacity 11.7 L Terry Test Yes A-a O2 Difference 134.0 Hgb O2 Saturation 97.7 FiO2 36.0 Sodium 133 Potassium 4.3 Chloride 99 Carbon Dioxide 18 L Anion Gap 20 BUN 61 H Creatinine 1.6 H Est GFR ( Amer) 59 Est GFR (Non-Af Amer) 48 Random Glucose 121 H Uric Acid 5.0 Calcium 8.4 Total Bilirubin Direct Bilirubin AST ALT Alkaline Phosphatase Total Protein Albumin Globulin Albumin/Globulin Ratio Procalcitonin Urine Osmolality Ur Random Creatinine Ur Random Sodium Vancomycin Trough C. difficile Ag & Toxin Negative Blood Type Antibody Screen Crossmatch BBK History Checked 05/26/17 05/26/17 05/26/17 04:20 12:51 15:32 WBC 0.2 L* D RBC 4.03 L Hgb 10.4 L Hct 32.3 L MCV 80.0 MCH 25.9 L MCHC 32.4 L RDW 19.2 H Plt Count 31 L MPV Neut % (Auto) Lymph % (Auto) Crenshaw % (Auto) Eos % (Auto) Baso % (Auto) Neut # (Auto) Lymph # (Auto) Crenshaw # (Auto) Eos # (Auto) Baso # (Auto) Neutrophils % (Manual) Lymphocytes % (Manual) Monocytes % (Manual) Platelet Estimate Hypochromasia (manual) Poikilocytosis (manual Anisocytosis (manual) Tear Drop Cells Ovalocytes Schistocytes PT INR APTT Fibrinogen pCO2 pO2 HCO3 ABG pH ABG Total CO2 ABG O2 Saturation ABG O2 Content ABG Base Excess ABG Hemoglobin ABG Carboxyhemoglobin POC ABG HHb (Measured) ABG Methemoglobin ABG O2 Capacity Terry Test A-a O2 Difference Hgb O2 Saturation FiO2 Sodium Potassium Chloride Carbon Dioxide Anion Gap BUN Creatinine Est GFR ( Amer) Est GFR (Non-Af Amer) Random Glucose Uric Acid Calcium Total Bilirubin Direct Bilirubin AST ALT Alkaline Phosphatase Total Protein Albumin Globulin Albumin/Globulin Ratio Procalcitonin 33.30 H Urine Osmolality 426 Ur Random Creatinine 54.0 Ur Random Sodium 36 Vancomycin Trough C. difficile Ag & Toxin Blood Type Antibody Screen Crossmatch BBK History Checked 05/27/17 05/27/17 05/27/17 04:20 04:20 04:20 WBC 0.0 L* D RBC 3.08 L Hgb 8.1 L D Hct 24.2 L MCV 78.7 L MCH 26.3 L MCHC 33.4 RDW 18.9 H Plt Count 13 L* D MPV Neut % (Auto) Lymph % (Auto) Crenshaw % (Auto) Eos % (Auto) Baso % (Auto) Neut # (Auto) Lymph # (Auto) Crenshaw # (Auto) Eos # (Auto) Baso # (Auto) Neutrophils % (Manual) Lymphocytes % (Manual) Monocytes % (Manual) Platelet Estimate Hypochromasia (manual) Poikilocytosis (manual Anisocytosis (manual) Tear Drop Cells Ovalocytes Schistocytes PT 21.8 H INR 1.9 H APTT 47.9 H Fibrinogen 694 H* pCO2 pO2 HCO3 ABG pH ABG Total CO2 ABG O2 Saturation ABG O2 Content ABG Base Excess ABG Hemoglobin ABG Carboxyhemoglobin POC ABG HHb (Measured) ABG Methemoglobin ABG O2 Capacity Terry Test A-a O2 Difference Hgb O2 Saturation FiO2 Sodium 130 L Potassium 4.0 Chloride 98 Carbon Dioxide 18 L Anion Gap 18 BUN 67 H Creatinine 1.9 H Est GFR ( Amer) 48 Est GFR (Non-Af Amer) 40 Random Glucose 115 H Uric Acid Calcium 7.9 L Total Bilirubin Direct Bilirubin AST ALT Alkaline Phosphatase Total Protein Albumin Globulin Albumin/Globulin Ratio Procalcitonin Urine Osmolality Ur Random Creatinine Ur Random Sodium Vancomycin Trough C. difficile Ag & Toxin Blood Type Antibody Screen Crossmatch BBK History Checked 05/27/17 05/27/17 05/28/17 09:41 22:59 06:15 WBC RBC Hgb Hct MCV MCH MCHC RDW Plt Count MPV Neut % (Auto) Lymph % (Auto) Crenshaw % (Auto) Eos % (Auto) Baso % (Auto) Neut # (Auto) Lymph # (Auto) Crenshaw # (Auto) Eos # (Auto) Baso # (Auto) Neutrophils % (Manual) Lymphocytes % (Manual) Monocytes % (Manual) Platelet Estimate Hypochromasia (manual) Poikilocytosis (manual Anisocytosis (manual) Tear Drop Cells Ovalocytes Schistocytes PT INR APTT Fibrinogen pCO2 pO2 HCO3 ABG pH ABG Total CO2 ABG O2 Saturation ABG O2 Content ABG Base Excess ABG Hemoglobin ABG Carboxyhemoglobin POC ABG HHb (Measured) ABG Methemoglobin ABG O2 Capacity Terry Test A-a O2 Difference Hgb O2 Saturation FiO2 Sodium 133 Potassium 4.5 Chloride 99 Carbon Dioxide 19 L Anion Gap 20 BUN 74 H Creatinine 2.2 H Est GFR ( Amer) 41 Est GFR (Non-Af Amer) 33 Random Glucose 116 H Uric Acid 5.2 Calcium 8.0 L Total Bilirubin 13.3 H Direct Bilirubin 11.7 H AST 28 ALT 48 Alkaline Phosphatase 877 H Total Protein 5.1 L Albumin 2.0 L Globulin 3.1 Albumin/Globulin Ratio 0.6 L Procalcitonin Urine Osmolality Ur Random Creatinine Ur Random Sodium Vancomycin Trough C. difficile Ag & Toxin Blood Type O POSITIVE Antibody Screen Negative Crossmatch See Detail BBK History Checked Patient has bt 05/28/17 05/28/17 06:15 06:15 WBC 0.1 L* D RBC 2.66 L Hgb 7.2 L Hct 21.3 L MCV 80.1 MCH 26.9 L MCHC 33.6 RDW 18.6 H Plt Count 17 L* MPV 10.1 Neut % (Auto) 6.3 L Lymph % (Auto) 73.4 H Crenshaw % (Auto) 19.5 H Eos % (Auto) 0.8 Baso % (Auto) 0.0 Neut # (Auto) 0.0 L Lymph # (Auto) 0.0 L Crenshaw # (Auto) 0.0 Eos # (Auto) 0.0 Baso # (Auto) 0.0 Neutrophils % (Manual) 1 L Lymphocytes % (Manual) 8 L Monocytes % (Manual) 1 Platelet Estimate Markedly decreased L Hypochromasia (manual) Moderate Poikilocytosis (manual Slight Anisocytosis (manual) Moderate Tear Drop Cells Slight Ovalocytes Slight Schistocytes Slight PT INR APTT Fibrinogen pCO2 pO2 HCO3 ABG pH ABG Total CO2 ABG O2 Saturation ABG O2 Content ABG Base Excess ABG Hemoglobin ABG Carboxyhemoglobin POC ABG HHb (Measured) ABG Methemoglobin ABG O2 Capacity Terry Test A-a O2 Difference Hgb O2 Saturation FiO2 Sodium Potassium Chloride Carbon Dioxide Anion Gap BUN Creatinine Est GFR ( Amer) Est GFR (Non-Af Amer) Random Glucose Uric Acid Calcium Total Bilirubin Direct Bilirubin AST ALT Alkaline Phosphatase Total Protein Albumin Globulin Albumin/Globulin Ratio Procalcitonin Urine Osmolality Ur Random Creatinine Ur Random Sodium Vancomycin Trough 13.5 H C. difficile Ag & Toxin Blood Type Antibody Screen Crossmatch BBK History Checked Microbiology 05/25/17 08:28 Stool Stool Culture - Final NO SALMONELLA, SHIGELLA OR CAMPYLOBACTER ISOLATED. 05/23/17 17:41 Blood-Venous Blood Culture - Preliminary NO GROWTH AFTER 4 DAYS 05/23/17 17:41 Blood-Venous Blood Culture - Preliminary NO GROWTH AFTER 4 DAYS 05/24/17 22:03 Nose MRSA Culture (Admit) - Final MRSA NOT DETECTED 05/20/17 17:32 Blood-Venous Blood Culture - Final NO GROWTH AFTER 5 DAYS 05/20/17 17:32 Blood-Venous Gram Stain - Final TEST NOT PERFORMED 05/21/17 10:30 Urine,Random Urine Culture - Final No Growth (<1,000 CFU/ML) Assessment and Plan (1) HIV disease Status: Acute (2) Hodgkin's lymphoma Status: Acute (3) Anasarca Status: Acute (4) Fever Status: Acute - Assessment and Plan (Free Text) Assessment: A/P- 37 year old male with HIV f/u at [facility] on [address] with UD VL but CD4-17 , newly diagnosed stage $ Hodgkin;s lymphoma s/p first chemo yesterday admitted with weakness. afebrile today ADONAY tachycardic, jaundiced and tachypneic anasarca all blood and urine cx negative to date TTE negative for vegetations as per report. pancytopneic abd xray- dilated small bowel as per report. stool c.diff- negative wbc- 0.1 today plan- continue with empiric IV vancomycin day #12 since pt. is immunocompromised / neutroprnic and febrile. keep vanco trough <15. dose based on GFR. continue with empiric meropnem day #10 to cover for nosocomial pathogens since pt. was recently hospitalized and is severely neutropenic post chemo. dose renally. micafungin added yesterday for empiric antifungal for neutropenic fever. all above d/w patient and his mother who is at bedside and they verbalize full understanding of all above and agree with above plan of care. condition guarded. ICU time 50 minutes.
--- NOTE | 2017-05-28 15:21 | CP.PCM.PN ---
Subjective - Date & Time of Evaluation Date of Evaluation: 05/28/17 Time of Evaluation: 15:19 - Subjective Subjective: RENAL PROGRESS NOTE S: seen and examined, pt w/ improved nausea o: vs as below gen: nad sclera: icteric op: clear neck: supple cv: +S1+s2 lungs: reduced bs at bases abd: distended ext: 2+ edema neuro: following commands, oriented psych: nml affect skin: juandiced imp: ARF/ Pancytopenia/ Anemia/ Lymphoma/ Hypoalbuminemia plan: ADONAY - currently due to volume overload getting albumin/lasix. Will hold aldactone cr has been trending up not sure that he is tolerating this at this point. dose abx for reduced egfr please check vanc levels if safe from a neutropenic perspective might be helpful to place macias and check bladder pressure to r/o abdominal hypertension. Otherwise, recc ultrasound of abdomen and if large volume ascites might be helpful to do paracentesis to reduce abdominal pressure transfusions will defer to hematology Objective - Vital Signs/Intake and Output Vital Signs (last 24 hours): Temp Pulse Resp BP Pulse Ox 98.7 F 94 H 32 H 111/73 98 05/28/17 14:00 05/28/17 14:00 05/28/17 14:00 05/28/17 14:00 05/28/17 12:00 Intake and Output: 05/28/17 05/28/17 06:59 18:59 Intake Total 575 735 Output Total 200 800 Balance 375 -65 - Medications Medications: Current Medications Acetaminophen (Tylenol 650mg/20.3ml Solution Ud) 650 mg PO Q4 PRN PRN Reason: Temperature Last Admin: 05/27/17 17:58 Dose: 650 mg Albumin Human (Albumin Human 25% (12.5 Gm/50 Ml)) 12.5 gm IV Q8@0630,1430,2230 [facility] Stop: 05/29/17 23:55 Last Admin: 05/28/17 13:59 Dose: 12.5 gm Atovaquone (Mepron) 1,500 mg PO DAILY [facility] PRN Reason: Protocol Last Admin: 05/28/17 09:12 Dose: Not Given Furosemide (Lasix) 40 mg IVP DAILY [facility] Last Admin: 05/28/17 09:10 Dose: 40 mg Home Med (Patient's Own Medication) 1 unit PO DAILY [facility] Last Admin: 05/28/17 09:10 Dose: 1 unit Meropenem 1 gm/ Sodium (Chloride) 100 mls @ 100 mls/hr IVPB Q8 [facility] PRN Reason: Protocol Last Admin: 05/28/17 11:51 Dose: 100 mls/hr Vancomycin HCl 1 gm/ Sodium (Chloride) 250 mls @ 125 mls/hr IVPB DAILY [facility] Last Admin: 05/28/17 09:13 Dose: 125 mls/hr Micafungin Sodium 100 mg/ (Sodium Chloride) 100 mls @ 100 mls/hr IVPB DAILY@ 2100 [facility] PRN Reason: Protocol Last Admin: 05/27/17 22:20 Dose: Not Given Lidocaine (Lidoderm) 1 ea TD DAILY [facility] Last Admin: 05/28/17 09:11 Dose: 1 ea Metoprolol Tartrate (Lopressor) 25 mg PO Q12 [facility] Last Admin: 05/28/17 09:09 Dose: 25 mg Morphine Sulfate (Morphine) 2 mg IVP Q4 PRN PRN Reason: Pain, moderate (4-7) Last Admin: 05/23/17 14:45 Dose: 2 mg Nystatin (Nystatin Oral Susp) 5 ml PO QID [facility] Last Admin: 05/28/17 13:19 Dose: 5 ml Ondansetron HCl (Zofran Inj) 4 mg IVP Q6 PRN PRN Reason: Nausea/Vomiting Polyethylene Glycol (Miralax) 17 gm PO DAILY [facility] Last Admin: 05/28/17 09:12 Dose: 17 gm Saliva Substitute (First Magic Mouthwash) 5 ml PO Q4 PRN PRN Reason: Sore Throat Last Admin: 05/26/17 08:16 Dose: 5 ml Silver Sulfadiazine (Silvadene 1% 50 Gm) 1 applic TOP Q12 [facility] Spironolactone (Aldactone) 50 mg PO BID [facility] Last Admin: 05/28/17 09:09 Dose: 50 mg - Labs Labs: 05/28/17 06:15 05/28/17 06:15 PT 21.8 Seconds (9.8-13.1) H 05/27/17 04:20 INR 1.9 (0.9-1.2) H 05/27/17 04:20 APTT 47.9 Seconds (25.6-37.1) H 05/27/17 04:20
[2017-05-28] MEDS: Silver Sulfadiazine 1% CREAM (50 gm) TOP SCH ×2 (16:14→21:58)
[2017-05-28] MEDS: Meropenem 500 MG in Sodium Chloride 0.9% 100 ML IVPB SCH (17:15)
--- NOTE | 2017-05-28 18:58 | CP.PCM.PN ---
Subjective - Date & Time of Evaluation Date of Evaluation: 05/28/17 Time of Evaluation: 13:00 - Subjective Subjective: Abdominal distention and swelling Objective - Vital Signs/Intake and Output Vital Signs (last 24 hours): Temp Pulse Resp BP Pulse Ox 98.8 F 111 H 28 H 121/71 97 05/28/17 16:00 05/28/17 18:00 05/28/17 18:00 05/28/17 18:00 05/28/17 18:00 Intake and Output: 05/28/17 05/28/17 06:59 18:59 Intake Total 575 1308 Output Total 200 800 Balance 375 508 - Medications Medications: Current Medications Acetaminophen (Tylenol 650mg/20.3ml Solution Ud) 650 mg PO Q4 PRN PRN Reason: Temperature Last Admin: 05/27/17 17:58 Dose: 650 mg Albumin Human (Albumin Human 25% (12.5 Gm/50 Ml)) 12.5 gm IV Q8@0630,1430,2230 [facility] Stop: 05/29/17 23:55 Last Admin: 05/28/17 13:59 Dose: 12.5 gm Atovaquone (Mepron) 1,500 mg PO DAILY [facility] PRN Reason: Protocol Last Admin: 05/28/17 09:12 Dose: Not Given Furosemide (Lasix) 40 mg IVP DAILY [facility] Last Admin: 05/28/17 09:10 Dose: 40 mg Home Med (Patient's Own Medication) 1 unit PO DAILY [facility] Last Admin: 05/28/17 09:10 Dose: 1 unit Meropenem 500 mg/ Sodium (Chloride) 100 mls @ 100 mls/hr IVPB Q8 [facility] PRN Reason: Protocol Last Admin: 05/28/17 17:15 Dose: Not Given Vancomycin HCl 500 mg/ Sodium (Chloride) 100 mls @ 100 mls/hr IVPB DAILY [facility] PRN Reason: Protocol Micafungin Sodium 50 mg/ (Sodium Chloride) 100 mls @ 100 mls/hr IVPB DAILY [facility] PRN Reason: Protocol Last Admin: 05/28/17 18:10 Dose: 100 mls/hr Lidocaine (Lidoderm) 1 ea TD DAILY [facility] Last Admin: 05/28/17 09:11 Dose: 1 ea Metoprolol Tartrate (Lopressor) 25 mg PO Q12 [facility] Last Admin: 05/28/17 09:09 Dose: 25 mg Morphine Sulfate (Morphine) 2 mg IVP Q4 PRN PRN Reason: Pain, moderate (4-7) Last Admin: 05/23/17 14:45 Dose: 2 mg Nystatin (Nystatin Oral Susp) 5 ml PO QID [facility] Last Admin: 05/28/17 16:12 Dose: 5 ml Ondansetron HCl (Zofran Inj) 4 mg IVP Q6 PRN PRN Reason: Nausea/Vomiting Polyethylene Glycol (Miralax) 17 gm PO DAILY [facility] Last Admin: 05/28/17 09:12 Dose: 17 gm Saliva Substitute (First Magic Mouthwash) 5 ml PO Q4 PRN PRN Reason: Sore Throat Last Admin: 05/26/17 08:16 Dose: 5 ml Silver Sulfadiazine (Silvadene 1% 50 Gm) 1 applic TOP Q12 [facility] Last Admin: 05/28/17 16:14 Dose: Not Given - Labs Labs: 05/28/17 06:15 05/28/17 06:15 PT 21.8 Seconds (9.8-13.1) H 05/27/17 04:20 INR 1.9 (0.9-1.2) H 05/27/17 04:20 APTT 47.9 Seconds (25.6-37.1) H 05/27/17 04:20 - Head Exam Head Exam: ATRAUMATIC - Eye Exam Eye Exam: Normal appearance - ENT Exam ENT Exam: Mucous Membranes Dry - Respiratory Exam Respiratory Exam: NORMAL BREATHING PATTERN - Cardiovascular Exam Cardiovascular Exam: +S1, +S2 - GI/Abdominal Exam GI & Abdominal Exam: Normal Bowel Sounds Assessment and Plan (1) Pancytopenia Assessment & Plan: 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 Molina at [place], she will accept the patient Tuesday Status: Acute
[2017-05-28 20:55] LABS: HEMOGLOBIN 10.1 g/dL (12.0-18.0); MEAN CELL VOLUME 80.3 fl (80.0-94.0); MEAN CORPUSCULAR HEMOGLOBIN 27.8 pg (27.0-31.0); MEAN CORPUSCULAR HGB CONC 34.6 g/dL (33.0-37.0); RBC 3.64 Mil/uL (4.40-5.90); RED CELL DISTRIBUTION WIDTH 17.5 % (11.5-14.5)
[2017-05-28 21:00] LABS: WHITE BLOOD COUNT 0.1 K/uL (4.8-10.8)
[2017-05-29 00:24] LABS: ABG ALLEN TEST YES; ARTERIAL BLOOD GAS HCO3 23.9 mmol/L (21-28); ARTERIAL BLOOD GAS O2 CAPACITY 13.7 mL/dL (16-24); ARTERIAL BLOOD GAS O2 CONTENT 13.7 ML/dL (15-23); ARTERIAL BLOOD GAS O2 SAT 99.9 % (95-98); ARTERIAL BLOOD GAS PCO2 27 mm/Hg (35-45); ARTERIAL BLOOD GAS PO2 89 mm/Hg (80-100); ARTERIAL BLOOD GAS TCO2 21.9 mmol/L (22-28)
--- NOTE | 2017-05-29 00:34 | CP.PCM.PN ---
Subjective - Date & Time of Evaluation Date of Evaluation: 05/29/17 Time of Evaluation: 00:34 - Subjective Subjective: Called to evaluate patient tachycardic with HR 125/min and Respiratory rate 40/ min, Temp: 100.7F Exam: Patient awake and alert. Does not appear to be in respiratory distress Resp: mild rales at both bases CVS: S1 S2 Tachycardic and regular Abd: Full, nontender Neuro: non focal ABG: Ph 7.50/27/89/23 CXR: haziness in right lung 2/3 up A&P Tachycardia because of the Fever and the Hodgkin lymphoma - Give Tylenol - Continue Antibiotics - continue O2 high Flow 20L at 40% Tachypnea causing Respiratory Alkalosis - Monitor for depression -treat Fever - lasix given Vlad Ann MD Objective - Vital Signs/Intake and Output Vital Signs (last 24 hours): Temp Pulse Resp BP Pulse Ox 99.6 F 124 H 40 H 126/65 96 05/28/17 20:00 05/28/17 22:00 05/29/17 00:21 05/28/17 22:00 05/28/17 22:00 Intake and Output: 05/28/17 05/29/17 18:59 06:59 Intake Total 1308 50 Output Total 800 1 Balance 508 49 - Medications Medications: Current Medications Acetaminophen (Tylenol 650mg/20.3ml Solution Ud) 650 mg PO Q4 PRN PRN Reason: Temperature Last Admin: 05/27/17 17:58 Dose: 650 mg Albumin Human (Albumin Human 25% (12.5 Gm/50 Ml)) 12.5 gm IV Q8@0630,1430,2230 [facility] Stop: 05/29/17 23:55 Last Admin: 05/28/17 22:44 Dose: 12.5 gm Atovaquone (Mepron) 1,500 mg PO DAILY [facility] PRN Reason: Protocol Last Admin: 05/28/17 09:12 Dose: Not Given Furosemide (Lasix) 40 mg IVP DAILY [facility] Last Admin: 05/28/17 09:10 Dose: 40 mg Home Med (Patient's Own Medication) 1 unit PO DAILY [facility] Last Admin: 05/28/17 09:10 Dose: 1 unit Meropenem 500 mg/ Sodium (Chloride) 100 mls @ 100 mls/hr IVPB Q8 [facility] PRN Reason: Protocol Last Admin: 05/28/17 17:15 Dose: Not Given Vancomycin HCl 500 mg/ Sodium (Chloride) 100 mls @ 100 mls/hr IVPB DAILY [facility] PRN Reason: Protocol Micafungin Sodium 50 mg/ (Sodium Chloride) 100 mls @ 100 mls/hr IVPB DAILY [facility] PRN Reason: Protocol Last Admin: 05/28/17 18:10 Dose: 100 mls/hr Lidocaine (Lidoderm) 1 ea TD DAILY [facility] Last Admin: 05/28/17 09:11 Dose: 1 ea Metoprolol Tartrate (Lopressor) 25 mg PO Q12 [facility] Last Admin: 05/28/17 21:57 Dose: 25 mg Morphine Sulfate (Morphine) 2 mg IVP Q4 PRN PRN Reason: Pain, moderate (4-7) Last Admin: 05/23/17 14:45 Dose: 2 mg Nystatin (Nystatin Oral Susp) 5 ml PO QID [facility] Last Admin: 05/28/17 21:59 Dose: 5 ml Ondansetron HCl (Zofran Inj) 4 mg IVP Q6 PRN PRN Reason: Nausea/Vomiting Polyethylene Glycol (Miralax) 17 gm PO DAILY [facility] Last Admin: 05/28/17 09:12 Dose: 17 gm Saliva Substitute (First Magic Mouthwash) 5 ml PO Q4 PRN PRN Reason: Sore Throat Last Admin: 05/26/17 08:16 Dose: 5 ml Silver Sulfadiazine (Silvadene 1% 50 Gm) 1 applic TOP Q12 [facility] Last Admin: 05/28/17 21:58 Dose: Not Given - Labs Labs: 05/28/17 20:01 05/28/17 06:15 PT 21.8 Seconds (9.8-13.1) H 05/27/17 04:20 INR 1.9 (0.9-1.2) H 05/27/17 04:20 APTT 47.9 Seconds (25.6-37.1) H 05/27/17 04:20
[2017-05-29] MEDS: Acetaminophen 650mg/20.3ml solution UD PO PRN ×2 (00:47→12:48)
[2017-05-29] MEDS: Meropenem 500 MG in Sodium Chloride 0.9% 100 ML IVPB SCH ×3 (01:06→16:32)
[2017-05-29 06:14] LABS: ALB/GLOB RATIO 0.8 (1.0-2.1); ALBUMIN 2.3 g/dL (3.5-5.0); CALCIUM 7.9 mg/dL (8.4-10.2)
[2017-05-29 06:24] LABS: INR 1.7 (0.9-1.2); PARTIAL THROMBOPLASTIN TIME 46.2 Seconds (25.6-37.1); PROTHROMBIN TIME 18.8 Seconds (9.8-13.1)
[2017-05-29 06:29] LABS: EOS % 8.1 % (0.0-4.0); HEMOGLOBIN 9.5 g/dL (12.0-18.0); LYMPH % 68.2 % (20.0-40.0); MEAN CELL VOLUME 80.3 fl (80.0-94.0); MEAN CORPUSCULAR HEMOGLOBIN 27.8 pg (27.0-31.0); MEAN CORPUSCULAR HGB CONC 34.6 g/dL (33.0-37.0); MEAN PLATELET VOLUME 10.1 fl (7.2-11.7); NEUT % 0.7 % (50.0-75.0); RBC 3.41 Mil/uL (4.40-5.90); RED CELL DISTRIBUTION WIDTH 17.3 % (11.5-14.5)
[2017-05-29] MEDS: Albumin Human 25% (12.5 gm/50 ml) IV SCH ×2 (06:31→13:58)
[2017-05-29 06:51] LABS: WHITE BLOOD COUNT 0.1 K/uL (4.8-10.8)
[2017-05-29 06:52] LABS: PLATELET COUNT 17 K/uL (130-400)
--- NOTE | 2017-05-29 07:35 | CP.CCUPN ---
CCU Subjective - Physician Review Events Since Last Encounter (Free Text): 05/29/17 07:34 Patient awake, no distress, on high flow O2 supplement, no vomiting, no chest pain, events reviewed CCU Objective - Vital Signs / Intake & Output Vital Signs (Last 4 hours): Vital Signs Temp Pulse Resp BP Pulse Ox 05/29/17 07:27 32 H 05/29/17 04:37 26 H 05/29/17 04:00 98 F 100 H 26 H 111/67 97 Intake and Output (Last 8hrs): Intake & Output 05/28/17 05/29/17 05/29/17 22:59 06:59 14:59 Intake Total 623 Output Total 1 Balance 622 Weight 183 lb 6.4 oz Intake: IV 100 Oral 100 Blood Product 423 Output: Urine/Stool Mix 1 Other: # Voids Urine, Voided 2 # Bowel Movements 1 1 - Physical Exam Head: Positive for: Atraumatic, Normocephalic Pupils: Positive for: PERRL. Negative for: Sluggish Extroacular Muscles: Positive for: EOMI Conjunctiva: Positive for: Normal, Icteric. Negative for: Injected Ears: Positive for: Normal Mouth: Positive for: Moist Mucous Membranes Pharnyx: Positive for: Normal Nose (External): Positive for: Atraumatic Neck: Positive for: Normal Range of Motion, Trachea Midline. Negative for: Meningeal Signs, MIDLINE TENDERNESS, Paraspinal Tenderness, JVD, Lymphadenopathy , Bruit, Other Respiratory/Chest: Positive for: Clear to Auscultation, Good Air Exchange, Decreased Breath Sounds, Tachypneic. Negative for: Respiratory Distress, Accessory Muscle Use, Wheezes, Rales, Retracting, Rhonchi Cardiovascular: Positive for: Regular Rate and Rhythm, Normal S1, S2, Peripheal Pulses Present, Tachycardic. Negative for: Murmurs Abdomen: Positive for: Normal Bowel Sounds. Negative for: Tenderness, Distention Back: Negative for: CVA Tenderness Upper Extremity: Positive for: Normal Inspection. Negative for: Cyanosis, Edema , Normal ROM Lower Extremity: Positive for: Normal Inspection, NORMAL PULSES. Negative for: Edema, CALF TENDERNESS Neurological: Positive for: GCS=15, CN II-XII Intact, Speech Normal, Motor Func Grossly Intact, Normal Sensory Function Psychiatric: Positive for: Alert, Oriented x 3 - Medications Active Medications: Active Medications Generic Name Dose Route Start Last Admin Trade Name Freq PRN Reason Stop Dose Admin Acetaminophen 650 mg 05/26/17 10:09 05/29/17 00:47 Tylenol 650mg/20.3ml Solution Ud PO 650 mg Q4 PRN Administration Temperature Albumin Human 12.5 gm 05/27/17 22:45 05/29/17 06:31 Albumin Human 25% (12.5 Gm/50 Ml) IV 05/29/17 23:55 12.5 gm Q8@0630,1430,2230 DARRION Administration Atovaquone 1,500 mg 05/21/17 09:00 05/28/17 09:12 Mepron PO Not Given DAILY DARRION Protocol Furosemide 40 mg 05/24/17 09:00 05/28/17 09:10 Lasix IVP 40 mg DAILY DARRION Administration Home Med 1 unit 05/21/17 09:00 05/28/17 09:10 Patient's Own Medication PO 1 unit DAILY DARRION Administration Meropenem 500 mg/ Sodium 100 mls @ 100 mls/hr 05/28/17 17:00 05/29/17 01:06 Chloride IVPB 100 mls/hr Q8 DARRION Administration Protocol Vancomycin HCl 500 mg/ Sodium 100 mls @ 100 mls/hr 05/29/17 09:00 Chloride IVPB DAILY DARRION Protocol Micafungin Sodium 50 mg/ 100 mls @ 100 mls/hr 05/28/17 17:00 05/28/17 18:10 Sodium Chloride IVPB 100 mls/hr DAILY DARRION Administration Protocol Lidocaine 1 ea 05/23/17 11:30 05/28/17 09:11 Lidoderm TD 1 ea DAILY DARRION Administration Metoprolol Tartrate 25 mg 05/24/17 21:00 05/28/17 21:57 Lopressor PO 25 mg Q12 DARRION Administration Morphine Sulfate 2 mg 05/23/17 13:17 05/23/17 14:45 Morphine IVP 2 mg Q4 PRN Administration Pain, moderate (4-7) Nystatin 5 ml 05/22/17 13:00 05/28/17 21:59 Nystatin Oral Susp PO 5 ml QID DARRION Administration Ondansetron HCl 4 mg 05/20/17 19:35 Zofran Inj IVP Q6 PRN Nausea/Vomiting Polyethylene Glycol 17 gm 05/28/17 09:00 05/28/17 09:12 Miralax PO 17 gm DAILY DARRION Administration Saliva Substitute 5 ml 05/21/17 15:34 05/26/17 08:16 First Magic Mouthwash PO 5 ml Q4 PRN Administration Sore Throat Silver Sulfadiazine 1 applic 05/28/17 11:15 05/28/17 21:58 Silvadene 1% 50 Gm TOP Not Given Q12 DARRION - Patient Studies Lab Studies: Microbiology Studies 05/23/17 17:41 Blood Culture - Final Blood-Venous NO GROWTH AFTER 5 DAYS 05/23/17 17:41 Blood Culture - Final Blood-Venous NO GROWTH AFTER 5 DAYS Gram Stain - Final TEST NOT PERFORMED 05/25/17 08:28 Stool Culture - Final Stool NO SALMONELLA, SHIGELLA OR CAMPYLOBACTER ISOLATED. Lab Studies 05/29/17 05/29/17 05/29/17 Range/Units 05:49 05:49 05:49 WBC 0.1 L* (4.8-10.8) K/uL RBC 3.41 L (4.40-5.90) Mil/uL Hgb 9.5 L (12.0-18.0) g/dL Hct 27.4 L (35.0-51.0) % MCV 80.3 (80.0-94.0) fl MCH 27.8 (27.0-31.0) pg MCHC 34.6 (33.0-37.0) g/dL RDW 17.3 H (11.5-14.5) % Plt Count 17 L* (130-400) K/uL MPV 10.1 (7.2-11.7) fl Neut % (Auto) 0.7 L (50.0-75.0) % Lymph % (Auto) 68.2 H (20.0-40.0) % [place] % (Auto) 23.0 H (0.0-10.0) % Eos % (Auto) 8.1 H (0.0-4.0) % Baso % (Auto) 0.0 (0.0-2.0) % Neut # (Auto) 0.0 L (1.8-7.0) K/uL Lymph # (Auto) 0.0 L (1.0-4.3) K/uL [place] # (Auto) 0.0 (0.0-0.8) K/uL Eos # (Auto) 0.0 (0.0-0.7) K/uL Baso # (Auto) 0.0 (0.0-0.2) K/uL Neutrophils % (Manual) (42-75) % Lymphocytes % (Manual) (20-50) % Monocytes % (Manual) (0-10) % Platelet Estimate (NORMAL) Hypochromasia (manual) Poikilocytosis (manual Anisocytosis (manual) Tear Drop Cells Ovalocytes Schistocytes PT (9.8-13.1) Seconds INR (0.9-1.2) APTT (25.6-37.1) Seconds pCO2 (35-45) mm/Hg pO2 (80-100) mm/Hg HCO3 (21-28) mmol/L ABG pH (7.35-7.45) ABG Total CO2 (22-28) mmol/L ABG O2 Saturation (95-98) % ABG O2 Content (15-23) ML/dL ABG Base Excess (-2.0-3.0) mmol/L ABG Hemoglobin (11.7-17.4) g/dL ABG Carboxyhemoglobin (0.5-1.5) % POC ABG HHb (Measured) (0.0-5.0) % ABG Methemoglobin (0.0-3.0) % ABG O2 Capacity (16-24) mL/dL Terry Test A-a O2 Difference mm/Hg Hgb O2 Saturation (95.0-98.0) % Liter Flow Vent Mode FiO2 % Sodium 138 (132-148) mmol/l Potassium 3.5 L (3.6-5.0) MMOL/L Chloride 104 (98-107) mmol/L Carbon Dioxide 19 L (22-30) mmol/L Anion Gap 19 (10-20) BUN 69 H (9-20) mg/dl Creatinine 1.9 H (0.8-1.5) mg/dl Est GFR ( Amer) 48 Est GFR (Non-Af Amer) 40 Random Glucose 101 (75-110) mg/dL Calcium 7.9 L (8.4-10.2) mg/dL Total Bilirubin 11.6 H (0.2-1.3) mg/dl AST 31 (17-59) U/L ALT 39 (21-72) U/L Alkaline Phosphatase 835 H (38-126) U/L Total Protein 5.1 L (6.3-8.2) G/DL Albumin 2.3 L (3.5-5.0) g/dL Globulin 2.8 (2.2-3.9) gm/dL Albumin/Globulin Ratio 0.8 L (1.0-2.1) Vancomycin Trough 15.6 H (5.0-10.0) ug/mL Blood Type Antibody Screen Crossmatch BBK History Checked 05/29/17 05/29/17 05/28/17 Range/Units 05:49 00:19 20:01 WBC 0.1 L* (4.8-10.8) K/uL RBC 3.64 L (4.40-5.90) Mil/uL Hgb 10.1 L D (12.0-18.0) g/dL Hct 29.2 L (35.0-51.0) % MCV 80.3 (80.0-94.0) fl MCH 27.8 (27.0-31.0) pg MCHC 34.6 (33.0-37.0) g/dL RDW 17.5 H (11.5-14.5) % Plt Count 20 L* (130-400) K/uL MPV (7.2-11.7) fl Neut % (Auto) (50.0-75.0) % Lymph % (Auto) (20.0-40.0) % [place] % (Auto) (0.0-10.0) % Eos % (Auto) (0.0-4.0) % Baso % (Auto) (0.0-2.0) % Neut # (Auto) (1.8-7.0) K/uL Lymph # (Auto) (1.0-4.3) K/uL [place] # (Auto) (0.0-0.8) K/uL Eos # (Auto) (0.0-0.7) K/uL Baso # (Auto) (0.0-0.2) K/uL Neutrophils % (Manual) (42-75) % Lymphocytes % (Manual) (20-50) % Monocytes % (Manual) (0-10) % Platelet Estimate (NORMAL) Hypochromasia (manual) Poikilocytosis (manual Anisocytosis (manual) Tear Drop Cells Ovalocytes Schistocytes PT 18.8 H (9.8-13.1) Seconds INR 1.7 H (0.9-1.2) APTT 46.2 H (25.6-37.1) Seconds pCO2 27 L (35-45) mm/Hg pO2 89 (80-100) mm/Hg HCO3 23.9 (21-28) mmol/L ABG pH 7.50 H (7.35-7.45) ABG Total CO2 21.9 L (22-28) mmol/L ABG O2 Saturation 99.9 H (95-98) % ABG O2 Content 13.7 L (15-23) ML/dL ABG Base Excess -1.3 (-2.0-3.0) mmol/L ABG Hemoglobin 10.0 L (11.7-17.4) g/dL ABG Carboxyhemoglobin 2.0 H (0.5-1.5) % POC ABG HHb (Measured) 0.1 (0.0-5.0) % ABG Methemoglobin 1.1 (0.0-3.0) % ABG O2 Capacity 13.7 L (16-24) mL/dL Terry Test Yes A-a O2 Difference 162.0 mm/Hg Hgb O2 Saturation 96.8 (95.0-98.0) % Liter Flow 20 Vent Mode High flow lpm FiO2 40.0 % Sodium (132-148) mmol/l Potassium (3.6-5.0) MMOL/L Chloride (98-107) mmol/L Carbon Dioxide (22-30) mmol/L Anion Gap (10-20) BUN (9-20) mg/dl Creatinine (0.8-1.5) mg/dl Est GFR ( Amer) Est GFR (Non-Af Amer) Random Glucose (75-110) mg/dL Calcium (8.4-10.2) mg/dL Total Bilirubin (0.2-1.3) mg/dl AST (17-59) U/L ALT (21-72) U/L Alkaline Phosphatase (38-126) U/L Total Protein (6.3-8.2) G/DL Albumin (3.5-5.0) g/dL Globulin (2.2-3.9) gm/dL Albumin/Globulin Ratio (1.0-2.1) Vancomycin Trough (5.0-10.0) ug/mL Blood Type Antibody Screen Crossmatch BBK History Checked 05/28/17 05/28/17 05/27/17 Range/Units 06:15 06:15 22:59 WBC 0.1 L* D (4.8-10.8) K/uL RBC 2.66 L (4.40-5.90) Mil/uL Hgb 7.2 L (12.0-18.0) g/dL Hct 21.3 L (35.0-51.0) % MCV 80.1 (80.0-94.0) fl MCH 26.9 L (27.0-31.0) pg MCHC 33.6 (33.0-37.0) g/dL RDW 18.6 H (11.5-14.5) % Plt Count 17 L* (130-400) K/uL MPV 10.1 (7.2-11.7) fl Neut % (Auto) 6.3 L (50.0-75.0) % Lymph % (Auto) 73.4 H (20.0-40.0) % [place] % (Auto) 19.5 H (0.0-10.0) % Eos % (Auto) 0.8 (0.0-4.0) % Baso % (Auto) 0.0 (0.0-2.0) % Neut # (Auto) 0.0 L (1.8-7.0) K/uL Lymph # (Auto) 0.0 L (1.0-4.3) K/uL [place] # (Auto) 0.0 (0.0-0.8) K/uL Eos # (Auto) 0.0 (0.0-0.7) K/uL Baso # (Auto) 0.0 (0.0-0.2) K/uL Neutrophils % (Manual) 1 L (42-75) % Lymphocytes % (Manual) 8 L (20-50) % Monocytes % (Manual) 1 (0-10) % Platelet Estimate Markedly decreased L (NORMAL) Hypochromasia (manual) Moderate Poikilocytosis (manual Slight Anisocytosis (manual) Moderate Tear Drop Cells Slight Ovalocytes Slight Schistocytes Slight PT (9.8-13.1) Seconds INR (0.9-1.2) APTT (25.6-37.1) Seconds pCO2 (35-45) mm/Hg pO2 (80-100) mm/Hg HCO3 (21-28) mmol/L ABG pH (7.35-7.45) ABG Total CO2 (22-28) mmol/L ABG O2 Saturation (95-98) % ABG O2 Content (15-23) ML/dL ABG Base Excess (-2.0-3.0) mmol/L ABG Hemoglobin (11.7-17.4) g/dL ABG Carboxyhemoglobin (0.5-1.5) % POC ABG HHb (Measured) (0.0-5.0) % ABG Methemoglobin (0.0-3.0) % ABG O2 Capacity (16-24) mL/dL Terry Test A-a O2 Difference mm/Hg Hgb O2 Saturation (95.0-98.0) % Liter Flow Vent Mode FiO2 % Sodium (132-148) mmol/l Potassium (3.6-5.0) MMOL/L Chloride (98-107) mmol/L Carbon Dioxide (22-30) mmol/L Anion Gap (10-20) BUN (9-20) mg/dl Creatinine (0.8-1.5) mg/dl Est GFR ( Amer) Est GFR (Non-Af Amer) Random Glucose (75-110) mg/dL Calcium (8.4-10.2) mg/dL Total Bilirubin (0.2-1.3) mg/dl AST (17-59) U/L ALT (21-72) U/L Alkaline Phosphatase (38-126) U/L Total Protein (6.3-8.2) G/DL Albumin (3.5-5.0) g/dL Globulin (2.2-3.9) gm/dL Albumin/Globulin Ratio (1.0-2.1) Vancomycin Trough 13.5 H (5.0-10.0) ug/mL Blood Type O POSITIVE Antibody Screen Negative Crossmatch See Detail BBK History Checked Patient has bt Laboratory Results - last 24 hr 05/27/17 05/28/1718 22:59 06:15 06:15 WBC 0.1 L* D RBC 2.66 L Hgb 7.2 L Hct 21.3 L MCV 80.1 MCH 26.9 L MCHC 33.6 RDW 18.6 H Plt Count 17 L* MPV 10.1 Neut % (Auto) 6.3 L Lymph % (Auto) 73.4 H [place] % (Auto) 19.5 H Eos % (Auto) 0.8 Baso % (Auto) 0.0 Neut # (Auto) 0.0 L Lymph # (Auto) 0.0 L [place] # (Auto) 0.0 Eos # (Auto) 0.0 Baso # (Auto) 0.0 Neutrophils % (Manual) 1 L Lymphocytes % (Manual) 8 L Monocytes % (Manual) 1 Platelet Estimate Markedly decreased L Hypochromasia (manual) Moderate Poikilocytosis (manual Slight Anisocytosis (manual) Moderate Tear Drop Cells Slight Ovalocytes Slight Schistocytes Slight PT INR APTT pCO2 pO2 HCO3 ABG pH ABG Total CO2 ABG O2 Saturation ABG O2 Content ABG Base Excess ABG Hemoglobin ABG Carboxyhemoglobin POC ABG HHb (Measured) ABG Methemoglobin ABG O2 Capacity Terry Test A-a O2 Difference Hgb O2 Saturation Liter Flow Vent Mode FiO2 Sodium Potassium Chloride Carbon Dioxide Anion Gap BUN Creatinine Est GFR ( Amer) Est GFR (Non-Af Amer) Random Glucose Calcium Total Bilirubin AST ALT Alkaline Phosphatase Total Protein Albumin Globulin Albumin/Globulin Ratio Vancomycin Trough 13.5 H Blood Type O POSITIVE Antibody Screen Negative Crossmatch See Detail BBK History Checked Patient has bt 05/28/17 05/29/17 05/29/17 20:01 00:19 05:49 WBC 0.1 L* RBC 3.64 L Hgb 10.1 L D Hct 29.2 L MCV 80.3 MCH 27.8 MCHC 34.6 RDW 17.5 H Plt Count 20 L* MPV Neut % (Auto) Lymph % (Auto) [place] % (Auto) Eos % (Auto) Baso % (Auto) Neut # (Auto) Lymph # (Auto) [place] # (Auto) Eos # (Auto) Baso # (Auto) Neutrophils % (Manual) Lymphocytes % (Manual) Monocytes % (Manual) Platelet Estimate Hypochromasia (manual) Poikilocytosis (manual Anisocytosis (manual) Tear Drop Cells Ovalocytes Schistocytes PT 18.8 H INR 1.7 H APTT 46.2 H pCO2 27 L pO2 89 HCO3 23.9 ABG pH 7.50 H ABG Total CO2 21.9 L ABG O2 Saturation 99.9 H ABG O2 Content 13.7 L ABG Base Excess -1.3 ABG Hemoglobin 10.0 L ABG Carboxyhemoglobin 2.0 H POC ABG HHb (Measured) 0.1 ABG Methemoglobin 1.1 ABG O2 Capacity 13.7 L Terry Test Yes A-a O2 Difference 162.0 Hgb O2 Saturation 96.8 Liter Flow 20 Vent Mode High flow lpm FiO2 40.0 Sodium Potassium Chloride Carbon Dioxide Anion Gap BUN Creatinine Est GFR ( Amer) Est GFR (Non-Af Amer) Random Glucose Calcium Total Bilirubin AST ALT Alkaline Phosphatase Total Protein Albumin Globulin Albumin/Globulin Ratio Vancomycin Trough Blood Type Antibody Screen Crossmatch BBK History Checked 05/29/17 05/29/17 05/29/17 05:49 05:49 05:49 WBC 0.1 L* RBC 3.41 L Hgb 9.5 L Hct 27.4 L MCV 80.3 MCH 27.8 MCHC 34.6 RDW 17.3 H Plt Count 17 L* MPV 10.1 Neut % (Auto) 0.7 L Lymph % (Auto) 68.2 H [place] % (Auto) 23.0 H Eos % (Auto) 8.1 H Baso % (Auto) 0.0 Neut # (Auto) 0.0 L Lymph # (Auto) 0.0 L [place] # (Auto) 0.0 Eos # (Auto) 0.0 Baso # (Auto) 0.0 Neutrophils % (Manual) Lymphocytes % (Manual) Monocytes % (Manual) Platelet Estimate Hypochromasia (manual) Poikilocytosis (manual Anisocytosis (manual) Tear Drop Cells Ovalocytes Schistocytes PT INR APTT pCO2 pO2 HCO3 ABG pH ABG Total CO2 ABG O2 Saturation ABG O2 Content ABG Base Excess ABG Hemoglobin ABG Carboxyhemoglobin POC ABG HHb (Measured) ABG Methemoglobin ABG O2 Capacity Terry Test A-a O2 Difference Hgb O2 Saturation Liter Flow Vent Mode FiO2 Sodium 138 Potassium 3.5 L Chloride 104 Carbon Dioxide 19 L Anion Gap 19 BUN 69 H Creatinine 1.9 H Est GFR ( Amer) 48 Est GFR (Non-Af Amer) 40 Random Glucose 101 Calcium 7.9 L Total Bilirubin 11.6 H AST 31 ALT 39 Alkaline Phosphatase 835 H Total Protein 5.1 L Albumin 2.3 L Globulin 2.8 Albumin/Globulin Ratio 0.8 L Vancomycin Trough 15.6 H Blood Type Antibody Screen Crossmatch BBK History Checked Critical Care Progress Note - Nutrition Nutrition: Nutrition Category Date Time Status Liquid Diet [DIET] Diets 05/28/17 Lunch Active Assessment/Plan - Assessment and Plan (Free Text) Assessment: A/P Pancytopenia, fever, jaundice, Hodgkin lymphoma s/p chemotherapy, ?metastatic disease, HIV, ascities - Antibiotics - O2 supplement - Oncology follow up - GI follow up - ID follow up - Continue meds - Pulmonary toilets - Poor prognosis
[2017-05-29 07:37] LABS: LYMPHOCYTE 100 % (20-50); TOTAL CELLS COUNTED 1
[2017-05-29 07:39] LABS: ANISOCYTOSIS SLIGHT; POIKILOCYTOSIS SLIGHT
[2017-05-29 07:40] LABS: HYPOCHROMIC SLIGHT; OVALOCYTES SLIGHT; STOMATOCYTES SLIGHT; TEARDROP CELLS SLIGHT
[2017-05-29 07:41] LABS: ROULEAUX FORMATION SLIGHT
[2017-05-29 07:43] LABS: PLATELET ESTIMATE MARKEDLY DECREASED (NORMAL)
--- NOTE | 2017-05-29 09:14 | RAD ---
HISTORY: Tachypnea COMPARISON: Chest radiograph dated 05/26/2017. FINDINGS: LUNGS: Stable right lung hazy change. PLEURA: Small right pleural effusion. No pneumothorax apparent. CARDIOVASCULAR: Normal. OSSEOUS STRUCTURES: No significant findings. VISUALIZED UPPER ABDOMEN: Normal. OTHER FINDINGS: Right subclavian access chest port, unchanged. IMPRESSION: Stable right lung hazy change. Small right pleural effusion.
[2017-05-29] MEDS: Lidocaine 5% Patch TD SCH (09:28)
[2017-05-29] MEDS: Atovaquone 750 mg/5 ml Susp UD PO SCH (09:31)
[2017-05-29] MEDS: POLYETHYLENE GLYCOL 3350 17 GM/Dose PACKET PO SCH ×2 (09:33→10:36)
[2017-05-29] MEDS: Nystatin 100,000 Units/ml Oral Susp 5 ml UD PO SCH ×5 (09:35→22:00)
[2017-05-29] MEDS: Silver Sulfadiazine 1% CREAM (50 gm) TOP SCH ×2 (09:35→22:00)
[2017-05-29] MEDS: BIKTARVY PO SCH (09:35)
--- NOTE | 2017-05-29 10:02 | CP.PCM.PN ---
Subjective - Date & Time of Evaluation Date of Evaluation: 05/29/17 Time of Evaluation: 09:00 - Subjective Subjective: Pt. seen in the ICU. Pt's female cousin present. Pt. asleep and comfortable in no distress. Pt. arousable. Overnight events reviewed with RKami. Currently vitals and labs reviewed. Objective - Vital Signs/Intake and Output Vital Signs (last 24 hours): Temp Pulse Resp BP Pulse Ox 98.4 F 119 H 26 H 110/70 99 05/29/17 08:00 05/29/17 09:30 05/29/17 08:00 05/29/17 09:37 05/29/17 08:00 Intake and Output: 05/29/17 05/29/17 06:59 18:59 Intake Total 50 Output Total 401 200 Balance -351 -200 - Medications Medications: Current Medications Acetaminophen (Tylenol 650mg/20.3ml Solution Ud) 650 mg PO Q4 PRN PRN Reason: Temperature Last Admin: 05/29/17 00:47 Dose: 650 mg Albumin Human (Albumin Human 25% (12.5 Gm/50 Ml)) 12.5 gm IV Q8@0630,1430,2230 [facility] Stop: 05/29/17 23:55 Last Admin: 05/29/17 06:31 Dose: 12.5 gm Atovaquone (Mepron) 1,500 mg PO DAILY DARRION PRN Reason: Protocol Last Admin: 05/29/17 09:31 Dose: 1,500 mg Furosemide (Lasix) 40 mg IVP DAILY DARRION Last Admin: 05/29/17 09:37 Dose: 40 mg Home Med (Patient's Own Medication) 1 unit PO DAILY DARRION Last Admin: 05/29/17 09:35 Dose: 1 unit Meropenem 500 mg/ Sodium (Chloride) 100 mls @ 100 mls/hr IVPB Q8 DARRION PRN Reason: Protocol Last Admin: 05/29/17 09:32 Dose: 100 mls/hr Vancomycin HCl 500 mg/ Sodium (Chloride) 100 mls @ 100 mls/hr IVPB DAILY DARRION PRN Reason: Protocol Last Admin: 05/29/17 09:37 Dose: Not Given Micafungin Sodium 50 mg/ (Sodium Chloride) 100 mls @ 100 mls/hr IVPB DAILY DARRION PRN Reason: Protocol Last Admin: 05/29/17 09:34 Dose: 100 mls/hr Lidocaine (Lidoderm) 1 ea TD DAILY [facility] Last Admin: 05/29/17 09:28 Dose: 1 ea Metoprolol Tartrate (Lopressor) 25 mg PO Q12 [facility] Last Admin: 05/29/17 09:30 Dose: 25 mg Morphine Sulfate (Morphine) 2 mg IVP Q4 PRN PRN Reason: Pain, moderate (4-7) Last Admin: 05/23/17 14:45 Dose: 2 mg Nystatin (Nystatin Oral Susp) 5 ml PO QID [facility] Last Admin: 05/29/17 09:35 Dose: 5 ml Ondansetron HCl (Zofran Inj) 4 mg IVP Q6 PRN PRN Reason: Nausea/Vomiting Polyethylene Glycol (Miralax) 17 gm PO DAILY [facility] Last Admin: 05/29/17 09:33 Dose: 17 gm Saliva Substitute (First Magic Mouthwash) 5 ml PO Q4 PRN PRN Reason: Sore Throat Last Admin: 05/26/17 08:16 Dose: 5 ml Silver Sulfadiazine (Silvadene 1% 50 Gm) 1 applic TOP Q12 [facility] Last Admin: 05/29/17 09:35 Dose: 1 applic - Labs Labs: 05/29/17 05:49 05/29/17 05:49 PT 18.8 Seconds (9.8-13.1) H 05/29/17 05:49 INR 1.7 (0.9-1.2) H 05/29/17 05:49 APTT 46.2 Seconds (25.6-37.1) H 05/29/17 05:49 - Constitutional Appears: Chronically Ill - Eye Exam Eye Exam: PERRL, Scleral icterus - Respiratory Exam Additional comments: +Tachypnea - Cardiovascular Exam Cardiovascular Exam: Tachycardia, +S1, +S2 - GI/Abdominal Exam GI & Abdominal Exam: Distended Additional comments: + Hepatosplenomegaly \ - Extremities Exam Extremities Exam: Pedal Edema Assessment and Plan - Assessment and Plan (Free Text) Assessment: 37 y.o. male with HIV/AIDS and Hodgkins Lymphoma admitted for pancytopenia now in ICU day#6 with persistent tachycardia, tachypnia, and anisarca. Pancytopenia & Hodgkins Lymphoma - ID on board, Recs appreciated - c/w Vancomycin and Meropenem IV as prophylaxis (day 11) - s/p chemo cycle #1 05/20/17: ABVD - Hematology/Onc on board, Recs appreciated - H/H today moderately improved today 10.4/32.3 after 1 unit PRBC and 2 units Platelets Platelets improved to 20 - Continue Granix as per Heme-Oncology Tachycardia/Tachypnea - Continue High Flow oxygen - Continue Metoprolol 25mg PO Q12 Anarsarca - Nephro Dr. Graves recs appreciated: - strict oral fluids restriction - albumin repletion Q8 x 3 days Acute kidney injury - BUN/Cr: Improving 74/2.2 > 69/1.6 - Fluid restriction and continue Lasix and albumin - Nephrology on board recommendations appreciated Elevated LFTs/bilirubin with liver mets most likely due to malignancy - liver US wnl - GI Dr Austin on board - secondary to chemo/malignancy - MRCP 05/25: negative for biliary obstruction. - ABD xrays: bowel loops distention, possible early bowel obstruction. Oral thrush - c/w PO nystatin - magic mouth wash HIV/AIDS - CD4 count <20, CD4 6% (05/17/17) - C/W current HIV treatment (pt owns medications) - per ID stopped azithro due to interactions w/ chemo (last dose 05/18/17) - c/w Mepron (atovaquone) 1500 mg PO daily (PCP prophylaxis) DVT prophylaxis -SCD Only due to Thrombocytopenia Code -Full, confirmed with patient 05/26/17
[2017-05-30] MEDS: Meropenem 500 MG in Sodium Chloride 0.9% 100 ML IVPB SCH ×3 (00:21→16:23)
[2017-05-30] MEDS: Acetaminophen 650mg/20.3ml solution UD PO PRN (00:34)
[2017-05-30 06:41] LABS: EOS % 0.2 % (0.0-4.0); HEMOGLOBIN 9.6 g/dL (12.0-18.0); LYMPH # 0.1 K/uL (1.0-4.3); LYMPH % 39.1 % (20.0-40.0); MEAN CELL VOLUME 81.4 fl (80.0-94.0); MEAN CORPUSCULAR HEMOGLOBIN 27.3 pg (27.0-31.0); MEAN CORPUSCULAR HGB CONC 33.5 g/dL (33.0-37.0); NEUT # 0.1 K/uL (1.8-7.0); NEUT % 33.7 % (50.0-75.0); NRBC % 0.3 % (0.0-0.0); RBC 3.51 Mil/uL (4.40-5.90); RED CELL DISTRIBUTION WIDTH 17.4 % (11.5-14.5)
[2017-05-30 06:54] LABS: ALB/GLOB RATIO 0.8 (1.0-2.1); ALBUMIN 2.2 g/dL (3.5-5.0); CALCIUM 7.8 mg/dL (8.4-10.2)
--- NOTE | 2017-05-30 07:32 | CP.PCM.PN ---
Subjective - Date & Time of Evaluation Date of Evaluation: 05/30/17 Time of Evaluation: 07:32 - Subjective Subjective: Patient seen and examined today in ICU, reports feeling a little better. less tachypneic and less lethargic today. Continue spiking fever. Awaiting transfer to [facility] as per patient and family request. Objective - Vital Signs/Intake and Output Vital Signs (last 24 hours): Temp Pulse Resp BP Pulse Ox 100.1 F H 100 H 17 109/72 100 05/30/17 01:34 05/30/17 06:00 05/30/17 06:00 05/30/17 06:00 05/30/17 06:00 Intake and Output: 05/30/17 05/30/17 06:59 18:59 Intake Total 275 Output Total 600 Balance -325 - Medications Medications: Current Medications Acetaminophen (Tylenol 650mg/20.3ml Solution Ud) 650 mg PO Q4 PRN PRN Reason: Temperature Last Admin: 05/30/17 00:34 Dose: 650 mg Atovaquone (Mepron) 1,500 mg PO DAILY [facility] PRN Reason: Protocol Last Admin: 05/29/17 09:31 Dose: 1,500 mg Furosemide (Lasix) 40 mg IVP DAILY [facility] Last Admin: 05/29/17 09:37 Dose: 40 mg Home Med (Patient's Own Medication) 1 unit PO DAILY [facility]ION Last Admin: 05/29/17 09:35 Dose: 1 unit Meropenem 500 mg/ Sodium (Chloride) 100 mls @ 100 mls/hr IVPB Q8 [facility]ION PRN Reason: Protocol Last Admin: 05/30/17 00:21 Dose: 100 mls/hr Vancomycin HCl 500 mg/ Sodium (Chloride) 100 mls @ 100 mls/hr IVPB DAILY [facility] PRN Reason: Protocol Last Admin: 05/29/17 09:37 Dose: Not Given Micafungin Sodium 50 mg/ (Sodium Chloride) 100 mls @ 100 mls/hr IVPB DAILY [facility] PRN Reason: Protocol Last Admin: 05/29/17 09:34 Dose: 100 mls/hr Lidocaine (Lidoderm) 1 ea TD DAILY [facility] Last Admin: 05/29/17 09:28 Dose: 1 ea Metoprolol Tartrate (Lopressor) 25 mg PO Q12 [facility] Last Admin: 04/22/18 20:13 Dose: 25 mg Morphine Sulfate (Morphine) 2 mg IVP Q4 PRN PRN Reason: Pain, moderate (4-7) Last Admin: 05/23/17 14:45 Dose: 2 mg Nystatin (Nystatin Oral Susp) 5 ml PO QID [facility] Last Admin: 05/29/17 22:00 Dose: 5 ml Ondansetron HCl (Zofran Inj) 4 mg IVP Q6 PRN PRN Reason: Nausea/Vomiting Polyethylene Glycol (Miralax) 17 gm PO DAILY [facility] Last Admin: 05/29/17 10:36 Dose: Not Given Saliva Substitute (First Magic Mouthwash) 5 ml PO Q4 PRN PRN Reason: Sore Throat Last Admin: 05/26/17 08:16 Dose: 5 ml Silver Sulfadiazine (Silvadene 1% 50 Gm) 1 applic TOP Q12 [facility] Last Admin: 05/29/17 22:00 Dose: Not Given - Labs Labs: 05/29/17 05:49 05/30/17 05:00 PT 18.8 Seconds (9.8-13.1) H 05/29/17 05:49 INR 1.7 (0.9-1.2) H 05/29/17 05:49 APTT 46.2 Seconds (25.6-37.1) H 05/29/17 05:49 - Constitutional Appears: Cachectic, Chronically Ill - Eye Exam Eye Exam: EOMI, PERRL, Scleral icterus - Respiratory Exam Respiratory Exam: Clear to Ausculation Bilateral, NORMAL BREATHING PATTERN. absent: Respiratory Distress - Cardiovascular Exam Cardiovascular Exam: Tachycardia, REGULAR RHYTHM, +S1, +S2 - GI/Abdominal Exam GI & Abdominal Exam: Distended, Tenderness, Normal Bowel Sounds - Extremities Exam Extremities Exam: absent: Calf Tenderness Additional comments: Anasarca - Neurological Exam Neurological Exam: Alert, Awake, Oriented x3 - Psychiatric Exam Psychiatric exam: Anxious - Skin Additional comments: Jaundiced Assessment and Plan - Assessment and Plan (Free Text) Assessment: 37 yo male with HIV/AIDS and Hodgkins Lymphoma admitted for pancytopenia now in ICU day#7 with persistent tachycardia, tachypnea, and anasarca. Plan: 1- Pancytopenia & Hodgkins Lymphoma - ID on board, Recs appreciated - c/w Vancomycin and Meropenem IV as prophylaxis (day 13) - s/p chemo cycle #1 4/13/18: ABVD - Hematology/Onc on board, Recs appreciated - s/p 3 unit PRBC and 2 units Platelets -CBC: 0.2<9.6/28.6>13 - Continue Granix as per Heme-Oncology 2- Tachycardia/Tachypnea - Continue High Flow oxygen - Continue Metoprolol 25mg PO Q12 3- Anarsarca - Nephro Dr. Graves recs appreciated: - strict oral fluids restriction - albumin repletion Q8 x 3 days 4- Acute kidney injury, improving - BUN/Cr: 65/1.7 - Fluid restriction and continue Lasix and albumin - Nephrology on board recommendations appreciated 5- Elevated LFTs/bilirubin with liver mets most likely due to malignancy - liver US wnl - GI Dr Austin on board - secondary to chemo/malignancy - MRCP 05/25: negative for biliary obstruction. - ABD xrays: bowel loops distention, possible early bowel obstruction. 6- Oral thrush - c/w PO nystatin - magic mouth wash 7- HIV/AIDS - CD4 count <20, CD4 6% (05/17/17) - C/W current HIV treatment (pt owns medications) - per ID stopped azithro due to interactions w/ chemo (last dose 05/18/17) - c/w Mepron (atovaquone) 1500 mg PO daily (PCP prophylaxis) - start Micafungin 50mg IV daily (prophylaxis) 8- DVT prophylaxis -SCD Only due to Thrombocytopenia 9- Code -Full code, confirmed with patient 05/26/17.
[2017-05-30 08:09] LABS: WHITE BLOOD COUNT 0.2 K/uL (4.8-10.8)
[2017-05-30] MEDS: Lidocaine 5% Patch TD SCH (09:57)
[2017-05-30] MEDS: Atovaquone 750 mg/5 ml Susp UD PO SCH (09:59)
[2017-05-30] MEDS: Nystatin 100,000 Units/ml Oral Susp 5 ml UD PO SCH ×5 (10:02→22:13)
[2017-05-30] MEDS: BIKTARVY PO SCH (10:02)
[2017-05-30] MEDS: POLYETHYLENE GLYCOL 3350 17 GM/Dose PACKET PO SCH (10:03)
--- NOTE | 2017-05-30 10:47 | CP.PCM.PN ---
Subjective - Date & Time of Evaluation Date of Evaluation: 05/30/17 Time of Evaluation: 10:47 - Subjective Subjective: Patient sitting up in bed opening his eyes is responding to some question Appears to be very jaundice. Complaining of weakness debility Objective - Vital Signs/Intake and Output Vital Signs (last 24 hours): Temp Pulse Resp BP Pulse Ox 100.1 F H 120 H 30 H 109/75 100 05/30/17 01:34 05/30/17 09:58 05/30/17 08:31 05/30/17 09:58 05/30/17 06:00 Intake and Output: 05/30/17 05/30/17 06:59 18:59 Intake Total 275 Output Total 600 Balance -325 - Medications Medications: Current Medications Acetaminophen (Tylenol 650mg/20.3ml Solution Ud) 650 mg PO Q4 PRN PRN Reason: Temperature Last Admin: 05/30/17 00:34 Dose: 650 mg Atovaquone (Mepron) 1,500 mg PO DAILY [facility] PRN Reason: Protocol Last Admin: 05/30/17 09:59 Dose: 1,500 mg Furosemide (Lasix) 40 mg IVP DAILY [facility] Last Admin: 05/30/17 09:57 Dose: 40 mg Home Med (Patient's Own Medication) 1 unit PO DAILY [facility] Last Admin: 05/30/17 10:02 Dose: 1 unit Meropenem 500 mg/ Sodium (Chloride) 100 mls @ 100 mls/hr IVPB Q8 [facility] PRN Reason: Protocol Last Admin: 05/30/17 10:00 Dose: 100 mls/hr Vancomycin HCl 500 mg/ Sodium (Chloride) 100 mls @ 100 mls/hr IVPB DAILY [facility] PRN Reason: Protocol Last Admin: 05/29/17 09:37 Dose: Not Given Micafungin Sodium 50 mg/ (Sodium Chloride) 100 mls @ 100 mls/hr IVPB DAILY [facility] PRN Reason: Protocol Last Admin: 05/30/17 10:01 Dose: 100 mls/hr Lidocaine (Lidoderm) 1 ea TD DAILY [facility] Last Admin: 05/30/17 09:57 Dose: 1 ea Metoprolol Tartrate (Lopressor) 25 mg PO Q12 [facility] Last Admin: 05/30/17 09:58 Dose: 25 mg Morphine Sulfate (Morphine) 2 mg IVP Q4 PRN PRN Reason: Pain, moderate (4-7) Last Admin: 05/23/17 14:45 Dose: 2 mg Nystatin (Nystatin Oral Susp) 5 ml PO QID [facility] Last Admin: 05/30/17 10:19 Dose: Not Given Ondansetron HCl (Zofran Inj) 4 mg IVP Q6 PRN PRN Reason: Nausea/Vomiting Polyethylene Glycol (Miralax) 17 gm PO DAILY [facility] Last Admin: 05/30/17 10:03 Dose: Not Given Saliva Substitute (First Magic Mouthwash) 5 ml PO Q4 PRN PRN Reason: Sore Throat Last Admin: 05/26/17 08:16 Dose: 5 ml Silver Sulfadiazine (Silvadene 1% 50 Gm) 1 applic TOP Q12 [facility] Last Admin: 05/29/17 22:00 Dose: Not Given - Labs Labs: 05/30/17 05:00 05/30/17 05:00 PT 18.8 Seconds (9.8-13.1) H 05/29/17 05:49 INR 1.7 (0.9-1.2) H 05/29/17 05:49 APTT 46.2 Seconds (25.6-37.1) H 05/29/17 05:49 - Constitutional Appears: No Acute Distress - ENT Exam ENT Exam: Mucous Membranes Moist - Neck Exam Neck Exam: absent: Lymphadenopathy - Respiratory Exam Respiratory Exam: Rhonchi, NORMAL BREATHING PATTERN. absent: Chest Wall Tenderness - Cardiovascular Exam Cardiovascular Exam: absent: Gallop, JVD, Rubs - GI/Abdominal Exam GI & Abdominal Exam: Distended, Guarding, Normal Bowel Sounds - Extremities Exam Extremities Exam: absent: Calf Tenderness - Back Exam Back Exam: absent: CVA tenderness (L), CVA tenderness (R) - Neurological Exam Neurological Exam: Alert - Skin Skin Exam: absent: Cyanosis Assessment and Plan (1) HIV disease Status: Acute (2) Hodgkin's lymphoma Status: Acute (3) AIDS (acquired immunodeficiency syndrome), CD4 <=200 Status: Acute (4) Anasarca Status: Acute (5) Hepatorenal syndrome Assessment & Plan: #1 acute kidney injury/hepatorenal syndrome. Kidney function improving serum creatinine came down to 1.8. 2 patient extremely jaundice with elevation of bilirubin and abnormal liver enzyme. #3 massive ascites including very large hydrocele/anasarca. #4 lymphomaHodgkin disease. status post chemotherapy #5 metastatic disease.and HIV #6pancytopenia #7 hyponatremia dilutional corrected serum sodium 138 #8 and hypokalemia patient needs potassium supplement #9 I understand that the family taken the patient to another Hospital. Status: Acute
[2017-05-30] MEDS: Silver Sulfadiazine 1% CREAM (50 gm) TOP SCH ×2 (10:57→22:14)
[2017-05-30] MEDS ORDERED: Potassium Chloride 20 mEq/15 ml LIQ UD PO ONE (11:05)
--- NOTE | 2017-05-30 13:13 | CP.CCUPN ---
CCU Subjective - Physician Review Events Since Last Encounter (Free Text): 05/30/17 13:18 The patient was Seen/interviewed and examined by me at the bedside during ICU round, Medical records reviewed and Management issues were discussed and formulated with the house staff. Events reviewed Mr Gautam is 35 Years old Male with HIV on HARRT (CD4 count<20 on 04/25/2017) Vitiligo and recently diagnosed stage 4 Hodgkins Lymphoma (on Tuesday05/09/17 per Hemo/Onc) Patient admitted on 05/20/17 for persistent fevers. Patient received chemo last week, first dose of chemo on 05/20 ICU consult called on 05/24 for recurrent fever (Blood and urine culture NGTD, CXR no infilterate), tachycardia Patient fevers have been chronic likely in the sitting of Hodgkin's Lymphoma Pt AAO x3. Alert, follows commands Denies any chest pain or Palpitations, but SOB on minimal exertion Clinically improving No Vasopressors Awake, comfortable, NAD, on high flow O2 supplement Pt reports feeling little better today. Last 24H I&O 1085/2100 05/30/17 16:43 Patient getting transferred to [facility] for further oncology management, He has been accepted by Oncology and ICU 05/30/17 16:50 MRCP 05/25: No evidence of biliary obstruction. Numerous ill-defined hepatic masses suspicious for metastatic disease. Hepatic splenomegaly. Ascites. CCU Objective - Vital Signs / Intake & Output Vital Signs (Last 4 hours): Vital Signs Pulse Resp BP 05/30/17 12:38 28 H 05/30/17 09:58 120 H 109/75 05/30/17 09:57 109/75 Intake and Output (Last 8hrs): Intake & Output 05/29/17 05/30/17 05/30/17 22:59 06:59 14:59 Intake Total 225 250 Output Total 350 600 Balance -125 -350 Weight 179 lb Intake: IV 0 Intake, Piggyback 100 200 Oral 25 50 Tube Feeding 100 Output: Urine 350 600 Urine, Voided 350 600 - Physical Exam Head: Positive for: Atraumatic, Normocephalic Pupils: Positive for: PERRL. Negative for: Sluggish Extroacular Muscles: Positive for: EOMI Conjunctiva: Positive for: Normal, Icteric. Negative for: Injected Ears: Positive for: Normal Mouth: Positive for: Moist Mucous Membranes Pharnyx: Positive for: Normal Nose (External): Positive for: Atraumatic Neck: Positive for: Normal Range of Motion, Trachea Midline. Negative for: Meningeal Signs, MIDLINE TENDERNESS, Paraspinal Tenderness, JVD, Lymphadenopathy , Bruit, Other Respiratory/Chest: Positive for: Clear to Auscultation, Good Air Exchange, Decreased Breath Sounds, Tachypneic. Negative for: Respiratory Distress, Accessory Muscle Use, Wheezes, Rales, Retracting, Rhonchi Cardiovascular: Positive for: Regular Rate and Rhythm, Normal S1, S2, Peripheal Pulses Present, Tachycardic. Negative for: Murmurs Abdomen: Positive for: Normal Bowel Sounds. Negative for: Tenderness, Distention Back: Negative for: CVA Tenderness Upper Extremity: Positive for: Normal Inspection. Negative for: Cyanosis, Edema , Normal ROM Lower Extremity: Positive for: Normal Inspection, NORMAL PULSES. Negative for: Edema, CALF TENDERNESS Neurological: Positive for: GCS=15, CN II-XII Intact, Speech Normal, Motor Func Grossly Intact, Normal Sensory Function Psychiatric: Positive for: Alert, Oriented x 3 - Medications Active Medications: Active Medications Generic Name Dose Route Start Last Admin Trade Name Freq PRN Reason Stop Dose Admin Acetaminophen 650 mg 05/26/17 10:09 05/30/17 00:34 Tylenol 650mg/20.3ml Solution Ud PO 650 mg Q4 PRN Administration Temperature Atovaquone 1,500 mg 05/21/17 09:00 05/30/17 09:59 Mepron PO 1,500 mg DAILY DARRION Administration Protocol Furosemide 40 mg 05/24/17 09:00 05/30/17 09:57 Lasix IVP 40 mg DAILY [facility] Administration Home Med 1 unit 05/21/17 09:00 05/30/17 10:02 Patient's Own Medication PO 1 unit DAILY [facility] Administration Meropenem 500 mg/ Sodium 100 mls @ 100 mls/hr 05/28/17 17:00 05/30/17 10:00 Chloride IVPB 100 mls/hr Q8 DARRION Administration Protocol Vancomycin HCl 500 mg/ Sodium 100 mls @ 100 mls/hr 05/29/17 09:00 05/29/17 09 :37 Chloride IVPB Not Given DAILY DARRION Protocol Micafungin Sodium 50 mg/ 100 mls @ 100 mls/hr 05/28/17 17:00 05/30/17 10:01 Sodium Chloride IVPB 100 mls/hr DAILY [facility] Administration Protocol Lidocaine 1 ea 05/23/17 11:30 05/30/17 09:57 Lidoderm TD 1 ea DAILY [facility] Administration Metoprolol Tartrate 25 mg 05/24/17 21:00 05/30/17 09:58 Lopressor PO 25 mg Q12 DARRION Administration Morphine Sulfate 2 mg 05/23/17 13:17 05/23/17 14:45 Morphine IVP 2 mg Q4 PRN Administration Pain, moderate (4-7) Nystatin 5 ml 05/22/17 13:00 05/30/17 10:19 Nystatin Oral Susp PO Not Given QID D[facility]ION Ondansetron HCl 4 mg 05/20/17 19:35 Zofran Inj IVP Q6 PRN Nausea/Vomiting Polyethylene Glycol 17 gm 05/28/17 09:00 05/30/17 10:03 Miralax PO Not Given DAILY [facility] Saliva Substitute 5 ml 05/21/17 15:34 05/26/17 08:16 First Magic Mouthwash PO 5 ml Q4 PRN Administration Sore Throat Silver Sulfadiazine 1 applic 05/28/17 11:15 05/30/17 10:57 Silvadene 1% 50 Gm TOP 1 applic Q12 [facility] Administration - Patient Studies Lab Studies: Lab Studies 05/30/17 05/30/17 05/30/17 Range/Units 11:30 11:05 05:00 WBC (4.8-10.8) K/uL RBC (4.40-5.90) Mil/uL Hgb (12.0-18.0) g/dL Hct (35.0-51.0) % MCV (80.0-94.0) fl MCH (27.0-31.0) pg MCHC (33.0-37.0) g/dL RDW (11.5-14.5) % Plt Count (130-400) K/uL MPV (7.2-11.7) fl Neut % (Auto) (50.0-75.0) % Lymph % (Auto) (20.0-40.0) % Slope % (Auto) (0.0-10.0) % Eos % (Auto) (0.0-4.0) % Baso % (Auto) (0.0-2.0) % Neut # (Auto) (1.8-7.0) K/uL Lymph # (Auto) (1.0-4.3) K/uL Slope # (Auto) (0.0-0.8) K/uL Eos # (Auto) (0.0-0.7) K/uL Baso # (Auto) (0.0-0.2) K/uL Total Counted Neutrophils % (Manual) Band Neutrophils % Lymphocytes % (Manual) Reactive Lymphs % Monocytes % (Manual) Eosinophils % (Manual) Basophils % (Manual) Metamyelocytes % Myelocytes % Promyelocytes % Blast Cells % Plasma Cell % (Manual) Nucleated RBC % Hypersegmented Polys Smudge Cells Toxic Granulation Dohle Bodies Jessica Rods Platelet Estimate Plt Clumps, EDTA Large Platelets Giant Platelets RBC Morphology Polychromasia Hypochromasia (manual) Poikilocytosis (manual Basophilic Stippling Anisocytosis (manual) Microcytosis (manual) Macrocytosis (manual) Spherocytes Sickle Cells Target Cells Tear Drop Cells Ovalocytes Stomatocytes Helmet Cells Mckinney-Rector Bodies [place] Cells Acanthocytes (Spur) Rouleaux Schistocytes Sodium 138 (132-148) mmol/l Potassium 3.2 L (3.6-5.0) MMOL/L Chloride 103 (98-107) mmol/L Carbon Dioxide 20 L (22-30) mmol/L Anion Gap 18 (10-20) BUN 65 H (9-20) mg/dl Creatinine 1.7 H (0.8-1.5) mg/dl Est GFR ( Amer) 55 Est GFR (Non-Af Amer) 45 Random Glucose 109 (75-110) mg/dL Calcium 7.8 L (8.4-10.2) mg/dL Magnesium 2.1 (1.6-2.3) MG/DL Total Bilirubin 13.5 H (0.2-1.3) mg/dl AST 48 (17-59) U/L ALT 60 (21-72) U/L Alkaline Phosphatase 1128 H (38-126) U/L Total Protein 5.0 L (6.3-8.2) G/DL Albumin 2.2 L (3.5-5.0) g/dL Globulin 2.8 (2.2-3.9) gm/dL Albumin/Globulin Ratio 0.8 L (1.0-2.1) Vancomycin Trough 8.2 (5.0-10.0) ug/mL 05/30/17 Range/Units 05:00 WBC 0.2 L* D (4.8-10.8) K/uL RBC 3.51 L (4.40-5.90) Mil/uL Hgb 9.6 L (12.0-18.0) g/dL Hct 28.6 L (35.0-51.0) % MCV 81.4 (80.0-94.0) fl MCH 27.3 (27.0-31.0) pg MCHC 33.5 (33.0-37.0) g/dL RDW 17.4 H (11.5-14.5) % Plt Count 13 L* (130-400) K/uL MPV 11.0 (7.2-11.7) fl Neut % (Auto) 33.7 L (50.0-75.0) % Lymph % (Auto) 39.1 (20.0-40.0) % Slope % (Auto) 27.0 H (0.0-10.0) % Eos % (Auto) 0.2 (0.0-4.0) % Baso % (Auto) 0.0 (0.0-2.0) % Neut # (Auto) 0.1 L (1.8-7.0) K/uL Lymph # (Auto) 0.1 L (1.0-4.3) K/uL Slope # (Auto) 0.0 (0.0-0.8) K/uL Eos # (Auto) 0.0 (0.0-0.7) K/uL Baso # (Auto) 0.0 (0.0-0.2) K/uL Total Counted Cancelled Neutrophils % (Manual) Cancelled Band Neutrophils % Cancelled Lymphocytes % (Manual) Cancelled Reactive Lymphs % Cancelled Monocytes % (Manual) Cancelled Eosinophils % (Manual) Cancelled Basophils % (Manual) Cancelled Metamyelocytes % Cancelled Myelocytes % Cancelled Promyelocytes % Cancelled Blast Cells % Cancelled Plasma Cell % (Manual) Cancelled Nucleated RBC % Cancelled Hypersegmented Polys Cancelled Smudge Cells Cancelled Toxic Granulation Cancelled Dohle Bodies Cancelled Jessica Rods Cancelled Platelet Estimate Cancelled Plt Clumps, EDTA Cancelled Large Platelets Cancelled Giant Platelets Cancelled RBC Morphology Cancelled Polychromasia Cancelled Hypochromasia (manual) Cancelled Poikilocytosis (manual Cancelled Basophilic Stippling Cancelled Anisocytosis (manual) Cancelled Microcytosis (manual) Cancelled Macrocytosis (manual) Cancelled Spherocytes Cancelled Sickle Cells Cancelled Target Cells Cancelled Tear Drop Cells Cancelled Ovalocytes Cancelled Stomatocytes Cancelled Helmet Cells Cancelled Mckinney-Rector Bodies Cancelled [place] Cells Cancelled Acanthocytes (Spur) Cancelled Rouleaux Cancelled Schistocytes Cancelled Sodium (132-148) mmol/l Potassium (3.6-5.0) MMOL/L Chloride (98-107) mmol/L Carbon Dioxide (22-30) mmol/L Anion Gap (10-20) BUN (9-20) mg/dl Creatinine (0.8-1.5) mg/dl Est GFR ( Amer) Est GFR (Non-Af Amer) Random Glucose (75-110) mg/dL Calcium (8.4-10.2) mg/dL Magnesium (1.6-2.3) MG/DL Total Bilirubin (0.2-1.3) mg/dl AST (17-59) U/L ALT (21-72) U/L Alkaline Phosphatase (38-126) U/L Total Protein (6.3-8.2) G/DL Albumin (3.5-5.0) g/dL Globulin (2.2-3.9) gm/dL Albumin/Globulin Ratio (1.0-2.1) Vancomycin Trough (5.0-10.0) ug/mL Laboratory Results - last 24 hr 05/30/17 05/30/17 05/30/17 05:00 05:00 11:05 WBC 0.2 L* D RBC 3.51 L Hgb 9.6 L Hct 28.6 L MCV 81.4 MCH 27.3 MCHC 33.5 RDW 17.4 H Plt Count 13 L* MPV 11.0 Neut % (Auto) 33.7 L Lymph % (Auto) 39.1 Slope % (Auto) 27.0 H Eos % (Auto) 0.2 Baso % (Auto) 0.0 Neut # (Auto) 0.1 L Lymph # (Auto) 0.1 L Slope # (Auto) 0.0 Eos # (Auto) 0.0 Baso # (Auto) 0.0 Total Counted Cancelled Neutrophils % (Manual) Cancelled Band Neutrophils % Cancelled Lymphocytes % (Manual) Cancelled Reactive Lymphs % Cancelled Monocytes % (Manual) Cancelled Eosinophils % (Manual) Cancelled Basophils % (Manual) Cancelled Metamyelocytes % Cancelled Myelocytes % Cancelled Promyelocytes % Cancelled Blast Cells % Cancelled Plasma Cell % (Manual) Cancelled Nucleated RBC % Cancelled Hypersegmented Polys Cancelled Smudge Cells Cancelled Toxic Granulation Cancelled Dohle Bodies Cancelled Jessica Rods Cancelled Platelet Estimate Cancelled Plt Clumps, EDTA Cancelled Large Platelets Cancelled Giant Platelets Cancelled RBC Morphology Cancelled Polychromasia Cancelled Hypochromasia (manual) Cancelled Poikilocytosis (manual Cancelled Basophilic Stippling Cancelled Anisocytosis (manual) Cancelled Microcytosis (manual) Cancelled Macrocytosis (manual) Cancelled Spherocytes Cancelled Sickle Cells Cancelled Target Cells Cancelled Tear Drop Cells Cancelled Ovalocytes Cancelled Stomatocytes Cancelled Helmet Cells Cancelled Mckinney-Rector Bodies Cancelled [place] Cells Cancelled Acanthocytes (Spur) Cancelled Rouleaux Cancelled Schistocytes Cancelled Sodium 138 Potassium 3.2 L Chloride 103 Carbon Dioxide 20 L Anion Gap 18 BUN 65 H Creatinine 1.7 H Est GFR ( Amer) 55 Est GFR (Non-Af Amer) 45 Random Glucose 109 Calcium 7.8 L Magnesium 2.1 Total Bilirubin 13.5 H AST 48 ALT 60 Alkaline Phosphatase 1128 H Total Protein 5.0 L Albumin 2.2 L Globulin 2.8 Albumin/Globulin Ratio 0.8 L Vancomycin Trough 05/30/17 11:30 WBC RBC Hgb Hct MCV MCH MCHC RDW Plt Count MPV Neut % (Auto) Lymph % (Auto) Slope % (Auto) Eos % (Auto) Baso % (Auto) Neut # (Auto) Lymph # (Auto) Slope # (Auto) Eos # (Auto) Baso # (Auto) Total Counted Neutrophils % (Manual) Band Neutrophils % Lymphocytes % (Manual) Reactive Lymphs % Monocytes % (Manual) Eosinophils % (Manual) Basophils % (Manual) Metamyelocytes % Myelocytes % Promyelocytes % Blast Cells % Plasma Cell % (Manual) Nucleated RBC % Hypersegmented Polys Smudge Cells Toxic Granulation Dohle Bodies Jessica Rods Platelet Estimate Plt Clumps, EDTA Large Platelets Giant Platelets RBC Morphology Polychromasia Hypochromasia (manual) Poikilocytosis (manual Basophilic Stippling Anisocytosis (manual) Microcytosis (manual) Macrocytosis (manual) Spherocytes Sickle Cells Target Cells Tear Drop Cells Ovalocytes Stomatocytes Helmet Cells Mckinney-Rector Bodies [place] Cells Acanthocytes (Spur) Rouleaux Schistocytes Sodium Potassium Chloride Carbon Dioxide Anion Gap BUN Creatinine Est GFR ( Amer) Est GFR (Non-Af Amer) Random Glucose Calcium Magnesium Total Bilirubin AST ALT Alkaline Phosphatase Total Protein Albumin Globulin Albumin/Globulin Ratio Vancomycin Trough 8.2 Critical Care Progress Note - Nutrition Nutrition: Nutrition Category Date Time Status Regular Diet [DIET] Diets 05/29/17 Breakfast Active Assessment/Plan (1) Fever and chills Current Visit: No Status: Acute Comment: Persistant fever, Likely 2/2 to malignancy Continue with empiric coverage with Vancomycin and Meropenem as per ID And now on micafungin day #3 Blood and urine culture NGTD CXR no infilterate (2) Hodgkin's lymphoma Current Visit: Yes Status: Acute Comment: Stage IV Received the first chemo cycle on 05/20/17 with Adriamycin/Bleomacyn/Vinblastine/ Decarbazine Patient getting transfered to [facility] for further oncology mangement (3) AIDS (acquired immunodeficiency syndrome), CD4 <=200 Current Visit: No Status: Acute Comment: Continue current HIV treatment as per ID Continue Mepron (atovaquone) 1500 mg PO daily for PCP prophylaxis (4) Anasarca Current Visit: No Status: Acute (5) Tachycardia Current Visit: No Status: Acute (6) Elevated LFTs Current Visit: Yes Status: Acute Comment: GI consult on board Elevated LFTs/bilirubin with liver mets most likely due to malignancy and chemo Liver US: wnl MRCP 05/25: No evidence of biliary obstruction. Numerous ill-defined hepatic masses suspicious for metastatic disease. Hepatic splenomegaly. Ascites.
--- NOTE | 2017-05-30 14:11 | CP.PCM.PN ---
Subjective - Date & Time of Evaluation Date of Evaluation: 05/30/17 Time of Evaluation: 14:09 - Subjective Subjective: ID note- pt. seen and examined today in ICU with his family at his bedside. patient sitting up in bed and eating lunch. less tachypneic. less lethargic today. states he feels slightly better today. denies any diarrhea. awaiting transfer to [facility] as per patient family request. Objective - Vital Signs/Intake and Output Vital Signs (last 24 hours): Temp Pulse Resp BP Pulse Ox 100.1 F H 120 H 28 H 109/75 100 05/30/17 01:34 05/30/17 09:58 05/30/17 12:38 05/30/17 09:58 05/30/17 06:00 Intake and Output: 05/30/17 05/30/17 06:59 18:59 Intake Total 275 Output Total 600 Balance -325 - Medications Medications: Current Medications Acetaminophen (Tylenol 650mg/20.3ml Solution Ud) 650 mg PO Q4 PRN PRN Reason: Temperature Last Admin: 05/30/17 00:34 Dose: 650 mg Atovaquone (Mepron) 1,500 mg PO DAILY [facility] PRN Reason: Protocol Last Admin: 05/30/17 09:59 Dose: 1,500 mg Furosemide (Lasix) 40 mg IVP DAILY [facility] Last Admin: 05/30/17 09:57 Dose: 40 mg Home Med (Patient's Own Medication) 1 unit PO DAILY [facility] Last Admin: 05/30/17 10:02 Dose: 1 unit Meropenem 500 mg/ Sodium (Chloride) 100 mls @ 100 mls/hr IVPB Q8 [facility] PRN Reason: Protocol Last Admin: 05/30/17 10:00 Dose: 100 mls/hr Vancomycin HCl 500 mg/ Sodium (Chloride) 100 mls @ 100 mls/hr IVPB DAILY [facility] PRN Reason: Protocol Last Admin: 05/29/17 09:37 Dose: Not Given Micafungin Sodium 50 mg/ (Sodium Chloride) 100 mls @ 100 mls/hr IVPB DAILY [facility] PRN Reason: Protocol Last Admin: 05/30/17 10:01 Dose: 100 mls/hr Lidocaine (Lidoderm) 1 ea TD DAILY [facility] Last Admin: 05/30/17 09:57 Dose: 1 ea Metoprolol Tartrate (Lopressor) 25 mg PO Q12 [facility] Last Admin: 05/30/17 09:58 Dose: 25 mg Morphine Sulfate (Morphine) 2 mg IVP Q4 PRN PRN Reason: Pain, moderate (4-7) Last Admin: 05/23/17 14:45 Dose: 2 mg Nystatin (Nystatin Oral Susp) 5 ml PO QID [facility] Last Admin: 05/30/17 10:19 Dose: Not Given Ondansetron HCl (Zofran Inj) 4 mg IVP Q6 PRN PRN Reason: Nausea/Vomiting Polyethylene Glycol (Miralax) 17 gm PO DAILY [facility] Last Admin: 05/30/17 10:03 Dose: Not Given Saliva Substitute (First Magic Mouthwash) 5 ml PO Q4 PRN PRN Reason: Sore Throat Last Admin: 05/26/17 08:16 Dose: 5 ml Silver Sulfadiazine (Silvadene 1% 50 Gm) 1 applic TOP Q12 [facility] Last Admin: 05/30/17 10:57 Dose: 1 applic - Labs Labs: - Additional Findings Additional findings: - Constitutional Appears: Chronically Ill jaundiced slightly less weak today - Head Exam Head Exam: ATRAUMATIC - Eye Exam Eye Exam: EOMI, PERRL, icteric - Respiratory Exam Respiratory Exam: tachypnea Additional comments: slightly decreased breath sounds at the bases no wheezing - Cardiovascular Exam Cardiovascular Exam: tachycardic , +S1, +S2 - GI/Abdominal Exam Additional comments: minimally less distended no tenderness today, + bowel sounds no guarding No rebound - Extremities Exam Additional comments: 2+ LE edema B/L - Neurological Exam Neurological exam: Alert, Oriented x 3 Laboratory Results - last 72 hr 05/27/17 05/28/17 05/28/17 22:59 06:15 06:15 WBC RBC Hgb Hct MCV MCH MCHC RDW Plt Count MPV Neut % (Auto) Lymph % (Auto) [place] % (Auto) Eos % (Auto) Baso % (Auto) Neut # (Auto) Lymph # (Auto) [place] # (Auto) Eos # (Auto) Baso # (Auto) Total Counted Neutrophils % (Manual) Band Neutrophils % Lymphocytes % (Manual) Reactive Lymphs % Monocytes % (Manual) Eosinophils % (Manual) Basophils % (Manual) Metamyelocytes % Myelocytes % Promyelocytes % Blast Cells % Plasma Cell % (Manual) Nucleated RBC % Hypersegmented Polys Smudge Cells Toxic Granulation Dohle Bodies Jessica Rods Platelet Estimate Plt Clumps, EDTA Large Platelets Giant Platelets RBC Morphology Polychromasia Hypochromasia (manual) Poikilocytosis (manual Basophilic Stippling Anisocytosis (manual) Microcytosis (manual) Macrocytosis (manual) Spherocytes Sickle Cells Target Cells Tear Drop Cells Ovalocytes Stomatocytes Helmet Cells [place] Bodies [place]ron Cells Acanthocytes (Spur) Rouleaux Schistocytes PT INR APTT pCO2 pO2 HCO3 ABG pH ABG Total CO2 ABG O2 Saturation ABG O2 Content ABG Base Excess ABG Hemoglobin ABG Carboxyhemoglobin POC ABG HHb (Measured) ABG Methemoglobin ABG O2 Capacity Terry Test A-a O2 Difference Hgb O2 Saturation Liter Flow Vent Mode FiO2 Sodium 133 Potassium 4.5 Chloride 99 Carbon Dioxide 19 L Anion Gap 20 BUN 74 H Creatinine 2.2 H Est GFR ( Amer) 41 Est GFR (Non-Af Amer) 33 Random Glucose 116 H Uric Acid 5.2 Calcium 8.0 L Magnesium Total Bilirubin AST ALT Alkaline Phosphatase Total Protein Albumin Globulin Albumin/Globulin Ratio Vancomycin Trough 13.5 H Blood Type O POSITIVE Antibody Screen Negative Crossmatch See Detail BBK History Checked Patient has bt 05/28/17 05/28/17 05/29/17 06:15 20:01 00:19 WBC 0.1 L* D 0.1 L* RBC 2.66 L 3.64 L Hgb 7.2 L 10.1 L D Hct 21.3 L 29.2 L MCV 80.1 80.3 MCH 26.9 L 27.8 MCHC 33.6 34.6 RDW 18.6 H 17.5 H Plt Count 17 L* 20 L* MPV 10.1 Neut % (Auto) 6.3 L Lymph % (Auto) 73.4 H [place] % (Auto) 19.5 H Eos % (Auto) 0.8 Baso % (Auto) 0.0 Neut # (Auto) 0.0 L Lymph # (Auto) 0.0 L [place] # (Auto) 0.0 Eos # (Auto) 0.0 Baso # (Auto) 0.0 Total Counted Neutrophils % (Manual) 1 L Band Neutrophils % Lymphocytes % (Manual) 8 L Reactive Lymphs % Monocytes % (Manual) 1 Eosinophils % (Manual) Basophils % (Manual) Metamyelocytes % Myelocytes % Promyelocytes % Blast Cells % Plasma Cell % (Manual) Nucleated RBC % Hypersegmented Polys Smudge Cells Toxic Granulation Dohle Bodies Jessica Rods Platelet Estimate Markedly decreased L Plt Clumps, EDTA Large Platelets Giant Platelets RBC Morphology Polychromasia Hypochromasia (manual) Moderate Poikilocytosis (manual Slight Basophilic Stippling Anisocytosis (manual) Moderate Microcytosis (manual) Macrocytosis (manual) Spherocytes Sickle Cells Target Cells Tear Drop Cells Slight Ovalocytes Slight Stomatocytes Helmet Cells [place] Bodies [place] Cells Acanthocytes (Spur) Rouleaux Schistocytes Slight PT INR APTT pCO2 27 L pO2 89 HCO3 23.9 ABG pH 7.50 H ABG Total CO2 21.9 L ABG O2 Saturation 99.9 H ABG O2 Content 13.7 L ABG Base Excess -1.3 ABG Hemoglobin 10.0 L ABG Carboxyhemoglobin 2.0 H POC ABG HHb (Measured) 0.1 ABG Methemoglobin 1.1 ABG O2 Capacity 13.7 L Terry Test Yes A-a O2 Difference 162.0 Hgb O2 Saturation 96.8 Liter Flow 20 Vent Mode High flow lpm FiO2 40.0 Sodium Potassium Chloride Carbon Dioxide Anion Gap BUN Creatinine Est GFR ( Amer) Est GFR (Non-Af Amer) Random Glucose Uric Acid Calcium Magnesium Total Bilirubin AST ALT Alkaline Phosphatase Total Protein Albumin Globulin Albumin/Globulin Ratio Vancomycin Trough Blood Type Antibody Screen Crossmatch BBK History Checked 05/29/17 05/29/17 05/29/17 05:49 05:49 05:49 WBC 0.1 L* RBC 3.41 L Hgb 9.5 L Hct 27.4 L MCV 80.3 MCH 27.8 MCHC 34.6 RDW 17.3 H Plt Count 17 L* MPV 10.1 Neut % (Auto) 0.7 L Lymph % (Auto) 68.2 H [place] % (Auto) 23.0 H Eos % (Auto) 8.1 H Baso % (Auto) 0.0 Neut # (Auto) 0.0 L Lymph # (Auto) 0.0 L [place] # (Auto) 0.0 Eos # (Auto) 0.0 Baso # (Auto) 0.0 Total Counted Neutrophils % (Manual) TEST NOT PERFORMED Band Neutrophils % Lymphocytes % (Manual) 100 H Reactive Lymphs % Monocytes % (Manual) TEST NOT PERFORMED Eosinophils % (Manual) Basophils % (Manual) Metamyelocytes % Myelocytes % Promyelocytes % Blast Cells % Plasma Cell % (Manual) Nucleated RBC % Hypersegmented Polys Smudge Cells Toxic Granulation Dohle Bodies Jessica Rods Platelet Estimate Markedly decreased L Plt Clumps, EDTA Large Platelets Giant Platelets RBC Morphology Polychromasia Hypochromasia (manual) Slight Poikilocytosis (manual Slight Basophilic Stippling Anisocytosis (manual) Slight Microcytosis (manual) Macrocytosis (manual) Spherocytes Sickle Cells Target Cells Tear Drop Cells Slight Ovalocytes Slight Stomatocytes Slight Helmet Cells [place] Bodies [place] Cells Acanthocytes (Spur) Rouleaux Slight Schistocytes PT 18.8 H INR 1.7 H APTT 46.2 H pCO2 pO2 HCO3 ABG pH ABG Total CO2 ABG O2 Saturation ABG O2 Content ABG Base Excess ABG Hemoglobin ABG Carboxyhemoglobin POC ABG HHb (Measured) ABG Methemoglobin ABG O2 Capacity Terry Test A-a O2 Difference Hgb O2 Saturation Liter Flow Vent Mode FiO2 Sodium 138 Potassium 3.5 L Chloride 104 Carbon Dioxide 19 L Anion Gap 19 BUN 69 H Creatinine 1.9 H Est GFR ( Amer) 48 Est GFR (Non-Af Amer) 40 Random Glucose 101 Uric Acid Calcium 7.9 L Magnesium Total Bilirubin 11.6 H AST 31 ALT 39 Alkaline Phosphatase 835 H Total Protein 5.1 L Albumin 2.3 L Globulin 2.8 Albumin/Globulin Ratio 0.8 L Vancomycin Trough Blood Type Antibody Screen Crossmatch BBK History Checked 05/29/17 05/30/17 05/30/17 05:49 05:00 05:00 WBC 0.2 L* D RBC 3.51 L Hgb 9.6 L Hct 28.6 L MCV 81.4 MCH 27.3 MCHC 33.5 RDW 17.4 H Plt Count 13 L* MPV 11.0 Neut % (Auto) 33.7 L Lymph % (Auto) 39.1 [place] % (Auto) 27.0 H Eos % (Auto) 0.2 Baso % (Auto) 0.0 Neut # (Auto) 0.1 L Lymph # (Auto) 0.1 L [place] # (Auto) 0.0 Eos # (Auto) 0.0 Baso # (Auto) 0.0 Total Counted Cancelled Neutrophils % (Manual) Cancelled Band Neutrophils % Cancelled Lymphocytes % (Manual) Cancelled Reactive Lymphs % Cancelled Monocytes % (Manual) Cancelled Eosinophils % (Manual) Cancelled Basophils % (Manual) Cancelled Metamyelocytes % Cancelled Myelocytes % Cancelled Promyelocytes % Cancelled Blast Cells % Cancelled Plasma Cell % (Manual) Cancelled Nucleated RBC % Cancelled Hypersegmented Polys Cancelled Smudge Cells Cancelled Toxic Granulation Cancelled Dohle Bodies Cancelled Jessica Rods Cancelled Platelet Estimate Cancelled Plt Clumps, EDTA Cancelled Large Platelets Cancelled Giant Platelets Cancelled RBC Morphology Cancelled Polychromasia Cancelled Hypochromasia (manual) Cancelled Poikilocytosis (manual Cancelled Basophilic Stippling Cancelled Anisocytosis (manual) Cancelled Microcytosis (manual) Cancelled Macrocytosis (manual) Cancelled Spherocytes Cancelled Sickle Cells Cancelled Target Cells Cancelled Tear Drop Cells Cancelled Ovalocytes Cancelled Stomatocytes Cancelled Helmet Cells Cancelled [place] Bodies Cancelled Kamron Cells Cancelled Acanthocytes (Spur) Cancelled Rouleaux Cancelled Schistocytes Cancelled PT INR APTT pCO2 pO2 HCO3 ABG pH ABG Total CO2 ABG O2 Saturation ABG O2 Content ABG Base Excess ABG Hemoglobin ABG Carboxyhemoglobin POC ABG HHb (Measured) ABG Methemoglobin ABG O2 Capacity Terry Test A-a O2 Difference Hgb O2 Saturation Liter Flow Vent Mode FiO2 Sodium 138 Potassium 3.2 L Chloride 103 Carbon Dioxide 20 L Anion Gap 18 BUN 65 H Creatinine 1.7 H Est GFR ( Amer) 55 Est GFR (Non-Af Amer) 45 Random Glucose 109 Uric Acid Calcium 7.8 L Magnesium Total Bilirubin 13.5 H AST 48 ALT 60 Alkaline Phosphatase 1128 H Total Protein 5.0 L Albumin 2.2 L Globulin 2.8 Albumin/Globulin Ratio 0.8 L Vancomycin Trough 15.6 H Blood Type Antibody Screen Crossmatch BBK History Checked 05/30/17 05/30/17 11:05 11:30 WBC RBC Hgb Hct MCV MCH MCHC RDW Plt Count MPV Neut % (Auto) Lymph % (Auto) [place] % (Auto) Eos % (Auto) Baso % (Auto) Neut # (Auto) Lymph # (Auto) [place] # (Auto) Eos # (Auto) Baso # (Auto) Total Counted Neutrophils % (Manual) Band Neutrophils % Lymphocytes % (Manual) Reactive Lymphs % Monocytes % (Manual) Eosinophils % (Manual) Basophils % (Manual) Metamyelocytes % Myelocytes % Promyelocytes % Blast Cells % Plasma Cell % (Manual) Nucleated RBC % Hypersegmented Polys Smudge Cells Toxic Granulation Dohle Bodies Jessica Rods Platelet Estimate Plt Clumps, EDTA Large Platelets Giant Platelets RBC Morphology Polychromasia Hypochromasia (manual) Poikilocytosis (manual Basophilic Stippling Anisocytosis (manual) Microcytosis (manual) Macrocytosis (manual) Spherocytes Sickle Cells Target Cells Tear Drop Cells Ovalocytes Stomatocytes Helmet Cells [place] Bodies [place] Cells Acanthocytes (Spur) Rouleaux Schistocytes PT INR APTT pCO2 pO2 HCO3 ABG pH ABG Total CO2 ABG O2 Saturation ABG O2 Content ABG Base Excess ABG Hemoglobin ABG Carboxyhemoglobin POC ABG HHb (Measured) ABG Methemoglobin ABG O2 Capacity Terry Test A-a O2 Difference Hgb O2 Saturation Liter Flow Vent Mode FiO2 Sodium Potassium Chloride Carbon Dioxide Anion Gap BUN Creatinine Est GFR ( Amer) Est GFR (Non-Af Amer) Random Glucose Uric Acid Calcium Magnesium 2.1 Total Bilirubin AST ALT Alkaline Phosphatase Total Protein Albumin Globulin Albumin/Globulin Ratio Vancomycin Trough 8.2 Blood Type Antibody Screen Crossmatch BBK History Checked Microbiology 05/23/17 17:41 Blood-Venous Blood Culture - Final NO GROWTH AFTER 5 DAYS 05/23/17 17:41 Blood-Venous Blood Culture - Final NO GROWTH AFTER 5 DAYS 05/23/17 17:41 Blood-Venous Gram Stain - Final TEST NOT PERFORMED 05/25/17 08:28 Stool Stool Culture - Final NO SALMONELLA, SHIGELLA OR CAMPYLOBACTER ISOLATED. 05/24/17 22:03 Nose MRSA Culture (Admit) - Final MRSA NOT DETECTED 05/20/17 17:32 Blood-Venous Blood Culture - Final NO GROWTH AFTER 5 DAYS 05/20/17 17:32 Blood-Venous Gram Stain - Final TEST NOT PERFORMED 05/21/17 10:30 Urine,Random Urine Culture - Final No Growth (<1,000 CFU/ML) Assessment and Plan (1) HIV disease Status: Acute (2) Hodgkin's lymphoma Status: Acute (3) Anasarca Status: Acute (4) Fever Status: Acute - Assessment and Plan (Free Text) Assessment: A/P- 37 year old male with HIV f/u at [facility] on [address] with UD VL but CD4-17 , newly diagnosed stage $ Hodgkin;s lymphoma s/p first chemo yesterday admitted with weakness. tempspikes persist but trending down ADONAY- better today tachycardic, jaundiced anasarca less tachypneic today all blood and urine cx negative to date TTE negative for vegetations as per report. pancytopneic abd xray- dilated small bowel as per report. stool c.diff- negative wbc- 0.2 today plan- continue with empiric IV vancomycin day #14 since pt. is immunocompromised / neutroprnic and febrile. keep vanco trough <15. dose based on GFR. continue with empiric meropnem day #12 to cover for nosocomial pathogens since pt. was recently hospitalized and is severely neutropenic post chemo. dose renally. continue with micafungin day #3 for empiric antifungal for neutropenic fever. all above d/w patient and his mother who is at bedside and they verbalize full understanding of all above and agree with above plan of care. condition guarded. ICU time 50 minutes.
--- NOTE | 2017-05-30 21:36 | CP.PCM.PN ---
Subjective - Date & Time of Evaluation Date of Evaluation: 05/30/17 Time of Evaluation: 19:45 - Subjective Subjective: Feels better today cont. to have abdominal swelling and discomfort Objective - Vital Signs/Intake and Output Vital Signs (last 24 hours): Temp Pulse Resp BP Pulse Ox 99.9 F H 129 H 24 117/68 98 05/30/17 16:00 05/30/17 20:36 05/30/17 20:19 05/30/17 20:36 05/30/17 18:00 Intake and Output: 05/30/17 05/31/17 18:59 06:59 Intake Total 520 Output Total 2051 Balance -1531 - Medications Medications: Current Medications Acetaminophen (Tylenol 650mg/20.3ml Solution Ud) 650 mg PO Q4 PRN PRN Reason: Temperature Last Admin: 05/30/17 00:34 Dose: 650 mg Atovaquone (Mepron) 1,500 mg PO DAILY [facility] PRN Reason: Protocol Last Admin: 05/30/17 09:59 Dose: 1,500 mg Furosemide (Lasix) 40 mg IVP DAILY [facility] Last Admin: 05/30/17 09:57 Dose: 40 mg Home Med (Patient's Own Medication) 1 unit PO DAILY [facility] Last Admin: 05/30/17 10:02 Dose: 1 unit Meropenem 500 mg/ Sodium (Chloride) 100 mls @ 100 mls/hr IVPB Q8 [facility] PRN Reason: Protocol Last Admin: 05/30/17 16:23 Dose: 100 mls/hr Vancomycin HCl 500 mg/ Sodium (Chloride) 100 mls @ 100 mls/hr IVPB DAILY [facility] PRN Reason: Protocol Last Admin: 05/30/17 16:24 Dose: 100 mls/hr Micafungin Sodium 50 mg/ (Sodium Chloride) 100 mls @ 100 mls/hr IVPB DAILY [facility] PRN Reason: Protocol Last Admin: 05/30/17 10:01 Dose: 100 mls/hr Lidocaine (Lidoderm) 1 ea TD DAILY [facility] Last Admin: 05/30/17 09:57 Dose: 1 ea Metoprolol Tartrate (Lopressor) 25 mg PO Q12 [facility] Last Admin: 05/30/17 20:36 Dose: 25 mg Morphine Sulfate (Morphine) 2 mg IVP Q4 PRN PRN Reason: Pain, moderate (4-7) Last Admin: 05/23/17 14:45 Dose: 2 mg Nystatin (Nystatin Oral Susp) 5 ml PO QID [facility] Last Admin: 05/30/17 16:24 Dose: 5 ml Ondansetron HCl (Zofran Inj) 4 mg IVP Q6 PRN PRN Reason: Nausea/Vomiting Polyethylene Glycol (Miralax) 17 gm PO DAILY [facility] Last Admin: 05/30/17 10:03 Dose: Not Given Saliva Substitute (First Magic Mouthwash) 5 ml PO Q4 PRN PRN Reason: Sore Throat Last Admin: 05/26/17 08:16 Dose: 5 ml Silver Sulfadiazine (Silvadene 1% 50 Gm) 1 applic TOP Q12 [facility] Last Admin: 05/30/17 10:57 Dose: 1 applic - Labs Labs: 05/30/17 05:00 05/30/17 05:00 PT 18.8 Seconds (9.8-13.1) H 05/29/17 05:49 INR 1.7 (0.9-1.2) H 05/29/17 05:49 APTT 46.2 Seconds (25.6-37.1) H 05/29/17 05:49 - Head Exam Head Exam: ATRAUMATIC - Eye Exam Eye Exam: Scleral icterus - ENT Exam ENT Exam: Mucous Membranes Dry - Respiratory Exam Respiratory Exam: Decreased Breath Sounds - Cardiovascular Exam Cardiovascular Exam: +S1, +S2 - GI/Abdominal Exam GI & Abdominal Exam: Normal Bowel Sounds - Extremities Exam Extremities Exam: Pedal Edema Assessment and Plan (1) Pancytopenia Assessment & Plan: secondary to chemotherapy and AIDS neutropenic precautions; on daily GCSF until ANC > 500 transfusion support PRN goal plt > 10,000 Status: Acute (2) Hodgkin's lymphoma Assessment & Plan: stage IVb large tumor burden in the liver; Dbili remains elevated s/p 1st cycle ABVD on 05/[address] Molina who accepted the patient for transfer to [place]. Status: Acute
[2017-05-31] MEDS: Meropenem 500 MG in Sodium Chloride 0.9% 100 ML IVPB SCH ×3 (00:27→16:00)
[2017-05-31 05:58] LABS: HEMOGLOBIN 10.5 g/dL (12.0-18.0); MEAN CELL VOLUME 81.3 fl (80.0-94.0); MEAN CORPUSCULAR HEMOGLOBIN 27.2 pg (27.0-31.0); MEAN CORPUSCULAR HGB CONC 33.5 g/dL (33.0-37.0); RBC 3.86 Mil/uL (4.40-5.90); RED CELL DISTRIBUTION WIDTH 17.4 % (11.5-14.5)
[2017-05-31 06:23] LABS: WHITE BLOOD COUNT 1.4 K/uL (4.8-10.8)
[2017-05-31 06:31] LABS: CALCIUM 8.5 mg/dL (8.4-10.2); URIC ACID 4.8 mg/Dl (3.5-8.5)
[2017-05-31] MEDS: Nystatin 100,000 Units/ml Oral Susp 5 ml UD PO SCH ×3 (08:22→16:00)
[2017-05-31] MEDS: Lidocaine 5% Patch TD SCH (08:22)
[2017-05-31] MEDS: Atovaquone 750 mg/5 ml Susp UD PO SCH (08:23)
[2017-05-31] MEDS: BIKTARVY PO SCH (08:25)
[2017-05-31] MEDS: Silver Sulfadiazine 1% CREAM (50 gm) TOP SCH (08:25)
[2017-05-31] MEDS: POLYETHYLENE GLYCOL 3350 17 GM/Dose PACKET PO SCH (08:25)
--- NOTE | 2017-05-31 08:30 | CP.PCM.PN ---
Subjective - Date & Time of Evaluation Date of Evaluation: 05/31/17 Time of Evaluation: 07:15 - Subjective Subjective: Patient seen and examined in morning rounding, reports feeling a little better and states les sob. Continue low grade fever. Anasarca, jaundiced. Awaiting transfer to [facility]. Objective - Vital Signs/Intake and Output Vital Signs (last 24 hours): Temp Pulse Resp BP Pulse Ox 98.2 F 114 H 38 H 111/68 98 05/31/17 08:00 05/31/17 08:00 05/31/17 08:00 05/31/17 08:00 05/31/17 08:00 Intake and Output: 05/31/17 05/31/17 06:59 18:59 Intake Total 60 Output Total 600 Balance -540 - Medications Medications: Current Medications Acetaminophen (Tylenol 650mg/20.3ml Solution Ud) 650 mg PO Q4 PRN PRN Reason: Temperature Last Admin: 05/30/17 00:34 Dose: 650 mg Atovaquone (Mepron) 1,500 mg PO DAILY [facility] PRN Reason: Protocol Last Admin: 05/30/17 09:59 Dose: 1,500 mg Furosemide (Lasix) 40 mg IVP DAILY [facility] Last Admin: 05/30/17 09:57 Dose: 40 mg Home Med (Patient's Own Medication) 1 unit PO DAILY [facility] Last Admin: 05/30/17 10:02 Dose: 1 unit Meropenem 500 mg/ Sodium (Chloride) 100 mls @ 100 mls/hr IVPB Q8 [facility] PRN Reason: Protocol Last Admin: 05/31/17 00:27 Dose: 100 mls/hr Vancomycin HCl 500 mg/ Sodium (Chloride) 100 mls @ 100 mls/hr IVPB DAILY [facility] PRN Reason: Protocol Last Admin: 05/30/17 16:24 Dose: 100 mls/hr Micafungin Sodium 50 mg/ (Sodium Chloride) 100 mls @ 100 mls/hr IVPB DAILY [facility] PRN Reason: Protocol Last Admin: 05/30/17 10:01 Dose: 100 mls/hr Lidocaine (Lidoderm) 1 ea TD DAILY [facility] Last Admin: 05/30/17 09:57 Dose: 1 ea Metoprolol Tartrate (Lopressor) 25 mg PO Q12 [facility] Last Admin: 05/30/17 20:36 Dose: 25 mg Morphine Sulfate (Morphine) 2 mg IVP Q4 PRN PRN Reason: Pain, moderate (4-7) Last Admin: 05/23/17 14:45 Dose: 2 mg Nystatin (Nystatin Oral Susp) 5 ml PO QID [facility] Last Admin: 05/30/17 22:13 Dose: 5 ml Ondansetron HCl (Zofran Inj) 4 mg IVP Q6 PRN PRN Reason: Nausea/Vomiting Polyethylene Glycol (Miralax) 17 gm PO DAILY [facility] Last Admin: 05/30/17 10:03 Dose: Not Given Saliva Substitute (First Magic Mouthwash) 5 ml PO Q4 PRN PRN Reason: Sore Throat Last Admin: 05/26/17 08:16 Dose: 5 ml Silver Sulfadiazine (Silvadene 1% 50 Gm) 1 applic TOP Q12 [facility] Last Admin: 05/30/17 22:14 Dose: 1 applic - Labs Labs: 05/31/17 05:00 05/31/17 05:00 PT 18.8 Seconds (9.8-13.1) H 05/29/17 05:49 INR 1.7 (0.9-1.2) H 05/29/17 05:49 APTT 46.2 Seconds (25.6-37.1) H 05/29/17 05:49 - Constitutional Appears: Cachectic, Chronically Ill - Eye Exam Eye Exam: Scleral icterus - ENT Exam ENT Exam: Mucous Membranes Dry - Respiratory Exam Respiratory Exam: Clear to Ausculation Bilateral, NORMAL BREATHING PATTERN. absent: Rales, Wheezes - Cardiovascular Exam Cardiovascular Exam: Tachycardia, REGULAR RHYTHM, +S1, +S2 - GI/Abdominal Exam GI & Abdominal Exam: Distended, Tenderness, Normal Bowel Sounds - Exam Exam: Scrotal Swelling - Extremities Exam Additional comments: edematous b/l LE - Neurological Exam Neurological Exam: Alert, Awake, Oriented x3 - Skin Additional comments: Jaundiced Assessment and Plan - Assessment and Plan (Free Text) Assessment: 37 yo male with HIV/AIDS and Hodgkins Lymphoma admitted for pancytopenia now in ICU day#7 with persistent tachycardia, tachypnea, and anasarca. Plan: 1- Pancytopenia & Hodgkins Lymphoma - ID on board, Recs appreciated - c/w Vancomycin and Meropenem IV as prophylaxis (day 14) - s/p chemo cycle #1 05/20/17: ABVD - Hematology/Onc on board, Recs appreciated - s/p 3 unit PRBC and 2 units Platelets -CBC: 1.4<10.5/31.3>17 2- Tachycardia/Tachypnea - Continue High Flow oxygen - Continue Metoprolol 25mg PO Q12 3- Anarsarca - Nephro Dr. Graves recs appreciated: - strict oral fluids restriction 4- Acute kidney injury, improving - BUN/Cr: 62/1.6 - Nephrology on board recommendations appreciated. 5- Elevated LFTs/bilirubin most likely due to liver mets - GI Dr Austin on board - secondary to chemo/malignancy - MRCP 05/25: negative for biliary obstruction. - ABD xrays: bowel loops distention, possible bowel obstruction. 6- Oral thrush - c/w PO nystatin - magic mouth wash 7- HIV/AIDS - CD4 count <20, CD4 6% (05/17/17) - C/W current HIV treatment (pt owns medications) - per ID stopped azithro due to interactions w/ chemo (last dose 05/18/17) - c/w Mepron (atovaquone) 1500 mg PO daily (PCP prophylaxis) - start Micafungin 50mg IV daily (prophylaxis) 8- DVT prophylaxis -SCD Only due to Thrombocytopenia 9- Code -Full code, confirmed with patient 05/26/17.
--- NOTE | 2017-05-31 08:51 | CP.PCM.PN ---
Subjective - Date & Time of Evaluation Date of Evaluation: 05/31/17 Time of Evaluation: 08:51 - Subjective Subjective: Patient sitting up in bed appears to be more awake Patient is responding feeling much better (somewhat) Family member at the bedside trying to feed him. Patient appeared to be jaundice Objective - Vital Signs/Intake and Output Vital Signs (last 24 hours): Temp Pulse Resp BP Pulse Ox 98.2 F 117 H 38 H 111/68 98 05/31/17 08:00 05/31/17 08:23 05/31/17 08:00 05/31/17 08:31 05/31/17 08:00 Intake and Output: 05/31/17 05/31/17 06:59 18:59 Intake Total 60 Output Total 600 Balance -540 - Medications Medications: Current Medications Acetaminophen (Tylenol 650mg/20.3ml Solution Ud) 650 mg PO Q4 PRN PRN Reason: Temperature Last Admin: 05/30/17 00:34 Dose: 650 mg Atovaquone (Mepron) 1,500 mg PO DAILY DARRION PRN Reason: Protocol Last Admin: 05/31/17 08:23 Dose: 1,500 mg Furosemide (Lasix) 40 mg IVP DAILY [facility] Last Admin: 05/31/17 08:31 Dose: 40 mg Home Med (Patient's Own Medication) 1 unit PO DAILY DARRION Last Admin: 05/31/17 08:25 Dose: 1 unit Meropenem 500 mg/ Sodium (Chloride) 100 mls @ 100 mls/hr IVPB Q8 DARRION PRN Reason: Protocol Last Admin: 05/31/17 08:24 Dose: 100 mls/hr Vancomycin HCl 500 mg/ Sodium (Chloride) 100 mls @ 100 mls/hr IVPB DAILY DARRION PRN Reason: Protocol Last Admin: 05/30/17 16:24 Dose: 100 mls/hr Micafungin Sodium 50 mg/ (Sodium Chloride) 100 mls @ 100 mls/hr IVPB DAILY DARRION PRN Reason: Protocol Last Admin: 05/30/17 10:01 Dose: 100 mls/hr Lidocaine (Lidoderm) 1 ea TD DAILY [facility] Last Admin: 05/31/17 08:22 Dose: 1 ea Metoprolol Tartrate (Lopressor) 25 mg PO Q12 DARRION Last Admin: 05/31/17 08:23 Dose: 25 mg Morphine Sulfate (Morphine) 2 mg IVP Q4 PRN PRN Reason: Pain, moderate (4-7) Last Admin: 05/23/17 14:45 Dose: 2 mg Nystatin (Nystatin Oral Susp) 5 ml PO QID [facility] Last Admin: 05/31/17 08:22 Dose: 5 ml Ondansetron HCl (Zofran Inj) 4 mg IVP Q6 PRN PRN Reason: Nausea/Vomiting Polyethylene Glycol (Miralax) 17 gm PO DAILY [facility] Last Admin: 05/31/17 08:25 Dose: 17 gm Saliva Substitute (First Magic Mouthwash) 5 ml PO Q4 PRN PRN Reason: Sore Throat Last Admin: 05/26/17 08:16 Dose: 5 ml Silver Sulfadiazine (Silvadene 1% 50 Gm) 1 applic TOP Q12 [facility] Last Admin: 05/31/17 08:25 Dose: 1 applic - Labs Labs: 05/31/17 05:00 05/31/17 05:00 PT 18.8 Seconds (9.8-13.1) H 05/29/17 05:49 INR 1.7 (0.9-1.2) H 05/29/17 05:49 APTT 46.2 Seconds (25.6-37.1) H 05/29/17 05:49 - Constitutional Appears: No Acute Distress - ENT Exam ENT Exam: Mucous Membranes Moist - Neck Exam Neck Exam: absent: Lymphadenopathy - Respiratory Exam Respiratory Exam: Rhonchi. absent: Chest Wall Tenderness - Cardiovascular Exam Cardiovascular Exam: absent: Gallop, JVD, Rubs - GI/Abdominal Exam GI & Abdominal Exam: Soft, Normal Bowel Sounds - Extremities Exam Extremities Exam: absent: Calf Tenderness - Back Exam Back Exam: absent: CVA tenderness (L), CVA tenderness (R) - Neurological Exam Neurological Exam: Altered - Skin Skin Exam: absent: Cyanosis Assessment and Plan (1) HIV disease Status: Acute (2) Hodgkin's lymphoma Status: Acute (3) AIDS (acquired immunodeficiency syndrome), CD4 <=200 Status: Acute (4) Anasarca Status: Acute (5) Hepatorenal syndrome Assessment & Plan: #1 acute kidney injury/hepatorenal syndrome. Kidney function improving serum creatinine came down to 1.7 2 patient extremely jaundice with elevation of bilirubin and abnormal liver enzyme. #3 massive ascites including very large hydrocele/anasarca. #4 lymphomaHodgkin disease. status post chemotherapy #5 metastatic disease. HIV #6pancytopenia #7 hyponatremia dilutional NA 132 serum sodium dropping down from yesterday #8 and hypokalemia corrected from yesterday serum potassium 3.9 today #9 I understand that the family taken the patient to another Hospital. Status: Acute
--- NOTE | 2017-05-31 10:58 | CP.PCM.DIS ---
Provider - Provider Date of Admission: 05/20/17 17:29 Attending physician: Jazzy Gurrola MD Consults: Oncology: Dr Seth Palmer. ID: Dr Corey Rich. Nephro: Dr Kvng Graves. GI: Dr Arun Austin. ICU: Dr Hoang Bermeo. Time Spent in preparation of Discharge (in minutes): 30 Diagnosis - Discharge Diagnosis (1) AIDS (acquired immunodeficiency syndrome), CD4 <=200 Status: Acute Priority: High (2) Hodgkin's lymphoma Status: Acute (3) Anasarca Status: Acute (4) Fever Status: Acute (5) Elevated LFTs Status: Acute (6) Pancytopenia Status: Acute (7) ADONAY (acute kidney injury) Status: Acute (8) Hepatorenal syndrome Status: Acute Hospital Course - Lab Results Lab Results: Micro Results 05/23/17 17:41 Blood-Venous Blood Culture - Final NO GROWTH AFTER 5 DAYS 05/23/17 17:41 Blood-Venous Blood Culture - Final NO GROWTH AFTER 5 DAYS 05/23/17 17:41 Blood-Venous Gram Stain - Final TEST NOT PERFORMED 05/25/17 08:28 Stool Stool Culture - Final NO SALMONELLA, SHIGELLA OR CAMPYLOBACTER ISOLATED. 05/24/17 22:03 Nose MRSA Culture (Admit) - Final MRSA NOT DETECTED 05/20/17 17:32 Blood-Venous Blood Culture - Final NO GROWTH AFTER 5 DAYS 05/20/17 17:32 Blood-Venous Gram Stain - Final TEST NOT PERFORMED 05/21/17 10:30 Urine,Random Urine Culture - Final No Growth (<1,000 CFU/ML) Most Recent Lab Values WBC 1.4 K/uL (4.8-10.8) L* D 05/31/17 05:00 RBC 3.86 Mil/uL (4.40-5.90) L 05/31/17 05:00 Hgb 10.5 g/dL (12.0-18.0) L 05/31/17 05:00 Hct 31.3 % (35.0-51.0) L 05/31/17 05:00 MCV 81.3 fl (80.0-94.0) 05/31/17 05:00 MCH 27.2 pg (27.0-31.0) 05/31/17 05:00 MCHC 33.5 g/dL (33.0-37.0) 05/31/17 05:00 RDW 17.4 % (11.5-14.5) H 05/31/17 05:00 Plt Count 17 K/uL (130-400) L* 05/31/17 05:00 MPV 11.0 fl (7.2-11.7) 05/30/17 05:00 Neut % (Auto) 33.7 % (50.0-75.0) L 05/30/17 05:00 Lymph % (Auto) 39.1 % (20.0-40.0) 05/30/17 05:00 [place] % (Auto) 27.0 % (0.0-10.0) H 05/30/17 05:00 Eos % (Auto) 0.2 % (0.0-4.0) 05/30/17 05:00 Baso % (Auto) 0.0 % (0.0-2.0) 05/30/17 05:00 Neut # (Auto) 0.1 K/uL (1.8-7.0) L 05/30/17 05:00 Lymph # (Auto) 0.1 K/uL (1.0-4.3) L 05/30/17 05:00 [place] # (Auto) 0.0 K/uL (0.0-0.8) 05/30/17 05:00 Eos # (Auto) 0.0 K/uL (0.0-0.7) 05/30/17 05:00 Baso # (Auto) 0.0 K/uL (0.0-0.2) 05/30/17 05:00 Total Counted Cancelled 05/22/17 06:45 Neutrophils % (Manual) TEST NOT PERFORMED 05/29/17 05:49 Band Neutrophils % 2 % (0-2) 05/24/17 04:25 Lymphocytes % (Manual) 100 % (20-50) H 05/29/17 05:49 Reactive Lymphs % Cancelled 05/22/17 06:45 Monocytes % (Manual) TEST NOT PERFORMED 05/29/17 05:49 Eosinophils % (Manual) Cancelled 05/22/17 06:45 Basophils % (Manual) Cancelled 05/22/17 06:45 Metamyelocytes % Cancelled 05/22/17 06:45 Myelocytes % Cancelled 05/22/17 06:45 Promyelocytes % Cancelled 05/22/17 06:45 Blast Cells % Cancelled 05/22/17 06:45 Plasma Cell % (Manual) Cancelled 05/22/17 06:45 Nucleated RBC % Cancelled 05/22/17 06:45 Hypersegmented Polys Cancelled 05/22/17 06:45 Smudge Cells Cancelled 05/22/17 06:45 Toxic Granulation Present 05/24/17 04:25 Dohle Bodies Cancelled 05/22/17 06:45 Jessica Rods Cancelled 05/22/17 06:45 Platelet Estimate Markedly decreased (NORMAL) L 05/29/17 05:49 Plt Clumps, EDTA Cancelled 05/22/17 06:45 Large Platelets Present 05/24/17 04:25 Giant Platelets Present 05/20/17 17:40 RBC Morphology Cancelled 05/22/17 06:45 Polychromasia Slight 05/20/17 17:40 Hypochromasia (manual) Slight 05/29/17 05:49 Poikilocytosis (manual Slight 05/29/17 05:49 Basophilic Stippling Cancelled 05/22/17 06:45 Anisocytosis (manual) Slight 05/29/17 05:49 Microcytosis (manual) Moderate 05/20/17 17:40 Macrocytosis (manual) Cancelled 05/22/17 06:45 Spherocytes Cancelled 05/22/17 06:45 Sickle Cells Cancelled 05/22/17 06:45 Target Cells Cancelled 05/22/17 06:45 Tear Drop Cells Slight 05/29/17 05:49 Ovalocytes Slight 05/29/17 05:49 Stomatocytes Slight 05/29/17 05:49 Helmet Cells Cancelled 05/22/17 06:45 [place] Bodies Cancelled 05/22/17 06:45 [place] Cells Cancelled 05/22/17 06:45 Acanthocytes (Spur) Slight 05/23/17 04:20 Rouleaux Slight 05/29/17 05:49 Schistocytes Slight 05/28/17 06:15 PT 18.8 Seconds (9.8-13.1) H 05/29/17 05:49 INR 1.7 (0.9-1.2) H 05/29/17 05:49 APTT 46.2 Seconds (25.6-37.1) H 05/29/17 05:49 Fibrinogen 694 mg/dl (200-400) H* 05/27/17 04:20 pCO2 27 mm/Hg (35-45) L 05/29/17 00:19 pO2 89 mm/Hg (80-100) 05/29/17 00:19 HCO3 23.9 mmol/L (21-28) 05/29/17 00:19 ABG pH 7.50 (7.35-7.45) H 05/29/17 00:19 ABG Total CO2 21.9 mmol/L (22-28) L 05/29/17 00:19 ABG O2 Saturation 99.9 % (95-98) H 05/29/17 00:19 ABG O2 Content 13.7 ML/dL (15-23) L 05/29/17 00:19 ABG Base Excess -1.3 mmol/L (-2.0-3.0) 05/29/17 00:19 ABG Hemoglobin 10.0 g/dL (11.7-17.4) L 05/29/17 00:19 ABG Carboxyhemoglobin 2.0 % (0.5-1.5) H 05/29/17 00:19 POC ABG HHb (Measured) 0.1 % (0.0-5.0) 05/29/17 00:19 ABG Methemoglobin 1.1 % (0.0-3.0) 05/29/17 00:19 ABG O2 Capacity 13.7 mL/dL (16-24) L 05/29/17 00:19 Terry Test Yes 05/29/17 00:19 ABG Potassium 3.7 mmol/L (3.6-5.2) 05/24/17 13:08 VBG pH 7.49 (7.32-7.43) H 05/20/17 17:26 VBG pCO2 24 mmHg (40-60) L 05/20/17 17:26 VBG HCO3 21.9 mmol/L 05/20/17 17:26 VBG Total CO2 19.0 mmol/L (22-28) L 05/20/17 17:26 VBG O2 Sat (Calc) 98.9 % (40-65) H 04/13/18 17:26 VBG Base Excess -3.9 mmol/L (0.0-2.0) L 05/20/17 17:26 VBG Potassium 4.6 mmol/L (3.6-5.2) 05/20/17 17:26 A-a O2 Difference 162.0 mm/Hg 05/29/17 00:19 Hgb O2 Saturation 96.8 % (95.0-98.0) 05/29/17 00:19 Sodium 124.0 mmol/L (132-148) L 05/24/17 13:08 Chloride 101.0 mmol/L (98-107) 05/24/17 13:08 Glucose 152 mg/dL (75-110) H 05/24/17 13:08 Lactate 2.2 mmol/L (0.7-2.1) H 05/24/17 13:08 Liter Flow 20 05/29/17 00:19 Vent Mode High flow lpm 05/29/17 00:19 FiO2 40.0 % 05/29/17 00:19 Crit Value Called To Gaurav thompson 05/24/17 13:08 Crit Value Called By Pako jeong 05/24/17 13:08 Crit Value Read Back Y 05/24/17 13:08 Blood Gas Notified Time 1317 05/24/17 13:08 Sodium 132 mmol/l (132-148) 05/31/17 05:00 Potassium 3.9 MMOL/L (3.6-5.0) 05/31/17 05:00 Chloride 99 mmol/L (98-107) 05/31/17 05:00 Carbon Dioxide 22 mmol/L (22-30) 05/31/17 05:00 Anion Gap 15 (10-20) 05/31/17 05:00 BUN 62 mg/dl (9-20) H 05/31/17 05:00 Creatinine 1.6 mg/dl (0.8-1.5) H 05/31/17 05:00 Est GFR ( Amer) 59 05/31/17 05:00 Est GFR (Non-Af Amer) 48 05/31/17 05:00 Random Glucose 113 mg/dL (75-110) H 05/31/17 05:00 Lactic Acid 1.5 MMOL/L (0.7-2.1) 05/25/17 04:45 Uric Acid 4.8 mg/Dl (3.5-8.5) 05/31/17 05:00 Calcium 8.5 mg/dL (8.4-10.2) 05/31/17 05:00 Magnesium 2.1 MG/DL (1.6-2.3) 05/30/17 11:05 Total Bilirubin 13.5 mg/dl (0.2-1.3) H 05/30/17 05:00 Direct Bilirubin 11.7 mg/ml (0.0-0.4) H 05/27/17 09:41 AST 48 U/L (17-59) 05/30/17 05:00 ALT 60 U/L (21-72) 05/30/17 05:00 Alkaline Phosphatase 1128 U/L (38-126) H 05/30/17 05:00 Lactate Dehydrogenase 429 U/L (313-618) 05/23/17 14:12 Total Protein 5.0 G/DL (6.3-8.2) L 05/30/17 05:00 Albumin 2.2 g/dL (3.5-5.0) L 05/30/17 05:00 Globulin 2.8 gm/dL (2.2-3.9) 05/30/17 05:00 Albumin/Globulin Ratio 0.8 (1.0-2.1) L 05/30/17 05:00 Alpha Fetoprotein 0.9 IU/mL (0.0-7.22) 05/24/17 14:27 Procalcitonin 33.30 NG/ML (0.19-0.49) H 05/26/17 15:32 TSH 3rd Generation 1.27 mIU/ML (0.46-4.68) 05/25/17 04:45 Arterial Blood Potassium 3.7 mmol/L (3.6-5.2) 05/24/17 13:08 Venous Blood Potassium 4.6 mmol/L (3.6-5.2) 05/20/17 17:26 Urine Color [place] (YELLOW) 05/23/17 19:00 Urine Clarity Cloudy (Clear) 05/23/17 19:00 Urine pH 5.0 (5.0-8.0) 05/23/17 19:00 Ur Specific [place] 1.021 (1.003-1.030) 05/23/17 19:00 Urine Protein Negative mg/dL (NEGATIVE) 05/23/17 19:00 Urine Glucose (UA) Neg mg/dL (Normal) 05/23/17 19:00 Urine Ketones Negative mg/dL (NEGATIVE) 05/23/17 19:00 Urine Blood Small (NEGATIVE) 05/23/17 19:00 Urine Nitrate Negative (NEGATIVE) 05/23/17 19:00 Urine Bilirubin Moderate (NEGATIVE) 05/23/17 19:00 Urine Urobilinogen 4.0 mg/dL (0.2-1.0) 05/23/17 19:00 Ur Leukocyte Esterase Neg Jovani/uL (Negative) 05/23/17 19:00 Urine RBC (Auto) 6 /hpf (0-3) H 05/23/17 19:00 Urine Microscopic WBC 4 /hpf (0-5) 05/23/17 19:00 Ur Squamous Epith Cells < 1 /hpf (0-5) 05/21/17 10:30 Urine Bacteria Rare (<OCC) 05/23/17 19:00 Urine Osmolality 426 mosm/kg (300-1000) 05/26/17 12:51 Ur Random Creatinine 54.0 mg/dL 05/26/17 12:51 Ur Random Sodium 36 mmol/L 05/26/17 12:51 Vancomycin Trough 8.2 ug/mL (5.0-10.0) 05/30/17 11:30 C. difficile Ag & Toxin Negative (NEGATIVE) 05/25/17 08:28 Hepatitis A IgM Ab Negative (NEGATIVE) 05/24/17 14:27 Hep Bs Antigen Negative (NEGATIVE) 05/24/17 14:27 Hep B Core IgM Ab Negative (NEGATIVE) 05/24/17 14:27 Hepatitis C Antibody Negative (NEGATIVE) 05/24/17 14:27 Blood Type O POSITIVE 05/27/17 22:59 Antibody Screen Negative 05/27/17 22:59 Crossmatch See Detail 05/27/17 22:59 BBK History Checked Patient has bt 05/27/17 22:59 - Hospital Course Hospital Course: 37 y/o male with PMHx of HIV/AIDS and recent diagnosed Hodgkins Lymphoma stage 4 was admitted due to persistent fevers, ascitis and weakness. Patient s/p first cycle of chemo. Patient with continuos tachycardia, spiking fever, developed anasarca, jaundice, elevated LFT. Pancytopenia, transfused PRBC 3 units and platelets 2 units. Patient tachypneic requiring HFNC oxygen, ICU stay due to progressive deteriorate, ADONAY, neutropenic precautions. During stay patient was evaluated by Heme/onc, ID, GI, Nephrology. Prophylactic treatment for PCP, Cryptosporidium, nosocomial infections. Negative blood, stool, urine cultures, no MRSA detected. Normal CXR and Echo. ERCP negative for biliary obstruction. Patient and family requested transfer to [facility] for further oncology management, patient in stable condition transferred today. Discharge Exam - Head Exam Head Exam: ATRAUMATIC, NORMOCEPHALIC - Eye Exam Eye Exam: EOMI, PERRL, Scleral icterus - ENT Exam ENT Exam: Mucous Membranes Dry - Respiratory Exam Respiratory Exam: Clear to PA & Lateral, NORMAL BREATHING PATTERN. absent: Rales, Wheezes - Cardiovascular Exam Cardiovascular Exam: Tachycardia, REGULAR RHYTHM, +S1, +S2 - GI/Abdominal Exam GI & Abdominal Exam: Distended, Normal Bowel Sounds, Tenderness - Exam Exam: Scrotal Swelling - Extremities Exam Additional comments: B/L edematous lower extremities. - Neurological Exam Neurological exam: Alert, CN II-XII Intact, Oriented x3 - Psychiatric Exam Psychiatric exam: Anxious - Skin Additional comments: Jaundiced Discharge Plan - Follow Up Plan Condition: FAIR Disposition: OTHER INSTITUTION Instructions: HIV/AIDS (DC), Hodgkin Lymphoma, Adult (DC)
--- NOTE | 2017-05-31 15:37 | CP.CCUPN ---
CCU Subjective - Physician Review Events Since Last Encounter (Free Text): 05/31/17 15:35 The patient was Seen/interviewed and examined by me at the bedside during ICU round, Medical records reviewed and Management issues were discussed and formulated with the house staff. Events reviewed Mr Gautam is 35 Years old Male with HIV on HARRT (CD4 count<20 on 04/25/2017) Vitiligo and recently diagnosed stage 4 Hodgkins Lymphoma (on Tuesday05/09/17 per Hemo/Onc) Patient admitted on 05/20/17 for persistent fevers. Patient received chemo last week, first dose of chemo on 05/20 ICU consult called on 05/24 for recurrent fever (Blood and urine culture NGTD, CXR no infilterate), tachycardia Patient fevers have been chronic likely in the sitting of Hodgkin's Lymphoma Pt reports feeling little better today. Pt AAO x3. Alert, follows commands Denies any chest pain or Palpitations, but SOB on minimal exertion Clinically improving No Vasopressors Awake, comfortable, NAD, on high flow O2 supplement Last 24H I&O 580/2650 Patient stable for transfer out of ICU, getting transferred to [facility] for further oncology management, He has been accepted by Oncology team MRCP 05/25: No evidence of biliary obstruction. Numerous ill-defined hepatic masses suspicious for metastatic disease. Hepatic splenomegaly. Ascites. CCU Objective - Vital Signs / Intake & Output Vital Signs (Last 4 hours): Vital Signs Temp Pulse Resp BP Pulse Ox 05/31/17 14:00 113 H 29 H 106/66 100 05/31/17 12:00 105 F H 48 L 16 114/68 98 Intake and Output (Last 8hrs): Intake & Output 05/31/17 05/31/17 05/31/17 06:59 14:59 22:59 Intake Total 60 150 Output Total 400 800 Balance -340 -650 Intake: Oral 60 150 Output: Urine 400 800 Urine, Voided 400 800 Other: # Bowel Movements 1 - Physical Exam Head: Positive for: Atraumatic, Normocephalic Pupils: Positive for: PERRL. Negative for: Sluggish Extroacular Muscles: Positive for: EOMI Conjunctiva: Positive for: Normal, Icteric. Negative for: Injected Ears: Positive for: Normal Mouth: Positive for: Moist Mucous Membranes Pharnyx: Positive for: Normal Nose (External): Positive for: Atraumatic Neck: Positive for: Normal Range of Motion, Trachea Midline. Negative for: Meningeal Signs, MIDLINE TENDERNESS, Paraspinal Tenderness, JVD, Lymphadenopathy , Bruit, Other Respiratory/Chest: Positive for: Clear to Auscultation, Good Air Exchange, Decreased Breath Sounds, Tachypneic. Negative for: Respiratory Distress, Accessory Muscle Use, Wheezes, Rales, Retracting, Rhonchi Cardiovascular: Positive for: Regular Rate and Rhythm, Normal S1, S2, Peripheal Pulses Present, Tachycardic. Negative for: Murmurs Abdomen: Positive for: Normal Bowel Sounds. Negative for: Tenderness, Distention Back: Negative for: CVA Tenderness Upper Extremity: Positive for: Normal Inspection. Negative for: Cyanosis, Edema , Normal ROM Lower Extremity: Positive for: Normal Inspection, NORMAL PULSES. Negative for: Edema, CALF TENDERNESS Neurological: Positive for: GCS=15, CN II-XII Intact, Speech Normal, Motor Func Grossly Intact, Normal Sensory Function Psychiatric: Positive for: Alert, Oriented x 3 - Medications Active Medications: Active Medications Generic Name Dose Route Start Last Admin Trade Name Freq PRN Reason Stop Dose Admin Acetaminophen 650 mg 05/26/17 10:09 05/30/17 00:34 Tylenol 650mg/20.3ml Solution Ud PO 650 mg Q4 PRN Administration Temperature Atovaquone 1,500 mg 05/21/17 09:00 05/31/17 08:23 Mepron PO 1,500 mg DAILY DARRION Administration Protocol Furosemide 40 mg 05/24/17 09:00 05/31/17 08:31 Lasix IVP 40 mg DAILY DARRION Administration Home Med 1 unit 05/21/17 09:00 05/31/17 08:25 Patient's Own Medication PO 1 unit DAILY DARRION Administration Meropenem 500 mg/ Sodium 100 mls @ 100 mls/hr 05/28/17 17:00 05/31/17 08:24 Chloride IVPB 100 mls/hr Q8 DARRION Administration Protocol Vancomycin HCl 500 mg/ Sodium 100 mls @ 100 mls/hr 05/29/17 09:00 05/31/17 09 :05 Chloride IVPB 100 mls/hr DAILY DARRION Administration Protocol Micafungin Sodium 50 mg/ 100 mls @ 100 mls/hr 05/28/17 17:00 05/31/17 10:05 Sodium Chloride IVPB 100 mls/hr DAILY DARRION Administration Protocol Lidocaine 1 ea 05/23/17 11:30 05/31/17 08:22 Lidoderm TD 1 ea DAILY DARRION Administration Metoprolol Tartrate 25 mg 05/24/17 21:00 05/31/17 08:23 Lopressor PO 25 mg Q12 DARRION Administration Morphine Sulfate 2 mg 05/23/17 13:17 05/23/17 14:45 Morphine IVP 2 mg Q4 PRN Administration Pain, moderate (4-7) Nystatin 5 ml 05/22/17 13:00 05/31/17 12:21 Nystatin Oral Susp PO 5 ml QID DARRION Administration Ondansetron HCl 4 mg 05/20/17 19:35 Zofran Inj IVP Q6 PRN Nausea/Vomiting Polyethylene Glycol 17 gm 05/28/17 09:00 05/31/17 08:25 Miralax PO 17 gm DAILY DARRION Administration Saliva Substitute 5 ml 05/21/17 15:34 05/26/17 08:16 First Magic Mouthwash PO 5 ml Q4 PRN Administration Sore Throat Silver Sulfadiazine 1 applic 05/28/17 11:15 05/31/17 08:25 Silvadene 1% 50 Gm TOP 1 applic Q12 DARRION Administration - Patient Studies Lab Studies: Microbiology Studies 05/25/17 08:28 Ova and Parasite Concentrate Exam - Final Stool Lab Studies 05/31/17 05/31/17 Range/Units 05:00 05:00 WBC 1.4 L* D (4.8-10.8) K/uL RBC 3.86 L (4.40-5.90) Mil/uL Hgb 10.5 L (12.0-18.0) g/dL Hct 31.3 L (35.0-51.0) % MCV 81.3 (80.0-94.0) fl MCH 27.2 (27.0-31.0) pg MCHC 33.5 (33.0-37.0) g/dL RDW 17.4 H (11.5-14.5) % Plt Count 17 L* (130-400) K/uL Sodium 132 (132-148) mmol/l Potassium 3.9 (3.6-5.0) MMOL/L Chloride 99 (98-107) mmol/L Carbon Dioxide 22 (22-30) mmol/L Anion Gap 15 (10-20) BUN 62 H (9-20) mg/dl Creatinine 1.6 H (0.8-1.5) mg/dl Est GFR ( Amer) 59 Est GFR (Non-Af Amer) 48 Random Glucose 113 H (75-110) mg/dL Uric Acid 4.8 (3.5-8.5) mg/Dl Calcium 8.5 (8.4-10.2) mg/dL Laboratory Results - last 24 hr 05/31/17 05/31/17 05:00 05:00 WBC 1.4 L* D RBC 3.86 L Hgb 10.5 L Hct 31.3 L MCV 81.3 MCH 27.2 MCHC 33.5 RDW 17.4 H Plt Count 17 L* Sodium 132 Potassium 3.9 Chloride 99 Carbon Dioxide 22 Anion Gap 15 BUN 62 H Creatinine 1.6 H Est GFR ( Amer) 59 Est GFR (Non-Af Amer) 48 Random Glucose 113 H Uric Acid 4.8 Calcium 8.5 Critical Care Progress Note - Nutrition Nutrition: Nutrition Category Date Time Status Regular Diet [DIET] Diets 05/29/17 Breakfast Active Assessment/Plan (1) Fever and chills Current Visit: No Status: Acute Comment: Persistant fever, Likely 2/2 to malignancy Continue with empiric coverage with Vancomycin and Meropenem as per ID And now on micafungin day #3 Blood and urine culture NGTD CXR no infilterate (2) Hodgkin's lymphoma Current Visit: Yes Status: Acute Comment: Stage IV Received the first chemo cycle on 05/20/17 with Adriamycin/Bleomacyn/Vinblastine/ Decarbazine Patient getting transfered to [facility] for further oncology mangement (3) AIDS (acquired immunodeficiency syndrome), CD4 <=200 Current Visit: No Status: Acute Comment: Continue current HIV treatment as per ID Continue Mepron (atovaquone) 1500 mg PO daily for PCP prophylaxis (4) Anasarca Current Visit: No Status: Acute (5) Tachycardia Current Visit: No Status: Acute (6) Elevated LFTs Current Visit: Yes Status: Acute Comment: GI consult on board Elevated LFTs/bilirubin with liver mets most likely due to malignancy and chemo Liver US: wnl MRCP 05/25: No evidence of biliary obstruction. Numerous ill-defined hepatic masses suspicious for metastatic disease. Hepatic splenomegaly. Ascites.
[2017-05-31 15:41] VITALS: RESP 40
[2017-05-31 16:14] VITALS: BP 111/70; PULSE 118; TEMP 98.7; O2SAT 94
--- NOTE | 2017-05-31 19:23 | CP.PCM.PN ---
Subjective - Date & Time of Evaluation Date of Evaluation: 05/31/17 Time of Evaluation: 12:00 - Subjective Subjective: For transfer to [place] Objective - Vital Signs/Intake and Output Vital Signs (last 24 hours): Temp Pulse Resp BP Pulse Ox 98.7 F 118 H 40 H 111/70 94 L 05/31/17 16:00 05/31/17 16:00 05/31/17 15:41 05/31/17 16:00 05/31/17 16:00 Intake and Output: 05/31/17 06/01/17 18:59 06:59 Intake Total 250 Output Total 800 Balance -550 - Labs Labs: 05/31/17 05:00 05/31/17 05:00 PT 18.8 Seconds (9.8-13.1) H 05/29/17 05:49 INR 1.7 (0.9-1.2) H 05/29/17 05:49 APTT 46.2 Seconds (25.6-37.1) H 05/29/17 05:49 - Head Exam Head Exam: ATRAUMATIC - Eye Exam Eye Exam: Scleral icterus - ENT Exam ENT Exam: Mucous Membranes Dry - Respiratory Exam Respiratory Exam: Decreased Breath Sounds - Cardiovascular Exam Cardiovascular Exam: +S1, +S2 - GI/Abdominal Exam GI & Abdominal Exam: Normal Bowel Sounds Assessment and Plan (1) Pancytopenia Assessment & Plan: secondary to chemotherapy and AIDS WBC improving with GCSF transfusion support PRN goal plt > 10,000 Status: Acute (2) Hodgkin's lymphoma Assessment & Plan: stage IVb s/p ABVD chemotherapy large tumor burden in liver; elevated bilirubin Status: Acute
--- NOTE | 2017-06-01 17:12 | CP.PCM.PN ---
Subjective - Date & Time of Evaluation Date of Evaluation: 05/31/17 Time of Evaluation: 07:00 - Subjective Subjective: Patient seen and examined today in ICU during rounding, reports feeling a little better. less tachypneic still on HFNC at 20L. Low grade fever. Patient accepted in [facility] for further oncology management. Awaiting transfer to [facility]. Objective - Vital Signs/Intake and Output Vital Signs (last 24 hours): Temp Pulse Resp BP Pulse Ox 98.7 F 118 H 40 H 111/70 94 L 05/31/17 16:00 05/31/17 16:00 05/31/17 15:41 05/31/17 16:00 05/31/17 16:00 - Labs Labs: 05/31/17 05:00 05/31/17 05:00 PT 18.8 Seconds (9.8-13.1) H 05/29/17 05:49 INR 1.7 (0.9-1.2) H 05/29/17 05:49 APTT 46.2 Seconds (25.6-37.1) H 05/29/17 05:49 - Constitutional Appears: Cachectic, Chronically Ill - Eye Exam Eye Exam: Scleral icterus - Respiratory Exam Respiratory Exam: Clear to Ausculation Bilateral, NORMAL BREATHING PATTERN. absent: Rales, Wheezes - Cardiovascular Exam Cardiovascular Exam: Tachycardia, REGULAR RHYTHM, +S1, +S2. absent: Murmur - GI/Abdominal Exam GI & Abdominal Exam: Distended, Tenderness, Normal Bowel Sounds - Exam Exam: Scrotal Swelling - Psychiatric Exam Psychiatric exam: Anxious - Skin Additional comments: Anasarca, Jaundiced Assessment and Plan - Assessment and Plan (Free Text) Assessment: 37 yo male with HIV/AIDS and Hodgkins Lymphoma admitted for pancytopenia now in ICU day#8 with persistent tachycardia, tachypnea, and anasarca. Plan: 1- Pancytopenia & Hodgkins Lymphoma - ID on board, Recs appreciated - c/w Vancomycin and Meropenem IV as prophylaxis (day 14) - s/p chemo cycle #1 05/20/17: ABVD - Hematology/Onc on board, Recs appreciated - s/p 3 unit PRBC and 2 units Platelets -CBC: 0.2<9.6/28.6>13 - Continue Granix as per Heme-Oncology 2- Tachycardia/Tachypnea - Continue High Flow oxygen - Continue Metoprolol 25mg PO Q12 3- Anarsarca - Nephro Dr. Star roldan appreciated: - strict oral fluids restriction - s/p albumin repletion Q8 x 3 days 4- Acute kidney injury, improving - BUN/Cr: 65/1.7 - Nephrology on board recommendations appreciated 5- Elevated LFTs/bilirubin with liver mets most likely due to malignancy - GI Dr Austin on board - secondary to chemo/malignancy - MRCP 05/25: negative for biliary obstruction. - ABD xrays: bowel loops distention, possible early bowel obstruction. 6- Oral thrush - c/w PO nystatin - magic mouth wash 7- HIV/AIDS - CD4 count <20, CD4 6% (05/17/17) - C/W current HIV treatment (pt owns medications) - per ID stopped azithro due to interactions w/ chemo (last dose 05/18/17) - c/w Mepron (atovaquone) 1500 mg PO daily (PCP prophylaxis) - start Micafungin 50mg IV daily (prophylaxis) 8- DVT prophylaxis -SCD Only due to Thrombocytopenia 9- Code -Full code, confirmed with patient 05/26/17.
== END 2017-05-31 17:00 | disposition short-term general hospital (02) | DRG 578 ==
LOC: H.ER 16:34 → H.ERHOLD 17:29 → H.TEL 21:05 → H.ICU/CCU 05-24 15:19
PROVIDERS: ADMIT Family Medicine Geriatric Medicine; ATTEND Family Medicine Geriatric Medicine
PROC: 30233R1 Transfusion of Nonautologous Platelets into Peripheral Vein, Percutaneous Approach (ICD-10-PCS; principal; 2017-05-28)
DX: C81.90 Hodgkin lymphoma, unspecified, unspecified site (principal); B20 Human immunodeficiency virus [HIV] disease; N17.9 Acute kidney failure, unspecified; D61.810 Antineoplastic chemotherapy induced pancytopenia; B37.0 Candidal stomatitis; C78.7 Secondary malignant neoplasm of liver and intrahepatic bile duct; D69.59 Other secondary thrombocytopenia; E87.1 Hypo-osmolality and hyponatremia; J98.11 Atelectasis; K76.7 Hepatorenal syndrome; R18.8 Other ascites; R64 Cachexia; D63.8 Anemia in other chronic diseases classified elsewhere; E88.09 Other disorders of plasma-protein metabolism, not elsewhere classified; L80 Vitiligo; N50.89 Other specified disorders of the male genital organs; T45.1X5A Adverse effect of antineoplastic and immunosuppressive drugs, initial encounter; T80.92XA Unspecified transfusion reaction, initial encounter; Y84.8 Other medical procedures as the cause of abnormal reaction of the patient, or of later complication, without mention of misadventure at the time of the procedure; Z79.899 Other long term (current) drug therapy; Z82.49 Family history of ischemic heart disease and other diseases of the circulatory system; R00.0 Tachycardia, unspecified; R06.82 Tachypnea, not elsewhere classified; R16.1 Splenomegaly, not elsewhere classified